=== PATIENT | male | born 1965 | race Caucasian/White ===

== ENCOUNTER 2016-10-06 11:42 | Inpatient (IN) | payer SELFPAY ==
[2016-10-06] MEDS ORDERED: Morphine 4 MG/ML VIAL IVP STA (12:04)
[2016-10-06] MEDS ORDERED: Sodium Chloride 0.9% 1,000 ML IV STA (12:05)
[2016-10-06] MEDS ORDERED: Morphine 4 MG/ML VIAL IVP ONE (12:15)
[2016-10-06 12:22] LABS: BASO % 0.5 % (0.0-2.0); EOS % 0.2 % (0.0-4.0); HEMOGLOBIN 11.7 g/dL (12.0-18.0); LYMPH # 1.2 K/uL (1.0-4.3); LYMPH % 17.5 % (20.0-40.0); MEAN CELL VOLUME 86.2 fl (80.0-94.0); MEAN CORPUSCULAR HEMOGLOBIN 28.4 pg (27.0-31.0); MEAN CORPUSCULAR HGB CONC 32.9 g/dL (33.0-37.0); MEAN PLATELET VOLUME 7.9 fl (7.2-11.7); MONO % 15.4 % (0.0-10.0); NEUT # 4.4 K/uL (1.8-7.0); NEUT % 66.4 % (50.0-75.0); NRBC % 1.1 % (0.0-0.0); RBC 4.14 Mil/uL (4.40-5.90); RED CELL DISTRIBUTION WIDTH 14.9 % (11.5-14.5); WHITE BLOOD COUNT 6.6 K/uL (4.8-10.8)
--- NOTE | 2016-10-06 12:39 | ED PDOC ---
HPI: Abdomen Time Seen by Provider: 10/06/16 11:47 Chief Complaint (Nursing): Abdominal Pain History Per: Patient (presents to the ER with complaints of acute onset of lower abdominal that started about 3 hours prior to arrival. He is s/p CABG at [facility] 2 weeks ago. He is a poor historian and is more limited because of the discomfort.) History/Exam Limitations: no limitations Onset/Duration Of Symptoms: Sudden Onset Severity: Severe Location Of Pain/Discomfort: LLQ Quality Of Discomfort: Sharp Associated Symptoms: Nausea, Vomiting, Loss Of Appetite, Constipation. denies: Fever, Chills Past Medical History Reviewed: Historical Data, Nursing Documentation, Vital Signs Vital Signs: Last Vital Signs Temp 97.6 F 10/06/16 11:44 Pulse 84 10/06/16 13:17 Resp 16 10/06/16 13:17 BP 173/83 H 10/06/16 13:17 Pulse Ox 99 10/06/16 13:17 - Medical History PMH: CAD - Surgical History Surgical History: CABG (about 2 weeks ago) - Family History Family History: States: No Known Family Hx - Living Arrangements Living Arrangements: With Family - Allergies Allergies/Adverse Reactions: Allergies Allergy/AdvReac Type Severity Reaction Status Date / Time No Known Allergies Allergy Verified 10/06/16 11:47 Review of Systems ROS Statement: Except As Marked, All Systems Reviewed And Found Negative Cardiovascular: Negative for: Chest Pain, Palpitations Gastrointestinal: Positive for: Nausea, Vomiting, Abdominal Pain Physical Exam - Reviewed Nursing Documentation Reviewed: Yes Vital Signs Reviewed: Yes - Physical Exam Appears: Positive for: Well, Non-toxic, Uncomfortable Head Exam: Positive for: ATRAUMATIC, NORMAL INSPECTION, NORMOCEPHALIC Skin: Positive for: Normal Color, Warm, DRY Eye Exam: Positive for: Normal appearance, PERRL ENT: Positive for: Normal ENT Inspection Neck: Positive for: Normal, Painless ROM Cardiovascular/Chest: Positive for: Regular Rate, Rhythm Respiratory: Positive for: CNT, Normal Breath Sounds Gastrointestinal/Abdominal: Positive for: Normal Exam, Soft, Tenderness (LLQ), Distended. Negative for: Bowel Sounds, Guarding Back: Positive for: Normal Inspection Rectal: Positive for: Normal Exam Extremity: Positive for: Normal ROM Neurologic/Psych: Positive for: Alert, Oriented - Laboratory Results Result Diagrams: 10/06/16 12:15 10/06/16 12:15 - ECG O2 Sat by Pulse Oximetry: 98 - Critical Care Total Time (In Min): 30 Comments: management of persistent pain and findings of small bowel obstruction Disposition - Clinical Impression Clinical Impression: SBO (small bowel obstruction) - Patient ED Disposition Is Patient to be Admitted: Yes Doctor Will See Patient In The: Hospital - Disposition Disposition: Transfer of Care Disposition Time: 14:00 Condition: GUARDED
[2016-10-06] MEDS ORDERED: Labetalol 5 mg/ml Inj 20ML IVP STA ×3 (12:44→15:23)
[2016-10-06 12:51] LABS: ALBUMIN 3.8 g/dL (3.5-5.0); CALCIUM 9.3 mg/dL (8.4-10.2)
[2016-10-06 13:02] LABS: TROPONIN I 0.044 ng/mL (0.00-0.120)
[2016-10-06] MEDS ORDERED: Morphine 4 MG/ML VIAL IV STA (13:55)
[2016-10-06] MEDS ORDERED: HYDROmorphone 0.5 mg/0.5 ml ISec IVP STA ×2 (15:23→15:47)
[2016-10-06] MEDS ORDERED: HYDROmorphone 0.5 mg/0.5 ml ISec IVP PRN (15:27)
--- NOTE | 2016-10-06 15:27 | CP.PCM.HP ---
History of Present Illness - History of Present Illness History of Present Illness: CC: pain in stomach HPI 51 M PMH CABG 2 weeks ago, back pain, HTN, presents with severe sharp abdominal pain associated with nausea and emesis for two days. Patient is accompanied by friend. In ER, pt found to have intractable abdominal pain, disproportionate to exam. CT showed evidence of mesenteric ischemia/infarction. Seen by surgery in ER, patient to go for emergent exploratory laparatomy with Dr. Sanchez. Pt also hypertensive, given labetalol 20 mg IVP x3, with moderate control. Pt has not taken any meds for 2 days bc of emesis. Elevated transaminases, GOPI. Pt to admit to ICU postoperatively. ROS: per HPI all other systems reviewd and neg by me PMSH: CABG 2 weeks ago, back pain, HTN FH: DENIES SH: dENIES TOBACCO ETOH IVDU MEDS: PENDING NKDA VITALS Reviewed GEN: pt in moderate distress, pale, diaphoretic HEENT: NCAT PERRL EOMI HEART: +RRR +S1S2, no MRG LUNG: CTAB no WRR ABD: soft generalized severe tenderness throughout. +rbound. +guarding. EXT: pale, strong pulses SKIN: warm, diaphoretic Psych: mod distress, normal affect 10/06/16 10/06/16 10/06/16 16:36 16:20 16:20 WBC RBC Hgb Hct MCV MCH MCHC RDW Plt Count MPV Neut % (Auto) Lymph % (Auto) [place] % (Auto) Eos % (Auto) Baso % (Auto) Neut # Lymph # [place] # Eos # Baso # PT 18.5 H INR 1.6 H APTT 33.3 Sodium Potassium Chloride Carbon Dioxide Anion Gap BUN Creatinine Est GFR ( Amer) Est GFR (Non-Af Amer) Random Glucose Calcium Magnesium Total Bilirubin AST ALT Alkaline Phosphatase Troponin I Total Protein Albumin Globulin Albumin/Globulin Ratio Lipase Urine Color Yellow Urine Clarity Slighty-cloudy Urine pH 5.0 Ur Specific [place] 1.026 Urine Protein 100 Urine Glucose (UA) 50 Urine Ketones Negative Urine Blood Moderate Urine Nitrate Negative Urine Bilirubin Negative Urine Urobilinogen 0.2-1.0 Ur Leukocyte Esterase Neg Urine RBC (Auto) 1 Urine Microscopic WBC 2 Ur Squamous Epith Cells < 1 Urine Bacteria Rare Blood Type Pending Antibody Screen Pending BBK History Checked No verified bt 10/06/16 10/06/16 12:15 12:15 WBC 6.6 RBC 4.14 L Hgb 11.7 L Hct 35.7 MCV 86.2 MCH 28.4 MCHC 32.9 L RDW 14.9 H Plt Count 353 MPV 7.9 Neut % (Auto) 66.4 Lymph % (Auto) 17.5 L [place] % (Auto) 15.4 H Eos % (Auto) 0.2 Baso % (Auto) 0.5 Neut # 4.4 Lymph # 1.2 [place] # 1.0 H Eos # 0.0 Baso # 0.0 PT INR APTT Sodium 141 Potassium 3.3 L Chloride 106 Carbon Dioxide 17 L Anion Gap 21 H BUN 27 H Creatinine 1.8 H Est GFR ( Amer) 49 Est GFR (Non-Af Amer) 40 Random Glucose 187 H Calcium 9.3 Magnesium 2.0 Total Bilirubin 1.4 H AST 974 H ALT 1413 H Alkaline Phosphatase 145 H Troponin I 0.0440 Total Protein 7.6 Albumin 3.8 Globulin 3.7 Albumin/Globulin Ratio 1.0 Lipase 46 Urine Color Urine Clarity Urine pH Ur Specific [place] Urine Protein Urine Glucose (UA) Urine Ketones Urine Blood Urine Nitrate Urine Bilirubin Urine Urobilinogen Ur Leukocyte Esterase Urine RBC (Auto) Urine Microscopic WBC Ur Squamous Epith Cells Urine Bacteria Blood Type Antibody Screen BBK History Checked 51 M PMH CABG 2 weeks ago, back pain, HTN, presents with severe sharp abdominal pain associated with nausea and emesis for two days. Patient is accompanied by friend. In ER, pt found to have intractable abdominal pain, disproportionate to exam. CT showed evidence of mesenteric ischemia/infarction. Seen by surgery in ER, patient to go for emergent exploratory laparatomy with Dr. Sanchez. Pt also hypertensive, given labetalol 20 mg IVP x3, with moderate control. Pt has not taken any meds for 2 days bc of emesis. Elevated transaminases, GOPI. Pt to admit to ICU postoperatively. Mesenteric Ischemia/Infarct Surgery Dr. Sanchez Emergent ExLap 10/06/16 Pain control monitor vitals in ICU Hypertension Secondary to mesenteric ischemia pt on metoprolol at home monitor Elevated transaminases likely secondary to mesenteric ischemia trend hepatic function monitor GOPI continue to hydrate patient monitor renal function CAD s/p CABG 2 weeks ago holding asa cont metoprolol monitor Present on Admission - Present on Admission Any Indicators Present on Admission: No Past Patient History - SURGICAL HISTORY Hx Coronary Artery Bypass Graft: Yes (about 2 weeks ago) Meds Allergies/Adverse Reactions: Allergies Allergy/AdvReac Type Severity Reaction Status Date / Time No Known Allergies Allergy Verified 10/06/16 11:47 Results - Vital Signs Recent Vital Signs: Last Vital Signs Temp 97.6 F 10/06/16 11:44 Pulse 83 10/06/16 14:47 Resp 16 10/06/16 14:47 BP 158/98 H 10/06/16 14:47 Pulse Ox 98 10/06/16 14:47 - Labs Result Diagrams: 10/06/16 12:15 10/06/16 12:15
[2016-10-06] MEDS ORDERED: HYDROmorphone 0.5 mg/0.5 ml ISec ONE (15:48)
[2016-10-06] MEDS ORDERED: Potassium CL 10mEq/100ml 100 ML IVPB SCH (16:00)
--- NOTE | 2016-10-06 16:01 | CT ---
PROCEDURE: CT abdomen pelvis dated 10/06/2016 HISTORY: SBO COMPARISON: Comparison made with plain film radiographs of the abdomen obtained earlier same day TECHNIQUE: Contiguous axial images of the abdomen and pelvis. Oral contrast was administered. No IV contrast given. Coronal and Sagittal reformats generated. Radiation dose: Total exam DLP = 1215.93 mGy-cm. This CT exam was performed using one or more of the following dose reduction techniques: Automated exposure control, adjustment of the mA and/or kV according to patient size, and/or use of iterative reconstruction technique. FINDINGS: LOWER THORAX: There are bilateral effusions and mild bibasilar atelectasis left greater than right. . There appears be a small pericardial effusion as well. In situ NGT, the tip of which is located in the stomach. LIVER: Diffuse portal venous air present. No obvious renal mass or collection GALLBLADDER AND BILE DUCTS: Gallbladder is physiologically distended. No evidence of intraluminal gallbladder calculi. PANCREAS: The pancreas slightly atrophic and fatty replaced. SPLEEN: Spleen exhibits normal size and attenuation pattern without mass collection or calcification. ADRENALS: No adrenal lesions. KIDNEYS AND URETERS: Kidneys exhibit relatively symmetric size. Small calcifications are present within both renal pelves. No evidence of hydronephrosis. There is a rounded approximately 13 mm exophytic masslike density arising from the posterior and medial aspect mid to lower pole of the right kidney with Hounsfield units in the mid 30s. Rule out hyperdense cyst versus solid mass. Followup study recommended to exclude malignant lesion. BLADDER: Urinary bladder is incompletely distended which may account for thick-walled appearance. Muscular hypertrophy may contribute. Rule out cystitis REPRODUCTIVE: Prostate gland measures approximately 3.3 cm. Prostatic calcifications are present. APPENDIX: Normal-appearing appendix of best seen on coronal image number [id number]. BOWEL: Evaluation of the bowel is limited due to the lack of oral contrast material. Multiple loops of small bowel exhibit mild dilatation and extensive pneumatosis intestinalis. Findings are of uncertain etiology however differential diagnosis would include bowel small-bowel obstruction,, bowel ischemia, infection/inflammatory bowel disease to name a few possibilities. . There are multiple colonic diverticula seen along sigmoid colon however no definitive radiographic evidence of acute diverticulitis. Few scattered colonic diverticula seen along the at descending colon. Mild diffuse submucosal fatty deposition of nonspecific. Rule out the sequela of chronic inflammation. PERITONEUM: Air is seen diffusely within the mesenteric venous system. . No definitive radiographic evidence of free fluid. LYMPH NODES: Unremarkable. No enlarged lymph nodes. VASCULATURE: No evidence of abdominal aortic aneurysm. BONES: Mild multilevel degenerative spondylosis of the lower thoracic and lumbar spine. OTHER FINDINGS: Bilateral fat containing inguinal hernias are present. IMPRESSION: The multiple dilated loops of small bowel which exhibit pneumatosis intestinalis and extensive portal venous air. Rule out bowel ischemia/ infarction, infection or inflammatory bowel disease. . . Emergent surgical consultation recommended Diverticulosis without definitive radiographic evidence of acute diverticulitis. Bilateral effusions and bibasilar atelectasis left larger than right. Small pericardial effusion. Cardiomegaly. Small exophytic hyperdense masslike lesion arising from the right kidney of; rule out hyperdense cyst versus a mass. Followup studies recommended to further characterize this lesion. Nonobstructing bilateral renal calculi. See above discussion for additional findings and details. These findings discussed with Dr. Hart and Dr. Crane 3:35 p.m. with written down and read back verification
--- NOTE | 2016-10-06 16:26 | RAD ---
PROCEDURE: Radiographs of the chest and abdomen (obstructive series) HISTORY: abdominal pain COMPARISON: This study was read in conjunction with subsequent CT scan abdomen pelvis TECHNIQUE: AP radiograph of the chest, with upright and supine radiographs of the abdomen. FINDINGS: CHEST: Sternotomy wires noted. Heart size appears borderline/mildly enlarged. Aorta is ectatic and uncoiled. Suspect mild bibasilar atelectasis left greater than right. Left-sided effusion is also felt to be present. ABDOMEN AND PELVIS: No free air seen under the diaphragmatic surfaces. . Multiple distended air-filled loops of small bowel predominately located in the left abdomen suggested. Pneumatosis intestinalis seen to better advantage on CT scan of the abdomen pelvis. Rule out bowel obstruction, ischemia, infection or inflammatory bowel disease. . These findings discussed with Dr. Hart and Dr. Crane 3:35 p.m. with written down and read back verification. Note that the portal venous air is not appreciated on this study. Please refer to CT scan abdomen pelvis Emergent surgical consultation recommended IMPRESSION: Suspect mild bibasilar atelectasis left greater than right. Left-sided effusion is also felt to be present Multiple distended air-filled loops of small bowel predominately located in the left abdomen suggested. Pneumatosis intestinalis seen to better advantage on CT scan of the abdomen pelvis. Rule out bowel obstruction, ischemia, infection or inflammatory bowel disease. . These findings discussed with Dr. Hart and Dr. Crane 3:35 p.m. with written down and read back verification. Note that the portal venous air is not appreciated on this study. Please refer to CT scan abdomen pelvis Emergent surgical consultation recommended
[2016-10-06 16:51] LABS: SQUAMOUS EPITHIAL < 1 /hpf (0-5); URINE BACTERIA RARE (<OCC); URINE BILIRUBIN NEGATIVE (NEGATIVE); URINE BLOOD MODERATE (NEGATIVE); URINE CLARITY SLIGHTY-CLOUDY (Clear); URINE COLOR YELLOW (YELLOW); URINE GLUCOSE (UA) 50 mg/dL (Normal); URINE LEUKOCYTE ESTERASE NEG Leu/uL (Negative); URINE NITRATE NEGATIVE (NEGATIVE); URINE PROTEIN 100 mg/dL (NEGATIVE); URINE UROBILINOGEN 0.2-1.0 mg/dL (0.2-1.0)
[2016-10-06 16:52] LABS: INR 1.6 (0.9-1.2); PARTIAL THROMBOPLASTIN TIME 33.3 Seconds (25.6-37.1); PROTHROMBIN TIME 18.5 Seconds (9.8-13.1)
[2016-10-06] MEDS ORDERED: Propofol 10 mg/ml Inj (20 ML) ONE (17:05)
[2016-10-06] MEDS ORDERED: Midazolam 2 MG/2 ML VIAL ONE (17:05)
[2016-10-06] MEDS ORDERED: Succinylcholine 200 mg/10 ml Inj IV ONE (17:05)
[2016-10-06] MEDS ORDERED: Lidocaine 4% (Laryng-O-Jet) Kit MM ONE (17:06)
[2016-10-06] MEDS ORDERED: Neostigmine Methylsulfate 2 MG/2 ML ML IV ONE (17:06)
[2016-10-06] MEDS ORDERED: Lidocaine Hydrochloride 5 ML INJ ONE (17:06)
[2016-10-06] MEDS ORDERED: Rocuronium 10 mg/ml (5 ml) ONE (17:08)
--- NOTE | 2016-10-06 17:27 | CP.PCM.CON ---
History of Present Illness - History of Present Illness History of Present Illness: 51 y.o. male comes to the hospital c/o severe diffuse abdominal pain for the duration of the last 2 days. Patient is in severe pain and not providing good history so most of the history is obtained from ER and medical staff. Patient reports nausea and vomiting, no fever or chills, states that never had such pain before. No urinary symptoms, no other complains at present time. Of note patient had CABG 2 weeks ago at another medical facility. Review of Systems - Constitutional Constitutional: As Per HPI - EENT Eyes: Other (unremarkable) Ears: Other (unremarkable) Nose/Mouth/Throat: Other (unremarkable) - Cardiovascular Cardiovascular: As Per HPI - Respiratory Respiratory: Other (unremarkable) - Gastrointestinal Gastrointestinal: As Per HPI - Genitourinary Genitourinary: As Per HPI - Reproductive: Male Reproductive:Male: Other (unremarkable) - Musculoskeletal Musculoskeletal: Other (unremarkable) - Integumentary Integumentary: Other (unremarkable) - Neurological Neurological: Other (unremarkable) - Psychiatric Psychiatric: Other (unremarkable) - Endocrine Endocrine: Other (unremarkable) - Hematologic/Lymphatic Hematologic: Other (unremarkable) Past Patient History - Past Medical History & Family History Past Medical History?: Yes - Past Social History Smoking Status: Former Smoker - CARDIAC Hx Cardiac Disorders: Yes - PULMONARY Hx Respiratory Disorders: No - NEUROLOGICAL Hx Neurological Disorder: No - HEENT Hx HEENT Problems: No - RENAL Hx Chronic Kidney Disease: No - ENDOCRINE/METABOLIC Hx Endocrine Disorders: No - HEMATOLOGICAL/ONCOLOGICAL Hx Blood Disorders: No - INTEGUMENTARY Hx Dermatological Problems: No - MUSCULOSKELETAL/RHEUMATOLOGICAL Hx Musculoskeletal Disorders: Yes - GASTROINTESTINAL Hx Gastrointestinal Disorders: No - GENITOURINARY/GYNECOLOGICAL Hx Genitourinary Disorders: No - PSYCHIATRIC Hx Psychophysiologic Disorder: No - SURGICAL HISTORY Hx Surgeries: Yes Hx Coronary Artery Bypass Graft: Yes (about 2 weeks ago) - ANESTHESIA Hx Anesthesia: Yes Hx Anesthesia Reactions: No Hx Malignant Hyperthermia: No Meds Allergies/Adverse Reactions: Allergies Allergy/AdvReac Type Severity Reaction Status Date / Time No Known Allergies Allergy Verified 10/06/16 11:47 - Medications Medications: Current Medications Acetaminophen (Tylenol 325mg Tab) 650 mg PO Q6 PRN PRN Reason: Fever >100.4 F Aspirin (Aspirin Chewable) 81 mg PO DAILY [facility] Enoxaparin Sodium (Lovenox) 40 mg SC DAILY [facility] PRN Reason: Protocol Hydromorphone HCl (Dilaudid) 0.5 mg IVP Q6 PRN PRN Reason: Pain, severe (8-10) Potassium Chloride (Potassium Chloride 10 Meq/100 Ml) 100 mls @ 100 mls/hr IVPB Q1 [facility] Stop: 10/06/16 19:59 Last Admin: 10/06/16 15:56 Dose: 100 mls/hr Metoprolol Tartrate (Lopressor) 25 mg PO Q12 [facility] Morphine Sulfate (Morphine) 2 mg IVP Q6 PRN PRN Reason: Pain, moderate (4-7) Ondansetron HCl (Zofran Inj) 4 mg IVP Q6 PRN PRN Reason: Nausea/Vomiting Physical Exam - Constitutional Appears: Toxic, Older Than Stated Age - Head Exam Head Exam: ATRAUMATIC, NORMAL INSPECTION, NORMOCEPHALIC - Eye Exam Eye Exam: EOMI, Normal appearance, PERRL Pupil Exam: NORMAL ACCOMODATION, PERRL - ENT Exam ENT Exam: Mucous Membranes Dry - Neck Exam Neck exam: Positive for: Normal Inspection - Respiratory Exam Respiratory Exam: Clear to Auscultation Bilateral, NORMAL BREATHING PATTERN - GI/Abdominal Exam GI & Abdominal Exam: Soft Additional comments: diffusely tender to palpation, very mildly distended, no rebound, guarding - Rectal Exam Rectal Exam: Deferred - Extremities Exam Extremities exam: Positive for: full ROM, normal inspection - Back Exam Back exam: NORMAL INSPECTION - Neurological Exam Neurological exam: Alert, Oriented x3 - Psychiatric Exam Psychiatric exam: Anxious - Skin Skin Exam: Dry, Intact, Normal Color, Warm Additional comments: median sternotomy scar from recent CABG Results - Vital Signs Recent Vital Signs: Last Vital Signs Temp 97.6 F 10/06/16 11:44 Pulse 81 10/06/16 16:15 Resp 14 10/06/16 16:15 BP 179/83 H 10/06/16 16:15 Pulse Ox 95 10/06/16 15:58 - Labs Result Diagrams: 10/06/16 12:15 10/06/16 12:15 Labs: Laboratory Results - last 24 hr 10/06/16 10/06/16 10/06/16 16:20 16:20 16:36 PT 18.5 H INR 1.6 H APTT 33.3 Urine Color Yellow Urine Clarity Slighty-cloudy Urine pH 5.0 Ur Specific [place] 1.026 Urine Protein 100 Urine Glucose (UA) 50 Urine Ketones Negative Urine Blood Moderate Urine Nitrate Negative Urine Bilirubin Negative Urine Urobilinogen 0.2-1.0 Ur Leukocyte Esterase Neg Urine RBC (Auto) 1 Urine Microscopic WBC 2 Ur Squamous Epith Cells < 1 Urine Bacteria Rare BBK History Checked No verified bt - Imaging and Cardiology CT scan - abdomen Status: Image reviewed by me, Report reviewed by me Assessment & Plan - Assessment and Plan (Free Text) Assessment: 51 y.o. male with abdominal pain and CT scan findings concerning for mesenteric ischemia Plan: - Keep NPO - Agressive IV fluid hydration - NG tube to wall suction - Pain control - Antibiotics - To OR for Exploratory Laparotomy, possible bowel resection
[2016-10-06] MEDS ORDERED: metroNIDAZOLE 500mg/100ml NS 0 ML IVPB ONE (17:54)
[2016-10-06] MEDS ORDERED: Gentamicin 80mg/50ml NS 0 MG/0 ML BAG IVPB ONE (17:54)
[2016-10-06] MEDS ORDERED: Lactated Ringer's 1,000 ML IV ONE ×2 (18:15→18:20)
[2016-10-06] MEDS ORDERED: ePHEDrine 50 mg/ml Inj ONE (18:49)
[2016-10-06] MEDS ORDERED: Phenylephrine 10 mg/ml Inj ONE (19:03)
--- NOTE | 2016-10-06 19:40 | PCM.SURG1 ---
Surgeon's Initial Post Op Note - Surgeon's Notes Surgeon: Dr. Sanchez Supervisor Kennel: Boy PGY1 Type of Anesthesia: General Endo Pre-Operative Diagnosis: Messenteric Ischemia Operative Findings: Ischemic entire small bowel and right colon Post-Operative Diagnosis: Messenteric ischemia Operation Performed: Exploratory laparotomy with examination of entire bowel Specimen/Specimens Removed: none Estimated Blood Loss: EBL {In ML}: 20 Blood Products Given: N/A Drains Used: No Drains Post-Op Condition: Poor Date of Surgery/Procedure: 10/06/16 Time of Surgery/Procedure: 19:43
[2016-10-06] MEDS ORDERED: Piperacillin/Tazobact 3.375 GM in Sodium Chloride 0.9% 100 ML IVPB SCH (19:45)
[2016-10-06] MEDS: Propofol 10 mg/ml Inj (100 ml) IV SCH ×2 (20:05→23:29)
[2016-10-07] MEDS ORDERED: Morphine 4 MG/ML VIAL IVP ONE (00:33)
[2016-10-07] MEDS: Propofol 10 mg/ml 1,000 MG/100 ML VIAL IV SCH ×3 (01:05→17:00)
[2016-10-07] MEDS: Lactated Ringer's 1,000 ML IV SCH ×3 (01:11→23:45)
[2016-10-07 01:22] VITALS: BMI 27.3
[2016-10-07] MEDS: Piperacillin/Tazobact 3.375 GM in Sodium Chloride 0.9% 100 ML IVPB SCH ×4 (03:38→22:20)
[2016-10-07 06:09] LABS: ABG ALLEN TEST YES; ARTERIAL BLOOD GAS HCO3 14.2 mmol/L (21-28); ARTERIAL BLOOD GAS HEMOGLOBIN 11.8 g/dL (11.7-17.4); ARTERIAL BLOOD GAS O2 CAPACITY 16.3 mL/dL (16-24); ARTERIAL BLOOD GAS O2 CONTENT 16.1 ML/dL (15-23); ARTERIAL BLOOD GAS O2 SAT 98.8 % (95-98); ARTERIAL BLOOD GAS PCO2 34 mm/Hg (35-45); ARTERIAL BLOOD GAS PO2 137 mm/Hg (80-100); ARTERIAL BLOOD GAS TCO2 14.3 mmol/L (22-28)
[2016-10-07 06:45] LABS: BASO % 0.3 % (0.0-2.0); EOS % 0.2 % (0.0-4.0); HEMOGLOBIN 11.1 g/dL (12.0-18.0); LYMPH # 0.7 K/uL (1.0-4.3); MEAN CORPUSCULAR HGB CONC 31.1 g/dL (33.0-37.0); MONO # 1.5 K/uL (0.0-0.8); NEUT # 6.9 K/uL (1.8-7.0); NEUT % 75.5 % (50.0-75.0); NRBC % 12.4 % (0.0-0.0); PLATELET COUNT 262 K/uL (130-400); RBC 3.98 Mil/uL (4.40-5.90); RED CELL DISTRIBUTION WIDTH 15.5 % (11.5-14.5); WHITE BLOOD COUNT 9.2 K/uL (4.8-10.8)
[2016-10-07 06:52] LABS: ALB/GLOB RATIO 0.9 (1.0-2.1); ALBUMIN 3.1 g/dL (3.5-5.0); CALCIUM 8.7 mg/dL (8.4-10.2)
--- NOTE | 2016-10-07 07:59 | CP.CCUPN ---
CCU Subjective - Physician Review Events Since Last Encounter (Free Text): 10/07/16 07:56 Patient on ventilator, on PRVC TV 550, RR 14, FIO2 100%, sedated on deprivan drip, no response to verbal stimuli, events reviewed CCU Objective - Vital Signs / Intake & Output Vital Signs (Last 4 hours): Vital Signs Temp Pulse Resp BP Pulse Ox 10/07/16 06:29 96 H 17 120/73 100 10/07/16 06:00 98.7 F 105 H 25 H 120/73 100 10/07/16 05:40 120 H 45 H 143/79 95 10/07/16 05:10 116 H 27 H 148/86 95 10/07/16 04:30 43 H 113/98 H 10/07/16 04:00 98.7 F 114 H 23 130/77 99 Intake and Output (Last 8hrs): Intake & Output 10/06/16 10/07/16 10/07/16 22:59 06:59 14:59 Intake Total 1200 1205 Output Total 110 350 Balance 1090 855 Weight 190 lb Intake: IV 1100 955 Intake, Piggyback 100 250 Oral 0 0 Output: Gastric Drainage 10 Gastric Amount 100 Stomach 100 Urine 100 250 Urethral (Taylor) 250 Other: # Bowel Movements 0 - Physical Exam Head: Positive for: Atraumatic, Normocephalic Conjunctiva: Positive for: Normal Ears: Positive for: Normal Mouth: Positive for: Moist Mucous Membranes Nose (External): Positive for: Atraumatic Nose (Internal): Positive for: Normal Inspection Neck: Positive for: Normal Range of Motion Respiratory/Chest: Positive for: Clear to Auscultation Cardiovascular: Positive for: Regular Rate and Rhythm Abdomen: Positive for: Other (dressing present) Upper Extremity: Positive for: Normal Inspection Lower Extremity: Positive for: Normal Inspection Neurological: Positive for: Other (on ventilator, sedated, no response to verbal stimuli) - Medications Active Medications: Active Medications Generic Name Dose Route Start Last Admin Trade Name Freq PRN Reason Stop Dose Admin Acetaminophen 650 mg 10/06/16 15:27 Tylenol 325mg Tab PO Q6 PRN Fever >100.4 F Aspirin 81 mg 10/07/16 09:00 Aspirin Chewable PO DAILY RUTHY Hydromorphone HCl 0.5 mg 10/06/16 15:27 Dilaudid IVP Q6 PRN Pain, severe (8-10) Lactated Ringer's 1,000 mls @ 100 mls/hr 10/06/16 19:45 10/07/16 01:11 Lactated Ringer's IV 100 mls/hr .Q10H R[facility]Y Administration Propofol 1,000 mg in 100 mls @ 2.449 mls/hr 10/06/16 23:45 10/07/16 06:42 Diprivan IV 10/07/16 23:40 25 mcg/kg/min .Q24H RUTHY 12.247 mls/hr Protocol Titration 5 MCG/KG/MIN Piperacillin Sod/Tazobactam 100 mls @ 100 mls/hr 10/07/16 04:00 10/07/16 03: 38 Sod 3.375 gm/ Sodium Chloride IVPB 100 mls/hr 0400,1000,1600,2200 R[facility]Y Administration Metoprolol Tartrate 25 mg 10/06/16 21:00 10/06/16 23:18 Lopressor PO Not Given Q12 R[facility]Y Morphine Sulfate 2 mg 10/06/16 15:27 Morphine IVP Q6 PRN Pain, moderate (4-7) Ondansetron HCl 4 mg 10/06/16 15:27 Zofran Inj IVP Q6 PRN Nausea/Vomiting Propofol 1,000 mg 10/06/16 20:00 10/06/16 23:29 Diprivan IV 1,000 mg .TITRATE RUTHY Administration - Patient Studies Lab Studies: Lab Studies 10/07/16 10/07/16 10/07/16 Range/Units 06:00 06:00 04:55 WBC 9.2 (4.8-10.8) K/uL RBC 3.98 L (4.40-5.90) Mil/uL Hgb 11.1 L (12.0-18.0) g/dL Hct 35.8 (35.0-51.0) % MCV 90.0 D (80.0-94.0) fl MCH 28.0 (27.0-31.0) pg MCHC 31.1 L (33.0-37.0) g/dL RDW 15.5 H (11.5-14.5) % Plt Count 262 (130-400) K/uL MPV 8.0 (7.2-11.7) fl Neut % (Auto) 75.5 H (50.0-75.0) % Lymph % (Auto) 8.0 L (20.0-40.0) % [place] % (Auto) 16.0 H (0.0-10.0) % Eos % (Auto) 0.2 (0.0-4.0) % Baso % (Auto) 0.3 (0.0-2.0) % Neut # 6.9 (1.8-7.0) K/uL Lymph # 0.7 L (1.0-4.3) K/uL [place] # 1.5 H (0.0-0.8) K/uL Eos # 0.0 (0.0-0.7) K/uL Baso # 0.0 (0.0-0.2) K/uL PT (9.8-13.1) Seconds INR (0.9-1.2) APTT (25.6-37.1) Seconds pCO2 34 L (35-45) mm/Hg pO2 137 H (80-100) mm/Hg HCO3 14.2 L (21-28) mmol/L ABG pH 7.20 L (7.35-7.45) ABG Total CO2 14.3 L (22-28) mmol/L ABG O2 Saturation 98.8 H (95-98) % ABG O2 Content 16.1 (15-23) ML/dL ABG Base Excess -13.7 L (-2.0-3.0) mmol/L ABG Hemoglobin 11.8 (11.7-17.4) g/dL ABG Carboxyhemoglobin 1.2 (0.5-1.5) % POC ABG HHb (Measured) 1.2 (0.0-5.0) % ABG Methemoglobin 1.7 (0.0-3.0) % ABG O2 Capacity 16.3 (16-24) mL/dL Quirino Test Yes A-a O2 Difference 534.0 mm/Hg Hgb O2 Saturation 95.8 (95.0-98.0) % Vent Mode Prvc/ac Mechanical Rate 14 FiO2 100.0 % Tidal Volume 550 Sodium 147 (132-148) mmol/l Potassium 3.9 (3.6-5.0) MMOL/L Chloride 112 H (98-107) mmol/L Carbon Dioxide 14 L (22-30) mmol/L Anion Gap 25 H (10-20) BUN 36 H (9-20) mg/dl Creatinine 3.0 H (0.8-1.5) mg/dL Est GFR ( Amer) 27 Est GFR (Non-Af Amer) 22 Random Glucose 91 (75-110) mg/dL Calcium 8.7 (8.4-10.2) mg/dL Total Bilirubin 1.7 H (0.2-1.3) mg/dl AST 628 H D (17-59) U/L ALT 871 H D (21-72) U/L Alkaline Phosphatase 109 (38-126) U/L Total Protein 6.7 (6.3-8.2) G/DL Albumin 3.1 L (3.5-5.0) g/dL Globulin 3.5 (2.2-3.9) gm/dL Albumin/Globulin Ratio 0.9 L (1.0-2.1) Urine Color (YELLOW) Urine Clarity (Clear) Urine pH (5.0-8.0) Ur Specific Post (1.003-1.030) Urine Protein (NEGATIVE) mg/dL Urine Glucose (UA) (Normal) mg/dL Urine Ketones (NEGATIVE) mg/dL Urine Blood (NEGATIVE) Urine Nitrate (NEGATIVE) Urine Bilirubin (NEGATIVE) Urine Urobilinogen (0.2-1.0) mg/dL Ur Leukocyte Esterase (Negative) Frantz/uL Urine RBC (Auto) (0-3) /hpf Urine Microscopic WBC (0-5) /hpf Ur Squamous Epith Cells (0-5) /hpf Urine Bacteria (<OCC) Stool Occult Blood (NEGATIVE) Blood Type Blood Type Confirm Antibody Screen BBK History Checked 10/06/16 10/06/16 10/06/16 Range/Units 16:59 16:36 16:20 WBC (4.8-10.8) K/uL RBC (4.40-5.90) Mil/uL Hgb (12.0-18.0) g/dL Hct (35.0-51.0) % MCV (80.0-94.0) fl MCH (27.0-31.0) pg MCHC (33.0-37.0) g/dL RDW (11.5-14.5) % Plt Count (130-400) K/uL MPV (7.2-11.7) fl Neut % (Auto) (50.0-75.0) % Lymph % (Auto) (20.0-40.0) % [place] % (Auto) (0.0-10.0) % Eos % (Auto) (0.0-4.0) % Baso % (Auto) (0.0-2.0) % Neut # (1.8-7.0) K/uL Lymph # (1.0-4.3) K/uL [place] # (0.0-0.8) K/uL Eos # (0.0-0.7) K/uL Baso # (0.0-0.2) K/uL PT 18.5 H (9.8-13.1) Seconds INR 1.6 H (0.9-1.2) APTT 33.3 (25.6-37.1) Seconds pCO2 (35-45) mm/Hg pO2 (80-100) mm/Hg HCO3 (21-28) mmol/L ABG pH (7.35-7.45) ABG Total CO2 (22-28) mmol/L ABG O2 Saturation (95-98) % ABG O2 Content (15-23) ML/dL ABG Base Excess (-2.0-3.0) mmol/L ABG Hemoglobin (11.7-17.4) g/dL ABG Carboxyhemoglobin (0.5-1.5) % POC ABG HHb (Measured) (0.0-5.0) % ABG Methemoglobin (0.0-3.0) % ABG O2 Capacity (16-24) mL/dL Quirino Test A-a O2 Difference mm/Hg Hgb O2 Saturation (95.0-98.0) % Vent Mode Mechanical Rate FiO2 % Tidal Volume Sodium (132-148) mmol/l Potassium (3.6-5.0) MMOL/L Chloride (98-107) mmol/L Carbon Dioxide (22-30) mmol/L Anion Gap (10-20) BUN (9-20) mg/dl Creatinine (0.8-1.5) mg/dL Est GFR ( Amer) Est GFR (Non-Af Amer) Random Glucose (75-110) mg/dL Calcium (8.4-10.2) mg/dL Total Bilirubin (0.2-1.3) mg/dl AST (17-59) U/L ALT (21-72) U/L Alkaline Phosphatase (38-126) U/L Total Protein (6.3-8.2) G/DL Albumin (3.5-5.0) g/dL Globulin (2.2-3.9) gm/dL Albumin/Globulin Ratio (1.0-2.1) Urine Color Yellow (YELLOW) Urine Clarity Slighty-cloudy (Clear) Urine pH 5.0 (5.0-8.0) Ur Specific Post 1.026 (1.003-1.030) Urine Protein 100 (NEGATIVE) mg/dL Urine Glucose (UA) 50 (Normal) mg/dL Urine Ketones Negative (NEGATIVE) mg/dL Urine Blood Moderate (NEGATIVE) Urine Nitrate Negative (NEGATIVE) Urine Bilirubin Negative (NEGATIVE) Urine Urobilinogen 0.2-1.0 (0.2-1.0) mg/dL Ur Leukocyte Esterase Neg (Negative) Frantz/uL Urine RBC (Auto) 1 (0-3) /hpf Urine Microscopic WBC 2 (0-5) /hpf Ur Squamous Epith Cells < 1 (0-5) /hpf Urine Bacteria Rare (<OCC) Stool Occult Blood (NEGATIVE) Blood Type Blood Type Confirm O POSITIVE Antibody Screen BBK History Checked 10/06/16 10/06/16 Range/Units 16:20 16:05 WBC (4.8-10.8) K/uL RBC (4.40-5.90) Mil/uL Hgb (12.0-18.0) g/dL Hct (35.0-51.0) % MCV (80.0-94.0) fl MCH (27.0-31.0) pg MCHC (33.0-37.0) g/dL RDW (11.5-14.5) % Plt Count (130-400) K/uL MPV (7.2-11.7) fl Neut % (Auto) (50.0-75.0) % Lymph % (Auto) (20.0-40.0) % [place] % (Auto) (0.0-10.0) % Eos % (Auto) (0.0-4.0) % Baso % (Auto) (0.0-2.0) % Neut # (1.8-7.0) K/uL Lymph # (1.0-4.3) K/uL [place] # (0.0-0.8) K/uL Eos # (0.0-0.7) K/uL Baso # (0.0-0.2) K/uL PT (9.8-13.1) Seconds INR (0.9-1.2) APTT (25.6-37.1) Seconds pCO2 (35-45) mm/Hg pO2 (80-100) mm/Hg HCO3 (21-28) mmol/L ABG pH (7.35-7.45) ABG Total CO2 (22-28) mmol/L ABG O2 Saturation (95-98) % ABG O2 Content (15-23) ML/dL ABG Base Excess (-2.0-3.0) mmol/L ABG Hemoglobin (11.7-17.4) g/dL ABG Carboxyhemoglobin (0.5-1.5) % POC ABG HHb (Measured) (0.0-5.0) % ABG Methemoglobin (0.0-3.0) % ABG O2 Capacity (16-24) mL/dL Quirino Test A-a O2 Difference mm/Hg Hgb O2 Saturation (95.0-98.0) % Vent Mode Mechanical Rate FiO2 % Tidal Volume Sodium (132-148) mmol/l Potassium (3.6-5.0) MMOL/L Chloride (98-107) mmol/L Carbon Dioxide (22-30) mmol/L Anion Gap (10-20) BUN (9-20) mg/dl Creatinine (0.8-1.5) mg/dL Est GFR ( Amer) Est GFR (Non-Af Amer) Random Glucose (75-110) mg/dL Calcium (8.4-10.2) mg/dL Total Bilirubin (0.2-1.3) mg/dl AST (17-59) U/L ALT (21-72) U/L Alkaline Phosphatase (38-126) U/L Total Protein (6.3-8.2) G/DL Albumin (3.5-5.0) g/dL Globulin (2.2-3.9) gm/dL Albumin/Globulin Ratio (1.0-2.1) Urine Color (YELLOW) Urine Clarity (Clear) Urine pH (5.0-8.0) Ur Specific Post (1.003-1.030) Urine Protein (NEGATIVE) mg/dL Urine Glucose (UA) (Normal) mg/dL Urine Ketones (NEGATIVE) mg/dL Urine Blood (NEGATIVE) Urine Nitrate (NEGATIVE) Urine Bilirubin (NEGATIVE) Urine Urobilinogen (0.2-1.0) mg/dL Ur Leukocyte Esterase (Negative) Frantz/uL Urine RBC (Auto) (0-3) /hpf Urine Microscopic WBC (0-5) /hpf Ur Squamous Epith Cells (0-5) /hpf Urine Bacteria (<OCC) Stool Occult Blood Positive H (NEGATIVE) Blood Type O POSITIVE Blood Type Confirm Antibody Screen Negative BBK History Checked No verified bt Laboratory Results - last 24 hr 10/06/16 10/06/16 10/06/16 16:05 16:20 16:20 WBC RBC Hgb Hct MCV MCH MCHC RDW Plt Count MPV Neut % (Auto) Lymph % (Auto) [place] % (Auto) Eos % (Auto) Baso % (Auto) Neut # Lymph # [place] # Eos # Baso # PT 18.5 H INR 1.6 H APTT 33.3 pCO2 pO2 HCO3 ABG pH ABG Total CO2 ABG O2 Saturation ABG O2 Content ABG Base Excess ABG Hemoglobin ABG Carboxyhemoglobin POC ABG HHb (Measured) ABG Methemoglobin ABG O2 Capacity Quirino Test A-a O2 Difference Hgb O2 Saturation Vent Mode Mechanical Rate FiO2 Tidal Volume Sodium Potassium Chloride Carbon Dioxide Anion Gap BUN Creatinine Est GFR ( Amer) Est GFR (Non-Af Amer) Random Glucose Calcium Total Bilirubin AST ALT Alkaline Phosphatase Total Protein Albumin Globulin Albumin/Globulin Ratio Urine Color Urine Clarity Urine pH Ur Specific Post Urine Protein Urine Glucose (UA) Urine Ketones Urine Blood Urine Nitrate Urine Bilirubin Urine Urobilinogen Ur Leukocyte Esterase Urine RBC (Auto) Urine Microscopic WBC Ur Squamous Epith Cells Urine Bacteria Stool Occult Blood Positive H Blood Type O POSITIVE Blood Type Confirm Antibody Screen Negative BBK History Checked No verified bt 10/06/16 10/06/16 10/07/16 16:36 16:59 04:55 WBC RBC Hgb Hct MCV MCH MCHC RDW Plt Count MPV Neut % (Auto) Lymph % (Auto) [place] % (Auto) Eos % (Auto) Baso % (Auto) Neut # Lymph # [place] # Eos # Baso # PT INR APTT pCO2 34 L pO2 137 H HCO3 14.2 L ABG pH 7.20 L ABG Total CO2 14.3 L ABG O2 Saturation 98.8 H ABG O2 Content 16.1 ABG Base Excess -13.7 L ABG Hemoglobin 11.8 ABG Carboxyhemoglobin 1.2 POC ABG HHb (Measured) 1.2 ABG Methemoglobin 1.7 ABG O2 Capacity 16.3 Quirino Test Yes A-a O2 Difference 534.0 Hgb O2 Saturation 95.8 Vent Mode Prvc/ac Mechanical Rate 14 FiO2 100.0 Tidal Volume 550 Sodium Potassium Chloride Carbon Dioxide Anion Gap BUN Creatinine Est GFR ( Amer) Est GFR (Non-Af Amer) Random Glucose Calcium Total Bilirubin AST ALT Alkaline Phosphatase Total Protein Albumin Globulin Albumin/Globulin Ratio Urine Color Yellow Urine Clarity Slighty-cloudy Urine pH 5.0 Ur Specific Post 1.026 Urine Protein 100 Urine Glucose (UA) 50 Urine Ketones Negative Urine Blood Moderate Urine Nitrate Negative Urine Bilirubin Negative Urine Urobilinogen 0.2-1.0 Ur Leukocyte Esterase Neg Urine RBC (Auto) 1 Urine Microscopic WBC 2 Ur Squamous Epith Cells < 1 Urine Bacteria Rare Stool Occult Blood Blood Type Blood Type Confirm O POSITIVE Antibody Screen BBK History Checked 10/07/16 10/07/16 06:00 06:00 WBC 9.2 RBC 3.98 L Hgb 11.1 L Hct 35.8 MCV 90.0 D MCH 28.0 MCHC 31.1 L RDW 15.5 H Plt Count 262 MPV 8.0 Neut % (Auto) 75.5 H Lymph % (Auto) 8.0 L [place] % (Auto) 16.0 H Eos % (Auto) 0.2 Baso % (Auto) 0.3 Neut # 6.9 Lymph # 0.7 L [place] # 1.5 H Eos # 0.0 Baso # 0.0 PT INR APTT pCO2 pO2 HCO3 ABG pH ABG Total CO2 ABG O2 Saturation ABG O2 Content ABG Base Excess ABG Hemoglobin ABG Carboxyhemoglobin POC ABG HHb (Measured) ABG Methemoglobin ABG O2 Capacity Quirino Test A-a O2 Difference Hgb O2 Saturation Vent Mode Mechanical Rate FiO2 Tidal Volume Sodium 147 Potassium 3.9 Chloride 112 H Carbon Dioxide 14 L Anion Gap 25 H BUN 36 H Creatinine 3.0 H Est GFR ( Amer) 27 Est GFR (Non-Af Amer) 22 Random Glucose 91 Calcium 8.7 Total Bilirubin 1.7 H AST 628 H D ALT 871 H D Alkaline Phosphatase 109 Total Protein 6.7 Albumin 3.1 L Globulin 3.5 Albumin/Globulin Ratio 0.9 L Urine Color Urine Clarity Urine pH Ur Specific Post Urine Protein Urine Glucose (UA) Urine Ketones Urine Blood Urine Nitrate Urine Bilirubin Urine Urobilinogen Ur Leukocyte Esterase Urine RBC (Auto) Urine Microscopic WBC Ur Squamous Epith Cells Urine Bacteria Stool Occult Blood Blood Type Blood Type Confirm Antibody Screen BBK History Checked Assessment/Plan - Assessment and Plan (Free Text) Assessment: A/P Respiratory failure, ischemic bowel s/p laprotomy (ischemic entire small bowel and Rt colon, no resection), CAD s/p CABGE, GOIP, elevated transaminases, sepsis , metabolic acidosis, multiorgan failure - Ventilatory support - IV fluid - Continue meds - surgery follow up - Pulmonary toilets - Extremely poor prognosis Critical care 40 min
[2016-10-07] MEDS ORDERED: Enoxaparin 40 mg Syringe SC SCH (09:00)
[2016-10-07] MEDS ORDERED: Sodium Bicarbonate 7.5% (0.9 MEQ/ML) 50ML INJ IV ONE (09:04)
[2016-10-07] MEDS ORDERED: Sodium Chloride 0.9% 1,000 ML IV SCH (09:15)
--- NOTE | 2016-10-07 09:46 | CP.PCM.PN ---
<Kyle Brunson - Last Filed: 10/07/16 09:44> Subjective - Date & Time of Evaluation Date of Evaluation: 10/07/16 Time of Evaluation: 09:44 - Subjective Subjective: Surgery progress note. Dr. Sanchez Pt seen and examined at bedside. Patient is unresponsive to verbal or tactile stimuli. Patient is on ventilator support. Not on any pressors at the moment. Taylor in place. NGT in place. Objective - Vital Signs/Intake and Output Vital Signs (last 24 hours): Temp Pulse Resp BP Pulse Ox 98.9 F 90 19 86/53 L 99 10/07/16 08:00 10/07/16 08:56 10/07/16 08:00 10/07/16 08:56 10/07/16 08:00 Intake and Output: 10/07/16 10/07/16 06:59 18:59 Intake Total 1805 45 Output Total 460 20 Balance 1345 25 - Medications Medications: Current Medications Acetaminophen (Tylenol 325mg Tab) 650 mg PO Q6 PRN PRN Reason: Fever >100.4 F Aspirin (Aspirin Chewable) 81 mg PO DAILY [facility] Last Admin: 10/07/16 08:54 Dose: Not Given Hydromorphone HCl (Dilaudid) 0.5 mg IVP Q6 PRN PRN Reason: Pain, severe (8-10) Lactated Ringer's (Lactated Ringer's) 1,000 mls @ 100 mls/hr IV .Q10H [facility] Last Admin: 10/07/16 01:11 Dose: 100 mls/hr Propofol (Diprivan) 1,000 mg in 100 mls @ 2.449 mls/hr IV .Q24H [facility]; 5 MCG/KG/ MIN PRN Reason: Protocol Stop: 10/07/16 23:40 Last Admin: 10/07/16 08:55 Dose: 25 mcg/kg/min, 12.247 mls/hr Piperacillin Sod/Tazobactam (Sod 3.375 gm/ Sodium Chloride) 100 mls @ 100 mls/ hr IVPB 0400,1000,1600,2200 [facility] Last Admin: 10/07/16 03:38 Dose: 100 mls/hr Sodium Chloride (Sodium Chloride 0.9%) 1,000 mls @ 999 mls/hr IV .Q1H1M [facility] Stop: 10/08/16 09:06 Metoprolol Tartrate (Lopressor) 25 mg PO Q12 [facility] Last Admin: 10/07/16 08:56 Dose: Not Given Morphine Sulfate (Morphine) 2 mg IVP Q6 PRN PRN Reason: Pain, moderate (4-7) Ondansetron HCl (Zofran Inj) 4 mg IVP Q6 PRN PRN Reason: Nausea/Vomiting Propofol (Diprivan) 1,000 mg IV .TITRATE [facility] Last Admin: 10/06/16 23:29 Dose: 1,000 mg - Labs Labs: 10/07/16 06:00 10/07/16 06:00 PT 18.5 Seconds (9.8-13.1) H 10/06/16 16:20 INR 1.6 (0.9-1.2) H 10/06/16 16:20 APTT 33.3 Seconds (25.6-37.1) 10/06/16 16:20 - Head Exam Head Exam: ATRAUMATIC, NORMAL INSPECTION, NORMOCEPHALIC - ENT Exam Additional comments: NGT in place, 100cc dark bloody output. On ventilator support: PRVC TV 550, RR 14, FIO2 100% - Respiratory Exam Additional comments: intubated and on ventilator - GI/Abdominal Exam Additional comments: midline incision intact. Dressing clean, dry and intact. - Extremities Exam Extremities Exam: Normal Inspection. absent: Pedal Edema - Neurological Exam Neurological Exam: absent: Alert, Awake Additional comments: unresponsive to verbal or tactile stimuli Assessment and Plan - Assessment and Plan (Free Text) Assessment: 51yo M with Mesenteric Ischemia. S/p Ex lap with examination of entire bowel / 8. POD 1 - Ischemic entire small bowel and right colon - poor prognosis - Continue to medically optimize - Strict I&Os - NGT to suction - Continue ABX further recs as per Dr. Daniel Brunson PGY1 <Calixto Sanchez - Last Filed: 10/07/16 15:54> Subjective - Date & Time of Evaluation Time of Evaluation: 15:25 - Subjective Subjective: Patient was seen and examined at the bedside. Agree with resident's note above Objective - Vital Signs/Intake and Output Vital Signs (last 24 hours): Temp Pulse Resp BP Pulse Ox 99 F 102 H 27 H 105/54 L 98 10/07/16 12:00 10/07/16 15:00 10/07/16 15:00 10/07/16 15:00 10/07/16 15:00 Intake and Output: 10/07/16 10/07/16 06:59 18:59 Intake Total 1805 1299 Output Total 460 45 Balance 1345 1254 - Medications Medications: Current Medications Acetaminophen (Tylenol 325mg Tab) 650 mg PO Q6 PRN PRN Reason: Fever >100.4 F Aspirin (Aspirin Chewable) 81 mg PO DAILY [facility] Last Admin: 10/07/16 08:54 Dose: Not Given Hydromorphone HCl (Dilaudid) 0.5 mg IVP Q6 PRN PRN Reason: Pain, severe (8-10) Lactated Ringer's (Lactated Ringer's) 1,000 mls @ 100 mls/hr IV .Q10H [facility] Last Admin: 10/07/16 01:11 Dose: 100 mls/hr Propofol (Diprivan) 1,000 mg in 100 mls @ 2.449 mls/hr IV .Q24H [facility]; 5 MCG/KG/ MIN PRN Reason: Protocol Stop: 10/07/16 23:40 Last Admin: 10/07/16 08:55 Dose: 25 mcg/kg/min, 12.247 mls/hr Piperacillin Sod/Tazobactam (Sod 3.375 gm/ Sodium Chloride) 100 mls @ 100 mls/ hr IVPB 0400,1000,1600,2200 [facility] Last Admin: 10/07/16 09:59 Dose: 100 mls/hr Sodium Chloride (Sodium Chloride 0.9%) 1,000 mls @ 999 mls/hr IV .Q1H1M [facility] Stop: 10/08/16 09:06 Last Admin: 10/07/16 09:58 Dose: 999 mls/hr Norepinephrine Bitartrate 4 mg (/ Dextrose) 254 mls @ 9.52 mls/hr IV .Q24H [facility] ; 2.5 MCG/MIN PRN Reason: Protocol Last Titration: 10/07/16 12:20 Dose: 10 mcg/min, 38.1 mls/hr Sodium Bicarbonate 100 meq/ (Dextrose) 1,100 mls @ 100 mls/hr IV .Q11H [facility] Stop: 10/08/16 10:20 Last Admin: 10/07/16 12:14 Dose: 100 mls/hr Metoprolol Tartrate (Lopressor) 25 mg PO Q12 [facility] Last Admin: 10/07/16 08:56 Dose: Not Given Morphine Sulfate (Morphine) 2 mg IVP Q6 PRN PRN Reason: Pain, moderate (4-7) Ondansetron HCl (Zofran Inj) 4 mg IVP Q6 PRN PRN Reason: Nausea/Vomiting Propofol (Diprivan) 1,000 mg IV .TITRATE [facility] Last Admin: 10/06/16 23:29 Dose: 1,000 mg - Labs Labs: 10/07/16 06:00 10/07/16 06:00 PT 18.5 Seconds (9.8-13.1) H 10/06/16 16:20 INR 1.6 (0.9-1.2) H 10/06/16 16:20 APTT 33.3 Seconds (25.6-37.1) 10/06/16 16:20 Assessment and Plan - Assessment and Plan (Free Text) Plan: - Continue supportive care as per medical and ICU team - No further surgical intervention - Patient is critically ill - Will follow
--- NOTE | 2016-10-07 10:28 | CP.CCUPN ---
CCU Subjective - Physician Review Events Since Last Encounter (Free Text): 10/07/16 10:25 Patient hypotensive requiring pressors with poor venous access, emergent Rt femoral central line placed under complete aseptic technique CCU Objective - Vital Signs / Intake & Output Vital Signs (Last 4 hours): Vital Signs Temp Pulse Resp BP Pulse Ox 10/07/16 09:00 90 19 84/47 L 98 10/07/16 08:56 90 86/53 L 10/07/16 08:00 98.9 F 92 H 19 86/53 L 99 10/07/16 06:29 96 H 17 120/73 100 Intake and Output (Last 8hrs): Intake & Output 10/06/16 10/07/16 10/07/16 22:59 06:59 14:59 Intake Total 1200 1205 1145 Output Total 110 350 25 Balance 5332 456 8281 Weight 190 lb Intake: IV 5412 091 3164 Intake, Piggyback 100 250 100 Oral 0 0 Output: Gastric Drainage 10 Gastric Amount 100 Stomach 100 Urine 100 250 25 Urethral (Taylor) 250 25 Other: # Bowel Movements 0 - Physical Exam Head: Positive for: Atraumatic, Normocephalic Conjunctiva: Positive for: Normal Ears: Positive for: Normal Mouth: Positive for: Moist Mucous Membranes Nose (External): Positive for: Atraumatic Nose (Internal): Positive for: Normal Inspection Neck: Positive for: Normal Range of Motion Respiratory/Chest: Positive for: Clear to Auscultation Cardiovascular: Positive for: Regular Rate and Rhythm Abdomen: Positive for: Other (dressing present) Upper Extremity: Positive for: Normal Inspection Lower Extremity: Positive for: Normal Inspection Neurological: Positive for: Other (on ventilator, sedated, no response to verbal stimuli) - Medications Active Medications: Active Medications Generic Name Dose Route Start Last Admin Trade Name Freq PRN Reason Stop Dose Admin Acetaminophen 650 mg 10/06/16 15:27 Tylenol 325mg Tab PO Q6 PRN Fever >100.4 F Aspirin 81 mg 10/07/16 09:00 10/07/16 08:54 Aspirin Chewable PO Not Given DAILY RUTHY Hydromorphone HCl 0.5 mg 10/06/16 15:27 Dilaudid IVP Q6 PRN Pain, severe (8-10) Lactated Ringer's 1,000 mls @ 100 mls/hr 10/06/16 19:45 10/07/16 01:11 Lactated Ringer's IV 100 mls/hr .Q10H RUTHY Administration Propofol 1,000 mg in 100 mls @ 2.449 mls/hr 10/06/16 23:45 10/07/16 08:55 Diprivan IV 10/07/16 23:40 25 mcg/kg/min .Q24H RUTHY 12.247 mls/hr Protocol Administration 5 MCG/KG/MIN Piperacillin Sod/Tazobactam 100 mls @ 100 mls/hr 10/07/16 04:00 10/07/16 09: 59 Sod 3.375 gm/ Sodium Chloride IVPB 100 mls/hr 0400,1000,1600,2200 RUTHY Administration Sodium Chloride 1,000 mls @ 999 mls/hr 10/07/16 09:15 10/07/16 09:58 Sodium Chloride 0.9% IV 10/08/16 09:06 999 mls/hr .Q1H1M RUTHY Administration Norepinephrine Bitartrate 4 mg 254 mls @ 9.52 mls/hr 10/07/16 10:30 / Dextrose IV .Q24H RUTHY Protocol 2.5 MCG/MIN Sodium Bicarbonate 100 meq/ 1,100 mls @ 100 mls/hr 10/07/16 10:19 Dextrose IV 10/08/16 10:20 .Q11H RUTHY Metoprolol Tartrate 25 mg 10/06/16 21:00 10/07/16 08:56 Lopressor PO Not Given Q12 RUTHY Morphine Sulfate 2 mg 10/06/16 15:27 Morphine IVP Q6 PRN Pain, moderate (4-7) Ondansetron HCl 4 mg 10/06/16 15:27 Zofran Inj IVP Q6 PRN Nausea/Vomiting Propofol 1,000 mg 10/06/16 20:00 10/06/16 23:29 Diprivan IV 1,000 mg .TITRATE RUTHY Administration - Patient Studies Lab Studies: Lab Studies 10/07/16 10/07/16 10/07/16 Range/Units 06:00 06:00 04:55 WBC 9.2 (4.8-10.8) K/uL RBC 3.98 L (4.40-5.90) Mil/uL Hgb 11.1 L (12.0-18.0) g/dL Hct 35.8 (35.0-51.0) % MCV 90.0 D (80.0-94.0) fl MCH 28.0 (27.0-31.0) pg MCHC 31.1 L (33.0-37.0) g/dL RDW 15.5 H (11.5-14.5) % Plt Count 262 (130-400) K/uL MPV 8.0 (7.2-11.7) fl Neut % (Auto) 75.5 H (50.0-75.0) % Lymph % (Auto) 8.0 L (20.0-40.0) % [place] % (Auto) 16.0 H (0.0-10.0) % Eos % (Auto) 0.2 (0.0-4.0) % Baso % (Auto) 0.3 (0.0-2.0) % Neut # 6.9 (1.8-7.0) K/uL Lymph # 0.7 L (1.0-4.3) K/uL [place] # 1.5 H (0.0-0.8) K/uL Eos # 0.0 (0.0-0.7) K/uL Baso # 0.0 (0.0-0.2) K/uL PT (9.8-13.1) Seconds INR (0.9-1.2) APTT (25.6-37.1) Seconds pCO2 34 L (35-45) mm/Hg pO2 137 H (80-100) mm/Hg HCO3 14.2 L (21-28) mmol/L ABG pH 7.20 L (7.35-7.45) ABG Total CO2 14.3 L (22-28) mmol/L ABG O2 Saturation 98.8 H (95-98) % ABG O2 Content 16.1 (15-23) ML/dL ABG Base Excess -13.7 L (-2.0-3.0) mmol/L ABG Hemoglobin 11.8 (11.7-17.4) g/dL ABG Carboxyhemoglobin 1.2 (0.5-1.5) % POC ABG HHb (Measured) 1.2 (0.0-5.0) % ABG Methemoglobin 1.7 (0.0-3.0) % ABG O2 Capacity 16.3 (16-24) mL/dL Quirino Test Yes A-a O2 Difference 534.0 mm/Hg Hgb O2 Saturation 95.8 (95.0-98.0) % Vent Mode Prvc/ac Mechanical Rate 14 FiO2 100.0 % Tidal Volume 550 Sodium 147 (132-148) mmol/l Potassium 3.9 (3.6-5.0) MMOL/L Chloride 112 H (98-107) mmol/L Carbon Dioxide 14 L (22-30) mmol/L Anion Gap 25 H (10-20) BUN 36 H (9-20) mg/dl Creatinine 3.0 H (0.8-1.5) mg/dL Est GFR ( Amer) 27 Est GFR (Non-Af Amer) 22 Random Glucose 91 (75-110) mg/dL Calcium 8.7 (8.4-10.2) mg/dL Total Bilirubin 1.7 H (0.2-1.3) mg/dl AST 628 H D (17-59) U/L ALT 871 H D (21-72) U/L Alkaline Phosphatase 109 (38-126) U/L Total Protein 6.7 (6.3-8.2) G/DL Albumin 3.1 L (3.5-5.0) g/dL Globulin 3.5 (2.2-3.9) gm/dL Albumin/Globulin Ratio 0.9 L (1.0-2.1) Urine Color (YELLOW) Urine Clarity (Clear) Urine pH (5.0-8.0) Ur Specific [place] (1.003-1.030) Urine Protein (NEGATIVE) mg/dL Urine Glucose (UA) (Normal) mg/dL Urine Ketones (NEGATIVE) mg/dL Urine Blood (NEGATIVE) Urine Nitrate (NEGATIVE) Urine Bilirubin (NEGATIVE) Urine Urobilinogen (0.2-1.0) mg/dL Ur Leukocyte Esterase (Negative) Frantz/uL Urine RBC (Auto) (0-3) /hpf Urine Microscopic WBC (0-5) /hpf Ur Squamous Epith Cells (0-5) /hpf Urine Bacteria (<OCC) Stool Occult Blood (NEGATIVE) Blood Type Blood Type Confirm Antibody Screen BBK History Checked 10/06/16 10/06/16 10/06/16 Range/Units 16:59 16:36 16:20 WBC (4.8-10.8) K/uL RBC (4.40-5.90) Mil/uL Hgb (12.0-18.0) g/dL Hct (35.0-51.0) % MCV (80.0-94.0) fl MCH (27.0-31.0) pg MCHC (33.0-37.0) g/dL RDW (11.5-14.5) % Plt Count (130-400) K/uL MPV (7.2-11.7) fl Neut % (Auto) (50.0-75.0) % Lymph % (Auto) (20.0-40.0) % [place] % (Auto) (0.0-10.0) % Eos % (Auto) (0.0-4.0) % Baso % (Auto) (0.0-2.0) % Neut # (1.8-7.0) K/uL Lymph # (1.0-4.3) K/uL [place] # (0.0-0.8) K/uL Eos # (0.0-0.7) K/uL Baso # (0.0-0.2) K/uL PT 18.5 H (9.8-13.1) Seconds INR 1.6 H (0.9-1.2) APTT 33.3 (25.6-37.1) Seconds pCO2 (35-45) mm/Hg pO2 (80-100) mm/Hg HCO3 (21-28) mmol/L ABG pH (7.35-7.45) ABG Total CO2 (22-28) mmol/L ABG O2 Saturation (95-98) % ABG O2 Content (15-23) ML/dL ABG Base Excess (-2.0-3.0) mmol/L ABG Hemoglobin (11.7-17.4) g/dL ABG Carboxyhemoglobin (0.5-1.5) % POC ABG HHb (Measured) (0.0-5.0) % ABG Methemoglobin (0.0-3.0) % ABG O2 Capacity (16-24) mL/dL Quirino Test A-a O2 Difference mm/Hg Hgb O2 Saturation (95.0-98.0) % Vent Mode Mechanical Rate FiO2 % Tidal Volume Sodium (132-148) mmol/l Potassium (3.6-5.0) MMOL/L Chloride (98-107) mmol/L Carbon Dioxide (22-30) mmol/L Anion Gap (10-20) BUN (9-20) mg/dl Creatinine (0.8-1.5) mg/dL Est GFR ( Amer) Est GFR (Non-Af Amer) Random Glucose (75-110) mg/dL Calcium (8.4-10.2) mg/dL Total Bilirubin (0.2-1.3) mg/dl AST (17-59) U/L ALT (21-72) U/L Alkaline Phosphatase (38-126) U/L Total Protein (6.3-8.2) G/DL Albumin (3.5-5.0) g/dL Globulin (2.2-3.9) gm/dL Albumin/Globulin Ratio (1.0-2.1) Urine Color Yellow (YELLOW) Urine Clarity Slighty-cloudy (Clear) Urine pH 5.0 (5.0-8.0) Ur Specific [place] 1.026 (1.003-1.030) Urine Protein 100 (NEGATIVE) mg/dL Urine Glucose (UA) 50 (Normal) mg/dL Urine Ketones Negative (NEGATIVE) mg/dL Urine Blood Moderate (NEGATIVE) Urine Nitrate Negative (NEGATIVE) Urine Bilirubin Negative (NEGATIVE) Urine Urobilinogen 0.2-1.0 (0.2-1.0) mg/dL Ur Leukocyte Esterase Neg (Negative) Frantz/uL Urine RBC (Auto) 1 (0-3) /hpf Urine Microscopic WBC 2 (0-5) /hpf Ur Squamous Epith Cells < 1 (0-5) /hpf Urine Bacteria Rare (<OCC) Stool Occult Blood (NEGATIVE) Blood Type Blood Type Confirm O POSITIVE Antibody Screen BBK History Checked 10/06/16 10/06/16 Range/Units 16:20 16:05 WBC (4.8-10.8) K/uL RBC (4.40-5.90) Mil/uL Hgb (12.0-18.0) g/dL Hct (35.0-51.0) % MCV (80.0-94.0) fl MCH (27.0-31.0) pg MCHC (33.0-37.0) g/dL RDW (11.5-14.5) % Plt Count (130-400) K/uL MPV (7.2-11.7) fl Neut % (Auto) (50.0-75.0) % Lymph % (Auto) (20.0-40.0) % [place] % (Auto) (0.0-10.0) % Eos % (Auto) (0.0-4.0) % Baso % (Auto) (0.0-2.0) % Neut # (1.8-7.0) K/uL Lymph # (1.0-4.3) K/uL [place] # (0.0-0.8) K/uL Eos # (0.0-0.7) K/uL Baso # (0.0-0.2) K/uL PT (9.8-13.1) Seconds INR (0.9-1.2) APTT (25.6-37.1) Seconds pCO2 (35-45) mm/Hg pO2 (80-100) mm/Hg HCO3 (21-28) mmol/L ABG pH (7.35-7.45) ABG Total CO2 (22-28) mmol/L ABG O2 Saturation (95-98) % ABG O2 Content (15-23) ML/dL ABG Base Excess (-2.0-3.0) mmol/L ABG Hemoglobin (11.7-17.4) g/dL ABG Carboxyhemoglobin (0.5-1.5) % POC ABG HHb (Measured) (0.0-5.0) % ABG Methemoglobin (0.0-3.0) % ABG O2 Capacity (16-24) mL/dL Quirino Test A-a O2 Difference mm/Hg Hgb O2 Saturation (95.0-98.0) % Vent Mode Mechanical Rate FiO2 % Tidal Volume Sodium (132-148) mmol/l Potassium (3.6-5.0) MMOL/L Chloride (98-107) mmol/L Carbon Dioxide (22-30) mmol/L Anion Gap (10-20) BUN (9-20) mg/dl Creatinine (0.8-1.5) mg/dL Est GFR ( Amer) Est GFR (Non-Af Amer) Random Glucose (75-110) mg/dL Calcium (8.4-10.2) mg/dL Total Bilirubin (0.2-1.3) mg/dl AST (17-59) U/L ALT (21-72) U/L Alkaline Phosphatase (38-126) U/L Total Protein (6.3-8.2) G/DL Albumin (3.5-5.0) g/dL Globulin (2.2-3.9) gm/dL Albumin/Globulin Ratio (1.0-2.1) Urine Color (YELLOW) Urine Clarity (Clear) Urine pH (5.0-8.0) Ur Specific [place] (1.003-1.030) Urine Protein (NEGATIVE) mg/dL Urine Glucose (UA) (Normal) mg/dL Urine Ketones (NEGATIVE) mg/dL Urine Blood (NEGATIVE) Urine Nitrate (NEGATIVE) Urine Bilirubin (NEGATIVE) Urine Urobilinogen (0.2-1.0) mg/dL Ur Leukocyte Esterase (Negative) Frantz/uL Urine RBC (Auto) (0-3) /hpf Urine Microscopic WBC (0-5) /hpf Ur Squamous Epith Cells (0-5) /hpf Urine Bacteria (<OCC) Stool Occult Blood Positive H (NEGATIVE) Blood Type O POSITIVE Blood Type Confirm Antibody Screen Negative BBK History Checked No verified bt Laboratory Results - last 24 hr 10/06/16 10/06/16 10/06/16 16:05 16:20 16:20 WBC RBC Hgb Hct MCV MCH MCHC RDW Plt Count MPV Neut % (Auto) Lymph % (Auto) [place] % (Auto) Eos % (Auto) Baso % (Auto) Neut # Lymph # [place] # Eos # Baso # PT 18.5 H INR 1.6 H APTT 33.3 pCO2 pO2 HCO3 ABG pH ABG Total CO2 ABG O2 Saturation ABG O2 Content ABG Base Excess ABG Hemoglobin ABG Carboxyhemoglobin POC ABG HHb (Measured) ABG Methemoglobin ABG O2 Capacity Quirino Test A-a O2 Difference Hgb O2 Saturation Vent Mode Mechanical Rate FiO2 Tidal Volume Sodium Potassium Chloride Carbon Dioxide Anion Gap BUN Creatinine Est GFR ( Amer) Est GFR (Non-Af Amer) Random Glucose Calcium Total Bilirubin AST ALT Alkaline Phosphatase Total Protein Albumin Globulin Albumin/Globulin Ratio Urine Color Urine Clarity Urine pH Ur Specific [place] Urine Protein Urine Glucose (UA) Urine Ketones Urine Blood Urine Nitrate Urine Bilirubin Urine Urobilinogen Ur Leukocyte Esterase Urine RBC (Auto) Urine Microscopic WBC Ur Squamous Epith Cells Urine Bacteria Stool Occult Blood Positive H Blood Type O POSITIVE Blood Type Confirm Antibody Screen Negative BBK History Checked No verified bt 10/06/16 10/06/16 10/07/16 16:36 16:59 04:55 WBC RBC Hgb Hct MCV MCH MCHC RDW Plt Count MPV Neut % (Auto) Lymph % (Auto) [place] % (Auto) Eos % (Auto) Baso % (Auto) Neut # Lymph # [place] # Eos # Baso # PT INR APTT pCO2 34 L pO2 137 H HCO3 14.2 L ABG pH 7.20 L ABG Total CO2 14.3 L ABG O2 Saturation 98.8 H ABG O2 Content 16.1 ABG Base Excess -13.7 L ABG Hemoglobin 11.8 ABG Carboxyhemoglobin 1.2 POC ABG HHb (Measured) 1.2 ABG Methemoglobin 1.7 ABG O2 Capacity 16.3 Quirino Test Yes A-a O2 Difference 534.0 Hgb O2 Saturation 95.8 Vent Mode Prvc/ac Mechanical Rate 14 FiO2 100.0 Tidal Volume 550 Sodium Potassium Chloride Carbon Dioxide Anion Gap BUN Creatinine Est GFR ( Amer) Est GFR (Non-Af Amer) Random Glucose Calcium Total Bilirubin AST ALT Alkaline Phosphatase Total Protein Albumin Globulin Albumin/Globulin Ratio Urine Color Yellow Urine Clarity Slighty-cloudy Urine pH 5.0 Ur Specific [place] 1.026 Urine Protein 100 Urine Glucose (UA) 50 Urine Ketones Negative Urine Blood Moderate Urine Nitrate Negative Urine Bilirubin Negative Urine Urobilinogen 0.2-1.0 Ur Leukocyte Esterase Neg Urine RBC (Auto) 1 Urine Microscopic WBC 2 Ur Squamous Epith Cells < 1 Urine Bacteria Rare Stool Occult Blood Blood Type Blood Type Confirm O POSITIVE Antibody Screen BBK History Checked 10/07/16 10/07/16 06:00 06:00 WBC 9.2 RBC 3.98 L Hgb 11.1 L Hct 35.8 MCV 90.0 D MCH 28.0 MCHC 31.1 L RDW 15.5 H Plt Count 262 MPV 8.0 Neut % (Auto) 75.5 H Lymph % (Auto) 8.0 L [place] % (Auto) 16.0 H Eos % (Auto) 0.2 Baso % (Auto) 0.3 Neut # 6.9 Lymph # 0.7 L [place] # 1.5 H Eos # 0.0 Baso # 0.0 PT INR APTT pCO2 pO2 HCO3 ABG pH ABG Total CO2 ABG O2 Saturation ABG O2 Content ABG Base Excess ABG Hemoglobin ABG Carboxyhemoglobin POC ABG HHb (Measured) ABG Methemoglobin ABG O2 Capacity Quirino Test A-a O2 Difference Hgb O2 Saturation Vent Mode Mechanical Rate FiO2 Tidal Volume Sodium 147 Potassium 3.9 Chloride 112 H Carbon Dioxide 14 L Anion Gap 25 H BUN 36 H Creatinine 3.0 H Est GFR ( Amer) 27 Est GFR (Non-Af Amer) 22 Random Glucose 91 Calcium 8.7 Total Bilirubin 1.7 H AST 628 H D ALT 871 H D Alkaline Phosphatase 109 Total Protein 6.7 Albumin 3.1 L Globulin 3.5 Albumin/Globulin Ratio 0.9 L Urine Color Urine Clarity Urine pH Ur Specific [place] Urine Protein Urine Glucose (UA) Urine Ketones Urine Blood Urine Nitrate Urine Bilirubin Urine Urobilinogen Ur Leukocyte Esterase Urine RBC (Auto) Urine Microscopic WBC Ur Squamous Epith Cells Urine Bacteria Stool Occult Blood Blood Type Blood Type Confirm Antibody Screen BBK History Checked
--- NOTE | 2016-10-07 10:45 | CARD ---
APPROVED REPORT EKG Measurement Heart [id number] <Conclusion> Sinus tachycardia Possible Left atrial enlargement Nonspecific ST and T wave abnormality Abnormal ECG
[2016-10-07] MEDS: Sodium Bicarbonate 8.4% 100 MEQ in Dextrose 5% In Water 1,000 ML IV SCH ×2 (12:14→23:14)
--- NOTE | 2016-10-07 13:41 | RAD ---
PROCEDURE: CHEST RADIOGRAPH, 1 VIEW HISTORY: post op COMPARISON: Comparison made with chest radiograph and CT scan abdomen pelvis obtained earlier same day. FINDINGS: LUNGS: In situ ETT, tip of which lies approximately 8.3 cm above daryl. In situ NGT, tip of which overlies left upper quadrant of the abdomen. Mild central pulmonary vascular congestion. Previously noted bilateral effusions and bibasilar atelectasis left larger than right poorly seen on this exam compared to high-resolution CT scan. PLEURA: No pneumothorax or pleural fluid seen. CARDIOVASCULAR: . Cardiomegaly. Sternotomy wires. OSSEOUS STRUCTURES: No significant abnormalities. VISUALIZED UPPER ABDOMEN: Normal. OTHER FINDINGS: None. IMPRESSION: ETT and NGT as above. Central pulmonary vascular congestion Mild central pulmonary vascular congestion. Previously noted bilateral effusions and bibasilar atelectasis left larger than right poorly seen on this exam compared to high-resolution CT scan.
--- NOTE | 2016-10-07 13:42 | RAD ---
HISTORY: intubated COMPARISON: No comparison made with chest radiograph 10/06/2016 at 2004 hours. Comparison also made with CT abdomen and pelvis 10/06/2016 at 1437 hours which image both lung bases. FINDINGS: LUNGS: In situ ETT, tip of which lies approximately 7.3 cm above daryl. NGT is present as well, the tip of which appears to lie left upper quadrant of the abdomen. . Bilateral effusions left slightly larger than right with bibasilar atelectasis. PLEURA: As above. No apparent pneumothorax CARDIOVASCULAR: Cardiomegaly. Sternotomy wires again noted OSSEOUS STRUCTURES: No significant abnormalities. VISUALIZED UPPER ABDOMEN: Normal. OTHER FINDINGS: None. IMPRESSION: Support lines and tubes as above. Bilateral effusions left larger than right with bibasilar atelectasis
[2016-10-07 15:43] LABS: BANDS 36 % (0-2); LYMPHOCYTE 11 % (20-50); METAMYELOCYTE 3 % (0-0); MONOCYTE 14 % (0-10); MYELOCYTE 3 % (0-0); NEUTROPHIL 32 % (42-75); NUCLEATED RED BLOOD CELL 11 % (0-0); REACTIVE LYMPHOCYTES 1 % (0-0); TOTAL CELLS COUNTED 100
[2016-10-07 15:44] LABS: PLATELET ESTIMATE NORMAL (NORMAL)
[2016-10-07 15:50] LABS: ANISOCYTOSIS SLIGHT; HYPOCHROMIC SLIGHT; LARGE PLATELETS PRESENT; POLYCHROMIC SLIGHT
--- NOTE | 2016-10-07 16:26 | CP.PCM.PN ---
Subjective - Date & Time of Evaluation Date of Evaluation: 10/07/16 Time of Evaluation: 07:30 - Subjective Subjective: Patient was seen and evaluated bedside. Critically ill ,intubated on MV 14/550/0 /100 % FIO2 , hypotensive , tachycardic , not febrile. On propol drip for sedation , not responding to verbal stimuli even when drip stopped. Started on Levophed drip for BP support and HCO3 drip Minimal urine output only 250 ml last 12 hours from Taylor catheter. NGT in place with 100 ml bloody output last 12 hours Dressing to abdomen clean and intact Objective - Vital Signs/Intake and Output Vital Signs (last 24 hours): Temp Pulse Resp BP Pulse Ox 99 F 102 H 27 H 105/54 L 98 10/07/16 12:00 10/07/16 15:00 10/07/16 15:00 10/07/16 15:00 10/07/16 15:00 Intake and Output: 10/07/16 10/07/16 06:59 18:59 Intake Total 1805 1299 Output Total 460 45 Balance 1345 1254 - Medications Medications: Current Medications Acetaminophen (Tylenol 325mg Tab) 650 mg PO Q6 PRN PRN Reason: Fever >100.4 F Aspirin (Aspirin Chewable) 81 mg PO DAILY [facility] Last Admin: 10/07/16 08:54 Dose: Not Given Hydromorphone HCl (Dilaudid) 0.5 mg IVP Q6 PRN PRN Reason: Pain, severe (8-10) Lactated Ringer's (Lactated Ringer's) 1,000 mls @ 100 mls/hr IV .Q10H RUTHY Last Admin: 10/07/16 01:11 Dose: 100 mls/hr Propofol (Diprivan) 1,000 mg in 100 mls @ 2.449 mls/hr IV .Q24H RUTHY; 5 MCG/KG/ MIN PRN Reason: Protocol Stop: 10/07/16 23:40 Last Admin: 10/07/16 08:55 Dose: 25 mcg/kg/min, 12.247 mls/hr Piperacillin Sod/Tazobactam (Sod 3.375 gm/ Sodium Chloride) 100 mls @ 100 mls/ hr IVPB 0400,1000,1600,2200 RUTHY Last Admin: 10/07/16 09:59 Dose: 100 mls/hr Sodium Chloride (Sodium Chloride 0.9%) 1,000 mls @ 999 mls/hr IV .Q1H1M RUTHY Stop: 10/08/16 09:06 Last Admin: 10/07/16 09:58 Dose: 999 mls/hr Norepinephrine Bitartrate 4 mg (/ Dextrose) 254 mls @ 9.52 mls/hr IV .Q24H RUTHY ; 2.5 MCG/MIN PRN Reason: Protocol Last Titration: 10/07/16 12:20 Dose: 10 mcg/min, 38.1 mls/hr Sodium Bicarbonate 100 meq/ (Dextrose) 1,100 mls @ 100 mls/hr IV .Q11H RUTHY Stop: 10/08/16 10:20 Last Admin: 10/07/16 12:14 Dose: 100 mls/hr Metoprolol Tartrate (Lopressor) 25 mg PO Q12 RUTHY Last Admin: 10/07/16 08:56 Dose: Not Given Morphine Sulfate (Morphine) 2 mg IVP Q6 PRN PRN Reason: Pain, moderate (4-7) Ondansetron HCl (Zofran Inj) 4 mg IVP Q6 PRN PRN Reason: Nausea/Vomiting Propofol (Diprivan) 1,000 mg IV .TITRATE RUTHY Last Admin: 10/06/16 23:29 Dose: 1,000 mg - Labs Labs: 10/07/16 06:00 10/07/16 06:00 PT 18.5 Seconds (9.8-13.1) H 10/06/16 16:20 INR 1.6 (0.9-1.2) H 10/06/16 16:20 APTT 33.3 Seconds (25.6-37.1) 10/06/16 16:20 - Constitutional Appears: Other (critically ill, intubated on MV , propofol drip) - Head Exam Head Exam: ATRAUMATIC, NORMOCEPHALIC - Eye Exam Eye Exam: PERRL - ENT Exam ENT Exam: Mucous Membranes Dry, Normal Exam - Neck Exam Neck Exam: Normal Inspection - Respiratory Exam Respiratory Exam: Clear to Ausculation Bilateral. absent: Rhonchi, Wheezes - Cardiovascular Exam Cardiovascular Exam: Tachycardia. absent: JVD - GI/Abdominal Exam GI & Abdominal Exam: Distended (mioldly distended ), Hypoactive Bowel Sounds Additional comments: midline surgical incision with dressing clean and intact - Rectal Exam Rectal Exam: Deferred - Extremities Exam Extremities Exam: Full ROM, Normal Capillary Refill, Normal Inspection. absent : Pedal Edema - Neurological Exam Additional comments: intubated , sedated - Skin Skin Exam: Dry, Warm Assessment and Plan - Assessment and Plan (Free Text) Assessment: 51 y/o male with PMH CABG 2 weeks ago, back pain, HTN, presented with severe sharp abdominal pain associated with nausea and emesis for two days. In ER, pt found to have intractable abdominal pain, disproportionate to exam. CT showed evidence of mesenteric ischemia/infarction. Seen by surgery in ER and taken to OR for emergent exploratory laparatomy with Dr. Sanchez that showed ischemic small bowel and right colon. No surgical intervention possible at this poit . Patient closed up and transferred to ICU for medical care. Currently intubated on MV , sedatexd on levophed dripo and bicarb drip No family members available. Patiebt is in critical condition. 1.Septic shock secondary to ischemic bowel Intuabted on MV , sedated on levophed drip, IVF, vent support and pain control Critically ill with poor prognosis 2. Ischemic bowel s/p exploratory laparatomy by general surgery showing ischemic small bowl and right colon No surgical intervention possible at this time Supportive care 3.Elevated transaminases likely secondary to mesenteric ischemia Continue to monitor NGT in place with bloody output 4.GOPI Due to sepsis continue to hydrate patient 5.CAD s/p CABG 2 weeks ago holding ASA due to GI bleed metopriolol on hold due to hypotension 6. DVT prophylaxis SCD
[2016-10-07] MEDS ORDERED: Norepinephrine 8 MG in Dextrose 5% In Water 500 ML IV ONE (17:16)
[2016-10-07] MEDS ORDERED: Propofol 10 mg/ml 1,000 MG/100 ML VIAL IV SCH (23:50)
[2016-10-08] MEDS: Lactated Ringer's 1,000 ML IV SCH (01:45)
[2016-10-08] MEDS: Piperacillin/Tazobact 3.375 GM in Sodium Chloride 0.9% 100 ML IVPB SCH ×2 (04:15→10:05)
[2016-10-08 05:11] LABS: ABG ALLEN TEST YES; ARTERIAL BLOOD GAS HEMOGLOBIN 10.6 g/dL (11.7-17.4); ARTERIAL BLOOD GAS O2 CAPACITY 14.5 mL/dL (16-24); ARTERIAL BLOOD GAS O2 CONTENT 13.9 ML/dL (15-23); ARTERIAL BLOOD GAS O2 SAT 95.8 % (95-98); ARTERIAL BLOOD GAS PCO2 28 mm/Hg (35-45); ARTERIAL BLOOD GAS PO2 76 mm/Hg (80-100); ARTERIAL BLOOD GAS TCO2 14.7 mmol/L (22-28)
[2016-10-08 05:19] LABS: HEMOGLOBIN 9.7 g/dL (12.0-18.0); MEAN CELL VOLUME 89.5 fl (80.0-94.0); MEAN CORPUSCULAR HEMOGLOBIN 27.8 pg (27.0-31.0); MEAN CORPUSCULAR HGB CONC 31.1 g/dL (33.0-37.0); RBC 3.5 Mil/uL (4.40-5.90); RED CELL DISTRIBUTION WIDTH 16.2 % (11.5-14.5); WHITE BLOOD COUNT 12.8 K/uL (4.8-10.8)
[2016-10-08 05:26] LABS: ALBUMIN 2.5 g/dL (3.5-5.0)
[2016-10-08 05:29] LABS: ALB/GLOB RATIO 0.8 (1.0-2.1); CALCIUM 7.4 mg/dL (8.4-10.2)
--- NOTE | 2016-10-08 08:20 | CP.PCM.PN ---
<Kyle Brunson - Last Filed: 10/08/16 08:17> Subjective - Date & Time of Evaluation Date of Evaluation: 10/08/16 Time of Evaluation: 08:17 - Subjective Subjective: Surgery Progress note. Dr. Sanchez Pt seen and examined at bedside. No response to verbal stimuli. On ventilator support. Pressor requirement NE @2.5mcg at the moment. Taylor and NGT in place. Objective - Vital Signs/Intake and Output Vital Signs (last 24 hours): Temp Pulse Resp BP Pulse Ox 98.1 F 96 H 24 113/69 100 10/08/16 08:00 10/08/16 08:00 10/08/16 08:00 10/08/16 08:00 10/08/16 08:00 Intake and Output: 10/08/16 10/08/16 06:59 18:59 Intake Total 3031 Output Total 245 Balance 2786 - Medications Medications: Current Medications Acetaminophen (Tylenol 325mg Tab) 650 mg PO Q6 PRN PRN Reason: Fever >100.4 F Hydromorphone HCl (Dilaudid) 0.5 mg IVP Q6 PRN PRN Reason: Pain, severe (8-10) Last Admin: 10/07/16 18:05 Dose: 0.5 mg Lactated Ringer's (Lactated Ringer's) 1,000 mls @ 100 mls/hr IV .Q10H RUTHY Last Admin: 10/08/16 01:45 Dose: 100 mls/hr Piperacillin Sod/Tazobactam (Sod 3.375 gm/ Sodium Chloride) 100 mls @ 100 mls/ hr IVPB 0400,1000,1600,2200 RUTHY Last Admin: 10/08/16 04:15 Dose: 100 mls/hr Sodium Chloride (Sodium Chloride 0.9%) 1,000 mls @ 999 mls/hr IV .Q1H1M RUTHY Stop: 10/08/16 09:06 Last Admin: 10/07/16 09:58 Dose: 999 mls/hr Norepinephrine Bitartrate 4 mg (/ Dextrose) 254 mls @ 9.52 mls/hr IV .Q24H RUTHY ; 2.5 MCG/MIN PRN Reason: Protocol Last Titration: 10/07/16 12:20 Dose: 10 mcg/min, 38.1 mls/hr Sodium Bicarbonate 100 meq/ (Dextrose) 1,100 mls @ 100 mls/hr IV .Q11H RUTHY Stop: 10/08/16 10:20 Last Admin: 10/07/16 23:14 Dose: 100 mls/hr Propofol (Diprivan) 1,000 mg in 100 mls @ 12.927 mls/hr IV .Q7H45M RUTHY; 25 MCG/ KG/MIN PRN Reason: Protocol Stop: 10/08/16 23:50 Last Titration: 10/08/16 06:40 Dose: 25 mcg/kg/min, 12.927 mls/hr Morphine Sulfate (Morphine) 2 mg IVP Q6 PRN PRN Reason: Pain, moderate (4-7) Ondansetron HCl (Zofran Inj) 4 mg IVP Q6 PRN PRN Reason: Nausea/Vomiting Propofol (Diprivan) 1,000 mg IV .TITRATE RUTHY Last Admin: 10/06/16 23:29 Dose: 1,000 mg - Labs Labs: 10/08/16 04:35 10/08/16 04:35 PT 18.5 Seconds (9.8-13.1) H 10/06/16 16:20 INR 1.6 (0.9-1.2) H 10/06/16 16:20 APTT 33.3 Seconds (25.6-37.1) 10/06/16 16:20 - Constitutional Appears: No Acute Distress - Head Exam Head Exam: ATRAUMATIC, NORMAL INSPECTION, NORMOCEPHALIC - Eye Exam Eye Exam: EOMI - ENT Exam Additional comments: NGT in place to suction. Dark red/black output 170cc/12 hrs. - Respiratory Exam Additional comments: Intubated and on vent. PRVC, FiO2 100%, Rate 14, TV 550 - GI/Abdominal Exam GI & Abdominal Exam: Distended Additional comments: Midline incision intact. Dressing is clean, dry and intact. - Extremities Exam Extremities Exam: Normal Inspection. absent: Pedal Edema - Neurological Exam Additional comments: No response to verbal stimuli Assessment and Plan - Assessment and Plan (Free Text) Assessment: 51yo M with Mesenteric Ischemia. S/p Ex lap with examination of entire bowel 7/ 8. POD 2 - Ischemic entire small bowel and right colon - Acute Kidney Injury. Creatinine increasing. UOP 75/12hrs - Hyperbilirubinemia noted - Leukocytosis - poor prognosis - Continue to medically optimize - Strict I&Os - NGT to suction - Continue ABX - No further surgical intervention further recs as per Dr. Daniel Brunson PGY1 <Calixto Sanchez - Last Filed: 10/08/16 11:43> Subjective - Subjective Subjective: Patient was seen and examined at the bedside. Agree with resident's note above Objective - Vital Signs/Intake and Output Vital Signs (last 24 hours): Temp Pulse Resp BP Pulse Ox 98.1 F 86 24 126/70 100 10/08/16 08:00 10/08/16 11:00 10/08/16 11:00 10/08/16 11:00 10/08/16 11:00 Intake and Output: 10/08/16 10/08/16 06:59 18:59 Intake Total 3031 0 Output Total 245 Balance 2786 0 - Medications Medications: Current Medications Acetaminophen (Tylenol 325mg Tab) 650 mg PO Q6 PRN PRN Reason: Fever >100.4 F Famotidine (Pepcid) 40 mg IVP DAILY [facility] Heparin Sodium (Porcine) (Heparin) 5,000 units SC Q8 RUTHY PRN Reason: Protocol Hydromorphone HCl (Dilaudid) 0.5 mg IVP Q6 PRN PRN Reason: Pain, severe (8-10) Last Admin: 10/07/16 18:05 Dose: 0.5 mg Sodium Bicarbonate 150 meq/ (Dextrose) 1,150 mls @ 200 mls/hr IV .Q5H45M [facility] Stop: 10/09/16 11:00 Fentanyl Citrate 2,500 mcg/ (Dextrose) 250 mls @ 0 mls/hr IV .Q0M RUTHY; Per Protocol PRN Reason: Protocol Metronidazole (Flagyl 500mg/100ml Ns) 100 mls @ 100 mls/hr IVPB Q8 [facility] Cefepime HCl 2 gm/ Sodium (Chloride) 100 mls @ 100 mls/hr IVPB DAILY [facility] Last Admin: 10/08/16 11:24 Dose: 100 mls/hr Morphine Sulfate (Morphine) 2 mg IVP Q6 PRN PRN Reason: Pain, moderate (4-7) Ondansetron HCl (Zofran Inj) 4 mg IVP Q6 PRN PRN Reason: Nausea/Vomiting - Labs Labs: 10/08/16 04:35 10/08/16 04:35 PT 18.5 Seconds (9.8-13.1) H 10/06/16 16:20 INR 1.6 (0.9-1.2) H 10/06/16 16:20 APTT 33.3 Seconds (25.6-37.1) 10/06/16 16:20
[2016-10-08] MEDS ORDERED: Pneumococcal 23-Valent Vaccine IM ONE (09:10)
[2016-10-08] MEDS ORDERED: Cefepime 2 GM in Sodium Chloride 0.9% 100 ML IVPB SCH (11:15)
--- NOTE | 2016-10-08 11:19 | CP.PCM.PN ---
Subjective - Date & Time of Evaluation Date of Evaluation: 10/08/16 Time of Evaluation: 11:00 - Subjective Subjective: Low grade fever Intubated on Mech vent some dark blood on NGT Oliguric On pressors Sedated Grimaces with painful stimuli Objective - Vital Signs/Intake and Output Vital Signs (last 24 hours): Temp Pulse Resp BP Pulse Ox 98.1 F 96 H 24 125/67 97 10/08/16 08:00 10/08/16 10:00 10/08/16 10:00 10/08/16 10:00 10/08/16 10:00 Intake and Output: 10/08/16 10/08/16 06:59 18:59 Intake Total 3031 0 Output Total 245 Balance 2786 0 - Medications Medications: Current Medications Acetaminophen (Tylenol 325mg Tab) 650 mg PO Q6 PRN PRN Reason: Fever >100.4 F Famotidine (Pepcid) 40 mg IVP DAILY [facility] Heparin Sodium (Porcine) (Heparin) 5,000 units SC Q8 RUTHY PRN Reason: Protocol Hydromorphone HCl (Dilaudid) 0.5 mg IVP Q6 PRN PRN Reason: Pain, severe (8-10) Last Admin: 10/07/16 18:05 Dose: 0.5 mg Sodium Bicarbonate 150 meq/ (Dextrose) 1,150 mls @ 200 mls/hr IV .Q5H45M [facility] Stop: 10/09/16 11:00 Fentanyl Citrate 2,500 mcg/ (Dextrose) 250 mls @ 0 mls/hr IV .Q0M RUTHY; Per Protocol PRN Reason: Protocol Metronidazole (Flagyl 500mg/100ml Ns) 100 mls @ 100 mls/hr IVPB Q8 [facility] Cefepime HCl 2 gm/ Sodium (Chloride) 100 mls @ 100 mls/hr IVPB DAILY [facility] Morphine Sulfate (Morphine) 2 mg IVP Q6 PRN PRN Reason: Pain, moderate (4-7) Ondansetron HCl (Zofran Inj) 4 mg IVP Q6 PRN PRN Reason: Nausea/Vomiting - Labs Labs: 10/08/16 04:35 10/08/16 04:35 PT 18.5 Seconds (9.8-13.1) H 10/06/16 16:20 INR 1.6 (0.9-1.2) H 10/06/16 16:20 APTT 33.3 Seconds (25.6-37.1) 10/06/16 16:20 - Constitutional Appears: Other (Intubated on Mech vent) - Head Exam Head Exam: NORMAL INSPECTION, NORMOCEPHALIC - Eye Exam Eye Exam: Normal appearance, PERRL - ENT Exam ENT Exam: Mucous Membranes Dry, Normal External Ear Exam - Respiratory Exam Respiratory Exam: Rales, Rhonchi Additional comments: Intubated on Vent - Cardiovascular Exam Cardiovascular Exam: REGULAR RHYTHM, +S1, +S2 - GI/Abdominal Exam GI & Abdominal Exam: Distended, Soft, Tenderness - Extremities Exam Extremities Exam: Pedal Edema - Neurological Exam Additional comments: Sedated, Intubated responds to painful stimuli - grimaces - Skin Skin Exam: Dry, Normal Color Assessment and Plan (1) Acute diffuse ischemia of intestine Status: Acute (2) Septic shock Status: Acute (3) Acute renal failure Status: Acute (4) Shock liver Status: Acute (5) CAD (coronary artery disease) Status: Acute - Assessment and Plan (Free Text) Assessment: 51 y/o male with PMH CABG 2 weeks ago, back pain, HTN, presented with severe sharp abdominal pain associated with nausea and emesis for two days. In ER, pt found to have intractable abdominal pain, disproportionate to exam. CT showed evidence of mesenteric ischemia/infarction. Seen by surgery in ER and taken to OR for emergent exploratory laparatomy by Dr. Sanchez that showed ischemic small bowel and right colon. No surgical intervention could be done, the patient wasaclosed up and transferred to ICU for medical care. Currently intubated on MV , sedatexd on levophed dripo and bicarb drip Poor Prognosis. All his family memebers are in [place] at present. 1.Septic shock secondary to ischemic bowel Intubated on MV , sedated on levophed drip, IVF, vent support and pain control Critically ill with very poor prognosis cont Cefepime and IV Flagyl 2. Ischemic bowel s/p exploratory laparatomy by general surgery showing ischemic small bowl and right colon No surgical intervention possible at this time Supportive care GI consult 3.Elevated transaminases likely Shock Liver/decrease perfusion likely secondary to mesenteric ischemia Continue to monitor NGT in place with bloody output 4. GOPI likely due to decrease perfusion continue to hydrate patient Nephrology consult - Dr Taylro- pt may likely need to be dialyzed 5. CAD s/p CABG 2 weeks ago Cardio consult : Dr Putnam 6. DVT prophylaxis SCD Heparin
--- NOTE | 2016-10-08 11:41 | CP.CCUPN ---
CCU Subjective - Physician Review Subjective (Free Text): Interim events reviewed: Sedated on Propofol drip, started for tachypnea and asynchrony on the Vent, remains on 100% fiO2 , breathing 26 on AC 14, minute vent= 15.2, SPO2 95%. T max 99.9F overnight. Off Levophed at 655AM. On LR at 100 ml/hr and alkalinized fluids at 100ml/hr. Urine output only 75ml last 12H. Abdomen appears distended and firm, no BMs yet. Was tachycardic overnight up to 140s in sinus, now HR down to 95/ min. 24H I/O is +5 L. ROS: unobtainable, sedated patient. PMSFH: all nursing and physician notes reviewed, no other pertinent history relevant to current problems. CCU Objective - Vital Signs / Intake & Output Vital Signs (Last 4 hours): Vital Signs Temp Pulse Resp BP Pulse Ox 10/08/16 11:00 86 24 126/70 100 10/08/16 10:00 96 H 24 125/67 97 10/08/16 09:00 95 H 24 121/65 98 10/08/16 08:00 98.1 F 96 H 24 113/69 100 Intake and Output (Last 8hrs): Intake & Output 10/07/16 10/08/16 10/08/16 22:59 06:59 14:59 Intake Total 2200 2031 0 Output Total 180 245 Balance 2020 1786 0 Intake: IV 2100 1831 0 Intake, Piggyback 100 200 Output: Gastric Amount 180 170 Stomach 180 170 Urine 0 75 Urethral (Taylor) 0 75 Other: # Bowel Movements 0 - Physical Exam Pupils: Positive for: PERRL Conjunctiva: Positive for: Normal. Negative for: Icteric Mouth: Positive for: Moist Mucous Membranes Neck: Positive for: Trachea Midline. Negative for: JVD Respiratory/Chest: Positive for: Decreased Breath Sounds, Rhonchi Cardiovascular: Positive for: Regular Rate and Rhythm, Tachycardic. Negative for: Murmurs, Rub Abdomen: Positive for: Distention, Other (Abd dressing intact and dry, no BS heard. ) Lower Extremity: Positive for: Edema, NORMAL PULSES, Cyanosis Neurological: Positive for: Other (on ventilator, sedated, no response to verbal stimuli) Skin: Positive for: Warm. Negative for: Rashes - Medications Active Medications: Active Medications Generic Name Dose Route Start Last Admin Trade Name Freq PRN Reason Stop Dose Admin Acetaminophen 650 mg 10/06/16 15:27 Tylenol 325mg Tab PO Q6 PRN Fever >100.4 F Famotidine 40 mg 10/08/16 11:00 Pepcid IVP DAILY [facility] Heparin Sodium (Porcine) 5,000 units 10/08/16 11:00 Heparin SC Q8 [facility] Protocol Hydromorphone HCl 0.5 mg 10/06/16 15:27 10/07/16 18:05 Dilaudid IVP 0.5 mg Q6 PRN Administration Pain, severe (8-10) Sodium Bicarbonate 150 meq/ 1,150 mls @ 200 mls/hr 10/08/16 11:00 Dextrose IV 10/09/16 11:00 .Q5H45M RUTHY Fentanyl Citrate 2,500 mcg/ 250 mls @ 0 mls/hr 10/08/16 11:15 Dextrose IV .Q0M [facility] Protocol Per Protocol Metronidazole 100 mls @ 100 mls/hr 10/08/16 11:15 Flagyl 500mg/100ml Ns IVPB Q8 RUTHY Cefepime HCl 2 gm/ Sodium 100 mls @ 100 mls/hr 10/08/16 11:15 10/08/16 11:24 Chloride IVPB 100 mls/hr DAILY [facility] Administration Morphine Sulfate 2 mg 10/08/16 09:00 Morphine IVP Q6 PRN Pain, moderate (4-7) Ondansetron HCl 4 mg 10/06/16 15:27 Zofran Inj IVP Q6 PRN Nausea/Vomiting - Patient Studies Lab Studies: Lab Studies 10/08/16 10/08/16 10/08/16 Range/Units 05:05 04:35 04:35 WBC 12.8 H (4.8-10.8) K/uL RBC 3.50 L (4.40-5.90) Mil/uL Hgb 9.7 L (12.0-18.0) g/dL Hct 31.4 L (35.0-51.0) % MCV 89.5 (80.0-94.0) fl MCH 27.8 (27.0-31.0) pg MCHC 31.1 L (33.0-37.0) g/dL RDW 16.2 H (11.5-14.5) % Plt Count 151 D (130-400) K/uL Neutrophils % (Manual) (42-75) % Band Neutrophils % (0-2) % Lymphocytes % (Manual) (20-50) % Reactive Lymphs % (0-0) % Monocytes % (Manual) (0-10) % Metamyelocytes % (0-0) % Myelocytes % (0-0) % Nucleated RBC % (0-0) % Platelet Estimate (NORMAL) Large Platelets Polychromasia Hypochromasia (manual) Anisocytosis (manual) pCO2 28 L (35-45) mm/Hg pO2 76 L (80-100) mm/Hg HCO3 16.0 L (21-28) mmol/L ABG pH 7.30 L (7.35-7.45) ABG Total CO2 14.7 L (22-28) mmol/L ABG O2 Saturation 95.8 (95-98) % ABG O2 Content 13.9 L (15-23) ML/dL ABG Base Excess -11.3 L (-2.0-3.0) mmol/L ABG Hemoglobin 10.6 L (11.7-17.4) g/dL ABG Carboxyhemoglobin 1.2 (0.5-1.5) % POC ABG HHb (Measured) 4.1 (0.0-5.0) % ABG Methemoglobin 1.9 (0.0-3.0) % ABG O2 Capacity 14.5 L (16-24) mL/dL Quirino Test Yes A-a O2 Difference 602.0 mm/Hg Hgb O2 Saturation 92.9 L (95.0-98.0) % Vent Mode A/c Mechanical Rate 14 FiO2 100.0 % Tidal Volume 550 Sodium 139 (132-148) mmol/l Potassium 4.7 (3.6-5.0) MMOL/L Chloride 103 (98-107) mmol/L Carbon Dioxide 17 L (22-30) mmol/L Anion Gap 24 H (10-20) BUN 55 H (9-20) mg/dl Creatinine 5.3 H (0.8-1.5) mg/dL Est GFR ( Amer) 14 Est GFR (Non-Af Amer) 12 Random Glucose 169 H (75-110) mg/dL Calcium 7.4 L (8.4-10.2) mg/dL Total Bilirubin 2.9 H (0.2-1.3) mg/dl AST 1061 H (17-59) U/L ALT 726 H (21-72) U/L Alkaline Phosphatase 94 (38-126) U/L Total Protein 5.7 L (6.3-8.2) G/DL Albumin 2.5 L (3.5-5.0) g/dL Globulin 3.2 (2.2-3.9) gm/dL Albumin/Globulin Ratio 0.8 L (1.0-2.1) /12/16 Range/Units 06:00 WBC (4.8-10.8) K/uL RBC (4.40-5.90) Mil/uL Hgb (12.0-18.0) g/dL Hct (35.0-51.0) % MCV (80.0-94.0) fl MCH (27.0-31.0) pg MCHC (33.0-37.0) g/dL RDW (11.5-14.5) % Plt Count (130-400) K/uL Neutrophils % (Manual) 32 L (42-75) % Band Neutrophils % 36 H* (0-2) % Lymphocytes % (Manual) 11 L (20-50) % Reactive Lymphs % 1 H (0-0) % Monocytes % (Manual) 14 H (0-10) % Metamyelocytes % 3 H (0-0) % Myelocytes % 3 H (0-0) % Nucleated RBC % 11 H (0-0) % Platelet Estimate Normal (NORMAL) Large Platelets Present Polychromasia Slight Hypochromasia (manual) Slight Anisocytosis (manual) Slight pCO2 (35-45) mm/Hg pO2 (80-100) mm/Hg HCO3 (21-28) mmol/L ABG pH (7.35-7.45) ABG Total CO2 (22-28) mmol/L ABG O2 Saturation (95-98) % ABG O2 Content (15-23) ML/dL ABG Base Excess (-2.0-3.0) mmol/L ABG Hemoglobin (11.7-17.4) g/dL ABG Carboxyhemoglobin (0.5-1.5) % POC ABG HHb (Measured) (0.0-5.0) % ABG Methemoglobin (0.0-3.0) % ABG O2 Capacity (16-24) mL/dL Quirino Test A-a O2 Difference mm/Hg Hgb O2 Saturation (95.0-98.0) % Vent Mode Mechanical Rate FiO2 % Tidal Volume Sodium (132-148) mmol/l Potassium (3.6-5.0) MMOL/L Chloride (98-107) mmol/L Carbon Dioxide (22-30) mmol/L Anion Gap (10-20) BUN (9-20) mg/dl Creatinine (0.8-1.5) mg/dL Est GFR ( Amer) Est GFR (Non-Af Amer) Random Glucose (75-110) mg/dL Calcium (8.4-10.2) mg/dL Total Bilirubin (0.2-1.3) mg/dl AST (17-59) U/L ALT (21-72) U/L Alkaline Phosphatase (38-126) U/L Total Protein (6.3-8.2) G/DL Albumin (3.5-5.0) g/dL Globulin (2.2-3.9) gm/dL Albumin/Globulin Ratio (1.0-2.1) Laboratory Results - last 24 hr 10/07/16 10/08/16 10/08/16 06:00 04:35 04:35 WBC 12.8 H RBC 3.50 L Hgb 9.7 L Hct 31.4 L MCV 89.5 MCH 27.8 MCHC 31.1 L RDW 16.2 H Plt Count 151 D Neutrophils % (Manual) 32 L Band Neutrophils % 36 H* Lymphocytes % (Manual) 11 L Reactive Lymphs % 1 H Monocytes % (Manual) 14 H Metamyelocytes % 3 H Myelocytes % 3 H Nucleated RBC % 11 H Platelet Estimate Normal Large Platelets Present Polychromasia Slight Hypochromasia (manual) Slight Anisocytosis (manual) Slight pCO2 pO2 HCO3 ABG pH ABG Total CO2 ABG O2 Saturation ABG O2 Content ABG Base Excess ABG Hemoglobin ABG Carboxyhemoglobin POC ABG HHb (Measured) ABG Methemoglobin ABG O2 Capacity Quirino Test A-a O2 Difference Hgb O2 Saturation Vent Mode Mechanical Rate FiO2 Tidal Volume Sodium 139 Potassium 4.7 Chloride 103 Carbon Dioxide 17 L Anion Gap 24 H BUN 55 H Creatinine 5.3 H Est GFR ( Amer) 14 Est GFR (Non-Af Amer) 12 Random Glucose 169 H Calcium 7.4 L Total Bilirubin 2.9 H AST 1061 H ALT 726 H Alkaline Phosphatase 94 Total Protein 5.7 L Albumin 2.5 L Globulin 3.2 Albumin/Globulin Ratio 0.8 L 10/08/16 05:05 WBC RBC Hgb Hct MCV MCH MCHC RDW Plt Count Neutrophils % (Manual) Band Neutrophils % Lymphocytes % (Manual) Reactive Lymphs % Monocytes % (Manual) Metamyelocytes % Myelocytes % Nucleated RBC % Platelet Estimate Large Platelets Polychromasia Hypochromasia (manual) Anisocytosis (manual) pCO2 28 L pO2 76 L HCO3 16.0 L ABG pH 7.30 L ABG Total CO2 14.7 L ABG O2 Saturation 95.8 ABG O2 Content 13.9 L ABG Base Excess -11.3 L ABG Hemoglobin 10.6 L ABG Carboxyhemoglobin 1.2 POC ABG HHb (Measured) 4.1 ABG Methemoglobin 1.9 ABG O2 Capacity 14.5 L Quirino Test Yes A-a O2 Difference 602.0 Hgb O2 Saturation 92.9 L Vent Mode A/c Mechanical Rate 14 FiO2 100.0 Tidal Volume 550 Sodium Potassium Chloride Carbon Dioxide Anion Gap BUN Creatinine Est GFR ( Amer) Est GFR (Non-Af Amer) Random Glucose Calcium Total Bilirubin AST ALT Alkaline Phosphatase Total Protein Albumin Globulin Albumin/Globulin Ratio Radiology Interpretations (Free Text): (my interp): CXR: ETT position OK above daryl, bibasilar interstitial changes. EKG/Cardiology Studies: Cardiology / EKG Studies 10/07/16 23:55 EKG [ELECTROCARDIOGRAM] Stat Comment: Mode Of Transportation: PORTABLE Reason For Exam: Heart rate 148 BPM PRE OP:: N Does Patient Have a Pacemaker?: No Review of Systems - Review of Systems Systems not reviewed;Unavailable: Other (sedated on Propofol.) Critical Care Progress Note - Ventilator Checklist Head of Bed 30 Degrees: Yes Daily Sedation Vacation: No (on 100% oxygen) Daily Assessment of Readiness to Wean: No (on 100% oxygen) Daily Spontaneous Breathing Trial: No (on 100% oxygen) PUD Prophalyxis: Yes DVT Prophylaxis: Yes Oral Care with Chlorhexidine Gluconate {CHG}: Yes - Extremities/Vascular Does the Patient have a Central Venous Catheter?: Yes Insertion Site: Femoral Vein (R femoral TLC) Does the Patient need a Central Venous Catheter?: Yes Does the Patient have a Taylor Catheter?: Yes Does the Patient need a Taylor Catheter?: Yes Catheter Insertion Criteria: Need for accurate measurement of output in critically ill patient - Prophylaxis GI Prophylaxis GI: Pepsid - Prophylaxis DVT Prophylaxis DVT: Heparin SQ - Nutrition Nutrition: NPO Assessment/Plan - Assessment and Plan (Free Text) Assessment: Major problems: 1. s/p POD 3 ExLap for diffuse Ischemic Bowel disease 2. Multi-Organ Failure Syndrome affecting Pulm, hepatic, Renal systems. 3. Acute hypoxemic Resp failure 2 bilat effusions 4. Acute Renal Failure 2 ATN 5. Ischemic / Shock Liver 6. s/p CABG2 weeks ago Plan: PLAN: 1. Unknown medical history if patient had AMI leading to need for CABG, and subsequent embolic /hypoperfusion leading to mesenteric ischemia. Would obtain Cardio, GI evals as well, and discuss with Surg team regarding consideration for systemic AC as only course of action left for now besides ongoing supportive interventions to slow further organ system failure. 2. Broaden empiric abx coverage with Cefepime and Flagyl. Significant bandemia noted. 3. Increase IVFs, and or fluid challenges for oliguria. 4. Add PEEP. Switch Propofol to Fentanyl drip for this post-op patient; if additional anxiolysis needed, will start Precedex. 5. Nephrology eval for need for any early [employer]. Watch K levels, on alkalinized fluids. 6. Overall prognosis appears poor, no apparent immediate family available. Time spent with this patient did not overlap with any other provider's medical or critical care time. Additionally the code selected for the services rendered in this note includes the time spent: talking to the patients family, associated physicians and reviewing hospital data/results not listed here which extended to a total of 55 minutes.
[2016-10-08 12:02] LABS: VENOUS BLOOD GAS BASE EXCESS -10.7 mmol/L (0.0-2.0); VENOUS BLOOD GAS PCO2 29 mmHg (40-60); VENOUS BLOOD GAS PO2 35 mm/Hg (30-55)
[2016-10-08] MEDS: Fentanyl Citrate 2,500 MCG in Dextrose 5% In Water 200 ML IV SCH (12:10)
[2016-10-08 12:12] LABS: ABG ALLEN TEST YES; ARTERIAL BLOOD GAS HCO3 19.3 mmol/L (21-28); ARTERIAL BLOOD GAS O2 SAT 98.6 % (95-98); ARTERIAL BLOOD GAS PCO2 30 mm/Hg (35-45); ARTERIAL BLOOD GAS PH 7.36 (7.35-7.45); ARTERIAL BLOOD GAS PO2 118 mm/Hg (80-100); ARTERIAL BLOOD GAS TCO2 17.8 mmol/L (22-28)
[2016-10-08] MEDS: metroNIDAZOLE 500mg/100ml NS 100 ML IVPB SCH ×2 (12:15→16:35)
[2016-10-08] MEDS: Sodium Bicarbonate 8.4% 150 MEQ in Dextrose 5% In Water 1,000 ML IV SCH ×2 (12:18→18:25)
--- NOTE | 2016-10-08 12:23 | CP.PCM.CON ---
History of Present Illness - History of Present Illness History of Present Illness: full consult to hua this patient who is 51 years of age I was called to see him because of abnormal kidney function was rising BUN/c Patient intubated and not responding at the present and the history was taken from the chart Patient was admitted with severe abdominal pain and require emergency surgery and the finding was mesenteric ischemia M and gangrene as noted on require to close abdomen because of the gangrene Patient apparently has CABG , recently social history and the rest of the medical historo as noted Review of Systems - Review of Systems Review of Systems: intubated - Constitutional Constitutional: As Per HPI - EENT Eyes: As Per HPI Nose/Mouth/Throat: As Per HPI - Cardiovascular Cardiovascular: absent: Chest Pain, Edema - Respiratory Respiratory: As Per HPI. absent: Cough - Gastrointestinal Gastrointestinal: Abdominal Pain - Genitourinary Genitourinary: As Per HPI Past Patient History - Past Medical History & Family History Past Medical History?: Yes - Past Social History Smoking Status: Current Some Days Smoker - CARDIAC Hx Cardiac Disorders: Yes Hx Hypertension: Yes Other/Comment: CABG 2 wks ago - PULMONARY Hx Respiratory Disorders: No Other/Comment: smoker - NEUROLOGICAL Hx Neurological Disorder: No Other/Comment: headaches - HEENT Hx HEENT Problems: No - RENAL Hx Chronic Kidney Disease: No - ENDOCRINE/METABOLIC Hx Endocrine Disorders: No - HEMATOLOGICAL/ONCOLOGICAL Hx Blood Disorders: No Hx AIDS: No Hx Human Immunodeficiency Virus (HIV): No - INTEGUMENTARY Hx Dermatological Problems: No - MUSCULOSKELETAL/RHEUMATOLOGICAL Hx Musculoskeletal Disorders: No Hx Falls: No - GASTROINTESTINAL Hx Gastrointestinal Disorders: No Other/Comment: kidney stones - GENITOURINARY/GYNECOLOGICAL Hx Genitourinary Disorders: No - PSYCHIATRIC Hx Psychophysiologic Disorder: No Hx Substance Use: No - SURGICAL HISTORY Hx Surgeries: Yes (cabg 2 wks ago) Hx Coronary Artery Bypass Graft: Yes (about 2 weeks ago) - ANESTHESIA Hx Anesthesia: Yes Hx Anesthesia Reactions: No Hx Malignant Hyperthermia: No Meds Allergies/Adverse Reactions: Allergies Allergy/AdvReac Type Severity Reaction Status Date / Time No Known Allergies Allergy Verified 10/06/16 11:47 - Medications Medications: Current Medications Acetaminophen (Tylenol 325mg Tab) 650 mg PO Q6 PRN PRN Reason: Fever >100.4 F Famotidine (Pepcid) 40 mg IVP DAILY [facility] Last Admin: 10/08/16 12:17 Dose: 40 mg Heparin Sodium (Porcine) (Heparin) 5,000 units SC Q8 [facility] PRN Reason: Protocol Last Admin: 10/08/16 12:16 Dose: 5,000 units Hydromorphone HCl (Dilaudid) 0.5 mg IVP Q6 PRN PRN Reason: Pain, severe (8-10) Last Admin: 10/07/16 18:05 Dose: 0.5 mg Sodium Bicarbonate 150 meq/ (Dextrose) 1,150 mls @ 200 mls/hr IV .Q5H45M [facility] Stop: 10/09/16 11:00 Last Admin: 10/08/16 12:18 Dose: 200 mls/hr Fentanyl Citrate 2,500 mcg/ (Dextrose) 250 mls @ 0 mls/hr IV .Q0M [facility]; Per Protocol PRN Reason: Protocol Last Admin: 10/08/16 12:10 Dose: 1 mcg/kg/hr, 8.61 mls/hr Metronidazole (Flagyl 500mg/100ml Ns) 100 mls @ 100 mls/hr IVPB Q8 [facility] Last Admin: 10/08/16 12:15 Dose: 100 mls/hr Cefepime HCl 2 gm/ Sodium (Chloride) 100 mls @ 100 mls/hr IVPB DAILY [facility] Last Admin: 10/08/16 11:24 Dose: 100 mls/hr Morphine Sulfate (Morphine) 2 mg IVP Q6 PRN PRN Reason: Pain, moderate (4-7) Ondansetron HCl (Zofran Inj) 4 mg IVP Q6 PRN PRN Reason: Nausea/Vomiting Physical Exam - ENT Exam ENT Exam: Mucous Membranes Moist - Respiratory Exam Respiratory Exam: absent: Chest Wall Tenderness - Cardiovascular Exam Cardiovascular Exam: absent: JVD, Rubs - GI/Abdominal Exam GI & Abdominal Exam: Distended - Back Exam Back exam: absent: CVA tenderness (L), CVA tenderness (R) - Neurological Exam Additional comments: not responsive Results - Vital Signs Recent Vital Signs: Last Vital Signs Temp 98.1 F 10/08/16 08:00 Pulse 86 10/08/16 11:00 Resp 24 10/08/16 11:00 BP 126/70 10/08/16 11:00 Pulse Ox 100 10/08/16 11:00 - Labs Result Diagrams: 10/08/16 04:35 10/08/16 04:35 Labs: Laboratory Results - last 24 hr 10/07/16 10/08/16 10/08/16 06:00 04:35 04:35 WBC 12.8 H RBC 3.50 L Hgb 9.7 L Hct 31.4 L MCV 89.5 MCH 27.8 MCHC 31.1 L RDW 16.2 H Plt Count 151 D Neutrophils % (Manual) 32 L Band Neutrophils % 36 H* Lymphocytes % (Manual) 11 L Reactive Lymphs % 1 H Monocytes % (Manual) 14 H Metamyelocytes % 3 H Myelocytes % 3 H Nucleated RBC % 11 H Platelet Estimate Normal Large Platelets Present Polychromasia Slight Hypochromasia (manual) Slight Anisocytosis (manual) Slight pCO2 pO2 HCO3 ABG pH ABG Total CO2 ABG O2 Saturation ABG O2 Content ABG Base Excess ABG Hemoglobin ABG Carboxyhemoglobin POC ABG HHb (Measured) ABG Methemoglobin ABG O2 Capacity Quirino Test ABG Potassium VBG pH VBG pCO2 VBG HCO3 VBG Total CO2 VBG O2 Sat (Calc) VBG Base Excess VBG Potassium A-a O2 Difference Hgb O2 Saturation Glucose Lactate Vent Mode Mechanical Rate FiO2 Tidal Volume PEEP Crit Value Called To Crit Value Called By Crit Value Read Back Blood Gas Notified Time Sodium 139 Potassium 4.7 Chloride 103 Carbon Dioxide 17 L Anion Gap 24 H BUN 55 H Creatinine 5.3 H Est GFR ( Amer) 14 Est GFR (Non-Af Amer) 12 Random Glucose 169 H Calcium 7.4 L Total Bilirubin 2.9 H AST 1061 H ALT 726 H Alkaline Phosphatase 94 Total Protein 5.7 L Albumin 2.5 L Globulin 3.2 Albumin/Globulin Ratio 0.8 L Arterial Blood Potassium Venous Blood Potassium 10/08/16 10/08/16 10/08/16 05:05 11:55 11:56 WBC RBC Hgb Hct MCV MCH MCHC RDW Plt Count Neutrophils % (Manual) Band Neutrophils % Lymphocytes % (Manual) Reactive Lymphs % Monocytes % (Manual) Metamyelocytes % Myelocytes % Nucleated RBC % Platelet Estimate Large Platelets Polychromasia Hypochromasia (manual) Anisocytosis (manual) pCO2 28 L 30 L pO2 76 L 118 H 35 HCO3 16.0 L 19.3 L ABG pH 7.30 L 7.36 ABG Total CO2 14.7 L 17.8 L ABG O2 Saturation 95.8 98.6 H ABG O2 Content 13.9 L ABG Base Excess -11.3 L -7.3 L ABG Hemoglobin 10.6 L ABG Carboxyhemoglobin 1.2 POC ABG HHb (Measured) 4.1 ABG Methemoglobin 1.9 ABG O2 Capacity 14.5 L Quirino Test Yes Yes ABG Potassium 4.5 VBG pH 7.30 L VBG pCO2 29 L VBG HCO3 15.6 VBG Total CO2 15.2 L VBG O2 Sat (Calc) 69.7 H VBG Base Excess -10.7 L VBG Potassium 3.4 L A-a O2 Difference 602.0 558.0 Hgb O2 Saturation 92.9 L Glucose 118 H 96 Lactate 6.9 H* 5.6 H* Vent Mode A/c A/c Mechanical Rate 14 14 FiO2 100.0 100.0 100.0 Tidal Volume 550 550 PEEP 5 5 Crit Value Called To Marzena newman Crit Value Called By Crit Value Read Back Y Y Blood Gas Notified Time 1212 1201 Sodium 136.0 140.0 Potassium Chloride 106.0 114.0 H Carbon Dioxide Anion Gap BUN Creatinine Est GFR ( Amer) Est GFR (Non-Af Amer) Random Glucose Calcium Total Bilirubin AST ALT Alkaline Phosphatase Total Protein Albumin Globulin Albumin/Globulin Ratio Arterial Blood Potassium 4.5 Venous Blood Potassium 3.4 L Assessment & Plan (1) Acute renal failure (ARF) Assessment and Plan: ARF/GOPI related to gangrenous bowel pt. 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
--- NOTE | 2016-10-08 12:51 | RAD ---
HISTORY: Intubated COMPARISON: 10/07/2016. FINDINGS: The endotracheal tube terminates 4.5 cm proximal to the daryl. LUNGS: There are persistent low lung volumes. PLEURA: Question of small pleural effusions. No pneumothorax. CARDIOVASCULAR: There is mild cardiomegaly. Status post CABG. OSSEOUS STRUCTURES: No significant abnormalities. VISUALIZED UPPER ABDOMEN: Normal. OTHER FINDINGS: None. IMPRESSION: Endotracheal tube in stable position. Persistent mild cardiomegaly and question of small pleural effusions.
--- NOTE | 2016-10-08 15:30 | PCM.PROC ---
Procedures Attestation:: I certify that I have explained the specified Operation(s) or Procedure(s), risks, benefits and reasonable alternatives to the Patient and/or other person responsible. The opportunity was given to ask questions and all questions answered - Central Line Placement Right Femoral Aseptic technique was employed throughout the procedure: Hand Hygiene done prior to procedure, Full sterile barriers (mask, hair cover, sterile gown, sterile gloves), Full body sterile drape, Chloraprep Antiseptic: 2 minute prep for Femoral CVP Time Out Performed: Yes Pt. 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 After standard Time-Out procedure / protocol, using sterile technique and full barrier precautions, an Arrow-Javier Large Bore 12F, 20 cm Triple Lumen Catheter inserted into Right Femoral Vein via guide wire exchange with existing TLC. Placement performed without any complications. All ports with good venous blood return and flushed with sterile saline. Patient tolerated the procedure well. Catheter sutured in place and sterile dressing placed.
[2016-10-08] MEDS ORDERED: Metoprolol 1 mg/ml Inj IVP ONE ×2 (16:22→16:59)
--- NOTE | 2016-10-08 16:43 | CP.PCM.CON ---
History of Present Illness - History of Present Illness History of Present Illness: 51 YR OLD MALE REFERRED FOR PULMONARY FOLLOW UP AND VENTILATOR CARE FOLLOWING ENDOTRACHEAL INTUBATION AFTER EMERGENCY LAPAROTOMY FOR ISCHEMIC BOWEL.THE PT IS UNRESPONSIVE AND PRESENTLY ON A VENTILATOR.HX OF RECENT CABG. CHART REVIEWED AND MEDICAL PROBLEMS NOTED Past Patient History - Past Medical History & Family History Past Medical History?: Yes - Past Social History Smoking Status: Current Some Days Smoker - CARDIAC Hx Cardiac Disorders: Yes Hx Hypertension: Yes Other/Comment: CABG 2 wks ago - PULMONARY Hx Respiratory Disorders: No Other/Comment: smoker - NEUROLOGICAL Hx Neurological Disorder: No Other/Comment: headaches - HEENT Hx HEENT Problems: No - RENAL Hx Chronic Kidney Disease: No - ENDOCRINE/METABOLIC Hx Endocrine Disorders: No - HEMATOLOGICAL/ONCOLOGICAL Hx Blood Disorders: No Hx AIDS: No Hx Human Immunodeficiency Virus (HIV): No - INTEGUMENTARY Hx Dermatological Problems: No - MUSCULOSKELETAL/RHEUMATOLOGICAL Hx Musculoskeletal Disorders: No Hx Falls: No - GASTROINTESTINAL Hx Gastrointestinal Disorders: No Other/Comment: kidney stones - GENITOURINARY/GYNECOLOGICAL Hx Genitourinary Disorders: No - PSYCHIATRIC Hx Psychophysiologic Disorder: No Hx Substance Use: No - SURGICAL HISTORY Hx Surgeries: Yes (cabg 2 wks ago) Hx Coronary Artery Bypass Graft: Yes (about 2 weeks ago) - ANESTHESIA Hx Anesthesia: Yes Hx Anesthesia Reactions: No Hx Malignant Hyperthermia: No Meds Allergies/Adverse Reactions: Allergies Allergy/AdvReac Type Severity Reaction Status Date / Time No Known Allergies Allergy Verified 10/06/16 11:47 - Medications Medications: Current Medications Acetaminophen (Tylenol 325mg Tab) 650 mg PO Q6 PRN PRN Reason: Fever >100.4 F Famotidine (Pepcid) 40 mg IVP DAILY [facility] Last Admin: 10/08/16 12:17 Dose: 40 mg Heparin Sodium (Porcine) (Heparin) 5,000 units SC Q8 [facility] PRN Reason: Protocol Last Admin: 10/08/16 16:35 Dose: 5,000 units Hydromorphone HCl (Dilaudid) 0.5 mg IVP Q6 PRN PRN Reason: Pain, severe (8-10) Last Admin: 10/07/16 18:05 Dose: 0.5 mg Sodium Bicarbonate 150 meq/ (Dextrose) 1,150 mls @ 200 mls/hr IV .Q5H45M [facility] Stop: 10/09/16 11:00 Last Admin: 10/08/16 12:18 Dose: 200 mls/hr Fentanyl Citrate 2,500 mcg/ (Dextrose) 250 mls @ 0 mls/hr IV .Q0M [facility]; Per Protocol PRN Reason: Protocol Last Titration: 10/08/16 13:34 Dose: 2.5 mcg/kg/hr, 21.54 mls/hr Metronidazole (Flagyl 500mg/100ml Ns) 100 mls @ 100 mls/hr IVPB Q8 [facility] Last Admin: 10/08/16 16:35 Dose: 100 mls/hr Cefepime HCl 2 gm/ Sodium (Chloride) 100 mls @ 100 mls/hr IVPB DAILY [facility] Last Admin: 10/08/16 11:24 Dose: 100 mls/hr Morphine Sulfate (Morphine) 2 mg IVP Q6 PRN PRN Reason: Pain, moderate (4-7) Ondansetron HCl (Zofran Inj) 4 mg IVP Q6 PRN PRN Reason: Nausea/Vomiting Physical Exam - Constitutional Appears: Toxic - Head Exam Head Exam: ATRAUMATIC, NORMAL INSPECTION, NORMOCEPHALIC - Eye Exam Eye Exam: EOMI, Normal appearance, PERRL Pupil Exam: NORMAL ACCOMODATION, PERRL - ENT Exam ENT Exam: Mucous Membranes Moist, Normal Exam Additional comments: ETT IN GOOD POSITION - Neck Exam Neck exam: Positive for: Normal Inspection - Respiratory Exam Respiratory Exam: Rales Additional comments: ON THE VENTILATOR - Cardiovascular Exam Cardiovascular Exam: Tachycardia Additional comments: SCAR OF CABG - GI/Abdominal Exam GI & Abdominal Exam: absent: Tenderness Additional comments: SURGICAL DRESSING IN PLACE OVER ABDOMEN - Rectal Exam Rectal Exam: NORMAL INSPECTION - Extremities Exam Extremities exam: Positive for: pedal edema - Back Exam Back exam: NORMAL INSPECTION - Skin Skin Exam: Dry, Intact, Normal Color, Warm Results - Vital Signs Recent Vital Signs: Last Vital Signs Temp 98.2 F 10/08/16 16:00 Pulse 171 H 10/08/16 16:32 Resp 20 10/08/16 16:00 BP 125/66 10/08/16 16:32 Pulse Ox 99 10/08/16 16:00 - Labs Result Diagrams: 10/08/16 04:35 10/08/16 04:35 Labs: Laboratory Results - last 24 hr 10/08/16 10/08/16 10/08/16 04:35 04:35 05:05 WBC 12.8 H RBC 3.50 L Hgb 9.7 L Hct 31.4 L MCV 89.5 MCH 27.8 MCHC 31.1 L RDW 16.2 H Plt Count 151 D pCO2 28 L pO2 76 L HCO3 16.0 L ABG pH 7.30 L ABG Total CO2 14.7 L ABG O2 Saturation 95.8 ABG O2 Content 13.9 L ABG Base Excess -11.3 L ABG Hemoglobin 10.6 L ABG Carboxyhemoglobin 1.2 POC ABG HHb (Measured) 4.1 ABG Methemoglobin 1.9 ABG O2 Capacity 14.5 L Quirino Test Yes ABG Potassium VBG pH VBG pCO2 VBG HCO3 VBG Total CO2 VBG O2 Sat (Calc) VBG Base Excess VBG Potassium A-a O2 Difference 602.0 Hgb O2 Saturation 92.9 L Glucose Lactate Vent Mode A/c Mechanical Rate 14 FiO2 100.0 Tidal Volume 550 PEEP Crit Value Called To Crit Value Called By Crit Value Read Back Blood Gas Notified Time Sodium 139 Potassium 4.7 Chloride 103 Carbon Dioxide 17 L Anion Gap 24 H BUN 55 H Creatinine 5.3 H Est GFR ( Amer) 14 Est GFR (Non-Af Amer) 12 Random Glucose 169 H Lactic Acid Calcium 7.4 L Total Bilirubin 2.9 H AST 1061 H ALT 726 H Alkaline Phosphatase 94 Total Protein 5.7 L Albumin 2.5 L Globulin 3.2 Albumin/Globulin Ratio 0.8 L Arterial Blood Potassium Venous Blood Potassium 10/08/16 10/08/16 10/08/16 11:55 11:56 12:45 WBC RBC Hgb Hct MCV MCH MCHC RDW Plt Count pCO2 30 L pO2 118 H 35 HCO3 19.3 L ABG pH 7.36 ABG Total CO2 17.8 L ABG O2 Saturation 98.6 H ABG O2 Content ABG Base Excess -7.3 L ABG Hemoglobin ABG Carboxyhemoglobin POC ABG HHb (Measured) ABG Methemoglobin ABG O2 Capacity Quirino Test Yes ABG Potassium 4.5 VBG pH 7.30 L VBG pCO2 29 L VBG HCO3 15.6 VBG Total CO2 15.2 L VBG O2 Sat (Calc) 69.7 H VBG Base Excess -10.7 L VBG Potassium 3.4 L A-a O2 Difference 558.0 Hgb O2 Saturation Glucose 118 H 96 Lactate 6.9 H* 5.6 H* Vent Mode A/c Mechanical Rate 14 FiO2 100.0 100.0 Tidal Volume 550 PEEP 5 5 Crit Value Called To Marzena newman Crit Value Called By Crit Value Read Back Y Y Blood Gas Notified Time 1212 1201 Sodium 136.0 140.0 Potassium Chloride 106.0 114.0 H Carbon Dioxide Anion Gap BUN Creatinine Est GFR ( Amer) Est GFR (Non-Af Amer) Random Glucose Lactic Acid 6.3 H* Calcium Total Bilirubin AST ALT Alkaline Phosphatase Total Protein Albumin Globulin Albumin/Globulin Ratio Arterial Blood Potassium 4.5 Venous Blood Potassium 3.4 L Assessment & Plan - Assessment and Plan (Free Text) Assessment: MULTIORGAN FAIOLURE ISCHEMIC BOWEL Plan: CONTINUE CURRENT RX PROGNOSIS IS POOR
[2016-10-09] MEDS: Sodium Bicarbonate 8.4% 150 MEQ in Dextrose 5% In Water 1,000 ML IV SCH ×4 (00:10→19:30)
[2016-10-09] MEDS: Fentanyl Citrate 2,500 MCG in Dextrose 5% In Water 200 ML IV SCH ×3 (00:15→22:00)
[2016-10-09] MEDS: metroNIDAZOLE 500mg/100ml NS 100 ML IVPB SCH ×3 (01:03→18:16)
[2016-10-09 04:48] LABS: ABG ALLEN TEST YES
[2016-10-09 05:23] LABS: ALB/GLOB RATIO 0.9 (1.0-2.1); ALBUMIN 2.5 g/dL (3.5-5.0); CALCIUM 6.9 mg/dL (8.4-10.2)
[2016-10-09 06:23] LABS: BASO # 0.1 K/uL (0.0-0.2); BASO % 0.3 % (0.0-2.0); EOS # 0.8 K/uL (0.0-0.7); EOS % 4.6 % (0.0-4.0); HEMOGLOBIN 9.2 g/dL (12.0-18.0); LYMPH # 1.6 K/uL (1.0-4.3); MEAN CELL VOLUME 87.3 fl (80.0-94.0); MEAN CORPUSCULAR HEMOGLOBIN 27.8 pg (27.0-31.0); MEAN CORPUSCULAR HGB CONC 31.9 g/dL (33.0-37.0); MEAN PLATELET VOLUME 8.8 fl (7.2-11.7); MONO # 0.6 K/uL (0.0-0.8); MONO % 3.4 % (0.0-10.0); NEUT % 82.7 % (50.0-75.0); NRBC % 12.4 % (0.0-0.0); PLATELET COUNT 87 K/uL (130-400); RBC 3.29 Mil/uL (4.40-5.90); RED CELL DISTRIBUTION WIDTH 15.9 % (11.5-14.5); WHITE BLOOD COUNT 18.1 K/uL (4.8-10.8)
[2016-10-09 07:42] LABS: ANISOCYTOSIS SLIGHT; BANDS 19 % (0-2); LYMPHOCYTE 14 % (20-50); MONOCYTE 9 % (0-10); MYELOCYTE 1 % (0-0); NEUTROPHIL 54 % (42-75); NUCLEATED RED BLOOD CELL 14 % (0-0); PLATELET ESTIMATE MARKEDLY DECREASED (NORMAL); REACTIVE LYMPHOCYTES 3 % (0-0); TOTAL CELLS COUNTED 100
[2016-10-09 07:43] LABS: HYPOCHROMIC SLIGHT
[2016-10-09 07:44] LABS: ACANTHOCYTES MODERATE; SMUDGE CELLS PRESENT
[2016-10-09 07:47] LABS: BURR CELLS SLIGHT
--- NOTE | 2016-10-09 08:28 | CARD ---
APPROVED REPORT EKG Measurement Heart [id number] <Conclusion> Normal sinus rhythm Possible Left atrial enlargement Nonspecific T wave abnormality Prolonged QT Abnormal ECG
--- NOTE | 2016-10-09 08:50 | CP.PCM.PN ---
<BoyKyle alvarez - Last Filed: 10/09/16 08:44> Subjective - Date & Time of Evaluation Date of Evaluation: 10/09/16 Time of Evaluation: 08:44 - Subjective Subjective: Surgery Progress note. Dr. Sacnhez Pt seen and examined at bedside. Grimaces to palpation of abdomen. Does not respond to verbal stimuli. Intubated and on vent. Taylor in place, UOP 25cc over past 12 hrs. Patient received dialysis last night with 1L removed. A.Fib last night and on Amiodarone drip currently. Sedated on fentanyl. Objective - Vital Signs/Intake and Output Vital Signs (last 24 hours): Temp Pulse Resp BP Pulse Ox 98.3 F 74 15 114/40 L 100 10/09/16 04:00 10/09/16 07:00 10/09/16 07:00 10/09/16 06:00 10/09/16 07:00 Intake and Output: 10/09/16 10/09/16 06:59 18:59 Intake Total 3334 Output Total 1325 Balance 2008 - Medications Medications: Current Medications Acetaminophen (Tylenol 325mg Tab) 650 mg PO Q6 PRN PRN Reason: Fever >100.4 F Famotidine (Pepcid) 40 mg IVP DAILY [facility] Last Admin: 10/08/16 12:17 Dose: 40 mg Heparin Sodium (Porcine) (Heparin) 5,000 units SC Q8 [facility] PRN Reason: Protocol Last Admin: 10/09/16 01:05 Dose: 5,000 units Hydromorphone HCl (Dilaudid) 0.5 mg IVP Q6 PRN PRN Reason: Pain, severe (8-10) Last Admin: 10/07/16 18:05 Dose: 0.5 mg Sodium Bicarbonate 150 meq/ (Dextrose) 1,150 mls @ 200 mls/hr IV .Q5H45M [facility] Stop: 10/09/16 11:00 Last Admin: 10/09/16 05:55 Dose: 200 mls/hr Fentanyl Citrate 2,500 mcg/ (Dextrose) 250 mls @ 0 mls/hr IV .Q0M [facility]; Per Protocol PRN Reason: Protocol Last Admin: 10/09/16 00:15 Dose: 2.5 mcg/kg/hr, 21.54 mls/hr Metronidazole (Flagyl 500mg/100ml Ns) 100 mls @ 100 mls/hr IVPB Q8 [facility] Last Admin: 10/09/16 01:03 Dose: 100 mls/hr Cefepime HCl 2 gm/ Sodium (Chloride) 100 mls @ 100 mls/hr IVPB DAILY [facility] Last Admin: 10/08/16 11:24 Dose: 100 mls/hr Amiodarone HCl 450 mg/ (Dextrose) 259 mls @ 34.53 mls/hr IVPB .Q7H31M [facility]; 1 MG /MIN PRN Reason: Protocol Last Admin: 10/09/16 00:57 Dose: 17.26 mls/hr Morphine Sulfate (Morphine) 2 mg IVP Q6 PRN PRN Reason: Pain, moderate (4-7) Ondansetron HCl (Zofran Inj) 4 mg IVP Q6 PRN PRN Reason: Nausea/Vomiting - Labs Labs: 10/09/16 04:20 10/09/16 04:20 PT 18.5 Seconds (9.8-13.1) H 10/06/16 16:20 INR 1.6 (0.9-1.2) H 10/06/16 16:20 APTT 33.3 Seconds (25.6-37.1) 10/06/16 16:20 - Head Exam Head Exam: ATRAUMATIC, NORMAL INSPECTION, NORMOCEPHALIC - Eye Exam Additional comments: pupils reactive. No purposeful eye movements. - ENT Exam Additional comments: NGT to suction. 300cc/12hrs bilious - Respiratory Exam Additional comments: Intubated and on vent. PRVC Rate 18, TV 550, FiO2 100% - Cardiovascular Exam Additional comments: currently Normal sinus rhythm at 60 on monitor. On Amiodarone drip. - GI/Abdominal Exam Additional comments: Distended. Grimaces upon palpation of abdomen diffusely. Midline surgical incision with bandage intact and few streaks noted. - Neurological Exam Additional comments: does not respond to verbal stimuli. Grimaces to abdominal palpation Assessment and Plan - Assessment and Plan (Free Text) Assessment: 51yo M with Mesenteric Ischemia. S/p Ex lap with examination of entire bowel 7/ 8. POD 3 - Ischemic entire small bowel and right colon - Acute Kidney Injury. Creatinine elevated. UOP 25/12hrs. HD last night with 1L removed - A.Fib last night. On Amiodarone drip, converted to NSR currently. - Hyperbilirubinemia worse - Leukocytosis worse - poor prognosis - Continue to medically optimize - Strict I&Os - NGT to suction - Continue ABX - No further surgical intervention further recs as per Dr. Daniel Brunson PGY1 <Claixto Sanchez - Last Filed: 10/09/16 11:03> Subjective - Date & Time of Evaluation Time of Evaluation: 10:30 - Subjective Subjective: Patient was seen and examined at the bedside. Agree with resident's note above. Objective - Vital Signs/Intake and Output Vital Signs (last 24 hours): Temp Pulse Resp BP Pulse Ox 98.6 F 63 18 128/45 L 100 10/09/16 08:00 10/09/16 09:00 10/09/16 09:00 10/09/16 09:00 10/09/16 09:00 Intake and Output: 10/09/16 10/09/16 06:59 18:59 Intake Total 3334 0 Output Total 1325 Balance 2008 0 - Medications Medications: Current Medications Acetaminophen (Tylenol 325mg Tab) 650 mg PO Q6 PRN PRN Reason: Fever >100.4 F Famotidine (Pepcid) 40 mg IVP DAILY [facility] Last Admin: 10/09/16 09:26 Dose: 40 mg Heparin Sodium (Porcine) (Heparin) 5,000 units SC Q8 [facility] PRN Reason: Protocol Last Admin: 10/09/16 10:12 Dose: 5,000 units Hydromorphone HCl (Dilaudid) 0.5 mg IVP Q6 PRN PRN Reason: Pain, severe (8-10) Last Admin: 10/07/16 18:05 Dose: 0.5 mg Fentanyl Citrate 2,500 mcg/ (Dextrose) 250 mls @ 0 mls/hr IV .Q0M [facility]; Per Protocol PRN Reason: Protocol Last Titration: 10/09/16 09:20 Dose: 3 mcg/kg/hr, 25.85 mls/hr Metronidazole (Flagyl 500mg/100ml Ns) 100 mls @ 100 mls/hr IVPB Q8 [facility] Last Admin: 10/09/16 09:23 Dose: 100 mls/hr Amiodarone HCl 450 mg/ (Dextrose) 259 mls @ 34.53 mls/hr IVPB .Q7H31M [facility]; 1 MG /MIN PRN Reason: Protocol Last Admin: 10/09/16 00:57 Dose: 17.26 mls/hr Cefoxitin Sodium 2 gm/ Sodium (Chloride) 100 mls @ 100 mls/hr IVPB DAILY [facility] Morphine Sulfate (Morphine) 2 mg IVP Q6 PRN PRN Reason: Pain, moderate (4-7) Ondansetron HCl (Zofran Inj) 4 mg IVP Q6 PRN PRN Reason: Nausea/Vomiting - Labs Labs: 10/09/16 04:20 10/09/16 04:20 PT 18.5 Seconds (9.8-13.1) H 10/06/16 16:20 INR 1.6 (0.9-1.2) H 10/06/16 16:20 APTT 33.3 Seconds (25.6-37.1) 10/06/16 16:20
--- NOTE | 2016-10-09 09:19 | CP.PCM.PN ---
Subjective - Date & Time of Evaluation Date of Evaluation: 10/09/16 Time of Evaluation: 08:30 - Subjective Subjective: Pt seen and examined Remains int[facility] Vent No fever Poor prognosis had episode of A fib yesterday , SR today Had Hemodialysis last night , Temp HD cath placed by Dr Robledo yesterday Off pressors off Amiodarone on fentanyl drip Objective - Vital Signs/Intake and Output Vital Signs (last 24 hours): Temp Pulse Resp BP Pulse Ox 98.6 F 63 18 113/41 L 100 10/09/16 08:00 10/09/16 08:00 10/09/16 08:00 10/09/16 08:00 10/09/16 08:00 Intake and Output: 10/09/16 10/09/16 06:59 18:59 Intake Total 3334 Output Total 1325 Balance 2008 - Medications Medications: Current Medications Acetaminophen (Tylenol 325mg Tab) 650 mg PO Q6 PRN PRN Reason: Fever >100.4 F Famotidine (Pepcid) 40 mg IVP DAILY [facility] Last Admin: 10/08/16 12:17 Dose: 40 mg Heparin Sodium (Porcine) (Heparin) 5,000 units SC Q8 [facility] PRN Reason: Protocol Last Admin: 10/09/16 01:05 Dose: 5,000 units Hydromorphone HCl (Dilaudid) 0.5 mg IVP Q6 PRN PRN Reason: Pain, severe (8-10) Last Admin: 10/07/16 18:05 Dose: 0.5 mg Sodium Bicarbonate 150 meq/ (Dextrose) 1,150 mls @ 200 mls/hr IV .Q5H45M [facility] Stop: 10/09/16 11:00 Last Admin: 10/09/16 05:55 Dose: 200 mls/hr Fentanyl Citrate 2,500 mcg/ (Dextrose) 250 mls @ 0 mls/hr IV .Q0M RUTHY; Per Protocol PRN Reason: Protocol Last Admin: 10/09/16 00:15 Dose: 2.5 mcg/kg/hr, 21.54 mls/hr Metronidazole (Flagyl 500mg/100ml Ns) 100 mls @ 100 mls/hr IVPB Q8 [facility] Last Admin: 10/09/16 01:03 Dose: 100 mls/hr Cefepime HCl 2 gm/ Sodium (Chloride) 100 mls @ 100 mls/hr IVPB DAILY [facility] Last Admin: 10/08/16 11:24 Dose: 100 mls/hr Amiodarone HCl 450 mg/ (Dextrose) 259 mls @ 34.53 mls/hr IVPB .Q7H31M [facility]; 1 MG /MIN PRN Reason: Protocol Last Admin: 10/09/16 00:57 Dose: 17.26 mls/hr Morphine Sulfate (Morphine) 2 mg IVP Q6 PRN PRN Reason: Pain, moderate (4-7) Ondansetron HCl (Zofran Inj) 4 mg IVP Q6 PRN PRN Reason: Nausea/Vomiting - Labs Labs: 10/09/16 04:20 10/09/16 04:20 PT 18.5 Seconds (9.8-13.1) H 10/06/16 16:20 INR 1.6 (0.9-1.2) H 10/06/16 16:20 APTT 33.3 Seconds (25.6-37.1) 10/06/16 16:20 - Constitutional Appears: Other (Intubated on Mech vent) - Head Exam Head Exam: NORMAL INSPECTION, NORMOCEPHALIC - Eye Exam Eye Exam: Normal appearance, PERRL - ENT Exam ENT Exam: Mucous Membranes Dry, Normal External Ear Exam - Respiratory Exam Respiratory Exam: Rales, Rhonchi Additional comments: Intubated on Vent - Cardiovascular Exam Cardiovascular Exam: REGULAR RHYTHM, +S1, +S2 - GI/Abdominal Exam GI & Abdominal Exam: Distended, Soft, Tenderness - Extremities Exam Extremities Exam: Pedal Edema - Neurological Exam Additional comments: Sedated, Intubated responds to painful stimuli - grimaces - Skin Skin Exam: Dry, Normal Color Assessment and Plan (1) Acute diffuse ischemia of intestine Status: Acute (2) Septic shock Status: Acute (3) Acute renal failure Status: Acute (4) Shock liver Status: Acute (5) CAD (coronary artery disease) Status: Acute (6) A-fib Status: Acute - Assessment and Plan (Free Text) Assessment: 51 y/o male with PMH CABG 2 weeks ago, back pain, HTN, presented with severe sharp abdominal pain associated with nausea and emesis for two days. In ER, pt found to have intractable abdominal pain, disproportionate to exam. CT showed evidence of mesenteric ischemia/infarction. Seen by surgery in ER and taken to OR for emergent exploratory laparatomy by Dr. Sanchez that showed ischemic small bowel and right colon. No surgical intervention could be done, the patient was closed up and transferred to ICU for medical care. Currently intubated on MV , sedated on Feentanyl, on Bicarb drip, off Levophed, off Amiodarone. Poor Prognosis. No family in the [place] ( pt is from [place]) 1.Septic shock secondary to ischemic bowel Intubated on MV , sedated off levophed drip, IVF cont Fentanyl drip Critically ill with very poor prognosis cont Cefepime and IV Flagyl 2. Ischemic/Necrotic bowel s/p exploratory laparatomy by general surgery showing necrotic small bowel and right colon No surgical intervention possible at this time Supportive care GI consulted 3.Elevated transaminases likely Shock Liver/decrease perfusion likely secondary to mesenteric ischemia Continue to monitor NGT in place with bloody output 4. GOPI likely due to decrease perfusion continue to hydrate patient Nephrology consult - Dr Claudia Law HD cath placed by Dr Robledo Hemodialysis started last night 5. CAD s/p CABG 2 weeks ago Cardio consult : Dr Putnam 6. A Fib with RVR episode resolved received Amiodarone, off drip Cardio consulted DVT prophylaxis SCD Heparin
--- NOTE | 2016-10-09 09:42 | CP.PCM.PN ---
Subjective - Date & Time of Evaluation Date of Evaluation: 10/09/16 Time of Evaluation: 09:42 - Subjective Subjective: STILL INTUBATED AND BEING VENTILATED RESPONDS TO PAINFUL STIMULI BY OPENING EYES NO NEW CLINICAL FINDINGS WILL CONTINUE VENT MONITORING PROGNOSIS IS POOR Objective - Vital Signs/Intake and Output Vital Signs (last 24 hours): Temp Pulse Resp BP Pulse Ox 98.6 F 63 18 128/45 L 100 10/09/16 08:00 10/09/16 09:00 10/09/16 09:00 10/09/16 09:00 10/09/16 09:00 Intake and Output: 10/09/16 10/09/16 06:59 18:59 Intake Total 3334 0 Output Total 1325 Balance 2008 0 - Medications Medications: Current Medications Acetaminophen (Tylenol 325mg Tab) 650 mg PO Q6 PRN PRN Reason: Fever >100.4 F Famotidine (Pepcid) 40 mg IVP DAILY [facility] Last Admin: 10/09/16 09:26 Dose: 40 mg Heparin Sodium (Porcine) (Heparin) 5,000 units SC Q8 [facility] PRN Reason: Protocol Last Admin: 10/09/16 01:05 Dose: 5,000 units Hydromorphone HCl (Dilaudid) 0.5 mg IVP Q6 PRN PRN Reason: Pain, severe (8-10) Last Admin: 10/07/16 18:05 Dose: 0.5 mg Sodium Bicarbonate 150 meq/ (Dextrose) 1,150 mls @ 200 mls/hr IV .Q5H45M [facility] Stop: 10/09/16 11:00 Last Admin: 10/09/16 05:55 Dose: 200 mls/hr Fentanyl Citrate 2,500 mcg/ (Dextrose) 250 mls @ 0 mls/hr IV .Q0M [facility]UTHY; Per Protocol PRN Reason: Protocol Last Titration: 10/09/16 09:20 Dose: 3 mcg/kg/hr, 25.85 mls/hr Metronidazole (Flagyl 500mg/100ml Ns) 100 mls @ 100 mls/hr IVPB Q8 [facility] Last Admin: 10/09/16 09:23 Dose: 100 mls/hr Cefepime HCl 2 gm/ Sodium (Chloride) 100 mls @ 100 mls/hr IVPB DAILY [facility] Last Admin: 10/08/16 11:24 Dose: 100 mls/hr Amiodarone HCl 450 mg/ (Dextrose) 259 mls @ 34.53 mls/hr IVPB .Q7H31M [facility]; 1 MG /MIN PRN Reason: Protocol Last Admin: 10/09/16 00:57 Dose: 17.26 mls/hr Morphine Sulfate (Morphine) 2 mg IVP Q6 PRN PRN Reason: Pain, moderate (4-7) Ondansetron HCl (Zofran Inj) 4 mg IVP Q6 PRN PRN Reason: Nausea/Vomiting - Labs Labs: 10/09/16 04:20 10/09/16 04:20 PT 18.5 Seconds (9.8-13.1) H 10/06/16 16:20 INR 1.6 (0.9-1.2) H 10/06/16 16:20 APTT 33.3 Seconds (25.6-37.1) 10/06/16 16:20
--- NOTE | 2016-10-09 10:30 | CP.PCM.PN ---
Subjective - Date & Time of Evaluation Date of Evaluation: 10/09/16 Time of Evaluation: 10:28 - Subjective Subjective: Patient remained intubated and unresponsive Vital sign is noted Patient had dialysis last night and tolerated is okay Urine output very poor Objective - Vital Signs/Intake and Output Vital Signs (last 24 hours): Temp Pulse Resp BP Pulse Ox 98.6 F 63 18 128/45 L 100 10/09/16 08:00 10/09/16 09:00 10/09/16 09:00 10/09/16 09:00 10/09/16 09:00 Intake and Output: 10/09/16 10/09/16 06:59 18:59 Intake Total 3334 0 Output Total 1325 Balance 2008 0 - Medications Medications: Current Medications Acetaminophen (Tylenol 325mg Tab) 650 mg PO Q6 PRN PRN Reason: Fever >100.4 F Famotidine (Pepcid) 40 mg IVP DAILY [facility] Last Admin: 10/09/16 09:26 Dose: 40 mg Heparin Sodium (Porcine) (Heparin) 5,000 units SC Q8 [facility] PRN Reason: Protocol Last Admin: 10/09/16 10:12 Dose: 5,000 units Hydromorphone HCl (Dilaudid) 0.5 mg IVP Q6 PRN PRN Reason: Pain, severe (8-10) Last Admin: 10/07/16 18:05 Dose: 0.5 mg Sodium Bicarbonate 150 meq/ (Dextrose) 1,150 mls @ 200 mls/hr IV .Q5H45M [facility] Stop: 10/09/16 11:00 Last Admin: 10/09/16 05:55 Dose: 200 mls/hr Fentanyl Citrate 2,500 mcg/ (Dextrose) 250 mls @ 0 mls/hr IV .Q0M [facility]; Per Protocol PRN Reason: Protocol Last Titration: 10/09/16 09:20 Dose: 3 mcg/kg/hr, 25.85 mls/hr Metronidazole (Flagyl 500mg/100ml Ns) 100 mls @ 100 mls/hr IVPB Q8 [facility] Last Admin: 10/09/16 09:23 Dose: 100 mls/hr Cefepime HCl 2 gm/ Sodium (Chloride) 100 mls @ 100 mls/hr IVPB DAILY [facility] Last Admin: 10/08/16 11:24 Dose: 100 mls/hr Amiodarone HCl 450 mg/ (Dextrose) 259 mls @ 34.53 mls/hr IVPB .Q7H31M [facility]; 1 MG /MIN PRN Reason: Protocol Last Admin: 10/09/16 00:57 Dose: 17.26 mls/hr Morphine Sulfate (Morphine) 2 mg IVP Q6 PRN PRN Reason: Pain, moderate (4-7) Ondansetron HCl (Zofran Inj) 4 mg IVP Q6 PRN PRN Reason: Nausea/Vomiting - Labs Labs: 10/09/16 04:20 10/09/16 04:20 PT 18.5 Seconds (9.8-13.1) H 10/06/16 16:20 INR 1.6 (0.9-1.2) H 10/06/16 16:20 APTT 33.3 Seconds (25.6-37.1) 10/06/16 16:20 - Constitutional Appears: In Acute Distress - ENT Exam ENT Exam: Mucous Membranes Moist - Respiratory Exam Respiratory Exam: absent: Chest Wall Tenderness - Cardiovascular Exam Cardiovascular Exam: REGULAR RHYTHM. absent: Rubs - GI/Abdominal Exam GI & Abdominal Exam: Tenderness Additional comments: status post abdominal surgery - Extremities Exam Extremities Exam: absent: Calf Tenderness - Back Exam Back Exam: absent: CVA tenderness (L), CVA tenderness (R) - Neurological Exam Neurological Exam: Altered Assessment and Plan (1) Acute renal failure (ARF) Assessment & Plan: Acute renal failure with respiratory failure Status post laparotomy with gangrene of the intestine as described by the surgery Patient has very poor urine output. Prognosis very poor Continue hemodialysis Status: Acute
--- NOTE | 2016-10-09 10:56 | CP.PCM.PN ---
Subjective - Date & Time of Evaluation Date of Evaluation: 10/09/16 Time of Evaluation: 11:00 - Subjective Subjective: still intubated, pump tender Objective - Vital Signs/Intake and Output Vital Signs (last 24 hours): Temp Pulse Resp BP Pulse Ox 98.6 F 63 18 128/45 L 100 10/09/16 08:00 10/09/16 09:00 10/09/16 09:00 10/09/16 09:00 10/09/16 09:00 Intake and Output: 10/09/16 10/09/16 06:59 18:59 Intake Total 3334 0 Output Total 1325 Balance 2008 0 - Medications Medications: Current Medications Acetaminophen (Tylenol 325mg Tab) 650 mg PO Q6 PRN PRN Reason: Fever >100.4 F Famotidine (Pepcid) 40 mg IVP DAILY [facility] Last Admin: 10/09/16 09:26 Dose: 40 mg Heparin Sodium (Porcine) (Heparin) 5,000 units SC Q8 [facility] PRN Reason: Protocol Last Admin: 10/09/16 10:12 Dose: 5,000 units Hydromorphone HCl (Dilaudid) 0.5 mg IVP Q6 PRN PRN Reason: Pain, severe (8-10) Last Admin: 10/07/16 18:05 Dose: 0.5 mg Sodium Bicarbonate 150 meq/ (Dextrose) 1,150 mls @ 200 mls/hr IV .Q5H45M [facility] Stop: 10/09/16 11:00 Last Admin: 10/09/16 05:55 Dose: 200 mls/hr Fentanyl Citrate 2,500 mcg/ (Dextrose) 250 mls @ 0 mls/hr IV .Q0M [facility]; Per Protocol PRN Reason: Protocol Last Titration: 10/09/16 09:20 Dose: 3 mcg/kg/hr, 25.85 mls/hr Metronidazole (Flagyl 500mg/100ml Ns) 100 mls @ 100 mls/hr IVPB Q8 [facility] Last Admin: 10/09/16 09:23 Dose: 100 mls/hr Cefepime HCl 2 gm/ Sodium (Chloride) 100 mls @ 100 mls/hr IVPB DAILY [facility] Last Admin: 10/08/16 11:24 Dose: 100 mls/hr Amiodarone HCl 450 mg/ (Dextrose) 259 mls @ 34.53 mls/hr IVPB .Q7H31M [facility]; 1 MG /MIN PRN Reason: Protocol Last Admin: 10/09/16 00:57 Dose: 17.26 mls/hr Morphine Sulfate (Morphine) 2 mg IVP Q6 PRN PRN Reason: Pain, moderate (4-7) Ondansetron HCl (Zofran Inj) 4 mg IVP Q6 PRN PRN Reason: Nausea/Vomiting - Labs Labs: 10/09/16 04:20 10/09/16 04:20 PT 18.5 Seconds (9.8-13.1) H 10/06/16 16:20 INR 1.6 (0.9-1.2) H 10/06/16 16:20 APTT 33.3 Seconds (25.6-37.1) 10/06/16 16:20 - GI/Abdominal Exam GI & Abdominal Exam: Tenderness, Diminished Bowel Sounds Assessment and Plan - Assessment and Plan (Free Text) Assessment: 51 yo male with necrotic bowel likely mesenteric ischemia abx consultants input appreciated poor prognosis clarify goals of care
--- NOTE | 2016-10-09 10:57 | CP.PCM.CON ---
History of Present Illness - History of Present Illness History of Present Illness: This is a 51-year-old male admitted on 10/06/2016 Left severe abdominal pain He was taken to emergency surgery for laparoscopy And found to have ischemic bowel His past medical history significant for 2 weeks ago had coronary artery bypass surgery [place] It is unknown myocardial follow-up the patient had Since surgery the patient has been on a ventilator intubated And is minimally responsive to pain He has required pressors for his blood pressure Estimated because he went into atrial fibrillation with a rapid ventricular response he was started on amiodarone She rapidly converted to sinus rhythm and is now in a normal sinus rhythm at 65 bpm Troponins are negative EKG shows a normal sinus rhythm Review of Systems - Review of Systems Systems not reviewed;Unavailable: Unstable Vital Signs Past Patient History - Past Medical History & Family History Past Medical History?: Yes - Past Social History Smoking Status: Current Some Days Smoker - CARDIAC Hx Cardiac Disorders: Yes Hx Hypertension: Yes Other/Comment: CABG 2 wks ago - PULMONARY Hx Respiratory Disorders: No Other/Comment: smoker - NEUROLOGICAL Hx Neurological Disorder: No Other/Comment: headaches - HEENT Hx HEENT Problems: No - RENAL Hx Chronic Kidney Disease: No - ENDOCRINE/METABOLIC Hx Endocrine Disorders: No - HEMATOLOGICAL/ONCOLOGICAL Hx Blood Disorders: No Hx AIDS: No Hx Human Immunodeficiency Virus (HIV): No - INTEGUMENTARY Hx Dermatological Problems: No - MUSCULOSKELETAL/RHEUMATOLOGICAL Hx Musculoskeletal Disorders: No Hx Falls: No - GASTROINTESTINAL Hx Gastrointestinal Disorders: No Other/Comment: kidney stones - GENITOURINARY/GYNECOLOGICAL Hx Genitourinary Disorders: No - PSYCHIATRIC Hx Psychophysiologic Disorder: No Hx Substance Use: No - SURGICAL HISTORY Hx Surgeries: Yes (cabg 2 wks ago) Hx Coronary Artery Bypass Graft: Yes (about 2 weeks ago) - ANESTHESIA Hx Anesthesia: Yes Hx Anesthesia Reactions: No Hx Malignant Hyperthermia: No Meds Allergies/Adverse Reactions: Allergies Allergy/AdvReac Type Severity Reaction Status Date / Time No Known Allergies Allergy Verified 10/06/16 11:47 - Medications Medications: Current Medications Acetaminophen (Tylenol 325mg Tab) 650 mg PO Q6 PRN PRN Reason: Fever >100.4 F Famotidine (Pepcid) 40 mg IVP DAILY [facility] Last Admin: 10/09/16 09:26 Dose: 40 mg Heparin Sodium (Porcine) (Heparin) 5,000 units SC Q8 [facility] PRN Reason: Protocol Last Admin: 10/09/16 10:12 Dose: 5,000 units Hydromorphone HCl (Dilaudid) 0.5 mg IVP Q6 PRN PRN Reason: Pain, severe (8-10) Last Admin: 10/07/16 18:05 Dose: 0.5 mg Sodium Bicarbonate 150 meq/ (Dextrose) 1,150 mls @ 200 mls/hr IV .Q5H45M [facility] Stop: 10/09/16 11:00 Last Admin: 10/09/16 05:55 Dose: 200 mls/hr Fentanyl Citrate 2,500 mcg/ (Dextrose) 250 mls @ 0 mls/hr IV .Q0M [facility]; Per Protocol PRN Reason: Protocol Last Titration: 10/09/16 09:20 Dose: 3 mcg/kg/hr, 25.85 mls/hr Metronidazole (Flagyl 500mg/100ml Ns) 100 mls @ 100 mls/hr IVPB Q8 [facility] Last Admin: 10/09/16 09:23 Dose: 100 mls/hr Cefepime HCl 2 gm/ Sodium (Chloride) 100 mls @ 100 mls/hr IVPB DAILY [facility] Last Admin: 10/08/16 11:24 Dose: 100 mls/hr Amiodarone HCl 450 mg/ (Dextrose) 259 mls @ 34.53 mls/hr IVPB .Q7H31M [facility]; 1 MG /MIN PRN Reason: Protocol Last Admin: 10/09/16 00:57 Dose: 17.26 mls/hr Morphine Sulfate (Morphine) 2 mg IVP Q6 PRN PRN Reason: Pain, moderate (4-7) Ondansetron HCl (Zofran Inj) 4 mg IVP Q6 PRN PRN Reason: Nausea/Vomiting Physical Exam - Constitutional Appears: Toxic - Head Exam Head Exam: NORMAL INSPECTION - ENT Exam ENT Exam: Normal Exam - Neck Exam Neck exam: Positive for: Normal Inspection - Respiratory Exam Respiratory Exam: Rales - Cardiovascular Exam Cardiovascular Exam: REGULAR RHYTHM - GI/Abdominal Exam GI & Abdominal Exam: Distended, Guarding, Tenderness Results - Vital Signs Recent Vital Signs: Last Vital Signs Temp 98.6 F 10/09/16 08:00 Pulse 63 10/09/16 09:00 Resp 18 10/09/16 09:00 BP 128/45 L 10/09/16 09:00 Pulse Ox 100 10/09/16 09:00 - Labs Result Diagrams: 10/09/16 04:20 10/09/16 04:20 Labs: Laboratory Results - last 24 hr 10/08/16 10/08/16 10/08/16 04:35 11:55 11:56 WBC RBC Hgb Hct MCV MCH MCHC RDW Plt Count MPV Neut % (Auto) Lymph % (Auto) [place] % (Auto) Eos % (Auto) Baso % (Auto) Neut # Lymph # [place] # Eos # Baso # Neutrophils % (Manual) Band Neutrophils % Lymphocytes % (Manual) Reactive Lymphs % Monocytes % (Manual) Myelocytes % Nucleated RBC % Smudge Cells Platelet Estimate Hypochromasia (manual) Anisocytosis (manual) Duc Cells Acanthocytes (Spur) pCO2 30 L pO2 118 H 35 HCO3 19.3 L ABG pH 7.36 ABG Total CO2 17.8 L ABG O2 Saturation 98.6 H ABG O2 Content ABG Base Excess -7.3 L ABG Hemoglobin ABG Carboxyhemoglobin POC ABG HHb (Measured) ABG Methemoglobin ABG O2 Capacity Quirino Test Yes ABG Potassium 4.5 VBG pH 7.30 L VBG pCO2 29 L VBG HCO3 15.6 VBG Total CO2 15.2 L VBG O2 Sat (Calc) 69.7 H VBG Base Excess -10.7 L VBG Potassium 3.4 L A-a O2 Difference 558.0 Hgb O2 Saturation Sodium 136.0 140.0 Chloride 106.0 114.0 H Glucose 118 H 96 Lactate 6.9 H* 5.6 H* Vent Mode A/c Mechanical Rate 14 FiO2 100.0 100.0 Tidal Volume 550 PEEP 5 5 Crit Value Called To Marzena newman Crit Value Called By Crit Value Read Back Y Y Blood Gas Notified Time 1212 1201 Potassium Carbon Dioxide Anion Gap BUN Creatinine Est GFR ( Amer) Est GFR (Non-Af Amer) Random Glucose Lactic Acid Calcium Total Bilirubin AST 1061 H ALT Alkaline Phosphatase Total Protein Albumin Globulin Albumin/Globulin Ratio Procalcitonin Arterial Blood Potassium 4.5 Venous Blood Potassium 3.4 L 10/08/16 10/08/16 10/09/16 12:45 12:45 04:20 WBC 18.1 H RBC 3.29 L Hgb 9.2 L Hct 28.8 L MCV 87.3 D MCH 27.8 MCHC 31.9 L RDW 15.9 H Plt Count 87 L D MPV 8.8 Neut % (Auto) 82.7 H Lymph % (Auto) 9.0 L [place] % (Auto) 3.4 Eos % (Auto) 4.6 H Baso % (Auto) 0.3 Neut # 15.0 H Lymph # 1.6 [place] # 0.6 Eos # 0.8 H Baso # 0.1 Neutrophils % (Manual) 54 Band Neutrophils % 19 H* Lymphocytes % (Manual) 14 L Reactive Lymphs % 3 H Monocytes % (Manual) 9 Myelocytes % 1 H Nucleated RBC % 14 H Smudge Cells Present Platelet Estimate Markedly decreased L Hypochromasia (manual) Slight Anisocytosis (manual) Slight Cactus Cells Slight Acanthocytes (Spur) Moderate pCO2 pO2 HCO3 ABG pH ABG Total CO2 ABG O2 Saturation ABG O2 Content ABG Base Excess ABG Hemoglobin ABG Carboxyhemoglobin POC ABG HHb (Measured) ABG Methemoglobin ABG O2 Capacity Quirino Test ABG Potassium VBG pH VBG pCO2 VBG HCO3 VBG Total CO2 VBG O2 Sat (Calc) VBG Base Excess VBG Potassium A-a O2 Difference Hgb O2 Saturation Sodium Chloride Glucose Lactate Vent Mode Mechanical Rate FiO2 Tidal Volume PEEP Crit Value Called To Crit Value Called By Crit Value Read Back Blood Gas Notified Time Potassium Carbon Dioxide Anion Gap BUN Creatinine Est GFR ( Amer) Est GFR (Non-Af Amer) Random Glucose Lactic Acid 6.3 H* Calcium Total Bilirubin AST ALT Alkaline Phosphatase Total Protein Albumin Globulin Albumin/Globulin Ratio Procalcitonin 102.51 H Arterial Blood Potassium Venous Blood Potassium 10/09/16 10/09/16 10/09/16 04:20 04:20 04:47 WBC RBC Hgb Hct MCV MCH MCHC RDW Plt Count MPV Neut % (Auto) Lymph % (Auto) [place] % (Auto) Eos % (Auto) Baso % (Auto) Neut # Lymph # [place] # Eos # Baso # Neutrophils % (Manual) Band Neutrophils % Lymphocytes % (Manual) Reactive Lymphs % Monocytes % (Manual) Myelocytes % Nucleated RBC % Smudge Cells Platelet Estimate Hypochromasia (manual) Anisocytosis (manual) Cactus Cells Acanthocytes (Spur) pCO2 61 H pO2 93 HCO3 26.4 ABG pH 7.29 L ABG Total CO2 31.2 H ABG O2 Saturation 98.5 H ABG O2 Content 13.0 L ABG Base Excess 1.9 ABG Hemoglobin 9.6 L ABG Carboxyhemoglobin 1.4 POC ABG HHb (Measured) 1.5 ABG Methemoglobin 1.7 ABG O2 Capacity 13.2 L Quirino Test Yes ABG Potassium VBG pH VBG pCO2 VBG HCO3 VBG Total CO2 VBG O2 Sat (Calc) VBG Base Excess VBG Potassium A-a O2 Difference 544.0 Hgb O2 Saturation 95.3 Sodium 139 Chloride 96 L Glucose Lactate Vent Mode A/c Mechanical Rate 14 FiO2 100.0 Tidal Volume 550 PEEP 5 Crit Value Called To Dr bebeto franklin Crit Value Called By Crit Value Read Back Y Blood Gas Notified Time 447 Potassium 4.0 Carbon Dioxide 28 Anion Gap 19 BUN 59 H Creatinine 5.1 H Est GFR ( Amer) 15 Est GFR (Non-Af Amer) 12 Random Glucose 128 H Lactic Acid 6.0 H* Calcium 6.9 L Total Bilirubin 4.5 H AST 950 H ALT 551 H D Alkaline Phosphatase 172 H D Total Protein 5.3 L Albumin 2.5 L Globulin 2.8 Albumin/Globulin Ratio 0.9 L Procalcitonin Arterial Blood Potassium Venous Blood Potassium Assessment & Plan (1) Hx of CABG Assessment and Plan: The patient had a bout of atrial fibrillation with rapid ventricular response yesterday which was treated with amiodarone This point I think we can DC the amiodarone and continue to watch the patient He can follow with you Status: Acute (2) Acute diffuse ischemia of intestine Status: Acute (3) Acute renal failure Status: Acute (4) Septic shock Status: Acute
[2016-10-09] MEDS: Cefepime 2 GM in Sodium Chloride 0.9% 100 ML IVPB SCH (11:06)
[2016-10-09 11:52] LABS: CREATININE, RANDOM URINE 126.6 mg/dL
[2016-10-09 12:10] LABS: URIC ACID 8.4 mg/Dl (3.5-8.5)
--- NOTE | 2016-10-09 12:22 | RAD ---
HISTORY: Intubated COMPARISON: 10/08/2016 FINDINGS: LUNGS: Opacity at right lung base may reflect subsegmental atelectasis. Followup to rule out new infiltrate. PLEURA: Questionable small left pleural effusion with blunting of costophrenic angle. No evidence of right pleural effusion. No pneumothorax. CARDIOVASCULAR: Sternotomy wires. Endotracheal tube unchanged. Normal heart size. Nasogastric tube noted though distal aspect not visualized. OSSEOUS STRUCTURES: No significant abnormalities. VISUALIZED UPPER ABDOMEN: Normal. OTHER FINDINGS: None. IMPRESSION: New opacity at right base may reflect subsegmental atelectasis. Followup advised. Possible small left pleural effusion. ET tube unchanged.
[2016-10-09 14:30] LABS: HEPATITIS B SURFACE AG NEGATIVE (NEGATIVE)
[2016-10-09 14:35] LABS: HEPATITIS B CORE AB NEGATIVE (NEGATIVE)
[2016-10-10] MEDS: metroNIDAZOLE 500mg/100ml NS 100 ML IVPB SCH ×3 (01:00→16:45)
[2016-10-10] MEDS: Sodium Bicarbonate 8.4% 150 MEQ in Dextrose 5% In Water 1,000 ML IV SCH ×2 (01:15→07:24)
[2016-10-10 05:27] LABS: ARTERIAL BLOOD GAS O2 SAT 98.8 % (95-98)
[2016-10-10 05:30] LABS: ALB/GLOB RATIO 0.8 (1.0-2.1); ALBUMIN 2.2 g/dL (3.5-5.0); HEMOGLOBIN 8.3 g/dL (12.0-18.0); MAGNESIUM 1.9 MG/DL (1.6-2.3); MEAN CELL VOLUME 86.7 fl (80.0-94.0); MEAN CORPUSCULAR HEMOGLOBIN 27.2 pg (27.0-31.0); MEAN CORPUSCULAR HGB CONC 31.4 g/dL (33.0-37.0); MEAN PLATELET VOLUME 8.1 fl (7.2-11.7); RBC 3.05 Mil/uL (4.40-5.90); RED CELL DISTRIBUTION WIDTH 16.2 % (11.5-14.5)
[2016-10-10 05:38] LABS: PLATELET COUNT 46 K/uL (130-400)
[2016-10-10 05:47] LABS: INR 1.7 (0.9-1.2); PARTIAL THROMBOPLASTIN TIME 44.2 Seconds (25.6-37.1); PROTHROMBIN TIME 19.7 Seconds (9.8-13.1)
[2016-10-10 06:10] LABS: ABG ALLEN TEST YES; ARTERIAL BLOOD GAS HCO3 34.5 mmol/L (21-28); ARTERIAL BLOOD GAS HEMOGLOBIN 8.6 g/dL (11.7-17.4); ARTERIAL BLOOD GAS PCO2 50 mm/Hg (35-45); ARTERIAL BLOOD GAS PH 7.48 (7.35-7.45); ARTERIAL BLOOD GAS PO2 85 mm/Hg (80-100)
[2016-10-10 06:11] LABS: ARTERIAL BLOOD GAS FIO2 100 %; ARTERIAL BLOOD GAS O2 CAPACITY 11.8 mL/dL (16-24); ARTERIAL BLOOD GAS O2 CONTENT 11.7 ML/dL (15-23); ARTERIAL BLOOD GAS O2 SAT 98.8 % (95-98); ARTERIAL BLOOD GAS TCO2 38.7 mmol/L (22-28)
[2016-10-10 06:49] LABS: MONO % 1.8 % (0.0-10.0)
[2016-10-10 06:51] LABS: BASO % 0.3 % (0.0-2.0); EOS % 3.9 % (0.0-4.0); LYMPH % 11.4 % (20.0-40.0); NEUT # 16.6 K/uL (1.8-7.0); NEUT % 82.6 % (50.0-75.0); NRBC % 2.9 % (0.0-0.0)
[2016-10-10 06:52] LABS: BASO # 0.1 K/uL (0.0-0.2); EOS # 0.8 K/uL (0.0-0.7); LYMPH # 2.3 K/uL (1.0-4.3); MONO # 0.4 K/uL (0.0-0.8)
[2016-10-10 06:54] LABS: BANDS 8 % (0-2); TOTAL CELLS COUNTED 100
[2016-10-10 06:55] LABS: EOSINOPHIL 3 % (0-7); LYMPHOCYTE 8 % (20-50); MONOCYTE 5 % (0-10)
[2016-10-10 06:56] LABS: NUCLEATED RED BLOOD CELL 6 % (0-0); PLATELET ESTIMATE DECREASED (NORMAL)
[2016-10-10 06:57] LABS: ANISOCYTOSIS SLIGHT; HYPOCHROMIC SLIGHT
[2016-10-10 06:59] LABS: NEUTROPHIL 76 % (42-75)
[2016-10-10] MEDS: Cefepime 2 GM in Sodium Chloride 0.9% 100 ML IVPB SCH (08:28)
[2016-10-10] MEDS: Fentanyl Citrate 2,500 MCG in Dextrose 5% In Water 200 ML IV SCH ×2 (08:28→18:26)
--- NOTE | 2016-10-10 08:31 | CP.PCM.PN ---
Subjective - Date & Time of Evaluation Date of Evaluation: 10/10/16 Time of Evaluation: 08:17 - Subjective Subjective: Surgery Progress note. Dr. Anderson Pt remains intubated and on vent: PRVC 18, TV 550, PEEP 5, FiO2 100%. NG tube in place to suction. Taylor in place. Pt does not respond to verbal commands. Grimaces upon abdominal palpation. Objective - Vital Signs/Intake and Output Vital Signs (last 24 hours): Temp Pulse Resp BP Pulse Ox 98.8 F 67 18 128/48 L 100 10/10/16 08:00 10/10/16 08:00 10/10/16 08:00 10/10/16 08:00 10/10/16 08:00 Intake and Output: 10/10/16 10/10/16 06:59 18:59 Intake Total 3056 400 Output Total 135 Balance 2921 400 - Medications Medications: Current Medications Acetaminophen (Tylenol 325mg Tab) 650 mg PO Q6 PRN PRN Reason: Fever >100.4 F Famotidine (Pepcid) 40 mg IVP DAILY [facility] Last Admin: 10/09/16 09:26 Dose: 40 mg Heparin Sodium (Porcine) (Heparin) 5,000 units SC Q8 [facility] PRN Reason: Protocol Last Admin: 10/10/16 01:00 Dose: 5,000 units Fentanyl Citrate 2,500 mcg/ (Dextrose) 250 mls @ 0 mls/hr IV .Q0M [facility]; Per Protocol PRN Reason: Protocol Last Admin: 10/09/16 22:00 Dose: 3 mcg/kg/hr, 25.85 mls/hr Metronidazole (Flagyl 500mg/100ml Ns) 100 mls @ 100 mls/hr IVPB Q8 [facility] Last Admin: 10/10/16 01:00 Dose: 100 mls/hr Cefepime HCl 2 gm/ Sodium (Chloride) 100 mls @ 100 mls/hr IVPB DAILY [facility] Last Admin: 10/09/16 11:06 Dose: 100 mls/hr Morphine Sulfate (Morphine) 2 mg IVP Q6 PRN PRN Reason: Pain, moderate (4-7) Ondansetron HCl (Zofran Inj) 4 mg IVP Q6 PRN PRN Reason: Nausea/Vomiting - Labs Labs: 10/10/16 04:20 07/12/17 04:20 PT 19.7 Seconds (9.8-13.1) H 10/10/16 04:20 INR 1.7 (0.9-1.2) H 10/10/16 04:20 APTT 44.2 Seconds (25.6-37.1) H 10/10/16 04:20 - Head Exam Head Exam: ATRAUMATIC, NORMAL INSPECTION, NORMOCEPHALIC - Eye Exam Additional comments: No purposeful eye movements - ENT Exam ENT Exam: Mucous Membranes Moist - Respiratory Exam Additional comments: Intubated and on vent: PRVC 18, TV 550, PEEP 5, FiO2 100% - GI/Abdominal Exam Additional comments: Distended, Grimaces on palpation. Midline incision intact with robby, skin edges well approximated. - Extremities Exam Extremities Exam: Normal Inspection. absent: Calf Tenderness - Neurological Exam Additional comments: Does not respond to verbal stimuli. Intubated and sedated Assessment and Plan - Assessment and Plan (Free Text) Assessment: 51yo M with Mesenteric Ischemia. S/p Ex lap with examination of entire bowel 10/06. POD 4 - Ischemic entire small bowel and right colon - Acute Kidney Injury. Creatinine elevated. UOP 10cc/12hrs. Repeat HD last night with 1L removed - Thrombocytopenia - Hyperbilirubinemia worse - Leukocytosis worse - poor prognosis - Continue to medically optimize - Strict I&Os - NGT to suction - Continue ABX - No further surgical intervention Further recs as per Dr. Justin Brunson PGY1
[2016-10-10 08:52] LABS: ARTERIAL BLOOD GAS PH 7.29 (7.35-7.45)
[2016-10-10 08:53] LABS: ARTERIAL BLOOD GAS HCO3 26.4 mmol/L (21-28); ARTERIAL BLOOD GAS PCO2 61 mm/Hg (35-45); ARTERIAL BLOOD GAS PO2 93 mm/Hg (80-100)
[2016-10-10 08:54] LABS: ARTERIAL BLOOD GAS HEMOGLOBIN 9.6 g/dL (11.7-17.4)
[2016-10-10 08:55] LABS: ARTERIAL BLOOD GAS O2 CAPACITY 13.2 mL/dL (16-24)
[2016-10-10 08:56] LABS: ARTERIAL BLOOD GAS TCO2 31.2 mmol/L (22-28)
--- NOTE | 2016-10-10 10:08 | CP.PCM.PN ---
Subjective - Date & Time of Evaluation Date of Evaluation: 10/10/16 Time of Evaluation: 10:11 - Subjective Subjective: STILL INTUBATED AND BEING VENTILATED RESPONDS TO PAINFUL STIMULI O2 SAT-100% ON 75% O2 Objective - Vital Signs/Intake and Output Vital Signs (last 24 hours): Temp Pulse Resp BP Pulse Ox 98.8 F 67 18 128/48 L 100 10/10/16 08:00 10/10/16 08:00 10/10/16 08:00 10/10/16 08:00 10/10/16 08:00 Intake and Output: 10/10/16 10/10/16 06:59 18:59 Intake Total 3056 650 Output Total 135 Balance 2921 650 - Medications Medications: Current Medications Acetaminophen (Tylenol 325mg Tab) 650 mg PO Q6 PRN PRN Reason: Fever >100.4 F Famotidine (Pepcid) 40 mg IVP DAILY [facility] OF [facility] Last Admin: 10/10/16 08:30 Dose: 40 mg Heparin Sodium (Porcine) (Heparin) 5,000 units SC Q8 [facility] OF [facility] PRN Reason: Protocol Last Admin: 10/10/16 01:00 Dose: 5,000 units Fentanyl Citrate 2,500 mcg/ (Dextrose) 250 mls @ 0 mls/hr IV .Q0M [facility]; Per Protocol PRN Reason: Protocol Last Admin: 10/10/16 08:28 Dose: 3 mcg/kg/hr, 25.85 mls/hr Metronidazole (Flagyl 500mg/100ml Ns) 100 mls @ 100 mls/hr IVPB Q8 [facility] OF [facility] Last Admin: 10/10/16 08:28 Dose: 100 mls/hr Cefepime HCl 2 gm/ Sodium (Chloride) 100 mls @ 100 mls/hr IVPB DAILY [facility] OF [facility] Last Admin: 10/10/16 08:28 Dose: 100 mls/hr Morphine Sulfate (Morphine) 2 mg IVP Q6 PRN PRN Reason: Pain, moderate (4-7) Ondansetron HCl (Zofran Inj) 4 mg IVP Q6 PRN PRN Reason: Nausea/Vomiting - Labs Labs: 10/10/16 04:20 10/10/16 04:20 PT 19.7 Seconds (9.8-13.1) H 10/10/16 04:20 INR 1.7 (0.9-1.2) H 10/10/16 04:20 APTT 44.2 Seconds (25.6-37.1) H 10/10/16 04:20 - Constitutional Appears: Toxic - Head Exam Head Exam: ATRAUMATIC, NORMAL INSPECTION, NORMOCEPHALIC - Eye Exam Eye Exam: EOMI, Normal appearance, PERRL Pupil Exam: NORMAL ACCOMODATION, PERRL - ENT Exam ENT Exam: Mucous Membranes Moist, Normal Exam - Neck Exam Neck Exam: Full ROM, Normal Inspection. absent: Lymphadenopathy - Respiratory Exam Respiratory Exam: Clear to Ausculation Bilateral, NORMAL BREATHING PATTERN - Cardiovascular Exam Cardiovascular Exam: REGULAR RHYTHM, +S1, +S2. absent: Murmur - GI/Abdominal Exam GI & Abdominal Exam: absent: Tenderness Additional comments: SURGICAL DRESSING IN PLACE - Rectal Exam Rectal Exam: NORMAL INSPECTION - Extremities Exam Extremities Exam: Full ROM, Normal Capillary Refill, Normal Inspection. absent : Joint Swelling, Pedal Edema - Back Exam Back Exam: NORMAL INSPECTION - Skin Skin Exam: Dry, Intact, Normal Color, Warm Assessment and Plan - Assessment and Plan (Free Text) Assessment: MULTIORGAN FAILURE Plan: CONTINUE ATTEMPTS TO WEAN OFF VENTILATOR PROGNOSIS IS POOR
--- NOTE | 2016-10-10 10:33 | CP.CCUPN ---
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 Pain is attempted to be controlled with Fentanyl, but patient is still in pain with palpation, but is otherwise sedated an not responding to commands. - Pt remains on vent: PRVC 18, TV 550, FIO2 75%. NG tube suction in place. - Dr. Anderson was seen on rounds. No surgical management is indicated, patients prognosis is poor. - Patient received HD yesterday. 10/10/16 11:13 Critical Care Time Spent (in minutes): 30 CCU Objective - Vital Signs / Intake & Output Vital Signs (Last 4 hours): Vital Signs Temp Pulse Resp BP Pulse Ox 10/10/16 08:00 98.8 F 67 18 128/48 L 100 10/10/16 07:00 68 18 128/48 L 100 Intake and Output (Last 8hrs): Intake & Output 10/09/16 10/10/16 10/10/16 22:59 06:59 14:59 Intake Total 2117 1904 650 Output Total 135 Balance 8 1769 650 Intake: IV 2017 1803 650 Intake, Piggyback 100 100 Output: Gastric Amount 125 Stomach 125 Urine 10 Urethral (Taylor) 10 - Physical Exam Head: Positive for: Atraumatic, Normocephalic Pupils: Positive for: PERRL Conjunctiva: Positive for: Normal. Negative for: Icteric Ears: Positive for: Normal Mouth: Positive for: Moist Mucous Membranes Nose (External): Positive for: Atraumatic Nose (Internal): Positive for: Normal Inspection Neck: Positive for: Trachea Midline. Negative for: JVD Respiratory/Chest: Positive for: Decreased Breath Sounds, Rhonchi Cardiovascular: Positive for: Regular Rate and Rhythm, Tachycardic. Negative for: Murmurs, Rub Abdomen: Positive for: Tenderness (Generalized tenderness to palpate. [place] seen intact on mid epigastrium, no pus or discharge noted), Distention, Guarding , Other (Abd dressing intact and dry, no BS heard. ) Genitourinary Male: Positive for: Testicle Swelling Upper Extremity: Positive for: Normal Inspection Lower Extremity: Positive for: Edema, Cyanosis, Other (Right dorsalis pedal pulse is absent on right foot. Cold compared to the left foot. Decreased capilary refill on right foot.) Neurological: Positive for: Other (on ventilator, sedated, no response to verbal stimuli) Skin: Positive for: Warm. Negative for: Rashes Psychiatric: Positive for: Other (sedated) - Medications Active Medications: Active Medications Generic Name Dose Route Start Last Admin Trade Name Freq PRN Reason Stop Dose Admin Acetaminophen 650 mg 10/06/16 15:27 Tylenol 325mg Tab PO Q6 PRN Fever >100.4 F Famotidine 40 mg 10/08/16 11:00 10/10/16 08:30 Pepcid IVP 40 mg DAILY [facility] Administration Heparin Sodium (Porcine) 5,000 units 10/08/16 11:00 10/10/16 01:00 Heparin SC 5,000 units Q8 [facility] Administration Protocol Fentanyl Citrate 2,500 mcg/ 250 mls @ 0 mls/hr 10/08/16 11:15 10/10/16 08:28 Dextrose IV 3 mcg/kg/hr .Q0M [facility] 25.85 mls/hr Protocol Administration Per Protocol Metronidazole 100 mls @ 100 mls/hr 10/08/16 11:15 10/10/16 08:28 Flagyl 500mg/100ml Ns IVPB 100 mls/hr Q8 [facility] Administration Cefepime HCl 2 gm/ Sodium 100 mls @ 100 mls/hr 10/09/16 11:15 10/10/16 08:28 Chloride IVPB 100 mls/hr DAILY [facility] Administration Morphine Sulfate 2 mg 10/08/16 09:00 Morphine IVP Q6 PRN Pain, moderate (4-7) Ondansetron HCl 4 mg 10/06/16 15:27 Zofran Inj IVP Q6 PRN Nausea/Vomiting - Patient Studies Lab Studies: Lab Studies 10/10/16 10/10/16 10/10/16 Range/Units 05:10 04:20 04:20 WBC (4.8-10.8) K/uL RBC (4.40-5.90) Mil/uL Hgb (12.0-18.0) g/dL Hct (35.0-51.0) % MCV (80.0-94.0) fl MCH (27.0-31.0) pg MCHC (33.0-37.0) g/dL RDW (11.5-14.5) % Plt Count (130-400) K/uL MPV (7.2-11.7) fl Neut % (Auto) (50.0-75.0) % Lymph % (Auto) (20.0-40.0) % Stewart % (Auto) (0.0-10.0) % Eos % (Auto) (0.0-4.0) % Baso % (Auto) (0.0-2.0) % Neut # (1.8-7.0) K/uL Lymph # (1.0-4.3) K/uL Stewart # (0.0-0.8) K/uL Eos # (0.0-0.7) K/uL Baso # (0.0-0.2) K/uL Neutrophils % (Manual) (42-75) % Band Neutrophils % (0-2) % Lymphocytes % (Manual) (20-50) % Monocytes % (Manual) (0-10) % Eosinophils % (Manual) (0-7) % Nucleated RBC % (0-0) % Platelet Estimate (NORMAL) Hypochromasia (manual) Anisocytosis (manual) PT 19.7 H (9.8-13.1) Seconds INR 1.7 H (0.9-1.2) APTT 44.2 H (25.6-37.1) Seconds Puncture Site right radial pCO2 50 H (35-45) mm/Hg pO2 85 (80-100) mm/Hg HCO3 34.5 H (21-28) mmol/L ABG pH 7.48 H (7.35-7.45) ABG Total CO2 38.7 H (22-28) mmol/L ABG O2 Saturation 98.8 H (95-98) % ABG O2 Content 11.7 L (15-23) ML/dL ABG Base Excess 12.3 H (-2.0-3.0) mmol/L ABG Hemoglobin 8.6 L (11.7-17.4) g/dL ABG Carboxyhemoglobin 1.4 (0.5-1.5) % POC ABG HHb (Measured) 1.2 (0.0-5.0) % ABG Methemoglobin 1.5 (0.0-3.0) % ABG O2 Capacity 11.8 L (16-24) mL/dL Quirino Test Yes A-a O2 Difference 566.0 mm/Hg Hgb O2 Saturation 95.9 (95.0-98.0) % Vent Mode Ac Mechanical Rate 18 FiO2 100 % Tidal Volume 550 PEEP 5 Blood Gas Notified Time 527 Sodium 136 (132-148) mmol/l Potassium 3.5 L (3.6-5.0) MMOL/L Chloride 90 L (98-107) mmol/L Carbon Dioxide 36 H (22-30) mmol/L Anion Gap 14 (10-20) BUN 47 H (9-20) mg/dl Creatinine 4.6 H (0.8-1.5) mg/dL Est GFR ( Amer) 16 Est GFR (Non-Af Amer) 14 Random Glucose 140 H (75-110) mg/dL Uric Acid (3.5-8.5) mg/Dl Calcium 7.0 L (8.4-10.2) mg/dL Phosphorus 4.5 (2.5-4.5) mg/dl Magnesium 1.9 (1.6-2.3) MG/DL Total Bilirubin 4.4 H (0.2-1.3) mg/dl AST 556 H D (17-59) U/L ALT 321 H D (21-72) U/L Alkaline Phosphatase 161 H (38-126) U/L Total Creatine Kinase (55-170) U/L Total Protein 5.0 L (6.3-8.2) G/DL Albumin 2.2 L (3.5-5.0) g/dL Globulin 2.8 (2.2-3.9) gm/dL Albumin/Globulin Ratio 0.8 L (1.0-2.1) Urine Osmolality (300-1000) mosm/kg Ur Random Creatinine mg/dL Ur Random Sodium mmol/L Hep Bs Antigen (NEGATIVE) Hep Bs Antibody (NEGATIVE) Hep B Core IgM Ab (NEGATIVE) 10/10/16 10/09/16 10/09/16 Range/Units 04:20 11:36 11:29 WBC 20.0 H (4.8-10.8) K/uL RBC 3.05 L (4.40-5.90) Mil/uL Hgb 8.3 L (12.0-18.0) g/dL Hct 26.4 L (35.0-51.0) % MCV 86.7 (80.0-94.0) fl MCH 27.2 (27.0-31.0) pg MCHC 31.4 L (33.0-37.0) g/dL RDW 16.2 H (11.5-14.5) % Plt Count 46 L D (130-400) K/uL MPV 8.1 (7.2-11.7) fl Neut % (Auto) 82.6 H (50.0-75.0) % Lymph % (Auto) 11.4 L (20.0-40.0) % Stewart % (Auto) 1.8 (0.0-10.0) % Eos % (Auto) 3.9 (0.0-4.0) % Baso % (Auto) 0.3 (0.0-2.0) % Neut # 16.6 H (1.8-7.0) K/uL Lymph # 2.3 (1.0-4.3) K/uL Stewart # 0.4 (0.0-0.8) K/uL Eos # 0.8 H (0.0-0.7) K/uL Baso # 0.1 (0.0-0.2) K/uL Neutrophils % (Manual) 76 H (42-75) % Band Neutrophils % 8 H (0-2) % Lymphocytes % (Manual) 8 L (20-50) % Monocytes % (Manual) 5 (0-10) % Eosinophils % (Manual) 3 (0-7) % Nucleated RBC % 6 H (0-0) % Platelet Estimate Decreased L (NORMAL) Hypochromasia (manual) Slight Anisocytosis (manual) Slight PT (9.8-13.1) Seconds INR (0.9-1.2) APTT (25.6-37.1) Seconds Puncture Site pCO2 (35-45) mm/Hg pO2 (80-100) mm/Hg HCO3 (21-28) mmol/L ABG pH (7.35-7.45) ABG Total CO2 (22-28) mmol/L ABG O2 Saturation (95-98) % ABG O2 Content (15-23) ML/dL ABG Base Excess (-2.0-3.0) mmol/L ABG Hemoglobin (11.7-17.4) g/dL ABG Carboxyhemoglobin (0.5-1.5) % POC ABG HHb (Measured) (0.0-5.0) % ABG Methemoglobin (0.0-3.0) % ABG O2 Capacity (16-24) mL/dL Quirino Test A-a O2 Difference mm/Hg Hgb O2 Saturation (95.0-98.0) % Vent Mode Mechanical Rate FiO2 % Tidal Volume PEEP Blood Gas Notified Time Sodium (132-148) mmol/l Potassium (3.6-5.0) MMOL/L Chloride (98-107) mmol/L Carbon Dioxide (22-30) mmol/L Anion Gap (10-20) BUN (9-20) mg/dl Creatinine (0.8-1.5) mg/dL Est GFR ( Amer) Est GFR (Non-Af Amer) Random Glucose (75-110) mg/dL Uric Acid 8.4 (3.5-8.5) mg/Dl Calcium (8.4-10.2) mg/dL Phosphorus (2.5-4.5) mg/dl Magnesium (1.6-2.3) MG/DL Total Bilirubin (0.2-1.3) mg/dl AST (17-59) U/L ALT (21-72) U/L Alkaline Phosphatase (38-126) U/L Total Creatine Kinase 3949 H (55-170) U/L Total Protein (6.3-8.2) G/DL Albumin (3.5-5.0) g/dL Globulin (2.2-3.9) gm/dL Albumin/Globulin Ratio (1.0-2.1) Urine Osmolality 341 (300-1000) mosm/kg Ur Random Creatinine 126.6 mg/dL Ur Random Sodium 23 mmol/L Hep Bs Antigen (NEGATIVE) Hep Bs Antibody (NEGATIVE) Hep B Core IgM Ab (NEGATIVE) 10/09/16 10/08/16 10/08/16 Range/Units 04:47 21:44 21:44 WBC (4.8-10.8) K/uL RBC (4.40-5.90) Mil/uL Hgb (12.0-18.0) g/dL Hct (35.0-51.0) % MCV (80.0-94.0) fl MCH (27.0-31.0) pg MCHC (33.0-37.0) g/dL RDW (11.5-14.5) % Plt Count (130-400) K/uL MPV (7.2-11.7) fl Neut % (Auto) (50.0-75.0) % Lymph % (Auto) (20.0-40.0) % Stewart % (Auto) (0.0-10.0) % Eos % (Auto) (0.0-4.0) % Baso % (Auto) (0.0-2.0) % Neut # (1.8-7.0) K/uL Lymph # (1.0-4.3) K/uL Stewart # (0.0-0.8) K/uL Eos # (0.0-0.7) K/uL Baso # (0.0-0.2) K/uL Neutrophils % (Manual) (42-75) % Band Neutrophils % (0-2) % Lymphocytes % (Manual) (20-50) % Monocytes % (Manual) (0-10) % Eosinophils % (Manual) (0-7) % Nucleated RBC % (0-0) % Platelet Estimate (NORMAL) Hypochromasia (manual) Anisocytosis (manual) PT (9.8-13.1) Seconds INR (0.9-1.2) APTT (25.6-37.1) Seconds Puncture Site Rr pCO2 61 H (35-45) mm/Hg pO2 93 (80-100) mm/Hg HCO3 26.4 (21-28) mmol/L ABG pH 7.29 L (7.35-7.45) ABG Total CO2 31.2 H (22-28) mmol/L ABG O2 Saturation 98.8 H (95-98) % ABG O2 Content 13.0 L (15-23) ML/dL ABG Base Excess 1.9 (-2.0-3.0) mmol/L ABG Hemoglobin 9.6 L (11.7-17.4) g/dL ABG Carboxyhemoglobin (0.5-1.5) % POC ABG HHb (Measured) 1.2 (0.0-5.0) % ABG Methemoglobin 1.7 (0.0-3.0) % ABG O2 Capacity 13.2 L (16-24) mL/dL Quirino Test A-a O2 Difference 544.0 mm/Hg Hgb O2 Saturation 95.3 (95.0-98.0) % Vent Mode Mechanical Rate 14 FiO2 % Tidal Volume PEEP Blood Gas Notified Time Sodium (132-148) mmol/l Potassium (3.6-5.0) MMOL/L Chloride (98-107) mmol/L Carbon Dioxide (22-30) mmol/L Anion Gap (10-20) BUN (9-20) mg/dl Creatinine (0.8-1.5) mg/dL Est GFR ( Amer) Est GFR (Non-Af Amer) Random Glucose (75-110) mg/dL Uric Acid (3.5-8.5) mg/Dl Calcium (8.4-10.2) mg/dL Phosphorus (2.5-4.5) mg/dl Magnesium (1.6-2.3) MG/DL Total Bilirubin (0.2-1.3) mg/dl AST (17-59) U/L ALT (21-72) U/L Alkaline Phosphatase (38-126) U/L Total Creatine Kinase (55-170) U/L Total Protein (6.3-8.2) G/DL Albumin (3.5-5.0) g/dL Globulin (2.2-3.9) gm/dL Albumin/Globulin Ratio (1.0-2.1) Urine Osmolality (300-1000) mosm/kg Ur Random Creatinine mg/dL Ur Random Sodium mmol/L Hep Bs Antigen Negative (NEGATIVE) Hep Bs Antibody Negative (NEGATIVE) Hep B Core IgM Ab Negative (NEGATIVE) Laboratory Results - last 24 hr 10/08/16 10/08/16 10/09/16 21:44 21:44 04:47 WBC RBC Hgb Hct MCV MCH MCHC RDW Plt Count MPV Neut % (Auto) Lymph % (Auto) Stewart % (Auto) Eos % (Auto) Baso % (Auto) Neut # Lymph # Stewart # Eos # Baso # Neutrophils % (Manual) Band Neutrophils % Lymphocytes % (Manual) Monocytes % (Manual) Eosinophils % (Manual) Nucleated RBC % Platelet Estimate Hypochromasia (manual) Anisocytosis (manual) PT INR APTT Puncture Site Rr pCO2 61 H pO2 93 HCO3 26.4 ABG pH 7.29 L ABG Total CO2 31.2 H ABG O2 Saturation 98.8 H ABG O2 Content 13.0 L ABG Base Excess 1.9 ABG Hemoglobin 9.6 L ABG Carboxyhemoglobin POC ABG HHb (Measured) 1.2 ABG Methemoglobin 1.7 ABG O2 Capacity 13.2 L Quirino Test A-a O2 Difference 544.0 Hgb O2 Saturation 95.3 Vent Mode Mechanical Rate 14 FiO2 Tidal Volume PEEP Blood Gas Notified Time Sodium Potassium Chloride Carbon Dioxide Anion Gap BUN Creatinine Est GFR ( Amer) Est GFR (Non-Af Amer) Random Glucose Uric Acid Calcium Phosphorus Magnesium Total Bilirubin AST ALT Alkaline Phosphatase Total Creatine Kinase Total Protein Albumin Globulin Albumin/Globulin Ratio Urine Osmolality Ur Random Creatinine Ur Random Sodium Hep Bs Antigen Negative Hep Bs Antibody Negative Hep B Core IgM Ab Negative 10/09/16 10/09/16 10/10/16 11:29 11:36 04:20 WBC 20.0 H RBC 3.05 L Hgb 8.3 L Hct 26.4 L MCV 86.7 MCH 27.2 MCHC 31.4 L RDW 16.2 H Plt Count 46 L D MPV 8.1 Neut % (Auto) 82.6 H Lymph % (Auto) 11.4 L Stewart % (Auto) 1.8 Eos % (Auto) 3.9 Baso % (Auto) 0.3 Neut # 16.6 H Lymph # 2.3 Stewart # 0.4 Eos # 0.8 H Baso # 0.1 Neutrophils % (Manual) 76 H Band Neutrophils % 8 H Lymphocytes % (Manual) 8 L Monocytes % (Manual) 5 Eosinophils % (Manual) 3 Nucleated RBC % 6 H Platelet Estimate Decreased L Hypochromasia (manual) Slight Anisocytosis (manual) Slight PT INR APTT Puncture Site pCO2 pO2 HCO3 ABG pH ABG Total CO2 ABG O2 Saturation ABG O2 Content ABG Base Excess ABG Hemoglobin ABG Carboxyhemoglobin POC ABG HHb (Measured) ABG Methemoglobin ABG O2 Capacity Quirino Test A-a O2 Difference Hgb O2 Saturation Vent Mode Mechanical Rate FiO2 Tidal Volume PEEP Blood Gas Notified Time Sodium Potassium Chloride Carbon Dioxide Anion Gap BUN Creatinine Est GFR ( Amer) Est GFR (Non-Af Amer) Random Glucose Uric Acid 8.4 Calcium Phosphorus Magnesium Total Bilirubin AST ALT Alkaline Phosphatase Total Creatine Kinase 3949 H Total Protein Albumin Globulin Albumin/Globulin Ratio Urine Osmolality 341 Ur Random Creatinine 126.6 Ur Random Sodium 23 Hep Bs Antigen Hep Bs Antibody Hep B Core IgM Ab 10/10/16 10/10/16 10/10/16 04:20 04:20 05:10 WBC RBC Hgb Hct MCV MCH MCHC RDW Plt Count MPV Neut % (Auto) Lymph % (Auto) Stewart % (Auto) Eos % (Auto) Baso % (Auto) Neut # Lymph # Stewart # Eos # Baso # Neutrophils % (Manual) Band Neutrophils % Lymphocytes % (Manual) Monocytes % (Manual) Eosinophils % (Manual) Nucleated RBC % Platelet Estimate Hypochromasia (manual) Anisocytosis (manual) PT 19.7 H INR 1.7 H APTT 44.2 H Puncture Site right radial pCO2 50 H pO2 85 HCO3 34.5 H ABG pH 7.48 H ABG Total CO2 38.7 H ABG O2 Saturation 98.8 H ABG O2 Content 11.7 L ABG Base Excess 12.3 H ABG Hemoglobin 8.6 L ABG Carboxyhemoglobin 1.4 POC ABG HHb (Measured) 1.2 ABG Methemoglobin 1.5 ABG O2 Capacity 11.8 L Quirino Test Yes A-a O2 Difference 566.0 Hgb O2 Saturation 95.9 Vent Mode Ac Mechanical Rate 18 FiO2 100 Tidal Volume 550 PEEP 5 Blood Gas Notified Time 527 Sodium 136 Potassium 3.5 L Chloride 90 L Carbon Dioxide 36 H Anion Gap 14 BUN 47 H Creatinine 4.6 H Est GFR ( Amer) 16 Est GFR (Non-Af Amer) 14 Random Glucose 140 H Uric Acid Calcium 7.0 L Phosphorus 4.5 Magnesium 1.9 Total Bilirubin 4.4 H AST 556 H D ALT 321 H D Alkaline Phosphatase 161 H Total Creatine Kinase Total Protein 5.0 L Albumin 2.2 L Globulin 2.8 Albumin/Globulin Ratio 0.8 L Urine Osmolality Ur Random Creatinine Ur Random Sodium Hep Bs Antigen Hep Bs Antibody Hep B Core IgM Ab Critical Care Progress Note - Ventilator Checklist PUD Prophalyxis: Yes DVT Prophylaxis: Yes Oral Care with Chlorhexidine Gluconate {CHG}: Yes - Vent Settings MODE:: PRVC TIDAL VOLUME:: 550 RESP RATE:: 18 FIO2:: 75 PEEP:: 5 Assessment/Plan - Assessment and Plan (Free Text) Assessment: 1) Septic Shock, secondary to ischemic bowl - Continues to be intubated - Pain controlled with continuous fentanyl drip - Pt is not a candidate for surgery, as per Dr. Anderson seen at bedside. Continue with supportive care - Cont w/ Cefapime and IV Flagyl significant bandemia was noted - Lactic acid :6.0, Procalcitonin : 102.51 - Poor prognosis 2.) Elevated liver enzymes most likely secondary to mesenteric ischemia - AST:556, ALT:321 - GI consult appreciated - Continue to monitor 3. Renal failure secondary to decrease perfusion - BUN:47, Creatinine:4.6 - Received HD yesterday, scheduled for next one tommorw - Dr. Zavaleta on consult 4) Resp failure secondary to bilateral effusion - Currently intubated - FI02 has been decreased to 75% and patient is continuing to saturate 100%. 4) Metabolic Alkalosis w/ Respiratory acidosis PH: 7.48, PCO2: 50, Bicarb:34.5 - bicarb supplement has been d/c 5) A Fib ( Resolved) - Resolved after receiving amiodarone. - Cardio consult appreciated 6) DVT prophylaxis - Heparin <Corey Robledo - Last Filed: 10/10/16 18:55> Assessment/Plan - Assessment and Plan (Free Text) Plan: Attestation: Patient seen and examined at the bedside with Resident Dr. Ros Carbone; and I agree with his outline of plans and management as documented and discussed on AM rounds reflecting my review of all applicable clinical data, and participation in the care of the patient throughout the day in ICU; today, October 10, 2016. Discussed with friends of patient who have been in community healthta with relatives in [place]. They understand the poor prognostic nature of his disease, and have inquired as to possible withdrawal of life support. Will titrate Fenatnyl so that patient can be conscious and allow him to interact with family via cellphone regarding further interventions and support.
--- NOTE | 2016-10-10 11:11 | CP.PCM.PN ---
Subjective - Date & Time of Evaluation Date of Evaluation: 10/10/16 Time of Evaluation: 11:08 - Subjective Subjective: Patient remained on ventilator Reported that he is responding to deep pain stimuli Urine output remained poor Physical exam Chest no significant rales Abdomen tender and status post surgery Extremity trace edema Impression and plan Lab reviewed improving somewhat liver function test Leukocytosis Multiorgan failure the lung and the kidney and the liver and possible sepsis All related to gangrene of the intestine Continue hemodialysis for tomorrow Prognosis overall poor Objective - Vital Signs/Intake and Output Vital Signs (last 24 hours): Temp Pulse Resp BP Pulse Ox 98.8 F 67 18 128/48 L 100 10/10/16 08:00 10/10/16 08:00 10/10/16 08:00 10/10/16 08:00 10/10/16 08:00 Intake and Output: 10/10/16 10/10/16 06:59 18:59 Intake Total 3056 650 Output Total 135 Balance 2921 650 - Medications Medications: Current Medications Acetaminophen (Tylenol 325mg Tab) 650 mg PO Q6 PRN PRN Reason: Fever >100.4 F Famotidine (Pepcid) 40 mg IVP DAILY [facility] Last Admin: 10/10/16 08:30 Dose: 40 mg Heparin Sodium (Porcine) (Heparin) 5,000 units SC Q8 [facility] PRN Reason: Protocol Last Admin: 10/10/16 01:00 Dose: 5,000 units Fentanyl Citrate 2,500 mcg/ (Dextrose) 250 mls @ 0 mls/hr IV .Q0M [facility]; Per Protocol PRN Reason: Protocol Last Admin: 10/10/16 08:28 Dose: 3 mcg/kg/hr, 25.85 mls/hr Metronidazole (Flagyl 500mg/100ml Ns) 100 mls @ 100 mls/hr IVPB Q8 [facility] Last Admin: 10/10/16 08:28 Dose: 100 mls/hr Cefepime HCl 2 gm/ Sodium (Chloride) 100 mls @ 100 mls/hr IVPB DAILY [facility] Last Admin: 10/10/16 08:28 Dose: 100 mls/hr Morphine Sulfate (Morphine) 2 mg IVP Q6 PRN PRN Reason: Pain, moderate (4-7) Ondansetron HCl (Zofran Inj) 4 mg IVP Q6 PRN PRN Reason: Nausea/Vomiting - Labs Labs: 10/10/16 04:20 10/10/16 04:20 PT 19.7 Seconds (9.8-13.1) H 10/10/16 04:20 INR 1.7 (0.9-1.2) H 10/10/16 04:20 APTT 44.2 Seconds (25.6-37.1) H 10/10/16 04:20 Assessment and Plan (1) Acute renal failure (ARF) Status: Acute
--- NOTE | 2016-10-10 11:19 | CP.PCM.PN ---
Subjective - Date & Time of Evaluation Date of Evaluation: 10/10/16 Time of Evaluation: 11:00 - Subjective Subjective: Pt remains intubated on Mech Vent responds to pain- grimaces Sedated- on Fentanyl drip Poor prognosis A friend had notified pt's family in [place] regarding pt's condition Objective - Vital Signs/Intake and Output Vital Signs (last 24 hours): Temp Pulse Resp BP Pulse Ox 98.8 F 67 18 128/48 L 100 10/10/16 08:00 10/10/16 08:00 10/10/16 08:00 10/10/16 08:00 10/10/16 08:00 Intake and Output: 10/10/16 10/10/16 06:59 18:59 Intake Total 3056 650 Output Total 135 Balance 2921 650 - Medications Medications: Current Medications Acetaminophen (Tylenol 325mg Tab) 650 mg PO Q6 PRN PRN Reason: Fever >100.4 F Famotidine (Pepcid) 40 mg IVP DAILY [facility] Last Admin: 10/10/16 08:30 Dose: 40 mg Heparin Sodium (Porcine) (Heparin) 5,000 units SC Q8 [facility] PRN Reason: Protocol Last Admin: 10/10/16 01:00 Dose: 5,000 units Fentanyl Citrate 2,500 mcg/ (Dextrose) 250 mls @ 0 mls/hr IV .Q0M [facility]; Per Protocol PRN Reason: Protocol Last Admin: 10/10/16 08:28 Dose: 3 mcg/kg/hr, 25.85 mls/hr Metronidazole (Flagyl 500mg/100ml Ns) 100 mls @ 100 mls/hr IVPB Q8 [facility] Last Admin: 10/10/16 08:28 Dose: 100 mls/hr Cefepime HCl 2 gm/ Sodium (Chloride) 100 mls @ 100 mls/hr IVPB DAILY [facility] Last Admin: 10/10/16 08:28 Dose: 100 mls/hr Morphine Sulfate (Morphine) 2 mg IVP Q6 PRN PRN Reason: Pain, moderate (4-7) Ondansetron HCl (Zofran Inj) 4 mg IVP Q6 PRN PRN Reason: Nausea/Vomiting - Labs Labs: 10/10/16 04:20 10/10/16 04:20 PT 19.7 Seconds (9.8-13.1) H 10/10/16 04:20 INR 1.7 (0.9-1.2) H 10/10/16 04:20 APTT 44.2 Seconds (25.6-37.1) H 10/10/16 04:20 - Constitutional Appears: Other (Intubated on Mech vent) - Head Exam Head Exam: NORMAL INSPECTION, NORMOCEPHALIC - Eye Exam Eye Exam: Normal appearance, PERRL - ENT Exam ENT Exam: Mucous Membranes Dry, Normal External Ear Exam - Respiratory Exam Respiratory Exam: Rales, Rhonchi Additional comments: Intubated on Vent - Cardiovascular Exam Cardiovascular Exam: REGULAR RHYTHM, +S1, +S2 - GI/Abdominal Exam GI & Abdominal Exam: Distended, Soft, Tenderness - Extremities Exam Extremities Exam: Pedal Edema - Neurological Exam Additional comments: Sedated, Intubated responds to painful stimuli - grimaces - Skin Skin Exam: Dry, Normal Color Assessment and Plan (1) Acute diffuse ischemia of intestine Status: Acute (2) Septic shock Status: Acute (3) Acute renal failure Status: Acute (4) Shock liver Status: Acute (5) CAD (coronary artery disease) Status: Acute (6) A-fib Status: Acute - Assessment and Plan (Free Text) Assessment: 51 y/o male with PMH CABG 2 weeks ago, back pain, HTN, presented with severe sharp abdominal pain associated with nausea and emesis for two days. In ER, pt found to have intractable abdominal pain, disproportionate to exam. CT showed evidence of mesenteric ischemia/infarction. Seen by surgery in ER and taken to OR for emergent exploratory laparatomy by Dr. Sanchez that showed ischemic small bowel and right colon. No surgical intervention could be done, the patient was closed up and transferred to ICU for medical care. Currently intubated on MV , sedated on Feentanyl, on Bicarb drip, off Levophed, off Amiodarone. Poor Prognosis. No family in the [place] ( pt is from [place]) 1.Septic shock secondary to ischemic bowel, now with Multi-organ Failure Intubated on MV , sedated off levophed drip, IVF cont Fentanyl drip Critically ill with very poor prognosis cont Cefepime and IV Flagyl pulm: Dr Mcconnell consulted 2. Ischemic/Necrotic bowel s/p exploratory laparatomy by general surgery showing necrotic small bowel and right colon No surgical intervention possible at this time Supportive care GI consulted 3.Elevated transaminases likely Shock Liver/decrease perfusion likely secondary to mesenteric ischemia Continue to monitor NGT in place with bloody output 4. GOPI likely due to decrease perfusion Pt started on Hemodialysis on 10/08 Nephrology consult - Dr Claudia Law HD cath placed by Dr Robledo 5. CAD s/p CABG 2 weeks ago Cardio consult : Dr Putnam 6. A Fib with RVR episode resolved received Amiodarone, off drip Cardio consulted DVT prophylaxis SCD Heparin
--- NOTE | 2016-10-10 11:21 | RAD ---
HISTORY: Intubated COMPARISON: 10/09/2016 FINDINGS: LUNGS: Opacity at right base unchanged. Possible very small bilateral pleural effusion. No pneumothorax. PLEURA: As above CARDIOVASCULAR: Normal heart size. Sternotomy wires. ET tube and NG tube unchanged. OSSEOUS STRUCTURES: No significant abnormalities. VISUALIZED UPPER ABDOMEN: Normal. OTHER FINDINGS: None. IMPRESSION: Persistent opacity at right base common nonspecific. Possible very small bilateral pleural effusion. Lines and tubes unchanged.
[2016-10-10] MEDS: Morphine 4 MG/ML VIAL IVP PRN (12:36)
--- NOTE | 2016-10-10 13:20 | CP.PCM.PN ---
Subjective - Date & Time of Evaluation Date of Evaluation: 10/11/16 Time of Evaluation: 13:20 - Subjective Subjective: no overnight events Objective - Vital Signs/Intake and Output Vital Signs (last 24 hours): Temp Pulse Resp BP Pulse Ox 98.8 F 69 18 120/48 L 100 10/10/16 12:00 10/10/16 12:00 10/10/16 12:00 10/10/16 12:00 10/10/16 12:00 Intake and Output: 10/10/16 10/10/16 06:59 18:59 Intake Total 3056 954 Output Total 135 Balance 2921 954 - Medications Medications: Current Medications Acetaminophen (Tylenol 325mg Tab) 650 mg PO Q6 PRN PRN Reason: Fever >100.4 F Famotidine (Pepcid) 40 mg IVP DAILY [facility] Last Admin: 10/10/16 08:30 Dose: 40 mg Heparin Sodium (Porcine) (Heparin) 5,000 units SC Q8 [facility] PRN Reason: Protocol Last Admin: 10/10/16 08:00 Dose: 5,000 units Fentanyl Citrate 2,500 mcg/ (Dextrose) 250 mls @ 0 mls/hr IV .Q0M [facility]; Per Protocol PRN Reason: Protocol Last Admin: 10/10/16 08:28 Dose: 3 mcg/kg/hr, 25.85 mls/hr Metronidazole (Flagyl 500mg/100ml Ns) 100 mls @ 100 mls/hr IVPB Q8 [facility] Last Admin: 10/10/16 08:28 Dose: 100 mls/hr Cefepime HCl 2 gm/ Sodium (Chloride) 100 mls @ 100 mls/hr IVPB DAILY [facility] Last Admin: 10/10/16 08:28 Dose: 100 mls/hr Morphine Sulfate (Morphine) 2 mg IVP Q6 PRN PRN Reason: Pain, moderate (4-7) Last Admin: 10/10/16 12:36 Dose: 2 mg Ondansetron HCl (Zofran Inj) 4 mg IVP Q6 PRN PRN Reason: Nausea/Vomiting - Labs Labs: 10/10/16 04:20 10/10/16 04:20 PT 19.7 Seconds (9.8-13.1) H 10/10/16 04:20 INR 1.7 (0.9-1.2) H 10/10/16 04:20 APTT 44.2 Seconds (25.6-37.1) H 10/10/16 04:20 - GI/Abdominal Exam GI & Abdominal Exam: Guarding, Tenderness, Diminished Bowel Sounds Assessment and Plan - Assessment and Plan (Free Text) Assessment: 6o yo male with necrotic bowel poor prognosis goals of care
--- NOTE | 2016-10-10 21:54 | CP.PCM.PCO ---
Physician Communication Note - Physician Communication Note Physician Communication Note: NO MORE DIALYSIS
[2016-10-11] MEDS: metroNIDAZOLE 500mg/100ml NS 100 ML IVPB SCH ×3 (01:37→16:40)
[2016-10-11 04:51] LABS: BASO # 0.1 K/uL (0.0-0.2); BASO % 0.4 % (0.0-2.0); EOS # 0.3 K/uL (0.0-0.7); EOS % 1.5 % (0.0-4.0); HEMOGLOBIN 9.2 g/dL (12.0-18.0); LYMPH # 1.5 K/uL (1.0-4.3); MEAN CELL VOLUME 85.9 fl (80.0-94.0); MEAN CORPUSCULAR HEMOGLOBIN 27.5 pg (27.0-31.0); MEAN PLATELET VOLUME 9.2 fl (7.2-11.7); MONO # 0.7 K/uL (0.0-0.8); MONO % 3.7 % (0.0-10.0); NEUT # 15.8 K/uL (1.8-7.0); NEUT % 86.4 % (50.0-75.0); NRBC % 0.6 % (0.0-0.0); RBC 3.35 Mil/uL (4.40-5.90); RED CELL DISTRIBUTION WIDTH 16.1 % (11.5-14.5); WHITE BLOOD COUNT 18.3 K/uL (4.8-10.8)
[2016-10-11 05:00] LABS: ABG ALLEN TEST YES; ARTERIAL BLOOD GAS HCO3 31.8 mmol/L (21-28); ARTERIAL BLOOD GAS HEMOGLOBIN 9.5 g/dL (11.7-17.4); ARTERIAL BLOOD GAS O2 CAPACITY 13.4 mL/dL (16-24); ARTERIAL BLOOD GAS O2 CONTENT 13.4 ML/dL (15-23); ARTERIAL BLOOD GAS O2 SAT 99.7 % (95-98); ARTERIAL BLOOD GAS PCO2 42 mm/Hg (35-45); ARTERIAL BLOOD GAS PO2 194 mm/Hg (80-100); ARTERIAL BLOOD GAS TCO2 34.1 mmol/L (22-28)
[2016-10-11] MEDS: Fentanyl Citrate 2,500 MCG in Dextrose 5% In Water 200 ML IV SCH ×2 (05:01→14:05)
[2016-10-11 05:19] LABS: ALB/GLOB RATIO 0.8 (1.0-2.1); ALBUMIN 2.4 g/dL (3.5-5.0); CALCIUM 7.4 mg/dL (8.4-10.2)
[2016-10-11 05:31] LABS: INR 1.6 (0.9-1.2); PARTIAL THROMBOPLASTIN TIME 43.2 Seconds (25.6-37.1); PROTHROMBIN TIME 17.7 Seconds (9.8-13.1)
[2016-10-11] MEDS: Cefepime 2 GM in Sodium Chloride 0.9% 100 ML IVPB SCH (08:42)
--- NOTE | 2016-10-11 08:55 | CP.PCM.PN ---
Subjective - Date & Time of Evaluation Date of Evaluation: 10/11/16 Time of Evaluation: 09:00 - Subjective Subjective: Patient was seen and evaluated bedside. Intubated on MV PRV Ac mode 18/550/5/ FIo2 75% , sedated on Fentanyl drip. Responsive to name calling and grimaces to pain Receiving HD at present BP stable 139/53 , afebrile , sinus rhythm on monitor HR 74 ABG 42/194/31/7/4 WBC 18 K Hgb 9.2 Plt 37 K INR 1.6 BUN/Cr 70/6.1 AST/ ALT 379/[address] to slow intermittent suction with 300 ml gastric output last [address] with 55 ml output last 12 hours Very poor prognosis Objective - Vital Signs/Intake and Output Vital Signs (last 24 hours): Temp Pulse Resp BP Pulse Ox 99.4 F 74 20 139/53 L 99 10/11/16 08:00 10/11/16 08:00 10/11/16 08:00 10/11/16 08:00 10/11/16 08:00 Intake and Output: 10/11/16 10/11/16 06:59 18:59 Intake Total 562 200 Output Total 355 Balance 207 200 - Medications Medications: Current Medications Acetaminophen (Tylenol 325mg Tab) 650 mg PO Q6 PRN PRN Reason: Fever >100.4 F Famotidine (Pepcid) 40 mg IVP DAILY [facility] Last Admin: 10/11/16 08:44 Dose: 40 mg Fentanyl Citrate 2,500 mcg/ (Dextrose) 250 mls @ 0 mls/hr IV .Q0M [facility]; Per Protocol PRN Reason: Protocol Last Admin: 10/11/16 05:01 Dose: 3 mcg/kg/hr, 25.85 mls/hr Metronidazole (Flagyl 500mg/100ml Ns) 100 mls @ 100 mls/hr IVPB Q8 [facility] Last Admin: 10/11/16 08:41 Dose: 100 mls/hr Cefepime HCl 2 gm/ Sodium (Chloride) 100 mls @ 100 mls/hr IVPB DAILY [facility] Last Admin: 10/11/16 08:42 Dose: 100 mls/hr Morphine Sulfate (Morphine) 2 mg IVP Q6 PRN PRN Reason: Pain, moderate (4-7) Last Admin: 10/10/16 12:36 Dose: 2 mg Ondansetron HCl (Zofran Inj) 4 mg IVP Q6 PRN PRN Reason: Nausea/Vomiting - Labs Labs: 10/11/16 04:46 10/11/16 04:46 PT 17.7 Seconds (9.8-13.1) H 10/11/16 04:46 INR 1.6 (0.9-1.2) H 10/11/16 04:46 APTT 43.2 Seconds (25.6-37.1) H 10/11/16 04:46 - Constitutional Appears: Other (intubated on MV, sedated on fentanyl drip) - Head Exam Head Exam: ATRAUMATIC, NORMOCEPHALIC - Eye Exam Eye Exam: PERRL - ENT Exam ENT Exam: Mucous Membranes Dry - Neck Exam Neck Exam: Normal Inspection - Respiratory Exam Respiratory Exam: Clear to Ausculation Bilateral, NORMAL BREATHING PATTERN. absent: Rhonchi, Wheezes - Cardiovascular Exam Cardiovascular Exam: REGULAR RHYTHM, +S1, +S2. absent: JVD - GI/Abdominal Exam GI & Abdominal Exam: Distended, Hypoactive Bowel Sounds Additional comments: midline surgical incision with robby in place , healing well - Exam Exam: Scrotal Swelling - Extremities Exam Extremities Exam: Pedal Edema (3 + pedal edema) - Neurological Exam Additional comments: sedated , responsive to name calling , trying to open his eyes , grimaces to pain - Skin Skin Exam: Pallor, Warm Additional comments: anasarca Assessment and Plan - Assessment and Plan (Free Text) Assessment: 51 y/o male with PMH CABG 2 weeks ago, back pain, HTN, presented with severe sharp abdominal pain associated with nausea and emesis for two days. In ER, pt found to have intractable abdominal pain, disproportionate to exam. CT showed evidence of mesenteric ischemia/infarction. Seen by surgery in ER and taken to OR for emergent exploratory laparatomy by Dr. Sanchez that showed ischemic small bowel and right colon. No surgical intervention could be done, the patient was closed up and transferred to ICU for medical care. Currently intubated on MV , sedated on Fentanyl drip for psedation and pain control ,off pressors Poor Prognosis.Family is in [place] and they want everything to be done 1.Septic shock secondary to ischemic bowel, now with Multi-organ Failure Intubated on MV , sedated off levophed drip cont Fentanyl drip Critically ill with very poor prognosis cont Cefepime and IV Flagyl Family requesting everything to be done Full code 2. Ischemic/Necrotic bowel s/p exploratory laparatomy by general surgery showing necrotic small bowel and right colon No surgical intervention possible at this time Supportive care GI and surgery following 3.Elevated transaminases likely Shock Liver/decrease perfusion LFT-s trending up likely secondary to mesenteric ischemia Continue to monitor NGT in place 4. GOPI likely due to decrease perfusion Pt started on Hemodialysis on 10/08 Nephrology consult - Dr Claudia Law HD cath placed to right groin 5. CAD s/p CABG 2 weeks ago Cardio consult : Dr Putnam 6.Paroxysmal A Fib with RVR episode resolved, now back in [place] received Amiodarone, off drip Cardio consulted 7. Thrombocytopenia d/c Heparin Follow up HIT antibody 8. Acute blood loss anemia Hgb 9.2 9. Coagulopathy INR 1.6 supportive care 10.DVT prophylaxis SCD Heparin
--- NOTE | 2016-10-11 09:43 | CP.PCM.PN ---
Subjective - Date & Time of Evaluation Date of Evaluation: 10/11/16 Time of Evaluation: 09:43 - Subjective Subjective: clinically unchanged still on the ventilator dialysis in progress prognosis is poor will continue attempts to extubate Objective - Vital Signs/Intake and Output Vital Signs (last 24 hours): Temp Pulse Resp BP Pulse Ox 99.4 F 77 18 142/58 L 99 10/11/16 08:00 10/11/16 09:00 10/11/16 09:00 10/11/16 09:00 10/11/16 09:00 Intake and Output: 10/11/16 10/11/16 06:59 18:59 Intake Total 562 200 Output Total 355 Balance 207 200 - Medications Medications: Current Medications Acetaminophen (Tylenol 325mg Tab) 650 mg PO Q6 PRN PRN Reason: Fever >100.4 F Famotidine (Pepcid) 40 mg IVP DAILY [facility] Last Admin: 10/11/16 08:44 Dose: 40 mg Fentanyl Citrate 2,500 mcg/ (Dextrose) 250 mls @ 0 mls/hr IV .Q0M [facility]; Per Protocol PRN Reason: Protocol Last Admin: 10/11/16 05:01 Dose: 3 mcg/kg/hr, 25.85 mls/hr Metronidazole (Flagyl 500mg/100ml Ns) 100 mls @ 100 mls/hr IVPB Q8 [facility] Last Admin: 10/11/16 08:41 Dose: 100 mls/hr Cefepime HCl 2 gm/ Sodium (Chloride) 100 mls @ 100 mls/hr IVPB DAILY [facility] Last Admin: 10/11/16 08:42 Dose: 100 mls/hr Morphine Sulfate (Morphine) 2 mg IVP Q6 PRN PRN Reason: Pain, moderate (4-7) Last Admin: 10/10/16 12:36 Dose: 2 mg Ondansetron HCl (Zofran Inj) 4 mg IVP Q6 PRN PRN Reason: Nausea/Vomiting - Labs Labs: 10/11/16 04:46 10/11/16 04:46 PT 17.7 Seconds (9.8-13.1) H 10/11/16 04:46 INR 1.6 (0.9-1.2) H 10/11/16 04:46 APTT 43.2 Seconds (25.6-37.1) H 10/11/16 04:46
--- NOTE | 2016-10-11 10:11 | CP.PCM.PN ---
<Kyle Brunson - Last Filed: 10/11/16 10:59> Subjective - Date & Time of Evaluation Date of Evaluation: 10/11/16 Time of Evaluation: 10:04 - Subjective Subjective: Surgery Progress note. Dr. Sanchez Pt seen and examined at bedside. Patient currently having dialysis. Does not respond to verbal stimuli. Grimaces upon palpation of abdomen. NG in place - 300cc output. UOP - 55cc. Intubated on vent, PRVC, 550 TV, PEEP 5, FiO2 65%. Sedated on fentanyl. No pressor requirements Objective - Vital Signs/Intake and Output Vital Signs (last 24 hours): Temp Pulse Resp BP Pulse Ox 99.4 F 77 18 142/58 L 99 10/11/16 08:00 10/11/16 09:00 10/11/16 09:00 10/11/16 09:00 10/11/16 09:00 Intake and Output: 10/11/16 10/11/16 06:59 18:59 Intake Total 562 200 Output Total 355 Balance 207 200 - Medications Medications: Current Medications Acetaminophen (Tylenol 325mg Tab) 650 mg PO Q6 PRN PRN Reason: Fever >100.4 F Famotidine (Pepcid) 40 mg IVP DAILY [facility] Last Admin: 10/11/16 08:44 Dose: 40 mg Fentanyl Citrate 2,500 mcg/ (Dextrose) 250 mls @ 0 mls/hr IV .Q0M [facility]; Per Protocol PRN Reason: Protocol Last Admin: 10/11/16 05:01 Dose: 3 mcg/kg/hr, 25.85 mls/hr Metronidazole (Flagyl 500mg/100ml Ns) 100 mls @ 100 mls/hr IVPB Q8 [facility] Last Admin: 10/11/16 08:41 Dose: 100 mls/hr Cefepime HCl 2 gm/ Sodium (Chloride) 100 mls @ 100 mls/hr IVPB DAILY [facility] Last Admin: 10/11/16 08:42 Dose: 100 mls/hr Morphine Sulfate (Morphine) 2 mg IVP Q6 PRN PRN Reason: Pain, moderate (4-7) Last Admin: 10/10/16 12:36 Dose: 2 mg Ondansetron HCl (Zofran Inj) 4 mg IVP Q6 PRN PRN Reason: Nausea/Vomiting - Labs Labs: 10/11/16 04:46 10/11/16 04:46 PT 17.7 Seconds (9.8-13.1) H 10/11/16 04:46 INR 1.6 (0.9-1.2) H 10/11/16 04:46 APTT 43.2 Seconds (25.6-37.1) H 10/11/16 04:46 - Head Exam Head Exam: ATRAUMATIC, NORMAL INSPECTION, NORMOCEPHALIC - Eye Exam Additional comments: No purposeful eye movements - ENT Exam ENT Exam: Mucous Membranes Moist Additional comments: NG tube in place. To suction. 300cc output overnight - Respiratory Exam Additional comments: Intubated on vent. PRVC, 550 TV, PEEP 5, FiO2 65% - GI/Abdominal Exam Additional comments: Midline incision intact with robby. Clean and intact with skin margins well approximated. Difusely distended abdomen. Patient grimaces in pain upon palpation of abdomen. - Neurological Exam Additional comments: Intubated and sedated - Psychiatric Exam Psychiatric exam: Normal Affect, Normal Mood Assessment and Plan - Assessment and Plan (Free Text) Assessment: 51yo M with Mesenteric Ischemia. S/p Ex lap with examination of entire bowel 7/ 8. POD 5 - Ischemic entire small bowel and right colon - Acute Kidney Injury. Creatinine elevated. UOP 55cc/12hrs. Now on HD schedule 3x/week. - Thrombocytopenia worse - Hyperbilirubinemia worse - Leukocytosis - poor prognosis - Continue to medically optimize - Strict I&Os - NGT to suction - Continue ABX - No further surgical intervention Further recs as per Dr. Daniel Brunson PGY1 surgery pager: [phone] <Calixto Sanchez - Last Filed: 10/12/16 10:31> Subjective - Subjective Subjective: Patient was seen and examined at the bedside. Agree with resident's note above. Objective - Vital Signs/Intake and Output Vital Signs (last 24 hours): Temp Pulse Resp BP Pulse Ox 98.6 F 77 18 124/47 L 100 10/12/16 08:00 10/12/16 08:00 10/12/16 08:00 10/12/16 08:00 10/12/16 08:00 Intake and Output: 10/12/16 10/12/16 06:59 18:59 Intake Total 638 250 Output Total 160 Balance 478 250 - Medications Medications: Current Medications Acetaminophen (Tylenol 325mg Tab) 650 mg PO Q6 PRN PRN Reason: Fever >100.4 F Fentanyl Citrate 2,500 mcg/ (Dextrose) 250 mls @ 0 mls/hr IV .Q0M [facility]; Per Protocol PRN Reason: Protocol Last Admin: 10/12/16 10:11 Dose: 3 mcg/kg/hr, 25.85 mls/hr Metronidazole (Flagyl 500mg/100ml Ns) 100 mls @ 100 mls/hr IVPB Q8 [facility] Last Admin: 10/12/16 08:42 Dose: 100 mls/hr Cefepime HCl 2 gm/ Sodium (Chloride) 100 mls @ 100 mls/hr IVPB DAILY [facility] Last Admin: 10/12/16 10:10 Dose: 100 mls/hr Argatroban 250 mg/ Sodium (Chloride) 250 mls @ 3.04 mls/hr IV .Q24H [facility]; 0.5 MCG/KG/MIN PRN Reason: Protocol Last Admin: 10/12/16 05:50 Dose: 0.6 mls/hr Pantoprazole Sodium 40 mg/ (Sodium Chloride) 100 mls @ 20 mls/hr IVPB Q5H [facility] PRN Reason: 8 MG/HR Morphine Sulfate (Morphine) 2 mg IVP Q6 PRN PRN Reason: Pain, moderate (4-7) Last Admin: 10/10/16 12:36 Dose: 2 mg Ondansetron HCl (Zofran Inj) 4 mg IVP Q6 PRN PRN Reason: Nausea/Vomiting Pantoprazole Sodium (Protonix Inj) 80 mg IVP ONCE ONE Stop: 10/12/16 10:31 - Labs Labs: 10/12/16 07:00 10/12/16 07:00 PT 17.7 Seconds (9.8-13.1) H 10/11/16 04:46 INR 1.6 (0.9-1.2) H 10/11/16 04:46 APTT 94.1 Seconds (25.6-37.1) H 10/12/16 07:00
--- NOTE | 2016-10-11 10:15 | CP.PCM.PN ---
Subjective - Date & Time of Evaluation Date of Evaluation: 10/11/16 Time of Evaluation: 10:13 - Subjective Subjective: No new events reported patient remained on respirator Patient receiving dialysis now with ultrafiltration about 3000 mL if tolerated Blood pressure appeared to be stable Urine output remained poor Electrolyte noted BUN and creatinine and the rest of the chemistry noted including liver enzyme which has been elevated Impression and plan Multiorgan failure including respiratory failure renal failure intestinal gangrene and abnormal liver function. Continue hemodialysis as scheduled Objective - Vital Signs/Intake and Output Vital Signs (last 24 hours): Temp Pulse Resp BP Pulse Ox 99.4 F 77 18 142/58 L 99 10/11/16 08:00 10/11/16 09:00 10/11/16 09:00 10/11/16 09:00 10/11/16 09:00 Intake and Output: 10/11/16 10/11/16 06:59 18:59 Intake Total 562 200 Output Total 355 Balance 207 200 - Medications Medications: Current Medications Acetaminophen (Tylenol 325mg Tab) 650 mg PO Q6 PRN PRN Reason: Fever >100.4 F Famotidine (Pepcid) 40 mg IVP DAILY [facility] Last Admin: 10/11/16 08:44 Dose: 40 mg Fentanyl Citrate 2,500 mcg/ (Dextrose) 250 mls @ 0 mls/hr IV .Q0M [facility]; Per Protocol PRN Reason: Protocol Last Admin: 10/11/16 05:01 Dose: 3 mcg/kg/hr, 25.85 mls/hr Metronidazole (Flagyl 500mg/100ml Ns) 100 mls @ 100 mls/hr IVPB Q8 [facility] Last Admin: 10/11/16 08:41 Dose: 100 mls/hr Cefepime HCl 2 gm/ Sodium (Chloride) 100 mls @ 100 mls/hr IVPB DAILY [facility] Last Admin: 10/11/16 08:42 Dose: 100 mls/hr Morphine Sulfate (Morphine) 2 mg IVP Q6 PRN PRN Reason: Pain, moderate (4-7) Last Admin: 10/10/16 12:36 Dose: 2 mg Ondansetron HCl (Zofran Inj) 4 mg IVP Q6 PRN PRN Reason: Nausea/Vomiting - Labs Labs: 10/11/16 04:46 10/11/16 04:46 PT 17.7 Seconds (9.8-13.1) H 10/11/16 04:46 INR 1.6 (0.9-1.2) H 10/11/16 04:46 APTT 43.2 Seconds (25.6-37.1) H 10/11/16 04:46 Assessment and Plan (1) Acute renal failure (ARF) Status: Acute
--- NOTE | 2016-10-11 10:37 | CP.CCUPN ---
<Kenan Carbone - Last Filed: 10/11/16 15:28> CCU Subjective - Physician Review Events Since Last Encounter (Free Text): 10/11/16 10:40 Patient is seen at bedside and remains on the ventilator. He is not responsive to verbal stimuli but is responsive to painful stimulous and grimaces. - Medical team spoke to patients friend at bedside yesterday who has been in contact with the patients family in [place]. They initally wanted DNR for the patient and to continue with comfort measures. She then came back latter throughout the night and stated the family would like to make the patient a full code and hope for a "miracle". Will decrease the fentynl today, to decrease the sedation, so patient can be explained his diagnosis and poor prognosis and be a able to make his own decision of CODE status. 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 Heparin induced platelet antibodies have been ordered. - BP is stable at 139/53, afebrile - NG tube in place w/ 300mg gastric output in the last 12 hours - Urine output: 55 ml in past 12 hours - Weaning patient off vent. Setting are being changed to PRVC RR:18, TV: 550, PEEP:5, FIO2: 60 10/11/16 11:09 10/11/16 11:39 Critical Care Time Spent (in minutes): 30 CCU Objective - Vital Signs / Intake & Output Vital Signs (Last 4 hours): Vital Signs Temp Pulse Resp BP Pulse Ox 10/11/16 09:00 77 18 142/58 L 99 10/11/16 08:00 99.4 F 74 20 139/53 L 99 10/11/16 07:00 73 18 137/99 H 100 Intake and Output (Last 8hrs): Intake & Output 10/10/16 10/11/16 10/11/16 22:59 06:59 14:59 Intake Total 406 458 200 Output Total 1250 240 Balance -844 218 200 Weight 224 lb Intake: IV 406 406 Intake, Piggyback 200 Oral 0 52 Output: Gastric Amount 225 200 Stomach 225 200 Urine 25 40 Urethral (Taylor) 25 40 Other 1000 Other: # Bowel Movements 0 - Physical Exam Head: Positive for: Atraumatic, Normocephalic Pupils: Positive for: PERRL Conjunctiva: Positive for: Normal. Negative for: Icteric Ears: Positive for: Normal Mouth: Positive for: Moist Mucous Membranes Nose (External): Positive for: Atraumatic Nose (Internal): Positive for: Normal Inspection Neck: Positive for: Trachea Midline. Negative for: JVD Respiratory/Chest: Positive for: Decreased Breath Sounds, Rhonchi Cardiovascular: Positive for: Regular Rate and Rhythm, Tachycardic. Negative for: Murmurs, Rub Abdomen: Positive for: Tenderness (Generalized tenderness to palpate. Jumana seen intact on mid epigastrium, no pus or discharge noted), Distention, Guarding , Other (Abd dressing intact and dry, no BS heard. ) Genitourinary Male: Positive for: Testicle Swelling Upper Extremity: Positive for: Normal Inspection Lower Extremity: Positive for: Cyanosis, Other (B/l lower extremites are warm) Neurological: Positive for: Other (on ventilator, sedated, no response to verbal stimuli. Pt is responsive to painful stimuli) Skin: Positive for: Warm. Negative for: Rashes Psychiatric: Positive for: Other (sedated) - Medications Active Medications: Active Medications Generic Name Dose Route Start Last Admin Trade Name Freq PRN Reason Stop Dose Admin Acetaminophen 650 mg 10/06/16 15:27 Tylenol 325mg Tab PO Q6 PRN Fever >100.4 F Famotidine 40 mg 10/08/16 11:00 10/11/16 08:44 Pepcid IVP 40 mg DAILY RUTHY Administration Fentanyl Citrate 2,500 mcg/ 250 mls @ 0 mls/hr 10/08/16 11:15 10/11/16 05:01 Dextrose IV 3 mcg/kg/hr .Q0M RUTHY 25.85 mls/hr Protocol Administration Per Protocol Metronidazole 100 mls @ 100 mls/hr 10/08/16 11:15 10/11/16 08:41 Flagyl 500mg/100ml Ns IVPB 100 mls/hr Q8 RUTHY Administration Cefepime HCl 2 gm/ Sodium 100 mls @ 100 mls/hr 10/09/16 11:15 10/11/16 08:42 Chloride IVPB 100 mls/hr DAILY RUTHY Administration Morphine Sulfate 2 mg 10/08/16 09:00 10/10/16 12:36 Morphine IVP 2 mg Q6 PRN Administration Pain, moderate (4-7) Ondansetron HCl 4 mg 10/06/16 15:27 Zofran Inj IVP Q6 PRN Nausea/Vomiting - Patient Studies Lab Studies: Lab Studies 10/11/16 10/11/16 10/11/16 Range/Units 06:13 04:55 04:46 WBC (4.8-10.8) K/uL RBC (4.40-5.90) Mil/uL Hgb (12.0-18.0) g/dL Hct (35.0-51.0) % MCV (80.0-94.0) fl MCH (27.0-31.0) pg MCHC (33.0-37.0) g/dL RDW (11.5-14.5) % Plt Count (130-400) K/uL MPV (7.2-11.7) fl Neut % (Auto) (50.0-75.0) % Lymph % (Auto) (20.0-40.0) % [place] % (Auto) (0.0-10.0) % Eos % (Auto) (0.0-4.0) % Baso % (Auto) (0.0-2.0) % Neut # (1.8-7.0) K/uL Lymph # (1.0-4.3) K/uL [place] # (0.0-0.8) K/uL Eos # (0.0-0.7) K/uL Baso # (0.0-0.2) K/uL PT (9.8-13.1) Seconds INR (0.9-1.2) APTT (25.6-37.1) Seconds Fibrinogen (200-400) mg/dl pCO2 42 (35-45) mm/Hg pO2 194 H (80-100) mm/Hg HCO3 31.8 H (21-28) mmol/L ABG pH 7.50 H (7.35-7.45) ABG Total CO2 34.1 H (22-28) mmol/L ABG O2 Saturation 99.7 H (95-98) % ABG O2 Content 13.4 L (15-23) ML/dL ABG Base Excess 8.8 H (-2.0-3.0) mmol/L ABG Hemoglobin 9.5 L (11.7-17.4) g/dL ABG Carboxyhemoglobin 1.2 (0.5-1.5) % POC ABG HHb (Measured) 0.3 (0.0-5.0) % ABG Methemoglobin 1.5 (0.0-3.0) % ABG O2 Capacity 13.4 L (16-24) mL/dL Quirino Test Yes A-a O2 Difference 288.0 mm/Hg Hgb O2 Saturation 97.1 (95.0-98.0) % Vent Mode A/c Mechanical Rate 18 FiO2 75.0 % Tidal Volume 550 PEEP 5 Sodium 135 (132-148) mmol/l Potassium 3.8 (3.6-5.0) MMOL/L Chloride 90 L (98-107) mmol/L Carbon Dioxide 31 H (22-30) mmol/L Anion Gap 18 (10-20) BUN 70 H (9-20) mg/dl Creatinine 6.1 H (0.8-1.5) mg/dL Est GFR ( Amer) 12 Est GFR (Non-Af Amer) 10 Random Glucose 89 (75-110) mg/dL Calcium 7.4 L (8.4-10.2) mg/dL Total Bilirubin 5.2 H (0.2-1.3) mg/dl AST 379 H D (17-59) U/L ALT 212 H D (21-72) U/L Alkaline Phosphatase 158 H (38-126) U/L Total Protein 5.6 L (6.3-8.2) G/DL Albumin 2.4 L (3.5-5.0) g/dL Globulin 3.2 (2.2-3.9) gm/dL Albumin/Globulin Ratio 0.8 L (1.0-2.1) Blood Type O POSITIVE Antibody Screen Negative BBK History Checked Patient has bt 10/11/16 10/11/16 Range/Units 04:46 04:46 WBC 18.3 H (4.8-10.8) K/uL RBC 3.35 L (4.40-5.90) Mil/uL Hgb 9.2 L (12.0-18.0) g/dL Hct 28.8 L (35.0-51.0) % MCV 85.9 (80.0-94.0) fl MCH 27.5 (27.0-31.0) pg MCHC 32.0 L (33.0-37.0) g/dL RDW 16.1 H (11.5-14.5) % Plt Count 37 L (130-400) K/uL MPV 9.2 (7.2-11.7) fl Neut % (Auto) 86.4 H (50.0-75.0) % Lymph % (Auto) 8.0 L (20.0-40.0) % [place] % (Auto) 3.7 (0.0-10.0) % Eos % (Auto) 1.5 (0.0-4.0) % Baso % (Auto) 0.4 (0.0-2.0) % Neut # 15.8 H (1.8-7.0) K/uL Lymph # 1.5 (1.0-4.3) K/uL [place] # 0.7 (0.0-0.8) K/uL Eos # 0.3 (0.0-0.7) K/uL Baso # 0.1 (0.0-0.2) K/uL PT 17.7 H (9.8-13.1) Seconds INR 1.6 H (0.9-1.2) APTT 43.2 H (25.6-37.1) Seconds Fibrinogen 601 H* (200-400) mg/dl pCO2 (35-45) mm/Hg pO2 (80-100) mm/Hg HCO3 (21-28) mmol/L ABG pH (7.35-7.45) ABG Total CO2 (22-28) mmol/L ABG O2 Saturation (95-98) % ABG O2 Content (15-23) ML/dL ABG Base Excess (-2.0-3.0) mmol/L ABG Hemoglobin (11.7-17.4) g/dL ABG Carboxyhemoglobin (0.5-1.5) % POC ABG HHb (Measured) (0.0-5.0) % ABG Methemoglobin (0.0-3.0) % ABG O2 Capacity (16-24) mL/dL Quirino Test A-a O2 Difference mm/Hg Hgb O2 Saturation (95.0-98.0) % Vent Mode Mechanical Rate FiO2 % Tidal Volume PEEP Sodium (132-148) mmol/l Potassium (3.6-5.0) MMOL/L Chloride (98-107) mmol/L Carbon Dioxide (22-30) mmol/L Anion Gap (10-20) BUN (9-20) mg/dl Creatinine (0.8-1.5) mg/dL Est GFR ( Amer) Est GFR (Non-Af Amer) Random Glucose (75-110) mg/dL Calcium (8.4-10.2) mg/dL Total Bilirubin (0.2-1.3) mg/dl AST (17-59) U/L ALT (21-72) U/L Alkaline Phosphatase (38-126) U/L Total Protein (6.3-8.2) G/DL Albumin (3.5-5.0) g/dL Globulin (2.2-3.9) gm/dL Albumin/Globulin Ratio (1.0-2.1) Blood Type Antibody Screen BBK History Checked Laboratory Results - last 24 hr 10/11/16 10/11/16 10/11/16 04:46 04:46 04:46 WBC 18.3 H RBC 3.35 L Hgb 9.2 L Hct 28.8 L MCV 85.9 MCH 27.5 MCHC 32.0 L RDW 16.1 H Plt Count 37 L MPV 9.2 Neut % (Auto) 86.4 H Lymph % (Auto) 8.0 L [place] % (Auto) 3.7 Eos % (Auto) 1.5 Baso % (Auto) 0.4 Neut # 15.8 H Lymph # 1.5 [place] # 0.7 Eos # 0.3 Baso # 0.1 PT 17.7 H INR 1.6 H APTT 43.2 H Fibrinogen 601 H* pCO2 pO2 HCO3 ABG pH ABG Total CO2 ABG O2 Saturation ABG O2 Content ABG Base Excess ABG Hemoglobin ABG Carboxyhemoglobin POC ABG HHb (Measured) ABG Methemoglobin ABG O2 Capacity Quirino Test A-a O2 Difference Hgb O2 Saturation Vent Mode Mechanical Rate FiO2 Tidal Volume PEEP Sodium 135 Potassium 3.8 Chloride 90 L Carbon Dioxide 31 H Anion Gap 18 BUN 70 H Creatinine 6.1 H Est GFR ( Amer) 12 Est GFR (Non-Af Amer) 10 Random Glucose 89 Calcium 7.4 L Total Bilirubin 5.2 H AST 379 H D ALT 212 H D Alkaline Phosphatase 158 H Total Protein 5.6 L Albumin 2.4 L Globulin 3.2 Albumin/Globulin Ratio 0.8 L Blood Type Antibody Screen BBK History Checked 10/11/16 10/11/16 04:55 06:13 WBC RBC Hgb Hct MCV MCH MCHC RDW Plt Count MPV Neut % (Auto) Lymph % (Auto) [place] % (Auto) Eos % (Auto) Baso % (Auto) Neut # Lymph # [place] # Eos # Baso # PT INR APTT Fibrinogen pCO2 42 pO2 194 H HCO3 31.8 H ABG pH 7.50 H ABG Total CO2 34.1 H ABG O2 Saturation 99.7 H ABG O2 Content 13.4 L ABG Base Excess 8.8 H ABG Hemoglobin 9.5 L ABG Carboxyhemoglobin 1.2 POC ABG HHb (Measured) 0.3 ABG Methemoglobin 1.5 ABG O2 Capacity 13.4 L Quirino Test Yes A-a O2 Difference 288.0 Hgb O2 Saturation 97.1 Vent Mode A/c Mechanical Rate 18 FiO2 75.0 Tidal Volume 550 PEEP 5 Sodium Potassium Chloride Carbon Dioxide Anion Gap BUN Creatinine Est GFR ( Amer) Est GFR (Non-Af Amer) Random Glucose Calcium Total Bilirubin AST ALT Alkaline Phosphatase Total Protein Albumin Globulin Albumin/Globulin Ratio Blood Type O POSITIVE Antibody Screen Negative BBK History Checked Patient has bt Review of Systems - Review of Systems All systems: reviewed and no additional remarkable complaints except Critical Care Progress Note - Ventilator Checklist Head of Bed 30 Degrees: Yes Daily Assessment of Readiness to Wean: Yes Oral Care with Chlorhexidine Gluconate {CHG}: Yes - Vent Settings MODE:: PCV TIDAL VOLUME:: 550 RESP RATE:: 18 FIO2:: 60 PEEP:: 5 - Extremities/Vascular Does the Patient have a Central Venous Catheter?: Yes Does the Patient need a Central Venous Catheter?: Yes Does the Patient have a Taylor Catheter?: Yes Does the Patient need a Taylor Catheter?: Yes Assessment/Plan - Assessment and Plan (Free Text) Assessment: 1) Septic Shock, secondary to ischemic bowl - Continues to be intubated: Wean patient off today, FIO2 decreased to 60% and patient continues to oxygenate at 100%. - Will Start patient on Argatorban, have discussed with surgery. - Pain controlled with fentanyl drip, will be decreased to have the patient be less sedated so he can make informed consent on is code status. - Pt is not a candidate for surgery, case has been discussed with Dr. Gallo and Dr. Anderson on rounds - Cont w/ Cefapime and IV Flagyl significant bandemia was noted - Lactic acid :6.0, Procalcitonin : 102.51 - Poor prognosis - F/U w/ am procalcitonin, and ABG - Currently full code, will decrease patient and have him make an informed decision 2.) Elevated liver enzymes most likely secondary to mesenteric ischemia - AST:379, ALT:212:-> trending down - Total bilirubin: 5.2, Seems to be trending up - GI consult appreciated - Continue to monitor 3. Renal failure secondary to decrease perfusion - Recieving HD today - BUN:70, Creatinine:6.1 - Dr. Zavaleta on consult 4) Resp failure secondary to bilateral effusion - Currently intubated - FI02 has been decreased to 60% and patient is continuing to saturate 100%. - Will try to exudate today - F/U w/ am procalcitonin, and ABG 4) Metabolic Alkalosis PH: 7.5, PCO2: 42, Bicarb:31.8 5) A Fib ( Resolved) - Resolved after receiving amiodarone. 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 Argatroban will be started today, after discussion w/ Surgery. Surgery states they have no contraindication with starting the patient with Argatroban. Patients prognosis is poor. - SCD <Corey Robledo - Last Filed: 10/11/16 16:28> Assessment/Plan - Assessment and Plan (Free Text) Plan: Attestation: Patient seen and examined at the bedside with Resident Dr. Ros Carbone; and I agree with his outline of plans and management as documented and discussed on AM rounds reflecting my review of all applicable clinical data, and participation in the care of the patient throughout the day in ICU; today, October 11, 2016.
--- NOTE | 2016-10-11 13:02 | RAD ---
HISTORY: re evaluate COMPARISON: 10/10/2016. FINDINGS: The endotracheal tube terminates 5.1 cm proximal to the daryl. LUNGS: There is mild pulmonary venous congestion. There are low lung volumes. PLEURA: There are small pleural effusions. No pneumothorax apparent. CARDIOVASCULAR: The heart is enlarged. Status post CABG. OSSEOUS STRUCTURES: No significant abnormalities. VISUALIZED UPPER ABDOMEN: Normal. OTHER FINDINGS: None. IMPRESSION: Mild pulmonary venous congestion and small pleural effusions. Low lung volumes could be related to poor inspiratory effort.
--- NOTE | 2016-10-11 17:40 | CP.PCM.PN ---
Subjective - Date & Time of Evaluation Date of Evaluation: 10/11/16 Time of Evaluation: 17:40 - Subjective Subjective: no clinical change Objective - Vital Signs/Intake and Output Vital Signs (last 24 hours): Temp Pulse Resp BP Pulse Ox 99.1 F 75 18 140/50 L 96 10/11/16 16:00 10/11/16 17:00 10/11/16 17:00 10/11/16 17:00 10/11/16 17:00 Intake and Output: 10/11/16 10/11/16 06:59 18:59 Intake Total 562 900 Output Total 355 2080 Balance 207 -1180 - Medications Medications: Current Medications Acetaminophen (Tylenol 325mg Tab) 650 mg PO Q6 PRN PRN Reason: Fever >100.4 F Famotidine (Pepcid) 40 mg IVP DAILY RUTHY Last Admin: 10/11/16 08:44 Dose: 40 mg Fentanyl Citrate 2,500 mcg/ (Dextrose) 250 mls @ 0 mls/hr IV .Q0M RUTHY; Per Protocol PRN Reason: Protocol Last Admin: 10/11/16 14:05 Dose: 3 mcg/kg/hr, 25.85 mls/hr Metronidazole (Flagyl 500mg/100ml Ns) 100 mls @ 100 mls/hr IVPB Q8 RUTHY Last Admin: 10/11/16 16:40 Dose: 100 mls/hr Cefepime HCl 2 gm/ Sodium (Chloride) 100 mls @ 100 mls/hr IVPB DAILY RUTHY Last Admin: 10/11/16 08:42 Dose: 100 mls/hr Argatroban 250 mg/ Sodium (Chloride) 250 mls @ 3.04 mls/hr IV .Q24H RUTHY; 0.5 MCG/KG/MIN PRN Reason: Protocol Last Admin: 10/11/16 13:48 Dose: 3.04 mls/hr Morphine Sulfate (Morphine) 2 mg IVP Q6 PRN PRN Reason: Pain, moderate (4-7) Last Admin: 10/10/16 12:36 Dose: 2 mg Ondansetron HCl (Zofran Inj) 4 mg IVP Q6 PRN PRN Reason: Nausea/Vomiting - Labs Labs: 10/11/16 04:46 10/11/16 04:46 PT 17.7 Seconds (9.8-13.1) H 10/11/16 04:46 INR 1.6 (0.9-1.2) H 10/11/16 04:46 APTT 66.8 Seconds (25.6-37.1) H D 10/11/16 16:07 - GI/Abdominal Exam GI & Abdominal Exam: Soft, Tenderness, Diminished Bowel Sounds Assessment and Plan - Assessment and Plan (Free Text) Assessment: 51 yo male with necrotic bowel abx goals of care
[2016-10-12] MEDS: metroNIDAZOLE 500mg/100ml NS 100 ML IVPB SCH ×3 (01:10→16:08)
[2016-10-12] MEDS: Fentanyl Citrate 2,500 MCG in Dextrose 5% In Water 200 ML IV SCH ×2 (01:22→10:11)
[2016-10-12 05:03] LABS: ABG ALLEN TEST YES; ARTERIAL BLOOD GAS HCO3 28.6 mmol/L (21-28); ARTERIAL BLOOD GAS HEMOGLOBIN 9.6 g/dL (11.7-17.4); ARTERIAL BLOOD GAS O2 CAPACITY 13.3 mL/dL (16-24); ARTERIAL BLOOD GAS O2 CONTENT 13.2 ML/dL (15-23); ARTERIAL BLOOD GAS O2 SAT 99.4 % (95-98); ARTERIAL BLOOD GAS PCO2 42 mm/Hg (35-45); ARTERIAL BLOOD GAS PH 7.45 (7.35-7.45); ARTERIAL BLOOD GAS PO2 113 mm/Hg (80-100); ARTERIAL BLOOD GAS TCO2 30.5 mmol/L (22-28)
[2016-10-12 07:35] LABS: HEMOGLOBIN 9.2 g/dL (12.0-18.0); MEAN CELL VOLUME 85.2 fl (80.0-94.0); MEAN CORPUSCULAR HEMOGLOBIN 27.6 pg (27.0-31.0); MEAN CORPUSCULAR HGB CONC 32.4 g/dL (33.0-37.0); RBC 3.32 Mil/uL (4.40-5.90); RED CELL DISTRIBUTION WIDTH 16.2 % (11.5-14.5); WHITE BLOOD COUNT 17.1 K/uL (4.8-10.8)
[2016-10-12 07:45] LABS: CALCIUM 7.8 mg/dL (8.4-10.2)
--- NOTE | 2016-10-12 08:28 | CP.PCM.PN ---
<King Oropeza - Last Filed: 10/12/16 08:29> Subjective - Date & Time of Evaluation Date of Evaluation: 10/12/16 Time of Evaluation: 08:22 - Subjective Subjective: Surgery: Dr. Sanchez Pt seen and examined. Remains intubated. NGT in place, output appears more bloody. Argatroban drip started. Objective - Vital Signs/Intake and Output Vital Signs (last 24 hours): Temp Pulse Resp BP Pulse Ox 99.6 F 77 18 124/50 L 100 10/12/16 04:00 10/12/16 07:00 10/12/16 07:00 10/12/16 07:00 10/12/16 07:00 Intake and Output: 10/12/16 10/12/16 06:59 18:59 Intake Total 638 Output Total 160 Balance 478 - Medications Medications: Current Medications Acetaminophen (Tylenol 325mg Tab) 650 mg PO Q6 PRN PRN Reason: Fever >100.4 F Famotidine (Pepcid) 40 mg IVP DAILY [facility] Last Admin: 10/11/16 08:44 Dose: 40 mg Fentanyl Citrate 2,500 mcg/ (Dextrose) 250 mls @ 0 mls/hr IV .Q0M RUTHY; Per Protocol PRN Reason: Protocol Last Admin: 10/12/16 01:22 Dose: 3 mcg/kg/hr, 25.85 mls/hr Metronidazole (Flagyl 500mg/100ml Ns) 100 mls @ 100 mls/hr IVPB Q8 RUTHY Last Admin: 10/12/16 01:10 Dose: 100 mls/hr Cefepime HCl 2 gm/ Sodium (Chloride) 100 mls @ 100 mls/hr IVPB DAILY RUTHY Last Admin: 10/11/16 08:42 Dose: 100 mls/hr Argatroban 250 mg/ Sodium (Chloride) 250 mls @ 3.04 mls/hr IV .Q24H RUTHY; 0.5 MCG/KG/MIN PRN Reason: Protocol Last Admin: 10/12/16 05:50 Dose: 0.6 mls/hr Morphine Sulfate (Morphine) 2 mg IVP Q6 PRN PRN Reason: Pain, moderate (4-7) Last Admin: 10/10/16 12:36 Dose: 2 mg Ondansetron HCl (Zofran Inj) 4 mg IVP Q6 PRN PRN Reason: Nausea/Vomiting - Labs Labs: 10/12/16 07:00 10/12/16 07:00 PT 17.7 Seconds (9.8-13.1) H 10/11/16 04:46 INR 1.6 (0.9-1.2) H 10/11/16 04:46 APTT 94.1 Seconds (25.6-37.1) H 10/12/16 07:00 - Constitutional Appears: Toxic, Chronically Ill - Head Exam Head Exam: ATRAUMATIC, NORMOCEPHALIC - Eye Exam Eye Exam: Scleral icterus - Respiratory Exam Additional comments: intubated - GI/Abdominal Exam GI & Abdominal Exam: Distended, Firm, Tenderness, Rebound. absent: Rigid - Extremities Exam Extremities Exam: Pedal Edema - Neurological Exam Neurological Exam: absent: Alert, Awake, Oriented x3 Assessment and Plan - Assessment and Plan (Free Text) Assessment: 51yo M with Mesenteric Ischemia. S/p Ex lap with examination of entire bowel 7/ 8. POD#6 -no further surgical intervention -recommend palliative care -prognosis poor -will continue to follow -will d/w attending Sandip PGY3 <Calixto Sanchez - Last Filed: 10/12/16 10:39> Subjective - Date & Time of Evaluation Time of Evaluation: 10:00 - Subjective Subjective: Patient was seen and examined at the bedside. Agree with resident's note above. Objective - Vital Signs/Intake and Output Vital Signs (last 24 hours): Temp Pulse Resp BP Pulse Ox 98.6 F 77 18 124/47 L 100 10/12/16 08:00 10/12/16 08:00 10/12/16 08:00 10/12/16 08:00 10/12/16 08:00 Intake and Output: 10/12/16 10/12/16 06:59 18:59 Intake Total 638 250 Output Total 160 Balance 478 250 - Medications Medications: Current Medications Acetaminophen (Tylenol 325mg Tab) 650 mg PO Q6 PRN PRN Reason: Fever >100.4 F Fentanyl Citrate 2,500 mcg/ (Dextrose) 250 mls @ 0 mls/hr IV .Q0M RUTHY; Per Protocol PRN Reason: Protocol Last Admin: 10/12/16 10:11 Dose: 3 mcg/kg/hr, 25.85 mls/hr Metronidazole (Flagyl 500mg/100ml Ns) 100 mls @ 100 mls/hr IVPB Q8 RUTHY Last Admin: 10/12/16 08:42 Dose: 100 mls/hr Cefepime HCl 2 gm/ Sodium (Chloride) 100 mls @ 100 mls/hr IVPB DAILY RUTHY Last Admin: 10/12/16 10:10 Dose: 100 mls/hr Argatroban 250 mg/ Sodium (Chloride) 250 mls @ 3.04 mls/hr IV .Q24H RUTHY; 0.5 MCG/KG/MIN PRN Reason: Protocol Last Admin: 10/12/16 05:50 Dose: 0.6 mls/hr Pantoprazole Sodium 40 mg/ (Sodium Chloride) 100 mls @ 20 mls/hr IVPB Q5H RUTHY PRN Reason: 8 MG/HR Morphine Sulfate (Morphine) 2 mg IVP Q6 PRN PRN Reason: Pain, moderate (4-7) Last Admin: 10/10/16 12:36 Dose: 2 mg Ondansetron HCl (Zofran Inj) 4 mg IVP Q6 PRN PRN Reason: Nausea/Vomiting - Labs Labs: 10/12/16 07:00 10/12/16 07:00 PT 17.7 Seconds (9.8-13.1) H 10/11/16 04:46 INR 1.6 (0.9-1.2) H 10/11/16 04:46 APTT 94.1 Seconds (25.6-37.1) H 10/12/16 07:00
--- NOTE | 2016-10-12 08:51 | CP.PCM.PN ---
Subjective - Date & Time of Evaluation Date of Evaluation: 10/12/16 Time of Evaluation: 08:30 - Subjective Subjective: Patient was seen and evaluated bedside. Intubated on MV PRV Ac mode 18/550/5/ FIo2 55% , sedated on Fentanyl drip. Responsive to name calling and grimaces to pain NGT in place with more bloody output. ETT and oral cavity with thicjk bloody secretions BP stable 124/47 , afebrile , sinus rhythm on monitor HR 77 ABG 42/113/28/7.4 WBC 17 K Hgb 9.2 Plt 36 K APTT 94 BUN/Cr 71/6.6 With anasarca Taylor in place with 40 ml output last 12 hours Very poor prognosis Objective - Vital Signs/Intake and Output Vital Signs (last 24 hours): Temp Pulse Resp BP Pulse Ox 98.6 F 77 18 124/47 L 100 10/12/16 08:00 10/12/16 08:00 10/12/16 08:00 10/12/16 08:00 10/12/16 08:00 Intake and Output: 10/12/16 10/12/16 06:59 18:59 Intake Total 638 Output Total 160 Balance 478 - Medications Medications: Current Medications Acetaminophen (Tylenol 325mg Tab) 650 mg PO Q6 PRN PRN Reason: Fever >100.4 F Famotidine (Pepcid) 40 mg IVP DAILY [facility] Last Admin: 10/12/16 08:44 Dose: 40 mg Fentanyl Citrate 2,500 mcg/ (Dextrose) 250 mls @ 0 mls/hr IV .Q0M RUTHY; Per Protocol PRN Reason: Protocol Last Admin: 10/12/16 01:22 Dose: 3 mcg/kg/hr, 25.85 mls/hr Metronidazole (Flagyl 500mg/100ml Ns) 100 mls @ 100 mls/hr IVPB Q8 RUTHY Last Admin: 10/12/16 08:42 Dose: 100 mls/hr Cefepime HCl 2 gm/ Sodium (Chloride) 100 mls @ 100 mls/hr IVPB DAILY RUTHY Last Admin: 10/11/16 08:42 Dose: 100 mls/hr Argatroban 250 mg/ Sodium (Chloride) 250 mls @ 3.04 mls/hr IV .Q24H RUTHY; 0.5 MCG/KG/MIN PRN Reason: Protocol Last Admin: 10/12/16 05:50 Dose: 0.6 mls/hr Morphine Sulfate (Morphine) 2 mg IVP Q6 PRN PRN Reason: Pain, moderate (4-7) Last Admin: 10/10/16 12:36 Dose: 2 mg Ondansetron HCl (Zofran Inj) 4 mg IVP Q6 PRN PRN Reason: Nausea/Vomiting - Labs Labs: 10/12/16 07:00 10/12/16 07:00 PT 17.7 Seconds (9.8-13.1) H 10/11/16 04:46 INR 1.6 (0.9-1.2) H 10/11/16 04:46 APTT 94.1 Seconds (25.6-37.1) H 10/12/16 07:00 - Constitutional Appears: Toxic, Other (intubated on MV , on fentanyl drip, grimaces to tactile stimuli and name calling ) - Head Exam Head Exam: NORMOCEPHALIC - Eye Exam Eye Exam: PERRL - ENT Exam ENT Exam: Mucous Membranes Dry (with thick bloody secretions to ral cavity ) - Neck Exam Neck Exam: Normal Inspection - Respiratory Exam Respiratory Exam: Clear to Ausculation Bilateral. absent: Rales, Rhonchi, Wheezes - Cardiovascular Exam Cardiovascular Exam: REGULAR RHYTHM, RRR, +S1, +S2. absent: JVD - GI/Abdominal Exam GI & Abdominal Exam: Distended, Hypoactive Bowel Sounds Additional comments: midline surgical incision with robby in place, healing well, clean and intact lower portion of incision minimal serous drainage - Rectal Exam Rectal Exam: Deferred - Extremities Exam Extremities Exam: Pedal Edema (3 +) Additional comments: anasarca , Both upper and LE edema - Neurological Exam Additional comments: sedated on Fentanyl drip, grimaces to name calling trying to open eyes and tactile stimuli - Skin Skin Exam: Pallor, Warm Assessment and Plan - Assessment and Plan (Free Text) Assessment: 51 y/o male with PMH CABG 2 weeks ago, back pain, HTN, presented with severe sharp abdominal pain associated with nausea and emesis for two days. In ER, pt found to have intractable abdominal pain, disproportionate to exam. CT showed evidence of mesenteric ischemia/infarction. Seen by surgery in ER and taken to OR for emergent exploratory laparatomy by Dr. Sanchez that showed ischemic small bowel and right colon. No surgical intervention could be done, the patient was closed up and transferred to ICU for medical care. Currently intubated on MV , sedated on Fentanyl drip for sedation and pain control ,off pressors Poor Prognosis.Family is in [place] and they want everything to be done 1.Septic shock secondary to ischemic bowel, now with Multi-organ Failure Intubated on MV 18/550/5/55% FIO2 , sedated with fentanyl drip off levophed drip cont Fentanyl drip Critically ill with very poor prognosis cont Cefepime and IV Flagyl Family requesting everything to be done Full code 2. Ischemic/Necrotic bowel s/p exploratory laparatomy by general surgery showing necrotic small bowel and right colon No surgical intervention possible at this time Supportive care Heparin was stopped due to thrombocytopenia and posibility of HIT. Argatroban hepatically dosed started yesterday . APTT 94 this Am and bloody secretions noted from NGT andETT . Will hold Argatroban GI and surgery following 3.Elevated transaminases likely Shock Liver/decrease perfusion LFT-s trending down last 2 days likely secondary to mesenteric ischemia Continue to monitor NGT in place with bloody secretions 4. GOPI likely due to decrease perfusion Pt started on Hemodialysis on 10/08 Nephrology consult - Dr Claudia Law HD cath placed to right groin Had HD yesterday 5. CAD s/p CABG 2 weeks ago Cardio consult : Dr Putnam 6.Paroxysmal A Fib with RVR episode resolved, now back in SR received Amiodarone, off drip Cardio consulted 7. Thrombocytopenia d/c Heparin Follow up HIT antibody Plt 36 K Bloody secretions noted from NGT and ETT. Hold Argatroban 8. Acute blood loss anemia Hgb 9.2 9. Coagulopathy INR 1.6 supportive care 10.DVT prophylaxis SCD
[2016-10-12] MEDS: Cefepime 2 GM in Sodium Chloride 0.9% 100 ML IVPB SCH (10:10)
--- NOTE | 2016-10-12 10:55 | RAD ---
HISTORY: intubated COMPARISON: 10/11/2016 FINDINGS: The endotracheal tube terminates 5.5 cm proximal to the daryl. The nasogastric tube terminates in the stomach. LUNGS: Again seen are small layering pleural effusions and mild pulmonary venous congestion. There is subsegmental atelectasis in the right mid lung. PLEURA: No pneumothorax apparent. CARDIOVASCULAR: Stable in appearance. Status post CABG. OSSEOUS STRUCTURES: No significant abnormalities. VISUALIZED UPPER ABDOMEN: Normal. OTHER FINDINGS: None. IMPRESSION: No significant interval change in bilateral pleural effusions and pulmonary venous congestion.
[2016-10-12] MEDS: Pantoprazole 40 MG in Sodium Chloride 0.9% 100 ML IVPB SCH ×3 (11:09→21:06)
--- NOTE | 2016-10-12 11:38 | CP.PCM.PN ---
Subjective - Date & Time of Evaluation Date of Evaluation: 10/12/16 Time of Evaluation: 11:30 - Subjective Subjective: no overnight events Objective - Vital Signs/Intake and Output Vital Signs (last 24 hours): Temp Pulse Resp BP Pulse Ox 98.6 F 77 18 124/47 L 100 10/12/16 08:00 10/12/16 08:00 10/12/16 08:00 10/12/16 08:00 10/12/16 08:00 Intake and Output: 10/12/16 10/12/16 06:59 18:59 Intake Total 638 250 Output Total 160 Balance 478 250 - Medications Medications: Current Medications Acetaminophen (Tylenol 325mg Tab) 650 mg PO Q6 PRN PRN Reason: Fever >100.4 F Fentanyl Citrate 2,500 mcg/ (Dextrose) 250 mls @ 0 mls/hr IV .Q0M RUTHY; Per Protocol PRN Reason: Protocol Last Admin: 10/12/16 10:11 Dose: 3 mcg/kg/hr, 25.85 mls/hr Metronidazole (Flagyl 500mg/100ml Ns) 100 mls @ 100 mls/hr IVPB Q8 RUTHY Last Admin: 10/12/16 08:42 Dose: 100 mls/hr Cefepime HCl 2 gm/ Sodium (Chloride) 100 mls @ 100 mls/hr IVPB DAILY [facility] Last Admin: 10/12/16 10:10 Dose: 100 mls/hr Pantoprazole Sodium 40 mg/ (Sodium Chloride) 100 mls @ 20 mls/hr IVPB Q5H RUTHY PRN Reason: 8 MG/HR Last Admin: 10/12/16 11:09 Dose: 20 mls/hr Morphine Sulfate (Morphine) 2 mg IVP Q6 PRN PRN Reason: Pain, moderate (4-7) Last Admin: 10/10/16 12:36 Dose: 2 mg Ondansetron HCl (Zofran Inj) 4 mg IVP Q6 PRN PRN Reason: Nausea/Vomiting - Labs Labs: 10/12/16 07:00 10/12/16 07:00 PT 17.7 Seconds (9.8-13.1) H 10/11/16 04:46 INR 1.6 (0.9-1.2) H 10/11/16 04:46 APTT 99.5 Seconds (25.6-37.1) H* 10/12/16 10:30 - GI/Abdominal Exam GI & Abdominal Exam: Soft, Tenderness, Diminished Bowel Sounds Assessment and Plan - Assessment and Plan (Free Text) Assessment: 51 yo male with necrotic bowel will discuss with ICU, medicine, surgery plan of care supportive care for now
--- NOTE | 2016-10-12 12:19 | CP.PCM.PN ---
Subjective - Date & Time of Evaluation Date of Evaluation: 10/12/16 Time of Evaluation: 12:19 - Subjective Subjective: STILL INTUBATED AND BEING VENTILATED ATTEMPTS TO EXTUBATE IN PROGRESS NO NEW CLINICAL FINDINGS WILL CONTINUE PRESENT RX PROGNOSIS IS POOR Objective - Vital Signs/Intake and Output Vital Signs (last 24 hours): Temp Pulse Resp BP Pulse Ox 98.6 F 77 18 124/47 L 100 10/12/16 08:00 10/12/16 08:00 10/12/16 08:00 10/12/16 08:00 10/12/16 08:00 Intake and Output: 10/12/16 10/12/16 06:59 18:59 Intake Total 638 250 Output Total 160 Balance 478 250 - Medications Medications: Current Medications Acetaminophen (Tylenol 325mg Tab) 650 mg PO Q6 PRN PRN Reason: Fever >100.4 F Fentanyl Citrate 2,500 mcg/ (Dextrose) 250 mls @ 0 mls/hr IV .Q0M RUTHY; Per Protocol PRN Reason: Protocol Last Titration: 10/12/16 12:00 Dose: 2 mcg/kg/hr, 17.23 mls/hr Metronidazole (Flagyl 500mg/100ml Ns) 100 mls @ 100 mls/hr IVPB Q8 RUTHY Last Admin: 10/12/16 08:42 Dose: 100 mls/hr Cefepime HCl 2 gm/ Sodium (Chloride) 100 mls @ 100 mls/hr IVPB DAILY [facility] Last Admin: 10/12/16 10:10 Dose: 100 mls/hr Pantoprazole Sodium 40 mg/ (Sodium Chloride) 100 mls @ 20 mls/hr IVPB Q5H RUTHY PRN Reason: 8 MG/HR Last Admin: 10/12/16 11:09 Dose: 20 mls/hr Morphine Sulfate (Morphine) 2 mg IVP Q6 PRN PRN Reason: Pain, moderate (4-7) Last Admin: 10/10/16 12:36 Dose: 2 mg Ondansetron HCl (Zofran Inj) 4 mg IVP Q6 PRN PRN Reason: Nausea/Vomiting - Labs Labs: 10/12/16 07:00 10/12/16 07:00 PT 17.7 Seconds (9.8-13.1) H 10/11/16 04:46 INR 1.6 (0.9-1.2) H 10/11/16 04:46 APTT 99.5 Seconds (25.6-37.1) H* 10/12/16 10:30
--- NOTE | 2016-10-12 12:25 | CP.CCUPN ---
<Kenan Carbone - Last Filed: 10/12/16 14:54> CCU Subjective - Physician Review Events Since Last Encounter (Free Text): 10/12/16 13:22 Pt was seen and evaluated at bedside. He remains on the vent. Bloody suction is noted via NG tube. CPAP +8/+5/45%. He is responsive to calling his name and is responsive to pain. - Patient's partner and friends were seen at bedside, and were requesting the patient be transfered to a hospital in [place]. The family states that there are people in [place] that would financially support his care. Family was explained that there is a very extensive process to have this done and if they could make the arrangements. AB/113/28/7.4 Taylor output w/ 40 ml 10/12/16 14:49 CCU Objective - Vital Signs / Intake & Output Intake and Output (Last 8hrs): Intake & Output 10/11/16 10/12/16 10/12/16 22:59 06:59 14:59 Intake Total 587 501 250 Output Total 2130 110 Balance -1543 391 250 Intake: IV 462 501 250 Intake, Piggyback 100 Free Water Flush 25 Output: Gastric Amount 100 100 Stomach 100 100 Urine 30 10 Urethral (Taylor) 30 10 Ultrafiltrate 2000 - Physical Exam Head: Positive for: Atraumatic, Normocephalic Pupils: Positive for: PERRL Conjunctiva: Positive for: Normal. Negative for: Icteric Ears: Positive for: Normal Mouth: Positive for: Moist Mucous Membranes, Other (Dry Blood noticed in oral region. Blood noted via NG tube suction) Nose (External): Positive for: Atraumatic Nose (Internal): Positive for: Normal Inspection Neck: Positive for: Trachea Midline. Negative for: JVD Respiratory/Chest: Positive for: Decreased Breath Sounds, Rhonchi Cardiovascular: Positive for: Regular Rate and Rhythm, Tachycardic. Negative for: Murmurs, Rub Abdomen: Positive for: Tenderness (Generalized tenderness to palpate. Jumana seen intact on mid epigastrium, no pus or discharge noted), Distention, Guarding , Other (Abd dressing intact and dry, no BS heard. ) Genitourinary Male: Positive for: Testicle Swelling Upper Extremity: Positive for: Normal Inspection Lower Extremity: Positive for: Cyanosis, Other (B/l lower extremites are warm) Neurological: Positive for: Other (on ventilator, sedated, no response to verbal stimuli. Pt is responsive to painful stimuli) Skin: Positive for: Warm. Negative for: Rashes Psychiatric: Positive for: Other (sedated) - Medications Active Medications: Active Medications Generic Name Dose Route Start Last Admin Trade Name Freq PRN Reason Stop Dose Admin Acetaminophen 650 mg 10/06/16 15:27 Tylenol 325mg Tab PO Q6 PRN Fever >100.4 F Fentanyl Citrate 2,500 mcg/ 250 mls @ 0 mls/hr 10/08/16 11:15 10/12/16 12:00 Dextrose IV 2 mcg/kg/hr .Q0M RUTHY 17.23 mls/hr Protocol Titration Per Protocol Metronidazole 100 mls @ 100 mls/hr 10/08/16 11:15 10/12/16 08:42 Flagyl 500mg/100ml Ns IVPB 100 mls/hr Q8 RUTHY Administration Cefepime HCl 2 gm/ Sodium 100 mls @ 100 mls/hr 10/09/16 11:15 10/12/16 10:10 Chloride IVPB 100 mls/hr DAILY RUTHY Administration Pantoprazole Sodium 40 mg/ 100 mls @ 20 mls/hr 10/12/16 10:15 10/12/16 11:09 Sodium Chloride IVPB 20 mls/hr Q5H RUTHY Administration 8 MG/HR Morphine Sulfate 2 mg 10/08/16 09:00 10/10/16 12:36 Morphine IVP 2 mg Q6 PRN Administration Pain, moderate (4-7) Ondansetron HCl 4 mg 10/06/16 15:27 Zofran Inj IVP Q6 PRN Nausea/Vomiting - Patient Studies Lab Studies: Lab Studies 10/12/16 10/12/16 10/12/16 Range/Units 10:30 10:30 07:00 WBC (4.8-10.8) K/uL RBC (4.40-5.90) Mil/uL Hgb (12.0-18.0) g/dL Hct (35.0-51.0) % MCV (80.0-94.0) fl MCH (27.0-31.0) pg MCHC (33.0-37.0) g/dL RDW (11.5-14.5) % Plt Count (130-400) K/uL APTT 99.5 H* 94.1 H (25.6-37.1) Seconds pCO2 (35-45) mm/Hg pO2 (80-100) mm/Hg HCO3 (21-28) mmol/L ABG pH (7.35-7.45) ABG Total CO2 (22-28) mmol/L ABG O2 Saturation (95-98) % ABG O2 Content (15-23) ML/dL ABG Base Excess (-2.0-3.0) mmol/L ABG Hemoglobin (11.7-17.4) g/dL ABG Carboxyhemoglobin (0.5-1.5) % POC ABG HHb (Measured) (0.0-5.0) % ABG Methemoglobin (0.0-3.0) % ABG O2 Capacity (16-24) mL/dL Quirino Test A-a O2 Difference mm/Hg Hgb O2 Saturation (95.0-98.0) % Vent Mode Mechanical Rate FiO2 % Tidal Volume PEEP Sodium (132-148) mmol/l Potassium (3.6-5.0) MMOL/L Chloride (98-107) mmol/L Carbon Dioxide (22-30) mmol/L Anion Gap (10-20) BUN (9-20) mg/dl Creatinine (0.8-1.5) mg/dL Est GFR ( Amer) Est GFR (Non-Af Amer) Random Glucose (75-110) mg/dL Lactic Acid 2.8 H (0.7-2.1) MMOL/L Calcium (8.4-10.2) mg/dL 10/12/16 10/12/16 10/12/16 Range/Units 07:00 07:00 04:58 WBC 17.1 H (4.8-10.8) K/uL RBC 3.32 L (4.40-5.90) Mil/uL Hgb 9.2 L (12.0-18.0) g/dL Hct 28.3 L (35.0-51.0) % MCV 85.2 (80.0-94.0) fl MCH 27.6 (27.0-31.0) pg MCHC 32.4 L (33.0-37.0) g/dL RDW 16.2 H (11.5-14.5) % Plt Count 36 L (130-400) K/uL APTT (25.6-37.1) Seconds pCO2 42 (35-45) mm/Hg pO2 113 H (80-100) mm/Hg HCO3 28.6 H (21-28) mmol/L ABG pH 7.45 (7.35-7.45) ABG Total CO2 30.5 H (22-28) mmol/L ABG O2 Saturation 99.4 H (95-98) % ABG O2 Content 13.2 L (15-23) ML/dL ABG Base Excess 4.7 H (-2.0-3.0) mmol/L ABG Hemoglobin 9.6 L (11.7-17.4) g/dL ABG Carboxyhemoglobin 1.4 (0.5-1.5) % POC ABG HHb (Measured) 0.6 (0.0-5.0) % ABG Methemoglobin 1.4 (0.0-3.0) % ABG O2 Capacity 13.3 L (16-24) mL/dL Quirino Test Yes A-a O2 Difference 227.0 mm/Hg Hgb O2 Saturation 96.5 (95.0-98.0) % Vent Mode A/c Mechanical Rate 18 FiO2 55.0 % Tidal Volume 550 PEEP 5 Sodium 136 (132-148) mmol/l Potassium 4.1 (3.6-5.0) MMOL/L Chloride 95 L (98-107) mmol/L Carbon Dioxide 27 (22-30) mmol/L Anion Gap 18 (10-20) BUN 71 H (9-20) mg/dl Creatinine 6.6 H (0.8-1.5) mg/dL Est GFR ( Amer) 11 Est GFR (Non-Af Amer) 9 Random Glucose 108 (75-110) mg/dL Lactic Acid (0.7-2.1) MMOL/L Calcium 7.8 L (8.4-10.2) mg/dL 10/12/16 10/12/16 10/11/16 Range/Units 03:41 00:30 22:15 WBC (4.8-10.8) K/uL RBC (4.40-5.90) Mil/uL Hgb (12.0-18.0) g/dL Hct (35.0-51.0) % MCV (80.0-94.0) fl MCH (27.0-31.0) pg MCHC (33.0-37.0) g/dL RDW (11.5-14.5) % Plt Count (130-400) K/uL APTT 96.1 H D 85.4 H 82.8 H (25.6-37.1) Seconds pCO2 (35-45) mm/Hg pO2 (80-100) mm/Hg HCO3 (21-28) mmol/L ABG pH (7.35-7.45) ABG Total CO2 (22-28) mmol/L ABG O2 Saturation (95-98) % ABG O2 Content (15-23) ML/dL ABG Base Excess (-2.0-3.0) mmol/L ABG Hemoglobin (11.7-17.4) g/dL ABG Carboxyhemoglobin (0.5-1.5) % POC ABG HHb (Measured) (0.0-5.0) % ABG Methemoglobin (0.0-3.0) % ABG O2 Capacity (16-24) mL/dL Quirino Test A-a O2 Difference mm/Hg Hgb O2 Saturation (95.0-98.0) % Vent Mode Mechanical Rate FiO2 % Tidal Volume PEEP Sodium (132-148) mmol/l Potassium (3.6-5.0) MMOL/L Chloride (98-107) mmol/L Carbon Dioxide (22-30) mmol/L Anion Gap (10-20) BUN (9-20) mg/dl Creatinine (0.8-1.5) mg/dL Est GFR ( Amer) Est GFR (Non-Af Amer) Random Glucose (75-110) mg/dL Lactic Acid (0.7-2.1) MMOL/L Calcium (8.4-10.2) mg/dL 10/11/16 10/11/16 Range/Units 18:20 16:07 WBC (4.8-10.8) K/uL RBC (4.40-5.90) Mil/uL Hgb (12.0-18.0) g/dL Hct (35.0-51.0) % MCV (80.0-94.0) fl MCH (27.0-31.0) pg MCHC (33.0-37.0) g/dL RDW (11.5-14.5) % Plt Count (130-400) K/uL APTT 85.9 H D 66.8 H D (25.6-37.1) Seconds pCO2 (35-45) mm/Hg pO2 (80-100) mm/Hg HCO3 (21-28) mmol/L ABG pH (7.35-7.45) ABG Total CO2 (22-28) mmol/L ABG O2 Saturation (95-98) % ABG O2 Content (15-23) ML/dL ABG Base Excess (-2.0-3.0) mmol/L ABG Hemoglobin (11.7-17.4) g/dL ABG Carboxyhemoglobin (0.5-1.5) % POC ABG HHb (Measured) (0.0-5.0) % ABG Methemoglobin (0.0-3.0) % ABG O2 Capacity (16-24) mL/dL Quirino Test A-a O2 Difference mm/Hg Hgb O2 Saturation (95.0-98.0) % Vent Mode Mechanical Rate FiO2 % Tidal Volume PEEP Sodium (132-148) mmol/l Potassium (3.6-5.0) MMOL/L Chloride (98-107) mmol/L Carbon Dioxide (22-30) mmol/L Anion Gap (10-20) BUN (9-20) mg/dl Creatinine (0.8-1.5) mg/dL Est GFR ( Amer) Est GFR (Non-Af Amer) Random Glucose (75-110) mg/dL Lactic Acid (0.7-2.1) MMOL/L Calcium (8.4-10.2) mg/dL Laboratory Results - last 24 hr 10/11/16 10/11/16 10/11/16 16:07 18:20 22:15 WBC RBC Hgb Hct MCV MCH MCHC RDW Plt Count APTT 66.8 H D 85.9 H D 82.8 H pCO2 pO2 HCO3 ABG pH ABG Total CO2 ABG O2 Saturation ABG O2 Content ABG Base Excess ABG Hemoglobin ABG Carboxyhemoglobin POC ABG HHb (Measured) ABG Methemoglobin ABG O2 Capacity Quirino Test A-a O2 Difference Hgb O2 Saturation Vent Mode Mechanical Rate FiO2 Tidal Volume PEEP Sodium Potassium Chloride Carbon Dioxide Anion Gap BUN Creatinine Est GFR ( Amer) Est GFR (Non-Af Amer) Random Glucose Lactic Acid Calcium 10/12/16 10/12/16 10/12/16 00:30 03:41 04:58 WBC RBC Hgb Hct MCV MCH MCHC RDW Plt Count APTT 85.4 H 96.1 H D pCO2 42 pO2 113 H HCO3 28.6 H ABG pH 7.45 ABG Total CO2 30.5 H ABG O2 Saturation 99.4 H ABG O2 Content 13.2 L ABG Base Excess 4.7 H ABG Hemoglobin 9.6 L ABG Carboxyhemoglobin 1.4 POC ABG HHb (Measured) 0.6 ABG Methemoglobin 1.4 ABG O2 Capacity 13.3 L Quirino Test Yes A-a O2 Difference 227.0 Hgb O2 Saturation 96.5 Vent Mode A/c Mechanical Rate 18 FiO2 55.0 Tidal Volume 550 PEEP 5 Sodium Potassium Chloride Carbon Dioxide Anion Gap BUN Creatinine Est GFR ( Amer) Est GFR (Non-Af Amer) Random Glucose Lactic Acid Calcium 10/12/16 10/12/16 10/12/16 07:00 07:00 07:00 WBC 17.1 H RBC 3.32 L Hgb 9.2 L Hct 28.3 L MCV 85.2 MCH 27.6 MCHC 32.4 L RDW 16.2 H Plt Count 36 L APTT 94.1 H pCO2 pO2 HCO3 ABG pH ABG Total CO2 ABG O2 Saturation ABG O2 Content ABG Base Excess ABG Hemoglobin ABG Carboxyhemoglobin POC ABG HHb (Measured) ABG Methemoglobin ABG O2 Capacity Quirino Test A-a O2 Difference Hgb O2 Saturation Vent Mode Mechanical Rate FiO2 Tidal Volume PEEP Sodium 136 Potassium 4.1 Chloride 95 L Carbon Dioxide 27 Anion Gap 18 BUN 71 H Creatinine 6.6 H Est GFR ( Amer) 11 Est GFR (Non-Af Amer) 9 Random Glucose 108 Lactic Acid Calcium 7.8 L 10/12/16 10/12/16 10:30 10:30 WBC RBC Hgb Hct MCV MCH MCHC RDW Plt Count APTT 99.5 H* pCO2 pO2 HCO3 ABG pH ABG Total CO2 ABG O2 Saturation ABG O2 Content ABG Base Excess ABG Hemoglobin ABG Carboxyhemoglobin POC ABG HHb (Measured) ABG Methemoglobin ABG O2 Capacity Quirino Test A-a O2 Difference Hgb O2 Saturation Vent Mode Mechanical Rate FiO2 Tidal Volume PEEP Sodium Potassium Chloride Carbon Dioxide Anion Gap BUN Creatinine Est GFR ( Amer) Est GFR (Non-Af Amer) Random Glucose Lactic Acid 2.8 H Calcium Assessment/Plan - Assessment and Plan (Free Text) Assessment: 1) Septic Shock, secondary to ischemic bowl - Lactic acid has trended down to 2.8 - Continues to be intubated: Wean patient off today, Patient has been transitioned to CPAP today - Argatroban was held due to GI bleed noticed via NG tube. Today PTT is 99.5. Continue serial PTT, and will reasess when to restart the argatroban. - Pain controlled with fentanyl drip, will be decreased to have the patient be less sedated so he can make informed consent on is code status. - Pt is not a candidate for surgery, case has been discussed with Dr. Gallo and Dr. Anderson on rounds - Cont w/ Cefapime and IV Flagyl significant bandemia was noted - Poor prognosis - F/U w/ am procalcitonin, and ABG - Currently full code, will decrease patient and have him make an informed decision - Patients partner will try talk to family to make arrangements to transport patient back to [place], if possible. ( theoretical) 2.) Elevated liver enzymes most likely secondary to mesenteric ischemia - AST:379, ALT:212:-> trending down - Total bilirubin: 5.2, Seems to be trending up - GI consult appreciated - Continue to monitor 3. Renal failure secondary to decrease perfusion - Recieving HD yesterday, next session is tomorrow - BUN:71, Creatinine:6.6 - Dr. Zavaleta on consult 4) Resp failure secondary to bilateral effusion - Currently still intubated - Pt has been transitioned to CPAP. PSV:8, PEEP:5, Flow:1, FIO2:45% - Will try to exubate today if patient is able to tolerate it - F/U w/ am procalcitonin, and ABG 4) Metabolic Alkalosis ( Resolved) PH: 7.45, PCO2: 42, Bicarb:28.6 5) A Fib ( Resolved) - Resolved after receiving amiodarone. - Cardio consult appreciated 6) Upper GI Bleed - PTT today was 99.5 - Blood noted via NG suction - Hold Argatroban. - Continue serial PTT - reassess tomorrow 6) DVT prophylaxis - Heparin D/C b/c of possible HIT, fibrinogen was increased. - Hold argatriban b/c of GI bleed. - SCD <Corey Robledo - Last Filed: 10/12/16 16:36> Assessment/Plan - Assessment and Plan (Free Text) Plan: Attestation: Patient seen and examined at the bedside with Resident Dr. Ros Carbone; and I agree with his outline of plans and management as documented and discussed on AM rounds reflecting my review of all applicable clinical data, and participation in the care of the patient throughout the day in ICU; today, October 12, 2016.
[2016-10-12 17:32] LABS: BASO # 0.1 K/uL (0.0-0.2); BASO % 0.8 % (0.0-2.0); EOS # 0.2 K/uL (0.0-0.7); LYMPH # 1.7 K/uL (1.0-4.3); LYMPH % 9.4 % (20.0-40.0); MEAN CELL VOLUME 85.8 fl (80.0-94.0); MEAN CORPUSCULAR HEMOGLOBIN 27.4 pg (27.0-31.0); MEAN CORPUSCULAR HGB CONC 31.9 g/dL (33.0-37.0); MEAN PLATELET VOLUME 10.3 fl (7.2-11.7); MONO # 0.6 K/uL (0.0-0.8); MONO % 3.6 % (0.0-10.0); NEUT # 14.9 K/uL (1.8-7.0); NEUT % 85.2 % (50.0-75.0); NRBC % 2.6 % (0.0-0.0); RBC 3.3 Mil/uL (4.40-5.90); RED CELL DISTRIBUTION WIDTH 16.2 % (11.5-14.5); WHITE BLOOD COUNT 17.5 K/uL (4.8-10.8)
--- NOTE | 2016-10-12 20:12 | CP.PCM.PN ---
Subjective - Date & Time of Evaluation Date of Evaluation: 10/12/16 Time of Evaluation: 09:00 - Subjective Subjective: no changes intubated poor urine output lab reviewed multisystem failure ARF HD TTS as per ICU team RX Objective - Vital Signs/Intake and Output Vital Signs (last 24 hours): Temp Pulse Resp BP Pulse Ox 99.2 F 79 18 129/66 97 10/12/16 16:00 10/12/16 18:00 10/12/16 18:00 10/12/16 18:00 10/12/16 18:00 Intake and Output: 10/12/16 10/13/16 18:59 06:59 Intake Total 550 Balance 550 - Medications Medications: Current Medications Acetaminophen (Tylenol 325mg Tab) 650 mg PO Q6 PRN PRN Reason: Fever >100.4 F Fentanyl Citrate 2,500 mcg/ (Dextrose) 250 mls @ 0 mls/hr IV .Q0M RUTHY; Per Protocol PRN Reason: Protocol Last Titration: 10/12/16 18:45 Dose: 1.5 mcg/kg/hr, 12.92 mls/hr Metronidazole (Flagyl 500mg/100ml Ns) 100 mls @ 100 mls/hr IVPB Q8 RUTHY Last Admin: 10/12/16 16:08 Dose: 100 mls/hr Cefepime HCl 2 gm/ Sodium (Chloride) 100 mls @ 100 mls/hr IVPB DAILY RUTHY Last Admin: 10/12/16 10:10 Dose: 100 mls/hr Pantoprazole Sodium 40 mg/ (Sodium Chloride) 100 mls @ 20 mls/hr IVPB Q5H RUTHY PRN Reason: 8 MG/HR Last Admin: 10/12/16 16:06 Dose: 20 mls/hr Morphine Sulfate (Morphine) 2 mg IVP Q6 PRN PRN Reason: Pain, moderate (4-7) Last Admin: 10/10/16 12:36 Dose: 2 mg Ondansetron HCl (Zofran Inj) 4 mg IVP Q6 PRN PRN Reason: Nausea/Vomiting - Labs Labs: 10/12/16 17:28 10/12/16 07:00 PT 17.7 Seconds (9.8-13.1) H 10/11/16 04:46 INR 1.6 (0.9-1.2) H 10/11/16 04:46 APTT 99.5 Seconds (25.6-37.1) H* 10/12/16 10:30 Assessment and Plan (1) Acute renal failure (ARF) Status: Acute
[2016-10-13] MEDS: metroNIDAZOLE 500mg/100ml NS 100 ML IVPB SCH ×3 (01:02→16:17)
[2016-10-13] MEDS: Fentanyl Citrate 2,500 MCG in Dextrose 5% In Water 200 ML IV SCH ×2 (02:59→12:59)
[2016-10-13] MEDS: Pantoprazole 40 MG in Sodium Chloride 0.9% 100 ML IVPB SCH ×4 (02:59→19:40)
[2016-10-13 05:19] LABS: ABG ALLEN TEST YES; ARTERIAL BLOOD GAS HCO3 27.2 mmol/L (21-28); ARTERIAL BLOOD GAS HEMOGLOBIN 9.2 g/dL (11.7-17.4); ARTERIAL BLOOD GAS O2 CAPACITY 12.8 mL/dL (16-24); ARTERIAL BLOOD GAS O2 CONTENT 12.8 ML/dL (15-23); ARTERIAL BLOOD GAS O2 SAT 99.8 % (95-98); ARTERIAL BLOOD GAS PCO2 39 mm/Hg (35-45); ARTERIAL BLOOD GAS PH 7.45 (7.35-7.45); ARTERIAL BLOOD GAS PO2 123 mm/Hg (80-100); ARTERIAL BLOOD GAS TCO2 28.3 mmol/L (22-28)
[2016-10-13 07:18] LABS: HEMOGLOBIN 8.7 g/dL (12.0-18.0); MEAN CELL VOLUME 86.9 fl (80.0-94.0); MEAN CORPUSCULAR HEMOGLOBIN 27.1 pg (27.0-31.0); MEAN CORPUSCULAR HGB CONC 31.2 g/dL (33.0-37.0); RBC 3.2 Mil/uL (4.40-5.90); RED CELL DISTRIBUTION WIDTH 16.5 % (11.5-14.5); WHITE BLOOD COUNT 17.2 K/uL (4.8-10.8)
[2016-10-13 07:24] LABS: CALCIUM 7.7 mg/dL (8.4-10.2)
--- NOTE | 2016-10-13 07:30 | CP.PCM.PN ---
Subjective - Date & Time of Evaluation Date of Evaluation: 10/13/16 Time of Evaluation: 06:20 - Subjective Subjective: General surgery progress note for Dr. Michele Bryant, PGY-1 Pt S & E at bedside. VANE. Continues to be intubated- PRVC RR 18, PEEP 5, TV 550, 45% FiO2, not sedated, on Fentanyl drip, NGT in place w/200cc dark brown output, on Agatroban drip. Pt unable to move extremities, able to blink eyes in response to questions. Objective - Vital Signs/Intake and Output Vital Signs (last 24 hours): Temp Pulse Resp BP Pulse Ox 99.1 F 79 18 153/72 H 99 10/13/16 04:00 10/13/16 07:00 10/13/16 07:00 10/13/16 07:00 10/13/16 07:00 Intake and Output: 10/13/16 10/13/16 06:59 18:59 Intake Total 825 Output Total 180 Balance 645 - Medications Medications: Current Medications Acetaminophen (Tylenol 325mg Tab) 650 mg PO Q6 PRN PRN Reason: Fever >100.4 F Fentanyl Citrate 2,500 mcg/ (Dextrose) 250 mls @ 0 mls/hr IV .Q0M RUTHY; Per Protocol PRN Reason: Protocol Last Admin: 10/13/16 02:59 Dose: 2.5 mcg/kg/hr, 21.54 mls/hr Metronidazole (Flagyl 500mg/100ml Ns) 100 mls @ 100 mls/hr IVPB Q8 RUTHY Last Admin: 10/13/16 01:02 Dose: 100 mls/hr Cefepime HCl 2 gm/ Sodium (Chloride) 100 mls @ 100 mls/hr IVPB DAILY RUTHY Last Admin: 10/12/16 10:10 Dose: 100 mls/hr Pantoprazole Sodium 40 mg/ (Sodium Chloride) 100 mls @ 20 mls/hr IVPB Q5H RUTHY PRN Reason: 8 MG/HR Last Admin: 10/13/16 02:59 Dose: 20 mls/hr Morphine Sulfate (Morphine) 2 mg IVP Q6 PRN PRN Reason: Pain, moderate (4-7) Last Admin: 10/10/16 12:36 Dose: 2 mg Ondansetron HCl (Zofran Inj) 4 mg IVP Q6 PRN PRN Reason: Nausea/Vomiting - Labs Labs: 10/12/16 17:28 10/12/16 07:00 PT 17.7 Seconds (9.8-13.1) H 10/11/16 04:46 INR 1.6 (0.9-1.2) H 10/11/16 04:46 APTT 99.5 Seconds (25.6-37.1) H* 10/12/16 10:30 - Constitutional Appears: Toxic, No Acute Distress - Head Exam Head Exam: ATRAUMATIC, NORMAL INSPECTION, NORMOCEPHALIC - Eye Exam Eye Exam: EOMI - ENT Exam Additional comments: ET tube in place - Respiratory Exam Respiratory Exam: NORMAL BREATHING PATTERN. absent: Respiratory Distress - Cardiovascular Exam Cardiovascular Exam: REGULAR RHYTHM - GI/Abdominal Exam GI & Abdominal Exam: Distended, Firm, Tenderness, Hypoactive Bowel Sounds. absent: Guarding, Rigid Additional comments: Ex-lap incision without erythema or scant serous drainage on towel covering surgical site. - Extremities Exam Extremities Exam: Pedal Edema Additional comments: Right femoral PICC line in place - Neurological Exam Neurological Exam: Alert, Awake. absent: CN II-XII Intact Additional comments: able to blink answers to questions, unable to move extremities to simple commands - Psychiatric Exam Additional comments: intubated, not sedated, non verbal - Skin Skin Exam: Dry Additional comments: [email or web address] Assessment and Plan - Assessment and Plan (Free Text) Assessment: 51M w/Mesenteric Ischemia. S/p Ex lap with examination of entire bowel 7/8. POD# 7 Plan: No further surgical intervention at this time Pallative care consult Poor prognosis Will follow Further recs as per attending Will CHAU attending Annette, PGY-1
[2016-10-13 08:21] LABS: INR 3.6 (0.9-1.2); PARTIAL THROMBOPLASTIN TIME 89.2 Seconds (25.6-37.1); PROTHROMBIN TIME 42.2 Seconds (9.8-13.1)
[2016-10-13] MEDS: Cefepime 2 GM in Sodium Chloride 0.9% 100 ML IVPB SCH (08:59)
--- NOTE | 2016-10-13 10:08 | CP.PCM.PN ---
Subjective - Date & Time of Evaluation Date of Evaluation: 10/13/16 Time of Evaluation: 10:07 - Subjective Subjective: UNABLE TO TOLERATE WEANING ATTEMPTS STILL ON THE RESPIRATOR--ON 45% O2 NO CHANGE IN CLINICAL CONDITION GI BLEED NOTED WILL CONTINUE VENTILATOR CARE PROGNOSIS IS POOR Objective - Vital Signs/Intake and Output Vital Signs (last 24 hours): Temp Pulse Resp BP Pulse Ox 98.3 F 78 18 142/70 97 10/13/16 08:00 10/13/16 09:00 10/13/16 09:00 10/13/16 09:00 10/13/16 09:00 Intake and Output: 10/13/16 10/13/16 06:59 18:59 Intake Total 825 220 Output Total 180 Balance 645 220 - Medications Medications: Current Medications Acetaminophen (Tylenol 325mg Tab) 650 mg PO Q6 PRN PRN Reason: Fever >100.4 F Fentanyl Citrate 2,500 mcg/ (Dextrose) 250 mls @ 0 mls/hr IV .Q0M RUTHY; Per Protocol PRN Reason: Protocol Last Admin: 10/13/16 02:59 Dose: 2.5 mcg/kg/hr, 21.54 mls/hr Metronidazole (Flagyl 500mg/100ml Ns) 100 mls @ 100 mls/hr IVPB Q8 RUTHY Last Admin: 10/13/16 08:59 Dose: 100 mls/hr Cefepime HCl 2 gm/ Sodium (Chloride) 100 mls @ 100 mls/hr IVPB DAILY [facility] Last Admin: 10/13/16 08:59 Dose: 100 mls/hr Pantoprazole Sodium 40 mg/ (Sodium Chloride) 100 mls @ 20 mls/hr IVPB Q5H RUTHY PRN Reason: 8 MG/HR Last Admin: 10/13/16 09:00 Dose: 20 mls/hr Morphine Sulfate (Morphine) 2 mg IVP Q6 PRN PRN Reason: Pain, moderate (4-7) Last Admin: 10/10/16 12:36 Dose: 2 mg Ondansetron HCl (Zofran Inj) 4 mg IVP Q6 PRN PRN Reason: Nausea/Vomiting - Labs Labs: 10/13/16 05:30 10/13/16 05:30 PT 42.2 Seconds (9.8-13.1) H* D 10/13/16 05:30 INR 3.6 (0.9-1.2) H D 10/13/16 05:30 APTT 89.2 Seconds (25.6-37.1) H D 10/13/16 05:30
--- NOTE | 2016-10-13 10:18 | CP.PCM.PN ---
Subjective - Date & Time of Evaluation Date of Evaluation: 10/13/16 Time of Evaluation: 09:30 - Subjective Subjective: Pt remains intubated on Mech Vent, did not tolerate CPAP mode , back on PVR/AC mode responds to pain- grimaces Sedated- on Fentanyl drip Off pressors Off Agatroban NGT Poor prognosis Objective - Vital Signs/Intake and Output Vital Signs (last 24 hours): Temp Pulse Resp BP Pulse Ox 98.3 F 78 18 142/70 97 10/13/16 08:00 10/13/16 09:00 10/13/16 09:00 10/13/16 09:00 10/13/16 09:00 Intake and Output: 10/13/16 10/13/16 06:59 18:59 Intake Total 825 220 Output Total 180 Balance 645 220 - Medications Medications: Current Medications Acetaminophen (Tylenol 325mg Tab) 650 mg PO Q6 PRN PRN Reason: Fever >100.4 F Fentanyl Citrate 2,500 mcg/ (Dextrose) 250 mls @ 0 mls/hr IV .Q0M RUTHY; Per Protocol PRN Reason: Protocol Last Admin: 10/13/16 02:59 Dose: 2.5 mcg/kg/hr, 21.54 mls/hr Metronidazole (Flagyl 500mg/100ml Ns) 100 mls @ 100 mls/hr IVPB Q8 RUTHY Last Admin: 10/13/16 08:59 Dose: 100 mls/hr Cefepime HCl 2 gm/ Sodium (Chloride) 100 mls @ 100 mls/hr IVPB DAILY [facility] Last Admin: 10/13/16 08:59 Dose: 100 mls/hr Pantoprazole Sodium 40 mg/ (Sodium Chloride) 100 mls @ 20 mls/hr IVPB Q5H RUTHY PRN Reason: 8 MG/HR Last Admin: 10/13/16 09:00 Dose: 20 mls/hr Morphine Sulfate (Morphine) 2 mg IVP Q6 PRN PRN Reason: Pain, moderate (4-7) Last Admin: 10/10/16 12:36 Dose: 2 mg Ondansetron HCl (Zofran Inj) 4 mg IVP Q6 PRN PRN Reason: Nausea/Vomiting - Labs Labs: 10/13/16 05:30 10/13/16 05:30 PT 42.2 Seconds (9.8-13.1) H* D 10/13/16 05:30 INR 3.6 (0.9-1.2) H D 10/13/16 05:30 APTT 89.2 Seconds (25.6-37.1) H D 10/13/16 05:30 - Constitutional Appears: Other (Intubated on Mech vent) - Head Exam Head Exam: NORMAL INSPECTION, NORMOCEPHALIC - Eye Exam Eye Exam: Normal appearance, PERRL - ENT Exam ENT Exam: Mucous Membranes Dry, Normal External Ear Exam NGT - Respiratory Exam Respiratory Exam: Rales, Rhonchi Additional comments: Intubated on Vent - Cardiovascular Exam Cardiovascular Exam: REGULAR RHYTHM, +S1, +S2 - GI/Abdominal Exam GI & Abdominal Exam: Distended, Soft, Tenderness - Extremities Exam Extremities Exam: Pedal Edema - Neurological Exam Additional comments: Sedated, Intubated responds to painful stimuli - grimaces - Skin Skin Exam: Dry, Normal Color Assessment and Plan (1) Acute diffuse ischemia of intestine Status: Acute (2) Septic shock Status: Acute (3) Acute renal failure Status: Acute (4) Shock liver Status: Acute (5) CAD (coronary artery disease) Status: Acute (6) A-fib Status: Acute (7) Thrombocytopenia Status: Acute - Assessment and Plan (Free Text) Assessment: 51 y/o male with PMH CABG 2 weeks ago, back pain, HTN, presented with severe sharp abdominal pain associated with nausea and emesis for two days. In ER, pt found to have intractable abdominal pain, disproportionate to exam. CT showed evidence of mesenteric ischemia/infarction. Seen by surgery in ER and taken to OR for emergent exploratory laparatomy by Dr. Sanchez that showed ischemic small bowel and right colon. No surgical intervention could be done, the patient was closed up and transferred to ICU for medical care. Currently intubated on MV , sedated on Fentanyl drip for sedation and pain control ,off pressors Poor Prognosis. Family in [place] notified of pt's condition 1.Septic shock secondary to ischemic bowel, now with Multi-organ Failure Intubated on MV , sedated with fentanyl drip off levophed drip cont Fentanyl drip Critically ill with very poor prognosis cont Cefepime and IV Flagyl ID consult 2. Ischemic/Necrotic bowel s/p exploratory laparatomy by general surgery showing necrotic small bowel and right colon No surgical intervention possible at this time Supportive care Heparin was stopped due to thrombocytopenia and posibility of HIT. Argatroban hepatically dosed started . Bloody secretions noted from NGT and ETT - Argatroban held GI and surgery following 3.Elevated transaminases likely Shock Liver/decrease perfusion LFT-s trending down last 2 days likely secondary to mesenteric ischemia Continue to monitor NGT in place with bloody secretions 4. GOPI likely due to decrease perfusion Pt started on Hemodialysis on 10/08 Nephrology consult - Dr Taylor Temp HD cath placed to right groin cont HD 5. CAD s/p CABG 2 weeks ago Cardio consult : Dr Putnam 6.Paroxysmal A Fib with RVR episode resolved, now back in SR received Amiodarone, off drip Cardio consulted 7. Thrombocytopenia d/c Heparin Follow up HIT antibody Bloody secretions noted from NGT and ETT. Hold Argatroban 8. Acute blood loss anemia Hgb 8.7 9. Coagulopathy INR 1.6 supportive care 10.DVT prophylaxis SCD
--- NOTE | 2016-10-13 10:42 | RAD ---
HISTORY: intubated/ ETT placement/ re-evaluate COMPARISON: Chest x-ray performed 10/12/16 TECHNIQUE: Chest, one view. FINDINGS: Examination limited by habitus, patient obliquity, and hypoinflation. Multiple external wires and leads obscure evaluation of the underlying parenchyma. Endotracheal tube terminates approximately 6.6 cm above the daryl. Nasogastric tube extends expected location of the stomach. Nasogastric tube extends expected location of the stomach. LUNGS: Small bilateral pleural effusions. Pulmonary venous congestion. Discoid atelectasis, right midlung zone. No definite pneumothorax. Please note that chest x-ray has limited sensitivity for the detection of pulmonary masses. CARDIOVASCULAR: Median sternotomy wires. Cardiomegaly. Ectatic aorta. OSSEOUS STRUCTURES: Degenerative changes. VISUALIZED UPPER ABDOMEN: Unremarkable. OTHER FINDINGS: None. IMPRESSION: Limited study. Endotracheal tube terminates approximately 6.6 cm above the daryl. Nasogastric tube extends expected location of the stomach. Nasogastric tube extends expected location of the stomach. Small bilateral pleural effusions. Pulmonary venous congestion. Discoid atelectasis, right midlung zone. Cardiomegaly. Ectatic aorta. Atherosclerotic calcifications. Median sternotomy wires.
--- NOTE | 2016-10-13 13:41 | CP.PCM.CON ---
History of Present Illness - History of Present Illness History of Present Illness: Infectious Disease Consultation Note- asked to see this patient today at the request of for sepsis and leukocytosis. HPI- History obtained from medical chart and nurse and hospitalist as pt. is intubated and sedated. Patient is a 51 year old male from [place] with pmh OF HTN, and CABG done 2 weeks ago in [facility] who was admitted on with severe abdominal pain and nausea and vomiting and had abd CT which revealed mesenteric ischemia and pt. was taken emergently to [facility] ex [facility] and was found to have ischemic small bowel and right colon and no surgical intervention could be done and pt. was transferred to ICU and has remained on the vent and fentanyl since then and also has developed Acute renal insufficiency and is on HD now through right femoral HD access and i'm asked today to evaluate with antibiotic management since pt. continues to have leukocytosis despite being on antibiotics. pt. is currently sedated and intubated in ICU. does open his eyes when his name is called . all med records from here, imaging and blood work reviewed. Review of Systems - Review of Systems Review of Systems: ROS- unable to obtain as pt. is sedated but does open his eyes in pain when abdomen region is touched. Past Patient History - Past Medical History & Family History Past Medical History?: Yes - Past Social History Smoking Status: Current Some Days Smoker - CARDIAC Hx Cardiac Disorders: Yes Hx Hypertension: Yes Other/Comment: CABG 2 wks ago - PULMONARY Hx Respiratory Disorders: No Other/Comment: smoker - NEUROLOGICAL Hx Neurological Disorder: No Other/Comment: headaches - HEENT Hx HEENT Problems: No - RENAL Hx Chronic Kidney Disease: No - ENDOCRINE/METABOLIC Hx Endocrine Disorders: No - HEMATOLOGICAL/ONCOLOGICAL Hx Blood Disorders: No - INTEGUMENTARY Hx Dermatological Problems: No - MUSCULOSKELETAL/RHEUMATOLOGICAL Hx Musculoskeletal Disorders: No Hx Falls: No - GASTROINTESTINAL Hx Gastrointestinal Disorders: No Other/Comment: kidney stones - GENITOURINARY/GYNECOLOGICAL Hx Genitourinary Disorders: No - PSYCHIATRIC Hx Psychophysiologic Disorder: No Hx Substance Use: No - SURGICAL HISTORY Hx Surgeries: Yes (cabg 2 wks ago) Hx Coronary Artery Bypass Graft: Yes (about 2 weeks ago) - ANESTHESIA Hx Anesthesia: Yes Hx Anesthesia Reactions: No Hx Malignant Hyperthermia: No Meds Allergies/Adverse Reactions: Allergies Allergy/AdvReac Type Severity Reaction Status Date / Time heparin Allergy HIT- Verified 10/11/16 20:26 Bleeding - Medications Medications: Current Medications Acetaminophen (Tylenol 325mg Tab) 650 mg PO Q6 PRN PRN Reason: Fever >100.4 F Fentanyl Citrate 2,500 mcg/ (Dextrose) 250 mls @ 0 mls/hr IV .Q0M RUTHY; Per Protocol PRN Reason: Protocol Last Admin: 10/13/16 12:59 Dose: 2.5 mcg/kg/hr, 21.54 mls/hr Metronidazole (Flagyl 500mg/100ml Ns) 100 mls @ 100 mls/hr IVPB Q8 RUTHY Last Admin: 10/13/16 08:59 Dose: 100 mls/hr Cefepime HCl 2 gm/ Sodium (Chloride) 100 mls @ 100 mls/hr IVPB DAILY [facility] Last Admin: 10/13/16 08:59 Dose: 100 mls/hr Pantoprazole Sodium 40 mg/ (Sodium Chloride) 100 mls @ 20 mls/hr IVPB Q5H RUTHY PRN Reason: 8 MG/HR Last Admin: 10/13/16 09:00 Dose: 20 mls/hr Morphine Sulfate (Morphine) 2 mg IVP Q6 PRN PRN Reason: Pain, moderate (4-7) Last Admin: 10/10/16 12:36 Dose: 2 mg Ondansetron HCl (Zofran Inj) 4 mg IVP Q6 PRN PRN Reason: Nausea/Vomiting Physical Exam - Constitutional Additional comments: acutely ill on the vent , sedated NGT - Head Exam Head Exam: ATRAUMATIC - ENT Exam Additional comments: ET tube in place, NGT in place draining sanguinous fluid - Respiratory Exam Additional comments: on the vent decreased breath sounds bibasilar - Cardiovascular Exam Cardiovascular Exam: RRR, +S1, +S2 Additional comments: CABG site clean/dry /intact no erythema - GI/Abdominal Exam GI & Abdominal Exam: Distended Additional comments: hard to touch, + tendenress, minimal bowel sounds - Extremities Exam Extremities exam: Positive for: normal inspection - Neurological Exam Additional comments: sedated but does open his eyes when his name is called Results - Vital Signs Recent Vital Signs: Last Vital Signs Temp 98.8 F 10/13/16 12:00 Pulse 80 10/13/16 12:00 Resp 18 10/13/16 12:00 BP 149/73 10/13/16 12:00 Pulse Ox 97 10/13/16 12:00 - Labs Result Diagrams: 10/13/16 05:30 10/13/16 05:30 Labs: Laboratory Results - last 24 hr 10/12/16 10/12/16 10/13/16 07:00 17:28 05:11 WBC 17.5 H RBC 3.30 L Hgb 9.0 L Hct 28.3 L MCV 85.8 MCH 27.4 MCHC 31.9 L RDW 16.2 H Plt Count 42 L MPV 10.3 Neut % (Auto) 85.2 H Lymph % (Auto) 9.4 L [place] % (Auto) 3.6 Eos % (Auto) 1.0 Baso % (Auto) 0.8 Neut # 14.9 H Lymph # 1.7 [place] # 0.6 Eos # 0.2 Baso # 0.1 PT INR APTT pCO2 39 pO2 123 H HCO3 27.2 ABG pH 7.45 ABG Total CO2 28.3 H ABG O2 Saturation 99.8 H ABG O2 Content 12.8 L ABG Base Excess 2.9 ABG Hemoglobin 9.2 L ABG Carboxyhemoglobin 1.6 H POC ABG HHb (Measured) 0.2 ABG Methemoglobin 1.6 ABG O2 Capacity 12.8 L Quirino Test Yes A-a O2 Difference 149.0 Hgb O2 Saturation 96.7 Vent Mode Prvc/ac Mechanical Rate 18 FiO2 45.0 Tidal Volume 550 PEEP 5 Sodium Potassium Chloride Carbon Dioxide Anion Gap BUN Creatinine Est GFR ( Amer) Est GFR (Non-Af Amer) Random Glucose Calcium Procalcitonin 66.39 H 10/13/16 10/13/16 10/13/16 05:30 05:30 05:30 WBC 17.2 H RBC 3.20 L Hgb 8.7 L Hct 27.8 L MCV 86.9 MCH 27.1 MCHC 31.2 L RDW 16.5 H Plt Count 45 L MPV Neut % (Auto) Lymph % (Auto) [place] % (Auto) Eos % (Auto) Baso % (Auto) Neut # Lymph # [place] # Eos # Baso # PT 42.2 H* D INR 3.6 H D APTT 89.2 H D pCO2 pO2 HCO3 ABG pH ABG Total CO2 ABG O2 Saturation ABG O2 Content ABG Base Excess ABG Hemoglobin ABG Carboxyhemoglobin POC ABG HHb (Measured) ABG Methemoglobin ABG O2 Capacity Quirino Test A-a O2 Difference Hgb O2 Saturation Vent Mode Mechanical Rate FiO2 Tidal Volume PEEP Sodium 137 Potassium 4.4 Chloride 96 L Carbon Dioxide 24 Anion Gap 21 H BUN 101 H* D Creatinine 7.6 H* Est GFR ( Amer) 9 Est GFR (Non-Af Amer) 8 Random Glucose 117 H Calcium 7.7 L Procalcitonin Laboratory Results - last 72 hr 10/11/16 10/11/16 10/11/16 04:46 04:46 04:46 WBC 18.3 H RBC 3.35 L Hgb 9.2 L Hct 28.8 L MCV 85.9 MCH 27.5 MCHC 32.0 L RDW 16.1 H Plt Count 37 L MPV 9.2 Neut % (Auto) 86.4 H Lymph % (Auto) 8.0 L [place] % (Auto) 3.7 Eos % (Auto) 1.5 Baso % (Auto) 0.4 Neut # 15.8 H Lymph # 1.5 [place] # 0.7 Eos # 0.3 Baso # 0.1 PT 17.7 H INR 1.6 H APTT 43.2 H Fibrinogen 601 H* pCO2 pO2 HCO3 ABG pH ABG Total CO2 ABG O2 Saturation ABG O2 Content ABG Base Excess ABG Hemoglobin ABG Carboxyhemoglobin POC ABG HHb (Measured) ABG Methemoglobin ABG O2 Capacity Quirino Test A-a O2 Difference Hgb O2 Saturation Vent Mode Mechanical Rate FiO2 Tidal Volume PEEP Sodium 135 Potassium 3.8 Chloride 90 L Carbon Dioxide 31 H Anion Gap 18 BUN 70 H Creatinine 6.1 H Est GFR ( Amer) 12 Est GFR (Non-Af Amer) 10 Random Glucose 89 Lactic Acid Calcium 7.4 L Total Bilirubin 5.2 H AST 379 H D ALT 212 H D Alkaline Phosphatase 158 H Total Protein 5.6 L Albumin 2.4 L Globulin 3.2 Albumin/Globulin Ratio 0.8 L Procalcitonin Blood Type Antibody Screen BBK History Checked 10/11/16 10/11/16 10/11/16 04:55 06:13 16:07 WBC RBC Hgb Hct MCV MCH MCHC RDW Plt Count MPV Neut % (Auto) Lymph % (Auto) [place] % (Auto) Eos % (Auto) Baso % (Auto) Neut # Lymph # [place] # Eos # Baso # PT INR APTT 66.8 H D Fibrinogen pCO2 42 pO2 194 H HCO3 31.8 H ABG pH 7.50 H ABG Total CO2 34.1 H ABG O2 Saturation 99.7 H ABG O2 Content 13.4 L ABG Base Excess 8.8 H ABG Hemoglobin 9.5 L ABG Carboxyhemoglobin 1.2 POC ABG HHb (Measured) 0.3 ABG Methemoglobin 1.5 ABG O2 Capacity 13.4 L Quirino Test Yes A-a O2 Difference 288.0 Hgb O2 Saturation 97.1 Vent Mode A/c Mechanical Rate 18 FiO2 75.0 Tidal Volume 550 PEEP 5 Sodium Potassium Chloride Carbon Dioxide Anion Gap BUN Creatinine Est GFR ( Amer) Est GFR (Non-Af Amer) Random Glucose Lactic Acid Calcium Total Bilirubin AST ALT Alkaline Phosphatase Total Protein Albumin Globulin Albumin/Globulin Ratio Procalcitonin Blood Type O POSITIVE Antibody Screen Negative BBK History Checked Patient has bt 10/11/16 10/11/16 10/12/16 18:20 22:15 00:30 WBC RBC Hgb Hct MCV MCH MCHC RDW Plt Count MPV Neut % (Auto) Lymph % (Auto) [place] % (Auto) Eos % (Auto) Baso % (Auto) Neut # Lymph # [place] # Eos # Baso # PT INR APTT 85.9 H D 82.8 H 85.4 H Fibrinogen pCO2 pO2 HCO3 ABG pH ABG Total CO2 ABG O2 Saturation ABG O2 Content ABG Base Excess ABG Hemoglobin ABG Carboxyhemoglobin POC ABG HHb (Measured) ABG Methemoglobin ABG O2 Capacity Quirino Test A-a O2 Difference Hgb O2 Saturation Vent Mode Mechanical Rate FiO2 Tidal Volume PEEP Sodium Potassium Chloride Carbon Dioxide Anion Gap BUN Creatinine Est GFR ( Amer) Est GFR (Non-Af Amer) Random Glucose Lactic Acid Calcium Total Bilirubin AST ALT Alkaline Phosphatase Total Protein Albumin Globulin Albumin/Globulin Ratio Procalcitonin Blood Type Antibody Screen BBK History Checked 10/12/16 10/12/16 10/12/16 03:41 04:58 07:00 WBC RBC Hgb Hct MCV MCH MCHC RDW Plt Count MPV Neut % (Auto) Lymph % (Auto) [place] % (Auto) Eos % (Auto) Baso % (Auto) Neut # Lymph # [place] # Eos # Baso # PT INR APTT 96.1 H D Fibrinogen pCO2 42 pO2 113 H HCO3 28.6 H ABG pH 7.45 ABG Total CO2 30.5 H ABG O2 Saturation 99.4 H ABG O2 Content 13.2 L ABG Base Excess 4.7 H ABG Hemoglobin 9.6 L ABG Carboxyhemoglobin 1.4 POC ABG HHb (Measured) 0.6 ABG Methemoglobin 1.4 ABG O2 Capacity 13.3 L Quirnio Test Yes A-a O2 Difference 227.0 Hgb O2 Saturation 96.5 Vent Mode A/c Mechanical Rate 18 FiO2 55.0 Tidal Volume 550 PEEP 5 Sodium Potassium Chloride Carbon Dioxide Anion Gap BUN Creatinine Est GFR ( Amer) Est GFR (Non-Af Amer) Random Glucose Lactic Acid Calcium Total Bilirubin AST ALT Alkaline Phosphatase Total Protein Albumin Globulin Albumin/Globulin Ratio Procalcitonin 66.39 H Blood Type Antibody Screen BBK History Checked 10/12/16 10/12/16 10/12/16 07:00 07:00 07:00 WBC 17.1 H RBC 3.32 L Hgb 9.2 L Hct 28.3 L MCV 85.2 MCH 27.6 MCHC 32.4 L RDW 16.2 H Plt Count 36 L MPV Neut % (Auto) Lymph % (Auto) [place] % (Auto) Eos % (Auto) Baso % (Auto) Neut # Lymph # [place] # Eos # Baso # PT INR APTT 94.1 H Fibrinogen pCO2 pO2 HCO3 ABG pH ABG Total CO2 ABG O2 Saturation ABG O2 Content ABG Base Excess ABG Hemoglobin ABG Carboxyhemoglobin POC ABG HHb (Measured) ABG Methemoglobin ABG O2 Capacity Quirino Test A-a O2 Difference Hgb O2 Saturation Vent Mode Mechanical Rate FiO2 Tidal Volume PEEP Sodium 136 Potassium 4.1 Chloride 95 L Carbon Dioxide 27 Anion Gap 18 BUN 71 H Creatinine 6.6 H Est GFR ( Amer) 11 Est GFR (Non-Af Amer) 9 Random Glucose 108 Lactic Acid Calcium 7.8 L Total Bilirubin AST ALT Alkaline Phosphatase Total Protein Albumin Globulin Albumin/Globulin Ratio Procalcitonin Blood Type Antibody Screen BBK History Checked 10/12/16 10/12/16 10/12/16 10:30 10:30 17:28 WBC 17.5 H RBC 3.30 L Hgb 9.0 L Hct 28.3 L MCV 85.8 MCH 27.4 MCHC 31.9 L RDW 16.2 H Plt Count 42 L MPV 10.3 Neut % (Auto) 85.2 H Lymph % (Auto) 9.4 L [place] % (Auto) 3.6 Eos % (Auto) 1.0 Baso % (Auto) 0.8 Neut # 14.9 H Lymph # 1.7 [place] # 0.6 Eos # 0.2 Baso # 0.1 PT INR APTT 99.5 H* Fibrinogen pCO2 pO2 HCO3 ABG pH ABG Total CO2 ABG O2 Saturation ABG O2 Content ABG Base Excess ABG Hemoglobin ABG Carboxyhemoglobin POC ABG HHb (Measured) ABG Methemoglobin ABG O2 Capacity Quirino Test A-a O2 Difference Hgb O2 Saturation Vent Mode Mechanical Rate FiO2 Tidal Volume PEEP Sodium Potassium Chloride Carbon Dioxide Anion Gap BUN Creatinine Est GFR ( Amer) Est GFR (Non-Af Amer) Random Glucose Lactic Acid 2.8 H Calcium Total Bilirubin AST ALT Alkaline Phosphatase Total Protein Albumin Globulin Albumin/Globulin Ratio Procalcitonin Blood Type Antibody Screen BBK History Checked 10/13/16 10/13/16 10/13/16 05:11 05:30 05:30 WBC 17.2 H RBC 3.20 L Hgb 8.7 L Hct 27.8 L MCV 86.9 MCH 27.1 MCHC 31.2 L RDW 16.5 H Plt Count 45 L MPV Neut % (Auto) Lymph % (Auto) [place] % (Auto) Eos % (Auto) Baso % (Auto) Neut # Lymph # [place] # Eos # Baso # PT 42.2 H* D INR 3.6 H D APTT 89.2 H D Fibrinogen pCO2 39 pO2 123 H HCO3 27.2 ABG pH 7.45 ABG Total CO2 28.3 H ABG O2 Saturation 99.8 H ABG O2 Content 12.8 L ABG Base Excess 2.9 ABG Hemoglobin 9.2 L ABG Carboxyhemoglobin 1.6 H POC ABG HHb (Measured) 0.2 ABG Methemoglobin 1.6 ABG O2 Capacity 12.8 L Quirino Test Yes A-a O2 Difference 149.0 Hgb O2 Saturation 96.7 Vent Mode Prvc/ac Mechanical Rate 18 FiO2 45.0 Tidal Volume 550 PEEP 5 Sodium Potassium Chloride Carbon Dioxide Anion Gap BUN Creatinine Est GFR ( Amer) Est GFR (Non-Af Amer) Random Glucose Lactic Acid Calcium Total Bilirubin AST ALT Alkaline Phosphatase Total Protein Albumin Globulin Albumin/Globulin Ratio Procalcitonin Blood Type Antibody Screen BBK History Checked 10/13/16 05:30 WBC RBC Hgb Hct MCV MCH MCHC RDW Plt Count MPV Neut % (Auto) Lymph % (Auto) [place] % (Auto) Eos % (Auto) Baso % (Auto) Neut # Lymph # [place] # Eos # Baso # PT INR APTT Fibrinogen pCO2 pO2 HCO3 ABG pH ABG Total CO2 ABG O2 Saturation ABG O2 Content ABG Base Excess ABG Hemoglobin ABG Carboxyhemoglobin POC ABG HHb (Measured) ABG Methemoglobin ABG O2 Capacity Quirino Test A-a O2 Difference Hgb O2 Saturation Vent Mode Mechanical Rate FiO2 Tidal Volume PEEP Sodium 137 Potassium 4.4 Chloride 96 L Carbon Dioxide 24 Anion Gap 21 H BUN 101 H* D Creatinine 7.6 H* Est GFR ( Amer) 9 Est GFR (Non-Af Amer) 8 Random Glucose 117 H Lactic Acid Calcium 7.7 L Total Bilirubin AST ALT Alkaline Phosphatase Total Protein Albumin Globulin Albumin/Globulin Ratio Procalcitonin Blood Type Antibody Screen BBK History Checked Microbiology 10/06/16 11:10 Nose MRSA Culture (Admit) - Final MRSA NOT DETECTED Accession No. : [id number] Patient Name / ID : CORTNEY MONTILLA / [id number] Exam Date : 10/13/2016 07:29:01 ( Approved ) Study Comment : Sex / Age : M / 51Y Creator : Melissa Lorenzo MD Dictator : Melissa Lorenzo MD Business Continuity Strategy Director : Information Technology Professor : Melissa Lorenzo MD Approver2 : Report Date : 10/13/2016 10:37:15 My Comment : HISTORY: intubated/ ETT placement/ re-evaluate COMPARISON: Chest x-ray performed 10/12/16 TECHNIQUE: Chest, one view. FINDINGS: Examination limited by habitus, patient obliquity, and hypoinflation. Multiple external wires and leads obscure evaluation of the underlying parenchyma. Endotracheal tube terminates approximately 6.6 cm above the daryl. Nasogastric tube extends expected location of the stomach. Nasogastric tube extends expected location of the stomach. LUNGS: Small bilateral pleural effusions. Pulmonary venous congestion. Discoid atelectasis, right midlung zone. No definite pneumothorax. Please note that chest x-ray has limited sensitivity for the detection of pulmonary masses. CARDIOVASCULAR: Median sternotomy wires. Cardiomegaly. Ectatic aorta. OSSEOUS STRUCTURES: Degenerative changes. VISUALIZED UPPER ABDOMEN: Unremarkable. OTHER FINDINGS: None. IMPRESSION: Limited study. Endotracheal tube terminates approximately 6.6 cm above the daryl. Nasogastric tube extends expected location of the stomach. Nasogastric tube extends expected location of the stomach. Small bilateral pleural effusions. Pulmonary venous congestion. Discoid atelectasis, right midlung zone. Cardiomegaly. Ectatic aorta. Atherosclerotic calcifications. Median sternotomy wires. Accession No. : [id number] Patient Name / ID : CORTNEY MONTILLA / [id number] Exam Date : 10/06/2016 14:32:57 ( Approved ) Study Comment : Sex / Age : M / 51Y Creator : Del Boswell MD Dictator : Del Boswell MD Business Continuity Strategy Director : Information Technology Professor : Del Boswell MD Approver2 : Report Date : 10/06/2016 15:59:35 My Comment : PROCEDURE: CT abdomen pelvis dated 10/06/2016 HISTORY: SBO COMPARISON: Comparison made with plain film radiographs of the abdomen obtained earlier same day TECHNIQUE: Contiguous axial images of the abdomen and pelvis. Oral contrast was administered. No IV contrast given. Coronal and Sagittal reformats generated. Radiation dose: Total exam DLP = 1215.93 mGy-cm. This CT exam was performed using one or more of the following dose reduction techniques: Automated exposure control, adjustment of the mA and/or kV according to patient size, and/or use of iterative reconstruction technique. FINDINGS: LOWER THORAX: There are bilateral effusions and mild bibasilar atelectasis left greater than right. . There appears be a small pericardial effusion as well. In situ NGT, the tip of which is located in the stomach. LIVER: Diffuse portal venous air present. No obvious renal mass or collection GALLBLADDER AND BILE DUCTS: Gallbladder is physiologically distended. No evidence of intraluminal gallbladder calculi. PANCREAS: The pancreas slightly atrophic and fatty replaced. SPLEEN: Spleen exhibits normal size and attenuation pattern without mass collection or calcification. ADRENALS: No adrenal lesions. KIDNEYS AND URETERS: Kidneys exhibit relatively symmetric size. Small calcifications are present within both renal pelves. No evidence of hydronephrosis. There is a rounded approximately 13 mm exophytic masslike density arising from the posterior and medial aspect mid to lower pole of the right kidney with Hounsfield units in the mid 30s. Rule out hyperdense cyst versus solid mass. Followup study recommended to exclude malignant lesion. BLADDER: Urinary bladder is incompletely distended which may account for thick-walled appearance. Muscular hypertrophy may contribute. Rule out cystitis REPRODUCTIVE: Prostate gland measures approximately 3.3 cm. Prostatic calcifications are present. APPENDIX: Normal-appearing appendix of best seen on coronal image number [id number]. BOWEL: Evaluation of the bowel is limited due to the lack of oral contrast material. Multiple loops of small bowel exhibit mild dilatation and extensive pneumatosis intestinalis. Findings are of uncertain etiology however differential diagnosis would include bowel small-bowel obstruction,, bowel ischemia, infection/inflammatory bowel disease to name a few possibilities. . There are multiple colonic diverticula seen along sigmoid colon however no definitive radiographic evidence of acute diverticulitis. Few scattered colonic diverticula seen along the at descending colon. Mild diffuse submucosal fatty deposition of nonspecific. Rule out the sequela of chronic inflammation. PERITONEUM: Air is seen diffusely within the mesenteric venous system. . No definitive radiographic evidence of free fluid. LYMPH NODES: Unremarkable. No enlarged lymph nodes. VASCULATURE: No evidence of abdominal aortic aneurysm. BONES: Mild multilevel degenerative spondylosis of the lower thoracic and lumbar spine. OTHER FINDINGS: Bilateral fat containing inguinal hernias are present. IMPRESSION: The multiple dilated loops of small bowel which exhibit pneumatosis intestinalis and extensive portal venous air. Rule out bowel ischemia/ infarction, infection or inflammatory bowel disease. . . Emergent surgical consultation recommended Diverticulosis without definitive radiographic evidence of acute diverticulitis. Bilateral effusions and bibasilar atelectasis left larger than right. Small pericardial effusion. Cardiomegaly. Small exophytic hyperdense masslike lesion arising from the right kidney of; rule out hyperdense cyst versus a mass. Followup studies recommended to further characterize this lesion. Nonobstructing bilateral renal calculi. See above discussion for additional findings and details. These findings discussed with Dr. Hart and Dr. Crane 3:35 p.m. with written down and read back verification Assessment & Plan (1) Acute diffuse ischemia of intestine Status: Acute (2) Acute renal failure Status: Acute (3) Hx of CABG Status: Acute (4) CAD (coronary artery disease) Status: Acute (5) Shock liver Status: Acute (6) Severe sepsis Status: Acute - Assessment and Plan (Free Text) Assessment: A/P- 51 year old male with HTN s/p CABG 2 weeks ago was admitted on 10/06/2016 with abd pain found to have mesenteric ischemia, non operable and has remianed on the vent since post ex lap in ICU and has developed ARF on emergent HD , sepsis , shock liver, respiratory dailure and septic. the etiology of the sepiss and leukocytosis multifactorial with mesenteric ischemia and respiratory failure. Etiology of the mesenteric ischemis unclear possible thrombus since had recent CABG vs underperfusion of the gut post CABG . patietn in mutiorgan failure secondary to hypoperfusion. ARF shock liver resp failure afebrile but continues to have elevated leukocytosis. no blood or urine cx on the system. 1.mesenteric ischemia 2. ARF on HD 3.shock liver 4.sepsis 5.respiratory failure 6. CAD s/p CABG 7. leukocytosis plan- check blood cx stat. check urine cx and UA. check sputum cx from the ET tube. place on broad spectrum antibiotics. advise to d/c cefepime. Plca on meropenem ( renal dose). start Iv vancomycin renal dose. All above d/w Hospitalist . Patient condition guarded. Thank you for allowing me to take part in the care of this patient. ICU time 70 minutes.
--- NOTE | 2016-10-13 15:24 | CP.PCM.PN ---
Subjective - Date & Time of Evaluation Date of Evaluation: 10/13/16 Time of Evaluation: 15:24 - Subjective Subjective: renal progress note seen on dialysis Objective - Vital Signs/Intake and Output Vital Signs (last 24 hours): Temp Pulse Resp BP Pulse Ox 98.8 F 79 18 145/69 95 10/13/16 12:00 10/13/16 14:00 10/13/16 14:00 10/13/16 14:00 10/13/16 14:00 Intake and Output: 10/13/16 10/13/16 06:59 18:59 Intake Total 825 790 Output Total 180 130 Balance 645 660 - Medications Medications: Current Medications Acetaminophen (Tylenol 325mg Tab) 650 mg PO Q6 PRN PRN Reason: Fever >100.4 F Fentanyl Citrate 2,500 mcg/ (Dextrose) 250 mls @ 0 mls/hr IV .Q0M RUTHY; Per Protocol PRN Reason: Protocol Last Admin: 10/13/16 12:59 Dose: 2.5 mcg/kg/hr, 21.54 mls/hr Metronidazole (Flagyl 500mg/100ml Ns) 100 mls @ 100 mls/hr IVPB Q8 RUTHY Last Admin: 10/13/16 08:59 Dose: 100 mls/hr Pantoprazole Sodium 40 mg/ (Sodium Chloride) 100 mls @ 20 mls/hr IVPB Q5H RUTHY PRN Reason: 8 MG/HR Last Admin: 10/13/16 14:24 Dose: 20 mls/hr Meropenem 500 mg/ Sodium (Chloride) 100 mls @ 100 mls/hr IVPB Q12 RUTHY Vancomycin HCl 750 mg/ Sodium (Chloride) 250 mls @ 166.667 mls/hr [facility] Morphine Sulfate (Morphine) 2 mg IVP Q6 PRN PRN Reason: Pain, moderate (4-7) Last Admin: 10/10/16 12:36 Dose: 2 mg Ondansetron HCl (Zofran Inj) 4 mg IVP Q6 PRN PRN Reason: Nausea/Vomiting - Labs Labs: 10/13/16 05:30 10/13/16 05:30 PT 42.2 Seconds (9.8-13.1) H* D 10/13/16 05:30 INR 3.6 (0.9-1.2) H D 10/13/16 05:30 APTT 89.2 Seconds (25.6-37.1) H D 10/13/16 05:30 - Constitutional Appears: Non-toxic, Other (intubated, seen and examined on dialysis ) Assessment and Plan - Assessment and Plan (Free Text) Plan: [id number] resp failure/HTN/intestinal gangrene seen on hd today, UF as tolerated lytes reviewed anemia: transfuse prn per ICU team bp: continue current meds abx per icu team
[2016-10-13 15:51] LABS: SQUAMOUS EPITHIAL < 1 /hpf (0-5); URINE BACTERIA RARE (<OCC); URINE BILIRUBIN NEGATIVE (NEGATIVE); URINE BLOOD LARGE (NEGATIVE); URINE CLARITY CLOUDY (Clear); URINE COLOR AMBER (YELLOW); URINE GLUCOSE (UA) NEG (Normal); URINE LEUKOCYTE ESTERASE TRACE Leu/uL (Negative); URINE NITRATE NEGATIVE (NEGATIVE); URINE PROTEIN 100 mg/dL (NEGATIVE); URINE UROBILINOGEN 0.2-1.0 mg/dL (0.2-1.0)
[2016-10-13] MEDS: Meropenem 500 MG in Sodium Chloride 0.9% 100 ML IVPB SCH (21:38)
[2016-10-14] MEDS: Pantoprazole 40 MG in Sodium Chloride 0.9% 100 ML IVPB SCH ×4 (00:50→22:45)
[2016-10-14] MEDS: metroNIDAZOLE 500mg/100ml NS 100 ML IVPB SCH ×3 (00:52→16:00)
[2016-10-14 05:27] LABS: ABG ALLEN TEST YES; ARTERIAL BLOOD GAS HCO3 27.3 mmol/L (21-28); ARTERIAL BLOOD GAS HEMOGLOBIN 7.1 g/dL (11.7-17.4); ARTERIAL BLOOD GAS O2 CONTENT 9.9 ML/dL (15-23); ARTERIAL BLOOD GAS O2 SAT 99.1 % (95-98); ARTERIAL BLOOD GAS PCO2 44 mm/Hg (35-45); ARTERIAL BLOOD GAS PH 7.41 (7.35-7.45); ARTERIAL BLOOD GAS PO2 118 mm/Hg (80-100); ARTERIAL BLOOD GAS TCO2 29.3 mmol/L (22-28)
--- NOTE | 2016-10-14 07:33 | CP.PCM.PN ---
Subjective - Date & Time of Evaluation Date of Evaluation: 10/14/16 Time of Evaluation: 07:30 - Subjective Subjective: Patient seen and examined bedside. Critically ill, intubated on MV PRVC AC mode 18/550/5/45 % FIO2 with ABG 44/118/27/7.4. unable to tolerate CPAp yesterday On fentanyl but awake alert , following simple commands , denies any pain No acute issues overnight Taylor in place with 40 ml output last 24 hours Had HD yesterday with 2000 ml fluid removal. With anasarca Right groin HD cathete in place NGT in plac with bloody output 150 ml last 12 hours BP elevated 181/95 tachycardic HR 101 Tmax 99.8 WBC 17 K Hgb 8.7 plt 47 K BUN/Cr 101/7.6 ( from yesterday ) Objective - Vital Signs/Intake and Output Vital Signs (last 24 hours): Temp Pulse Resp BP Pulse Ox 99.8 F H 101 H 18 181/95 H 98 10/14/16 06:00 10/14/16 06:00 10/14/16 06:00 10/14/16 06:00 10/14/16 05:00 Intake and Output: 10/14/16 10/14/16 06:59 18:59 Intake Total 740 Output Total 10 Balance 730 - Medications Medications: Current Medications Acetaminophen (Tylenol 325mg Tab) 650 mg PO Q6 PRN PRN Reason: Fever >100.4 F Fentanyl Citrate 2,500 mcg/ (Dextrose) 250 mls @ 0 mls/hr IV .Q0M RUTHY; Per Protocol PRN Reason: Protocol Last Admin: 10/13/16 12:59 Dose: 2.5 mcg/kg/hr, 21.54 mls/hr Metronidazole (Flagyl 500mg/100ml Ns) 100 mls @ 100 mls/hr IVPB Q8 RUTHY Last Admin: 10/14/16 00:52 Dose: 100 mls/hr Pantoprazole Sodium 40 mg/ (Sodium Chloride) 100 mls @ 20 mls/hr IVPB Q5H RUTHY PRN Reason: 8 MG/HR Last Admin: 10/14/16 00:50 Dose: 20 mls/hr Meropenem 500 mg/ Sodium (Chloride) 100 mls @ 100 mls/hr IVPB Q12 RUTHY Last Admin: 10/13/16 21:38 Dose: 100 mls/hr Vancomycin HCl 750 mg/ Sodium (Chloride) 250 mls @ 166.667 mls/hr IVPB QOTHERDAY RUTHY Morphine Sulfate (Morphine) 2 mg IVP Q6 PRN PRN Reason: Pain, moderate (4-7) Last Admin: 10/10/16 12:36 Dose: 2 mg Ondansetron HCl (Zofran Inj) 4 mg IVP Q6 PRN PRN Reason: Nausea/Vomiting - Labs Labs: 10/13/16 05:30 10/13/16 05:30 PT 42.2 Seconds (9.8-13.1) H* D 10/13/16 05:30 INR 3.6 (0.9-1.2) H D 10/13/16 05:30 APTT 89.2 Seconds (25.6-37.1) H D 10/13/16 05:30 - Constitutional Appears: Toxic, Other (on MV , awake and alert ) - Head Exam Head Exam: NORMOCEPHALIC - Eye Exam Eye Exam: EOMI, PERRL Pupil Exam: NORMAL ACCOMODATION - ENT Exam ENT Exam: Mucous Membranes Dry - Neck Exam Neck Exam: Normal Inspection - Respiratory Exam Respiratory Exam: Decreased Breath Sounds (bibasilar ), Rales, Rhonchi. absent : Wheezes - Cardiovascular Exam Cardiovascular Exam: Tachycardia, REGULAR RHYTHM. absent: JVD - GI/Abdominal Exam GI & Abdominal Exam: Distended, Hypoactive Bowel Sounds. absent: Guarding, Tenderness Additional comments: midline surgical incision with robby in place , clean and intact - Rectal Exam Rectal Exam: Deferred - Extremities Exam Extremities Exam: Pedal Edema (2+) Additional comments: anasarca , LUE with weeping blisters above antecubital area - Neurological Exam Neurological Exam: Alert, Awake Additional comments: following simple commands - Psychiatric Exam Psychiatric exam: Flat Affect - Skin Skin Exam: Pallor, Warm Assessment and Plan - Assessment and Plan (Free Text) Assessment: 51 y/o male with PMH CABG 2 weeks ago, back pain, HTN, presented with severe sharp abdominal pain associated with nausea and emesis for two days. In ER, pt found to have intractable abdominal pain, disproportionate to exam. CT showed evidence of mesenteric ischemia/infarction. Seen by surgery in ER and taken to OR for emergent exploratory laparatomy by Dr. Sanchez that showed ischemic small bowel and right colon. No surgical intervention could be done, the patient was closed up and transferred to ICU for medical care. Currently intubated on MV , on Fentanyl drip for sedation and pain control ,off pressors. More wake today , following simple commands. Failed weaning protocol yesterday Poor Prognosis. Family in [place] notified of pt's condition 1.Septic shock secondary to ischemic bowel, now with Multi-organ Failure Intubated on MV , sedated with fentanyl drip off levophed drip cont Fentanyl drip Critically ill with very poor prognosis ID consulted Changed antibiotics to meropenem and Vancomycin Continue Flagyl 2. Ischemic/Necrotic bowel s/p exploratory laparatomy by general surgery showing necrotic small bowel and right colon No surgical intervention possible at this time Supportive care Heparin was stopped due to thrombocytopenia and possibility of HIT. 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 CAD s/p CABG 2 weeks ago Cardio consult : Dr Putnam 6.Paroxysmal A Fib with RVR episode resolved, now back in SR received Amiodarone, off drip Cardio consulted 7. Thrombocytopenia d/c Heparin Follow up HIT antibody Bloody secretions noted from NGT and ETT. Held Argatroban 8. Acute blood loss anemia/ GI bleed With 150 ml bloody output from NGT last 12 hours Hgb 8.7 on protonix drip monitor for now 9. Coagulopathy INR 3.6 supportive care 10. Hypertension will start labetalol via NGT 11.DVT prophylaxis SCD
[2016-10-14 08:21] LABS: BASO # 0.1 K/uL (0.0-0.2); BASO % 0.5 % (0.0-2.0); EOS # 0.3 K/uL (0.0-0.7); EOS % 1.2 % (0.0-4.0); HEMOGLOBIN 9.5 g/dL (12.0-18.0); LYMPH # 2.5 K/uL (1.0-4.3); LYMPH % 11.4 % (20.0-40.0); MEAN CELL VOLUME 86.5 fl (80.0-94.0); MEAN CORPUSCULAR HEMOGLOBIN 27.2 pg (27.0-31.0); MEAN CORPUSCULAR HGB CONC 31.4 g/dL (33.0-37.0); MEAN PLATELET VOLUME 11.4 fl (7.2-11.7); MONO # 1.4 K/uL (0.0-0.8); MONO % 6.3 % (0.0-10.0); NEUT # 17.6 K/uL (1.8-7.0); NEUT % 80.6 % (50.0-75.0); NRBC % 4.3 % (0.0-0.0); RBC 3.51 Mil/uL (4.40-5.90); RED CELL DISTRIBUTION WIDTH 16.7 % (11.5-14.5); WHITE BLOOD COUNT 21.8 K/uL (4.8-10.8)
--- NOTE | 2016-10-14 08:36 | CP.CCUPN ---
CCU Subjective - Physician Review Events Since Last Encounter (Free Text): Day#9 on MV support since ExLAp, he is awake and following simple commands, no new discomfort noted beyond severe abdominal pain, on Fenatnyl drip, he remains on Protonix drip, He did tolerate over 2 hours on low level CPAP PS mode 2 days ago. 24H I/O is +1. 5 L. Had HD 2 L/ removed yesterday. ROS: as above, otherwise unobtainable and unable to complete review of 10+ systems due to sedation. PMSFH: all nursing and physician notes reviewed, no other pertinent history relevant to current problems. CXR: Pending for today. 10/13 film and results reviewed. Major problems: 1. POD#9 ExLap for diffuse Ischemic Bowel disease 2. Multi-Organ Failure Syndrome affecting Pulm, Hepatic, Renal systems. 3. Acute hypoxemic Resp failure 2 bilat effusions 4. Acute Renal Failure 2 ATN 5. Ischemic / Shock Liver 6. s/p CABG - 2 weeks [employer]: 1. 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 Unclear if current ischemic bowel event 2 to recent CABG and / or cocaine effect on atherosclerotic cardiovascular disease from tobacco use. 2. Accelerated HTN, will start Labelatol. 3. No nutritional support since operative intervention, discuss with Surg team , regarding other possible nutritional support venues. 4. He remains auto-anticoagulated after initial anticoagulation from Argatroban. Hgb levels have been acceptable, has not required any PRBCs to date , but may need blood today if HGB level of 7.1 as noted on ABG is confirmed via CBC. 5. If status continue to improve, will progress MV weans as tolerated towards Extubation. 6. Continue empiric abx coverage, PCT levels noted to have declined. 7. Discussed present status and events on 10/12 via [employer], with patients eldest sister in [place], who is now aware and understands his prognosis. No Advance Directives decisions made by her, but deferred to patient (as he progresses towards possible extubation) to make further decisions on care and aggressiveness of any further interventions. CCU Objective - Vital Signs / Intake & Output Vital Signs (Last 4 hours): Vital Signs Temp Pulse Resp BP Pulse Ox 10/14/16 08:00 99.5 F 85 18 159/77 H 100 10/14/16 07:00 105 H 18 202/107 H 98 10/14/16 06:00 99.8 F H 101 H 18 181/95 H 10/14/16 05:00 94 H 20 175/82 H 98 Intake and Output (Last 8hrs): Intake & Output 10/13/16 10/14/16 10/14/16 22:59 06:59 14:59 Intake Total 460 460 20 Output Total 10 5 Balance 460 450 15 Intake: IV 260 360 20 Intake, Piggyback 200 100 Output: Urine 10 5 Urethral (Taylor) 10 5 - Physical Exam Head: Positive for: Atraumatic, Normocephalic Pupils: Positive for: PERRL Conjunctiva: Positive for: Normal. Negative for: Icteric Ears: Positive for: Normal Mouth: Positive for: Moist Mucous Membranes, Other (Dry Blood noticed in oral region. Blood noted via NG tube suction) Nose (External): Positive for: Atraumatic Nose (Internal): Positive for: Normal Inspection Neck: Positive for: Trachea Midline. Negative for: JVD Respiratory/Chest: Positive for: Decreased Breath Sounds, Rhonchi Cardiovascular: Positive for: Regular Rate and Rhythm, Tachycardic. Negative for: Murmurs, Rub Abdomen: Positive for: Tenderness (Generalized tenderness to palpate. Jumana seen intact on mid epigastrium, no pus or discharge noted), Distention, Guarding , Other (Abd dressing intact and dry, no BS heard. ) Genitourinary Male: Positive for: Testicle Swelling Upper Extremity: Positive for: Normal Inspection Lower Extremity: Positive for: Cyanosis, Other (B/l lower extremites are warm) Neurological: Positive for: Other (on ventilator, sedated, no response to verbal stimuli. Pt is responsive to painful stimuli) Skin: Positive for: Warm, Other (+ anasarca). Negative for: Rashes Psychiatric: Positive for: Alert, Other (sedated) - Medications Active Medications: Active Medications Generic Name Dose Route Start Last Admin Trade Name Freq PRN Reason Stop Dose Admin Acetaminophen 650 mg 10/06/16 15:27 Tylenol 325mg Tab PO Q6 PRN Fever >100.4 F Fentanyl Citrate 2,500 mcg/ 250 mls @ 0 mls/hr 10/08/16 11:15 10/13/16 12:59 Dextrose IV 2.5 mcg/kg/hr .Q0M RUTHY 21.54 mls/hr Protocol Administration Per Protocol Metronidazole 100 mls @ 100 mls/hr 10/08/16 11:15 10/14/16 00:52 Flagyl 500mg/100ml Ns IVPB 100 mls/hr Q8 RUTYH Administration Pantoprazole Sodium 40 mg/ 100 mls @ 20 mls/hr 10/12/16 10:15 10/14/16 00:50 Sodium Chloride IVPB 20 mls/hr Q5H RUTHY Administration 8 MG/HR Meropenem 500 mg/ Sodium 100 mls @ 100 mls/hr 10/13/16 21:00 10/13/16 21:38 Chloride IVPB 100 mls/hr Q12 RUTHY Administration Vancomycin HCl 750 mg/ Sodium 250 mls @ 166.667 mls/hr 10/15/16 09:00 Chloride IVPB QOTHERDAY RUTHY Labetalol HCl 100 mg 10/14/16 09:00 Trandate PO BID RUTHY Morphine Sulfate 2 mg 10/08/16 09:00 10/10/16 12:36 Morphine IVP 2 mg Q6 PRN Administration Pain, moderate (4-7) Ondansetron HCl 4 mg 10/06/16 15:27 Zofran Inj IVP Q6 PRN Nausea/Vomiting - Patient Studies Lab Studies: Lab Studies 10/14/16 10/13/16 Range/Units 05:17 15:35 pCO2 44 (35-45) mm/Hg pO2 118 H (80-100) mm/Hg HCO3 27.3 (21-28) mmol/L ABG pH 7.41 (7.35-7.45) ABG Total CO2 29.3 H (22-28) mmol/L ABG O2 Saturation 99.1 H (95-98) % ABG O2 Content 9.9 L (15-23) ML/dL ABG Base Excess 3.0 (-2.0-3.0) mmol/L ABG Hemoglobin 7.1 L (11.7-17.4) g/dL ABG Carboxyhemoglobin 0.9 (0.5-1.5) % POC ABG HHb (Measured) 0.9 (0.0-5.0) % ABG Methemoglobin 2.0 (0.0-3.0) % ABG O2 Capacity 10.0 L (16-24) mL/dL Quirino Test Yes A-a O2 Difference 112.0 mm/Hg Hgb O2 Saturation 96.2 (95.0-98.0) % Vent Mode A/c Mechanical Rate 18 FiO2 40.0 % Tidal Volume 550 PEEP 5 Urine Color Jennifer (YELLOW) Urine Clarity Cloudy (Clear) Urine pH 5.0 (5.0-8.0) Ur Specific [place] 1.020 (1.003-1.030) Urine Protein 100 (NEGATIVE) mg/dL Urine Glucose (UA) Neg (Normal) mg/dL Urine Ketones Trace (NEGATIVE) mg/dL Urine Blood Large (NEGATIVE) Urine Nitrate Negative (NEGATIVE) Urine Bilirubin Negative (NEGATIVE) Urine Urobilinogen 0.2-1.0 (0.2-1.0) mg/dL Ur Leukocyte Esterase Trace (Negative) Frantz/uL Urine RBC (Auto) 57 H (0-3) /hpf Urine Microscopic WBC 16 H (0-5) /hpf Ur Squamous Epith Cells < 1 (0-5) /hpf Urine Bacteria Rare (<OCC) Urine Yeast (Budding) Mod H (NEGATIVE) /hpf Laboratory Results - last 24 hr 10/13/16 10/14/16 15:35 05:17 pCO2 44 pO2 118 H HCO3 27.3 ABG pH 7.41 ABG Total CO2 29.3 H ABG O2 Saturation 99.1 H ABG O2 Content 9.9 L ABG Base Excess 3.0 ABG Hemoglobin 7.1 L ABG Carboxyhemoglobin 0.9 POC ABG HHb (Measured) 0.9 ABG Methemoglobin 2.0 ABG O2 Capacity 10.0 L Quirino Test Yes A-a O2 Difference 112.0 Hgb O2 Saturation 96.2 Vent Mode A/c Mechanical Rate 18 FiO2 40.0 Tidal Volume 550 PEEP 5 Urine Color Jennifer Urine Clarity Cloudy Urine pH 5.0 Ur Specific [place] 1.020 Urine Protein 100 Urine Glucose (UA) Neg Urine Ketones Trace Urine Blood Large Urine Nitrate Negative Urine Bilirubin Negative Urine Urobilinogen 0.2-1.0 Ur Leukocyte Esterase Trace Urine RBC (Auto) 57 H Urine Microscopic WBC 16 H Ur Squamous Epith Cells < 1 Urine Bacteria Rare Urine Yeast (Budding) Mod H Review of Systems - Review of Systems Review of Systems: As Above comment. Critical Care Progress Note - Ventilator Checklist Head of Bed 30 Degrees: Yes Daily Sedation Vacation: Yes Daily Assessment of Readiness to Wean: Yes Daily Spontaneous Breathing Trial: Yes PUD Prophalyxis: Yes DVT Prophylaxis: Yes Oral Care with Chlorhexidine Gluconate {CHG}: Yes - Vent Settings MODE:: ASSIST CONTROL TIDAL VOLUME:: 550 RESP RATE:: 18 FIO2:: 45 PEEP:: 5 - Extremities/Vascular Does the Patient have a Central Venous Catheter?: Yes Insertion Site: Femoral Vein Does the Patient need a Central Venous Catheter?: Yes Does the Patient have a Taylor Catheter?: Yes Does the Patient need a Taylor Catheter?: Yes Catheter Insertion Criteria: Need for accurate measurement of output in critically ill patient - Restraints Justification for Restraints: High risk for self extubation - Prophylaxis GI Prophylaxis GI: PPI - Prophylaxis DVT Prophylaxis DVT: Not Indicated (auto-anticoagulated)
[2016-10-14 08:45] LABS: ALB/GLOB RATIO 0.7 (1.0-2.1); ALBUMIN 2.8 g/dL (3.5-5.0); CALCIUM 8.4 mg/dL (8.4-10.2)
[2016-10-14] MEDS: Meropenem 500 MG in Sodium Chloride 0.9% 100 ML IVPB SCH ×2 (08:53→21:32)
[2016-10-14] MEDS: Labetalol 5 mg/ml Inj 20ML IVP PRN ×3 (09:14→23:35)
[2016-10-14] MEDS ORDERED: EnalaprilAT 1.25 mg/ml Inj IV SCH (10:00)
--- NOTE | 2016-10-14 10:48 | CP.PCM.PN ---
Subjective - Date & Time of Evaluation Date of Evaluation: 10/14/16 Time of Evaluation: 10:47 - Subjective Subjective: ON CPAP TODAY NO NEW CLINICAL FINDINS 02 SAT ADEQUATE WILL CONTINUE ATTEMPTS TO EXTUBATE Objective - Vital Signs/Intake and Output Vital Signs (last 24 hours): Temp Pulse Resp BP Pulse Ox 99.5 F 74 12 141/72 100 10/14/16 08:00 10/14/16 10:00 10/14/16 10:00 10/14/16 10:00 10/14/16 10:00 Intake and Output: 10/14/16 10/14/16 06:59 18:59 Intake Total 740 260 Output Total 10 5 Balance 730 255 - Medications Medications: Current Medications Acetaminophen (Tylenol 325mg Tab) 650 mg PO Q6 PRN PRN Reason: Fever >100.4 F Fentanyl Citrate 2,500 mcg/ (Dextrose) 250 mls @ 0 mls/hr IV .Q0M RUTHY; Per Protocol PRN Reason: Protocol Last Titration: 10/14/16 10:18 Dose: 0 mcg/kg/hr, 0 mls/hr Metronidazole (Flagyl 500mg/100ml Ns) 100 mls @ 100 mls/hr IVPB Q8 RUTHY Last Admin: 10/14/16 08:52 Dose: 100 mls/hr Pantoprazole Sodium 40 mg/ (Sodium Chloride) 100 mls @ 20 mls/hr IVPB Q5H RUTHY PRN Reason: 8 MG/HR Last Admin: 10/14/16 00:50 Dose: 20 mls/hr Meropenem 500 mg/ Sodium (Chloride) 100 mls @ 100 mls/hr IVPB Q12 RUTHY Last Admin: 10/14/16 08:53 Dose: 100 mls/hr Vancomycin HCl 750 mg/ Sodium (Chloride) 250 mls @ 166.667 mls/hr IVPB QOTHERDAY [facility] Labetalol HCl (Trandate) 100 mg PO BID [facility] Last Admin: 10/14/16 09:05 Dose: Not Given Labetalol HCl (Trandate) 20 mg IVP Q4 PRN PRN Reason: Systolic Blood Pressure Last Admin: 10/14/16 09:14 Dose: 20 mg Morphine Sulfate (Morphine) 2 mg IVP Q6 PRN PRN Reason: Pain, moderate (4-7) Last Admin: 10/10/16 12:36 Dose: 2 mg Ondansetron HCl (Zofran Inj) 4 mg IVP Q6 PRN PRN Reason: Nausea/Vomiting - Labs Labs: 10/14/16 05:30 10/14/16 05:30 PT 42.2 Seconds (9.8-13.1) H* D 10/13/16 05:30 INR 3.6 (0.9-1.2) H D 10/13/16 05:30 APTT 89.2 Seconds (25.6-37.1) H D 10/13/16 05:30
[2016-10-14 11:01] LABS: ABG ALLEN TEST YES; ARTERIAL BLOOD GAS HCO3 24.6 mmol/L (21-28); ARTERIAL BLOOD GAS HEMOGLOBIN 9.9 g/dL (11.7-17.4); ARTERIAL BLOOD GAS O2 CAPACITY 13.9 mL/dL (16-24); ARTERIAL BLOOD GAS O2 CONTENT 13.9 ML/dL (15-23); ARTERIAL BLOOD GAS PCO2 46 mm/Hg (35-45); ARTERIAL BLOOD GAS PH 7.35 (7.35-7.45); ARTERIAL BLOOD GAS PO2 160 mm/Hg (80-100); ARTERIAL BLOOD GAS TCO2 26.8 mmol/L (22-28)
--- NOTE | 2016-10-14 11:25 | CP.PCM.PN ---
Subjective - Date & Time of Evaluation Date of Evaluation: 10/14/16 Time of Evaluation: 11:23 - Subjective Subjective: Surgery: Dr. Anderson Pt seen and examined. No acute events overnight. Pt remains on vent. Objective - Vital Signs/Intake and Output Vital Signs (last 24 hours): Temp Pulse Resp BP Pulse Ox 99.5 F 74 12 141/72 100 10/14/16 08:00 10/14/16 10:00 10/14/16 10:00 10/14/16 10:00 10/14/16 10:00 Intake and Output: 10/14/16 10/14/16 06:59 18:59 Intake Total 740 260 Output Total 10 5 Balance 730 255 - Medications Medications: Current Medications Acetaminophen (Tylenol 325mg Tab) 650 mg PO Q6 PRN PRN Reason: Fever >100.4 F Fentanyl Citrate 2,500 mcg/ (Dextrose) 250 mls @ 0 mls/hr IV .Q0M RUTHY; Per Protocol PRN Reason: Protocol Last Titration: 10/14/16 10:18 Dose: 0 mcg/kg/hr, 0 mls/hr Metronidazole (Flagyl 500mg/100ml Ns) 100 mls @ 100 mls/hr IVPB Q8 RUTHY Last Admin: 10/14/16 08:52 Dose: 100 mls/hr Pantoprazole Sodium 40 mg/ (Sodium Chloride) 100 mls @ 20 mls/hr IVPB Q5H RUTHY PRN Reason: 8 MG/HR Last Admin: 10/14/16 00:50 Dose: 20 mls/hr Meropenem 500 mg/ Sodium (Chloride) 100 mls @ 100 mls/hr IVPB Q12 RUTHY Last Admin: 10/14/16 08:53 Dose: 100 mls/hr Vancomycin HCl 750 mg/ Sodium (Chloride) 250 mls @ 166.667 mls/hr IVPB QOTHERDAY [facility] Labetalol HCl (Trandate) 100 mg PO BID RUTHY Last Admin: 10/14/16 09:05 Dose: Not Given Labetalol HCl (Trandate) 20 mg IVP Q4 PRN PRN Reason: Systolic Blood Pressure Last Admin: 10/14/16 09:14 Dose: 20 mg Morphine Sulfate (Morphine) 2 mg IVP Q6 PRN PRN Reason: Pain, moderate (4-7) Last Admin: 10/10/16 12:36 Dose: 2 mg Ondansetron HCl (Zofran Inj) 4 mg IVP Q6 PRN PRN Reason: Nausea/Vomiting - Labs Labs: 10/14/16 05:30 10/14/16 05:30 PT 42.2 Seconds (9.8-13.1) H* D 10/13/16 05:30 INR 3.6 (0.9-1.2) H D 10/13/16 05:30 APTT 89.2 Seconds (25.6-37.1) H D 10/13/16 05:30 - Constitutional Appears: Toxic, Chronically Ill - Head Exam Head Exam: ATRAUMATIC, NORMOCEPHALIC - Eye Exam Eye Exam: EOMI - Respiratory Exam Additional comments: intubated on vent - GI/Abdominal Exam GI & Abdominal Exam: Distended, Firm, Tenderness. absent: Guarding, Rigid, Rebound Additional comments: incisions C/D/I - Extremities Exam Extremities Exam: Pedal Edema. absent: Calf Tenderness - Neurological Exam Neurological Exam: Alert, Awake, Oriented x3 Assessment and Plan - Assessment and Plan (Free Text) Assessment: 51M w/Mesenteric Ischemia. S/p Ex lap with examination of entire bowel 7/8. POD# 8 -No further surgical intervention at this time -Recommend pallative care -Poor prognosis -Will follow -d/w attending Sandip PGY3
--- NOTE | 2016-10-14 12:05 | RAD ---
HISTORY: Intubated COMPARISON: Chest x-ray performed 10/13/16 TECHNIQUE: Chest, one view. FINDINGS: Endotracheal tube. Nasogastric tube. Multiple external wires and leads obscure evaluation of the underlying parenchyma. LUNGS: Mild pulmonary venous congestion. Tiny probable right pleural effusion. No definite pneumothorax. Please note that chest x-ray has limited sensitivity for the detection of pulmonary masses. CARDIOVASCULAR: Median sternotomy wires. Mild cardiomegaly. OSSEOUS STRUCTURES: No acute osseous abnormality is detected. VISUALIZED UPPER ABDOMEN: Unremarkable. OTHER FINDINGS: None. IMPRESSION: Mild pulmonary venous congestion. Tiny probable right pleural effusion. Mild cardiomegaly. Endotracheal tube. Nasogastric tube.
--- NOTE | 2016-10-14 13:42 | CP.PCM.PN ---
Subjective - Date & Time of Evaluation Date of Evaluation: 10/14/16 Time of Evaluation: 11:00 - Subjective Subjective: EXTUBATION NOTE Objective - Vital Signs/Intake and Output Vital Signs (last 24 hours): Temp Pulse Resp BP Pulse Ox 99.1 F 90 18 185/106 H 98 10/14/16 12:00 10/14/16 13:01 10/14/16 12:00 10/14/16 13:01 10/14/16 12:00 Intake and Output: 10/14/16 10/14/16 06:59 18:59 Intake Total 740 300 Output Total 10 5 Balance 730 295 - Medications Medications: Current Medications Acetaminophen (Tylenol 325mg Tab) 650 mg PO Q6 PRN PRN Reason: Fever >100.4 F Fentanyl Citrate 2,500 mcg/ (Dextrose) 250 mls @ 0 mls/hr IV .Q0M RUTHY; Per Protocol PRN Reason: Protocol Last Titration: 10/14/16 10:18 Dose: 0 mcg/kg/hr, 0 mls/hr Metronidazole (Flagyl 500mg/100ml Ns) 100 mls @ 100 mls/hr IVPB Q8 RUTHY Last Admin: 10/14/16 08:52 Dose: 100 mls/hr Pantoprazole Sodium 40 mg/ (Sodium Chloride) 100 mls @ 20 mls/hr IVPB Q5H RUTHY PRN Reason: 8 MG/HR Last Admin: 10/14/16 12:06 Dose: 20 mls/hr Meropenem 500 mg/ Sodium (Chloride) 100 mls @ 100 mls/hr IVPB Q12 RUTHY Last Admin: 10/14/16 08:53 Dose: 100 mls/hr Vancomycin HCl 750 mg/ Sodium (Chloride) 250 mls @ 166.667 mls/hr IVPB QOTHERDAY [facility] Labetalol HCl (Trandate) 100 mg PO BID [facility] Last Admin: 10/14/16 09:05 Dose: Not Given Labetalol HCl (Trandate) 20 mg IVP Q4 PRN PRN Reason: Systolic Blood Pressure Last Admin: 10/14/16 13:01 Dose: 20 mg Morphine Sulfate (Morphine) 2 mg IVP Q6 PRN PRN Reason: Pain, moderate (4-7) Last Admin: 10/10/16 12:36 Dose: 2 mg Ondansetron HCl (Zofran Inj) 4 mg IVP Q6 PRN PRN Reason: Nausea/Vomiting - Labs Labs: 10/14/16 05:30 10/14/16 05:30 PT 42.2 Seconds (9.8-13.1) H* D 10/13/16 05:30 INR 3.6 (0.9-1.2) H D 10/13/16 05:30 APTT 89.2 Seconds (25.6-37.1) H D 10/13/16 05:30 Procedures Attestation:: I certify that I have explained the specified Operation(s) or Procedure(s), risks, benefits and reasonable alternatives to the Patient and/or other person responsible. The opportunity was given to ask questions and all questions answered - Extubation Clinical Parameters: Hemodynamically Stable, Intact Cough/Gag Reflex, Spontaneous Respirations, Acceptable Vent Settings (FIO2<50%, PEEP<8, PaO2>75, pH>7.25) Weaning Criteria Met: Yes General Weaning Approaches: Pressure Support Ventilation (PSV) Weaning Patient Condition: Patient has been successfully extubated and assessed Oxygen Therapy: O2 via Venti Mask (50% oxygen) Patient Tolerated Procedure: Well
[2016-10-14] MEDS: Morphine 4 MG/ML VIAL IVP PRN ×3 (15:55→21:53)
[2016-10-15] MEDS: metroNIDAZOLE 500mg/100ml NS 100 ML IVPB SCH ×3 (01:25→17:02)
[2016-10-15] MEDS: Pantoprazole 40 MG in Sodium Chloride 0.9% 100 ML IVPB SCH ×3 (03:45→15:56)
[2016-10-15 05:28] LABS: BASO # 0.1 K/uL (0.0-0.2); BASO % 0.2 % (0.0-2.0); EOS # 0.1 K/uL (0.0-0.7); EOS % 0.3 % (0.0-4.0); HEMOGLOBIN 9.2 g/dL (12.0-18.0); LYMPH # 2.6 K/uL (1.0-4.3); LYMPH % 12.1 % (20.0-40.0); MEAN CELL VOLUME 87.8 fl (80.0-94.0); MEAN CORPUSCULAR HGB CONC 31.9 g/dL (33.0-37.0); MEAN PLATELET VOLUME 11.5 fl (7.2-11.7); MONO # 1.3 K/uL (0.0-0.8); NEUT # 17.6 K/uL (1.8-7.0); NEUT % 81.4 % (50.0-75.0); RBC 3.3 Mil/uL (4.40-5.90); RED CELL DISTRIBUTION WIDTH 16.8 % (11.5-14.5)
[2016-10-15 05:46] LABS: NRBC % 4.3 % (0.0-0.0); WHITE BLOOD COUNT 21.7 K/uL (4.8-10.8)
[2016-10-15 05:47] LABS: ALBUMIN 2.8 g/dL (3.5-5.0)
[2016-10-15 05:55] LABS: ABG ALLEN TEST YES; ARTERIAL BLOOD GAS HEMOGLOBIN 9.6 g/dL (11.7-17.4); ARTERIAL BLOOD GAS O2 CAPACITY 13.2 mL/dL (16-24); ARTERIAL BLOOD GAS O2 CONTENT 13.1 ML/dL (15-23); ARTERIAL BLOOD GAS O2 SAT 99.3 % (95-98); ARTERIAL BLOOD GAS PCO2 39 mm/Hg (35-45); ARTERIAL BLOOD GAS PH 7.39 (7.35-7.45); ARTERIAL BLOOD GAS PO2 96 mm/Hg (80-100); ARTERIAL BLOOD GAS TCO2 24.8 mmol/L (22-28)
[2016-10-15 06:06] LABS: INR 3.2 (0.9-1.2)
[2016-10-15 06:07] LABS: PROTHROMBIN TIME 37.2 Seconds (9.8-13.1)
[2016-10-15 06:20] LABS: ALB/GLOB RATIO 0.7 (1.0-2.1)
[2016-10-15] MEDS: Labetalol 5 mg/ml Inj 20ML IVP PRN ×2 (06:55→17:31)
--- NOTE | 2016-10-15 07:52 | CP.PCM.PN ---
Subjective - Date & Time of Evaluation Date of Evaluation: 10/15/16 Time of Evaluation: 07:30 - Subjective Subjective: Patient seen and examined bedside.s/p extubation yesterday. On Venti mask saturating 98 %, critically ill, drowsy, responding to verbal commands and following simple orders . Moaning all the time . BP elevated 174/88 HR 88 Saturating 98 %, afebrile WBC 21 k hgb 9.2 Plt 130 INR 3.2 lactic acid 2.6 BUN/ Cr 100/7.9 AST/ALT 128/92 With bloody output from NGT 400 ml last [address] with 170 ml output HD catheter rto right groin CTA abdomen : 1. Apparent resolution of pneumatosis intestinalis, central mesenteric venous gas,superior mesenteric venous gas, as well as portal venous gas. Small and large bowel are limited evaluation due to lack of oral contrast administration this patient. Enteric colitis is not completely excluded. Pancolitis is a possibility as discussed above. No free intrarenal gas. Limited abdominal and pelvic ascites. 2. Nodular changes related to the right kidney are stable and remain potentially suspicious for solid nodule. 3. 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 At and below the level of the celiac artery origin, artifacts obscure evaluation of the abdominal aorta. Consider follow-up chest and abdomen CT with oral and intravenous contrast for greater characterization. Objective - Vital Signs/Intake and Output Vital Signs (last 24 hours): Temp Pulse Resp BP Pulse Ox 99.0 F 88 22 174/88 H 97 10/15/16 04:00 10/15/16 06:55 10/15/16 06:00 10/15/16 06:55 10/15/16 06:00 Intake and Output: 10/15/16 10/15/16 06:59 18:59 Intake Total 440 Output Total 250 Balance 190 - Medications Medications: Current Medications Acetaminophen (Tylenol 325mg Tab) 650 mg PO Q6 PRN PRN Reason: Fever >100.4 F Metronidazole (Flagyl 500mg/100ml Ns) 100 mls @ 100 mls/hr IVPB Q8 [facility] Last Admin: 10/15/16 01:25 Dose: 100 mls/hr Pantoprazole Sodium 40 mg/ (Sodium Chloride) 100 mls @ 20 mls/hr IVPB Q5H [facility] PRN Reason: 8 MG/HR Last Admin: 10/15/16 03:45 Dose: 20 mls/hr Meropenem 500 mg/ Sodium (Chloride) 100 mls @ 100 mls/hr IVPB Q12 [facility] Last Admin: 10/14/16 21:32 Dose: 100 mls/hr Vancomycin HCl 750 mg/ Sodium (Chloride) 250 mls @ 166.667 mls/hr IVPB QOTHERDAY [facility] Labetalol HCl (Trandate) 100 mg PO BID [facility] Last Admin: 10/14/16 16:00 Dose: Not Given Labetalol HCl (Trandate) 20 mg IVP Q4 PRN PRN Reason: Systolic Blood Pressure Last Admin: 10/15/16 06:55 Dose: 20 mg Morphine Sulfate (Morphine) 4 mg IVP Q4 PRN PRN Reason: Pain, severe (8-10) Last Admin: 10/14/16 21:53 Dose: 4 mg Ondansetron HCl (Zofran Inj) 4 mg IVP Q6 PRN PRN Reason: Nausea/Vomiting - Labs Labs: 10/15/16 04:35 10/15/16 04:20 PT 37.2 Seconds (9.8-13.1) H D 10/15/16 04:20 INR 3.2 (0.9-1.2) H 10/15/16 04:20 APTT 72.0 Seconds (25.6-37.1) H D 10/15/16 04:20 - Constitutional Appears: Toxic, In Acute Distress (moaning ), Chronically Ill, Other ( responding to name calling , follows simple commands) - Head Exam Head Exam: ATRAUMATIC - Eye Exam Eye Exam: PERRL - ENT Exam ENT Exam: Mucous Membranes Dry Additional comments: NGT in place with bloody output - Neck Exam Neck Exam: Normal Inspection - Respiratory Exam Respiratory Exam: Decreased Breath Sounds (bibasilar ). absent: Rhonchi, Wheezes - Cardiovascular Exam Cardiovascular Exam: REGULAR RHYTHM, +S1, +S2. absent: JVD - GI/Abdominal Exam GI & Abdominal Exam: Distended, Tenderness, Hypoactive Bowel Sounds. absent: Guarding, Rigid - Rectal Exam Rectal Exam: Deferred - Exam Exam: Scrotal Swelling - Extremities Exam Extremities Exam: Normal Capillary Refill, Pedal Edema (1 +) Additional comments: upper extremity edema with LUE weeping lesions - Neurological Exam Additional comments: lethargic, moaning responds to name calling , follows simple commands - Skin Skin Exam: Pallor, Warm Assessment and Plan - Assessment and Plan (Free Text) Assessment: 51 y/o male with PMH Type A aortic aneurysm repair [address] [facility] by Dr. Wheat , back pain, HTN,cocaine abuse history ( as per friends) presented with severe sharp abdominal pain associated with nausea and emesis for two days. In ER, pt found to have intractable abdominal pain, disproportionate to exam. CT showed evidence of mesenteric ischemia/infarction. Seen by surgery in ER and taken to OR for emergent exploratory laparatomy by Dr. Sanchez that showed ischemic small bowel and right colon. No surgical intervention could be done, the patient was closed up and transferred to ICU for medical care. He was intubated for airway support was placed on on Fentanyl drip for sedation and pain control . He was weaned off and extubated yesterday and at present on Venturi mask saturating afebrile, drowsy , off Fentanyl drip , moaning ,following simple commands. Denies pain when asked . CTA abdomen today showed ; 1. Apparent resolution of pneumatosis intestinalis, central mesenteric venous gas,superior mesenteric venous gas, as well as portal venous gas. Small and large bowel are limited evaluation due to lack of oral contrast administration this patient. Enteric colitis is not completely excluded. Pancolitis is a possibility as discussed above. No free intrarenal gas. Limited abdominal and pelvic ascites. 2. Nodular changes related to the right kidney are stable and remain potentially suspicious for solid nodule. 3. 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 At and below the level of the celiac artery origin, artifacts obscure evaluation of the abdominal aorta. Consider follow-up chest and abdomen CT with oral and intravenous contrast for greater characterization. General surgery informed and vascular surgery consulted Poor Prognosis. Family in [place] notified of pt's condition 1.Septic shock secondary to ischemic bowel, now with Multi-organ Failure extubated on Venti mask saturating 98% , afebrile off Fentanyl drip. on MorphinE IV for pain control off levophed drip and with stable BP Critically ill with very poor prognosis Geeral surgery, GI, pulmonary, ID on consult Continue Micafungin Flagyl and Vancomycin after HD . D/c meropenem 2. Recent Type A aortic aneurysm repair at [facility] CTA abd and pelvis showed Thoracoabdominal aortic dissection involving distal thoracic segment and proximal aortic segment. [facility] surggen cinformed vascular surgery consulted Will do CTA chest stat 3. Ischemic/Necrotic bowel Most likely secondary to hypoperfusion due to aortic dissection s/p exploratory laparatomy by general surgery showing necrotic small bowel and right colon No surgical intervention possible at this time Supportive care CTA abd and pelvis today read as pancolitis. Will order Ct abdomen and pelvis with Po contrast Surgery informed and following Heparin was stopped due to thrombocytopenia and possibility of HIT. Argatroban hepatically dosed was started and stopped due to bleeding from NGT and ETT Poor prognosis Will place PICC line and start TPN feeding. Discussed with IR Dr. Deal. Due to coagulopathy patient is high risk for PICC line placement . Will follow up in AM 4.Elevated transaminases likely Shock Liver likely secondary to mesenteric ischemia improving NGT in place with bloody secretions 5. GOPI likely due to decrease perfusion Pt started on Hemodialysis on 10/08 Nephrology consult - Dr Claudia Law HD cath placed to right groin Will hemodyalise today after contrast given 6. CAD s/p CABG 2 weeks ago-- clarified with surgeon patient did not have CABG Cardio consult : Dr Putnam Echo showed normal EF 7.Paroxysmal A Fib with RVR episode resolved, now back in SR received Amiodarone, off drip Cardio consulted 8. Thrombocytopenia-- improving Heparin discontinued Follow up HIT antibody Bloody secretions noted from NGT and ETT. Held Argatroban 9. Acute blood loss anemia/ UGI bleed With bloody output from NGTs Hgb 8.7 on protonix drip monitor for now 10. Coagulopathy INR 3.2 supportive care 11. Hypertension started labetalol IV 11.DVT prophylaxis SCD
--- NOTE | 2016-10-15 08:05 | CP.PCM.PN ---
<Kyle Brunson - Last Filed: 10/15/16 08:00> Subjective - Date & Time of Evaluation Date of Evaluation: 10/15/16 Time of Evaluation: 08:00 - Subjective Subjective: Surgery Progress note. Dr. Sanchez Pt seen and examined at bedside. Friend is at bedside. Moans and groans to verbal and tactile stimuli. NG tube to suction 300cc of dark output. Taylor in place. Objective - Vital Signs/Intake and Output Vital Signs (last 24 hours): Temp Pulse Resp BP Pulse Ox 99.0 F 88 22 174/88 H 97 10/15/16 04:00 10/15/16 06:55 10/15/16 06:00 10/15/16 06:55 10/15/16 06:00 Intake and Output: 10/15/16 10/15/16 06:59 18:59 Intake Total 440 Output Total 250 Balance 190 - Medications Medications: Current Medications Acetaminophen (Tylenol 325mg Tab) 650 mg PO Q6 PRN PRN Reason: Fever >100.4 F Metronidazole (Flagyl 500mg/100ml Ns) 100 mls @ 100 mls/hr IVPB Q8 [facility] Last Admin: 10/15/16 01:25 Dose: 100 mls/hr Pantoprazole Sodium 40 mg/ (Sodium Chloride) 100 mls @ 20 mls/hr IVPB Q5H [facility] PRN Reason: 8 MG/HR Last Admin: 10/15/16 03:45 Dose: 20 mls/hr Meropenem 500 mg/ Sodium (Chloride) 100 mls @ 100 mls/hr IVPB Q12 [facility] Last Admin: 10/14/16 21:32 Dose: 100 mls/hr Vancomycin HCl 750 mg/ Sodium (Chloride) 250 mls @ 166.667 mls/hr IVPB QOTHERDAY [facility] Labetalol HCl (Trandate) 100 mg PO BID [facility] Last Admin: 10/14/16 16:00 Dose: Not Given Labetalol HCl (Trandate) 20 mg IVP Q4 PRN PRN Reason: Systolic Blood Pressure Last Admin: 10/15/16 06:55 Dose: 20 mg Morphine Sulfate (Morphine) 4 mg IVP Q4 PRN PRN Reason: Pain, severe (8-10) Last Admin: 10/14/16 21:53 Dose: 4 mg Ondansetron HCl (Zofran Inj) 4 mg IVP Q6 PRN PRN Reason: Nausea/Vomiting - Labs Labs: 10/15/16 04:35 10/15/16 04:20 PT 37.2 Seconds (9.8-13.1) H D 10/15/16 04:20 INR 3.2 (0.9-1.2) H 10/15/16 04:20 APTT 72.0 Seconds (25.6-37.1) H D 10/15/16 04:20 - Head Exam Head Exam: ATRAUMATIC, NORMAL INSPECTION, NORMOCEPHALIC - ENT Exam ENT Exam: Mucous Membranes Moist Additional comments: NG tube to suction. 300cc dark output - Respiratory Exam Additional comments: venti mask - GI/Abdominal Exam Additional comments: Dressing clean, dry and intact. Patient groans to palpation of abdomen. Midline incision intact with robby, skin margins well approximated. Moderately distended. - Extremities Exam Extremities Exam: Pedal Edema Assessment and Plan - Assessment and Plan (Free Text) Assessment: 51M w/Mesenteric Ischemia. S/p Ex lap with examination of entire bowel 7/8. POD9 -No further surgical intervention at this time -Recommend pallative care -Poor prognosis -Will follow Further recs as per Dr. Daniel Brunson PGY1 surgery pager: [phone] <Calixto Sanchez - Last Filed: 10/15/16 15:58> Subjective - Date & Time of Evaluation Time of Evaluation: 15:40 - Subjective Subjective: Patient was seen and examined at the bedside. Agree with resident's note above. Objective - Vital Signs/Intake and Output Vital Signs (last 24 hours): Temp Pulse Resp BP Pulse Ox 97.6 F 81 30 H 165/75 H 98 10/15/16 12:00 10/15/16 12:00 10/15/16 12:00 10/15/16 12:00 10/15/16 12:00 Intake and Output: 10/15/16 10/15/16 06:59 18:59 Intake Total 440 190 Output Total 250 100 Balance 190 90 - Medications Medications: Current Medications Acetaminophen (Tylenol 325mg Tab) 650 mg PO Q6 PRN PRN Reason: Fever >100.4 F Metronidazole (Flagyl 500mg/100ml Ns) 100 mls @ 100 mls/hr IVPB Q8 [facility] Last Admin: 10/15/16 09:26 Dose: 100 mls/hr Pantoprazole Sodium 40 mg/ (Sodium Chloride) 100 mls @ 20 mls/hr IVPB Q5H [facility] PRN Reason: 8 MG/HR Last Admin: 10/15/16 15:56 Dose: 20 mls/hr Meropenem 500 mg/ Sodium (Chloride) 100 mls @ 100 mls/hr IVPB Q12 [facility] Last Admin: 10/15/16 09:30 Dose: 100 mls/hr Vancomycin HCl 750 mg/ Sodium (Chloride) 250 mls @ 166.667 mls/hr IVPB QOTHERDAY [facility] Micafungin Sodium 100 mg/ (Sodium Chloride) 100 mls @ 100 mls/hr IVPB DAILY [facility] Last Admin: 10/15/16 15:54 Dose: 100 mls/hr Labetalol HCl (Trandate) 100 mg PO BID [facility] Last Admin: 10/15/16 09:41 Dose: Not Given Labetalol HCl (Trandate) 20 mg IVP Q4 PRN PRN Reason: Systolic Blood Pressure Last Admin: 10/15/16 06:55 Dose: 20 mg Morphine Sulfate (Morphine) 4 mg IVP Q4 PRN PRN Reason: Pain, severe (8-10) Last Admin: 10/15/16 09:37 Dose: 4 mg Ondansetron HCl (Zofran Inj) 4 mg IVP Q6 PRN PRN Reason: Nausea/Vomiting - Labs Labs: 10/15/16 04:35 10/15/16 04:20 PT 37.2 Seconds (9.8-13.1) H D 10/15/16 04:20 INR 3.2 (0.9-1.2) H 10/15/16 04:20 APTT 72.0 Seconds (25.6-37.1) H D 10/15/16 04:20 Assessment and Plan - Assessment and Plan (Free Text) Plan: - CT angio today - Will follow
--- NOTE | 2016-10-15 08:25 | CP.CCUPN ---
CCU Subjective - Physician Review Events Since Last Encounter (Free Text): 10/15/16 14:22 The patient was Seen and examined by me at the bedside during ICU round, Medical records reviewed and Management issues were discussed and formulated with the house staff. Patient was successfully extubated Good saturation on Venturi mask Comfortable, No sign of respiratory distress. Patient awake, does not follows basic commands Family working on finding acceptance physician in a transplant center. NGT to suction Scheduled for CT angiogram today NPO Will place PICC line today and start parentral nutrition CCU Objective - Vital Signs / Intake & Output Vital Signs (Last 4 hours): Vital Signs Temp Pulse Resp BP Pulse Ox 10/15/16 08:00 99.3 F 72 23 157/73 H 99 10/15/16 06:55 88 174/88 H 10/15/16 06:00 83 22 177/84 H 97 Intake and Output (Last 8hrs): Intake & Output 10/14/16 10/15/16 10/15/16 22:59 06:59 14:59 Intake Total 260 260 Output Total 305 250 Balance -45 10 Intake: IV 160 160 Intake, Piggyback 100 100 Output: Gastric Amount 300 100 Stomach 300 100 Urine 5 150 Urethral (Taylor) 5 150 - Physical Exam Physical Exam Limitations: Positive for: Altered Mental Status, Clinical Condition Head: Positive for: Atraumatic, Normocephalic Pupils: Positive for: PERRL Conjunctiva: Positive for: Normal. Negative for: Icteric Ears: Positive for: Normal Mouth: Positive for: Moist Mucous Membranes, Other (Dry Blood noticed in oral region. Blood noted via NG tube suction) Nose (External): Positive for: Atraumatic Nose (Internal): Positive for: Normal Inspection Neck: Positive for: Trachea Midline. Negative for: JVD Respiratory/Chest: Positive for: Decreased Breath Sounds, Rhonchi Cardiovascular: Positive for: Regular Rate and Rhythm, Tachycardic. Negative for: Murmurs, Rub Abdomen: Positive for: Tenderness (Generalized tenderness to palpate. Biddle seen intact on mid epigastrium, no pus or discharge noted), Distention, Guarding , Other (Abd dressing intact and dry, no BS heard. ) Genitourinary Male: Positive for: Testicle Swelling Upper Extremity: Positive for: Normal Inspection, Edema Lower Extremity: Positive for: Cyanosis, Swelling, Other (B/l lower extremites are warm). Negative for: CALF TENDERNESS Neurological: Positive for: Other (on ventilator, sedated, no response to verbal stimuli. Pt is responsive to painful stimuli) Skin: Positive for: Warm, Other (+ anasarca). Negative for: Rashes Psychiatric: Positive for: Alert, Other (sedated). Negative for: Oriented x 3 - Medications Active Medications: Active Medications Generic Name Dose Route Start Last Admin Trade Name Freq PRN Reason Stop Dose Admin Acetaminophen 650 mg 10/06/16 15:27 Tylenol 325mg Tab PO Q6 PRN Fever >100.4 F Metronidazole 100 mls @ 100 mls/hr 10/08/16 11:15 10/15/16 01:25 Flagyl 500mg/100ml Ns IVPB 100 mls/hr Q8 RUTHY Administration Pantoprazole Sodium 40 mg/ 100 mls @ 20 mls/hr 10/12/16 10:15 10/15/16 03:45 Sodium Chloride IVPB 20 mls/hr Q5H RUTHY Administration 8 MG/HR Meropenem 500 mg/ Sodium 100 mls @ 100 mls/hr 10/13/16 21:00 10/14/16 21:32 Chloride IVPB 100 mls/hr Q12 RUTHY Administration Vancomycin HCl 750 mg/ Sodium 250 mls @ 166.667 mls/hr 10/15/16 09:00 Chloride IVPB QOTHERDAY RUTHY Labetalol HCl 100 mg 10/14/16 09:00 10/14/16 16:00 Trandate PO Not Given BID RUTHY Labetalol HCl 20 mg 10/14/16 08:38 10/15/16 06:55 Trandate IVP 20 mg Q4 PRN Administration Systolic Blood Pressure Morphine Sulfate 4 mg 10/14/16 16:50 10/14/16 21:53 Morphine IVP 4 mg Q4 PRN Administration Pain, severe (8-10) Ondansetron HCl 4 mg 10/06/16 15:27 Zofran Inj IVP Q6 PRN Nausea/Vomiting - Patient Studies Lab Studies: Microbiology Studies 10/13/16 14:10 Blood Culture - Preliminary Blood-Venous NO GROWTH AFTER 24 HOURS 10/13/16 14:10 Blood Culture - Preliminary Blood-Venous NO GROWTH AFTER 24 HOURS 10/13/16 15:35 Gram Stain - Final Trachasp Sputum Culture - Preliminary No growth. 10/13/16 15:35 Urine Culture - Preliminary Urine,Taylor No growth. Lab Studies 10/15/16 10/15/16 10/15/16 Range/Units 05:50 04:35 04:20 WBC 21.7 H (4.8-10.8) K/uL RBC 3.30 L (4.40-5.90) Mil/uL Hgb 9.2 L (12.0-18.0) g/dL Hct 29.0 L (35.0-51.0) % MCV 87.8 (80.0-94.0) fl MCH 28.0 (27.0-31.0) pg MCHC 31.9 L (33.0-37.0) g/dL RDW 16.8 H (11.5-14.5) % Plt Count 130 (130-400) K/uL MPV 11.5 (7.2-11.7) fl Neut % (Auto) 81.4 H (50.0-75.0) % Lymph % (Auto) 12.1 L (20.0-40.0) % Norman % (Auto) 6.0 (0.0-10.0) % Eos % (Auto) 0.3 (0.0-4.0) % Baso % (Auto) 0.2 (0.0-2.0) % Neut # 17.6 H (1.8-7.0) K/uL Lymph # 2.6 (1.0-4.3) K/uL Norman # 1.3 H (0.0-0.8) K/uL Eos # 0.1 (0.0-0.7) K/uL Baso # 0.1 (0.0-0.2) K/uL PT (9.8-13.1) Seconds INR (0.9-1.2) APTT (25.6-37.1) Seconds pCO2 39 (35-45) mm/Hg pO2 96 (80-100) mm/Hg HCO3 24.0 (21-28) mmol/L ABG pH 7.39 (7.35-7.45) ABG Total CO2 24.8 (22-28) mmol/L ABG O2 Saturation 99.3 H (95-98) % ABG O2 Content 13.1 L (15-23) ML/dL ABG Base Excess -1.2 (-2.0-3.0) mmol/L ABG Hemoglobin 9.6 L (11.7-17.4) g/dL ABG Carboxyhemoglobin 1.7 H (0.5-1.5) % POC ABG HHb (Measured) 0.7 (0.0-5.0) % ABG Methemoglobin 1.9 (0.0-3.0) % ABG O2 Capacity 13.2 L (16-24) mL/dL Quirino Test Yes A-a O2 Difference 212.0 mm/Hg Hgb O2 Saturation 95.7 (95.0-98.0) % Vent Mode 50% vm FiO2 50.0 % PEEP Pressure Support Sodium (132-148) mmol/l Potassium (3.6-5.0) MMOL/L Chloride (98-107) mmol/L Carbon Dioxide (22-30) mmol/L Anion Gap (10-20) BUN (9-20) mg/dl Creatinine (0.8-1.5) mg/dL Est GFR ( Amer) Est GFR (Non-Af Amer) Random Glucose (75-110) mg/dL Lactic Acid 2.6 H (0.7-2.1) MMOL/L Calcium (8.4-10.2) mg/dL Total Bilirubin (0.2-1.3) mg/dl AST (17-59) U/L ALT (21-72) U/L Alkaline Phosphatase (38-126) U/L Total Protein (6.3-8.2) G/DL Albumin (3.5-5.0) g/dL Globulin (2.2-3.9) gm/dL Albumin/Globulin Ratio (1.0-2.1) Heparin-induced Plt Ab (Negative) Blood Type Antibody Screen BBK History Checked 10/15/16 10/15/16 10/14/16 Range/Units 04:20 04:20 11:01 WBC (4.8-10.8) K/uL RBC (4.40-5.90) Mil/uL Hgb (12.0-18.0) g/dL Hct (35.0-51.0) % MCV (80.0-94.0) fl MCH (27.0-31.0) pg MCHC (33.0-37.0) g/dL RDW (11.5-14.5) % Plt Count (130-400) K/uL MPV (7.2-11.7) fl Neut % (Auto) (50.0-75.0) % Lymph % (Auto) (20.0-40.0) % Norman % (Auto) (0.0-10.0) % Eos % (Auto) (0.0-4.0) % Baso % (Auto) (0.0-2.0) % Neut # (1.8-7.0) K/uL Lymph # (1.0-4.3) K/uL Norman # (0.0-0.8) K/uL Eos # (0.0-0.7) K/uL Baso # (0.0-0.2) K/uL PT 37.2 H D (9.8-13.1) Seconds INR 3.2 H (0.9-1.2) APTT 72.0 H D (25.6-37.1) Seconds pCO2 46 H (35-45) mm/Hg pO2 160 H (80-100) mm/Hg HCO3 24.6 (21-28) mmol/L ABG pH 7.35 (7.35-7.45) ABG Total CO2 26.8 (22-28) mmol/L ABG O2 Saturation 100.0 H (95-98) % ABG O2 Content 13.9 L (15-23) ML/dL ABG Base Excess -0.4 (-2.0-3.0) mmol/L ABG Hemoglobin 9.9 L (11.7-17.4) g/dL ABG Carboxyhemoglobin 1.6 H (0.5-1.5) % POC ABG HHb (Measured) 0.0 (0.0-5.0) % ABG Methemoglobin 1.4 (0.0-3.0) % ABG O2 Capacity 13.9 L (16-24) mL/dL Quirino Test Yes A-a O2 Difference 103.0 mm/Hg Hgb O2 Saturation 97.0 (95.0-98.0) % Vent Mode Cpap FiO2 45.0 % PEEP 5 Pressure Support 10 Sodium 141 (132-148) mmol/l Potassium 5.6 H (3.6-5.0) MMOL/L Chloride 102 (98-107) mmol/L Carbon Dioxide 21 L (22-30) mmol/L Anion Gap 24 H (10-20) BUN 100 H* D (9-20) mg/dl Creatinine 7.9 H* D (0.8-1.5) mg/dL Est GFR ( Amer) 9 Est GFR (Non-Af Amer) 7 Random Glucose 125 H (75-110) mg/dL Lactic Acid (0.7-2.1) MMOL/L Calcium 8.0 L (8.4-10.2) mg/dL Total Bilirubin 6.9 H (0.2-1.3) mg/dl AST 128 H D (17-59) U/L ALT 92 H (21-72) U/L Alkaline Phosphatase 127 H (38-126) U/L Total Protein 6.7 (6.3-8.2) G/DL Albumin 2.8 L (3.5-5.0) g/dL Globulin 4.0 H (2.2-3.9) gm/dL Albumin/Globulin Ratio 0.7 L (1.0-2.1) Heparin-induced Plt Ab (Negative) Blood Type Antibody Screen BBK History Checked 10/14/16 10/14/16 10/14/16 Range/Units 10:45 05:30 05:30 WBC 21.8 H (4.8-10.8) K/uL RBC 3.51 L (4.40-5.90) Mil/uL Hgb 9.5 L (12.0-18.0) g/dL Hct 30.3 L (35.0-51.0) % MCV 86.5 (80.0-94.0) fl MCH 27.2 (27.0-31.0) pg MCHC 31.4 L (33.0-37.0) g/dL RDW 16.7 H (11.5-14.5) % Plt Count 82 L D (130-400) K/uL MPV 11.4 (7.2-11.7) fl Neut % (Auto) 80.6 H (50.0-75.0) % Lymph % (Auto) 11.4 L (20.0-40.0) % Norman % (Auto) 6.3 (0.0-10.0) % Eos % (Auto) 1.2 (0.0-4.0) % Baso % (Auto) 0.5 (0.0-2.0) % Neut # 17.6 H (1.8-7.0) K/uL Lymph # 2.5 (1.0-4.3) K/uL Norman # 1.4 H (0.0-0.8) K/uL Eos # 0.3 (0.0-0.7) K/uL Baso # 0.1 (0.0-0.2) K/uL PT (9.8-13.1) Seconds INR (0.9-1.2) APTT (25.6-37.1) Seconds pCO2 (35-45) mm/Hg pO2 (80-100) mm/Hg HCO3 (21-28) mmol/L ABG pH (7.35-7.45) ABG Total CO2 (22-28) mmol/L ABG O2 Saturation (95-98) % ABG O2 Content (15-23) ML/dL ABG Base Excess (-2.0-3.0) mmol/L ABG Hemoglobin (11.7-17.4) g/dL ABG Carboxyhemoglobin (0.5-1.5) % POC ABG HHb (Measured) (0.0-5.0) % ABG Methemoglobin (0.0-3.0) % ABG O2 Capacity (16-24) mL/dL Quirino Test A-a O2 Difference mm/Hg Hgb O2 Saturation (95.0-98.0) % Vent Mode FiO2 % PEEP Pressure Support Sodium 139 (132-148) mmol/l Potassium 4.6 (3.6-5.0) MMOL/L Chloride 99 (98-107) mmol/L Carbon Dioxide 26 (22-30) mmol/L Anion Gap 19 (10-20) BUN 68 H (9-20) mg/dl Creatinine 6.5 H (0.8-1.5) mg/dL Est GFR ( Amer) 11 Est GFR (Non-Af Amer) 9 Random Glucose 123 H (75-110) mg/dL Lactic Acid (0.7-2.1) MMOL/L Calcium 8.4 (8.4-10.2) mg/dL Total Bilirubin 5.7 H (0.2-1.3) mg/dl AST 181 H D (17-59) U/L ALT 109 H D (21-72) U/L Alkaline Phosphatase 148 H (38-126) U/L Total Protein 6.8 (6.3-8.2) G/DL Albumin 2.8 L (3.5-5.0) g/dL Globulin 4.0 H (2.2-3.9) gm/dL Albumin/Globulin Ratio 0.7 L (1.0-2.1) Heparin-induced Plt Ab (Negative) Blood Type O POSITIVE Antibody Screen Negative BBK History Checked Patient has bt 10/11/16 Range/Units 07:01 WBC (4.8-10.8) K/uL RBC (4.40-5.90) Mil/uL Hgb (12.0-18.0) g/dL Hct (35.0-51.0) % MCV (80.0-94.0) fl MCH (27.0-31.0) pg MCHC (33.0-37.0) g/dL RDW (11.5-14.5) % Plt Count (130-400) K/uL MPV (7.2-11.7) fl Neut % (Auto) (50.0-75.0) % Lymph % (Auto) (20.0-40.0) % Norman % (Auto) (0.0-10.0) % Eos % (Auto) (0.0-4.0) % Baso % (Auto) (0.0-2.0) % Neut # (1.8-7.0) K/uL Lymph # (1.0-4.3) K/uL Norman # (0.0-0.8) K/uL Eos # (0.0-0.7) K/uL Baso # (0.0-0.2) K/uL PT (9.8-13.1) Seconds INR (0.9-1.2) APTT (25.6-37.1) Seconds pCO2 (35-45) mm/Hg pO2 (80-100) mm/Hg HCO3 (21-28) mmol/L ABG pH (7.35-7.45) ABG Total CO2 (22-28) mmol/L ABG O2 Saturation (95-98) % ABG O2 Content (15-23) ML/dL ABG Base Excess (-2.0-3.0) mmol/L ABG Hemoglobin (11.7-17.4) g/dL ABG Carboxyhemoglobin (0.5-1.5) % POC ABG HHb (Measured) (0.0-5.0) % ABG Methemoglobin (0.0-3.0) % ABG O2 Capacity (16-24) mL/dL Quirino Test A-a O2 Difference mm/Hg Hgb O2 Saturation (95.0-98.0) % Vent Mode FiO2 % PEEP Pressure Support Sodium (132-148) mmol/l Potassium (3.6-5.0) MMOL/L Chloride (98-107) mmol/L Carbon Dioxide (22-30) mmol/L Anion Gap (10-20) BUN (9-20) mg/dl Creatinine (0.8-1.5) mg/dL Est GFR ( Amer) Est GFR (Non-Af Amer) Random Glucose (75-110) mg/dL Lactic Acid (0.7-2.1) MMOL/L Calcium (8.4-10.2) mg/dL Total Bilirubin (0.2-1.3) mg/dl AST (17-59) U/L ALT (21-72) U/L Alkaline Phosphatase (38-126) U/L Total Protein (6.3-8.2) G/DL Albumin (3.5-5.0) g/dL Globulin (2.2-3.9) gm/dL Albumin/Globulin Ratio (1.0-2.1) Heparin-induced Plt Ab Weak positive H (Negative) Blood Type Antibody Screen BBK History Checked Laboratory Results - last 24 hr 10/11/16 10/14/16 10/14/16 07:01 05:30 05:30 WBC 21.8 H RBC 3.51 L Hgb 9.5 L Hct 30.3 L MCV 86.5 MCH 27.2 MCHC 31.4 L RDW 16.7 H Plt Count 82 L D MPV 11.4 Neut % (Auto) 80.6 H Lymph % (Auto) 11.4 L Norman % (Auto) 6.3 Eos % (Auto) 1.2 Baso % (Auto) 0.5 Neut # 17.6 H Lymph # 2.5 Norman # 1.4 H Eos # 0.3 Baso # 0.1 PT INR APTT pCO2 pO2 HCO3 ABG pH ABG Total CO2 ABG O2 Saturation ABG O2 Content ABG Base Excess ABG Hemoglobin ABG Carboxyhemoglobin POC ABG HHb (Measured) ABG Methemoglobin ABG O2 Capacity Quirino Test A-a O2 Difference Hgb O2 Saturation Vent Mode FiO2 PEEP Pressure Support Sodium 139 Potassium 4.6 Chloride 99 Carbon Dioxide 26 Anion Gap 19 BUN 68 H Creatinine 6.5 H Est GFR ( Amer) 11 Est GFR (Non-Af Amer) 9 Random Glucose 123 H Lactic Acid Calcium 8.4 Total Bilirubin 5.7 H AST 181 H D ALT 109 H D Alkaline Phosphatase 148 H Total Protein 6.8 Albumin 2.8 L Globulin 4.0 H Albumin/Globulin Ratio 0.7 L Heparin-induced Plt Ab Weak positive H Blood Type Antibody Screen BBK History Checked 10/14/16 10/14/16 10/15/16 10:45 11:01 04:20 WBC RBC Hgb Hct MCV MCH MCHC RDW Plt Count MPV Neut % (Auto) Lymph % (Auto) Norman % (Auto) Eos % (Auto) Baso % (Auto) Neut # Lymph # Norman # Eos # Baso # PT 37.2 H D INR 3.2 H APTT 72.0 H D pCO2 46 H pO2 160 H HCO3 24.6 ABG pH 7.35 ABG Total CO2 26.8 ABG O2 Saturation 100.0 H ABG O2 Content 13.9 L ABG Base Excess -0.4 ABG Hemoglobin 9.9 L ABG Carboxyhemoglobin 1.6 H POC ABG HHb (Measured) 0.0 ABG Methemoglobin 1.4 ABG O2 Capacity 13.9 L Quirino Test Yes A-a O2 Difference 103.0 Hgb O2 Saturation 97.0 Vent Mode Cpap FiO2 45.0 PEEP 5 Pressure Support 10 Sodium Potassium Chloride Carbon Dioxide Anion Gap BUN Creatinine Est GFR ( Amer) Est GFR (Non-Af Amer) Random Glucose Lactic Acid Calcium Total Bilirubin AST ALT Alkaline Phosphatase Total Protein Albumin Globulin Albumin/Globulin Ratio Heparin-induced Plt Ab Blood Type O POSITIVE Antibody Screen Negative BBK History Checked Patient has bt 10/15/16 10/15/16 10/15/16 04:20 04:20 04:35 WBC 21.7 H RBC 3.30 L Hgb 9.2 L Hct 29.0 L MCV 87.8 MCH 28.0 MCHC 31.9 L RDW 16.8 H Plt Count 130 MPV 11.5 Neut % (Auto) 81.4 H Lymph % (Auto) 12.1 L Norman % (Auto) 6.0 Eos % (Auto) 0.3 Baso % (Auto) 0.2 Neut # 17.6 H Lymph # 2.6 Norman # 1.3 H Eos # 0.1 Baso # 0.1 PT INR APTT pCO2 pO2 HCO3 ABG pH ABG Total CO2 ABG O2 Saturation ABG O2 Content ABG Base Excess ABG Hemoglobin ABG Carboxyhemoglobin POC ABG HHb (Measured) ABG Methemoglobin ABG O2 Capacity Quirino Test A-a O2 Difference Hgb O2 Saturation Vent Mode FiO2 PEEP Pressure Support Sodium 141 Potassium 5.6 H Chloride 102 Carbon Dioxide 21 L Anion Gap 24 H BUN 100 H* D Creatinine 7.9 H* D Est GFR ( Amer) 9 Est GFR (Non-Af Amer) 7 Random Glucose 125 H Lactic Acid 2.6 H Calcium 8.0 L Total Bilirubin 6.9 H AST 128 H D ALT 92 H Alkaline Phosphatase 127 H Total Protein 6.7 Albumin 2.8 L Globulin 4.0 H Albumin/Globulin Ratio 0.7 L Heparin-induced Plt Ab Blood Type Antibody Screen BBK History Checked 10/15/16 05:50 WBC RBC Hgb Hct MCV MCH MCHC RDW Plt Count MPV Neut % (Auto) Lymph % (Auto) Norman % (Auto) Eos % (Auto) Baso % (Auto) Neut # Lymph # Norman # Eos # Baso # PT INR APTT pCO2 39 pO2 96 HCO3 24.0 ABG pH 7.39 ABG Total CO2 24.8 ABG O2 Saturation 99.3 H ABG O2 Content 13.1 L ABG Base Excess -1.2 ABG Hemoglobin 9.6 L ABG Carboxyhemoglobin 1.7 H POC ABG HHb (Measured) 0.7 ABG Methemoglobin 1.9 ABG O2 Capacity 13.2 L Quirino Test Yes A-a O2 Difference 212.0 Hgb O2 Saturation 95.7 Vent Mode 50% vm FiO2 50.0 PEEP Pressure Support Sodium Potassium Chloride Carbon Dioxide Anion Gap BUN Creatinine Est GFR ( Amer) Est GFR (Non-Af Amer) Random Glucose Lactic Acid Calcium Total Bilirubin AST ALT Alkaline Phosphatase Total Protein Albumin Globulin Albumin/Globulin Ratio Heparin-induced Plt Ab Blood Type Antibody Screen BBK History Checked Review of Systems - Review of Systems Systems not reviewed;Unavailable: Acuity of Condition Critical Care Progress Note - Extremities/Vascular Does the Patient have a Central Venous Catheter?: Yes Does the Patient need a Central Venous Catheter?: Yes Does the Patient have a Taylor Catheter?: Yes Does the Patient need a Taylor Catheter?: Yes Assessment/Plan (1) Severe sepsis Current Visit: Yes Status: Acute Comment: Off levophed drip Continue empiric abx coverage (2) Ischemic necrosis of small bowel Current Visit: Yes Status: Acute Comment: Ischemic entire small bowel and right colon S/p Exploratory laparotomy with examination of entire bowel 10/06 No further surgical intervention Continue empiric abx coverage IV vancomycin, IV flagyl, IV meropenem and IV micafungin. (3) Paroxysmal atrial fibrillation Current Visit: Yes Status: Acute Comment: HR controlled, Back in NSR Auto anticoagulated Off Amiodarone drip (4) Ischemic necrosis of large intestine Current Visit: Yes Status: Acute (5) Acute diffuse ischemia of intestine Current Visit: Yes Status: Acute (6) Acute renal failure (ARF) Current Visit: Yes Status: Acute Comment: HD access placed, right groin Continue HD as per renal (7) CAD (coronary artery disease) Current Visit: Yes Status: Acute (8) Hx of CABG Current Visit: Yes Status: Acute (9) Shock liver Current Visit: Yes Status: Acute (10) Thrombocytopenia Current Visit: Yes Status: Acute
--- NOTE | 2016-10-15 09:20 | CP.PCM.PN ---
Subjective - Date & Time of Evaluation Date of Evaluation: 10/15/16 Time of Evaluation: 09:20 - Subjective Subjective: EXTUBATED RESPONDS TO VERBAL COMMANDS Objective - Vital Signs/Intake and Output Vital Signs (last 24 hours): Temp Pulse Resp BP Pulse Ox 99.3 F 72 23 157/73 H 99 10/15/16 08:00 10/15/16 08:00 10/15/16 08:00 10/15/16 08:00 10/15/16 08:00 Intake and Output: 10/15/16 10/15/16 06:59 18:59 Intake Total 440 40 Output Total 250 50 Balance 190 -10 - Medications Medications: Current Medications Acetaminophen (Tylenol 325mg Tab) 650 mg PO Q6 PRN PRN Reason: Fever >100.4 F Metronidazole (Flagyl 500mg/100ml Ns) 100 mls @ 100 mls/hr IVPB Q8 [facility] Last Admin: 10/15/16 01:25 Dose: 100 mls/hr Pantoprazole Sodium 40 mg/ (Sodium Chloride) 100 mls @ 20 mls/hr IVPB Q5H [facility]UTHY PRN Reason: 8 MG/HR Last Admin: 10/15/16 03:45 Dose: 20 mls/hr Meropenem 500 mg/ Sodium (Chloride) 100 mls @ 100 mls/hr IVPB Q12 [facility] Last Admin: 10/14/16 21:32 Dose: 100 mls/hr Vancomycin HCl 750 mg/ Sodium (Chloride) 250 mls @ 166.667 mls/hr IVPB QOTHERDAY [facility] Labetalol HCl (Trandate) 100 mg PO BID [facility] Last Admin: 10/14/16 16:00 Dose: Not Given Labetalol HCl (Trandate) 20 mg IVP Q4 PRN PRN Reason: Systolic Blood Pressure Last Admin: 10/15/16 06:55 Dose: 20 mg Morphine Sulfate (Morphine) 4 mg IVP Q4 PRN PRN Reason: Pain, severe (8-10) Last Admin: 10/14/16 21:53 Dose: 4 mg Ondansetron HCl (Zofran Inj) 4 mg IVP Q6 PRN PRN Reason: Nausea/Vomiting - Labs Labs: 10/15/16 04:35 10/15/16 04:20 PT 37.2 Seconds (9.8-13.1) H D 10/15/16 04:20 INR 3.2 (0.9-1.2) H 10/15/16 04:20 APTT 72.0 Seconds (25.6-37.1) H D 10/15/16 04:20 - Constitutional Appears: Chronically Ill - Head Exam Head Exam: ATRAUMATIC, NORMAL INSPECTION, NORMOCEPHALIC - Eye Exam Eye Exam: EOMI, Normal appearance, PERRL Pupil Exam: NORMAL ACCOMODATION, PERRL - ENT Exam ENT Exam: Mucous Membranes Moist, Normal Exam - Neck Exam Neck Exam: Full ROM, Normal Inspection. absent: Lymphadenopathy - Respiratory Exam Respiratory Exam: NORMAL BREATHING PATTERN - Cardiovascular Exam Cardiovascular Exam: REGULAR RHYTHM, +S1, +S2. absent: Murmur - GI/Abdominal Exam GI & Abdominal Exam: Soft, Normal Bowel Sounds. absent: Tenderness - Rectal Exam Rectal Exam: NORMAL INSPECTION - Extremities Exam Extremities Exam: Full ROM, Normal Capillary Refill, Normal Inspection. absent : Joint Swelling, Pedal Edema - Back Exam Back Exam: NORMAL INSPECTION - Psychiatric Exam Psychiatric exam: Normal Affect, Normal Mood - Skin Skin Exam: Dry, Intact, Normal Color, Warm Assessment and Plan - Assessment and Plan (Free Text) Assessment: ISCHEMIC BOWEL RESPIRATORY FAILURE-RESOLVED Plan: EXTUBATED WILL CONTINUE TO FOLLOW WITH YOU
[2016-10-15] MEDS: Meropenem 500 MG in Sodium Chloride 0.9% 100 ML IVPB SCH ×2 (09:30→20:59)
--- NOTE | 2016-10-15 09:33 | CP.PCM.PN ---
Subjective - Date & Time of Evaluation Date of Evaluation: 10/15/16 Time of Evaluation: 09:31 - Subjective Subjective: Patient appears to be responding somewhat Patient extubated Patient is going for CT scan with IV contrast therefore we will do dialysis today post contrast CAT scan And meantime patient has potassium 5.6 please give Kayexalate stat . The impression and plan As noted above to give dialysis today instead of tomorrow Overall condition some improvement because of patient extubated and responding somewhat and continue hemodialysis Objective - Vital Signs/Intake and Output Vital Signs (last 24 hours): Temp Pulse Resp BP Pulse Ox 99.3 F 72 23 157/73 H 99 10/15/16 08:00 10/15/16 08:00 10/15/16 08:00 10/15/16 08:00 10/15/16 08:00 Intake and Output: 10/15/16 10/15/16 06:59 18:59 Intake Total 440 40 Output Total 250 50 Balance 190 -10 - Medications Medications: Current Medications Acetaminophen (Tylenol 325mg Tab) 650 mg PO Q6 PRN PRN Reason: Fever >100.4 F Metronidazole (Flagyl 500mg/100ml Ns) 100 mls @ 100 mls/hr IVPB Q8 [facility] Last Admin: 10/15/16 09:26 Dose: 100 mls/hr Pantoprazole Sodium 40 mg/ (Sodium Chloride) 100 mls @ 20 mls/hr IVPB Q5H [facility] PRN Reason: 8 MG/HR Last Admin: 10/15/16 09:27 Dose: 20 mls/hr Meropenem 500 mg/ Sodium (Chloride) 100 mls @ 100 mls/hr IVPB Q12 RUTHY Last Admin: 10/14/16 21:32 Dose: 100 mls/hr Vancomycin HCl 750 mg/ Sodium (Chloride) 250 mls @ 166.667 mls/hr IVPB QOTHERDAY [facility] Labetalol HCl (Trandate) 100 mg PO BID [facility] Last Admin: 10/14/16 16:00 Dose: Not Given Labetalol HCl (Trandate) 20 mg IVP Q4 PRN PRN Reason: Systolic Blood Pressure Last Admin: 10/15/16 06:55 Dose: 20 mg Morphine Sulfate (Morphine) 4 mg IVP Q4 PRN PRN Reason: Pain, severe (8-10) Last Admin: 10/14/16 21:53 Dose: 4 mg Ondansetron HCl (Zofran Inj) 4 mg IVP Q6 PRN PRN Reason: Nausea/Vomiting - Labs Labs: 10/15/16 04:35 10/15/16 04:20 PT 37.2 Seconds (9.8-13.1) H D 10/15/16 04:20 INR 3.2 (0.9-1.2) H 10/15/16 04:20 APTT 72.0 Seconds (25.6-37.1) H D 10/15/16 04:20 Assessment and Plan (1) Acute renal failure (ARF) Status: Acute
[2016-10-15] MEDS: Morphine 4 MG/ML VIAL IVP PRN ×2 (09:37→17:00)
--- NOTE | 2016-10-15 10:44 | RAD ---
HISTORY: f/u Effusions, Atelectasis COMPARISON: 10/14/2016 FINDINGS: LUNGS: No pulmonary infiltrate. Linear opacity transversely, right suprahilar. Scar versus atelectasis. PLEURA: No significant pleural effusion identified, no pneumothorax apparent. CARDIOVASCULAR: Mild pulmonary vascular congestive change. Sternotomy wires. Endotracheal tube and nasogastric tube grossly unchanged. OSSEOUS STRUCTURES: No significant abnormalities. VISUALIZED UPPER ABDOMEN: Normal. OTHER FINDINGS: None. IMPRESSION: No acute infiltrate. Stable linear opacity mid right lung. ET tube and NG tube unchanged. Mild congestive change.
--- NOTE | 2016-10-15 11:08 | CP.PCM.PN ---
Subjective - Date & Time of Evaluation Date of Evaluation: 10/15/16 Time of Evaluation: 11:08 - Subjective Subjective: ID Note- Pt. seen and examined in ICU today. S/P extubation . Pt. moans and groans to verbal and tactile stimuli. no new events as per nurse. Objective - Vital Signs/Intake and Output Vital Signs (last 24 hours): Temp Pulse Resp BP Pulse Ox 99.3 F 81 12 148/85 97 10/15/16 08:00 10/15/16 10:00 10/15/16 10:00 10/15/16 10:00 10/15/16 10:00 Intake and Output: 10/15/16 10/15/16 06:59 18:59 Intake Total 440 190 Output Total 250 100 Balance 190 90 - Medications Medications: Current Medications Acetaminophen (Tylenol 325mg Tab) 650 mg PO Q6 PRN PRN Reason: Fever >100.4 F Metronidazole (Flagyl 500mg/100ml Ns) 100 mls @ 100 mls/hr IVPB Q8 [facility] Last Admin: 10/15/16 09:26 Dose: 100 mls/hr Pantoprazole Sodium 40 mg/ (Sodium Chloride) 100 mls @ 20 mls/hr IVPB Q5H [facility] PRN Reason: 8 MG/HR Last Admin: 10/15/16 09:27 Dose: 20 mls/hr Meropenem 500 mg/ Sodium (Chloride) 100 mls @ 100 mls/hr IVPB Q12 [facility] Last Admin: 10/15/16 09:30 Dose: 100 mls/hr Vancomycin HCl 750 mg/ Sodium (Chloride) 250 mls @ 166.667 mls/hr IVPB QOTHERDAY [facility] Labetalol HCl (Trandate) 100 mg PO BID [facility] Last Admin: 10/15/16 09:41 Dose: Not Given Labetalol HCl (Trandate) 20 mg IVP Q4 PRN PRN Reason: Systolic Blood Pressure Last Admin: 10/15/16 06:55 Dose: 20 mg Morphine Sulfate (Morphine) 4 mg IVP Q4 PRN PRN Reason: Pain, severe (8-10) Last Admin: 10/15/16 09:37 Dose: 4 mg Ondansetron HCl (Zofran Inj) 4 mg IVP Q6 PRN PRN Reason: Nausea/Vomiting - Labs Labs: - Constitutional Appears: Toxic - Head Exam Head Exam: ATRAUMATIC - ENT Exam Additional comments: NGT- dark output - Respiratory Exam Additional comments: decreased breath sounds at bases no wheezing - Cardiovascular Exam Cardiovascular Exam: RRR, +S1, +S2 - GI/Abdominal Exam Additional comments: slightly less distended , hypoactivve BS midabdominal surgical site clean/ no discharge, no erythema tenderness to palp - Extremities Exam Extremities Exam: Normal Inspection - Neurological Exam Additional comments: awakens when name is called and moans - Additional Findings Additional findings: Laboratory Results - last 72 hr 10/11/16 10/12/16 10/12/16 07:01 07:00 17:28 WBC 17.5 H RBC 3.30 L Hgb 9.0 L Hct 28.3 L MCV 85.8 MCH 27.4 MCHC 31.9 L RDW 16.2 H Plt Count 42 L MPV 10.3 Neut % (Auto) 85.2 H Lymph % (Auto) 9.4 L [place] % (Auto) 3.6 Eos % (Auto) 1.0 Baso % (Auto) 0.8 Neut # 14.9 H Lymph # 1.7 [place] # 0.6 Eos # 0.2 Baso # 0.1 PT INR APTT pCO2 pO2 HCO3 ABG pH ABG Total CO2 ABG O2 Saturation ABG O2 Content ABG Base Excess ABG Hemoglobin ABG Carboxyhemoglobin POC ABG HHb (Measured) ABG Methemoglobin ABG O2 Capacity Quirino Test A-a O2 Difference Hgb O2 Saturation Vent Mode Mechanical Rate FiO2 Tidal Volume PEEP Pressure Support Sodium Potassium Chloride Carbon Dioxide Anion Gap BUN Creatinine Est GFR ( Amer) Est GFR (Non-Af Amer) Random Glucose Lactic Acid Calcium Total Bilirubin AST ALT Alkaline Phosphatase Total Protein Albumin Globulin Albumin/Globulin Ratio Procalcitonin 66.39 H Urine Color Urine Clarity Urine pH Ur Specific [place] Urine Protein Urine Glucose (UA) Urine Ketones Urine Blood Urine Nitrate Urine Bilirubin Urine Urobilinogen Ur Leukocyte Esterase Urine RBC (Auto) Urine Microscopic WBC Ur Squamous Epith Cells Urine Bacteria Urine Yeast (Budding) Heparin-induced Plt Ab Weak positive H Blood Type Antibody Screen BBK History Checked 10/13/16 10/13/16 10/13/16 05:11 05:30 05:30 WBC 17.2 H RBC 3.20 L Hgb 8.7 L Hct 27.8 L MCV 86.9 MCH 27.1 MCHC 31.2 L RDW 16.5 H Plt Count 45 L MPV Neut % (Auto) Lymph % (Auto) [place] % (Auto) Eos % (Auto) Baso % (Auto) Neut # Lymph # [place] # Eos # Baso # PT 42.2 H* D INR 3.6 H D APTT 89.2 H D pCO2 39 pO2 123 H HCO3 27.2 ABG pH 7.45 ABG Total CO2 28.3 H ABG O2 Saturation 99.8 H ABG O2 Content 12.8 L ABG Base Excess 2.9 ABG Hemoglobin 9.2 L ABG Carboxyhemoglobin 1.6 H POC ABG HHb (Measured) 0.2 ABG Methemoglobin 1.6 ABG O2 Capacity 12.8 L Quirino Test Yes A-a O2 Difference 149.0 Hgb O2 Saturation 96.7 Vent Mode Prvc/ac Mechanical Rate 18 FiO2 45.0 Tidal Volume 550 PEEP 5 Pressure Support Sodium Potassium Chloride Carbon Dioxide Anion Gap BUN Creatinine Est GFR ( Amer) Est GFR (Non-Af Amer) Random Glucose Lactic Acid Calcium Total Bilirubin AST ALT Alkaline Phosphatase Total Protein Albumin Globulin Albumin/Globulin Ratio Procalcitonin Urine Color Urine Clarity Urine pH Ur Specific [place] Urine Protein Urine Glucose (UA) Urine Ketones Urine Blood Urine Nitrate Urine Bilirubin Urine Urobilinogen Ur Leukocyte Esterase Urine RBC (Auto) Urine Microscopic WBC Ur Squamous Epith Cells Urine Bacteria Urine Yeast (Budding) Heparin-induced Plt Ab Blood Type Antibody Screen BBK History Checked 10/13/16 10/13/16 10/14/16 05:30 15:35 05:17 WBC RBC Hgb Hct MCV MCH MCHC RDW Plt Count MPV Neut % (Auto) Lymph % (Auto) [place] % (Auto) Eos % (Auto) Baso % (Auto) Neut # Lymph # [place] # Eos # Baso # PT INR APTT pCO2 44 pO2 118 H HCO3 27.3 ABG pH 7.41 ABG Total CO2 29.3 H ABG O2 Saturation 99.1 H ABG O2 Content 9.9 L ABG Base Excess 3.0 ABG Hemoglobin 7.1 L ABG Carboxyhemoglobin 0.9 POC ABG HHb (Measured) 0.9 ABG Methemoglobin 2.0 ABG O2 Capacity 10.0 L Quirino Test Yes A-a O2 Difference 112.0 Hgb O2 Saturation 96.2 Vent Mode A/c Mechanical Rate 18 FiO2 40.0 Tidal Volume 550 PEEP 5 Pressure Support Sodium 137 Potassium 4.4 Chloride 96 L Carbon Dioxide 24 Anion Gap 21 H BUN 101 H* D Creatinine 7.6 H* Est GFR ( Amer) 9 Est GFR (Non-Af Amer) 8 Random Glucose 117 H Lactic Acid Calcium 7.7 L Total Bilirubin AST ALT Alkaline Phosphatase Total Protein Albumin Globulin Albumin/Globulin Ratio Procalcitonin Urine Color Jennifer Urine Clarity Cloudy Urine pH 5.0 Ur Specific [place] 1.020 Urine Protein 100 Urine Glucose (UA) Neg Urine Ketones Trace Urine Blood Large Urine Nitrate Negative Urine Bilirubin Negative Urine Urobilinogen 0.2-1.0 Ur Leukocyte Esterase Trace Urine RBC (Auto) 57 H Urine Microscopic WBC 16 H Ur Squamous Epith Cells < 1 Urine Bacteria Rare Urine Yeast (Budding) Mod H Heparin-induced Plt Ab Blood Type Antibody Screen BBK History Checked 10/14/16 10/14/16 10/14/16 05:30 05:30 10:45 WBC 21.8 H RBC 3.51 L Hgb 9.5 L Hct 30.3 L MCV 86.5 MCH 27.2 MCHC 31.4 L RDW 16.7 H Plt Count 82 L D MPV 11.4 Neut % (Auto) 80.6 H Lymph % (Auto) 11.4 L [place] % (Auto) 6.3 Eos % (Auto) 1.2 Baso % (Auto) 0.5 Neut # 17.6 H Lymph # 2.5 [place] # 1.4 H Eos # 0.3 Baso # 0.1 PT INR APTT pCO2 pO2 HCO3 ABG pH ABG Total CO2 ABG O2 Saturation ABG O2 Content ABG Base Excess ABG Hemoglobin ABG Carboxyhemoglobin POC ABG HHb (Measured) ABG Methemoglobin ABG O2 Capacity Quirino Test A-a O2 Difference Hgb O2 Saturation Vent Mode Mechanical Rate FiO2 Tidal Volume PEEP Pressure Support Sodium 139 Potassium 4.6 Chloride 99 Carbon Dioxide 26 Anion Gap 19 BUN 68 H Creatinine 6.5 H Est GFR ( Amer) 11 Est GFR (Non-Af Amer) 9 Random Glucose 123 H Lactic Acid Calcium 8.4 Total Bilirubin 5.7 H AST 181 H D ALT 109 H D Alkaline Phosphatase 148 H Total Protein 6.8 Albumin 2.8 L Globulin 4.0 H Albumin/Globulin Ratio 0.7 L Procalcitonin Urine Color Urine Clarity Urine pH Ur Specific [place] Urine Protein Urine Glucose (UA) Urine Ketones Urine Blood Urine Nitrate Urine Bilirubin Urine Urobilinogen Ur Leukocyte Esterase Urine RBC (Auto) Urine Microscopic WBC Ur Squamous Epith Cells Urine Bacteria Urine Yeast (Budding) Heparin-induced Plt Ab Blood Type O POSITIVE Antibody Screen Negative BBK History Checked Patient has bt 10/14/16 10/15/16 10/15/16 11:01 04:20 04:20 WBC RBC Hgb Hct MCV MCH MCHC RDW Plt Count MPV Neut % (Auto) Lymph % (Auto) [place] % (Auto) Eos % (Auto) Baso % (Auto) Neut # Lymph # [place] # Eos # Baso # PT 37.2 H D INR 3.2 H APTT 72.0 H D pCO2 46 H pO2 160 H HCO3 24.6 ABG pH 7.35 ABG Total CO2 26.8 ABG O2 Saturation 100.0 H ABG O2 Content 13.9 L ABG Base Excess -0.4 ABG Hemoglobin 9.9 L ABG Carboxyhemoglobin 1.6 H POC ABG HHb (Measured) 0.0 ABG Methemoglobin 1.4 ABG O2 Capacity 13.9 L Quirino Test Yes A-a O2 Difference 103.0 Hgb O2 Saturation 97.0 Vent Mode Cpap Mechanical Rate FiO2 45.0 Tidal Volume PEEP 5 Pressure Support 10 Sodium 141 Potassium 5.6 H Chloride 102 Carbon Dioxide 21 L Anion Gap 24 H BUN 100 H* D Creatinine 7.9 H* D Est GFR ( Amer) 9 Est GFR (Non-Af Amer) 7 Random Glucose 125 H Lactic Acid Calcium 8.0 L Total Bilirubin 6.9 H AST 128 H D ALT 92 H Alkaline Phosphatase 127 H Total Protein 6.7 Albumin 2.8 L Globulin 4.0 H Albumin/Globulin Ratio 0.7 L Procalcitonin Urine Color Urine Clarity Urine pH Ur Specific [place] Urine Protein Urine Glucose (UA) Urine Ketones Urine Blood Urine Nitrate Urine Bilirubin Urine Urobilinogen Ur Leukocyte Esterase Urine RBC (Auto) Urine Microscopic WBC Ur Squamous Epith Cells Urine Bacteria Urine Yeast (Budding) Heparin-induced Plt Ab Blood Type Antibody Screen BBK History Checked 10/15/16 10/15/16 10/15/16 04:20 04:35 05:50 WBC 21.7 H RBC 3.30 L Hgb 9.2 L Hct 29.0 L MCV 87.8 MCH 28.0 MCHC 31.9 L RDW 16.8 H Plt Count 130 MPV 11.5 Neut % (Auto) 81.4 H Lymph % (Auto) 12.1 L [place] % (Auto) 6.0 Eos % (Auto) 0.3 Baso % (Auto) 0.2 Neut # 17.6 H Lymph # 2.6 [place] # 1.3 H Eos # 0.1 Baso # 0.1 PT INR APTT pCO2 39 pO2 96 HCO3 24.0 ABG pH 7.39 ABG Total CO2 24.8 ABG O2 Saturation 99.3 H ABG O2 Content 13.1 L ABG Base Excess -1.2 ABG Hemoglobin 9.6 L ABG Carboxyhemoglobin 1.7 H POC ABG HHb (Measured) 0.7 ABG Methemoglobin 1.9 ABG O2 Capacity 13.2 L Quirino Test Yes A-a O2 Difference 212.0 Hgb O2 Saturation 95.7 Vent Mode 50% vm Mechanical Rate FiO2 50.0 Tidal Volume PEEP Pressure Support Sodium Potassium Chloride Carbon Dioxide Anion Gap BUN Creatinine Est GFR ( Amer) Est GFR (Non-Af Amer) Random Glucose Lactic Acid 2.6 H Calcium Total Bilirubin AST ALT Alkaline Phosphatase Total Protein Albumin Globulin Albumin/Globulin Ratio Procalcitonin Urine Color Urine Clarity Urine pH Ur Specific [place] Urine Protein Urine Glucose (UA) Urine Ketones Urine Blood Urine Nitrate Urine Bilirubin Urine Urobilinogen Ur Leukocyte Esterase Urine RBC (Auto) Urine Microscopic WBC Ur Squamous Epith Cells Urine Bacteria Urine Yeast (Budding) Heparin-induced Plt Ab Blood Type Antibody Screen BBK History Checked Microbiology 10/13/16 15:35 Urine,Taylor Urine Culture - Final No Growth (<1,000 CFU/ML) 10/13/16 15:35 Trachasp Gram Stain - Final 10/13/16 15:35 Trachasp Sputum Culture - Final Yeast Species 10/13/16 14:10 Blood-Venous Blood Culture - Preliminary NO GROWTH AFTER 24 HOURS 10/13/16 14:10 Blood-Venous Blood Culture - Preliminary NO GROWTH AFTER 24 HOURS 10/06/16 11:10 Nose MRSA Culture (Admit) - Final MRSA NOT DETECTED Accession No. : [id number] Patient Name / ID : CORTNEY MONTILLA / [id number] Exam Date : 10/15/2016 04:18:28 ( Approved ) Study Comment : Sex / Age : M / 51Y Creator : Theo Piña MD Dictator : Theo Piña MD Trench Digger : Auditor Tax : Theo Piña MD Approver2 : Report Date : 10/15/2016 10:38:41 My Comment : HISTORY: f/u Effusions, Atelectasis COMPARISON: 10/14/2016 FINDINGS: LUNGS: No pulmonary infiltrate. Linear opacity transversely, right suprahilar. Scar versus atelectasis. PLEURA: No significant pleural effusion identified, no pneumothorax apparent. CARDIOVASCULAR: Mild pulmonary vascular congestive change. Sternotomy wires. Endotracheal tube and nasogastric tube grossly unchanged. OSSEOUS STRUCTURES: No significant abnormalities. VISUALIZED UPPER ABDOMEN: Normal. OTHER FINDINGS: None. IMPRESSION: No acute infiltrate. Stable linear opacity mid right lung. ET tube and NG tube unchanged. Mild congestive change. Assessment and Plan (1) Acute diffuse ischemia of intestine Status: Acute (2) Acute renal failure Status: Acute (3) Hx of CABG Status: Acute (4) CAD (coronary artery disease) Status: Acute (5) Shock liver Status: Acute (6) Severe sepsis Status: Acute - Assessment and Plan (Free Text) Assessment: A/P- 51 year old male with HTN s/p CABG 2 weeks ago was admitted on 10/06/2016 with abd pain found to have mesenteric ischemia, non operable and has remianed on the vent since post ex lap in ICU and has developed ARF on emergent HD , sepsis , shock liver, respiratory dailure and septic. s/p extubation afebrile however leukcoytosis continues to rise despite being on broad spectrum antibiotics most likley secondary to necrotic bowel. blood cx- neg x 2 urine cx- neg trach asp cx- yeast species 1.mesenteric ischemia 2. ARF on HD 3.shock liver 4.sepsis 5.respiratory failure 6. CAD s/p CABG 7. leukocytosis plan- advise to continue with IV meropenem day #3. advise to continue with HD dose IV vancomycin as well. continue with IV flagyl as well. advise to also add IV micafungin. Prognosis poor. ICU time 45 minutes.
--- NOTE | 2016-10-15 14:01 | CP.PCM.PN ---
Subjective - Date & Time of Evaluation Date of Evaluation: 10/14/16 Time of Evaluation: 15:00 - Subjective Subjective: no overnight events Objective - Vital Signs/Intake and Output Vital Signs (last 24 hours): Temp Pulse Resp BP Pulse Ox 97.6 F 81 30 H 165/75 H 98 10/15/16 12:00 10/15/16 12:00 10/15/16 12:00 10/15/16 12:00 10/15/16 12:00 Intake and Output: 10/15/16 10/15/16 06:59 18:59 Intake Total 440 190 Output Total 250 100 Balance 190 90 - Medications Medications: Current Medications Acetaminophen (Tylenol 325mg Tab) 650 mg PO Q6 PRN PRN Reason: Fever >100.4 F Metronidazole (Flagyl 500mg/100ml Ns) 100 mls @ 100 mls/hr IVPB Q8 [facility] Last Admin: 10/15/16 09:26 Dose: 100 mls/hr Pantoprazole Sodium 40 mg/ (Sodium Chloride) 100 mls @ 20 mls/hr IVPB Q5H [facility] PRN Reason: 8 MG/HR Last Admin: 10/15/16 09:27 Dose: 20 mls/hr Meropenem 500 mg/ Sodium (Chloride) 100 mls @ 100 mls/hr IVPB Q12 [facility] Last Admin: 10/15/16 09:30 Dose: 100 mls/hr Vancomycin HCl 750 mg/ Sodium (Chloride) 250 mls @ 166.667 mls/hr IVPB QOTHERDAY [facility] Micafungin Sodium 100 mg/ (Sodium Chloride) 100 mls @ 100 mls/hr IVPB DAILY [facility] Labetalol HCl (Trandate) 100 mg PO BID [facility] Last Admin: 10/15/16 09:41 Dose: Not Given Labetalol HCl (Trandate) 20 mg IVP Q4 PRN PRN Reason: Systolic Blood Pressure Last Admin: 10/15/16 06:55 Dose: 20 mg Morphine Sulfate (Morphine) 4 mg IVP Q4 PRN PRN Reason: Pain, severe (8-10) Last Admin: 10/15/16 09:37 Dose: 4 mg Ondansetron HCl (Zofran Inj) 4 mg IVP Q6 PRN PRN Reason: Nausea/Vomiting - Labs Labs: 10/15/16 04:35 10/15/16 04:20 PT 37.2 Seconds (9.8-13.1) H D 10/15/16 04:20 INR 3.2 (0.9-1.2) H 10/15/16 04:20 APTT 72.0 Seconds (25.6-37.1) H D 10/15/16 04:20 - GI/Abdominal Exam GI & Abdominal Exam: Tenderness, Normal Bowel Sounds Assessment and Plan - Assessment and Plan (Free Text) Assessment: 51 yo male with mesenteric ischemia clinically improving possible transfer for tranplant
--- NOTE | 2016-10-15 14:02 | CP.PCM.PN ---
Subjective - Date & Time of Evaluation Date of Evaluation: 10/15/16 Time of Evaluation: 12:00 - Subjective Subjective: more alert Objective - Vital Signs/Intake and Output Vital Signs (last 24 hours): Temp Pulse Resp BP Pulse Ox 97.6 F 81 30 H 165/75 H 98 10/15/16 12:00 10/15/16 12:00 10/15/16 12:00 10/15/16 12:00 10/15/16 12:00 Intake and Output: 10/15/16 10/15/16 06:59 18:59 Intake Total 440 190 Output Total 250 100 Balance 190 90 - Medications Medications: Current Medications Acetaminophen (Tylenol 325mg Tab) 650 mg PO Q6 PRN PRN Reason: Fever >100.4 F Metronidazole (Flagyl 500mg/100ml Ns) 100 mls @ 100 mls/hr IVPB Q8 [facility] Last Admin: 10/15/16 09:26 Dose: 100 mls/hr Pantoprazole Sodium 40 mg/ (Sodium Chloride) 100 mls @ 20 mls/hr IVPB Q5H [facility] PRN Reason: 8 MG/HR Last Admin: 10/15/16 09:27 Dose: 20 mls/hr Meropenem 500 mg/ Sodium (Chloride) 100 mls @ 100 mls/hr IVPB Q12 [facility] Last Admin: 10/15/16 09:30 Dose: 100 mls/hr Vancomycin HCl 750 mg/ Sodium (Chloride) 250 mls @ 166.667 mls/hr IVPB QOTHERDAY [facility] Micafungin Sodium 100 mg/ (Sodium Chloride) 100 mls @ 100 mls/hr IVPB DAILY [facility] Labetalol HCl (Trandate) 100 mg PO BID [facility] Last Admin: 10/15/16 09:41 Dose: Not Given Labetalol HCl (Trandate) 20 mg IVP Q4 PRN PRN Reason: Systolic Blood Pressure Last Admin: 10/15/16 06:55 Dose: 20 mg Morphine Sulfate (Morphine) 4 mg IVP Q4 PRN PRN Reason: Pain, severe (8-10) Last Admin: 10/15/16 09:37 Dose: 4 mg Ondansetron HCl (Zofran Inj) 4 mg IVP Q6 PRN PRN Reason: Nausea/Vomiting - Labs Labs: 10/15/16 04:35 10/15/16 04:20 PT 37.2 Seconds (9.8-13.1) H D 10/15/16 04:20 INR 3.2 (0.9-1.2) H 10/15/16 04:20 APTT 72.0 Seconds (25.6-37.1) H D 10/15/16 04:20 - GI/Abdominal Exam GI & Abdominal Exam: Soft, Tenderness, Normal Bowel Sounds Assessment and Plan - Assessment and Plan (Free Text) Assessment: 51 yo male with mesenteric ischemia possible transfer CTA when able
[2016-10-15] MEDS ORDERED: Sodium Chloride 0.9% 50 ML IV ONE ×2 (14:51→22:16)
[2016-10-15] MEDS ORDERED: Iodixanol 320 MG/ML 100 ML BOTTLE IV ONE ×2 (14:51→22:16)
[2016-10-15] MEDS: Micafungin 100 MG in Sodium Chloride 0.9% 100 ML IVPB SCH (15:54)
--- NOTE | 2016-10-15 17:20 | CT ---
PROCEDURE: CT Angiography Abdomen, Pelvis and Lower Extremity with Contrast HISTORY: ischemic bowel COMPARISON: None. TECHNIQUE: Technique: CT angiography of the abdomen, pelvis and bilateral lower extremities performed in the arterial phase of enhancement. Coronal and sagittal reformats, and well as rotating MIP images of the vessels generated at the workstation. Intravenous contrast dose: Visipaque 320 -99 cc Radiation dose: Total exam DLP = 3231 mGy-cm. This CT exam was performed using one or more of the following dose reduction techniques: Automated exposure control, adjustment of the mA and/or kV according to patient size, and/or use of iterative reconstruction technique. FINDINGS: CT ANGIOGRAPHY: ABDOMINAL AORTA:: Marked artifact from the patient's arms (which he is unable to position) generates artifact obscuring the majority abdominal aorta. However, there is a thoracic aortic dissection identified at the inferior thoracic aorta as imaged, extending into the upper abdominal aorta at least. Is not clearly identified at the level of the celiac artery or below however. Consider follow-up repeat CT of the chest and abdomen with IV contrast for better characterization of the abdominal aorta and complete comparison characterization of the thoracic aorta. No aneurysmal dilatation identified. MAJOR AORTIC BRANCHES: Celiac [place]: Unremarkable. Superior mesenteric artery: Unremarkable. Inferior mesenteric artery: Unremarkable. Renal arteries: Left renal artery appears patent the right renal artery appears small but is poorly characterized in may be duplicated. PELVIC ARTERIES: Right Common Iliac: Unremarkable. Right External Iliac: Unremarkable. Right Internal Iliac: Unremarkable. Left Common Iliac: Unremarkable. Left External Iliac: Unremarkable. Left Internal Iliac: Unremarkable. RIGHT LOWER EXTREMITY ARTERIES: Right Common Femoral: Unremarkable. Right Superficial Femoral: Not included in this examination. Right Profunda Femoris: Not included in this examination.. Right Popliteal:Not included in this examination.. Right Anterior Tibial: Not included in this examination.. Right Tibioperoneal Trunk: Not included in this examination.. Right Posterior Tibial: Not included in this examination.. Right Peroneal: Not included in this examination.. Right dorsalis pedis : Not included in this examination.. LEFT LOWER EXTREMITY ARTERIES: Left Common Femoral: Unremarkable. Left Superficial Femoral: Not included in this examination.. Left Profunda Femoris: Not included in this examination.. Left Popliteal: Not included in this examination.. Left Anterior Tibial: Not included in this examination.. Left Tibioperoneal Trunk: Not included in this examination.. Left Posterior Tibial: Not included in this examination.. Left Peronea: Not included in this examination.. Left Dorsalis pedis: Not included in this examination.. NON-ANGIOGRAPHIC ASPECT OF THE EXAM: LOWER THORAX: A nasogastric tube is been identified placed terminating in the stomach. Cardiomegaly is noted with mild bilateral pleural effusions increased in the right and slightly decreased in the left adrenal. No definite pericardial effusion. Sternotomy wires identified. LIVER: Unremarkable. No gross lesion or ductal dilatation. GALLBLADDER AND BILE DUCTS: The gallbladder is distended and sludge is not excluded in the lumen. The wall is not well evaluated but does not appear grossly thickened. . PANCREAS: Unremarkable. No gross lesion or ductal dilatation. SPLEEN: Unremarkable. ADRENALS: Unremarkable. No mass. KIDNEYS AND URETERS: Small nodular focus unchanged of the mid to lower pole right kidney posteriorly grossly artifact and in this exam. MRI may be useful for greater characterization. . No hydronephrosis. STOMACH AND BOWEL: The cystostomy status post exploratory laparotomy with skin robby in the anterior abdominal wall. There is no oral contrast administered to this patient which limits interpretation however the prior pneumatosis intestinalis pattern which included not only all of the small bowel but also venous drainage in the central mesentery, is not identified currently. Portal venous gas is also not identified in the liver this time or the superior mesenteric vein. Thickening of collapsed large bowel segments is not excluded throughout the colon. APPENDIX: Normal appendix. PERITONEUM: There is no free intrarenal gas or prominent ascites. Limiting hazy density seen in the inferior bowel mesenteric and trace fluid is seen in the mid to lower abdomen more so than upper abdomen. . LYMPH NODES: Unremarkable. No enlarged lymph nodes. BLADDER: The urinary bladder is now catheterized with a Taylor catheter and otherwise unremarkable. . REPRODUCTIVE: Unremarkable. BONES: No acute fracture. OTHER FINDINGS: Anasarca pattern is suggested. Interval right common femoral central venous catheters been deployed whose tip is likely in the in the right common iliac vein but is obscured by contrast material. IMPRESSION: 1. Apparent resolution of pneumatosis intestinalis, central mesenteric venous gas,superior mesenteric venous gas, as well as portal venous gas. Small and large bowel are limited evaluation due to lack of oral contrast administration this patient. Enteric colitis is not completely excluded. Pancolitis is a possibility as discussed above. No free intrarenal gas. Limited abdominal and pelvic ascites. 2. Nodular changes related to the right kidney are stable and remain potentially suspicious for solid nodule. 3. 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 At and below the level of the celiac artery origin, artifacts obscure evaluation of the abdominal aorta. Consider follow-up chest and abdomen CT with oral and intravenous contrast for greater characterization. 4. Additional lesser findings as discussed above. Findings were discussed with Dr. Mao 10/15/2016, 1630 hours.
[2016-10-15] MEDS ORDERED: Iohexol 240 (50 ml) PO ONE (17:28)
--- NOTE | 2016-10-15 19:14 | CARD ---
APPROVED REPORT EXAM: Two-dimensional and M-mode echocardiogram with Doppler and color Doppler. Other Information Quality : GoodRhythm : NSR INDICATION LV Function:SystolicDiastolic Surgery/Intervention CABG: Date: 08/2016 2D DIMENSIONS IVSd1.41 (0.7-1.1cm)LVDd4.97 (3.9-5.9cm) LVOT Diameter2.40 (1.8-2.4cm)PWd1.08 (0.7-1.1cm) IVSs1.44 (0.8-1.2cm)LVDs3.91 (2.5-4.0cm) FS (%) 21.3 %PWs1.37 (0.8-1.2cm) LVEF (%)50.0 (>50%) M-Mode DIMENSIONS Left Atrium (MM)5.03 (2.5-4.0cm)IVSd1.18 (0.7-1.1cm) Aortic Root3.29 (2.2-3.7cm)LVDd5.32 (4.0-5.6cm) Aortic Cusp Exc.2.26 (1.5-2.0cm)PWd1.06 (0.7-1.1cm) IVSs1.44 cmFS (%) 27 % LVDs3.88 (2.0-3.8cm)PWs1.44 cm Mitral Valve MV E Pyhjnban26.7cm/sMV DECEL [id number] A Houfvnud09.9cm/s MV [id number]/A ratio1.6MVA (PHT)4.11cm2 TDI E/Lateral E'0.0E/Medial E'0.0 Pulmonary Valve PV Peak Itywsbkc296.2cm/s Tricuspid Valve TR Peak [id number]/sRAP [id number] Peak Gr.33mmHg [id number] LEFT VENTRICLE The left ventricle is normal size. There is mild to moderate concentric left ventricular hypertrophy. Left ventricle ejection fraction is borderline. Septal and Apical hypokinesis The left ventricular diastolic function is normal. RIGHT VENTRICLE The right ventricle is normal size. There is normal right ventricular wall thickness. Systolic function is mildly reduced. ATRIA The left atrium is moderately dilated. The right atrium is mildly dilated. AORTIC VALVE The aortic valve is not well visualized. No aortic regurgitation is present. There is no aortic valvular stenosis. MITRAL VALVE The mitral valve is moderately thickened. There is no mitral valve stenosis. Mitral regurgitation is moderate. TRICUSPID VALVE The tricuspid valve is normal in structure There is mild tricuspid regurgitation. There is mild pulmonary hypertension. PULMONIC VALVE The pulmonary valve is normal in structure and function. There is no pulmonic valvular regurgitation. GREAT VESSELS The aortic root is normal in size. The IVC was not visualized. PERICARDIAL EFFUSION The pericardium appears normal. <Conclusion> The left ventricle is normal size. There is mild to moderate concentric left ventricular hypertrophy. Left ventricle ejection fraction is borderline. Septal and Apical hypokinesis Mitral regurgitation is moderate. There is mild tricuspid regurgitation. There is mild pulmonary hypertension.
--- NOTE | 2016-10-15 23:03 | CP.PCM.CON ---
History of Present Illness - History of Present Illness History of Present Illness: Patient is a 51 year-old male with history of heavy tobacco smoking and hypertension whose presentation goes one month back. On September 17, 2016 he was admitted to [facility] with severe chest pain and underwent emergent open heart surgery for, allegedly, aortic dissection involving the arch. As per patient's partner, coronary bypass was also done. Per report, patient had uncomplicated hospital course and was discharged home in 6-7 days on September 23. On October 09 patient was admitted to [facility] with severe abdominal pain and acute abdomen. He underwent exploratory laparotomy and was found to have diffusely ischemic bowel. Patient remained in the ICU since after laparotomy in critical condition. He developed sepsis which with ensuing multiple organ failure, coagulopathy, initiation of dialysis. Earlier today patient underwent CT angiogram of the chest, abdomen and pelvis. While somewhat limited, the study showed thoracic aortic dissection extending to the abdominal aorta. It appears that ascending aorta might also be involved. As per radiologist report, celiac, SMA, left renal and iliac arteries appear to be patent. Aorta is not aneurysmal. Review of Systems - Review of Systems Systems not reviewed;Unavailable: Altered Mental Status (Review of systems is impossible to obtain due to patient's altered mental status) Past Patient History - Past Medical History & Family History Past Medical History?: Yes - Past Social History Smoking Status: Heavy Smoker > 10 Cigarettes Daily (Patient is a heavy smoker per his partner's report) Drugs: Cannabis, Cocaine (Patient's partner reports that patient is NOT a habitual cocaine user) - CARDIAC Hx Cardiac Disorders: Yes Hx Hypertension: Yes Other/Comment: CABG 2 wks ago - PULMONARY Hx Respiratory Disorders: No Other/Comment: smoker - NEUROLOGICAL Hx Neurological Disorder: No Other/Comment: headaches - HEENT Hx HEENT Problems: No - RENAL Hx Chronic Kidney Disease: No - ENDOCRINE/METABOLIC Hx Endocrine Disorders: No - HEMATOLOGICAL/ONCOLOGICAL Hx Blood Disorders: No - INTEGUMENTARY Hx Dermatological Problems: No - MUSCULOSKELETAL/RHEUMATOLOGICAL Hx Musculoskeletal Disorders: No Hx Falls: No - GASTROINTESTINAL Hx Gastrointestinal Disorders: No Other/Comment: kidney stones - GENITOURINARY/GYNECOLOGICAL Hx Genitourinary Disorders: No - PSYCHIATRIC Hx Psychophysiologic Disorder: No Hx Substance Use: No - SURGICAL HISTORY Hx Surgeries: Yes (cabg 2 wks ago) Hx Coronary Artery Bypass Graft: Yes (about 2 weeks ago) - ANESTHESIA Hx Anesthesia: Yes Hx Anesthesia Reactions: No Hx Malignant Hyperthermia: No Meds Allergies/Adverse Reactions: Allergies Allergy/AdvReac Type Severity Reaction Status Date / Time heparin Allergy HIT- Verified 10/11/16 20:26 Bleeding - Medications Medications: Current Medications Acetaminophen (Tylenol 325mg Tab) 650 mg PO Q6 PRN PRN Reason: Fever >100.4 F Metronidazole (Flagyl 500mg/100ml Ns) 100 mls @ 100 mls/hr IVPB Q8 [facility] Last Admin: 10/15/16 17:02 Dose: 100 mls/hr Pantoprazole Sodium 40 mg/ (Sodium Chloride) 100 mls @ 20 mls/hr IVPB Q5H RUTHY PRN Reason: 8 MG/HR Last Admin: 10/15/16 15:56 Dose: 20 mls/hr Meropenem 500 mg/ Sodium (Chloride) 100 mls @ 100 mls/hr IVPB Q12 [facility] Last Admin: 10/15/16 20:59 Dose: 100 mls/hr Vancomycin HCl 750 mg/ Sodium (Chloride) 250 mls @ 166.667 mls/hr IVPB QOTHERDAY [facility] Micafungin Sodium 100 mg/ (Sodium Chloride) 100 mls @ 100 mls/hr IVPB DAILY [facility] Last Admin: 10/15/16 15:54 Dose: 100 mls/hr Labetalol HCl (Trandate) 20 mg IVP Q4 PRN PRN Reason: Systolic Blood Pressure Last Admin: 10/15/16 17:31 Dose: 20 mg Morphine Sulfate (Morphine) 4 mg IVP Q4 PRN PRN Reason: Pain, severe (8-10) Last Admin: 10/15/16 17:00 Dose: 4 mg Ondansetron HCl (Zofran Inj) 4 mg IVP Q6 PRN PRN Reason: Nausea/Vomiting Physical Exam - Constitutional Appears: Toxic, Chronically Ill - Head Exam Head Exam: ATRAUMATIC - Eye Exam Eye Exam: Scleral icterus Pupil Exam: PERRL - ENT Exam ENT Exam: Mucous Membranes Moist - Neck Exam Neck exam: Positive for: Normal Inspection - Respiratory Exam Respiratory Exam: Decreased Breath Sounds. absent: Accessory Muscle Use, Respiratory Distress - Cardiovascular Exam Cardiovascular Exam: REGULAR RHYTHM, RRR. absent: Tachycardia, JVD - GI/Abdominal Exam GI & Abdominal Exam: Distended, Hypoactive Bowel Sounds, Soft. absent: Rigid - Exam Exam: Scrotal Swelling - Extremities Exam Extremities exam: Positive for: normal inspection (both feet are warm with no clinical signs of significant ischemia) - Neurological Exam Neurological exam: Altered - Skin Skin Exam: Warm Results - Vital Signs Recent Vital Signs: Last Vital Signs Temp 99.9 F H 10/15/16 20:00 Pulse 75 10/15/16 20:00 Resp 38 H 10/15/16 20:00 BP 143/67 10/15/16 20:00 Pulse Ox 97 10/15/16 20:00 - Labs Result Diagrams: 10/15/16 04:35 10/15/16 04:20 Labs: Laboratory Results - last 24 hr 10/15/16 10/15/16 10/15/16 04:20 04:20 04:20 WBC RBC Hgb Hct MCV MCH MCHC RDW Plt Count MPV Neut % (Auto) Lymph % (Auto) [place] % (Auto) Eos % (Auto) Baso % (Auto) Neut # Lymph # [place] # Eos # Baso # PT 37.2 H D INR 3.2 H APTT 72.0 H D pCO2 pO2 HCO3 ABG pH ABG Total CO2 ABG O2 Saturation ABG O2 Content ABG Base Excess ABG Hemoglobin ABG Carboxyhemoglobin POC ABG HHb (Measured) ABG Methemoglobin ABG O2 Capacity Uqirino Test A-a O2 Difference Hgb O2 Saturation Vent Mode FiO2 Sodium 141 Potassium 5.6 H Chloride 102 Carbon Dioxide 21 L Anion Gap 24 H BUN 100 H* D Creatinine 7.9 H* D Est GFR ( Amer) 9 Est GFR (Non-Af Amer) 7 Random Glucose 125 H Lactic Acid Calcium 8.0 L Total Bilirubin 6.9 H AST 128 H D ALT 92 H Alkaline Phosphatase 127 H Total Protein 6.7 Albumin 2.8 L Globulin 4.0 H Albumin/Globulin Ratio 0.7 L Procalcitonin 43.44 H HIV 1&2 Antibody Screen 10/15/16 10/15/16 10/15/16 04:20 04:35 05:50 WBC 21.7 H RBC 3.30 L Hgb 9.2 L Hct 29.0 L MCV 87.8 MCH 28.0 MCHC 31.9 L RDW 16.8 H Plt Count 130 MPV 11.5 Neut % (Auto) 81.4 H Lymph % (Auto) 12.1 L [place] % (Auto) 6.0 Eos % (Auto) 0.3 Baso % (Auto) 0.2 Neut # 17.6 H Lymph # 2.6 [place] # 1.3 H Eos # 0.1 Baso # 0.1 PT INR APTT pCO2 39 pO2 96 HCO3 24.0 ABG pH 7.39 ABG Total CO2 24.8 ABG O2 Saturation 99.3 H ABG O2 Content 13.1 L ABG Base Excess -1.2 ABG Hemoglobin 9.6 L ABG Carboxyhemoglobin 1.7 H POC ABG HHb (Measured) 0.7 ABG Methemoglobin 1.9 ABG O2 Capacity 13.2 L Quirino Test Yes A-a O2 Difference 212.0 Hgb O2 Saturation 95.7 Vent Mode 50% vm FiO2 50.0 Sodium Potassium Chloride Carbon Dioxide Anion Gap BUN Creatinine Est GFR ( Amer) Est GFR (Non-Af Amer) Random Glucose Lactic Acid 2.6 H Calcium Total Bilirubin AST ALT Alkaline Phosphatase Total Protein Albumin Globulin Albumin/Globulin Ratio Procalcitonin HIV 1&2 Antibody Screen 10/15/16 14:31 WBC RBC Hgb Hct MCV MCH MCHC RDW Plt Count MPV Neut % (Auto) Lymph % (Auto) [place] % (Auto) Eos % (Auto) Baso % (Auto) Neut # Lymph # [place] # Eos # Baso # PT INR APTT pCO2 pO2 HCO3 ABG pH ABG Total CO2 ABG O2 Saturation ABG O2 Content ABG Base Excess ABG Hemoglobin ABG Carboxyhemoglobin POC ABG HHb (Measured) ABG Methemoglobin ABG O2 Capacity Quirino Test A-a O2 Difference Hgb O2 Saturation Vent Mode FiO2 Sodium Potassium Chloride Carbon Dioxide Anion Gap BUN Creatinine Est GFR ( Amer) Est GFR (Non-Af Amer) Random Glucose Lactic Acid Calcium Total Bilirubin AST ALT Alkaline Phosphatase Total Protein Albumin Globulin Albumin/Globulin Ratio Procalcitonin HIV 1&2 Antibody Screen Negative Assessment & Plan - Assessment and Plan (Free Text) Assessment: Patient admitted with acute abdomen and extensive bowel ischemia. He has remained critically ill in the ICU with clinical picture consistent with abdominal sepsis that has led to multiple organ failure. Patient was found to have thoraco-abdominal aortic dissection. Apparently, patient was recently treated for aortic arch dissection and quite possibly suffered an extension of his dissection distally especially given the fact that he was severely hypertensive at the time with SBP over 200 mmHg. At present patient remains critically ill and there is no role for emergent vascular intervention tonight. Continue supportive treatment. Determine overall plan and direction of care. Consider transfer to a higher level of care institution and involvement CT surgeon. Will re-examine patient tomorrow.
--- NOTE | 2016-10-15 23:16 | CT ---
EXAM: CT Abdomen and Pelvis Without Intravenous Contrast CLINICAL HISTORY: 51 years old, male; Signs and symptoms; Other: R/O ischemic bowel; Prior surgery; Surgery date: 3-7 days post-operative; Additional info: R/O ischemic bowel. Sent CT abd/pel from earlier today , with report TECHNIQUE: Axial computed tomography images of the abdomen and pelvis without intravenous contrast. This CT exam was performed using one or more of the following dose reduction techniques: automated exposure control, adjustment of the mA and/or kV according to patient size, and/or use of iterative reconstruction technique. Coronal and sagittal reformatted images were created and reviewed. COMPARISON: CT - ANGIO ABDOMEN PELVIS W/CONT 10/15/2016 2:52:43 PM FINDINGS: Lower thorax: There are small to moderate bilateral pleural effusions with some associated atelectasis in the visualized lower lung zones. Additional airspace opacity in the lingula and both lower lobes may represent atelectasis or infiltrate. The heart as visualized appears moderately enlarged. Small pericardial effusion measuring 8 mm on series 3, image 8. There is an esophagogastric tube which terminates at the mid stomach. There is some oral contrast within the esophagus suggesting reflux or vomiting. ABDOMEN: Liver: There are no focal liver lesions present. Gallbladder and bile ducts: The gallbladder is normal. No calcified stones. No ductal dilation. Pancreas: The pancreas is normal. No ductal dilation. Spleen: The spleen is normal. Adrenals: The adrenal glands are normal. Kidneys and ureters: Kidneys are unremarkable aside from a small 1.4 CM isodense lesion at the right midpole. This is incompletely characterized. There is no evidence of hydronephrosis. Stomach and bowel: There is diffuse fatty infiltration involving the wall of the colon. This is nonspecific but can be seen in long-standing inflammatory bowel disease. Please correlate clinically. There are diffusely fluid-filled small bowel loops, some of which appear mildly distended. This could represent ileus or perhaps early or partial mild small bowel obstruction. Evaluation for bowel ischemia is rather limited without IV contrast. The stomach is normal. Appendix: No findings to suggest acute appendicitis. PELVIS: Bladder: Bladder is decompressed around a Taylor catheter. No stones. Reproductive: Unremarkable as visualized. ABDOMEN and PELVIS: Intraperitoneal space: There is no free intraperitoneal air. No significant fluid collection. Bones/joints: There are sternal wires consistent with previous sternotomy incision. There are mild degenerative changes present. No acute fracture. No dislocation. Soft tissues: There is a small amount of fluid in both paracolic gutters, abnormal although nonspecific. There is diffuse anasarca. There are bilateral fat-containing inguinal hernias. Surgical skin stables are noted running craniocaudally in the anterior abdomen midline both above and below the umbilicus. Vasculature: There is a right common femoral line which terminates in the right external iliac vein. The aorta is normal. No abdominal aortic aneurysm. Lymph nodes: There is no evidence of lymphadenopathy. IMPRESSION: 1. There are small to moderate bilateral pleural effusions with some associated atelectasis in the visualized lower lung zones. 2. Additional airspace opacity in the lingula and both lower lobes may represent atelectasis or infiltrate. 3. The heart as visualized appears moderately enlarged. 4. Small pericardial effusion measuring 8 mm on series 3, image 8. 5. Kidneys are unremarkable aside from a small 1.4 CM isodense lesion at the right midpole. This is incompletely characterized. 6. There is diffuse fatty infiltration involving the wall of the colon. This is nonspecific but can be seen in long-standing inflammatory bowel disease. Please correlate clinically. 7. There are diffusely fluid-filled small bowel loops, some of which appear mildly distended. This could represent ileus or perhaps early or partial mild small bowel obstruction. Evaluation for bowel ischemia is rather limited without IV contrast. 8. There is a small amount of fluid in both paracolic gutters, abnormal although nonspecific. There is diffuse anasarca.
--- NOTE | 2016-10-15 23:44 | CT ---
EXAM: CT Angiography Chest With Intravenous Contrast CT Angiography Abdomen and Pelvis With Intravenous Contrast CLINICAL HISTORY: 51 years old, male; Signs and symptoms; Other: R/O disection; Other: Pain; Prior surgery; Surgery date: <1 month; Surgery type: Cabg from august 2016. Lap on 10-06-2016; Additional info: R/O dissection TECHNIQUE: Axial computed tomographic angiography images of the chest, abdomen and pelvis with intravenous contrast using CT angiography protocol. This CT exam was performed using one or more of the following dose reduction techniques: automated exposure control, adjustment of the mA and/or kV according to patient size, and/or use of iterative reconstruction technique. MIP reconstructed images were created and reviewed. Coronal and sagittal reformatted images were created and reviewed. CONTRAST: 90 mL of VISIPAQUE 320 administered intravenously. COMPARISON: No relevant prior studies available. FINDINGS: VASCULATURE: Aorta: There is a type A aortic dissection which appears to arise approximately at the level of the right brachiocephalic artery takeoff. This extends into the right brachiocephalic artery and questionably into the base of the left subclavian artery. Additionally, dissection extends into the descending thoracic aorta as well as the upper abdominal aorta. This appears to resolve approximately at the level of the celiac trunk. Pulmonary arteries: Unremarkable as visualized. No pulmonary embolism is identified. Great vessels of aortic arch: The brachiocephalic artery, right subclavian artery, right common carotid artery, left common carotid artery, left subclavian artery, celiac trunk, superior mesenteric artery, inferior mesenteric artery appear adequately perfused. There is a concern for possible thrombus within the right common iliac artery and extending into the right external iliac artery. This appears resolved by the level of the common femoral artery. Celiac trunk and mesenteric arteries: See above. Renal arteries: No acute findings. No occlusion or significant stenosis. Iliac arteries: See above. Inferior vena cava: There is reflux of contrast into the IVC and hepatic vein suggesting a degree of right heart failure. CHEST: Lungs: There are multifocal patchy opacities throughout both lungs with a mid upper lung zone predominance. These do demonstrate air bronchograms are most compatible to multifocal pneumonia. Small bilateral pleural effusions with associated bibasilar compressive atelectasis. Pleural space: See above. Heart: Small pericardial effusion measuring 11 mm on series 5, image 128. The heart is moderately enlarged. Thyroid: Thyroid is normal in size and position. The ABDOMEN: Liver: There are no focal liver lesions present. Gallbladder and bile ducts: The gallbladder is normal. No calcified stones. No ductal dilation. Pancreas: The pancreas is normal. No ductal dilation. Spleen: The spleen is normal. Adrenals: The adrenal glands are normal. Kidneys and ureters: Kidneys are unremarkable aside from an isodense lesion at the right midpole measuring 1.4 CM. This is incompletely characterized however is concerning for possible solid lesion. If indicated followup can be obtained. There is no evidence of hydronephrosis. Stomach and bowel: Diffusely fluid-filled small bowel loops without definite obstruction. Previously seen bowel pneumatosis is no longer identified. There is diffuse fatty infiltration involving the wall of the colon. This is nonspecific but can be seen in long-standing inflammatory bowel disease. The stomach is normal. Appendix: No findings to suggest acute appendicitis. PELVIS: Bladder: Bladder is decompressed around a Taylor catheter. Reproductive: The prostate gland and seminal vesicles are normal. CHEST, ABDOMEN and PELVIS: Intraperitoneal space: There appears to have been prior repair at the level of the aortic root. There is mild ascites in both paracolic gutters. There is diffuse anasarca. Bones/joints: There are sternal wires consistent with previous sternotomy incision. There are mild degenerative changes present. No acute fracture. No dislocation. Soft tissues: There are bilateral fat-containing inguinal hernias. Lymph nodes: There is no axillary adenopathy. No mediastinal or hilar adenopathy. There is no evidence of lymphadenopathy. Tubes, lines and devices: An esophagogastric tube is present and terminates in the mid stomach. IMPRESSION: 1. There is a type A aortic dissection which appears to arise approximately at the level of the right brachiocephalic artery takeoff. This extends into the right brachiocephalic artery and questionably into the base of the left subclavian artery. Additionally, dissection extends into the descending thoracic aorta as well as the upper abdominal aorta. This appears to resolve approximately at the level of the celiac trunk. Major thoracic and abdominal aortic branches appear adequately perfused. 2. There is a concern for possible thrombus within the right common iliac artery and extending into the right external iliac artery. This appears resolved by the level of the common femoral artery. 3. There appears to have been prior repair at the level of the aortic root. 4. Small pericardial effusion measuring 11 mm on series 5, image 128. 5. There are multifocal patchy opacities throughout both lungs with a mid upper lung zone predominance. These do demonstrate air bronchograms are most compatible to multifocal pneumonia. 6. Small bilateral pleural effusions with associated bibasilar compressive atelectasis. 7. There is reflux of contrast into the IVC and hepatic vein suggesting a degree of right heart failure. 8. Kidneys are unremarkable aside from an isodense lesion at the right midpole measuring 1.4 CM. This is incompletely characterized however is concerning for possible solid lesion. If indicated followup can be obtained. 9. There is mild ascites in both paracolic gutters. There is diffuse anasarca. 10. Diffusely fluid-filled small bowel loops without definite obstruction. Previously seen bowel pneumatosis is no longer identified. 11. There is diffuse fatty infiltration involving the wall of the colon. This is nonspecific but can be seen in long-standing inflammatory bowel disease. 12. Additional incidental and/or chronic findings as described.
[2016-10-16] MEDS: metroNIDAZOLE 500mg/100ml NS 100 ML IVPB SCH ×3 (01:00→17:13)
[2016-10-16 05:17] LABS: BASO # 0.1 K/uL (0.0-0.2); BASO % 0.3 % (0.0-2.0); EOS % 0.1 % (0.0-4.0); LYMPH # 2.1 K/uL (1.0-4.3); LYMPH % 6.3 % (20.0-40.0); MEAN CELL VOLUME 88.9 fl (80.0-94.0); MEAN CORPUSCULAR HEMOGLOBIN 27.4 pg (27.0-31.0); MEAN CORPUSCULAR HGB CONC 30.8 g/dL (33.0-37.0); MEAN PLATELET VOLUME 10.9 fl (7.2-11.7); MONO % 6.3 % (0.0-10.0); NEUT # 28.2 K/uL (1.8-7.0); NRBC % 5.8 % (0.0-0.0); PLATELET COUNT 194 K/uL (130-400); RBC 3.66 Mil/uL (4.40-5.90); RED CELL DISTRIBUTION WIDTH 17.1 % (11.5-14.5); WHITE BLOOD COUNT 32.4 K/uL (4.8-10.8)
[2016-10-16 05:29] LABS: CALCIUM 8.5 mg/dL (8.4-10.2)
[2016-10-16 05:43] LABS: INR 3.1 (0.9-1.2); PARTIAL THROMBOPLASTIN TIME 57.6 Seconds (25.6-37.1)
[2016-10-16] MEDS ORDERED: Albuterol-Ipratrop 3 mg / 0.5 (3 ml) UD INH STA (05:44)
[2016-10-16] MEDS ORDERED: Albuterol-Ipratrop 3 mg / 0.5 (3 ml) UD INH PRN (05:44)
[2016-10-16] MEDS: Labetalol 5 mg/ml Inj 20ML IVP PRN (06:08)
--- NOTE | 2016-10-16 07:33 | CP.PCM.PN ---
<Kyle Brunson - Last Filed: 10/16/16 07:31> Subjective - Date & Time of Evaluation Date of Evaluation: 10/16/16 Time of Evaluation: 07:31 - Subjective Subjective: General Surgery Progress note. Dr. Sanchez Pt seen and examined at bedside. No acute events overnight. Patient opens his eyes to command. No acute distress. NG tube to suction. Taylor in place. Objective - Vital Signs/Intake and Output Vital Signs (last 24 hours): Temp Pulse Resp BP Pulse Ox 98.8 F 102 H 33 H 164/87 H 97 10/16/16 04:00 10/16/16 06:08 10/16/16 04:00 10/16/16 06:08 10/16/16 04:00 Intake and Output: 10/16/16 10/16/16 06:59 18:59 Intake Total 530 Output Total 2300 Balance -1770 - Medications Medications: Current Medications Acetaminophen (Tylenol 325mg Tab) 650 mg PO Q6 PRN PRN Reason: Fever >100.4 F Albuterol/Ipratropium (Duoneb 3 Mg/0.5 Mg (3 Ml) Ud) 3 ml INH RQ6 PRN PRN Reason: Shortness of Breath Metronidazole (Flagyl 500mg/100ml Ns) 100 mls @ 100 mls/hr IVPB Q8 [facility] Last Admin: 10/16/16 01:00 Dose: Not Given Pantoprazole Sodium 40 mg/ (Sodium Chloride) 100 mls @ 20 mls/hr IVPB Q5H [facility] PRN Reason: 8 MG/HR Last Admin: 10/15/16 15:56 Dose: 20 mls/hr Meropenem 500 mg/ Sodium (Chloride) 100 mls @ 100 mls/hr IVPB Q12 [facility] Last Admin: 10/15/16 20:59 Dose: 100 mls/hr Vancomycin HCl 750 mg/ Sodium (Chloride) 250 mls @ 166.667 mls/hr IVPB QOTHERDAY [facility] Micafungin Sodium 100 mg/ (Sodium Chloride) 100 mls @ 100 mls/hr IVPB DAILY [facility] Last Admin: 10/15/16 15:54 Dose: 100 mls/hr Labetalol HCl (Trandate) 20 mg IVP Q4 PRN PRN Reason: Systolic Blood Pressure Last Admin: 10/16/16 06:08 Dose: 20 mg Morphine Sulfate (Morphine) 4 mg IVP Q4 PRN PRN Reason: Pain, severe (8-10) Last Admin: 10/15/16 17:00 Dose: 4 mg Ondansetron HCl (Zofran Inj) 4 mg IVP Q6 PRN PRN Reason: Nausea/Vomiting - Labs Labs: 10/16/16 04:20 10/16/16 04:20 PT 36.0 Seconds (9.8-13.1) H 10/16/16 04:20 INR 3.1 (0.9-1.2) H 10/16/16 04:20 APTT 57.6 Seconds (25.6-37.1) H D 10/16/16 04:20 - Constitutional Appears: No Acute Distress - Head Exam Head Exam: ATRAUMATIC, NORMAL INSPECTION, NORMOCEPHALIC - Eye Exam Eye Exam: EOMI, PERRL - ENT Exam ENT Exam: Mucous Membranes Moist Additional comments: NG tube in place. 600cc/12hrs of dark red/brown output - Respiratory Exam Additional comments: Tachypnic - GI/Abdominal Exam GI & Abdominal Exam: Distended, Soft. absent: Rigid, Tenderness, Rebound Additional comments: Tender to palpation. Midline incision intact with robby. Skin edges well approximated. - Exam Additional comments: Taylor in place, 150cc/12hrs. - Extremities Exam Extremities Exam: Pedal Edema. absent: Calf Tenderness - Neurological Exam Neurological Exam: Awake Assessment and Plan - Assessment and Plan (Free Text) Assessment: 51M w/Mesenteric Ischemia. S/p Ex lap with examination of entire bowel 7/8. POD10 - CTA with thoracic dissection -No further general surgical intervention at this time -Poor prognosis -Will follow Further recs as per Dr. Daniel Brunson PGY1 surgery pager: [phone] <Calixto Sanchez - Last Filed: 10/16/16 16:13> Subjective - Date & Time of Evaluation Time of Evaluation: 15:00 - Subjective Subjective: Patient was seen and examined at the bedside. Agree with resident's note above. Objective - Vital Signs/Intake and Output Vital Signs (last 24 hours): Temp Pulse Resp BP Pulse Ox 98.6 F 79 24 158/73 H 98 10/16/16 11:25 10/16/16 15:24 10/16/16 15:24 10/16/16 15:24 10/16/16 15:24 Intake and Output: 10/16/16 10/16/16 06:59 18:59 Intake Total 820 180 Output Total 3050 Balance -2230 180 - Medications Medications: Current Medications Acetaminophen (Tylenol 325mg Tab) 650 mg PO Q6 PRN PRN Reason: Fever >100.4 F Albuterol/Ipratropium (Duoneb 3 Mg/0.5 Mg (3 Ml) Ud) 3 ml INH RQ6 PRN PRN Reason: Shortness of Breath Metronidazole (Flagyl 500mg/100ml Ns) 100 mls @ 100 mls/hr IVPB Q8 [facility] Last Admin: 10/16/16 08:44 Dose: 100 mls/hr Pantoprazole Sodium 40 mg/ (Sodium Chloride) 100 mls @ 20 mls/hr IVPB Q5H [facility] PRN Reason: 8 MG/HR Last Admin: 10/16/16 08:45 Dose: 20 mls/hr Meropenem 500 mg/ Sodium (Chloride) 100 mls @ 100 mls/hr IVPB Q12 [facility] Last Admin: 10/16/16 08:44 Dose: 100 mls/hr Vancomycin HCl 750 mg/ Sodium (Chloride) 250 mls @ 166.667 mls/hr IVPB QOTHERDAY [facility] Last Admin: 10/16/16 04:00 Dose: 166.667 mls/hr Micafungin Sodium 100 mg/ (Sodium Chloride) 100 mls @ 100 mls/hr IVPB DAILY [facility] Last Admin: 10/15/16 15:54 Dose: 100 mls/hr Multivitamins/Vitamin C 10 ml/Chromium/Copper/Manganese/Zinc 3 ml/ Amino Acids/ Electrolytes/Dextrose 1,013 mls @ 50 mls/hr IV .[id number] ONE Stop: 10/17/16 11:15 Labetalol HCl (Trandate) 10 mg IVP Q4 [facility] Last Admin: 10/16/16 13:48 Dose: 10 mg Morphine Sulfate (Morphine) 4 mg IVP Q4 PRN PRN Reason: Pain, severe (8-10) Last Admin: 10/15/16 17:00 Dose: 4 mg Ondansetron HCl (Zofran Inj) 4 mg IVP Q6 PRN PRN Reason: Nausea/Vomiting - Labs Labs: 10/16/16 04:20 10/16/16 04:20 PT 36.0 Seconds (9.8-13.1) H 10/16/16 04:20 INR 3.1 (0.9-1.2) H 10/16/16 04:20 APTT 57.6 Seconds (25.6-37.1) H D 10/16/16 04:20 Assessment and Plan - Assessment and Plan (Free Text) Plan: Vascular surgery input appreciated
--- NOTE | 2016-10-16 07:45 | CP.PCM.PN ---
<Kyle Brunson - Last Filed: 10/16/16 07:43> Subjective - Date & Time of Evaluation Date of Evaluation: 10/16/16 Time of Evaluation: 07:43 - Subjective Subjective: Vascular Surgery Progress note. Dr. Armendariz Pt seen and examined at bedside. No acute events overnight. Pt opens eyes to verbal commands. No acute distress. Friend at bedside. NG tube in place. Taylor in place Objective - Vital Signs/Intake and Output Vital Signs (last 24 hours): Temp Pulse Resp BP Pulse Ox 98.8 F 67 31 H 121/58 L 98 10/16/16 04:00 10/16/16 07:00 10/16/16 07:00 10/16/16 07:00 10/16/16 07:00 Intake and Output: 10/16/16 10/16/16 06:59 18:59 Intake Total 820 Output Total 3050 Balance -2230 - Medications Medications: Current Medications Acetaminophen (Tylenol 325mg Tab) 650 mg PO Q6 PRN PRN Reason: Fever >100.4 F Albuterol/Ipratropium (Duoneb 3 Mg/0.5 Mg (3 Ml) Ud) 3 ml INH RQ6 PRN PRN Reason: Shortness of Breath Metronidazole (Flagyl 500mg/100ml Ns) 100 mls @ 100 mls/hr IVPB Q8 [facility] Last Admin: 10/16/16 01:00 Dose: Not Given Pantoprazole Sodium 40 mg/ (Sodium Chloride) 100 mls @ 20 mls/hr IVPB Q5H [facility] PRN Reason: 8 MG/HR Last Admin: 10/15/16 15:56 Dose: 20 mls/hr Meropenem 500 mg/ Sodium (Chloride) 100 mls @ 100 mls/hr IVPB Q12 [facility] Last Admin: 10/15/16 20:59 Dose: 100 mls/hr Vancomycin HCl 750 mg/ Sodium (Chloride) 250 mls @ 166.667 mls/hr IVPB QOTHERDAY [facility] Last Admin: 10/16/16 04:00 Dose: 166.667 mls/hr Micafungin Sodium 100 mg/ (Sodium Chloride) 100 mls @ 100 mls/hr IVPB DAILY [facility] Last Admin: 10/15/16 15:54 Dose: 100 mls/hr Labetalol HCl (Trandate) 20 mg IVP Q4 PRN PRN Reason: Systolic Blood Pressure Last Admin: 10/16/16 06:08 Dose: 20 mg Morphine Sulfate (Morphine) 4 mg IVP Q4 PRN PRN Reason: Pain, severe (8-10) Last Admin: 10/15/16 17:00 Dose: 4 mg Ondansetron HCl (Zofran Inj) 4 mg IVP Q6 PRN PRN Reason: Nausea/Vomiting - Labs Labs: 10/16/16 04:20 10/16/16 04:20 PT 36.0 Seconds (9.8-13.1) H 10/16/16 04:20 INR 3.1 (0.9-1.2) H 10/16/16 04:20 APTT 57.6 Seconds (25.6-37.1) H D 10/16/16 04:20 - Head Exam Head Exam: ATRAUMATIC, NORMAL INSPECTION, NORMOCEPHALIC - Eye Exam Eye Exam: EOMI, PERRL - ENT Exam Additional comments: NG tube in place with 600cc/12hrs of dark red/brown fluid - Respiratory Exam Additional comments: Tachypnic - GI/Abdominal Exam GI & Abdominal Exam: Distended, Tenderness. absent: Firm, Rigid Additional comments: Moderate distention. Midline incision dressing clean, dry and intact. - Extremities Exam Extremities Exam: Pedal Edema - Neurological Exam Neurological Exam: Awake Assessment and Plan - Assessment and Plan (Free Text) Assessment: 51yo M with extensive bowel ischemia, found to have thoraco-abdominal aortic dissection. - Continue supportive treatment - No plans for any acute vascular surgery intervention at this time - Consider transfer to higher level of care w/CT surgeon involvement - Poor prognosis Further recs as per Dr. Marcello Brunson PGY1 surgery pager: [phone] <Lobo Armendariz - Last Filed: 10/16/16 14:25> Objective - Vital Signs/Intake and Output Vital Signs (last 24 hours): Temp Pulse Resp BP Pulse Ox 98.6 F 78 29 H 158/68 H 99 10/16/16 11:25 10/16/16 11:25 10/16/16 11:25 10/16/16 11:25 10/16/16 11:25 Intake and Output: 10/16/16 10/16/16 06:59 18:59 Intake Total 820 180 Output Total 3050 Balance -2230 180 - Medications Medications: Current Medications Acetaminophen (Tylenol 325mg Tab) 650 mg PO Q6 PRN PRN Reason: Fever >100.4 F Albuterol/Ipratropium (Duoneb 3 Mg/0.5 Mg (3 Ml) Ud) 3 ml INH RQ6 PRN PRN Reason: Shortness of Breath Metronidazole (Flagyl 500mg/100ml Ns) 100 mls @ 100 mls/hr IVPB Q8 [facility] Last Admin: 10/16/16 08:44 Dose: 100 mls/hr Pantoprazole Sodium 40 mg/ (Sodium Chloride) 100 mls @ 20 mls/hr IVPB Q5H [facility] PRN Reason: 8 MG/HR Last Admin: 10/16/16 08:45 Dose: 20 mls/hr Meropenem 500 mg/ Sodium (Chloride) 100 mls @ 100 mls/hr IVPB Q12 [facility] Last Admin: 10/16/16 08:44 Dose: 100 mls/hr Vancomycin HCl 750 mg/ Sodium (Chloride) 250 mls @ 166.667 mls/hr IVPB QOTHERDAY [facility] Last Admin: 10/16/16 04:00 Dose: 166.667 mls/hr Micafungin Sodium 100 mg/ (Sodium Chloride) 100 mls @ 100 mls/hr IVPB DAILY [facility] Last Admin: 10/15/16 15:54 Dose: 100 mls/hr Labetalol HCl (Trandate) 10 mg IVP Q4 [facility] Morphine Sulfate (Morphine) 4 mg IVP Q4 PRN PRN Reason: Pain, severe (8-10) Last Admin: 10/15/16 17:00 Dose: 4 mg Ondansetron HCl (Zofran Inj) 4 mg IVP Q6 PRN PRN Reason: Nausea/Vomiting - Labs Labs: 10/16/16 04:20 10/16/16 04:20 PT 36.0 Seconds (9.8-13.1) H 10/16/16 04:20 INR 3.1 (0.9-1.2) H 10/16/16 04:20 APTT 57.6 Seconds (25.6-37.1) H D 10/16/16 04:20 Assessment and Plan - Assessment and Plan (Free Text) Plan: Patient seen and examined last night - re-examined earlier this afternoon. Patient remains critically ill in grave condition. While he remained hemodynamically stable overnight, he still appears septic with multiple organ failure. WBC is coming up and patient is profoundly coagulopathic with question of heparin induced thrombocytopenia which is being investigated. On physical exam abdomen is diffusely tender and distended along with vomiting and bloody NG output. Both lower extremities show no signs of acute limb threatening ischemia with both feet being warm, not mottled with preserved motor function and sensation. There is left femoral pulse while no right femoral pulse can be appreciated. Right foot has clearly audible PT Doppler signal and much weaker DP signal. On CT angiogram right common iliac artery is occluded with reconstitution of the right common femoral artery. This finding might represent chronic event rather than being related to aortic dissection given the fact that patient has been, by report, 3 pack a day smoker for years and there is no obvious dissection to the level of aortic bifurcation. Right lower extremity has not looked acutely severely ischemic to me last night or today and can be observed for now while Type A aortic dissection and bowel ischemia/necrosis situation is being dealt with. Consider transferring patient to [facility] where patient's original Type A dissection repair was done and where he can hopefully benefit from tertiary medical center level of care.
[2016-10-16 07:51] LABS: BANDS 3 % (0-2); LYMPHOCYTE 7 % (20-50); MONOCYTE 6 % (0-10); NEUTROPHIL 84 % (42-75); NUCLEATED RED BLOOD CELL 13 % (0-0); TOTAL CELLS COUNTED 100
[2016-10-16 08:00] LABS: PLATELET ESTIMATE NORMAL (NORMAL)
[2016-10-16 08:01] LABS: POLYCHROMIC SLIGHT
[2016-10-16 08:09] LABS: ANISOCYTOSIS SLIGHT
[2016-10-16] MEDS: Meropenem 500 MG in Sodium Chloride 0.9% 100 ML IVPB SCH ×2 (08:44→21:09)
[2016-10-16] MEDS: Pantoprazole 40 MG in Sodium Chloride 0.9% 100 ML IVPB SCH ×3 (08:45→21:08)
--- NOTE | 2016-10-16 09:11 | CP.PCM.PN ---
Subjective - Date & Time of Evaluation Date of Evaluation: 10/16/16 Time of Evaluation: 09:11 - Subjective Subjective: NO SOB COMFORTABLE ON VMASK O2 SAT ADEQUATE NO SOB NO PULMONARY INTERVENTION FOR NOW WILL CONTINUE TO FOLLOW WITH YOU Objective - Vital Signs/Intake and Output Vital Signs (last 24 hours): Temp Pulse Resp BP Pulse Ox 99 F 69 29 H 116/53 L 97 10/16/16 08:00 10/16/16 08:00 10/16/16 08:00 10/16/16 08:00 10/16/16 08:00 Intake and Output: 10/16/16 10/16/16 06:59 18:59 Intake Total 820 40 Output Total 3050 Balance -2230 40 - Medications Medications: Current Medications Acetaminophen (Tylenol 325mg Tab) 650 mg PO Q6 PRN PRN Reason: Fever >100.4 F Albuterol/Ipratropium (Duoneb 3 Mg/0.5 Mg (3 Ml) Ud) 3 ml INH RQ6 PRN PRN Reason: Shortness of Breath Metronidazole (Flagyl 500mg/100ml Ns) 100 mls @ 100 mls/hr IVPB Q8 [facility] Last Admin: 10/16/16 08:44 Dose: 100 mls/hr Pantoprazole Sodium 40 mg/ (Sodium Chloride) 100 mls @ 20 mls/hr IVPB Q5H [facility] PRN Reason: 8 MG/HR Last Admin: 10/16/16 08:45 Dose: 20 mls/hr Meropenem 500 mg/ Sodium (Chloride) 100 mls @ 100 mls/hr IVPB Q12 [facility] Last Admin: 10/16/16 08:44 Dose: 100 mls/hr Vancomycin HCl 750 mg/ Sodium (Chloride) 250 mls @ 166.667 mls/hr IVPB QOTHERDAY [facility] Last Admin: 10/16/16 04:00 Dose: 166.667 mls/hr Micafungin Sodium 100 mg/ (Sodium Chloride) 100 mls @ 100 mls/hr IVPB DAILY [facility] Last Admin: 10/15/16 15:54 Dose: 100 mls/hr Labetalol HCl (Trandate) 20 mg IVP Q4 PRN PRN Reason: Systolic Blood Pressure Last Admin: 10/16/16 06:08 Dose: 20 mg Morphine Sulfate (Morphine) 4 mg IVP Q4 PRN PRN Reason: Pain, severe (8-10) Last Admin: 10/15/16 17:00 Dose: 4 mg Ondansetron HCl (Zofran Inj) 4 mg IVP Q6 PRN PRN Reason: Nausea/Vomiting - Labs Labs: 10/16/16 04:20 10/16/16 04:20 PT 36.0 Seconds (9.8-13.1) H 10/16/16 04:20 INR 3.1 (0.9-1.2) H 10/16/16 04:20 APTT 57.6 Seconds (25.6-37.1) H D 10/16/16 04:20
--- NOTE | 2016-10-16 09:15 | CP.PCM.PN ---
Subjective - Date & Time of Evaluation Date of Evaluation: 10/16/16 Time of Evaluation: 09:00 - Subjective Subjective: No fever Does not answer verbally to questions however nods to say yes follows simple commands on Venti mask and saturating well some blood in NGT tube moves extremities Objective - Vital Signs/Intake and Output Vital Signs (last 24 hours): Temp Pulse Resp BP Pulse Ox 99 F 69 29 H 116/53 L 97 10/16/16 08:00 10/16/16 08:00 10/16/16 08:00 10/16/16 08:00 10/16/16 08:00 Intake and Output: 10/16/16 10/16/16 06:59 18:59 Intake Total 820 40 Output Total 3050 Balance -2230 40 - Medications Medications: Current Medications Acetaminophen (Tylenol 325mg Tab) 650 mg PO Q6 PRN PRN Reason: Fever >100.4 F Albuterol/Ipratropium (Duoneb 3 Mg/0.5 Mg (3 Ml) Ud) 3 ml INH RQ6 PRN PRN Reason: Shortness of Breath Metronidazole (Flagyl 500mg/100ml Ns) 100 mls @ 100 mls/hr IVPB Q8 [facility] Last Admin: 10/16/16 08:44 Dose: 100 mls/hr Pantoprazole Sodium 40 mg/ (Sodium Chloride) 100 mls @ 20 mls/hr IVPB Q5H [facility] PRN Reason: 8 MG/HR Last Admin: 10/16/16 08:45 Dose: 20 mls/hr Meropenem 500 mg/ Sodium (Chloride) 100 mls @ 100 mls/hr IVPB Q12 [facility] Last Admin: 10/16/16 08:44 Dose: 100 mls/hr Vancomycin HCl 750 mg/ Sodium (Chloride) 250 mls @ 166.667 mls/hr IVPB QOTHERDAY [facility] Last Admin: 10/16/16 04:00 Dose: 166.667 mls/hr Micafungin Sodium 100 mg/ (Sodium Chloride) 100 mls @ 100 mls/hr IVPB DAILY [facility] Last Admin: 10/15/16 15:54 Dose: 100 mls/hr Labetalol HCl (Trandate) 20 mg IVP Q4 PRN PRN Reason: Systolic Blood Pressure Last Admin: 10/16/16 06:08 Dose: 20 mg Morphine Sulfate (Morphine) 4 mg IVP Q4 PRN PRN Reason: Pain, severe (8-10) Last Admin: 10/15/16 17:00 Dose: 4 mg Ondansetron HCl (Zofran Inj) 4 mg IVP Q6 PRN PRN Reason: Nausea/Vomiting - Labs Labs: 10/16/16 04:20 10/16/16 04:20 PT 36.0 Seconds (9.8-13.1) H 10/16/16 04:20 INR 3.1 (0.9-1.2) H 10/16/16 04:20 APTT 57.6 Seconds (25.6-37.1) H D 10/16/16 04:20 - Constitutional Appears: Chronically Ill - Head Exam Head Exam: NORMAL INSPECTION, NORMOCEPHALIC - Eye Exam Eye Exam: EOMI, Normal appearance Pupil Exam: NORMAL ACCOMODATION - ENT Exam ENT Exam: Mucous Membranes Dry, Normal External Ear Exam - Neck Exam Neck Exam: Full ROM. absent: Meningismus - Respiratory Exam Respiratory Exam: Rales, Rhonchi Additional comments: On Venti Mask - Cardiovascular Exam Cardiovascular Exam: REGULAR RHYTHM, +S1, +S2 - GI/Abdominal Exam GI & Abdominal Exam: Distended, Tenderness - Extremities Exam Additional comments: moves all extremities - Neurological Exam Neurological Exam: Awake Additional comments: lethargic follows simple commands no verbal output but seem to ub=nderstand simple questions - Psychiatric Exam Psychiatric exam: Flat Affect - Skin Skin Exam: Dry, Pallor Assessment and Plan (1) Acute diffuse ischemia of intestine Status: Acute (2) Septic shock Status: Acute (3) Acute renal failure Status: Acute (4) Shock liver Status: Acute (5) CAD (coronary artery disease) Status: Acute (6) A-fib Status: Acute (7) Thrombocytopenia Status: Acute - Assessment and Plan (Free Text) Assessment: 51 y/o male with PMH Type A aortic aneurysm repair [address] [facility] by Dr. Wheat , back pain, HTN,cocaine abuse history ( as per friends) presented with severe sharp abdominal pain associated with nausea and emesis for two days. In ER, pt found to have intractable abdominal pain, disproportionate to exam. CT showed evidence of mesenteric ischemia/infarction. Seen by surgery in ER and taken to OR for emergent exploratory laparatomy by Dr. Sanchez that showed ischemic small bowel and right colon. No surgical intervention could be done, the patient was closed up and transferred to ICU for medical care. He was intubated for airway support was placed on on Fentanyl drip for sedation and pain control . He was weaned off and extubated and at present on Venturi mask afebrile, drowsy , off Fentanyl drip , moaning ,following simple commands. CTA abdomen showed ; 1. Apparent resolution of pneumatosis intestinalis, central mesenteric venous gas,superior mesenteric venous gas, as well as portal venous gas. Small and large bowel are limited evaluation due to lack of oral contrast administration this patient. Enteric colitis is not completely excluded. Pancolitis is a possibility as discussed above. No free intrarenal gas. Limited abdominal and pelvic ascites. 2. Nodular changes related to the right kidney are stable and remain potentially suspicious for solid nodule. 3. 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 At and below the level of the celiac artery origin, artifacts obscure evaluation of the abdominal aorta. Consider follow-up chest and abdomen CT with oral and intravenous contrast for greater characterization. Poor Prognosis. Family in [place] notified of pt's condition 1.Septic shock secondary to ischemic bowel, with Multi-organ Failure extubated on Venti mask saturating 98% , afebrile off Fentanyl drip. on Morphine IV for pain control off levophed drip and with stable BP Critically ill with very poor prognosis General surgery, Vascular Sx, GI, pulmonary, ID on consult Continue Micafungin , Flagyl and Vancomycin after HD . Off meropenem 2. Recent Type A aortic aneurysm repair at [facility] CTA abd and pelvis showed Thoracoabdominal aortic dissection involving distal thoracic segment and proximal aortic segment. [facility] surgeon informed vascular surgery consulted- discussed case with Dr Armendariz- rec to transfer pt back to [facility] for higher level of care. I contacted Dr Wheat -( he was doing surgery) - I spoke with his assistant vice president and left message of need for transfer CTA of Chest 1. There is a type A aortic dissection which appears to arise approximately at the level of the right brachiocephalic artery takeoff. This extends into the right brachiocephalic artery and questionably into the base of the left subclavian artery. Additionally, dissection extends into the descending thoracic aorta as well as the upper abdominal aorta. This appears to resolve approximately at the level of the celiac trunk. Major thoracic and abdominal aortic branches appear adequately perfused. 2. There is a concern for possible thrombus within the right common iliac artery and extending into the right external iliac artery. This appears resolved by the level of the common femoral artery. 3. There appears to have been prior repair at the level of the aortic root. 4. Small pericardial effusion measuring 11 mm on series 5, image 128. 5. There are multifocal patchy opacities throughout both lungs with a mid upper lung zone predominance. These do demonstrate air bronchograms are most compatible to multifocal pneumonia. 6. Small bilateral pleural effusions with associated bibasilar compressive atelectasis. 7. There is reflux of contrast into the IVC and hepatic vein suggesting a degree of right heart failure. 8. Kidneys are unremarkable aside from an isodense lesion at the right midpole measuring 1.4 CM. This is incompletely characterized however is concerning for possible solid lesion. If indicated followup can be obtained. 9. There is mild ascites in both paracolic gutters. There is diffuse anasarca. 10. Diffusely fluid-filled small bowel loops without definite obstruction. Previously seen bowel pneumatosis is no longer identified. 11. There is diffuse fatty infiltration involving the wall of the colon. This is nonspecific but can be seen in long-standing inflammatory bowel disease. 3. Ischemic/Necrotic bowel Most likely secondary to hypoperfusion due to aortic dissection s/p exploratory laparatomy by general surgery showing necrotic small bowel and right colon No surgical intervention possible at this time Supportive care CTA abd and pelvis read as pancolitis. Surgery informed and following Heparin was stopped due to thrombocytopenia and possibility of HIT. Argatroban hepatically dosed was started and stopped due to bleeding from NGT and ETT Poor prognosis Will place PICC line and start TPN feeding. Due to coagulopathy patient is high risk for PICC line placement 4.Elevated transaminases likely Shock Liver improving NGT in place with bloody secretions 5. GOPI likely due to decrease perfusion Pt started on Hemodialysis on 10/08 Nephrology consult - Dr Claudia Law HD cath placed to right groin cont HD 6. CAD s/p CABG 2 weeks ago-- clarified with surgeon patient did not have CABG Cardio consult : Dr Putnam Echo showed normal EF 7.Paroxysmal A Fib with RVR episode resolved, now back in SR received Amiodarone, off drip Cardio consulted 8. Thrombocytopenia-- improving Heparin discontinued HIT antibody:weakly + Bloody secretions noted from NGT and ETT. Held Argatroban 9. Acute blood loss anemia/ UGI bleed With bloody output from NGTs on protonix drip monitor for now GI on consult 10. Coagulopathy monitor 11. Hypertension started labetalol IV 11.DVT prophylaxis SCD
--- NOTE | 2016-10-16 09:36 | CP.PCM.PN ---
Objective - Vital Signs/Intake and Output Vital Signs (last 24 hours): Temp Pulse Resp BP Pulse Ox 99 F 69 29 H 116/53 L 97 10/16/16 08:00 10/16/16 08:00 10/16/16 08:00 10/16/16 08:00 10/16/16 08:00 Intake and Output: 10/16/16 10/16/16 06:59 18:59 Intake Total 820 40 Output Total 3050 Balance -2230 40 - Medications Medications: Current Medications Acetaminophen (Tylenol 325mg Tab) 650 mg PO Q6 PRN PRN Reason: Fever >100.4 F Albuterol/Ipratropium (Duoneb 3 Mg/0.5 Mg (3 Ml) Ud) 3 ml INH RQ6 PRN PRN Reason: Shortness of Breath Metronidazole (Flagyl 500mg/100ml Ns) 100 mls @ 100 mls/hr IVPB Q8 [facility] Last Admin: 10/16/16 08:44 Dose: 100 mls/hr Pantoprazole Sodium 40 mg/ (Sodium Chloride) 100 mls @ 20 mls/hr IVPB Q5H RUTHY PRN Reason: 8 MG/HR Last Admin: 10/16/16 08:45 Dose: 20 mls/hr Meropenem 500 mg/ Sodium (Chloride) 100 mls @ 100 mls/hr IVPB Q12 [facility] Last Admin: 10/16/16 08:44 Dose: 100 mls/hr Vancomycin HCl 750 mg/ Sodium (Chloride) 250 mls @ 166.667 mls/hr IVPB QOTHERDAY [facility] Last Admin: 10/16/16 04:00 Dose: 166.667 mls/hr Micafungin Sodium 100 mg/ (Sodium Chloride) 100 mls @ 100 mls/hr IVPB DAILY [facility] Last Admin: 10/15/16 15:54 Dose: 100 mls/hr Labetalol HCl (Trandate) 20 mg IVP Q4 PRN PRN Reason: Systolic Blood Pressure Last Admin: 10/16/16 06:08 Dose: 20 mg Morphine Sulfate (Morphine) 4 mg IVP Q4 PRN PRN Reason: Pain, severe (8-10) Last Admin: 10/15/16 17:00 Dose: 4 mg Ondansetron HCl (Zofran Inj) 4 mg IVP Q6 PRN PRN Reason: Nausea/Vomiting - Labs Labs: 10/16/16 04:20 10/16/16 04:20 PT 36.0 Seconds (9.8-13.1) H 10/16/16 04:20 INR 3.1 (0.9-1.2) H 10/16/16 04:20 APTT 57.6 Seconds (25.6-37.1) H D 10/16/16 04:20 Assessment and Plan - Assessment and Plan (Free Text) Assessment: Assessment: 51 YO M w/ PMH Type A aortic aneursym repair 2 weeks ago at [facility] by Dr. Wheat, cocaine abuse had presented to the ER for abdominal pain w/ nausea and emesis. Pt was found to have evidence of mesenteric ischemia/ infarction on CT and a emergent exploratory laprotamy was done and they were unable to resect the bowl because it extended from ligament of teres to the transverse colon. 1) Septic Shock, secondary to ischemic bowl - Spoke with Dr. Noguera at the [facility]. They are willing to accept the patient of the patient for bowl resection and possible intestinal transplant, if the patient is safe for transfer. Will speak to [facility] regarding his thoracoabdominal aortic dissection, to see if he is a candidate for repair. 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 - WBC has recently been trending up to 32.4. Patient has remained afebrile. - Lactic acid has trended down to 2.6. Procalcitonin has trended down to 43 - Patient has been extubated and is currently on a venti mask saturating at 98%. - Patient is off of pressers and blood pressure remains stable - Argatroban was held due to GI bleed noticed via NG tube. Today PTT is 36. Continue serial PTT - Pain controlled with Morphine PRN. - Cont w/ Cefapime, Microfungin, Flagyl, and Vancomycin 2)Recent aortic aneurysm rupture repair - Will be sending imaging of the patient to [facility] today for Dr. Wheat to assess further intervention. - Most recent CT showed thracoabdominal aortic dissection. - Hemodynamically stable 3) Mesentric ischemia - Most likely secondary to thracoabdominal aortic dissection. - PICC line will be placed today after the 2 units of Fresh frozen plasma - Patient will be placed on TPN 3) Hypertension -Labetolol 10 mg Q4. - Monitor BP 4.) Elevated liver enzymes most likely secondary to mesenteric ischemia - AST:181, ALT:109:-> trending down - Total bilirubin: 6.9, Seems to be trending up - GI consult appreciated - Continue to monitor 5. Renal failure secondary to decrease perfusion - Receiving HD yesterday, next session is tomorrow - BUN:58, Creatinine:5.3 - Dr. Zavaleta on consult 6) A Fib ( Resolved) - Resolved after receiving amiodarone. - Cardio consult appreciated 7) Upper GI Bleed - PTT today was 36 - Blood noted via NG suction - Continue IV protonix - Hold Argatroban. - Continue serial PTT 8) Heparin Induced thrombocytopenia - Avoid all heparin products - Heparin induced platelet antibody is weakly positive - Seratonin Rel assay ordered - Platelet today 194 - Argatorban was given 9) DVT prophylaxis - Avoid heparin b/c of DIC - Hold argatriban b/c of GI bleed. Monitor PTT - SCD
--- NOTE | 2016-10-16 10:24 | OP ---
Surgeons: Dr. Calixto Sanchez Date of Procedure: 10/06/16 Preoperative Diagnosis: Mesenteric ischemia Postoperative Diagnosis: Ischemic entire small bowel and right colon Procedure name and detailed description: exploratory laparotomy, examination of the entire bowel and colon [employer] Laboratory Scientist: Kyle Brunson DO Anesthesia: General endotracheal intubation Estimated blood loss: 5ml Intraoperative findings: ischemic entire small bowel from the ligament of Triet' s and the right colon Specimen: none Brief history: Mr. Fofana is a 51 year old gentleman who presented to the hospital complaining of severe abdominal pain for the duration of the last few days. Of note: pt had aortic arch repair for dissection done approximately 2 weeks ago at [facility] in [facility]. Pt was found to have pneumatosis intestinalis as well as portal venous air and mesenteric venous air on a CT. All the risks and benefits of the procedure were explain to the pt, the pt understood, informed consent was obtained, and pt was was taken to the operating room for above stated procedure. Procedure: Pt was brought into the operating room and placed supine on the operating table. Bilateral flowtron boots were applied to pt's lower extremities. After successful induction anesthesia and successful endotracheal intubation by the anesthesia team, pt abdomen was shaved and prepped with chloroprep and draped in the standard surgical fashion. Prior to the beginning of the procedure, pt received prophylactic antibiotic, and a timeout was called in the room and everyone in the room was in agreement. Using a 10 blade scalpel knife, an approximately 20 cm incision was made in a midline extending 5cm above the umbilicus, going around the umbilicus on the right side and extending another approximate 15 cm below the umbilicus in a longitudinal fashion, dissection was carried down with electrical cautery until fascial layer was was visualized. 2 Aleta clamps were placed on both ends of the fascia, and the entire length of the fascia was opened. At that point in time, a peritoneal layer was encountered and clamped with 2 Aleta clamps. At that point in time, pt 's abdominal cavity was entered. We immediately visualized some ascites and a foul smell. Once the entire length of the incision was opened, I examined the small bowel that appeared to be severely ischemic. I ran the entire small bowel all the way from the ligament of Triet's to the cecum and the ileocecal valve, and I also examined the right colon. Everything appeared to be severely ischemic. At that point in time, I tried to warm up the bowel with hot lap pads and warm saline. However, after 5-10 minutes of warming, the bowel did not appear to pink up at all, so the decision was made to abort the procedure. The small bowel was reduced back into the abdominal cavity, two Daniel clamps were placed on both sides of the fascia, and the fascia was closed with 2 #1 loop PDS : 1 from above, 1 from below, and tied in the middle. Once this was accomplished , skin was closed with robby. Pt was transferred to the stretcher and taken to the recovery room in critical condition. At the end of the procedure, all instruments, clamps, needles, and sponges were correct Dr. Calixto JAFFE
--- NOTE | 2016-10-16 12:06 | CP.PCM.PN ---
Subjective - Date & Time of Evaluation Date of Evaluation: 10/16/16 Time of Evaluation: 12:05 - Subjective Subjective: ID Note- Pt. sen and examined today in ICU. on venti mask. does not answer my questions but awakens and opens his eyes when i call his name. new information as per ICU team pt. had disected abd aortic aneurysm repair 2 weeks ago at [facility] and ap[facility]rently the [facility] might take pt. as a transfer for resection of the necrotic bowels and possibly intestinal transplant. Objective - Vital Signs/Intake and Output Vital Signs (last 24 hours): Temp Pulse Resp BP Pulse Ox 98.6 F 78 29 H 158/68 H 99 10/16/16 11:25 10/16/16 11:25 10/16/16 11:25 10/16/16 11:25 10/16/16 11:25 Intake and Output: 10/16/16 10/16/16 06:59 18:59 Intake Total 820 180 Output Total 3050 Balance -2230 180 - Medications Medications: Current Medications Acetaminophen (Tylenol 325mg Tab) 650 mg PO Q6 PRN PRN Reason: Fever >100.4 F Albuterol/Ipratropium (Duoneb 3 Mg/0.5 Mg (3 Ml) Ud) 3 ml INH RQ6 PRN PRN Reason: Shortness of Breath Metronidazole (Flagyl 500mg/100ml Ns) 100 mls @ 100 mls/hr IVPB Q8 [facility] Last Admin: 10/16/16 08:44 Dose: 100 mls/hr Pantoprazole Sodium 40 mg/ (Sodium Chloride) 100 mls @ 20 mls/hr IVPB Q5H [facility] PRN Reason: 8 MG/HR Last Admin: 10/16/16 08:45 Dose: 20 mls/hr Meropenem 500 mg/ Sodium (Chloride) 100 mls @ 100 mls/hr IVPB Q12 [facility] Last Admin: 10/16/16 08:44 Dose: 100 mls/hr Vancomycin HCl 750 mg/ Sodium (Chloride) 250 mls @ 166.667 mls/hr IVPB QOTHERDAY [facility] Last Admin: 10/16/16 04:00 Dose: 166.667 mls/hr Micafungin Sodium 100 mg/ (Sodium Chloride) 100 mls @ 100 mls/hr IVPB DAILY [facility] Last Admin: 10/15/16 15:54 Dose: 100 mls/hr Labetalol HCl (Trandate) 10 mg IVP Q4 [facility] Morphine Sulfate (Morphine) 4 mg IVP Q4 PRN PRN Reason: Pain, severe (8-10) Last Admin: 10/15/16 17:00 Dose: 4 mg Ondansetron HCl (Zofran Inj) 4 mg IVP Q6 PRN PRN Reason: Nausea/Vomiting - Labs Labs: - Additional Findings Additional findings: - Constitutional Appears: Toxic - Head Exam Head Exam: ATRAUMATIC - ENT Exam Additional comments: NGT- dark output - Respiratory Exam Additional comments: decreased breath sounds at bases no wheezing - Cardiovascular Exam Cardiovascular Exam: RRR, +S1, +S2 - GI/Abdominal Exam Additional comments: slightly less distended , hypoactivve BS midabdominal surgical site clean/ no discharge, no erythema tenderness to palp - Extremities Exam Extremities Exam: 2+ pitting edema b/l LE and upper ext - Neurological Exam Additional comments: awakens when name is called and moans Laboratory Results - last 72 hr 10/11/16 10/14/16 10/14/16 07:01 05:17 05:30 WBC 21.8 H RBC 3.51 L Hgb 9.5 L Hct 30.3 L MCV 86.5 MCH 27.2 MCHC 31.4 L RDW 16.7 H Plt Count 82 L D MPV 11.4 Neut % (Auto) 80.6 H Lymph % (Auto) 11.4 L [place] % (Auto) 6.3 Eos % (Auto) 1.2 Baso % (Auto) 0.5 Neut # 17.6 H Lymph # 2.5 [place] # 1.4 H Eos # 0.3 Baso # 0.1 Neutrophils % (Manual) Band Neutrophils % Lymphocytes % (Manual) Monocytes % (Manual) Nucleated RBC % Platelet Estimate Polychromasia Anisocytosis (manual) PT INR APTT pCO2 44 pO2 118 H HCO3 27.3 ABG pH 7.41 ABG Total CO2 29.3 H ABG O2 Saturation 99.1 H ABG O2 Content 9.9 L ABG Base Excess 3.0 ABG Hemoglobin 7.1 L ABG Carboxyhemoglobin 0.9 POC ABG HHb (Measured) 0.9 ABG Methemoglobin 2.0 ABG O2 Capacity 10.0 L Quirino Test Yes A-a O2 Difference 112.0 Hgb O2 Saturation 96.2 Vent Mode A/c Mechanical Rate 18 FiO2 40.0 Tidal Volume 550 PEEP 5 Pressure Support Sodium Potassium Chloride Carbon Dioxide Anion Gap BUN Creatinine Est GFR ( Amer) Est GFR (Non-Af Amer) Random Glucose Lactic Acid Calcium Total Bilirubin AST ALT Alkaline Phosphatase Total Protein Albumin Globulin Albumin/Globulin Ratio Procalcitonin Heparin-induced Plt Ab Weak positive H HIV 1&2 Antibody Screen Blood Type Antibody Screen BBK History Checked 10/14/16 10/14/16 10/14/16 05:30 10:45 11:01 WBC RBC Hgb Hct MCV MCH MCHC RDW Plt Count MPV Neut % (Auto) Lymph % (Auto) [place] % (Auto) Eos % (Auto) Baso % (Auto) Neut # Lymph # [place] # Eos # Baso # Neutrophils % (Manual) Band Neutrophils % Lymphocytes % (Manual) Monocytes % (Manual) Nucleated RBC % Platelet Estimate Polychromasia Anisocytosis (manual) PT INR APTT pCO2 46 H pO2 160 H HCO3 24.6 ABG pH 7.35 ABG Total CO2 26.8 ABG O2 Saturation 100.0 H ABG O2 Content 13.9 L ABG Base Excess -0.4 ABG Hemoglobin 9.9 L ABG Carboxyhemoglobin 1.6 H POC ABG HHb (Measured) 0.0 ABG Methemoglobin 1.4 ABG O2 Capacity 13.9 L Quirino Test Yes A-a O2 Difference 103.0 Hgb O2 Saturation 97.0 Vent Mode Cpap Mechanical Rate FiO2 45.0 Tidal Volume PEEP 5 Pressure Support 10 Sodium 139 Potassium 4.6 Chloride 99 Carbon Dioxide 26 Anion Gap 19 BUN 68 H Creatinine 6.5 H Est GFR ( Amer) 11 Est GFR (Non-Af Amer) 9 Random Glucose 123 H Lactic Acid Calcium 8.4 Total Bilirubin 5.7 H AST 181 H D ALT 109 H D Alkaline Phosphatase 148 H Total Protein 6.8 Albumin 2.8 L Globulin 4.0 H Albumin/Globulin Ratio 0.7 L Procalcitonin Heparin-induced Plt Ab HIV 1&2 Antibody Screen Blood Type O POSITIVE Antibody Screen Negative BBK History Checked Patient has bt 10/15/16 10/15/16 10/15/16 04:20 04:20 04:20 WBC RBC Hgb Hct MCV MCH MCHC RDW Plt Count MPV Neut % (Auto) Lymph % (Auto) [place] % (Auto) Eos % (Auto) Baso % (Auto) Neut # Lymph # [place] # Eos # Baso # Neutrophils % (Manual) Band Neutrophils % Lymphocytes % (Manual) Monocytes % (Manual) Nucleated RBC % Platelet Estimate Polychromasia Anisocytosis (manual) PT 37.2 H D INR 3.2 H APTT 72.0 H D pCO2 pO2 HCO3 ABG pH ABG Total CO2 ABG O2 Saturation ABG O2 Content ABG Base Excess ABG Hemoglobin ABG Carboxyhemoglobin POC ABG HHb (Measured) ABG Methemoglobin ABG O2 Capacity Quirino Test A-a O2 Difference Hgb O2 Saturation Vent Mode Mechanical Rate FiO2 Tidal Volume PEEP Pressure Support Sodium 141 Potassium 5.6 H Chloride 102 Carbon Dioxide 21 L Anion Gap 24 H BUN 100 H* D Creatinine 7.9 H* D Est GFR ( Amer) 9 Est GFR (Non-Af Amer) 7 Random Glucose 125 H Lactic Acid Calcium 8.0 L Total Bilirubin 6.9 H AST 128 H D ALT 92 H Alkaline Phosphatase 127 H Total Protein 6.7 Albumin 2.8 L Globulin 4.0 H Albumin/Globulin Ratio 0.7 L Procalcitonin 43.44 H Heparin-induced Plt Ab HIV 1&2 Antibody Screen Blood Type Antibody Screen BBK History Checked 10/15/16 10/15/16 10/15/16 04:20 04:35 05:50 WBC 21.7 H RBC 3.30 L Hgb 9.2 L Hct 29.0 L MCV 87.8 MCH 28.0 MCHC 31.9 L RDW 16.8 H Plt Count 130 MPV 11.5 Neut % (Auto) 81.4 H Lymph % (Auto) 12.1 L [place] % (Auto) 6.0 Eos % (Auto) 0.3 Baso % (Auto) 0.2 Neut # 17.6 H Lymph # 2.6 [place] # 1.3 H Eos # 0.1 Baso # 0.1 Neutrophils % (Manual) Band Neutrophils % Lymphocytes % (Manual) Monocytes % (Manual) Nucleated RBC % Platelet Estimate Polychromasia Anisocytosis (manual) PT INR APTT pCO2 39 pO2 96 HCO3 24.0 ABG pH 7.39 ABG Total CO2 24.8 ABG O2 Saturation 99.3 H ABG O2 Content 13.1 L ABG Base Excess -1.2 ABG Hemoglobin 9.6 L ABG Carboxyhemoglobin 1.7 H POC ABG HHb (Measured) 0.7 ABG Methemoglobin 1.9 ABG O2 Capacity 13.2 L Quirino Test Yes A-a O2 Difference 212.0 Hgb O2 Saturation 95.7 Vent Mode 50% vm Mechanical Rate FiO2 50.0 Tidal Volume PEEP Pressure Support Sodium Potassium Chloride Carbon Dioxide Anion Gap BUN Creatinine Est GFR ( Amer) Est GFR (Non-Af Amer) Random Glucose Lactic Acid 2.6 H Calcium Total Bilirubin AST ALT Alkaline Phosphatase Total Protein Albumin Globulin Albumin/Globulin Ratio Procalcitonin Heparin-induced Plt Ab HIV 1&2 Antibody Screen Blood Type Antibody Screen BBK History Checked 10/15/16 10/16/16 10/16/16 14:31 04:20 04:20 WBC 32.4 H RBC 3.66 L Hgb 10.0 L Hct 32.6 L MCV 88.9 MCH 27.4 MCHC 30.8 L RDW 17.1 H Plt Count 194 MPV 10.9 Neut % (Auto) 87.0 H Lymph % (Auto) 6.3 L [place] % (Auto) 6.3 Eos % (Auto) 0.1 Baso % (Auto) 0.3 Neut # 28.2 H Lymph # 2.1 [place] # 2.0 H Eos # 0.0 Baso # 0.1 Neutrophils % (Manual) 84 H Band Neutrophils % 3 H Lymphocytes % (Manual) 7 L Monocytes % (Manual) 6 Nucleated RBC % 13 H Platelet Estimate Normal Polychromasia Slight Anisocytosis (manual) Slight PT 36.0 H INR 3.1 H APTT 57.6 H D pCO2 pO2 HCO3 ABG pH ABG Total CO2 ABG O2 Saturation ABG O2 Content ABG Base Excess ABG Hemoglobin ABG Carboxyhemoglobin POC ABG HHb (Measured) ABG Methemoglobin ABG O2 Capacity Quirino Test A-a O2 Difference Hgb O2 Saturation Vent Mode Mechanical Rate FiO2 Tidal Volume PEEP Pressure Support Sodium Potassium Chloride Carbon Dioxide Anion Gap BUN Creatinine Est GFR ( Amer) Est GFR (Non-Af Amer) Random Glucose Lactic Acid Calcium Total Bilirubin AST ALT Alkaline Phosphatase Total Protein Albumin Globulin Albumin/Globulin Ratio Procalcitonin Heparin-induced Plt Ab HIV 1&2 Antibody Screen Negative Blood Type Antibody Screen BBK History Checked 10/16/16 04:20 WBC RBC Hgb Hct MCV MCH MCHC RDW Plt Count MPV Neut % (Auto) Lymph % (Auto) [place] % (Auto) Eos % (Auto) Baso % (Auto) Neut # Lymph # [place] # Eos # Baso # Neutrophils % (Manual) Band Neutrophils % Lymphocytes % (Manual) Monocytes % (Manual) Nucleated RBC % Platelet Estimate Polychromasia Anisocytosis (manual) PT INR APTT pCO2 pO2 HCO3 ABG pH ABG Total CO2 ABG O2 Saturation ABG O2 Content ABG Base Excess ABG Hemoglobin ABG Carboxyhemoglobin POC ABG HHb (Measured) ABG Methemoglobin ABG O2 Capacity Quirino Test A-a O2 Difference Hgb O2 Saturation Vent Mode Mechanical Rate FiO2 Tidal Volume PEEP Pressure Support Sodium 140 Potassium 5.0 Chloride 99 Carbon Dioxide 19 L Anion Gap 27 H BUN 58 H Creatinine 5.3 H Est GFR ( Amer) 14 Est GFR (Non-Af Amer) 12 Random Glucose 80 Lactic Acid Calcium 8.5 Total Bilirubin AST ALT Alkaline Phosphatase Total Protein Albumin Globulin Albumin/Globulin Ratio Procalcitonin Heparin-induced Plt Ab HIV 1&2 Antibody Screen Blood Type Antibody Screen BBK History Checked Microbiology 10/13/16 14:10 Blood-Venous Blood Culture - Preliminary NO GROWTH AFTER 3 DAYS 10/13/16 14:10 Blood-Venous Blood Culture - Preliminary NO GROWTH AFTER 3 DAYS 10/13/16 15:35 Urine,Taylor Urine Culture - Final No Growth (<1,000 CFU/ML) 10/13/16 15:35 Trachasp Gram Stain - Final 10/13/16 15:35 Trachasp Sputum Culture - Final Yeast Species 10/06/16 11:10 Nose MRSA Culture (Admit) - Final MRSA NOT DETECTED Study Comment : Sex / Age : M / 51Y Creator : COREY FARAH Dictator : Eyeglass Maker : Event Executive : COREY FARAH Approver2 : Report Date : 10/15/2016 23:16:00 My Comment : [facility] Division of Radiology [address] [facility] [id number] Tel. no. Patient Name: ELADIA BARR Pt. Address: [address] [place] [address] Rec #: [id number] [place] [address]: Mayco HUYNH,Raven Pt CELL Order Location: .ICU/ CCU : 1965 Male Age: 51 Order #: [id number] Reason for exam: r/o ischemic bowel CT Scan ABD PELVIS PO CONTRAST ONLY Exam Date: 10/15/16 This imaging exam was performed at [facility] EXAM: CT Abdomen and Pelvis Without Intravenous Contrast CLINICAL HISTORY: 51 years old, male; Signs and symptoms; Other: R/O ischemic bowel; Prior surgery; Surgery date: 3-7 days post-operative; Additional info: R/O ischemic bowel. Sent CT abd/pel from earlier today , with report TECHNIQUE: Axial computed tomography images of the abdomen and pelvis without intravenous contrast. This CT exam was performed using one or more of the following dose reduction techniques: automated exposure control, adjustment of the mA and/or kV according to patient size, and/or use of iterative reconstruction technique. Coronal and sagittal reformatted images were created and reviewed. COMPARISON: CT - ANGIO ABDOMEN PELVIS W/CONT 10/15/2016 2:52:43 PM FINDINGS: Lower thorax: There are small to moderate bilateral pleural effusions with some associated atelectasis in the visualized lower lung zones. Additional airspace opacity in the lingula and both lower lobes may represent atelectasis or infiltrate. The heart as visualized appears moderately enlarged. Small pericardial effusion measuring 8 mm on series 3, image 8. There is an esophagogastric tube which terminates at the mid stomach. There is some oral contrast within the esophagus suggesting reflux or vomiting. ABDOMEN: Liver: There are no focal liver lesions present. Gallbladder and bile ducts: The gallbladder is normal. No calcified stones. No ductal dilation. Pancreas: The pancreas is normal. No ductal dilation. Spleen: The spleen is normal. Adrenals: The adrenal glands are normal. Kidneys and ureters: Kidneys are unremarkable aside from a small 1.4 CM isodense lesion at the right midpole. This is incompletely characterized. There is no evidence of hydronephrosis. Stomach and bowel: There is diffuse fatty infiltration involving the wall of the colon. This is nonspecific but can be seen in long-standing inflammatory bowel disease. Please correlate clinically. There are diffusely fluid-filled small bowel loops, some of which appear mildly distended. This could represent ileus or perhaps early or partial mild small bowel obstruction. Evaluation for bowel ischemia is rather limited without IV contrast. The stomach is normal. Appendix: No findings to suggest acute appendicitis. PELVIS: Bladder: Bladder is decompressed around a Taylor catheter. No stones. Reproductive: Unremarkable as visualized. ABDOMEN and PELVIS: Intraperitoneal space: There is no free intraperitoneal air. No significant fluid collection. Bones/joints: There are sternal wires consistent with previous sternotomy incision. There are mild degenerative changes present. No acute fracture. No dislocation. Soft tissues: There is a small amount of fluid in both paracolic gutters, abnormal although nonspecific. There is diffuse anasarca. There are bilateral fat-containing inguinal hernias. Surgical skin stables are noted running craniocaudally in the anterior abdomen midline both above and below the umbilicus. Vasculature: There is a right common femoral line which terminates in the right external iliac vein. The aorta is normal. No abdominal aortic aneurysm. Lymph nodes: There is no evidence of lymphadenopathy. IMPRESSION: 1. There are small to moderate bilateral pleural effusions with some associated atelectasis in the visualized lower lung zones. 2. Additional airspace opacity in the lingula and both lower lobes may represent atelectasis or infiltrate. 3. The heart as visualized appears moderately enlarged. 4. Small pericardial effusion measuring 8 mm on series 3, image 8. 5. Kidneys are unremarkable aside from a small 1.4 CM isodense lesion at the right midpole. This is incompletely characterized. 6. There is diffuse fatty infiltration involving the wall of the colon. This is nonspecific but can be seen in long-standing inflammatory bowel disease. Please correlate clinically. 7. There are diffusely fluid-filled small bowel loops, some of which appear mildly distended. This could represent ileus or perhaps early or partial mild small bowel obstruction. Evaluation for bowel ischemia is rather limited without IV contrast. 8. There is a small amount of fluid in both paracolic gutters, abnormal although nonspecific. There is diffuse anasarca. Dictated By: Corey Farah MD, MD Dictated Date/Time: 10/15/162315 Signed By: Corey Farah MD Date Signed: [id number] Transcribed By: MEENAKSHI Transcribe Date/Time : 10/15/162315 AFTAB/JOAQUIM Assessment and Plan (1) Acute diffuse ischemia of intestine Status: Acute (2) Acute renal failure Status: Acute (3) Hx of CABG Status: Acute (4) CAD (coronary artery disease) Status: Acute (5) Shock liver Status: Acute (6) Severe sepsis Status: Acute - Assessment and Plan (Free Text) Assessment: A/P- 51 year old male with HTN s/p disected aortic aneurysm repair 2 weeks ago at [facility] ( correction to previous notes not CABG as more info was provided today by ICU team) was admitted on 10/06/2016 with abd pain found to have mesenteric ischemia, non operable and has remianed on the vent since post ex lap in ICU and has developed ARF on emergent HD , sepsis, shock liver, respiratory failure and septic. s/p extubation 2 days ago afebrile however leukcoytosis continues to rise despite being on broad spectrum antibiotics most likley secondary to necrotic bowel. blood cx- neg x 2 urine cx- neg trach asp cx- yeast species 1.mesenteric ischemia 2. ARF on HD 3.shock liver 4.sepsis 5.respiratory failure 6. s/p thoracoabdominal aortic aneurysm disection repai 2 weeks ago at [facility] 7. leukocytosis plan- advise to continue with IV meropenem day #4. advise to continue with HD dose IV vancomycin as well. continue with IV flagyl as well. advise to continue with antifungal as well, day #2. Prognosis poor. ICU time 45 minutes.
--- NOTE | 2016-10-16 12:39 | CP.CCUPN ---
<Kenan Carbone - Last Filed: 10/16/16 15:41> CCU Subjective - Physician Review Events Since Last Encounter (Free Text): 10/16/16 10:00 Day#11 since Ex lap - 51 YO M seen resting in bed on a ventemask saturating at 99%. He is awake and able to follow commands. His pain is controlled with morphine PRN, he is hemodynamically stable. Today he is having a Pick line placed for TPN. Spoke with Dr. Noguera which is the surgical director at the [place] [facility]. He is willing to accept the patient for resection of the bowl and possible transplantation if patient fits the Criteria, this is only if he is stable from a cardiac standpoint (thoracoabdominal aortic disection. Will speak to Dr. Wheat at [facility], after he reviews the imaging studies. 10/16/16 15:09 Critical Care Time Spent (in minutes): 30 CCU Objective - Vital Signs / Intake & Output Vital Signs (Last 4 hours): Vital Signs Temp Pulse Resp BP Pulse Ox 10/16/16 11:25 98.6 F 78 29 H 158/68 H 99 10/16/16 11:00 98.6 F 71 30 H 151/70 H 99 10/16/16 10:00 68 30 H 156/66 H 98 Intake and Output (Last 8hrs): Intake & Output 10/15/16 10/16/16 10/16/16 22:59 06:59 14:59 Intake Total 1260 640 180 Output Total 0 3050 Balance 1260 -2410 180 Intake: IV 360 140 Intake, Piggyback 100 500 180 Oral 800 Output: Gastric Amount 600 Stomach 600 Urine 0 150 Urethral (Taylor) 0 150 Other 2300 - Physical Exam Head: Positive for: Atraumatic, Normocephalic Pupils: Positive for: PERRL Conjunctiva: Positive for: Normal. Negative for: Icteric Ears: Positive for: Normal Mouth: Positive for: Moist Mucous Membranes, Other (Dry Blood noticed in oral region. Blood noted via NG tube suction) Nose (External): Positive for: Atraumatic Nose (Internal): Positive for: Normal Inspection Neck: Positive for: Trachea Midline. Negative for: JVD Respiratory/Chest: Positive for: Decreased Breath Sounds, Rhonchi Cardiovascular: Positive for: Regular Rate and Rhythm, Tachycardic. Negative for: Murmurs, Rub Abdomen: Positive for: Tenderness (Generalized tenderness to palpate. [place] seen intact on mid epigastrium, no pus or discharge noted), Distention, Guarding Genitourinary Male: Positive for: Testicle Swelling Upper Extremity: Positive for: Normal Inspection, Edema Lower Extremity: Positive for: Cyanosis, Swelling, Other (Absent dorsal pedal pulse on right foot. ). Negative for: CALF TENDERNESS Neurological: Positive for: Other (Patient is able to follow comand and move all extremities.) Skin: Positive for: Warm, Other (+ anasarca). Negative for: Rashes Psychiatric: Positive for: Alert, Other (sedated). Negative for: Oriented x 3 - Medications Active Medications: Active Medications Generic Name Dose Route Start Last Admin Trade Name Freq PRN Reason Stop Dose Admin Acetaminophen 650 mg 10/06/16 15:27 Tylenol 325mg Tab PO Q6 PRN Fever >100.4 F Albuterol/Ipratropium 3 ml 10/16/16 05:44 Duoneb 3 Mg/0.5 Mg (3 Ml) Ud INH RQ6 PRN Shortness of Breath Metronidazole 100 mls @ 100 mls/hr 10/08/16 11:15 10/16/16 08:44 Flagyl 500mg/100ml Ns IVPB 100 mls/hr Q8 RUTHY Administration Pantoprazole Sodium 40 mg/ 100 mls @ 20 mls/hr 10/12/16 10:15 10/16/16 08:45 Sodium Chloride IVPB 20 mls/hr Q5H RUTHY Administration 8 MG/HR Meropenem 500 mg/ Sodium 100 mls @ 100 mls/hr 10/13/16 21:00 10/16/16 08:44 Chloride IVPB 100 mls/hr Q12 RUTHY Administration Vancomycin HCl 750 mg/ Sodium 250 mls @ 166.667 mls/hr 10/15/16 09:00 04:00 Chloride IVPB 166.667 mls/hr QOTHERDAY RUTHY Administration Micafungin Sodium 100 mg/ 100 mls @ 100 mls/hr 10/15/16 14:00 10/15/16 15:54 Sodium Chloride IVPB 100 mls/hr DAILY RUTHY Administration Labetalol HCl 10 mg 10/16/16 13:00 Trandate IVP Q4 RUTHY Morphine Sulfate 4 mg 10/14/16 16:50 10/15/16 17:00 Morphine IVP 4 mg Q4 PRN Administration Pain, severe (8-10) Ondansetron HCl 4 mg 10/06/16 15:27 Zofran Inj IVP Q6 PRN Nausea/Vomiting - Patient Studies Lab Studies: Microbiology Studies 10/13/16 14:10 Blood Culture - Preliminary Blood-Venous NO GROWTH AFTER 48 HOURS 10/13/16 14:10 Blood Culture - Preliminary Blood-Venous NO GROWTH AFTER 48 HOURS 10/13/16 15:35 Urine Culture - Final Urine,Taylor No Growth (<1,000 CFU/ML) 10/13/16 15:35 Gram Stain - Final Trachasp Sputum Culture - Final Yeast Species Lab Studies 10/16/16 10/16/16 10/16/16 Range/Units 04:20 04:20 04:20 WBC 32.4 H (4.8-10.8) K/uL RBC 3.66 L (4.40-5.90) Mil/uL Hgb 10.0 L (12.0-18.0) g/dL Hct 32.6 L (35.0-51.0) % MCV 88.9 (80.0-94.0) fl MCH 27.4 (27.0-31.0) pg MCHC 30.8 L (33.0-37.0) g/dL RDW 17.1 H (11.5-14.5) % Plt Count 194 (130-400) K/uL MPV 10.9 (7.2-11.7) fl Neut % (Auto) 87.0 H (50.0-75.0) % Lymph % (Auto) 6.3 L (20.0-40.0) % [place] % (Auto) 6.3 (0.0-10.0) % Eos % (Auto) 0.1 (0.0-4.0) % Baso % (Auto) 0.3 (0.0-2.0) % Neut # 28.2 H (1.8-7.0) K/uL Lymph # 2.1 (1.0-4.3) K/uL [place] # 2.0 H (0.0-0.8) K/uL Eos # 0.0 (0.0-0.7) K/uL Baso # 0.1 (0.0-0.2) K/uL Neutrophils % (Manual) 84 H (42-75) % Band Neutrophils % 3 H (0-2) % Lymphocytes % (Manual) 7 L (20-50) % Monocytes % (Manual) 6 (0-10) % Nucleated RBC % 13 H (0-0) % Platelet Estimate Normal (NORMAL) Polychromasia Slight Anisocytosis (manual) Slight PT 36.0 H (9.8-13.1) Seconds INR 3.1 H (0.9-1.2) APTT 57.6 H D (25.6-37.1) Seconds Sodium 140 (132-148) mmol/l Potassium 5.0 (3.6-5.0) MMOL/L Chloride 99 (98-107) mmol/L Carbon Dioxide 19 L (22-30) mmol/L Anion Gap 27 H (10-20) BUN 58 H (9-20) mg/dl Creatinine 5.3 H (0.8-1.5) mg/dL Est GFR ( Amer) 14 Est GFR (Non-Af Amer) 12 Random Glucose 80 (75-110) mg/dL Calcium 8.5 (8.4-10.2) mg/dL Procalcitonin (0.19-0.49) NG/ML HIV 1&2 Antibody Screen (NEGATIVE) 10/15/16 10/15/16 Range/Units 14:31 04:20 WBC (4.8-10.8) K/uL RBC (4.40-5.90) Mil/uL Hgb (12.0-18.0) g/dL Hct (35.0-51.0) % MCV (80.0-94.0) fl MCH (27.0-31.0) pg MCHC (33.0-37.0) g/dL RDW (11.5-14.5) % Plt Count (130-400) K/uL MPV (7.2-11.7) fl Neut % (Auto) (50.0-75.0) % Lymph % (Auto) (20.0-40.0) % [place] % (Auto) (0.0-10.0) % Eos % (Auto) (0.0-4.0) % Baso % (Auto) (0.0-2.0) % Neut # (1.8-7.0) K/uL Lymph # (1.0-4.3) K/uL [place] # (0.0-0.8) K/uL Eos # (0.0-0.7) K/uL Baso # (0.0-0.2) K/uL Neutrophils % (Manual) (42-75) % Band Neutrophils % (0-2) % Lymphocytes % (Manual) (20-50) % Monocytes % (Manual) (0-10) % Nucleated RBC % (0-0) % Platelet Estimate (NORMAL) Polychromasia Anisocytosis (manual) PT (9.8-13.1) Seconds INR (0.9-1.2) APTT (25.6-37.1) Seconds Sodium (132-148) mmol/l Potassium (3.6-5.0) MMOL/L Chloride (98-107) mmol/L Carbon Dioxide (22-30) mmol/L Anion Gap (10-20) BUN (9-20) mg/dl Creatinine (0.8-1.5) mg/dL Est GFR ( Amer) Est GFR (Non-Af Amer) Random Glucose (75-110) mg/dL Calcium (8.4-10.2) mg/dL Procalcitonin 43.44 H (0.19-0.49) NG/ML HIV 1&2 Antibody Screen Negative (NEGATIVE) Laboratory Results - last 24 hr 10/15/16 10/15/16 10/16/16 04:20 14:31 04:20 WBC 32.4 H RBC 3.66 L Hgb 10.0 L Hct 32.6 L MCV 88.9 MCH 27.4 MCHC 30.8 L RDW 17.1 H Plt Count 194 MPV 10.9 Neut % (Auto) 87.0 H Lymph % (Auto) 6.3 L [place] % (Auto) 6.3 Eos % (Auto) 0.1 Baso % (Auto) 0.3 Neut # 28.2 H Lymph # 2.1 [place] # 2.0 H Eos # 0.0 Baso # 0.1 Neutrophils % (Manual) 84 H Band Neutrophils % 3 H Lymphocytes % (Manual) 7 L Monocytes % (Manual) 6 Nucleated RBC % 13 H Platelet Estimate Normal Polychromasia Slight Anisocytosis (manual) Slight PT INR APTT Sodium Potassium Chloride Carbon Dioxide Anion Gap BUN Creatinine Est GFR ( Amer) Est GFR (Non-Af Amer) Random Glucose Calcium Procalcitonin 43.44 H HIV 1&2 Antibody Screen Negative 10/16/16 10/16/16 04:20 04:20 WBC RBC Hgb Hct MCV MCH MCHC RDW Plt Count MPV Neut % (Auto) Lymph % (Auto) [place] % (Auto) Eos % (Auto) Baso % (Auto) Neut # Lymph # [place] # Eos # Baso # Neutrophils % (Manual) Band Neutrophils % Lymphocytes % (Manual) Monocytes % (Manual) Nucleated RBC % Platelet Estimate Polychromasia Anisocytosis (manual) PT 36.0 H INR 3.1 H APTT 57.6 H D Sodium 140 Potassium 5.0 Chloride 99 Carbon Dioxide 19 L Anion Gap 27 H BUN 58 H Creatinine 5.3 H Est GFR ( Amer) 14 Est GFR (Non-Af Amer) 12 Random Glucose 80 Calcium 8.5 Procalcitonin HIV 1&2 Antibody Screen Assessment/Plan - Assessment and Plan (Free Text) Assessment: Assessment: 51 YO M w/ PMH Type A aortic aneursym repair 2 weeks ago at [facility] by Dr. Wheat, cocaine abuse had presented to the ER for abdominal pain w/ nausea and emesis. Pt was found to have evidence of mesenteric ischemia/ infarction on CT and a emergent exploratory laprotamy was done and they were unable to resect the bowl because it extended from ligament of teres to the transverse colon. 1) Septic Shock, secondary to ischemic bowl - Spoke with Dr. Noguera at the [place] [facility]. They are willing to accept the patient of the patient for bowl resection and possible intestinal transplant, if the patient is safe for transfer. Will speak to [facility] regarding his thoracoabdominal aortic dissection, to see if he is a candidate for repair. 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 - WBC has recently been trending up to 32.4. Patient has remained afebrile. - Lactic acid has trended down to 2.6. Procalcitonin has trended down to 43 - Patient has been extubated and is currently on a venti mask saturating at 98%. - Patient is off of pressers and blood pressure remains stable - Argatroban was held due to GI bleed noticed via NG tube. Today PTT is 36. Continue serial PTT - Pain controlled with Morphine PRN. - Cont w/ Cefapime, Microfungin, Flagyl, and Vancomycin 2)Recent aortic aneurysm rupture repair - Will be sending imaging of the patient to [facility] today for Dr. Wheat to assess further intervention. - Most recent CT showed thracoabdominal aortic dissection. - Hemodynamically stable 3) Mesentric ischemia - Most likely secondary to thracoabdominal aortic dissection. - PICC line will be placed today after the 2 units of Fresh frozen plasma - Patient will be placed on TPN 3) Hypertension -Labetolol 10 mg Q4. - Monitor BP 4.) Elevated liver enzymes most likely secondary to mesenteric ischemia - AST:181, ALT:109:-> trending down - Total bilirubin: 6.9, Seems to be trending up - GI consult appreciated - Continue to monitor 5. Renal failure secondary to decrease perfusion - Receiving HD yesterday, next session is tomorrow - BUN:58, Creatinine:5.3 - Dr. Zavaleta on consult 6) A Fib ( Resolved) - Resolved after receiving amiodarone. - Cardio consult appreciated 7) Upper GI Bleed - PTT today was 36 - Blood noted via NG suction - Continue IV protonix - Hold Argatroban. - Continue serial PTT 8) Heparin Induced thrombocytopenia - Avoid all heparin products - Heparin induced platelet antibody is weakly positive - Seratonin Rel assay ordered - Platelet today 194 - Argatorban was given 9) DVT prophylaxis - Avoid heparin b/c of DIC - Hold argatriban b/c of GI bleed. Monitor PTT - SCD <Jonathan Avelar M - Last Filed: 10/16/16 16:12> CCU Objective - Vital Signs / Intake & Output Vital Signs (Last 4 hours): Vital Signs Pulse Resp BP Pulse Ox 10/16/16 15:24 79 24 158/73 H 98 Intake and Output (Last 8hrs): Intake & Output 10/16/16 10/16/16 10/16/16 06:59 14:59 22:59 Intake Total 640 180 Output Total 3050 Balance -2410 180 Intake: IV 140 Intake, Piggyback 500 180 Output: Gastric Amount 600 Stomach 600 Urine 150 Urethral (Taylor) 150 Other 2300 - Medications Active Medications: Active Medications Generic Name Dose Route Start Last Admin Trade Name Freq PRN Reason Stop Dose Admin Acetaminophen 650 mg 10/06/16 15:27 Tylenol 325mg Tab PO Q6 PRN Fever >100.4 F Albuterol/Ipratropium 3 ml 10/16/16 05:44 Duoneb 3 Mg/0.5 Mg (3 Ml) Ud INH RQ6 PRN Shortness of Breath Metronidazole 100 mls @ 100 mls/hr 10/08/16 11:15 10/16/16 08:44 Flagyl 500mg/100ml Ns IVPB 100 mls/hr Q8 RUTHY Administration Pantoprazole Sodium 40 mg/ 100 mls @ 20 mls/hr 10/12/16 10:15 10/16/16 08:45 Sodium Chloride IVPB 20 mls/hr Q5H RUTHY Administration 8 MG/HR Meropenem 500 mg/ Sodium 100 mls @ 100 mls/hr 10/13/16 21:00 10/16/16 08:44 Chloride IVPB 100 mls/hr Q12 RUTHY Administration Vancomycin HCl 750 mg/ Sodium 250 mls @ 166.667 mls/hr 10/15/16 09:00 04:00 Chloride IVPB 166.667 mls/hr QOTHERDAY RUTHY Administration Micafungin Sodium 100 mg/ 100 mls @ 100 mls/hr 10/15/16 14:00 10/15/16 15:54 Sodium Chloride IVPB 100 mls/hr DAILY RUTHY Administration Multivitamins/Vitamin C 10 ml/ 1,013 mls @ 50 mls/hr 10/16/16 15:00 Chromium/Copper/Manganese/ IV 10/17/16 11:15 Zinc 3 ml/ Amino Acids/ .[id number] ONE Electrolytes/Dextrose Labetalol HCl 10 mg 10/16/16 14:00 10/16/16 13:48 Trandate IVP 10 mg Q4 RUTHY Administration Morphine Sulfate 4 mg 10/14/16 16:50 10/15/16 17:00 Morphine IVP 4 mg Q4 PRN Administration Pain, severe (8-10) Ondansetron HCl 4 mg 10/06/16 15:27 Zofran Inj IVP Q6 PRN Nausea/Vomiting - Patient Studies Lab Studies: Microbiology Studies 10/13/16 14:10 Blood Culture - Preliminary Blood-Venous NO GROWTH AFTER 3 DAYS 10/13/16 14:10 Blood Culture - Preliminary Blood-Venous NO GROWTH AFTER 3 DAYS 10/13/16 15:35 Urine Culture - Final Urine,Taylor No Growth (<1,000 CFU/ML) 10/13/16 15:35 Gram Stain - Final Trachasp Sputum Culture - Final Yeast Species Lab Studies 10/16/16 10/16/16 10/16/16 Range/Units 04:20 04:20 04:20 WBC 32.4 H (4.8-10.8) K/uL RBC 3.66 L (4.40-5.90) Mil/uL Hgb 10.0 L (12.0-18.0) g/dL Hct 32.6 L (35.0-51.0) % MCV 88.9 (80.0-94.0) fl MCH 27.4 (27.0-31.0) pg MCHC 30.8 L (33.0-37.0) g/dL RDW 17.1 H (11.5-14.5) % Plt Count 194 (130-400) K/uL MPV 10.9 (7.2-11.7) fl Neut % (Auto) 87.0 H (50.0-75.0) % Lymph % (Auto) 6.3 L (20.0-40.0) % [place] % (Auto) 6.3 (0.0-10.0) % Eos % (Auto) 0.1 (0.0-4.0) % Baso % (Auto) 0.3 (0.0-2.0) % Neut # 28.2 H (1.8-7.0) K/uL Lymph # 2.1 (1.0-4.3) K/uL [place] # 2.0 H (0.0-0.8) K/uL Eos # 0.0 (0.0-0.7) K/uL Baso # 0.1 (0.0-0.2) K/uL Neutrophils % (Manual) 84 H (42-75) % Band Neutrophils % 3 H (0-2) % Lymphocytes % (Manual) 7 L (20-50) % Monocytes % (Manual) 6 (0-10) % Nucleated RBC % 13 H (0-0) % Platelet Estimate Normal (NORMAL) Polychromasia Slight Anisocytosis (manual) Slight PT 36.0 H (9.8-13.1) Seconds INR 3.1 H (0.9-1.2) APTT 57.6 H D (25.6-37.1) Seconds Sodium 140 (132-148) mmol/l Potassium 5.0 (3.6-5.0) MMOL/L Chloride 99 (98-107) mmol/L Carbon Dioxide 19 L (22-30) mmol/L Anion Gap 27 H (10-20) BUN 58 H (9-20) mg/dl Creatinine 5.3 H (0.8-1.5) mg/dL Est GFR ( Amer) 14 Est GFR (Non-Af Amer) 12 Random Glucose 80 (75-110) mg/dL Calcium 8.5 (8.4-10.2) mg/dL Procalcitonin (0.19-0.49) NG/ML HIV 1&2 Antibody Screen (NEGATIVE) 10/15/16 10/15/16 Range/Units 14:31 04:20 WBC (4.8-10.8) K/uL RBC (4.40-5.90) Mil/uL Hgb (12.0-18.0) g/dL Hct (35.0-51.0) % MCV (80.0-94.0) fl MCH (27.0-31.0) pg MCHC (33.0-37.0) g/dL RDW (11.5-14.5) % Plt Count (130-400) K/uL MPV (7.2-11.7) fl Neut % (Auto) (50.0-75.0) % Lymph % (Auto) (20.0-40.0) % [place] % (Auto) (0.0-10.0) % Eos % (Auto) (0.0-4.0) % Baso % (Auto) (0.0-2.0) % Neut # (1.8-7.0) K/uL Lymph # (1.0-4.3) K/uL [place] # (0.0-0.8) K/uL Eos # (0.0-0.7) K/uL Baso # (0.0-0.2) K/uL Neutrophils % (Manual) (42-75) % Band Neutrophils % (0-2) % Lymphocytes % (Manual) (20-50) % Monocytes % (Manual) (0-10) % Nucleated RBC % (0-0) % Platelet Estimate (NORMAL) Polychromasia Anisocytosis (manual) PT (9.8-13.1) Seconds INR (0.9-1.2) APTT (25.6-37.1) Seconds Sodium (132-148) mmol/l Potassium (3.6-5.0) MMOL/L Chloride (98-107) mmol/L Carbon Dioxide (22-30) mmol/L Anion Gap (10-20) BUN (9-20) mg/dl Creatinine (0.8-1.5) mg/dL Est GFR ( Amer) Est GFR (Non-Af Amer) Random Glucose (75-110) mg/dL Calcium (8.4-10.2) mg/dL Procalcitonin 43.44 H (0.19-0.49) NG/ML HIV 1&2 Antibody Screen Negative (NEGATIVE) Laboratory Results - last 24 hr 10/15/16 10/15/16 10/16/16 04:20 14:31 04:20 WBC 32.4 H RBC 3.66 L Hgb 10.0 L Hct 32.6 L MCV 88.9 MCH 27.4 MCHC 30.8 L RDW 17.1 H Plt Count 194 MPV 10.9 Neut % (Auto) 87.0 H Lymph % (Auto) 6.3 L [place] % (Auto) 6.3 Eos % (Auto) 0.1 Baso % (Auto) 0.3 Neut # 28.2 H Lymph # 2.1 [place] # 2.0 H Eos # 0.0 Baso # 0.1 Neutrophils % (Manual) 84 H Band Neutrophils % 3 H Lymphocytes % (Manual) 7 L Monocytes % (Manual) 6 Nucleated RBC % 13 H Platelet Estimate Normal Polychromasia Slight Anisocytosis (manual) Slight PT INR APTT Sodium Potassium Chloride Carbon Dioxide Anion Gap BUN Creatinine Est GFR ( Amer) Est GFR (Non-Af Amer) Random Glucose Calcium Procalcitonin 43.44 H HIV 1&2 Antibody Screen Negative 10/16/16 10/16/16 04:20 04:20 WBC RBC Hgb Hct MCV MCH MCHC RDW Plt Count MPV Neut % (Auto) Lymph % (Auto) [place] % (Auto) Eos % (Auto) Baso % (Auto) Neut # Lymph # [place] # Eos # Baso # Neutrophils % (Manual) Band Neutrophils % Lymphocytes % (Manual) Monocytes % (Manual) Nucleated RBC % Platelet Estimate Polychromasia Anisocytosis (manual) PT 36.0 H INR 3.1 H APTT 57.6 H D Sodium 140 Potassium 5.0 Chloride 99 Carbon Dioxide 19 L Anion Gap 27 H BUN 58 H Creatinine 5.3 H Est GFR ( Amer) 14 Est GFR (Non-Af Amer) 12 Random Glucose 80 Calcium 8.5 Procalcitonin HIV 1&2 Antibody Screen Assessment/Plan (1) Severe sepsis Current Visit: Yes Status: Acute Comment: Off levophed drip Continue empiric abx coverage (2) Ischemic necrosis of small bowel Current Visit: Yes Status: Acute Comment: Ischemic entire small bowel and right colon S/p Exploratory laparotomy with examination of entire bowel 10/06 No further surgical intervention Continue empiric abx coverage IV vancomycin, IV flagyl, IV meropenem and IV micafungin. (3) Paroxysmal atrial fibrillation Current Visit: Yes Status: Acute Comment: HR controlled, Back in NSR Auto anticoagulated Off Amiodarone drip (4) Ischemic necrosis of large intestine Current Visit: Yes Status: Acute (5) Acute diffuse ischemia of intestine Current Visit: Yes Status: Acute (6) Acute renal failure (ARF) Current Visit: Yes Status: Acute Comment: HD access placed, right groin Continue HD as per renal (7) CAD (coronary artery disease) Current Visit: Yes Status: Acute (8) Hx of CABG Current Visit: Yes Status: Acute (9) Shock liver Current Visit: Yes Status: Acute (10) Thrombocytopenia Current Visit: Yes Status: Acute Attending/Attestation - Attestation I have personally seen and examined this patient.: Yes I have fully participated in the care of the patient.: Yes I have reviewed all pertinent clinical information: Yes Notes (Text): 10/16/16 15:47 The patient was Seen/interviewed and examined by me at the bedside during ICU round, Medical records reviewed and Management issues were discussed and formulated with the house staff. I have reviewed all the relevant clinical, laboratory, hemodynamic, radiographic data and medications I concur with resident's assessment and plan of care, as outlined in Dr Carbone note CT scan of Chest, and ABD/Pelvis with PO /IV contrast reviewed. Vascular and general surgery appreciated Patient has a recent Repair of type A thoracic aortic aneurysm at [facility], I called and discussed the CT findings with the thoracic surgery, he requested to see the actual CT scan films, which was copied and placed on CDs awaiting chicken picker to be shipped to [facility], after he review the films, we will discuss the possibility of transfer to [facility]. We discussed with the Dr. Noguera at the [place] [facility], he will be willing to take the patient once he is stable for transplant for bowl resection , PICC line placement, parenteral nutrition and possible intestinal transplant Code status: Full Total Critical Care Time spent 56 minutes The documented time is cumulative and includes review of all the relevant clinical, laboratory, hemodynamic, radiographic data and medications
[2016-10-16] MEDS ORDERED: Labetalol 5mg/ml (4ml) IVP SCH (13:00)
--- NOTE | 2016-10-16 13:14 | CP.PCM.PN ---
Subjective - Date & Time of Evaluation Date of Evaluation: 10/16/16 Time of Evaluation: 13:10 - Subjective Subjective: no overnight events Objective - Vital Signs/Intake and Output Vital Signs (last 24 hours): Temp Pulse Resp BP Pulse Ox 98.6 F 78 29 H 158/68 H 99 10/16/16 11:25 10/16/16 11:25 10/16/16 11:25 10/16/16 11:25 10/16/16 11:25 Intake and Output: 10/16/16 10/16/16 06:59 18:59 Intake Total 820 180 Output Total 3050 Balance -2230 180 - Medications Medications: Current Medications Acetaminophen (Tylenol 325mg Tab) 650 mg PO Q6 PRN PRN Reason: Fever >100.4 F Albuterol/Ipratropium (Duoneb 3 Mg/0.5 Mg (3 Ml) Ud) 3 ml INH RQ6 PRN PRN Reason: Shortness of Breath Metronidazole (Flagyl 500mg/100ml Ns) 100 mls @ 100 mls/hr IVPB Q8 [facility] Last Admin: 10/16/16 08:44 Dose: 100 mls/hr Pantoprazole Sodium 40 mg/ (Sodium Chloride) 100 mls @ 20 mls/hr IVPB Q5H RUTHY PRN Reason: 8 MG/HR Last Admin: 10/16/16 08:45 Dose: 20 mls/hr Meropenem 500 mg/ Sodium (Chloride) 100 mls @ 100 mls/hr IVPB Q12 [facility] Last Admin: 10/16/16 08:44 Dose: 100 mls/hr Vancomycin HCl 750 mg/ Sodium (Chloride) 250 mls @ 166.667 mls/hr IVPB QOTHERDAY [facility] Last Admin: 10/16/16 04:00 Dose: 166.667 mls/hr Micafungin Sodium 100 mg/ (Sodium Chloride) 100 mls @ 100 mls/hr IVPB DAILY [facility] Last Admin: 10/15/16 15:54 Dose: 100 mls/hr Labetalol HCl (Trandate) 10 mg IVP Q4 RUTHY Morphine Sulfate (Morphine) 4 mg IVP Q4 PRN PRN Reason: Pain, severe (8-10) Last Admin: 10/15/16 17:00 Dose: 4 mg Ondansetron HCl (Zofran Inj) 4 mg IVP Q6 PRN PRN Reason: Nausea/Vomiting - Labs Labs: 10/16/16 04:20 10/16/16 04:20 PT 36.0 Seconds (9.8-13.1) H 10/16/16 04:20 INR 3.1 (0.9-1.2) H 10/16/16 04:20 APTT 57.6 Seconds (25.6-37.1) H D 10/16/16 04:20 - GI/Abdominal Exam GI & Abdominal Exam: Soft, Tenderness, Normal Bowel Sounds Assessment and Plan - Assessment and Plan (Free Text) Assessment: 51 yo male with mesenteric ischemia CTA noted vascular input appreciated for possible transfer
[2016-10-16] MEDS: Labetalol 5 mg/ml Inj 20ML IVP SCH ×3 (13:48→23:05)
[2016-10-16] MEDS ORDERED: Multivitamin (MVI) 10 ML, Chromium/Copper/Manganese/Zinc 3 ML in Amino/Dex E 4.25/10 10... IV ONE (15:00)
[2016-10-16] MEDS ORDERED: Lidocaine 1% Inj (20ml) ONE (15:08)
--- NOTE | 2016-10-16 15:35 | PCM.SURG1 ---
Surgeon's Initial Post Op Note - Surgeon's Notes Surgeon: Andrea Deal MD Maternal Child Nurse: None Type of Anesthesia: Local Pre-Operative Diagnosis: Poor venous access Operative Findings: Patent right brachial vein. Post-Operative Diagnosis: Poor venous access Operation Performed: Single lumen picc placement right brachial vein. 37 cm. Tip in SVC. Specimen/Specimens Removed: None Estimated Blood Loss: EBL {In ML}: 3 Blood Products Given: N/A Drains Used: No Drains Post-Op Condition: Poor Date of Surgery/Procedure: 10/16/16 Time of Surgery/Procedure: 15:30
--- NOTE | 2016-10-16 16:06 | CP.PCM.CON ---
History of Present Illness - History of Present Illness History of Present Illness: 51 year old male with a history of tobacco abuse, HTN, recent aortic dissection s/p repair at [facility], admitted with abdominal pain, found to have mesenteric ischemia s/p exploratory laparotomy, GOPI on dialysis, found to have a positive heparin antibody s/p argatroban, complicated by GI bleeding, off anticoagulation. I have been asked to evaluate the patient and anticoagulation need given the positive heparin Ab. The patient is unable to give me much history and the above is from discussion with the ICU team and medical records. Past medical, surgical, family, social history cannot be obtained from the patient. Allergies: per documentation heparin (presumed due to heparin Ab positivity). Review of systems cannot be obtained from the patient. Past Patient History - Past Medical History & Family History Past Medical History?: Yes - Past Social History Smoking Status: Heavy Smoker > 10 Cigarettes Daily (Patient is a heavy smoker per his partner's report) Drugs: Cannabis, Cocaine (Patient's partner reports that patient is NOT a habitual cocaine user) - CARDIAC Hx Cardiac Disorders: Yes Hx Hypertension: Yes Other/Comment: CABG 2 wks ago - PULMONARY Hx Respiratory Disorders: No Other/Comment: smoker - NEUROLOGICAL Hx Neurological Disorder: No Other/Comment: headaches - HEENT Hx HEENT Problems: No - RENAL Hx Chronic Kidney Disease: No - ENDOCRINE/METABOLIC Hx Endocrine Disorders: No - HEMATOLOGICAL/ONCOLOGICAL Hx Blood Disorders: No - INTEGUMENTARY Hx Dermatological Problems: No - MUSCULOSKELETAL/RHEUMATOLOGICAL Hx Musculoskeletal Disorders: No Hx Falls: No - GASTROINTESTINAL Hx Gastrointestinal Disorders: No Other/Comment: kidney stones - GENITOURINARY/GYNECOLOGICAL Hx Genitourinary Disorders: No - PSYCHIATRIC Hx Psychophysiologic Disorder: No Hx Substance Use: No - SURGICAL HISTORY Hx Surgeries: Yes (cabg 2 wks ago) Hx Coronary Artery Bypass Graft: Yes (about 2 weeks ago) - ANESTHESIA Hx Anesthesia: Yes Hx Anesthesia Reactions: No Hx Malignant Hyperthermia: No Meds Allergies/Adverse Reactions: Allergies Allergy/AdvReac Type Severity Reaction Status Date / Time heparin Allergy HIT- Verified 10/11/16 20:26 Bleeding - Medications Medications: Current Medications Acetaminophen (Tylenol 325mg Tab) 650 mg PO Q6 PRN PRN Reason: Fever >100.4 F Albuterol/Ipratropium (Duoneb 3 Mg/0.5 Mg (3 Ml) Ud) 3 ml INH RQ6 PRN PRN Reason: Shortness of Breath Metronidazole (Flagyl 500mg/100ml Ns) 100 mls @ 100 mls/hr IVPB Q8 [facility] Last Admin: 10/16/16 08:44 Dose: 100 mls/hr Pantoprazole Sodium 40 mg/ (Sodium Chloride) 100 mls @ 20 mls/hr IVPB Q5H [facility] PRN Reason: 8 MG/HR Last Admin: 10/16/16 08:45 Dose: 20 mls/hr Meropenem 500 mg/ Sodium (Chloride) 100 mls @ 100 mls/hr IVPB Q12 [facility] Last Admin: 10/16/16 08:44 Dose: 100 mls/hr Vancomycin HCl 750 mg/ Sodium (Chloride) 250 mls @ 166.667 mls/hr IVPB QOTHERDAY [facility] Last Admin: 10/16/16 04:00 Dose: 166.667 mls/hr Micafungin Sodium 100 mg/ (Sodium Chloride) 100 mls @ 100 mls/hr IVPB DAILY [facility] Last Admin: 10/15/16 15:54 Dose: 100 mls/hr Multivitamins/Vitamin C 10 ml/Chromium/Copper/Manganese/Zinc 3 ml/ Amino Acids/ Electrolytes/Dextrose 1,013 mls @ 50 mls/hr IV .[id number] ONE Stop: 10/17/16 11:15 Labetalol HCl (Trandate) 10 mg IVP Q4 [facility] Last Admin: 10/16/16 13:48 Dose: 10 mg Morphine Sulfate (Morphine) 4 mg IVP Q4 PRN PRN Reason: Pain, severe (8-10) Last Admin: 10/15/16 17:00 Dose: 4 mg Ondansetron HCl (Zofran Inj) 4 mg IVP Q6 PRN PRN Reason: Nausea/Vomiting Physical Exam - Head Exam Head Exam: ATRAUMATIC - Eye Exam Eye Exam: Normal appearance - ENT Exam ENT Exam: Mucous Membranes Dry - Respiratory Exam Respiratory Exam: NORMAL BREATHING PATTERN - Cardiovascular Exam Cardiovascular Exam: +S1, +S2 - GI/Abdominal Exam GI & Abdominal Exam: Hypoactive Bowel Sounds - Extremities Exam Extremities exam: Positive for: normal inspection - Neurological Exam Neurological exam: Altered - Skin Skin Exam: Warm Results - Vital Signs Recent Vital Signs: Last Vital Signs Temp 98.6 F 10/16/16 11:25 Pulse 79 07/18/17 15:24 Resp 24 10/16/16 15:24 BP 158/73 H 10/16/16 15:24 Pulse Ox 98 10/16/16 15:24 - Labs Result Diagrams: 10/16/16 04:20 10/16/16 04:20 Labs: Laboratory Results - last 24 hr 10/15/16 10/15/16 10/16/16 04:20 14:31 04:20 WBC 32.4 H RBC 3.66 L Hgb 10.0 L Hct 32.6 L MCV 88.9 MCH 27.4 MCHC 30.8 L RDW 17.1 H Plt Count 194 MPV 10.9 Neut % (Auto) 87.0 H Lymph % (Auto) 6.3 L Hunt % (Auto) 6.3 Eos % (Auto) 0.1 Baso % (Auto) 0.3 Neut # 28.2 H Lymph # 2.1 Hunt # 2.0 H Eos # 0.0 Baso # 0.1 Neutrophils % (Manual) 84 H Band Neutrophils % 3 H Lymphocytes % (Manual) 7 L Monocytes % (Manual) 6 Nucleated RBC % 13 H Platelet Estimate Normal Polychromasia Slight Anisocytosis (manual) Slight PT INR APTT Sodium Potassium Chloride Carbon Dioxide Anion Gap BUN Creatinine Est GFR ( Amer) Est GFR (Non-Af Amer) Random Glucose Calcium Procalcitonin 43.44 H HIV 1&2 Antibody Screen Negative 10/16/16 10/16/16 04:20 04:20 WBC RBC Hgb Hct MCV MCH MCHC RDW Plt Count MPV Neut % (Auto) Lymph % (Auto) Hunt % (Auto) Eos % (Auto) Baso % (Auto) Neut # Lymph # Hunt # Eos # Baso # Neutrophils % (Manual) Band Neutrophils % Lymphocytes % (Manual) Monocytes % (Manual) Nucleated RBC % Platelet Estimate Polychromasia Anisocytosis (manual) PT 36.0 H INR 3.1 H APTT 57.6 H D Sodium 140 Potassium 5.0 Chloride 99 Carbon Dioxide 19 L Anion Gap 27 H BUN 58 H Creatinine 5.3 H Est GFR ( Amer) 14 Est GFR (Non-Af Amer) 12 Random Glucose 80 Calcium 8.5 Procalcitonin HIV 1&2 Antibody Screen Assessment & Plan (1) Heparin allergy Assessment and Plan: Heparin antibody weakly positive serotonin release assay sent to confirm heparin induced thrombocytopenia agree with holding heparin/lovenox products argatroban attempted but due to GI bleeding, unable to continue. Status: Acute (2) Leukocytosis Assessment and Plan: on antibiotics Status: Acute (3) Anemia Assessment and Plan: will send ferritin, retic count, b12, folate NG tube has blood noted; GI bleeding transfusion support PRN Status: Acute (4) Coagulopathy Assessment and Plan: prior anticoagulation nutritional component vit k and FFP PRN Thank you for this interesting consult. Status: Acute
[2016-10-16] MEDS: Micafungin 100 MG in Sodium Chloride 0.9% 100 ML IVPB SCH (17:13)
[2016-10-16] MEDS: Morphine 4 MG/ML VIAL IVP PRN (18:54)
[2016-10-17] MEDS: metroNIDAZOLE 500mg/100ml NS 100 ML IVPB SCH ×3 (00:48→17:05)
[2016-10-17] MEDS: Labetalol 5 mg/ml Inj 20ML IVP SCH ×5 (00:54→22:21)
[2016-10-17] MEDS: Pantoprazole 40 MG in Sodium Chloride 0.9% 100 ML IVPB SCH ×4 (04:58→22:34)
[2016-10-17 05:36] LABS: BASO # 0.1 K/uL (0.0-0.2); BASO % 0.7 % (0.0-2.0); EOS # 0.1 K/uL (0.0-0.7); EOS % 0.6 % (0.0-4.0); HEMOGLOBIN 8.1 g/dL (12.0-18.0); LYMPH # 1.8 K/uL (1.0-4.3); LYMPH % 12.2 % (20.0-40.0); MEAN CELL VOLUME 88.5 fl (80.0-94.0); MEAN CORPUSCULAR HEMOGLOBIN 28.4 pg (27.0-31.0); MONO # 1.4 K/uL (0.0-0.8); MONO % 9.3 % (0.0-10.0); NEUT # 11.5 K/uL (1.8-7.0); NEUT % 77.2 % (50.0-75.0); NRBC % 6.9 % (0.0-0.0); RBC 2.87 Mil/uL (4.40-5.90); RED CELL DISTRIBUTION WIDTH 17.1 % (11.5-14.5); WHITE BLOOD COUNT 14.9 K/uL (4.8-10.8)
[2016-10-17 05:42] LABS: ALB/GLOB RATIO 0.7 (1.0-2.1); ALBUMIN 2.9 g/dL (3.5-5.0); CALCIUM 7.8 mg/dL (8.4-10.2)
[2016-10-17 05:46] LABS: INR 2.9 (0.9-1.2); PARTIAL THROMBOPLASTIN TIME 60.3 Seconds (25.6-37.1)
--- NOTE | 2016-10-17 07:55 | CP.PCM.PN ---
<Selena Hammond - Last Filed: 10/17/16 07:53> Subjective - Date & Time of Evaluation Date of Evaluation: 10/17/16 Time of Evaluation: 06:45 - Subjective Subjective: GENERAL SURGERY PROGRESS NOTE FOR DR. WATSON Patient seen and examined at bedside in the ICU. He said he did not have any pain. And answered basic questions but did not follow commands. NG tube in place. He got a PICC yesterday and was started on TPN. Objective - Vital Signs/Intake and Output Vital Signs (last 24 hours): Temp Pulse Resp BP Pulse Ox 99.1 F 81 33 H 160/75 H 92 L 10/17/16 04:00 10/17/16 06:00 10/17/16 06:00 10/17/16 06:00 10/17/16 06:00 - Medications Medications: Current Medications Acetaminophen (Tylenol 325mg Tab) 650 mg PO Q6 PRN PRN Reason: Fever >100.4 F Albuterol/Ipratropium (Duoneb 3 Mg/0.5 Mg (3 Ml) Ud) 3 ml INH RQ6 PRN PRN Reason: Shortness of Breath Metronidazole (Flagyl 500mg/100ml Ns) 100 mls @ 100 mls/hr IVPB Q8 [facility] Last Admin: 10/17/16 00:48 Dose: 100 mls/hr Pantoprazole Sodium 40 mg/ (Sodium Chloride) 100 mls @ 20 mls/hr IVPB Q5H [facility] PRN Reason: 8 MG/HR Last Admin: 10/17/16 04:58 Dose: 20 mls/hr Meropenem 500 mg/ Sodium (Chloride) 100 mls @ 100 mls/hr IVPB Q12 [facility] Last Admin: 10/16/16 21:09 Dose: 100 mls/hr Vancomycin HCl 750 mg/ Sodium (Chloride) 250 mls @ 166.667 mls/hr IVPB QOTHERDAY [facility] Last Admin: 10/16/16 04:00 Dose: 166.667 mls/hr Micafungin Sodium 100 mg/ (Sodium Chloride) 100 mls @ 100 mls/hr IVPB DAILY [facility] Last Admin: 10/16/16 17:13 Dose: 100 mls/hr Multivitamins/Vitamin C 10 ml/Chromium/Copper/Manganese/Zinc 3 ml/ Amino Acids/ Electrolytes/Dextrose 1,013 mls @ 50 mls/hr IV .[id number] ONE Stop: 10/17/16 11:15 Last Admin: 10/16/16 17:48 Dose: 50 mls/hr Labetalol HCl (Trandate) 10 mg IVP Q4 [facility] Last Admin: 10/17/16 04:57 Dose: 10 mg Morphine Sulfate (Morphine) 4 mg IVP Q4 PRN PRN Reason: Pain, severe (8-10) Last Admin: 10/16/16 18:54 Dose: 4 mg Ondansetron HCl (Zofran Inj) 4 mg IVP Q6 PRN PRN Reason: Nausea/Vomiting - Labs Labs: 10/17/16 04:35 10/17/16 04:35 PT 33.0 Seconds (9.8-13.1) H 10/17/16 04:35 INR 2.9 (0.9-1.2) H 10/17/16 04:35 APTT 60.3 Seconds (25.6-37.1) H 10/17/16 04:35 - Constitutional Appears: Toxic, No Acute Distress - Respiratory Exam Additional comments: tachypnic - Cardiovascular Exam Cardiovascular Exam: +S1, +S2. absent: Tachycardia - GI/Abdominal Exam GI & Abdominal Exam: Distended, Soft, Tenderness. absent: Firm, Guarding, Rigid , Rebound Additional comments: Midline incision with robby with scant drainage Dressing changed NG tube in place with 250cc output over past 24 hours - Neurological Exam Neurological Exam: Alert, Awake Assessment and Plan - Assessment and Plan (Free Text) Assessment: 51yo M with aortic dissection and mesenteric ischemia s/p Ex Lap with examination of entire bowel POD#11 - PICC yesterday, started on TPN - ICU team discussed with Dr. Noguera at [facility] and they are willing to take the patient once he is stable for bowel resection and possible intestinal transplant - No further general surgical intervention at this time - Will discuss plan with Dr. Daniel Hammond PGY-3 <Calixto Watson - Last Filed: 10/17/16 13:51> Subjective - Date & Time of Evaluation Time of Evaluation: 11:00 - Subjective Subjective: Patient was seen and examined at the bedside. Agree with resident's note above. Objective - Vital Signs/Intake and Output Vital Signs (last 24 hours): Temp Pulse Resp BP Pulse Ox 99.1 F 93 H 30 H 164/84 H 98 10/17/16 12:00 10/17/16 12:00 10/17/16 12:00 10/17/16 12:00 10/17/16 12:00 Intake and Output: 10/17/16 10/17/16 06:59 18:59 Intake Total 300 Output Total 5 Balance 295 - Medications Medications: Current Medications Acetaminophen (Tylenol 325mg Tab) 650 mg PO Q6 PRN PRN Reason: Fever >100.4 F Albuterol/Ipratropium (Duoneb 3 Mg/0.5 Mg (3 Ml) Ud) 3 ml INH RQ6 PRN PRN Reason: Shortness of Breath Metronidazole (Flagyl 500mg/100ml Ns) 100 mls @ 100 mls/hr IVPB Q8 [facility] Last Admin: 10/17/16 12:49 Dose: 100 mls/hr Pantoprazole Sodium 40 mg/ (Sodium Chloride) 100 mls @ 20 mls/hr IVPB Q5H [facility] PRN Reason: 8 MG/HR Last Admin: 10/17/16 12:50 Dose: 20 mls/hr Meropenem 500 mg/ Sodium (Chloride) 100 mls @ 100 mls/hr IVPB Q12 [facility] Last Admin: 10/17/16 12:49 Dose: 100 mls/hr Vancomycin HCl 750 mg/ Sodium (Chloride) 250 mls @ 166.667 mls/hr IVPB QOTHERDAY [facility] Last Admin: 10/16/16 04:00 Dose: 166.667 mls/hr Micafungin Sodium 100 mg/ (Sodium Chloride) 100 mls @ 100 mls/hr IVPB DAILY [facility] Last Admin: 10/17/16 13:38 Dose: 100 mls/hr Labetalol HCl (Trandate) 40 mg IVP Q4 [facility] Labetalol HCl (Trandate) 20 mg IVP Q2 PRN PRN Reason: high blood pressure Morphine Sulfate (Morphine) 4 mg IVP Q4 PRN PRN Reason: Pain, severe (8-10) Last Admin: 10/17/16 11:52 Dose: 4 mg Ondansetron HCl (Zofran Inj) 4 mg IVP Q6 PRN PRN Reason: Nausea/Vomiting - Labs Labs: 10/17/16 04:35 10/17/16 04:35 PT 33.0 Seconds (9.8-13.1) H 10/17/16 04:35 INR 2.9 (0.9-1.2) H 10/17/16 04:35 APTT 60.3 Seconds (25.6-37.1) H 10/17/16 04:35
[2016-10-17] MEDS ORDERED: Phytonadione 10 mg/ml Inj (Adult) IV ONE (09:56)
--- NOTE | 2016-10-17 10:21 | CP.PCM.PN ---
Subjective - Date & Time of Evaluation Date of Evaluation: 10/17/16 Time of Evaluation: 10:17 - Subjective Subjective: Patient is more awake he was seen on hemodialysis Blood pressure noted to be slightly elevated Ultrafiltration 3500 mL Potassium bath 2 milliequivalents Bicarbonate bath 34 Sodium bath 138 Chest few rhonchi Heart no rubs Abdomen diffuse tenderness Extremities trace to 1+ edema Impression and plan Acute renal failure patient appears to be improving going to hold except the renal failure is more awake however serum bilirubin continued to rise CT scan noted Questionable mass in the kidney has to be addressed when his condition is improving Objective - Vital Signs/Intake and Output Vital Signs (last 24 hours): Temp Pulse Resp BP Pulse Ox 97.4 F L 82 20 168/73 H 99 10/17/16 08:00 10/17/16 08:00 10/17/16 08:00 10/17/16 08:00 10/17/16 08:00 - Medications Medications: Current Medications Acetaminophen (Tylenol 325mg Tab) 650 mg PO Q6 PRN PRN Reason: Fever >100.4 F Albuterol/Ipratropium (Duoneb 3 Mg/0.5 Mg (3 Ml) Ud) 3 ml INH RQ6 PRN PRN Reason: Shortness of Breath Metronidazole (Flagyl 500mg/100ml Ns) 100 mls @ 100 mls/hr IVPB Q8 [facility] Last Admin: 10/17/16 00:48 Dose: 100 mls/hr Pantoprazole Sodium 40 mg/ (Sodium Chloride) 100 mls @ 20 mls/hr IVPB Q5H [facility] PRN Reason: 8 MG/HR Last Admin: 10/17/16 04:58 Dose: 20 mls/hr Meropenem 500 mg/ Sodium (Chloride) 100 mls @ 100 mls/hr IVPB Q12 [facility] Last Admin: 10/16/16 21:09 Dose: 100 mls/hr Vancomycin HCl 750 mg/ Sodium (Chloride) 250 mls @ 166.667 mls/hr IVPB QOTHERDAY [facility] Last Admin: 10/16/16 04:00 Dose: 166.667 mls/hr Micafungin Sodium 100 mg/ (Sodium Chloride) 100 mls @ 100 mls/hr IVPB DAILY [facility] Last Admin: 10/16/16 17:13 Dose: 100 mls/hr Multivitamins/Vitamin C 10 ml/Chromium/Copper/Manganese/Zinc 3 ml/ Amino Acids/ Electrolytes/Dextrose 1,013 mls @ 50 mls/hr IV .[id number] ONE Stop: 10/17/16 11:15 Last Admin: 10/16/16 17:48 Dose: 50 mls/hr Labetalol HCl (Trandate) 10 mg IVP Q4 [facility] Last Admin: 10/17/16 04:57 Dose: 10 mg Morphine Sulfate (Morphine) 4 mg IVP Q4 PRN PRN Reason: Pain, severe (8-10) Last Admin: 10/16/16 18:54 Dose: 4 mg Ondansetron HCl (Zofran Inj) 4 mg IVP Q6 PRN PRN Reason: Nausea/Vomiting Phytonadione (Vitamin K Inj) 20 mg IV ONCE ONE Stop: 10/17/16 09:57 - Labs Labs: 10/17/16 04:35 10/17/16 04:35 PT 33.0 Seconds (9.8-13.1) H 10/17/16 04:35 INR 2.9 (0.9-1.2) H 10/17/16 04:35 APTT 60.3 Seconds (25.6-37.1) H 10/17/16 04:35 Assessment and Plan (1) Acute renal failure (ARF) Status: Acute
[2016-10-17] MEDS ORDERED: Labetalol 5 mg/ml Inj 20ML IVP PRN (10:22)
--- NOTE | 2016-10-17 10:30 | CP.CCUPN ---
<Kenan Carbone - Last Filed: 10/17/16 14:02> CCU Subjective - Physician Review Events Since Last Encounter (Free Text): 10/17/16 11:37 Patient seen at bedside this morning receiving his dialysis. He is awake, responds to his name. Follows commands. His blood pressure has been running high in the 160-170's/75-90's. - No significant overnight events. - [facility] has been couriered a CD with the imaging of the patient. Awaiting feedback from Dr. Wheat to see if the patient will be accepted for transfer. Consent for transfer has been obtained from the patients sister. 10/17/16 11:55 10/17/16 12:01 Critical Care Time Spent (in minutes): 30 CCU Objective - Vital Signs / Intake & Output Vital Signs (Last 4 hours): Vital Signs Temp Pulse Resp BP Pulse Ox 10/17/16 08:00 97.4 F L 82 20 168/73 H 99 Intake and Output (Last 8hrs): Intake & Output 10/16/16 10/17/16 10/17/16 22:59 06:59 14:59 Intake Total 330 Output Total 250 Balance 80 Intake: IV 40 Intake, Piggyback 240 TPN/PPN 50 Output: Gastric Amount 250 Stomach 250 - Physical Exam Head: Positive for: Atraumatic, Normocephalic Pupils: Positive for: PERRL Conjunctiva: Positive for: Normal. Negative for: Icteric Ears: Positive for: Normal Mouth: Positive for: Moist Mucous Membranes, Other (Dry Blood noticed in oral region. Blood noted via NG tube suction) Nose (External): Positive for: Atraumatic Nose (Internal): Positive for: Normal Inspection Neck: Positive for: Trachea Midline. Negative for: JVD Respiratory/Chest: Positive for: Decreased Breath Sounds, Rhonchi Cardiovascular: Positive for: Regular Rate and Rhythm, Tachycardic. Negative for: Murmurs, Rub Abdomen: Positive for: Tenderness (Generalized tenderness to palpate. Jumana seen intact on mid epigastrium, no pus or discharge noted), Distention, Guarding Genitourinary Male: Positive for: Testicle Swelling Upper Extremity: Positive for: Normal Inspection, Edema Lower Extremity: Positive for: Cyanosis, Swelling, Other (Warm lower extremity b /l). Negative for: CALF TENDERNESS Neurological: Positive for: Other (Patient is able to follow comand and move all extremities.) Skin: Positive for: Warm, Other (+ anasarca). Negative for: Rashes Psychiatric: Positive for: Alert, Other (sedated). Negative for: Oriented x 3 - Medications Active Medications: Active Medications Generic Name Dose Route Start Last Admin Trade Name Freq PRN Reason Stop Dose Admin Acetaminophen 650 mg 10/06/16 15:27 Tylenol 325mg Tab PO Q6 PRN Fever >100.4 F Albuterol/Ipratropium 3 ml 10/16/16 05:44 Duoneb 3 Mg/0.5 Mg (3 Ml) Ud INH RQ6 PRN Shortness of Breath Metronidazole 100 mls @ 100 mls/hr 10/08/16 11:15 10/17/16 00:48 Flagyl 500mg/100ml Ns IVPB 100 mls/hr Q8 RUTHY Administration Pantoprazole Sodium 40 mg/ 100 mls @ 20 mls/hr 10/12/16 10:15 10/17/16 04:58 Sodium Chloride IVPB 20 mls/hr Q5H RUTHY Administration 8 MG/HR Meropenem 500 mg/ Sodium 100 mls @ 100 mls/hr 10/13/16 21:00 10/16/16 21:09 Chloride IVPB 100 mls/hr Q12 RUTHY Administration Vancomycin HCl 750 mg/ Sodium 250 mls @ 166.667 mls/hr 10/15/16 09:00 04:00 Chloride IVPB 166.667 mls/hr QOTHERDAY RUTHY Administration Micafungin Sodium 100 mg/ 100 mls @ 100 mls/hr 10/15/16 14:00 10/16/16 17:13 Sodium Chloride IVPB 100 mls/hr DAILY RUTHY Administration Multivitamins/Vitamin C 10 ml/ 1,013 mls @ 50 mls/hr 10/16/16 15:00 10/16/16 17:48 Chromium/Copper/Manganese/ IV 10/17/16 11:15 50 mls/hr Zinc 3 ml/ Amino Acids/ .[id number] ONE Administration Electrolytes/Dextrose Phytonadione 20 mg/ Dextrose 52 mls @ 104 mls/hr 10/17/16 11:00 IV 10/17/16 11:29 ONCE ONE Labetalol HCl 40 mg 10/17/16 10:21 Trandate IVP Q4 RUTHY Labetalol HCl 20 mg 10/17/16 10:22 Trandate IVP Q2 PRN high blood pressure Morphine Sulfate 4 mg 10/14/16 16:50 10/16/16 18:54 Morphine IVP 4 mg Q4 PRN Administration Pain, severe (8-10) Ondansetron HCl 4 mg 10/06/16 15:27 Zofran Inj IVP Q6 PRN Nausea/Vomiting - Patient Studies Lab Studies: Microbiology Studies 10/13/16 14:10 Blood Culture - Preliminary Blood-Venous NO GROWTH AFTER 3 DAYS 10/13/16 14:10 Blood Culture - Preliminary Blood-Venous NO GROWTH AFTER 3 DAYS Lab Studies 10/17/16 10/17/16 10/17/16 Range/Units 04:35 04:35 04:35 WBC 14.9 H D (4.8-10.8) K/uL RBC 2.87 L (4.40-5.90) Mil/uL Hgb 8.1 L (12.0-18.0) g/dL Hct 25.4 L (35.0-51.0) % MCV 88.5 (80.0-94.0) fl MCH 28.4 (27.0-31.0) pg MCHC 32.0 L (33.0-37.0) g/dL RDW 17.1 H (11.5-14.5) % Plt Count 196 (130-400) K/uL MPV 11.0 (7.2-11.7) fl Neut % (Auto) 77.2 H (50.0-75.0) % Lymph % (Auto) 12.2 L (20.0-40.0) % [place] % (Auto) 9.3 (0.0-10.0) % Eos % (Auto) 0.6 (0.0-4.0) % Baso % (Auto) 0.7 (0.0-2.0) % Neut # 11.5 H (1.8-7.0) K/uL Lymph # 1.8 (1.0-4.3) K/uL [place] # 1.4 H (0.0-0.8) K/uL Eos # 0.1 (0.0-0.7) K/uL Baso # 0.1 (0.0-0.2) K/uL PT 33.0 H (9.8-13.1) Seconds INR 2.9 H (0.9-1.2) APTT 60.3 H (25.6-37.1) Seconds Sodium 141 (132-148) mmol/l Potassium 5.0 (3.6-5.0) MMOL/L Chloride 101 (98-107) mmol/L Carbon Dioxide 23 (22-30) mmol/L Anion Gap 23 H (10-20) BUN 107 H* D (9-20) mg/dl Creatinine 7.3 H (0.8-1.5) mg/dL Est GFR ( Amer) 10 Est GFR (Non-Af Amer) 8 Random Glucose 157 H (75-110) mg/dL Calcium 7.8 L (8.4-10.2) mg/dL Total Bilirubin 9.7 H (0.2-1.3) mg/dl AST 114 H (17-59) U/L ALT 79 H (21-72) U/L Alkaline Phosphatase 111 (38-126) U/L Total Protein 6.8 (6.3-8.2) G/DL Albumin 2.9 L (3.5-5.0) g/dL Globulin 3.9 (2.2-3.9) gm/dL Albumin/Globulin Ratio 0.7 L (1.0-2.1) Laboratory Results - last 24 hr 10/17/16 10/17/16 10/17/16 04:35 04:35 04:35 WBC 14.9 H D RBC 2.87 L Hgb 8.1 L Hct 25.4 L MCV 88.5 MCH 28.4 MCHC 32.0 L RDW 17.1 H Plt Count 196 MPV 11.0 Neut % (Auto) 77.2 H Lymph % (Auto) 12.2 L [place] % (Auto) 9.3 Eos % (Auto) 0.6 Baso % (Auto) 0.7 Neut # 11.5 H Lymph # 1.8 [place] # 1.4 H Eos # 0.1 Baso # 0.1 PT 33.0 H INR 2.9 H APTT 60.3 H Sodium 141 Potassium 5.0 Chloride 101 Carbon Dioxide 23 Anion Gap 23 H BUN 107 H* D Creatinine 7.3 H Est GFR ( Amer) 10 Est GFR (Non-Af Amer) 8 Random Glucose 157 H Calcium 7.8 L Total Bilirubin 9.7 H AST 114 H ALT 79 H Alkaline Phosphatase 111 Total Protein 6.8 Albumin 2.9 L Globulin 3.9 Albumin/Globulin Ratio 0.7 L Assessment/Plan - Assessment and Plan (Free Text) Assessment: 51 YO M w/ PMH Type A aortic aneursym repair 2 weeks ago at [facility] by Dr. Wheat, cocaine abuse had presented to the ER for abdominal pain w/ nausea and emesis. Pt was found to have evidence of mesenteric ischemia/ infarction on CT and a emergent exploratory laprotamy was done and they were unable to resect the bowl because it extended from ligament of teres to the transverse colon. Have spoke to [facility] they, they will review the imaging that was sent to them, and possibly accept the patient for transfer. 1) Septic Shock, secondary to ischemic bowl - Spoke with Dr. Noguera at the [facility]. They are willing to accept the patient of the patient for bowl resection and possible intestinal transplant, if the patient is safe for transfer. Will speak to [facility] regarding his thoracoabdominal aortic dissection, to see if he is a candidate for repair. 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 - Have spoke to [facility], the imaging studies have been couriered today, Dr. Wheat will review the imaging studies, and let us know today if patient is accepted for transfer for possible aortic dissection repair. - WBC has trended down to 14.9 - Lactic acid has trended down to 2.6. Procalcitonin has trended down to 43 - Patient has been extubated and is currently on a venti mask saturating at 98%. - Patient is off of pressers and blood pressure remains stable - Argatroban was held due to GI bleed noticed via NG tube. Today PTT is 36. Continue serial PTT. Today 2 more units of FFP have been ordered and 20 of Vit K has been ordered. - Pain controlled with Morphine PRN. - Cont w/ Cefapime, Microfungin, Flagyl, and Vancomycin 2)Recent aortic aneurysm rupture repair - Have spoke to [facility], the imaging studies have been couriered today, Dr. Wheat will review the imaging studies, and let us know today if patient is accepted for transfer for possible aortic dissection repair. - Most recent CT showed thracoabdominal aortic dissection. - Hemodynamically stable 3) Mesentric ischemia - Most likely secondary to thracoabdominal aortic dissection. - PICC line has been placed; TPN will be started today 3) Hypertension - Blood pressure this morning 168/73, - Medication dosage has been increased to Labetolol 40 mg Q4. Labetolol 20mg Q2 PRN - Monitor BP 4.) Elevated liver enzymes most likely secondary to mesenteric ischemia - AST:114, ALT:79:-> trending down - Total bilirubin: 9.7, Is trending up - GI consult appreciated - Continue to monitor 5. Renal failure secondary to decrease perfusion - Receiving HD this morning - BUN:107, Creatinine:7.3 - F/U w/ CMP, Mg+, Phos - Dr. Zavaleta on consult 6) A Fib ( Resolved) - Resolved after receiving amiodarone. - Cardio consult appreciated 7) Upper GI Bleed - APTT today was 60.3. PT:33. INR: 2.9 - Blood noted via NG suction - Continue IV protonix - Hold Argatroban. - Continue serial PTT - Give 2 more units of FFP and 20 of Vit K. 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 Monitor PTT - SCD <Corey Robledo - Last Filed: 10/17/16 17:25> Assessment/Plan - Assessment and Plan (Free Text) Plan: Attestation: Patient seen and examined at the bedside with Resident Dr. Ros Carbone; and I agree with his outline of plans and management as documented and discussed on AM rounds reflecting my review of all applicable clinical data, and participation in the care of the patient throughout the day in ICU; today, October 17, 2016.
[2016-10-17] MEDS ORDERED: Phytonadione 20 MG in Dextrose 5% In Water 50 ML IV ONE (11:00)
[2016-10-17] MEDS: Morphine 4 MG/ML VIAL IVP PRN (11:52)
--- NOTE | 2016-10-17 11:54 | CP.PCM.PN ---
<Deni Wright - Last Filed: 10/17/16 14:46> Subjective - Date & Time of Evaluation Date of Evaluation: 10/17/16 Time of Evaluation: 11:00 Objective - Vital Signs/Intake and Output Vital Signs (last 24 hours): Temp Pulse Resp BP Pulse Ox 99.1 F 92 H 30 H 200/112 H 98 10/17/16 12:00 10/17/16 14:06 10/17/16 14:00 10/17/16 14:06 10/17/16 14:00 Intake and Output: 10/17/16 10/17/16 06:59 18:59 Intake Total 440 Output Total 10 Balance 430 - Medications Medications: Current Medications Acetaminophen (Tylenol 325mg Tab) 650 mg PO Q6 PRN PRN Reason: Fever >100.4 F Albuterol/Ipratropium (Duoneb 3 Mg/0.5 Mg (3 Ml) Ud) 3 ml INH RQ6 PRN PRN Reason: Shortness of Breath Metronidazole (Flagyl 500mg/100ml Ns) 100 mls @ 100 mls/hr IVPB Q8 [facility] Last Admin: 10/17/16 12:49 Dose: 100 mls/hr Pantoprazole Sodium 40 mg/ (Sodium Chloride) 100 mls @ 20 mls/hr IVPB Q5H RUTHY PRN Reason: 8 MG/HR Last Admin: 10/17/16 12:50 Dose: 20 mls/hr Meropenem 500 mg/ Sodium (Chloride) 100 mls @ 100 mls/hr IVPB Q12 RUTHY Last Admin: 10/17/16 12:49 Dose: 100 mls/hr Vancomycin HCl 750 mg/ Sodium (Chloride) 250 mls @ 166.667 mls/hr IVPB QOTHERDAY [facility] Last Admin: 10/17/16 13:45 Dose: 166.667 mls/hr Micafungin Sodium 100 mg/ (Sodium Chloride) 100 mls @ 100 mls/hr IVPB DAILY [facility] Last Admin: 10/17/16 13:38 Dose: 100 mls/hr Labetalol HCl (Trandate) 40 mg IVP Q4 [facility] Last Admin: 10/17/16 14:06 Dose: 40 mg Labetalol HCl (Trandate) 20 mg IVP Q2 PRN PRN Reason: high blood pressure Morphine Sulfate (Morphine) 4 mg IVP Q4 PRN PRN Reason: Pain, severe (8-10) Last Admin: 10/17/16 11:52 Dose: 4 mg Ondansetron HCl (Zofran Inj) 4 mg IVP Q6 PRN PRN Reason: Nausea/Vomiting - Labs Labs: 10/17/16 04:35 10/17/16 04:35 PT 33.0 Seconds (9.8-13.1) H 10/17/16 04:35 INR 2.9 (0.9-1.2) H 10/17/16 04:35 APTT 60.3 Seconds (25.6-37.1) H 10/17/16 04:35 Assessment and Plan (1) Acute diffuse ischemia of intestine Status: Acute (2) Acute renal failure Status: Acute (3) Hx of CABG Status: Acute (4) CAD (coronary artery disease) Status: Acute (5) Shock liver Status: Acute (6) Severe sepsis Status: Acute <Jasmyne Castro - Last Filed: 10/17/16 16:52> Subjective - Date & Time of Evaluation Date of Evaluation: 10/17/16 Time of Evaluation: 11:00 - Subjective Subjective: No fever remains on Venti mask and tolerating this lethargic, no verbal output , opens eyes to verbal stimu;li moved extremities when asked Noted blood in NGT Objective - Vital Signs/Intake and Output Vital Signs (last 24 hours): Temp Pulse Resp BP Pulse Ox 97.4 F L 80 29 H 173/76 H 96 10/17/16 08:00 10/17/16 10:00 10/17/16 10:00 10/17/16 10:00 10/17/16 10:00 Intake and Output: 10/17/16 10/17/16 06:59 18:59 Intake Total 210 Output Total 5 Balance 205 - Medications Medications: Current Medications Acetaminophen (Tylenol 325mg Tab) 650 mg PO Q6 PRN PRN Reason: Fever >100.4 F Albuterol/Ipratropium (Duoneb 3 Mg/0.5 Mg (3 Ml) Ud) 3 ml INH RQ6 PRN PRN Reason: Shortness of Breath Metronidazole (Flagyl 500mg/100ml Ns) 100 mls @ 100 mls/hr IVPB Q8 [facility] Last Admin: 10/17/16 00:48 Dose: 100 mls/hr Pantoprazole Sodium 40 mg/ (Sodium Chloride) 100 mls @ 20 mls/hr IVPB Q5H [facility]UTHY PRN Reason: 8 MG/HR Last Admin: 10/17/16 04:58 Dose: 20 mls/hr Meropenem 500 mg/ Sodium (Chloride) 100 mls @ 100 mls/hr IVPB Q12 [facility] Last Admin: 10/16/16 21:09 Dose: 100 mls/hr Vancomycin HCl 750 mg/ Sodium (Chloride) 250 mls @ 166.667 mls/hr IVPB QOTHERDAY [facility] Last Admin: 10/16/16 04:00 Dose: 166.667 mls/hr Micafungin Sodium 100 mg/ (Sodium Chloride) 100 mls @ 100 mls/hr IVPB DAILY [facility] Last Admin: 10/16/16 17:13 Dose: 100 mls/hr Labetalol HCl (Trandate) 40 mg IVP Q4 [facility] Labetalol HCl (Trandate) 20 mg IVP Q2 PRN PRN Reason: high blood pressure Morphine Sulfate (Morphine) 4 mg IVP Q4 PRN PRN Reason: Pain, severe (8-10) Last Admin: 10/17/16 11:52 Dose: 4 mg Ondansetron HCl (Zofran Inj) 4 mg IVP Q6 PRN PRN Reason: Nausea/Vomiting - Labs Labs: - Constitutional Appears: Chronically Ill On Venti mask - Head Exam Head Exam: NORMAL INSPECTION, NORMOCEPHALIC - Eye Exam Eye Exam: EOMI, Normal appearance Pupil Exam: NORMAL ACCOMODATION - ENT Exam ENT Exam: Mucous Membranes Dry, Normal External Ear Exam - Neck Exam Neck Exam: Full ROM. absent: Meningismus - Respiratory Exam Respiratory Exam: Rales, Rhonchi Additional comments: On Venti Mask - Cardiovascular Exam Cardiovascular Exam: REGULAR RHYTHM, +S1, +S2 - GI/Abdominal Exam GI & Abdominal Exam: Distended, Tenderness - Extremities Exam Additional comments: moves all extremities decrease periph pulses DP - Neurological Exam Neurological Exam: Awake Additional comments: lethargic follows simple commands no verbal output but seem to understand simple questions - Psychiatric Exam Psychiatric exam: Flat Affect - Skin Skin Exam: Dry, Pallor Assessment and Plan (1) Acute diffuse ischemia of intestine Status: Acute (2) Septic shock Status: Acute (3) Acute renal failure Status: Acute (4) Shock liver Status: Acute (5) A-fib Status: Acute (6) Thrombocytopenia Status: Acute (7) Aortic dissection, thoracoabdominal Status: Acute - Assessment and Plan (Free Text) Assessment: 51 y/o male with PMH Type A aortic aneurysm repair 2 weeks ago at [facility] by Dr. Wheat , back pain, HTN,cocaine abuse history ( as per friends) presented with severe sharp abdominal pain associated with nausea and emesis for two days. In ER, pt found to have intractable abdominal pain, disproportionate to exam. CT showed evidence of mesenteric ischemia/infarction. Seen by surgery in ER and taken to OR for emergent exploratory laparatomy by Dr. Sanchez that showed ischemic small bowel and right colon. No surgical intervention could be done, the patient was closed up and transferred to ICU for medical care. He was intubated for airway support was placed on on Fentanyl drip for sedation and pain control . He was weaned off and extubated and at present on Venturi mask afebrile, drowsy , off Fentanyl drip , moaning ,following simple commands. CTA abdomen showed ; 1. Apparent resolution of pneumatosis intestinalis, central mesenteric venous gas,superior mesenteric venous gas, as well as portal venous gas. Small and large bowel are limited evaluation due to lack of oral contrast administration this patient. Enteric colitis is not completely excluded. Pancolitis is a possibility as discussed above. No free intrarenal gas. Limited abdominal and pelvic ascites. 2. Nodular changes related to the right kidney are stable and remain potentially suspicious for solid nodule. 3. 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 At and below the level of the celiac artery origin, artifacts obscure evaluation of the abdominal aorta. Consider follow-up chest and abdomen CT with oral and intravenous contrast for greater characterization. Poor Prognosis. Family in [place] notified of pt's condition 1.Septic shock secondary to ischemic bowel, with Multi-organ Failure extubated on Venti mask saturating 98% , afebrile off Fentanyl drip. on Morphine IV for pain control off levophed drip and with stable BP Critically ill with very poor prognosis General surgery, Vascular Sx, GI, pulmonary, ID on consult Continue Meropenem, Micafungin , Flagyl and Vancomycin 2. Thoracoabdominal Aortic Dissection, Recent Type A aortic aneurysm repair at [facility] CTA abd and pelvis showed Thoracoabdominal aortic dissection involving distal thoracic segment and proximal aortic segment. [facility] surgeon informed Vascular surgery consulted- discussed case with Dr Armendariz- rec to transfer pt back to [facility] for higher level of care. Contacted Dr Wheat from [facility]- he will review imaging and will get back to us re: transfer CTA of Chest 1. There is a type A aortic dissection which appears to arise approximately at the level of the right brachiocephalic artery takeoff. This extends into the right brachiocephalic artery and questionably into the base of the left subclavian artery. Additionally, dissection extends into the descending thoracic aorta as well as the upper abdominal aorta. This appears to resolve approximately at the level of the celiac trunk. Major thoracic and abdominal aortic branches appear adequately perfused. 2. There is a concern for possible thrombus within the right common iliac artery and extending into the right external iliac artery. This appears resolved by the level of the common femoral artery. 3. There appears to have been prior repair at the level of the aortic root. 4. Small pericardial effusion measuring 11 mm on series 5, image 128. 5. There are multifocal patchy opacities throughout both lungs with a mid upper lung zone predominance. These do demonstrate air bronchograms are most compatible to multifocal pneumonia. 6. Small bilateral pleural effusions with associated bibasilar compressive atelectasis. 7. There is reflux of contrast into the IVC and hepatic vein suggesting a degree of right heart failure. 8. Kidneys are unremarkable aside from an isodense lesion at the right midpole measuring 1.4 CM. This is incompletely characterized however is concerning for possible solid lesion. If indicated followup can be obtained. 9. There is mild ascites in both paracolic gutters. There is diffuse anasarca. 10. Diffusely fluid-filled small bowel loops without definite obstruction. Previously seen bowel pneumatosis is no longer identified. 11. There is diffuse fatty infiltration involving the wall of the colon. This is nonspecific but can be seen in long-standing inflammatory bowel disease. 3. Ischemic/Necrotic bowel Most likely secondary to hypoperfusion due to aortic dissection s/p exploratory laparatomy by general surgery showing necrotic small bowel and right colon No surgical intervention possible at this time Supportive care CTA abd and pelvis read as pancolitis. Surgery informed and following Heparin was stopped due to thrombocytopenia and possibility of HIT. Argatroban hepatically dosed was started and stopped due to bleeding from NGT and ETT Poor prognosis PICC line placed for TPN- will start today 4.Elevated transaminases likely Shock Liver improving NGT in place with bloody secretions 5. GOPI likely due to decrease perfusion Pt started on Hemodialysis on 10/08 Nephrology consult - Dr Claudia Law HD cath placed to right groin cont HD 6. Pt did not have CABG-- clarified with surgeon Cardio consult : Dr Putnam Echo showed normal EF 7.Paroxysmal A Fib with RVR episode resolved, now back in SR received Amiodarone, off drip Cardio consulted 8. Thrombocytopenia-- improving Heparin discontinued HIT antibody:weakly + Bloody secretions noted from NGT and ETT. Held Argatroban 9. Acute blood loss anemia/ UGI bleed With bloody output from NGTs on protonix drip monitor for now GI on consult 10. Coagulopathy monitor VIT K FFP transfusion 11. Hypertension started labetalol IV 11.DVT prophylaxis SCD
[2016-10-17] MEDS: Meropenem 500 MG in Sodium Chloride 0.9% 100 ML IVPB SCH ×2 (12:49→22:45)
--- NOTE | 2016-10-17 12:54 | CP.PCM.PN ---
Subjective - Date & Time of Evaluation Date of Evaluation: 10/17/16 Time of Evaluation: 12:52 - Subjective Subjective: D Note- Pt. seen and examined today in ICU undergoing his HD at bedside. remains lethargic. Opens his eyes when his name is called but does not answer my questions. as per ICU team pt. to be t[place]fere[place] to [place] to the vascular surgeon that performed his aortic aneurysm surgery 2 weeks ago . no new events overnight as per nurse and ICU team. Objective - Vital Signs/Intake and Output Vital Signs (last 24 hours): Temp Pulse Resp BP Pulse Ox 99.1 F 93 H 30 H 164/84 H 98 10/17/16 12:00 10/17/16 12:00 10/17/16 12:00 10/17/16 12:00 10/17/16 12:00 Intake and Output: 10/17/16 10/17/16 06:59 18:59 Intake Total 300 Output Total 5 Balance 295 - Medications Medications: Current Medications Acetaminophen (Tylenol 325mg Tab) 650 mg PO Q6 PRN PRN Reason: Fever >100.4 F Albuterol/Ipratropium (Duoneb 3 Mg/0.5 Mg (3 Ml) Ud) 3 ml INH RQ6 PRN PRN Reason: Shortness of Breath Metronidazole (Flagyl 500mg/100ml Ns) 100 mls @ 100 mls/hr IVPB Q8 [facility] Last Admin: 10/17/16 00:48 Dose: 100 mls/hr Pantoprazole Sodium 40 mg/ (Sodium Chloride) 100 mls @ 20 mls/hr IVPB Q5H RUTHY PRN Reason: 8 MG/HR Last Admin: 10/17/16 04:58 Dose: 20 mls/hr Meropenem 500 mg/ Sodium (Chloride) 100 mls @ 100 mls/hr IVPB Q12 RUTH[facility] Last Admin: 10/16/16 21:09 Dose: 100 mls/hr Vancomycin HCl 750 mg/ Sodium (Chloride) 250 mls @ 166.667 mls/hr IVPB QOTHERDAY [facility] Last Admin: 10/16/16 04:00 Dose: 166.667 mls/hr Micafungin Sodium 100 mg/ (Sodium Chloride) 100 mls @ 100 mls/hr IVPB DAILY [facility] Last Admin: 10/16/16 17:13 Dose: 100 mls/hr Labetalol HCl (Trandate) 40 mg IVP Q4 [facility] Labetalol HCl (Trandate) 20 mg IVP Q2 PRN PRN Reason: high blood pressure Morphine Sulfate (Morphine) 4 mg IVP Q4 PRN PRN Reason: Pain, severe (8-10) Last Admin: 10/17/16 11:52 Dose: 4 mg Ondansetron HCl (Zofran Inj) 4 mg IVP Q6 PRN PRN Reason: Nausea/Vomiting - Labs Labs: 10/17/16 04:35 10/17/16 04:35 PT 33.0 Seconds (9.8-13.1) H 10/17/16 04:35 INR 2.9 (0.9-1.2) H 10/17/16 04:35 APTT 60.3 Seconds (25.6-37.1) H 10/17/16 04:35 - Additional Findings Additional findings: - Constitutional Appears: Toxic - Head Exam Head Exam: ATRAUMATIC - ENT Exam Additional comments: NGT- dark output - Respiratory Exam Additional comments: decreased breath sounds at bases no wheezing - Cardiovascular Exam Cardiovascular Exam: RRR, +S1, +S2 - GI/Abdominal Exam Additional comments: slightly less distended , hypoactivve BS midabdominal surgical site clean/ no discharge, no erythema tenderness to palp - Extremities Exam Extremities Exam: 2+ pitting edema b/l LE and upper ext - Neurological Exam Additional comments: awakens when name is called and moans Laboratory Results - last 72 hr 10/15/16 10/15/16 10/15/16 04:20 04:20 04:20 WBC RBC Hgb Hct MCV MCH MCHC RDW Plt Count MPV Neut % (Auto) Lymph % (Auto) [place] % (Auto) Eos % (Auto) Baso % (Auto) Neut # Lymph # [place] # Eos # Baso # Neutrophils % (Manual) Band Neutrophils % Lymphocytes % (Manual) Monocytes % (Manual) Nucleated RBC % Platelet Estimate Polychromasia Anisocytosis (manual) PT 37.2 H D INR 3.2 H APTT 72.0 H D pCO2 pO2 HCO3 ABG pH ABG Total CO2 ABG O2 Saturation ABG O2 Content ABG Base Excess ABG Hemoglobin ABG Carboxyhemoglobin POC ABG HHb (Measured) ABG Methemoglobin ABG O2 Capacity Quirino Test A-a O2 Difference Hgb O2 Saturation Vent Mode FiO2 Sodium 141 Potassium 5.6 H Chloride 102 Carbon Dioxide 21 L Anion Gap 24 H BUN 100 H* D Creatinine 7.9 H* D Est GFR ( Amer) 9 Est GFR (Non-Af Amer) 7 Random Glucose 125 H Lactic Acid Calcium 8.0 L Total Bilirubin 6.9 H AST 128 H D ALT 92 H Alkaline Phosphatase 127 H Total Protein 6.7 Albumin 2.8 L Globulin 4.0 H Albumin/Globulin Ratio 0.7 L Procalcitonin 43.44 H HIV 1&2 Antibody Screen 10/15/16 10/15/16 10/15/16 04:20 04:35 05:50 WBC 21.7 H RBC 3.30 L Hgb 9.2 L Hct 29.0 L MCV 87.8 MCH 28.0 MCHC 31.9 L RDW 16.8 H Plt Count 130 MPV 11.5 Neut % (Auto) 81.4 H Lymph % (Auto) 12.1 L [place] % (Auto) 6.0 Eos % (Auto) 0.3 Baso % (Auto) 0.2 Neut # 17.6 H Lymph # 2.6 [place] # 1.3 H Eos # 0.1 Baso # 0.1 Neutrophils % (Manual) Band Neutrophils % Lymphocytes % (Manual) Monocytes % (Manual) Nucleated RBC % Platelet Estimate Polychromasia Anisocytosis (manual) PT INR APTT pCO2 39 pO2 96 HCO3 24.0 ABG pH 7.39 ABG Total CO2 24.8 ABG O2 Saturation 99.3 H ABG O2 Content 13.1 L ABG Base Excess -1.2 ABG Hemoglobin 9.6 L ABG Carboxyhemoglobin 1.7 H POC ABG HHb (Measured) 0.7 ABG Methemoglobin 1.9 ABG O2 Capacity 13.2 L Quirino Test Yes A-a O2 Difference 212.0 Hgb O2 Saturation 95.7 Vent Mode 50% vm FiO2 50.0 Sodium Potassium Chloride Carbon Dioxide Anion Gap BUN Creatinine Est GFR ( Amer) Est GFR (Non-Af Amer) Random Glucose Lactic Acid 2.6 H Calcium Total Bilirubin AST ALT Alkaline Phosphatase Total Protein Albumin Globulin Albumin/Globulin Ratio Procalcitonin HIV 1&2 Antibody Screen 10/15/16 10/16/16 10/16/16 14:31 04:20 04:20 WBC 32.4 H RBC 3.66 L Hgb 10.0 L Hct 32.6 L MCV 88.9 MCH 27.4 MCHC 30.8 L RDW 17.1 H Plt Count 194 MPV 10.9 Neut % (Auto) 87.0 H Lymph % (Auto) 6.3 L [place] % (Auto) 6.3 Eos % (Auto) 0.1 Baso % (Auto) 0.3 Neut # 28.2 H Lymph # 2.1 [place] # 2.0 H Eos # 0.0 Baso # 0.1 Neutrophils % (Manual) 84 H Band Neutrophils % 3 H Lymphocytes % (Manual) 7 L Monocytes % (Manual) 6 Nucleated RBC % 13 H Platelet Estimate Normal Polychromasia Slight Anisocytosis (manual) Slight PT 36.0 H INR 3.1 H APTT 57.6 H D pCO2 pO2 HCO3 ABG pH ABG Total CO2 ABG O2 Saturation ABG O2 Content ABG Base Excess ABG Hemoglobin ABG Carboxyhemoglobin POC ABG HHb (Measured) ABG Methemoglobin ABG O2 Capacity Quirino Test A-a O2 Difference Hgb O2 Saturation Vent Mode FiO2 Sodium Potassium Chloride Carbon Dioxide Anion Gap BUN Creatinine Est GFR ( Amer) Est GFR (Non-Af Amer) Random Glucose Lactic Acid Calcium Total Bilirubin AST ALT Alkaline Phosphatase Total Protein Albumin Globulin Albumin/Globulin Ratio Procalcitonin HIV 1&2 Antibody Screen Negative 10/16/16 10/17/16 10/17/16 04:20 04:35 04:35 WBC 14.9 H D RBC 2.87 L Hgb 8.1 L Hct 25.4 L MCV 88.5 MCH 28.4 MCHC 32.0 L RDW 17.1 H Plt Count 196 MPV 11.0 Neut % (Auto) 77.2 H Lymph % (Auto) 12.2 L [place] % (Auto) 9.3 Eos % (Auto) 0.6 Baso % (Auto) 0.7 Neut # 11.5 H Lymph # 1.8 [place] # 1.4 H Eos # 0.1 Baso # 0.1 Neutrophils % (Manual) Band Neutrophils % Lymphocytes % (Manual) Monocytes % (Manual) Nucleated RBC % Platelet Estimate Polychromasia Anisocytosis (manual) PT 33.0 H INR 2.9 H APTT 60.3 H pCO2 pO2 HCO3 ABG pH ABG Total CO2 ABG O2 Saturation ABG O2 Content ABG Base Excess ABG Hemoglobin ABG Carboxyhemoglobin POC ABG HHb (Measured) ABG Methemoglobin ABG O2 Capacity Quirino Test A-a O2 Difference Hgb O2 Saturation Vent Mode FiO2 Sodium 140 Potassium 5.0 Chloride 99 Carbon Dioxide 19 L Anion Gap 27 H BUN 58 H Creatinine 5.3 H Est GFR ( Amer) 14 Est GFR (Non-Af Amer) 12 Random Glucose 80 Lactic Acid Calcium 8.5 Total Bilirubin AST ALT Alkaline Phosphatase Total Protein Albumin Globulin Albumin/Globulin Ratio Procalcitonin HIV 1&2 Antibody Screen 10/17/16 04:35 WBC RBC Hgb Hct MCV MCH MCHC RDW Plt Count MPV Neut % (Auto) Lymph % (Auto) [place] % (Auto) Eos % (Auto) Baso % (Auto) Neut # Lymph # [place] # Eos # Baso # Neutrophils % (Manual) Band Neutrophils % Lymphocytes % (Manual) Monocytes % (Manual) Nucleated RBC % Platelet Estimate Polychromasia Anisocytosis (manual) PT INR APTT pCO2 pO2 HCO3 ABG pH ABG Total CO2 ABG O2 Saturation ABG O2 Content ABG Base Excess ABG Hemoglobin ABG Carboxyhemoglobin POC ABG HHb (Measured) ABG Methemoglobin ABG O2 Capacity Quirino Test A-a O2 Difference Hgb O2 Saturation Vent Mode FiO2 Sodium 141 Potassium 5.0 Chloride 101 Carbon Dioxide 23 Anion Gap 23 H BUN 107 H* D Creatinine 7.3 H Est GFR ( Amer) 10 Est GFR (Non-Af Amer) 8 Random Glucose 157 H Lactic Acid Calcium 7.8 L Total Bilirubin 9.7 H AST 114 H ALT 79 H Alkaline Phosphatase 111 Total Protein 6.8 Albumin 2.9 L Globulin 3.9 Albumin/Globulin Ratio 0.7 L Procalcitonin HIV 1&2 Antibody Screen Microbiology 10/13/16 14:10 Blood-Venous Blood Culture - Preliminary NO GROWTH AFTER 3 DAYS 10/13/16 14:10 Blood-Venous Blood Culture - Preliminary NO GROWTH AFTER 3 DAYS 10/13/16 15:35 Urine,Taylor Urine Culture - Final No Growth (<1,000 CFU/ML) 10/13/16 15:35 Trachasp Gram Stain - Final 10/13/16 15:35 Trachasp Sputum Culture - Final Yeast Species 10/06/16 11:10 Nose MRSA Culture (Admit) - Final MRSA NOT DETECTED Assessment and Plan (1) Acute diffuse ischemia of intestine Status: Acute (2) Acute renal failure Status: Acute (3) Hx of CABG Status: Acute (4) CAD (coronary artery disease) Status: Acute (5) Shock liver Status: Acute (6) Severe sepsis Status: Acute - Assessment and Plan (Free Text) Assessment: A/P- 51 year old male with HTN s/p disected aortic aneurysm repair 2 weeks ago at [facility] was admitted on 10/06/2016 with abd pain found to have mesenteric ischemia, non operable and had remained on the vent since post ex lap in ICU and has developed ARF on emergent HD , sepsis, shock liver, respiratory failure and septic. s/p extubation 3 days ago afebrile leukocytosis trending down today. blood cx- neg x 2 urine cx- neg trach asp cx- yeast species 1.mesenteric ischemia 2. ARF on HD 3.shock liver 4.sepsis 5.respiratory failure 6. s/p thoracoabdominal aortic aneurysm disection repair 2 weeks ago at [facility] 7. leukocytosis plan- advise to continue with IV meropenem day #5. advise to continue with HD dose IV vancomycin as well. continue with IV flagyl as well. advise to continue with antifungal as well, day #3. Prognosis poor. ICU time 45 minutes.
[2016-10-17] MEDS: Micafungin 100 MG in Sodium Chloride 0.9% 100 ML IVPB SCH (13:38)
--- NOTE | 2016-10-17 14:51 | CP.PCM.PN ---
Subjective - Date & Time of Evaluation Date of Evaluation: 10/17/16 Time of Evaluation: 14:44 - Subjective Subjective: patient with altered mental status, moaning incomprehensibly Objective - Vital Signs/Intake and Output Vital Signs (last 24 hours): Temp Pulse Resp BP Pulse Ox 99.1 F 92 H 30 H 200/112 H 98 10/17/16 12:00 10/17/16 14:06 10/17/16 14:00 10/17/16 14:06 10/17/16 14:00 Intake and Output: 10/17/16 10/17/16 06:59 18:59 Intake Total 440 Output Total 10 Balance 430 - Medications Medications: Current Medications Acetaminophen (Tylenol 325mg Tab) 650 mg PO Q6 PRN PRN Reason: Fever >100.4 F Albuterol/Ipratropium (Duoneb 3 Mg/0.5 Mg (3 Ml) Ud) 3 ml INH RQ6 PRN PRN Reason: Shortness of Breath Metronidazole (Flagyl 500mg/100ml Ns) 100 mls @ 100 mls/hr IVPB Q8 [facility] Last Admin: 10/17/16 12:49 Dose: 100 mls/hr Pantoprazole Sodium 40 mg/ (Sodium Chloride) 100 mls @ 20 mls/hr IVPB Q5H [facility]UTHY PRN Reason: 8 MG/HR Last Admin: 10/17/16 12:50 Dose: 20 mls/hr Meropenem 500 mg/ Sodium (Chloride) 100 mls @ 100 mls/hr IVPB Q12 [facility] Last Admin: 10/17/16 12:49 Dose: 100 mls/hr Vancomycin HCl 750 mg/ Sodium (Chloride) 250 mls @ 166.667 mls/hr IVPB QOTHERDAY [facility] Last Admin: 10/17/16 13:45 Dose: 166.667 mls/hr Micafungin Sodium 100 mg/ (Sodium Chloride) 100 mls @ 100 mls/hr IVPB DAILY [facility] Last Admin: 10/17/16 13:38 Dose: 100 mls/hr Labetalol HCl (Trandate) 40 mg IVP Q4 [facility] Last Admin: 10/17/16 14:06 Dose: 40 mg Labetalol HCl (Trandate) 20 mg IVP Q2 PRN PRN Reason: high blood pressure Morphine Sulfate (Morphine) 4 mg IVP Q4 PRN PRN Reason: Pain, severe (8-10) Last Admin: 10/17/16 11:52 Dose: 4 mg Ondansetron HCl (Zofran Inj) 4 mg IVP Q6 PRN PRN Reason: Nausea/Vomiting - Labs Labs: 10/17/16 04:35 10/17/16 04:35 PT 33.0 Seconds (9.8-13.1) H 10/17/16 04:35 INR 2.9 (0.9-1.2) H 10/17/16 04:35 APTT 60.3 Seconds (25.6-37.1) H 10/17/16 04:35 - Head Exam Head Exam: ATRAUMATIC - Eye Exam Eye Exam: Scleral icterus - ENT Exam ENT Exam: Mucous Membranes Moist - Neck Exam Neck Exam: Full ROM - Respiratory Exam Respiratory Exam: Decreased Breath Sounds. absent: Accessory Muscle Use - Cardiovascular Exam Cardiovascular Exam: REGULAR RHYTHM, RRR - GI/Abdominal Exam GI & Abdominal Exam: Distended, Firm, Hypoactive Bowel Sounds - Extremities Exam Extremities Exam: Pedal Edema - Neurological Exam Neurological Exam: Altered - Skin Skin Exam: Warm Assessment and Plan - Assessment and Plan (Free Text) Plan: Patient remained essentially status quo. He remains critically ill. Hypertension is noted. Abdomen is distended and somewhat firm. Lower extremities are warm with no signs of acute limb threatening ischemia clinically. Continue current care. No immediate vascular surgery issues. Pending transfer to [facility].
--- NOTE | 2016-10-17 15:08 | VASCULAR ---
PROCEDURE: Date of procedure: 10/16/2016 Procedure: 1. Placement of a right arm PICC with ultrasound and fluoroscopic guidance, CPT 12975 2. PICC tip confirmation with spot radiograph and is in the superior vena cava Medications: 1 percent lidocaine Total Fluoro time: 8 seconds Radiation: 0.99 MGy EBL: 2 cc HISTORY: Poor venous access, bowel ischemia. TECHNIQUE: Following informed consent and procedure time-out, the patient was placed supine on the interventional table and the right arm prepped and draped in the usual sterile fashion. Ultrasound showed a patent and compressible right brachial vein. The basilic vein was small. After the skin was anesthetized with lidocaine, the brachial vein was accessed with micro micropuncture technique using ultrasound guidance. A guidewire was then advanced under fluoroscopic guidance into the superior vena cava. An image documenting ultrasound guidance for vascular access was permanently saved. The length of the single-lumen 4 [place]ic PICC was trimmed to 37 centimeters and advanced through a peel-away sheath. The PICC was position with tip of PICC confirm a spot radiograph the superior vena cava. The PICC was secured to the patient's skin. The PICC was flushed. A biopatch and sterile dressing was applied. IMPRESSION: Placement of a single-lumen 4 Icelandic PICC trimmed to 37 centimeters via right brachial vein. The tip of the PICC is confirmed with spot radiograph and is in the superior vena cava.
[2016-10-17] MEDS ORDERED: MAGNESIUM SULFATE IV ONE ×2 (15:15→15:30)
[2016-10-17] MEDS ORDERED: CALCIUM GLUCONATE IV ONE ×2 (15:15→15:30)
[2016-10-17] MEDS ORDERED: SODIUM ACETATE IV ONE ×2 (15:15→15:30)
[2016-10-17] MEDS ORDERED: [UNRECOGNIZED DRUG - OTHER] IV ONE (15:15)
[2016-10-17] MEDS ORDERED: [UNRECOGNIZED DRUG - OTHER] IV ONE (15:30)
[2016-10-17] MEDS: Labetalol 5 mg/ml Inj 20ML IVP PRN (15:35)
--- NOTE | 2016-10-17 16:08 | CP.PCM.PCO ---
<Kenan Carbone - Last Filed: 10/17/16 15:55> Progress Note - Review of Symptoms Events since last encounter: Patient will be dialysed tomorrow. Patient will be receiving a total of 2 units every 6 hours of FFP, with a total of 6 units. Repeat Pt/INR, PTT. Will be ordered for tomorrow morning. <VenkatCorey Sydnee - Last Filed: 10/17/16 17:59> Physician Communication Note - Physician Communication Note Physician Communication Note: Attestation: Attending/Attestation - Attestation I have personally seen and examined this patient.: Yes I have fully participated in the care of the patient.: Yes I have reviewed all pertinent clinical information: Yes Notes (Text): Attestation: Patient seen and examined at the bedside with Resident Dr. Ros Carbone; and I agree with his outline of plans and management as documented and discussed on AM rounds reflecting my review of all applicable clinical data, and participation in the care of the patient throughout the day in ICU; today, October 17, 2016.
--- NOTE | 2016-10-17 16:40 | PN ---
Critical care progress/ HPI: Pt is in the icu, bed 423 and time spent with pt was 50 minutes. Pt has been seen and evaluated at their bedside since admittance and the clinical note has been reviewed. Currently the pt remains intubated on mechanical ventilation on ac/prvc. The pt's rr is 18, fi02 is 45%, [obserta rate is 18], expiratory volume is 530, medical ventilation is 9.4 L saturating at 97, [pkra pressure is 29], mean arterial pressure is 12, and the total co2 is 47. The pt was given fentanyl to reduce the pain and to facilitate the mechanical ventilation. MED: TYLENOL[ 6 PQ, 6 PRN] CEFEPIME 2 GRAM IV DAILY FLAGYL 400 MG Q 8 HOURS PROTONIX 40 MG AT 8 MG PER HOUR MORPHINE 2 ML IV Q 6 PRN FOR MOD RAPP [SOPHERINE 4 ML IV Q 6 PRN] PE: The patient is alert and responsive to pain. Yesterday, in an attempt to wean the pt off of the fentanyl, it became evident that it would not be possible due to the noted restlessness and distress that the pt was in. The vital signs this morning were, tmax: 99.2 ,Hr:76, bp:134/57, rr: 18, mean arterial pressure: 82, saturation is 97% on fio2: 45%, intake:1375, output:180, [oxidity balance: 1195] s/p hemodialysis with ultra filtrate [17730 lbs]. HEENT: Pupils 2-3 mm, and reactive, conjunctiva is pink, sclera white Neck: Supple, and an endotracheal tube is in place. There are no secretions noted. Ng is in place, there are noted bloody secretions. Chest: Bilateral breath sounds are diminished in intensity, as well as scattered rhonchi. Heart: RRR, s1s2 rapid, audible no numur Abd: Distended, tympanic, tenderness, as well as rebound tenderness and paucity. Gential: swollen Upper Extremity: Dependent edema Lower Extremity: Dependent edema, dorsalis pedis [295.6-295.8] Neuro: On ventilation, sedated, no response to stimuli, but there is a response to pain. Skin: warm, no rash LABS: WBC: 17 HEMOGLOBIN:8.7 HEMATOCRIT:27.8 PLATELET:45 PT:42.2 INR:3.6 PTT:89.2 ABC PHS: 7.45 PCS:39 PO:123 ON AC/PRVC:18, 550, 45% [ ]7731 K:4.4 Chloride:96 CO2:24 BLOOD IN URINE:101 CREATININE:7.6 CALCIUM: 7.7 AST:379 ALT:212 ALKALINE PHOSPHATASE: 18 [415.3-415.9] ALBUMIN:2.4 URINE: UCAST TRACE NEGATIVE, [426.6-435.8] MICROBIOLOGY: [437.8-439.6] NEG CXR: Endotracheal tube 6.6 Cm above daryl, nasogastric tubes in expected location in the stomach, small bilateral pleural effusion Pulmonary congestion, [discolor atelectasis] Impression: Neuro: Septic metabolic encephalopathy Resp: Acute respiratory failure on mechanical vent, weaning attempts unsuccessful secondary to distress, noted. Inability to protect airway, reduced lung volume secondary to abdominal distention. Cardiac: NSR, tensive, infectious disease, sepsis secondary to ischemic bowel on both spectrums. Antibiotic, will increase to optimize antibiotics regimen. Gi: Ischemic bowel suspected, superior mesenteric artery, thrombosis /occlusion , ischemic hepatitis Renal: Acute renal failure, secondary to acute tubular narcos on hemodialysis renal Endocrine: Maintain bs below 180 mg Hematology: Glucose cytosis, secondary to sepsis/necrotic bowel, thrombocytopenia secondary to sepsis noted bowel gi grading. [646.6-646.8] Discontinued due to high risk of grading. Nutrition: Oral feeding cannot be settled due to necrotic bowel, consider [691.6 -691.9] Will discuss with general surgery & renal nephrology as well as consult GI. The best practice is to keep the head up 30 degree, GI prophylaxis and anticoagulation are on hold secondary to GI blading Prognosis remains guarded We were offered by family previously to transfer to [place]. The family is aware of the difficult situation, and transport [place] will be initiated by the family and to have an accepting doctor at the hospital there. Jerel Hong MD
--- NOTE | 2016-10-17 17:06 | CP.PCM.PN ---
Subjective - Date & Time of Evaluation Date of Evaluation: 10/17/16 Time of Evaluation: 17:00 - Subjective Subjective: no overnight events Objective - Vital Signs/Intake and Output Vital Signs (last 24 hours): Temp Pulse Resp BP Pulse Ox 98.1 F 69 34 H 136/46 L 96 10/17/16 16:00 10/17/16 16:00 10/17/16 16:00 10/17/16 16:29 10/17/16 16:00 Intake and Output: 10/17/16 10/17/16 06:59 18:59 Intake Total 1190 Output Total 10 Balance 1180 - Medications Medications: Current Medications Acetaminophen (Tylenol 325mg Tab) 650 mg PO Q6 PRN PRN Reason: Fever >100.4 F Albuterol/Ipratropium (Duoneb 3 Mg/0.5 Mg (3 Ml) Ud) 3 ml INH RQ6 PRN PRN Reason: Shortness of Breath Fat Emulsion Intravenous (Intralipid 20%) 250 ml IV DAILY [facility] Metronidazole (Flagyl 500mg/100ml Ns) 100 mls @ 100 mls/hr IVPB Q8 [facility] Last Admin: 10/17/16 12:49 Dose: 100 mls/hr Pantoprazole Sodium 40 mg/ (Sodium Chloride) 100 mls @ 20 mls/hr IVPB Q5H [facility]UTH[facility] PRN Reason: 8 MG/HR Last Admin: 10/17/16 12:50 Dose: 20 mls/hr Meropenem 500 mg/ Sodium (Chloride) 100 mls @ 100 mls/hr IVPB Q12 [facility] Last Admin: 10/17/16 12:49 Dose: 100 mls/hr Vancomycin HCl 750 mg/ Sodium (Chloride) 250 mls @ 166.667 mls/hr IVPB QOTHERDAY [facility] Last Admin: 10/17/16 13:45 Dose: 166.667 mls/hr Micafungin Sodium 100 mg/ (Sodium Chloride) 100 mls @ 100 mls/hr IVPB DAILY [facility] Last Admin: 10/17/16 13:38 Dose: 100 mls/hr Sodium Acetate 100 meq/Magnesium Sulfate 5 meq/Calcium Gluconate 4.5 meq/ Multivitamins/Vitamin C 10 ml/Chromium/Copper/Manganese/Zinc 3 ml/ Amino Acids 1,073.9089 mls @ 60 mls/hr IV .[id number] ONE Stop: 10/18/16 09:08 Sodium Acetate 100 meq/Magnesium Sulfate 5 meq/Calcium Gluconate 4.5 meq/ Chromium/Copper/Manganese/Zinc 3 ml/ Amino Acids 1,063.9089 mls @ 60 mls/hr IV .[id number] ONE Stop: 10/18/16 09:13 Last Admin: 10/17/16 15:51 Dose: 60 mls/hr Labetalol HCl (Trandate) 40 mg IVP Q4 [facility] Last Admin: 10/17/16 14:06 Dose: 40 mg Labetalol HCl (Trandate) 20 mg IVP Q2 PRN PRN Reason: high blood pressure Last Admin: 10/17/16 15:35 Dose: 20 mg Morphine Sulfate (Morphine) 4 mg IVP Q4 PRN PRN Reason: Pain, severe (8-10) Last Admin: 10/17/16 11:52 Dose: 4 mg Ondansetron HCl (Zofran Inj) 4 mg IVP Q6 PRN PRN Reason: Nausea/Vomiting - Labs Labs: 10/17/16 04:35 10/17/16 04:35 PT 33.0 Seconds (9.8-13.1) H 10/17/16 04:35 INR 2.9 (0.9-1.2) H 10/17/16 04:35 APTT 60.3 Seconds (25.6-37.1) H 10/17/16 04:35 - GI/Abdominal Exam GI & Abdominal Exam: Guarding, Tenderness, Diminished Bowel Sounds Assessment and Plan - Assessment and Plan (Free Text) Assessment: 51 yo male with ischemic bowel abx per ID vasc input appreciated pending transfer
[2016-10-18] MEDS: metroNIDAZOLE 500mg/100ml NS 100 ML IVPB SCH ×3 (01:10→16:40)
[2016-10-18] MEDS: Labetalol 5 mg/ml Inj 20ML IVP SCH ×6 (02:11→20:24)
[2016-10-18] MEDS: Pantoprazole 40 MG in Sodium Chloride 0.9% 100 ML IVPB SCH ×4 (04:33→21:45)
[2016-10-18] MEDS: Acetaminophen 650mg/20.3ml solution UD PO PRN ×3 (04:35→20:40)
[2016-10-18] MEDS: Labetalol 5 mg/ml Inj 20ML IVP PRN ×3 (04:40→22:58)
[2016-10-18 05:39] LABS: BASO % 0.6 % (0.0-2.0); EOS # 0.1 K/uL (0.0-0.7); EOS % 1.4 % (0.0-4.0); HEMOGLOBIN 6.8 g/dL (12.0-18.0); LYMPH # 1.3 K/uL (1.0-4.3); LYMPH % 15.6 % (20.0-40.0); MEAN CELL VOLUME 90.6 fl (80.0-94.0); MEAN CORPUSCULAR HEMOGLOBIN 28.7 pg (27.0-31.0); MEAN CORPUSCULAR HGB CONC 31.6 g/dL (33.0-37.0); MEAN PLATELET VOLUME 10.7 fl (7.2-11.7); MONO % 11.9 % (0.0-10.0); NEUT % 70.5 % (50.0-75.0); NRBC % 17.3 % (0.0-0.0); RBC 2.38 Mil/uL (4.40-5.90); RED CELL DISTRIBUTION WIDTH 17.5 % (11.5-14.5); WHITE BLOOD COUNT 8.5 K/uL (4.8-10.8)
[2016-10-18 05:50] LABS: ALB/GLOB RATIO 0.8 (1.0-2.1); CALCIUM 7.8 mg/dL (8.4-10.2); MAGNESIUM 2.6 MG/DL (1.6-2.3)
--- NOTE | 2016-10-18 07:12 | CP.CCUPN ---
Addendum entered and electronically signed by Kenan Carbone MD 10/18/16 15:20 : * Patients sister was called today (Christian Byrd) in [place] via [employer] diplomatic interpreter/translator network. The sister has designated the patients boyfriend Isaiah Valerio, the primary decision maker for any medical decisions that need to be made. Penemarie K Murphy diplomatic interpreter/translator # [id number]. Have given the sister a fax number, for her to send a letter to designate Isaiah as the primary decision maker. Witness by: Dr. Robledo, Kitty Francois Caller: Kenan Carbone Original Note: <Kenan Carbone - Last Filed: 10/18/16 12:51> CCU Subjective - Physician Review Subjective (Free Text): 10/18/16 12:23 Patient is seen at bedside. He appears more agitated then normal in the last two days. Patient tore out the side portion of hemodialysis catheter last night , and had bleeding which soaked the sheets last night as per the overnight nurse. Otherwise patient opens his eyes and follows verbal commands. - Patient recieving dialysis today. And will receiveing 2 units of PRBC. * Awaiting callback fron [facility], to see if he is accepted for transfer to there institution. 10/18/16 12:33 Critical Care Time Spent (in minutes): 30 CCU Objective - Vital Signs / Intake & Output Vital Signs (Last 4 hours): Vital Signs Temp Pulse Resp BP Pulse Ox 10/18/16 06:00 99.8 F H 72 30 H 140/52 L 96 10/18/16 05:43 77 147/54 L 10/18/16 05:35 99.8 F H 10/18/16 04:40 80 142/68 10/18/16 04:35 100.2 F H 10/18/16 04:00 1002.2 F H 81 27 H 131/65 96 Intake and Output (Last 8hrs): Intake & Output 10/17/16 10/18/16 10/18/16 22:59 06:59 14:59 Intake Total 910 2245 Output Total 150 320 Balance 760 1925 Intake: IV 190 Intake, Piggyback 600 420 TPN/PPN 120 660 Blood Product 1165 Output: Gastric Amount 150 270 Stomach 150 270 Urine 50 Urethral (Taylor) 50 - Physical Exam Head: Positive for: Atraumatic, Normocephalic Pupils: Positive for: PERRL Conjunctiva: Positive for: Normal. Negative for: Icteric Ears: Positive for: Normal Mouth: Positive for: Moist Mucous Membranes, Other (Dry Blood noticed in oral region. Blood noted via NG tube suction) Nose (External): Positive for: Atraumatic Nose (Internal): Positive for: Normal Inspection Neck: Positive for: Trachea Midline. Negative for: JVD Respiratory/Chest: Positive for: Decreased Breath Sounds, Rhonchi Cardiovascular: Positive for: Regular Rate and Rhythm, Tachycardic. Negative for: Murmurs, Rub Abdomen: Positive for: Tenderness (Generalized tenderness to palpate. Dressing clean dry and intact), Distention, Guarding Genitourinary Male: Positive for: Testicle Swelling Upper Extremity: Positive for: Normal Inspection, Edema Lower Extremity: Positive for: Cyanosis, Swelling, Other (Warm lower extremity b /l). Negative for: CALF TENDERNESS Neurological: Positive for: Other (Patient is able to follow comand and move all extremities.) Skin: Positive for: Warm, Other (+ anasarca). Negative for: Rashes Psychiatric: Positive for: Alert, Other (sedated). Negative for: Oriented x 3 - Medications Active Medications: Active Medications Generic Name Dose Route Start Last Admin Trade Name Freq PRN Reason Stop Dose Admin Acetaminophen 650 mg 10/06/16 15:27 Tylenol 325mg Tab PO Q6 PRN Fever >100.4 F Acetaminophen 650 mg 10/18/16 04:24 10/18/16 04:35 Tylenol 650mg/20.3ml Solution Ud PO 650 mg Q6 PRN Administration fever Albuterol/Ipratropium 3 ml 10/16/16 05:44 Duoneb 3 Mg/0.5 Mg (3 Ml) Ud INH RQ6 PRN Shortness of Breath Fat Emulsion Intravenous 250 ml 10/18/16 09:00 Intralipid 20% IV DAILY [facility] Metronidazole 100 mls @ 100 mls/hr 10/08/16 11:15 10/18/16 01:10 Flagyl 500mg/100ml Ns IVPB 100 mls/hr Q8 [facility] Administration Pantoprazole Sodium 40 mg/ 100 mls @ 20 mls/hr 10/12/16 10:15 10/18/16 04:33 Sodium Chloride IVPB 20 mls/hr Q5H [facility] Administration 8 MG/HR Meropenem 500 mg/ Sodium 100 mls @ 100 mls/hr 10/13/16 21:00 10/17/16 22:45 Chloride IVPB 100 mls/hr Q12 [facility] Administration Vancomycin HCl 750 mg/ Sodium 250 mls @ 166.667 mls/hr 10/15/16 09:00 13:45 Chloride IVPB 166.667 mls/hr QOTHERDAY [facility] Administration Micafungin Sodium 100 mg/ 100 mls @ 100 mls/hr 10/15/16 14:00 10/17/16 13:38 Sodium Chloride IVPB 100 mls/hr DAILY [facility] Administration Sodium Acetate 100 meq/ 1,073.9089 mls @ 60 mls/hr 10/17/16 15:15 Magnesium Sulfate 5 meq/ IV 10/18/16 09:08 Calcium Gluconate 4.5 meq/ .[id number] ONE Multivitamins/Vitamin C 10 ml/ Chromium/Copper/Manganese/ Zinc 3 ml/ Amino Acids Sodium Acetate 100 meq/ 1,063.9089 mls @ 60 mls/hr 10/17/16 15:30 10/17/16 15 :51 Magnesium Sulfate 5 meq/ IV 10/18/16 09:13 60 mls/hr Calcium Gluconate 4.5 meq/ .[id number] ONE Administration Chromium/Copper/Manganese/Zinc 3 ml/ Amino Acids Labetalol HCl 40 mg 10/17/16 10:21 10/18/16 05:43 Trandate IVP 40 mg Q4 [facility] Administration Labetalol HCl 20 mg 10/17/16 10:45 10/18/16 04:40 Trandate IVP 20 mg Q2 PRN Administration high blood pressure Morphine Sulfate 4 mg 10/14/16 16:50 10/17/16 11:52 Morphine IVP 4 mg Q4 PRN Administration Pain, severe (8-10) Ondansetron HCl 4 mg 10/06/16 15:27 Zofran Inj IVP Q6 PRN Nausea/Vomiting - Patient Studies Lab Studies: Microbiology Studies 10/13/16 14:10 Blood Culture - Preliminary Blood-Venous NO GROWTH AFTER 4 DAYS 10/13/16 14:10 Blood Culture - Preliminary Blood-Venous NO GROWTH AFTER 4 DAYS Lab Studies 10/18/16 10/18/16 10/18/16 Range/Units 04:20 04:20 04:20 WBC 8.5 (4.8-10.8) K/uL RBC 2.38 L (4.40-5.90) Mil/uL Hgb 6.8 L (12.0-18.0) g/dL Hct 21.6 L (35.0-51.0) % MCV 90.6 D (80.0-94.0) fl MCH 28.7 (27.0-31.0) pg MCHC 31.6 L (33.0-37.0) g/dL RDW 17.5 H (11.5-14.5) % Plt Count 159 (130-400) K/uL MPV 10.7 (7.2-11.7) fl Neut % (Auto) 70.5 (50.0-75.0) % Lymph % (Auto) 15.6 L (20.0-40.0) % Webster % (Auto) 11.9 H (0.0-10.0) % Eos % (Auto) 1.4 (0.0-4.0) % Baso % (Auto) 0.6 (0.0-2.0) % Neut # 6.0 (1.8-7.0) K/uL Lymph # 1.3 (1.0-4.3) K/uL Webster # 1.0 H (0.0-0.8) K/uL Eos # 0.1 (0.0-0.7) K/uL Baso # 0.0 (0.0-0.2) K/uL APTT 41.7 H D (25.6-37.1) Seconds Sodium 140 (132-148) mmol/l Potassium 4.0 (3.6-5.0) MMOL/L Chloride 99 (98-107) mmol/L Carbon Dioxide 26 (22-30) mmol/L Anion Gap 19 (10-20) BUN 64 H (9-20) mg/dl Creatinine 5.2 H (0.8-1.5) mg/dL Est GFR ( Amer) 14 Est GFR (Non-Af Amer) 12 Random Glucose 196 H (75-110) mg/dL Calcium 7.8 L (8.4-10.2) mg/dL Phosphorus 7.3 H (2.5-4.5) mg/dl Magnesium 2.6 H (1.6-2.3) MG/DL Total Bilirubin 9.7 H (0.2-1.3) mg/dl AST 111 H (17-59) U/L ALT 65 (21-72) U/L Alkaline Phosphatase 95 (38-126) U/L Total Protein 6.7 (6.3-8.2) G/DL Albumin 3.0 L (3.5-5.0) g/dL Globulin 3.7 (2.2-3.9) gm/dL Albumin/Globulin Ratio 0.8 L (1.0-2.1) Laboratory Results - last 24 hr 10/18/16 10/18/16 10/18/16 04:20 04:20 04:20 WBC 8.5 RBC 2.38 L Hgb 6.8 L Hct 21.6 L MCV 90.6 D MCH 28.7 MCHC 31.6 L RDW 17.5 H Plt Count 159 MPV 10.7 Neut % (Auto) 70.5 Lymph % (Auto) 15.6 L Webster % (Auto) 11.9 H Eos % (Auto) 1.4 Baso % (Auto) 0.6 Neut # 6.0 Lymph # 1.3 Webster # 1.0 H Eos # 0.1 Baso # 0.0 APTT 41.7 H D Sodium 140 Potassium 4.0 Chloride 99 Carbon Dioxide 26 Anion Gap 19 BUN 64 H Creatinine 5.2 H Est GFR ( Amer) 14 Est GFR (Non-Af Amer) 12 Random Glucose 196 H Calcium 7.8 L Phosphorus 7.3 H Magnesium 2.6 H Total Bilirubin 9.7 H AST 111 H ALT 65 Alkaline Phosphatase 95 Total Protein 6.7 Albumin 3.0 L Globulin 3.7 Albumin/Globulin Ratio 0.8 L Assessment/Plan - Assessment and Plan (Free Text) Assessment: 51 YO M w/ PMH Type A aortic aneursym repair 2 weeks ago at [facility] by Dr. Wheat, cocaine abuse had presented to the ER for abdominal pain w/ nausea and emesis. Pt was found to have evidence of mesenteric ischemia/ infarction on CT and a emergent exploratory laprotamy was done and they were unable to resect the bowl because it extended from ligament of teres to the transverse colon. Have spoke to NHU they, they will review the imaging that was sent to them, and possibly accept the patient for transfer. 1) Septic Shock, secondary to ischemic bowl - Spoke with Dr. Noguera at the [place] [facility]. They are willing to accept the patient of the patient for bowl resection and possible intestinal transplant, if the patient is safe for transfer. Will speak to NHU regarding his thoracoabdominal aortic dissection, to see if he is a candidate for repair. 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 - Have spoke to [facility], the imaging studies couriered , awaiting Dr. Wheat to review the imaging and accept the patient for transfer. - WBC has trended down to 14.9 - Lactic acid has trended down to 2.6. Procalcitonin has trended down to 43 - Patient has been extubated and is currently on a venti mask saturating at 98%. - Patient is off of pressers and blood pressure remains stable - Argatroban was held due to GI bleed noticed via NG tube. Today INR: 1.7 . Continue serial PT/INR. Pt received 6 units of Fresh frozen plasma yesterday - Pain controlled with Morphine PRN. - Pt had 270 ml of blood via NG tube as per overnight nurse. - Cont w/ Cefapime, Microfungin, Flagyl, and Vancomycin 2)Recent aortic aneurysm rupture repair - Have spoke to [facility], the imaging studies couriered , awaiting Dr. Wheat to review the imaging and accept the patient for transfer. - Most recent CT showed thracoabdominal aortic dissection. - Hb has been dropping, morning HB is 6.8/21.6. - Have ordered 2 units of blood - Strict control of BP 3) Mesentric ischemia - Most likely secondary to thracoabdominal aortic dissection. - PICC line has been placed; recieving TPN - Have ordered 3) Hypertension - Blood pressure this morning 148/62 - Labetolol 40 mg Q4. Labetolol 20mg Q2 PRN - Strict BP controll 4.) Elevated liver enzymes most likely secondary to mesenteric ischemia - AST:111, ALT:65:-> trending down - Total bilirubin: 9.7 stable w/ yesterday's lab - GI consult appreciated - Continue to monitor - F/U with direct and indirect bili 5. Renal failure secondary to decrease perfusion - Receiving HD this morning, because of the increase volume the patient has recieved since yesterday. - BUN:64 Creatinine:5.2 - F/U w/ CMP, Mg+, Phos - Dr. Zavaleta on consult 6) A Fib ( Resolved) - Resolved after receiving amiodarone. - Cardio consult appreciated 7) Upper GI Bleed - INR today us 1.7 - Blood noted via NG suction - Continue IV protonix - Hold Argatroban. - Continue serial PTT - Recieved 6 units of FFP yesterday. 8) Heparin Induced thrombocytopenia - Avoid all heparin products - Heparin induced platelet antibody is weakly positive - Seratonin Rel assay ordered - Platelet today 196 - Argatorban was given and stopped after GI bleed. 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 Monitor PTT - SCD <Corey Robleod - Last Filed: 10/18/16 17:38> Assessment/Plan - Assessment and Plan (Free Text) Plan: Attestation: Patient seen and examined at the bedside with Resident Dr. Ros Carbone; and I agree with his outline of plans and management as documented and discussed on AM rounds reflecting my review of all applicable clinical data, and participation in the care of the patient throughout the day in ICU; today, October 18, 2016.
[2016-10-18] MEDS: Meropenem 500 MG in Sodium Chloride 0.9% 100 ML IVPB SCH ×2 (08:06→20:25)
[2016-10-18] MEDS: Micafungin 100 MG in Sodium Chloride 0.9% 100 ML IVPB SCH (08:08)
--- NOTE | 2016-10-18 09:15 | CP.PCM.PN ---
Subjective - Date & Time of Evaluation Date of Evaluation: 10/18/16 Time of Evaluation: 09:15 - Subjective Subjective: RESPONDS TO TOUCH AND VERBAL COMMANDS BUT STILL DROWSY ON VMASK O2 WITH SAT>95% LUNGS-FAIR AERATION NO NEW PULMONARY INTERVENTION FOR NOW WILL CONTINUE TO FOLLOW WITH YOU Objective - Vital Signs/Intake and Output Vital Signs (last 24 hours): Temp Pulse Resp BP Pulse Ox 98.4 F 80 30 H 135/60 98 10/18/16 08:00 10/18/16 08:46 10/18/16 08:00 10/18/16 08:46 10/18/16 08:00 Intake and Output: 10/18/16 10/18/16 06:59 18:59 Intake Total 2245 80 Output Total 320 Balance 1925 80 - Medications Medications: Current Medications Acetaminophen (Tylenol 325mg Tab) 650 mg PO Q6 PRN PRN Reason: Fever >100.4 F Acetaminophen (Tylenol 650mg/20.3ml Solution Ud) 650 mg PO Q6 PRN PRN Reason: fever Last Admin: 10/18/16 04:35 Dose: 650 mg Albuterol/Ipratropium (Duoneb 3 Mg/0.5 Mg (3 Ml) Ud) 3 ml INH RQ6 PRN PRN Reason: Shortness of Breath Fat Emulsion Intravenous (Intralipid 20%) 250 ml IV DAILY [facility] Last Admin: 10/18/16 08:11 Dose: 250 ml Metronidazole (Flagyl 500mg/100ml Ns) 100 mls @ 100 mls/hr IVPB Q8 [facility] Last Admin: 10/18/16 08:04 Dose: 100 mls/hr Pantoprazole Sodium 40 mg/ (Sodium Chloride) 100 mls @ 20 mls/hr IVPB Q5H [facility] PRN Reason: 8 MG/HR Last Admin: 10/18/16 08:49 Dose: 20 mls/hr Meropenem 500 mg/ Sodium (Chloride) 100 mls @ 100 mls/hr IVPB Q12 [facility] Last Admin: 10/18/16 08:06 Dose: 100 mls/hr Vancomycin HCl 750 mg/ Sodium (Chloride) 250 mls @ 166.667 mls/hr IVPB QOTHERDAY [facility] Last Admin: 10/17/16 13:45 Dose: 166.667 mls/hr Micafungin Sodium 100 mg/ (Sodium Chloride) 100 mls @ 100 mls/hr IVPB DAILY [facility] Last Admin: 10/18/16 08:08 Dose: 100 mls/hr Labetalol HCl (Trandate) 40 mg IVP Q4 [facility] Last Admin: 10/18/16 08:46 Dose: 40 mg Labetalol HCl (Trandate) 20 mg IVP Q2 PRN PRN Reason: high blood pressure Last Admin: 10/18/16 04:40 Dose: 20 mg Morphine Sulfate (Morphine) 4 mg IVP Q4 PRN PRN Reason: Pain, severe (8-10) Last Admin: 10/17/16 11:52 Dose: 4 mg Ondansetron HCl (Zofran Inj) 4 mg IVP Q6 PRN PRN Reason: Nausea/Vomiting - Labs Labs: 10/18/16 04:20 10/18/16 04:20 PT 33.0 Seconds (9.8-13.1) H 10/17/16 04:35 INR 2.9 (0.9-1.2) H 10/17/16 04:35 APTT 41.7 Seconds (25.6-37.1) H D 10/18/16 04:20
[2016-10-18 09:37] LABS: INR 1.7 (0.9-1.2); PROTHROMBIN TIME 19.8 Seconds (9.8-13.1)
--- NOTE | 2016-10-18 10:16 | CP.PCM.PN ---
Subjective - Date & Time of Evaluation Date of Evaluation: 10/18/16 Time of Evaluation: 10:13 - Subjective Subjective: Patient receiving multiple units of fresh frozen plasma and blood transfusion also scheduled to receive more blood transfusion today Therefore we will give extra hemodialysis now because of all the fluid that he has been given Physical exam Chest no significant rales Heart no rubs Abdomen diffuse tenderness Extremity trace edema Impression and plan Acute renal failure, respiratory failure, with abnormal liver function test with high bilirubin and severe anemia requiring blood transfusion and coagulopathy requiring fresh frozen plasma Continue as primary team and ICU with extra hemodialysis today. Objective - Vital Signs/Intake and Output Vital Signs (last 24 hours): Temp Pulse Resp BP Pulse Ox 98.4 F 75 29 H 148/62 98 10/18/16 08:00 10/18/16 10:00 10/18/16 10:00 10/18/16 10:00 10/18/16 10:00 Intake and Output: 10/18/16 10/18/16 06:59 18:59 Intake Total 2245 790 Output Total 320 Balance 1925 790 - Medications Medications: Current Medications Acetaminophen (Tylenol 325mg Tab) 650 mg PO Q6 PRN PRN Reason: Fever >100.4 F Acetaminophen (Tylenol 650mg/20.3ml Solution Ud) 650 mg PO Q6 PRN PRN Reason: fever Last Admin: 10/18/16 04:35 Dose: 650 mg Albuterol/Ipratropium (Duoneb 3 Mg/0.5 Mg (3 Ml) Ud) 3 ml INH RQ6 PRN PRN Reason: Shortness of Breath Fat Emulsion Intravenous (Intralipid 20%) 250 ml IV DAILY [facility] Last Admin: 10/18/16 08:11 Dose: 250 ml Metronidazole (Flagyl 500mg/100ml Ns) 100 mls @ 100 mls/hr IVPB Q8 [facility] Last Admin: 10/18/16 08:04 Dose: 100 mls/hr Pantoprazole Sodium 40 mg/ (Sodium Chloride) 100 mls @ 20 mls/hr IVPB Q5H [facility]Y PRN Reason: 8 MG/HR Last Admin: 10/18/16 08:49 Dose: 20 mls/hr Meropenem 500 mg/ Sodium (Chloride) 100 mls @ 100 mls/hr IVPB Q12 [facility] Last Admin: 10/18/16 08:06 Dose: 100 mls/hr Vancomycin HCl 750 mg/ Sodium (Chloride) 250 mls @ 166.667 mls/hr IVPB QOTHERDAY [facility] Last Admin: 10/17/16 13:45 Dose: 166.667 mls/hr Micafungin Sodium 100 mg/ (Sodium Chloride) 100 mls @ 100 mls/hr IVPB DAILY [facility] Last Admin: 10/18/16 08:08 Dose: 100 mls/hr Labetalol HCl (Trandate) 40 mg IVP Q4 [facility] Last Admin: 10/18/16 08:46 Dose: 40 mg Labetalol HCl (Trandate) 20 mg IVP Q2 PRN PRN Reason: high blood pressure Last Admin: 10/18/16 04:40 Dose: 20 mg Morphine Sulfate (Morphine) 4 mg IVP Q4 PRN PRN Reason: Pain, severe (8-10) Last Admin: 10/17/16 11:52 Dose: 4 mg Ondansetron HCl (Zofran Inj) 4 mg IVP Q6 PRN PRN Reason: Nausea/Vomiting - Labs Labs: 10/18/16 04:20 10/18/16 04:20 PT 19.8 Seconds (9.8-13.1) H D 10/18/16 08:35 INR 1.7 (0.9-1.2) H D 10/18/16 08:35 APTT 41.7 Seconds (25.6-37.1) H D 10/18/16 04:20 Assessment and Plan (1) Acute renal failure (ARF) Status: Acute
--- NOTE | 2016-10-18 10:24 | CP.PCM.PN ---
Subjective - Date & Time of Evaluation Date of Evaluation: 10/18/16 Time of Evaluation: 09:35 - Subjective Subjective: Patient was seen and examined at the bedside. Objective - Vital Signs/Intake and Output Vital Signs (last 24 hours): Temp Pulse Resp BP Pulse Ox 98.4 F 75 29 H 148/62 98 10/18/16 08:00 10/18/16 10:00 10/18/16 10:00 10/18/16 10:00 10/18/16 10:00 Intake and Output: 10/18/16 10/18/16 06:59 18:59 Intake Total 2245 790 Output Total 320 Balance 1925 790 - Medications Medications: Current Medications Acetaminophen (Tylenol 325mg Tab) 650 mg PO Q6 PRN PRN Reason: Fever >100.4 F Acetaminophen (Tylenol 650mg/20.3ml Solution Ud) 650 mg PO Q6 PRN PRN Reason: fever Last Admin: 10/18/16 04:35 Dose: 650 mg Albuterol/Ipratropium (Duoneb 3 Mg/0.5 Mg (3 Ml) Ud) 3 ml INH RQ6 PRN PRN Reason: Shortness of Breath Fat Emulsion Intravenous (Intralipid 20%) 250 ml IV DAILY [facility] Last Admin: 10/18/16 08:11 Dose: 250 ml Metronidazole (Flagyl 500mg/100ml Ns) 100 mls @ 100 mls/hr IVPB Q8 [facility] Last Admin: 10/18/16 08:04 Dose: 100 mls/hr Pantoprazole Sodium 40 mg/ (Sodium Chloride) 100 mls @ 20 mls/hr IVPB Q5H [facility] PRN Reason: 8 MG/HR Last Admin: 10/18/16 08:49 Dose: 20 mls/hr Meropenem 500 mg/ Sodium (Chloride) 100 mls @ 100 mls/hr IVPB Q12 [facility] Last Admin: 10/18/16 08:06 Dose: 100 mls/hr Vancomycin HCl 750 mg/ Sodium (Chloride) 250 mls @ 166.667 mls/hr IVPB QOTHERDAY [facility] Last Admin: 10/17/16 13:45 Dose: 166.667 mls/hr Micafungin Sodium 100 mg/ (Sodium Chloride) 100 mls @ 100 mls/hr IVPB DAILY [facility] Last Admin: 10/18/16 08:08 Dose: 100 mls/hr Labetalol HCl (Trandate) 40 mg IVP Q4 [facility] Last Admin: 10/18/16 08:46 Dose: 40 mg Labetalol HCl (Trandate) 20 mg IVP Q2 PRN PRN Reason: high blood pressure Last Admin: 10/18/16 04:40 Dose: 20 mg Morphine Sulfate (Morphine) 4 mg IVP Q4 PRN PRN Reason: Pain, severe (8-10) Last Admin: 10/17/16 11:52 Dose: 4 mg Ondansetron HCl (Zofran Inj) 4 mg IVP Q6 PRN PRN Reason: Nausea/Vomiting - Labs Labs: 10/18/16 04:20 10/18/16 04:20 PT 19.8 Seconds (9.8-13.1) H D 10/18/16 08:35 INR 1.7 (0.9-1.2) H D 10/18/16 08:35 APTT 41.7 Seconds (25.6-37.1) H D 10/18/16 04:20 - Constitutional Appears: No Acute Distress - Head Exam Head Exam: ATRAUMATIC, NORMAL INSPECTION, NORMOCEPHALIC - ENT Exam ENT Exam: Mucous Membranes Dry - Neck Exam Neck Exam: Normal Inspection - Respiratory Exam Respiratory Exam: Rhonchi - Cardiovascular Exam Cardiovascular Exam: REGULAR RHYTHM, +S1, +S2 - GI/Abdominal Exam GI & Abdominal Exam: Soft, Hypoactive Bowel Sounds Additional comments: Tender to palpation, mildly distended, incision clean, no erythema, no drainage , robby in place - Rectal Exam Rectal Exam: Deferred - Neurological Exam Neurological Exam: Awake - Skin Skin Exam: Dry, Intact, Normal Color, Warm Assessment and Plan - Assessment and Plan (Free Text) Assessment: 51 y.o. male with aortic dissection, mesenteric ischemia Plan: - Keep NPO - IV fluids - Pain control - Transfuse 2 units of PRBCs - Antibiotics as per ID - No further general surgery intervention at present time - Continue care as per ICU and medical teams - Awaiting transfer to [facility]U - Will follow
--- NOTE | 2016-10-18 11:37 | CP.PCM.PN ---
<Evelin Crane - Last Filed: 10/18/16 11:34> Subjective - Date & Time of Evaluation Date of Evaluation: 10/18/16 Time of Evaluation: 11:35 - Subjective Subjective: Vascular surgery for Dr. Armendariz Pt s&e. Pt is less agitated today. Response to pain stimuli. Doesn't follow verbal command. Getting FFP and PRBC. Objective - Vital Signs/Intake and Output Vital Signs (last 24 hours): Temp Pulse Resp BP Pulse Ox 98.4 F 78 29 H 157/64 H 98 10/18/16 08:00 10/18/16 10:34 10/18/16 10:00 10/18/16 10:34 10/18/16 10:00 Intake and Output: 10/18/16 10/18/16 06:59 18:59 Intake Total 2245 790 Output Total 320 Balance 1925 790 - Medications Medications: Current Medications Acetaminophen (Tylenol 325mg Tab) 650 mg PO Q6 PRN PRN Reason: Fever >100.4 F Acetaminophen (Tylenol 650mg/20.3ml Solution Ud) 650 mg PO Q6 PRN PRN Reason: fever Last Admin: 10/18/16 04:35 Dose: 650 mg Albuterol/Ipratropium (Duoneb 3 Mg/0.5 Mg (3 Ml) Ud) 3 ml INH RQ6 PRN PRN Reason: Shortness of Breath Fat Emulsion Intravenous (Intralipid 20%) 250 ml IV DAILY [facility] Last Admin: 10/18/16 08:11 Dose: 250 ml Metronidazole (Flagyl 500mg/100ml Ns) 100 mls @ 100 mls/hr IVPB Q8 [facility] Last Admin: 10/18/16 08:04 Dose: 100 mls/hr Pantoprazole Sodium 40 mg/ (Sodium Chloride) 100 mls @ 20 mls/hr IVPB Q5H [facility] PRN Reason: 8 MG/HR Last Admin: 10/18/16 08:49 Dose: 20 mls/hr Meropenem 500 mg/ Sodium (Chloride) 100 mls @ 100 mls/hr IVPB Q12 [facility] Last Admin: 10/18/16 08:06 Dose: 100 mls/hr Vancomycin HCl 750 mg/ Sodium (Chloride) 250 mls @ 166.667 mls/hr IVPB QOTHERDAY [facility] Last Admin: 10/17/16 13:45 Dose: 166.667 mls/hr Micafungin Sodium 100 mg/ (Sodium Chloride) 100 mls @ 100 mls/hr IVPB DAILY [facility] Last Admin: 10/18/16 08:08 Dose: 100 mls/hr Labetalol HCl (Trandate) 40 mg IVP Q4 [facility] Last Admin: 10/18/16 08:46 Dose: 40 mg Labetalol HCl (Trandate) 20 mg IVP Q2 PRN PRN Reason: high blood pressure Last Admin: 10/18/16 10:34 Dose: 20 mg Morphine Sulfate (Morphine) 4 mg IVP Q4 PRN PRN Reason: Pain, severe (8-10) Last Admin: 10/17/16 11:52 Dose: 4 mg Ondansetron HCl (Zofran Inj) 4 mg IVP Q6 PRN PRN Reason: Nausea/Vomiting - Labs Labs: 10/18/16 04:20 10/18/16 04:20 PT 19.8 Seconds (9.8-13.1) H D 10/18/16 08:35 INR 1.7 (0.9-1.2) H D 10/18/16 08:35 APTT 41.7 Seconds (25.6-37.1) H D 10/18/16 04:20 <Lobo Armendariz - Last Filed: 10/18/16 17:32> Objective - Vital Signs/Intake and Output Vital Signs (last 24 hours): Temp Pulse Resp BP Pulse Ox 98.9 F 73 26 H 165/72 H 98 10/18/16 16:00 10/18/16 16:39 10/18/16 16:00 10/18/16 16:39 10/18/16 16:00 Intake and Output: 10/18/16 10/18/16 06:59 18:59 Intake Total 2245 1420 Output Total 320 Balance 1925 1420 - Medications Medications: Current Medications Acetaminophen (Tylenol 325mg Tab) 650 mg PO Q6 PRN PRN Reason: Fever >100.4 F Acetaminophen (Tylenol 650mg/20.3ml Solution Ud) 650 mg PO Q6 PRN PRN Reason: fever Last Admin: 10/18/16 13:11 Dose: 650 mg Albuterol/Ipratropium (Duoneb 3 Mg/0.5 Mg (3 Ml) Ud) 3 ml INH RQ6 PRN PRN Reason: Shortness of Breath Metronidazole (Flagyl 500mg/100ml Ns) 100 mls @ 100 mls/hr IVPB Q8 [facility] Last Admin: 10/18/16 16:40 Dose: 100 mls/hr Pantoprazole Sodium 40 mg/ (Sodium Chloride) 100 mls @ 20 mls/hr IVPB Q5H [facility] PRN Reason: 8 MG/HR Last Admin: 10/18/16 16:40 Dose: 20 mls/hr Meropenem 500 mg/ Sodium (Chloride) 100 mls @ 100 mls/hr IVPB Q12 [facility] Last Admin: 10/18/16 08:06 Dose: 100 mls/hr Vancomycin HCl 750 mg/ Sodium (Chloride) 250 mls @ 166.667 mls/hr IVPB QOTHERDAY [facility] Last Admin: 10/17/16 13:45 Dose: 166.667 mls/hr Micafungin Sodium 100 mg/ (Sodium Chloride) 100 mls @ 100 mls/hr IVPB DAILY [facility] Last Admin: 10/18/16 08:08 Dose: 100 mls/hr Sodium Acetate 100 meq/Calcium Gluconate 4.5 meq/Multivitamins/Vitamin C 10 ml/ Chromium/Copper/Manganese/Zinc 3 ml/ Amino Acids 1,072.6774 mls @ 60 mls/hr IV .[id number] ONE Stop: 10/19/16 09:22 Sodium Acetate 100 meq/Calcium Gluconate 4.5 meq/Amino Acids 1,059.6774 mls @ 60 mls/hr IV .[id number] ONE Stop: 10/19/16 09:09 Labetalol HCl (Trandate) 40 mg IVP Q4 [facility] Last Admin: 10/18/16 16:39 Dose: 40 mg Labetalol HCl (Trandate) 20 mg IVP Q2 PRN PRN Reason: high blood pressure Last Admin: 10/18/16 10:34 Dose: 20 mg Morphine Sulfate (Morphine) 4 mg IVP Q4 PRN PRN Reason: Pain, severe (8-10) Last Admin: 10/18/16 16:39 Dose: 4 mg Ondansetron HCl (Zofran Inj) 4 mg IVP Q6 PRN PRN Reason: Nausea/Vomiting - Labs Labs: 10/18/16 04:20 10/18/16 04:20 PT 19.8 Seconds (9.8-13.1) H D 10/18/16 08:35 INR 1.7 (0.9-1.2) H D 10/18/16 08:35 APTT 41.7 Seconds (25.6-37.1) H D 10/18/16 04:20 Assessment and Plan - Assessment and Plan (Free Text) Plan: Patient remains critically ill although hemodynamically stable. Abdomen is distended, diffusely tender but does not appear acute. Right lower extremity is unchanged with no signs of acute limb threatening ischemia. Patient is awaiting transfer to [facility] for further care.
--- NOTE | 2016-10-18 12:09 | CP.PCM.PN ---
Subjective - Date & Time of Evaluation Date of Evaluation: 10/18/16 Time of Evaluation: 11:30 - Subjective Subjective: Low grade fever however leukocytosis resolved Remains on ventimask Lethargic nonverbal however nodded when i asked him if he understands what Im saying follows simple command but not consistent blood drainage from NGT Plan for dialyis today Objective - Vital Signs/Intake and Output Vital Signs (last 24 hours): Temp Pulse Resp BP Pulse Ox 98.4 F 78 29 H 157/64 H 98 10/18/16 08:00 10/18/16 10:34 10/18/16 10:00 10/18/16 10:34 10/18/16 10:00 Intake and Output: 10/18/16 10/18/16 06:59 18:59 Intake Total 2245 790 Output Total 320 Balance 1925 790 - Medications Medications: Current Medications Acetaminophen (Tylenol 325mg Tab) 650 mg PO Q6 PRN PRN Reason: Fever >100.4 F Acetaminophen (Tylenol 650mg/20.3ml Solution Ud) 650 mg PO Q6 PRN PRN Reason: fever Last Admin: 10/18/16 04:35 Dose: 650 mg Albuterol/Ipratropium (Duoneb 3 Mg/0.5 Mg (3 Ml) Ud) 3 ml INH RQ6 PRN PRN Reason: Shortness of Breath Fat Emulsion Intravenous (Intralipid 20%) 250 ml IV DAILY [facility] Last Admin: 10/18/16 08:11 Dose: 250 ml Metronidazole (Flagyl 500mg/100ml Ns) 100 mls @ 100 mls/hr IVPB Q8 [facility] Last Admin: 10/18/16 08:04 Dose: 100 mls/hr Pantoprazole Sodium 40 mg/ (Sodium Chloride) 100 mls @ 20 mls/hr IVPB Q5H [facility] PRN Reason: 8 MG/HR Last Admin: 10/18/16 08:49 Dose: 20 mls/hr Meropenem 500 mg/ Sodium (Chloride) 100 mls @ 100 mls/hr IVPB Q12 [facility] Last Admin: 10/18/16 08:06 Dose: 100 mls/hr Vancomycin HCl 750 mg/ Sodium (Chloride) 250 mls @ 166.667 mls/hr IVPB QOTHERDAY [facility] Last Admin: 10/17/16 13:45 Dose: 166.667 mls/hr Micafungin Sodium 100 mg/ (Sodium Chloride) 100 mls @ 100 mls/hr IVPB DAILY [facility] Last Admin: 10/18/16 08:08 Dose: 100 mls/hr Labetalol HCl (Trandate) 40 mg IVP Q4 [facility] Last Admin: 10/18/16 08:46 Dose: 40 mg Labetalol HCl (Trandate) 20 mg IVP Q2 PRN PRN Reason: high blood pressure Last Admin: 10/18/16 10:34 Dose: 20 mg Morphine Sulfate (Morphine) 4 mg IVP Q4 PRN PRN Reason: Pain, severe (8-10) Last Admin: 10/17/16 11:52 Dose: 4 mg Ondansetron HCl (Zofran Inj) 4 mg IVP Q6 PRN PRN Reason: Nausea/Vomiting - Labs Labs: 10/18/16 04:20 10/18/16 04:20 PT 19.8 Seconds (9.8-13.1) H D 10/18/16 08:35 INR 1.7 (0.9-1.2) H D 10/18/16 08:35 APTT 41.7 Seconds (25.6-37.1) H D 10/18/16 04:20 - Constitutional Appears: Chronically Ill On Venti mask - Head Exam Head Exam: NORMAL INSPECTION, NORMOCEPHALIC - Eye Exam Eye Exam: EOMI, Normal appearance Pupil Exam: NORMAL ACCOMODATION - ENT Exam ENT Exam: Mucous Membranes Dry, Normal External Ear Exam - Neck Exam Neck Exam: Full ROM. absent: Meningismus - Respiratory Exam Respiratory Exam: Rales, Rhonchi Additional comments: On Venti Mask - Cardiovascular Exam Cardiovascular Exam: REGULAR RHYTHM, +S1, +S2 - GI/Abdominal Exam GI & Abdominal Exam: Distended, Tenderness - Extremities Exam Additional comments: moves all extremities decrease periph pulses DP - Neurological Exam Neurological Exam: Awake Additional comments: lethargic follows simple commands no verbal output but seem to understand simple questions - Psychiatric Exam Psychiatric exam: Flat Affect - Skin Skin Exam: Dry, Pallor Assessment and Plan (1) Acute diffuse ischemia of intestine Status: Acute (2) Septic shock Status: Acute (3) Acute renal failure Status: Acute (4) Shock liver Status: Acute (5) A-fib Status: Acute (6) Thrombocytopenia Status: Acute (7) Aortic dissection, thoracoabdominal Status: Acute - Assessment and Plan (Free Text) Assessment: 51 y/o male with PMH Type A aortic aneurysm repair 2 weeks ago at [facility] by Dr. Wheat , back pain, HTN,cocaine abuse history ( as per friends) presented with severe sharp abdominal pain associated with nausea and emesis for two days. In ER, pt found to have intractable abdominal pain, disproportionate to exam. CT showed evidence of mesenteric ischemia/infarction. Seen by surgery in ER and taken to OR for emergent exploratory laparatomy by Dr. Sanchez that showed ischemic small bowel and right colon. No surgical intervention could be done, the patient was closed up and transferred to ICU for medical care. He was intubated for airway support was placed on on Fentanyl drip for sedation and pain control . He was weaned off and extubated and at present on Venturi mask afebrile, drowsy , off Fentanyl drip , moaning ,following simple commands. CTA abdomen showed ; 1. Apparent resolution of pneumatosis intestinalis, central mesenteric venous gas,superior mesenteric venous gas, as well as portal venous gas. Small and large bowel are limited evaluation due to lack of oral contrast administration this patient. Enteric colitis is not completely excluded. Pancolitis is a possibility as discussed above. No free intrarenal gas. Limited abdominal and pelvic ascites. 2. Nodular changes related to the right kidney are stable and remain potentially suspicious for solid nodule. 3. 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 At and below the level of the celiac artery origin, artifacts obscure evaluation of the abdominal aorta. Consider follow-up chest and abdomen CT with oral and intravenous contrast for greater characterization. Family in [place] notified of pt's condition 1.Septic shock secondary to ischemic bowel, with Multi-organ Failure extubated on Venti mask saturating 98% , afebrile off Fentanyl drip. on Morphine IV for pain control off levophed drip and with stable BP Critically ill with very poor prognosis General surgery, Vascular Sx, GI, pulmonary, ID on consult Continue Meropenem, Micafungin , Flagyl and Vancomycin 2. Thoracoabdominal Aortic Dissection, Recent Type A aortic aneurysm repair at [facility] CTA abd and pelvis showed Thoracoabdominal aortic dissection involving distal thoracic segment and proximal aortic segment. [facility] surgeon informed Vascular surgery consulted- discussed case with Dr Armendariz- rec to transfer pt back to [facility] for higher level of care. Contacted Dr Wheat from [facility]- he will review imaging and will get back to us re: transfer CTA of Chest 1. There is a type A aortic dissection which appears to arise approximately at the level of the right brachiocephalic artery takeoff. This extends into the right brachiocephalic artery and questionably into the base of the left subclavian artery. Additionally, dissection extends into the descending thoracic aorta as well as the upper abdominal aorta. This appears to resolve approximately at the level of the celiac trunk. Major thoracic and abdominal aortic branches appear adequately perfused. 2. There is a concern for possible thrombus within the right common iliac artery and extending into the right external iliac artery. This appears resolved by the level of the common femoral artery. 3. There appears to have been prior repair at the level of the aortic root. 4. Small pericardial effusion measuring 11 mm on series 5, image 128. 5. There are multifocal patchy opacities throughout both lungs with a mid upper lung zone predominance. These do demonstrate air bronchograms are most compatible to multifocal pneumonia. 6. Small bilateral pleural effusions with associated bibasilar compressive atelectasis. 7. There is reflux of contrast into the IVC and hepatic vein suggesting a degree of right heart failure. 8. Kidneys are unremarkable aside from an isodense lesion at the right midpole measuring 1.4 CM. This is incompletely characterized however is concerning for possible solid lesion. If indicated followup can be obtained. 9. There is mild ascites in both paracolic gutters. There is diffuse anasarca. 10. Diffusely fluid-filled small bowel loops without definite obstruction. Previously seen bowel pneumatosis is no longer identified. 11. There is diffuse fatty infiltration involving the wall of the colon. This is nonspecific but can be seen in long-standing inflammatory bowel disease. 3. Ischemic/Necrotic bowel Most likely secondary to hypoperfusion due to aortic dissection s/p exploratory laparatomy by general surgery showing necrotic small bowel and right colon No surgical intervention possible at this time Supportive care CTA abd and pelvis read as pancolitis. Surgery informed and following Heparin was stopped due to thrombocytopenia and possibility of HIT. Argatroban hepatically dosed was started and stopped due to bleeding from NGT and ETT Poor prognosis PICC line placed for TPN 4.Elevated transaminases likely Shock Liver improving NGT in place with bloody secretions 5. GOPI likely due to decrease perfusion Pt started on Hemodialysis on 10/08 Nephrology consult - Dr Claudia Law HD cath placed to right groin cont HD 6. Pt did not have CABG-- clarified with surgeon Cardio consult : Dr Putnam Echo showed normal EF 7.Paroxysmal A Fib with RVR episode resolved, now back in SR received Amiodarone, off drip Cardio consulted 8. Thrombocytopenia-- improving Heparin discontinued HIT antibody:weakly + Bloody secretions noted from NGT and ETT. Held Argatroban 9. Acute blood loss anemia/ UGI bleed With bloody output from NGTs on protonix drip monitor for now GI on consult Transfuse 2 units PRBC today Hgb 6.8 10. Coagulopathy monitor VIT K FFP transfusion given yesterday 6 units 11. Hypertension started labetalol IV 11.DVT prophylaxis SCD
--- NOTE | 2016-10-18 12:10 | RAD ---
HISTORY: possible bowl obstuction COMPARISON: No prior. FINDINGS: BOWEL: Nasogastric tube is in satisfactory position. There is a right femoral catheter. The abdomen is relatively gasless. No evidence of obstruction BONES: Normal. OTHER FINDINGS: None. IMPRESSION: No evidence of obstruction
--- NOTE | 2016-10-18 14:17 | CP.PCM.PN ---
Subjective - Date & Time of Evaluation Date of Evaluation: 10/18/16 Time of Evaluation: 14:17 - Subjective Subjective: ID note- Pt. seen and examined today in ICU. slightly more awake today. opens his eyes when his name is called. does not answer questions but does moan from time to time. NGt with continues dark blood drainage getting HD at bedside now Objective - Vital Signs/Intake and Output Vital Signs (last 24 hours): Temp Pulse Resp BP Pulse Ox 99.6 F 70 26 H 165/64 H 99 10/18/16 14:00 10/18/16 14:00 10/18/16 14:00 10/18/16 14:00 10/18/16 14:00 Intake and Output: 10/18/16 10/18/16 06:59 18:59 Intake Total 2245 1260 Output Total 320 Balance 1925 1260 - Medications Medications: Current Medications Acetaminophen (Tylenol 325mg Tab) 650 mg PO Q6 PRN PRN Reason: Fever >100.4 F Acetaminophen (Tylenol 650mg/20.3ml Solution Ud) 650 mg PO Q6 PRN PRN Reason: fever Last Admin: 10/18/16 13:11 Dose: 650 mg Albuterol/Ipratropium (Duoneb 3 Mg/0.5 Mg (3 Ml) Ud) 3 ml INH RQ6 PRN PRN Reason: Shortness of Breath Fat Emulsion Intravenous (Intralipid 20%) 250 ml IV DAILY [facility] Last Admin: 10/18/16 08:11 Dose: 250 ml Metronidazole (Flagyl 500mg/100ml Ns) 100 mls @ 100 mls/hr IVPB Q8 [facility] Last Admin: 10/18/16 08:04 Dose: 100 mls/hr Pantoprazole Sodium 40 mg/ (Sodium Chloride) 100 mls @ 20 mls/hr IVPB Q5H [facility] PRN Reason: 8 MG/HR Last Admin: 10/18/16 08:49 Dose: 20 mls/hr Meropenem 500 mg/ Sodium (Chloride) 100 mls @ 100 mls/hr IVPB Q12 [facility] Last Admin: 10/18/16 08:06 Dose: 100 mls/hr Vancomycin HCl 750 mg/ Sodium (Chloride) 250 mls @ 166.667 mls/hr IVPB QOTHERDAY [facility] Last Admin: 10/17/16 13:45 Dose: 166.667 mls/hr Micafungin Sodium 100 mg/ (Sodium Chloride) 100 mls @ 100 mls/hr IVPB DAILY [facility] Last Admin: 10/18/16 08:08 Dose: 100 mls/hr Labetalol HCl (Trandate) 40 mg IVP Q4 [facility] Last Admin: 10/18/16 12:18 Dose: 40 mg Labetalol HCl (Trandate) 20 mg IVP Q2 PRN PRN Reason: high blood pressure Last Admin: 10/18/16 10:34 Dose: 20 mg Morphine Sulfate (Morphine) 4 mg IVP Q4 PRN PRN Reason: Pain, severe (8-10) Last Admin: 10/17/16 11:52 Dose: 4 mg Ondansetron HCl (Zofran Inj) 4 mg IVP Q6 PRN PRN Reason: Nausea/Vomiting - Labs Labs: - Additional Findings Additional findings: Constitutional Appears: Toxic - Head Exam Head Exam: ATRAUMATIC - ENT Exam Additional comments: NGT- dark output - Respiratory Exam Additional comments: decreased breath sounds at bases no wheezing - Cardiovascular Exam Cardiovascular Exam: RRR, +S1, +S2 - GI/Abdominal Exam Additional comments: slightly less distended , hypoactivve BS midabdominal surgical site clean/ no discharge, no erythema tenderness to palp - Extremities Exam Extremities Exam: 2+ pitting edema b/l LE and upper ext - Neurological Exam Additional comments: awakens when name is called and moans Laboratory Results - last 72 hr 10/15/16 10/16/16 10/16/16 14:31 04:20 04:20 WBC 32.4 H RBC 3.66 L Hgb 10.0 L Hct 32.6 L MCV 88.9 MCH 27.4 MCHC 30.8 L RDW 17.1 H Plt Count 194 MPV 10.9 Neut % (Auto) 87.0 H Lymph % (Auto) 6.3 L [place] % (Auto) 6.3 Eos % (Auto) 0.1 Baso % (Auto) 0.3 Neut # 28.2 H Lymph # 2.1 [place] # 2.0 H Eos # 0.0 Baso # 0.1 Neutrophils % (Manual) 84 H Band Neutrophils % 3 H Lymphocytes % (Manual) 7 L Monocytes % (Manual) 6 Nucleated RBC % 13 H Platelet Estimate Normal Polychromasia Slight Anisocytosis (manual) Slight PT 36.0 H INR 3.1 H APTT 57.6 H D Sodium Potassium Chloride Carbon Dioxide Anion Gap BUN Creatinine Est GFR ( Amer) Est GFR (Non-Af Amer) Random Glucose Calcium Phosphorus Magnesium Total Bilirubin AST ALT Alkaline Phosphatase Total Protein Albumin Globulin Albumin/Globulin Ratio UF Heparin Interp Heparin-induced Plt Ab VALERY UFH Low Dose 0.1 VALERY UFH Low Dose 0.5 VALERY UFH High Dose 100 HIV 1&2 Antibody Screen Negative Blood Type Antibody Screen Crossmatch BBK History Checked 10/16/16 10/16/16 10/16/16 04:20 08:55 12:02 WBC RBC Hgb Hct MCV MCH MCHC RDW Plt Count MPV Neut % (Auto) Lymph % (Auto) [place] % (Auto) Eos % (Auto) Baso % (Auto) Neut # Lymph # [place] # Eos # Baso # Neutrophils % (Manual) Band Neutrophils % Lymphocytes % (Manual) Monocytes % (Manual) Nucleated RBC % Platelet Estimate Polychromasia Anisocytosis (manual) PT INR APTT Sodium 140 Potassium 5.0 Chloride 99 Carbon Dioxide 19 L Anion Gap 27 H BUN 58 H Creatinine 5.3 H Est GFR ( Amer) 14 Est GFR (Non-Af Amer) 12 Random Glucose 80 Calcium 8.5 Phosphorus Magnesium Total Bilirubin AST ALT Alkaline Phosphatase Total Protein Albumin Globulin Albumin/Globulin Ratio UF Heparin Interp Negative Heparin-induced Plt Ab Weak positive H VALERY UFH Low Dose 0.1 0 VALERY UFH Low Dose 0.5 0 VALERY UFH High Dose 100 0 HIV 1&2 Antibody Screen Blood Type Antibody Screen Crossmatch BBK History Checked 10/17/16 10/17/16 10/17/16 04:35 04:35 04:35 WBC 14.9 H D RBC 2.87 L Hgb 8.1 L Hct 25.4 L MCV 88.5 MCH 28.4 MCHC 32.0 L RDW 17.1 H Plt Count 196 MPV 11.0 Neut % (Auto) 77.2 H Lymph % (Auto) 12.2 L [place] % (Auto) 9.3 Eos % (Auto) 0.6 Baso % (Auto) 0.7 Neut # 11.5 H Lymph # 1.8 [place] # 1.4 H Eos # 0.1 Baso # 0.1 Neutrophils % (Manual) Band Neutrophils % Lymphocytes % (Manual) Monocytes % (Manual) Nucleated RBC % Platelet Estimate Polychromasia Anisocytosis (manual) PT 33.0 H INR 2.9 H APTT 60.3 H Sodium 141 Potassium 5.0 Chloride 101 Carbon Dioxide 23 Anion Gap 23 H BUN 107 H* D Creatinine 7.3 H Est GFR ( Amer) 10 Est GFR (Non-Af Amer) 8 Random Glucose 157 H Calcium 7.8 L Phosphorus Magnesium Total Bilirubin 9.7 H AST 114 H ALT 79 H Alkaline Phosphatase 111 Total Protein 6.8 Albumin 2.9 L Globulin 3.9 Albumin/Globulin Ratio 0.7 L UF Heparin Interp Heparin-induced Plt Ab VALERY UFH Low Dose 0.1 VALERY UFH Low Dose 0.5 VALERY UFH High Dose 100 HIV 1&2 Antibody Screen Blood Type Antibody Screen Crossmatch BBK History Checked 10/18/16 10/18/16 10/18/16 04:20 04:20 04:20 WBC 8.5 RBC 2.38 L Hgb 6.8 L Hct 21.6 L MCV 90.6 D MCH 28.7 MCHC 31.6 L RDW 17.5 H Plt Count 159 MPV 10.7 Neut % (Auto) 70.5 Lymph % (Auto) 15.6 L [place] % (Auto) 11.9 H Eos % (Auto) 1.4 Baso % (Auto) 0.6 Neut # 6.0 Lymph # 1.3 [place] # 1.0 H Eos # 0.1 Baso # 0.0 Neutrophils % (Manual) Band Neutrophils % Lymphocytes % (Manual) Monocytes % (Manual) Nucleated RBC % Platelet Estimate Polychromasia Anisocytosis (manual) PT INR APTT 41.7 H D Sodium 140 Potassium 4.0 Chloride 99 Carbon Dioxide 26 Anion Gap 19 BUN 64 H Creatinine 5.2 H Est GFR ( Amer) 14 Est GFR (Non-Af Amer) 12 Random Glucose 196 H Calcium 7.8 L Phosphorus 7.3 H Magnesium 2.6 H Total Bilirubin 9.7 H AST 111 H ALT 65 Alkaline Phosphatase 95 Total Protein 6.7 Albumin 3.0 L Globulin 3.7 Albumin/Globulin Ratio 0.8 L UF Heparin Interp Heparin-induced Plt Ab VALERY UFH Low Dose 0.1 VALERY UFH Low Dose 0.5 VALERY UFH High Dose 100 HIV 1&2 Antibody Screen Blood Type Antibody Screen Crossmatch BBK History Checked 10/18/16 10/18/16 10/18/16 08:35 08:35 18:41 WBC 8.8 RBC 3.22 L Hgb 9.3 L D Hct 29.2 L MCV 90.8 MCH 29.0 MCHC 32.0 L RDW 18.2 H Plt Count 163 MPV 10.6 Neut % (Auto) 74.7 Lymph % (Auto) 11.9 L [place] % (Auto) 10.3 H Eos % (Auto) 2.4 Baso % (Auto) 0.7 Neut # 6.6 Lymph # 1.0 [place] # 0.9 H Eos # 0.2 Baso # 0.1 Neutrophils % (Manual) Band Neutrophils % Lymphocytes % (Manual) Monocytes % (Manual) Nucleated RBC % Platelet Estimate Polychromasia Anisocytosis (manual) PT 19.8 H D INR 1.7 H D APTT Sodium Potassium Chloride Carbon Dioxide Anion Gap BUN Creatinine Est GFR ( Amer) Est GFR (Non-Af Amer) Random Glucose Calcium Phosphorus Magnesium Total Bilirubin AST ALT Alkaline Phosphatase Total Protein Albumin Globulin Albumin/Globulin Ratio UF Heparin Interp Heparin-induced Plt Ab VALERY UFH Low Dose 0.1 VALERY UFH Low Dose 0.5 VALERY UFH High Dose 100 HIV 1&2 Antibody Screen Blood Type O POSITIVE Antibody Screen Negative Crossmatch See Detail BBK History Checked Patient has bt Microbiology 10/13/16 14:10 Blood-Venous Blood Culture - Final NO GROWTH AFTER 5 DAYS 10/13/16 14:10 Blood-Venous Gram Stain - Final TEST NOT PERFORMED 10/13/16 14:10 Blood-Venous Blood Culture - Final NO GROWTH AFTER 5 DAYS 10/13/16 14:10 Blood-Venous Gram Stain - Final TEST NOT PERFORMED 10/13/16 15:35 Urine,Taylor Urine Culture - Final No Growth (<1,000 CFU/ML) 10/13/16 15:35 Trachasp Gram Stain - Final 10/13/16 15:35 Trachasp Sputum Culture - Final Yeast Species 10/06/16 11:10 Nose MRSA Culture (Admit) - Final MRSA NOT DETECTED Assessment and Plan (1) Acute diffuse ischemia of intestine Status: Acute (2) Acute renal failure Status: Acute (3) Hx of CABG Status: Acute (4) CAD (coronary artery disease) Status: Deleted (5) Shock liver Status: Acute (6) Severe sepsis Status: Acute - Assessment and Plan (Free Text) Assessment: A/P- 51 year old male with HTN s/p disected aortic aneurysm repair 2 weeks ago at [facility] was admitted on 10/06/2016 with abd pain found to have mesenteric ischemia, non operable and had remained on the vent since post ex lap in ICU and has developed ARF on emergent HD , sepsis, shock liver, respiratory failure and septic. s/p extubation 4 days ago fever 100.2 today -first time since this admission leukocytosis has resolved today. blood cx- neg x 2 urine cx- neg trach asp cx- yeast species 1.mesenteric ischemia 2. ARF on HD 3.shock liver 4.sepsis 5. s/p thoracoabdominal aortic aneurysm disection repair 2 weeks ago at [facility] plan- advise to continue with IV meropenem day #6. advise to continue with HD dose IV vancomycin as well. keep trough <15. continue with IV flagyl as well. advise to continue with antifungal as well, day #4. check blood cx x 2 in light of new low grade fever. Prognosis poor. ICU time 45 minutes.
[2016-10-18] MEDS ORDERED: AMINO ACIDS IV ONE (15:30)
[2016-10-18] MEDS ORDERED: MULTIVITAMIN IV ONE (15:30)
[2016-10-18] MEDS ORDERED: CALCIUM GLUCONATE IV ONE ×2 (15:30)
[2016-10-18] MEDS ORDERED: SODIUM ACETATE IV ONE ×2 (15:30)
[2016-10-18] MEDS ORDERED: DEXTROSE IV ONE (15:30)
[2016-10-18] MEDS ORDERED: [UNRECOGNIZED DRUG - OTHER] IV ONE (15:30)
[2016-10-18] MEDS: Morphine 4 MG/ML VIAL IVP PRN (16:39)
--- NOTE | 2016-10-18 18:41 | CP.PCM.PN ---
Subjective - Date & Time of Evaluation Date of Evaluation: 10/18/16 Time of Evaluation: 13:00 - Subjective Subjective: More verbal, no complaints Seen on HD Objective - Vital Signs/Intake and Output Vital Signs (last 24 hours): Temp Pulse Resp BP Pulse Ox 98.9 F 71 26 H 137/64 97 10/18/16 16:00 10/18/16 18:00 10/18/16 18:00 10/18/16 18:00 10/18/16 18:00 Intake and Output: 10/18/16 10/18/16 06:59 18:59 Intake Total 2245 1680 Output Total 320 250 Balance 1925 1430 - Medications Medications: Current Medications Acetaminophen (Tylenol 325mg Tab) 650 mg PO Q6 PRN PRN Reason: Fever >100.4 F Acetaminophen (Tylenol 650mg/20.3ml Solution Ud) 650 mg PO Q6 PRN PRN Reason: fever Last Admin: 10/18/16 13:11 Dose: 650 mg Albuterol/Ipratropium (Duoneb 3 Mg/0.5 Mg (3 Ml) Ud) 3 ml INH RQ6 PRN PRN Reason: Shortness of Breath Metronidazole (Flagyl 500mg/100ml Ns) 100 mls @ 100 mls/hr IVPB Q8 [facility] Last Admin: 10/18/16 16:40 Dose: 100 mls/hr Pantoprazole Sodium 40 mg/ (Sodium Chloride) 100 mls @ 20 mls/hr IVPB Q5H [facility] PRN Reason: 8 MG/HR Last Admin: 10/18/16 16:40 Dose: 20 mls/hr Meropenem 500 mg/ Sodium (Chloride) 100 mls @ 100 mls/hr IVPB Q12 [facility] Last Admin: 10/18/16 08:06 Dose: 100 mls/hr Vancomycin HCl 750 mg/ Sodium (Chloride) 250 mls @ 166.667 mls/hr IVPB QOTHERDAY [facility] Last Admin: 10/17/16 13:45 Dose: 166.667 mls/hr Micafungin Sodium 100 mg/ (Sodium Chloride) 100 mls @ 100 mls/hr IVPB DAILY [facility] Last Admin: 10/18/16 08:08 Dose: 100 mls/hr Sodium Acetate 100 meq/Calcium Gluconate 4.5 meq/Multivitamins/Vitamin C 10 ml/ Chromium/Copper/Manganese/Zinc 3 ml/ Amino Acids 1,072.6774 mls @ 60 mls/hr IV .[id number] ONE Stop: 10/19/16 09:22 Sodium Acetate 100 meq/Calcium Gluconate 4.5 meq/Amino Acids 1,059.6774 mls @ 60 mls/hr IV .[id number] ONE Stop: 10/19/16 09:09 Labetalol HCl (Trandate) 40 mg IVP Q4 [facility] Last Admin: 10/18/16 16:39 Dose: 40 mg Labetalol HCl (Trandate) 20 mg IVP Q2 PRN PRN Reason: high blood pressure Last Admin: 10/18/16 10:34 Dose: 20 mg Morphine Sulfate (Morphine) 4 mg IVP Q4 PRN PRN Reason: Pain, severe (8-10) Last Admin: 10/18/16 16:39 Dose: 4 mg Ondansetron HCl (Zofran Inj) 4 mg IVP Q6 PRN PRN Reason: Nausea/Vomiting - Labs Labs: 10/18/16 04:20 10/18/16 04:20 PT 19.8 Seconds (9.8-13.1) H D 10/18/16 08:35 INR 1.7 (0.9-1.2) H D 10/18/16 08:35 APTT 41.7 Seconds (25.6-37.1) H D 10/18/16 04:20 - Head Exam Head Exam: ATRAUMATIC - Eye Exam Eye Exam: Normal appearance - ENT Exam ENT Exam: Mucous Membranes Dry - Respiratory Exam Respiratory Exam: NORMAL BREATHING PATTERN - Cardiovascular Exam Cardiovascular Exam: +S1, +S2 - GI/Abdominal Exam GI & Abdominal Exam: Normal Bowel Sounds - Extremities Exam Extremities Exam: Pedal Edema Assessment and Plan (1) Heparin allergy Assessment & Plan: serotonin release assay is negative; the patient does not have heparin induced thrombocytopenia Status: Acute (2) Leukocytosis Assessment & Plan: on antibiotics Status: Acute (3) Anemia Assessment & Plan: GI bleeding normal iron, b12/folate stores transfusion support PRN Status: Acute (4) Coagulopathy Assessment & Plan: s/p anticoagulation s/p FFP and vit k Status: Acute
[2016-10-18 18:45] LABS: BASO # 0.1 K/uL (0.0-0.2); BASO % 0.7 % (0.0-2.0); EOS # 0.2 K/uL (0.0-0.7); EOS % 2.4 % (0.0-4.0); HEMOGLOBIN 9.3 g/dL (12.0-18.0); LYMPH % 11.9 % (20.0-40.0); MEAN CELL VOLUME 90.8 fl (80.0-94.0); MEAN PLATELET VOLUME 10.6 fl (7.2-11.7); MONO # 0.9 K/uL (0.0-0.8); MONO % 10.3 % (0.0-10.0); NEUT # 6.6 K/uL (1.8-7.0); NEUT % 74.7 % (50.0-75.0); NRBC % 11.4 % (0.0-0.0); RBC 3.22 Mil/uL (4.40-5.90); RED CELL DISTRIBUTION WIDTH 18.2 % (11.5-14.5); WHITE BLOOD COUNT 8.8 K/uL (4.8-10.8)
[2016-10-19] MEDS: metroNIDAZOLE 500mg/100ml NS 100 ML IVPB SCH ×3 (00:10→16:01)
[2016-10-19] MEDS: Morphine 4 MG/ML VIAL IVP PRN ×2 (00:11→15:58)
[2016-10-19] MEDS: Labetalol 5 mg/ml Inj 20ML IVP SCH ×6 (01:15→20:29)
[2016-10-19] MEDS: Pantoprazole 40 MG in Sodium Chloride 0.9% 100 ML IVPB SCH ×6 (02:48→18:37)
[2016-10-19 05:40] LABS: BASO % 0.5 % (0.0-2.0); EOS # 0.2 K/uL (0.0-0.7); EOS % 2.9 % (0.0-4.0); HEMOGLOBIN 9.6 g/dL (12.0-18.0); LYMPH % 12.5 % (20.0-40.0); MEAN CELL VOLUME 92.5 fl (80.0-94.0); MEAN CORPUSCULAR HEMOGLOBIN 29.8 pg (27.0-31.0); MEAN CORPUSCULAR HGB CONC 32.2 g/dL (33.0-37.0); MONO # 1.3 K/uL (0.0-0.8); MONO % 15.1 % (0.0-10.0); NEUT # 5.8 K/uL (1.8-7.0); NRBC % 11.9 % (0.0-0.0); RBC 3.21 Mil/uL (4.40-5.90); RED CELL DISTRIBUTION WIDTH 18.5 % (11.5-14.5); WHITE BLOOD COUNT 8.3 K/uL (4.8-10.8)
[2016-10-19 05:54] LABS: INR 1.7 (0.9-1.2); PROTHROMBIN TIME 19.2 Seconds (9.8-13.1)
--- NOTE | 2016-10-19 07:28 | CP.CCUPN ---
<Kenan Carbone - Last Filed: 10/19/16 15:23> CCU Subjective - Physician Review Subjective (Free Text): Patient is seen at bedside. He is making moaning noises, but when asks if he is in pain, patient shakes his head no. He is not following commands. * [facility] called yesterday, stating they don't think he is a candidate for surgery and they don't think there is anything they can do for him. * [facility] intestinal rehab and transplant center: Dr. Noguera was contacted today, he does not believe surgical intervential for the bowl is needed. 10/19/16 08:39 10/19/16 10:03 10/19/16 13:18 CCU Objective - Vital Signs / Intake & Output Vital Signs (Last 4 hours): Vital Signs Temp Pulse Resp BP Pulse Ox 10/19/16 06:00 73 36 H 150/59 L 96 10/19/16 05:05 79 154/71 H 10/19/16 04:00 99.5 F 79 31 H 154/65 H 98 Intake and Output (Last 8hrs): Intake & Output 10/18/16 10/19/16 10/19/16 22:59 06:59 14:59 Intake Total 780 740 Output Total 250 525 Balance 530 215 Intake: IV 80 Intake, Piggyback 260 260 Oral 20 TPN/PPN 420 480 Output: Gastric Amount 250 500 Stomach 250 500 Urine 25 Urethral (Taylor) 25 - Physical Exam Head: Positive for: Atraumatic, Normocephalic Pupils: Positive for: PERRL Conjunctiva: Positive for: Normal. Negative for: Icteric Ears: Positive for: Normal Mouth: Positive for: Moist Mucous Membranes, Other (Dry Blood noticed in oral region. Blood noted via NG tube suction) Nose (External): Positive for: Atraumatic Nose (Internal): Positive for: Normal Inspection Neck: Positive for: Trachea Midline. Negative for: JVD Respiratory/Chest: Positive for: Decreased Breath Sounds, Rhonchi Cardiovascular: Positive for: Regular Rate and Rhythm, Tachycardic. Negative for: Murmurs, Rub Abdomen: Positive for: Tenderness (Generalized tenderness to palpate. Dressing clean dry and intact), Distention, Guarding Genitourinary Male: Positive for: Testicle Swelling Upper Extremity: Positive for: Normal Inspection, Edema Lower Extremity: Positive for: Cyanosis, Swelling, Other (Warm lower extremity b /l). Negative for: CALF TENDERNESS Neurological: Positive for: Other (Patient is able to follow comand and move all extremities.) Skin: Positive for: Warm, Other (+ anasarca). Negative for: Rashes Psychiatric: Positive for: Alert, Other (sedated). Negative for: Oriented x 3 - Medications Active Medications: Active Medications Generic Name Dose Route Start Last Admin Trade Name Freq PRN Reason Stop Dose Admin Acetaminophen 650 mg 10/06/16 15:27 Tylenol 325mg Tab PO Q6 PRN Fever >100.4 F Acetaminophen 650 mg 10/18/16 04:24 10/18/16 20:40 Tylenol 650mg/20.3ml Solution Ud PO 650 mg Q6 PRN Administration fever Albuterol/Ipratropium 3 ml 10/16/16 05:44 Duoneb 3 Mg/0.5 Mg (3 Ml) Ud INH RQ6 PRN Shortness of Breath Metronidazole 100 mls @ 100 mls/hr 10/08/16 11:15 10/19/16 00:10 Flagyl 500mg/100ml Ns IVPB 100 mls/hr Q8 RUTHY Administration Pantoprazole Sodium 40 mg/ 100 mls @ 20 mls/hr 10/12/16 10:15 10/19/16 02:48 Sodium Chloride IVPB 20 mls/hr Q5H RUTHY Administration 8 MG/HR Meropenem 500 mg/ Sodium 100 mls @ 100 mls/hr 10/13/16 21:00 10/18/16 20:25 Chloride IVPB 100 mls/hr Q12 RUTHY Administration Vancomycin HCl 750 mg/ Sodium 250 mls @ 166.667 mls/hr 10/15/16 09:00 13:45 Chloride IVPB 166.667 mls/hr QOTHERDAY RUTHY Administration Micafungin Sodium 100 mg/ 100 mls @ 100 mls/hr 10/15/16 14:00 10/18/16 08:08 Sodium Chloride IVPB 100 mls/hr DAILY RUTHY Administration Sodium Acetate 100 meq/ 1,072.6774 mls @ 60 mls/hr 10/18/16 15:30 Calcium Gluconate 4.5 meq/ IV 10/19/16 09:22 Multivitamins/Vitamin C 10 ml/ .[id number] ONE Chromium/Copper/Manganese/ Zinc 3 ml/ Amino Acids Sodium Acetate 100 meq/ 1,059.6774 mls @ 60 mls/hr 10/18/16 15:30 Calcium Gluconate 4.5 meq/ IV 10/19/16 09:09 Amino Acids .[id number] Labetalol HCl 40 mg 10/17/16 10:21 10/19/16 05:05 Trandate IVP 40 mg Q4 RUTHY Administration Labetalol HCl 20 mg 10/17/16 10:45 10/18/16 22:58 Trandate IVP 20 mg Q2 PRN Administration high blood pressure Morphine Sulfate 4 mg 10/14/16 16:50 10/19/16 00:11 Morphine IVP 4 mg Q4 PRN Administration Pain, severe (8-10) Ondansetron HCl 4 mg 10/06/16 15:27 Zofran Inj IVP Q6 PRN Nausea/Vomiting - Patient Studies Lab Studies: Microbiology Studies 10/13/16 14:10 Blood Culture - Final Blood-Venous NO GROWTH AFTER 5 DAYS Gram Stain - Final TEST NOT PERFORMED 10/13/16 14:10 Blood Culture - Final Blood-Venous NO GROWTH AFTER 5 DAYS Gram Stain - Final TEST NOT PERFORMED Lab Studies 10/19/16 10/19/16 10/19/16 Range/Units 04:20 04:20 04:20 WBC 8.3 (4.8-10.8) K/uL RBC 3.21 L (4.40-5.90) Mil/uL Hgb 9.6 L (12.0-18.0) g/dL Hct 29.7 L (35.0-51.0) % MCV 92.5 (80.0-94.0) fl MCH 29.8 (27.0-31.0) pg MCHC 32.2 L (33.0-37.0) g/dL RDW 18.5 H (11.5-14.5) % Plt Count 169 (130-400) K/uL MPV 11.0 (7.2-11.7) fl Neut % (Auto) 69.0 (50.0-75.0) % Lymph % (Auto) 12.5 L (20.0-40.0) % [place] % (Auto) 15.1 H (0.0-10.0) % Eos % (Auto) 2.9 (0.0-4.0) % Baso % (Auto) 0.5 (0.0-2.0) % Neut # 5.8 (1.8-7.0) K/uL Lymph # 1.0 (1.0-4.3) K/uL [place] # 1.3 H (0.0-0.8) K/uL Eos # 0.2 (0.0-0.7) K/uL Baso # 0.0 (0.0-0.2) K/uL PT 19.2 H (9.8-13.1) Seconds INR 1.7 H (0.9-1.2) Ferritin 207.0 ng/mL UF Heparin Interp (Negative) Vitamin B12 892 (239-931) pg/mL Heparin-induced Plt Ab (Negative) VALERY UFH Low Dose 0.1 % Release VALERY UFH Low Dose 0.5 % Release VALERY UFH High Dose 100 % Release Blood Type Antibody Screen Crossmatch BBK History Checked 10/18/16 10/18/16 10/18/16 Range/Units 18:41 08:35 08:35 WBC 8.8 (4.8-10.8) K/uL RBC 3.22 L (4.40-5.90) Mil/uL Hgb 9.3 L D (12.0-18.0) g/dL Hct 29.2 L (35.0-51.0) % MCV 90.8 (80.0-94.0) fl MCH 29.0 (27.0-31.0) pg MCHC 32.0 L (33.0-37.0) g/dL RDW 18.2 H (11.5-14.5) % Plt Count 163 (130-400) K/uL MPV 10.6 (7.2-11.7) fl Neut % (Auto) 74.7 (50.0-75.0) % Lymph % (Auto) 11.9 L (20.0-40.0) % [place] % (Auto) 10.3 H (0.0-10.0) % Eos % (Auto) 2.4 (0.0-4.0) % Baso % (Auto) 0.7 (0.0-2.0) % Neut # 6.6 (1.8-7.0) K/uL Lymph # 1.0 (1.0-4.3) K/uL Searcy # 0.9 H (0.0-0.8) K/uL Eos # 0.2 (0.0-0.7) K/uL Baso # 0.1 (0.0-0.2) K/uL PT 19.8 H D (9.8-13.1) Seconds INR 1.7 H D (0.9-1.2) Ferritin ng/mL UF Heparin Interp (Negative) Vitamin B12 (239-931) pg/mL Heparin-induced Plt Ab (Negative) VALERY UFH Low Dose 0.1 % Release VALERY UFH Low Dose 0.5 % Release VALERY UFH High Dose 100 % Release Blood Type O POSITIVE Antibody Screen Negative Crossmatch See Detail BBK History Checked Patient has bt 10/16/16 10/16/16 Range/Units 12:02 08:55 WBC (4.8-10.8) K/uL RBC (4.40-5.90) Mil/uL Hgb (12.0-18.0) g/dL Hct (35.0-51.0) % MCV (80.0-94.0) fl MCH (27.0-31.0) pg MCHC (33.0-37.0) g/dL RDW (11.5-14.5) % Plt Count (130-400) K/uL MPV (7.2-11.7) fl Neut % (Auto) (50.0-75.0) % Lymph % (Auto) (20.0-40.0) % Searcy % (Auto) (0.0-10.0) % Eos % (Auto) (0.0-4.0) % Baso % (Auto) (0.0-2.0) % Neut # (1.8-7.0) K/uL Lymph # (1.0-4.3) K/uL Searcy # (0.0-0.8) K/uL Eos # (0.0-0.7) K/uL Baso # (0.0-0.2) K/uL PT (9.8-13.1) Seconds INR (0.9-1.2) Ferritin ng/mL UF Heparin Interp Negative (Negative) Vitamin B12 (239-931) pg/mL Heparin-induced Plt Ab Weak positive H (Negative) VALERY UFH Low Dose 0.1 0 % Release VALERY UFH Low Dose 0.5 0 % Release VALERY UFH High Dose 100 0 % Release Blood Type Antibody Screen Crossmatch BBK History Checked Laboratory Results - last 24 hr 10/16/16 10/16/16 10/18/16 08:55 12:02 08:35 WBC RBC Hgb Hct MCV MCH MCHC RDW Plt Count MPV Neut % (Auto) Lymph % (Auto) Searcy % (Auto) Eos % (Auto) Baso % (Auto) Neut # Lymph # [place] # Eos # Baso # PT 19.8 H D INR 1.7 H D Ferritin UF Heparin Interp Negative Vitamin B12 Heparin-induced Plt Ab Weak positive H VALERY UFH Low Dose 0.1 0 VALERY UFH Low Dose 0.5 0 VALERY UFH High Dose 100 0 Blood Type Antibody Screen Crossmatch BBK History Checked 10/18/16 10/18/16 10/19/16 08:35 18:41 04:20 WBC 8.8 8.3 RBC 3.22 L 3.21 L Hgb 9.3 L D 9.6 L Hct 29.2 L 29.7 L MCV 90.8 92.5 MCH 29.0 29.8 MCHC 32.0 L 32.2 L RDW 18.2 H 18.5 H Plt Count 163 169 MPV 10.6 11.0 Neut % (Auto) 74.7 69.0 Lymph % (Auto) 11.9 L 12.5 L Sear[place] % (Auto) 10.3 H 15.1 H Eos % (Auto) 2.4 2.9 Baso % (Auto) 0.7 0.5 Neut # 6.6 5.8 Lymph # 1.0 1.0 Searcy # 0.9 H 1.3 H Eos # 0.2 0.2 Baso # 0.1 0.0 PT INR Ferritin UF Heparin Interp Vitamin B12 Heparin-induced Plt Ab VALERY UFH Low Dose 0.1 VALERY UFH Low Dose 0.5 VALERY UFH High Dose 100 Blood Type O POSITIVE Antibody Screen Negative Crossmatch See Detail BBK History Checked Patient has bt 10/19/16 10/19/16 04:20 04:20 WBC RBC Hgb Hct MCV MCH MCHC RDW Plt Count MPV Neut % (Auto) Lymph % (Auto) [place] % (Auto) Eos % (Auto) Baso % (Auto) Neut # Lymph # Searcy # Eos # Baso # PT 19.2 H INR 1.7 H Ferritin 207.0 UF Heparin Interp Vitamin B12 892 Heparin-induced Plt Ab VALERY UFH Low Dose 0.1 VALERY UFH Low Dose 0.5 VALERY UFH High Dose 100 Blood Type Antibody Screen Crossmatch BBK History Checked Review of Systems - Review of Systems All systems: reviewed and no additional remarkable complaints except Assessment/Plan - Assessment and Plan (Free Text) Assessment: 51 YO M w/ PMH Type A aortic aneursym repair 2 weeks ago at [facility] by Dr. Wheat, cocaine abuse had presented to the ER for abdominal pain w/ nausea and emesis. Pt was found to have evidence of mesenteric ischemia/ infarction on CT and a emergent exploratory laprotamy was done and they were unable to resect the bowl because it extended from ligament of teres to the transverse colon. [facility] called about the 1) Septic Shock, secondary to ischemic bowl - Pt has been spiking low grade fevers w/ a TMAX of 100.2. Blood cultures have been ordered - Spoke with Dr. Noguera at [facility]. Dr. Noguera does not think any surgical intervention is needed for patients bowl, he does not think it is necrotic. 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 - WBC has trended down to 8.3 - Lactic acid has trended down to 2.6. Procalcitonin has trended down to 43 - Patient has been extubated and is currently on a venti mask saturating at 98%. - Patient is off of pressers and blood pressure remains stable - Argatroban was held due to GI bleed noticed via NG tube. INR: 1.7 s/p 6 units of FFP - Pain controlled with Morphine PRN. He has not been requesting any pain medications - Cont w/ Cefapime, Microfungin, Flagyl, and Vancomycin - Vanco trough 7.3. Continue vancomycin T, TH, Sat post dialysis - F/ U Blood culture 2)Recent aortic aneurysm rupture repair - Spoke to [facility] regarding the aortic dissection, they don't believe he is a candidate for surgery, they believe it needs to be medically managed. - Most recent CT showed thracoabdominal aortic dissection. - S/P 2 units hb is stable at 9.6 - Strict control of BP 3) Mesentric ischemia? - Most likely secondary to thracoabdominal aortic dissection. - PICC line has been placed; receiving TPN - Will start nutrition via NG tube today starting at 10, see how patient tolerates it 3) Hypertension - Blood pressure this morning 148/62 - Labetolol 40 mg Q4. Labetolol 20mg Q2 PRN - Nitogylcerin started - Strict BP controll 4.) Elevated liver enzymes most likely secondary to mesenteric ischemia - AST:166, ALT:58 - Total bilirubin: 9.9 - GI consult appreciated - Continue to monitor - F/U with direct and indirect bilim, LDH, CMP 5. Renal failure secondary to decrease perfusion - Receiving HD yesterday. - BUN:50 Creatinine:4.7 - F/U w/ CMP, Mg+, Phos - Dr. Zavaleta on consult 6) A Fib ( Resolved) - Resolved after receiving amiodarone. - Cardio consult appreciated 7) Upper GI Bleed - INR 1.7 - Decreasd blood noted via NG tube - Continue IV protonix - Hold Argatroban. - Continue serial PTT - Recieved 6 units of FFP yesterday. 8) thrombocytopenia ( Resolved) - Heparin induced platelet antibody weakly positive. VALERY was negative - HIT has been rulled out - Platelet today 169 9) Anemia - S/P 2 units PRBC is stable at 9.6 - Heme onc consult appreciated - NG tube shows blood - F/U w/ ferritin, retic count, b12, folate WNL - Most likely secondary to blood loss 10) DVT prophylaxis - Hold argatriban b/c of GI bleed. Monitor PTT - SCD <Corey Robledo - Last Filed: 10/19/16 17:15> Assessment/Plan - Assessment and Plan (Free Text) Plan: Attestation: Patient seen and examined at the bedside with Resident Dr. Ros Carbone; and I agree with his outline of plans and management as documented and discussed on AM rounds reflecting my review of all applicable clinical data, and participation in the care of the patient throughout the day in ICU; today, October 19, 2016.
--- NOTE | 2016-10-19 07:37 | CP.PCM.PN ---
Subjective - Date & Time of Evaluation Date of Evaluation: 10/19/16 Time of Evaluation: 07:36 - Subjective Subjective: General Surgery Progress note. Dr. Weiss Pt seen and examined at bedside. No acute events overnight. Patient moans and groans. Does not follow commands. NG tube in place. Taylor in place. Objective - Vital Signs/Intake and Output Vital Signs (last 24 hours): Temp Pulse Resp BP Pulse Ox 99.5 F 73 36 H 150/59 L 96 10/19/16 04:00 10/19/16 06:00 10/19/16 06:00 10/19/16 06:00 10/19/16 06:00 Intake and Output: 10/19/16 10/19/16 06:59 18:59 Intake Total 1100 Output Total 525 Balance 575 - Medications Medications: Current Medications Acetaminophen (Tylenol 325mg Tab) 650 mg PO Q6 PRN PRN Reason: Fever >100.4 F Acetaminophen (Tylenol 650mg/20.3ml Solution Ud) 650 mg PO Q6 PRN PRN Reason: fever Last Admin: 10/18/16 20:40 Dose: 650 mg Albuterol/Ipratropium (Duoneb 3 Mg/0.5 Mg (3 Ml) Ud) 3 ml INH RQ6 PRN PRN Reason: Shortness of Breath Metronidazole (Flagyl 500mg/100ml Ns) 100 mls @ 100 mls/hr IVPB Q8 [facility] Last Admin: 10/19/16 00:10 Dose: 100 mls/hr Pantoprazole Sodium 40 mg/ (Sodium Chloride) 100 mls @ 20 mls/hr IVPB Q5H RUTHY PRN Reason: 8 MG/HR Last Admin: 10/19/16 02:48 Dose: 20 mls/hr Meropenem 500 mg/ Sodium (Chloride) 100 mls @ 100 mls/hr IVPB Q12 [facility] Last Admin: 10/18/16 20:25 Dose: 100 mls/hr Vancomycin HCl 750 mg/ Sodium (Chloride) 250 mls @ 166.667 mls/hr IVPB QOTHERDAY [facility] Last Admin: 10/17/16 13:45 Dose: 166.667 mls/hr Micafungin Sodium 100 mg/ (Sodium Chloride) 100 mls @ 100 mls/hr IVPB DAILY [facility] Last Admin: 10/18/16 08:08 Dose: 100 mls/hr Sodium Acetate 100 meq/Calcium Gluconate 4.5 meq/Multivitamins/Vitamin C 10 ml/ Chromium/Copper/Manganese/Zinc 3 ml/ Amino Acids 1,072.6774 mls @ 60 mls/hr IV .[id number] ONE Stop: 10/19/16 09:22 Sodium Acetate 100 meq/Calcium Gluconate 4.5 meq/Amino Acids 1,059.6774 mls @ 60 mls/hr IV .[id number] ONE Stop: 10/19/16 09:09 Labetalol HCl (Trandate) 40 mg IVP Q4 RUTHY Last Admin: 10/19/16 05:05 Dose: 40 mg Labetalol HCl (Trandate) 20 mg IVP Q2 PRN PRN Reason: high blood pressure Last Admin: 10/18/16 22:58 Dose: 20 mg Morphine Sulfate (Morphine) 4 mg IVP Q4 PRN PRN Reason: Pain, severe (8-10) Last Admin: 10/19/16 00:11 Dose: 4 mg Ondansetron HCl (Zofran Inj) 4 mg IVP Q6 PRN PRN Reason: Nausea/Vomiting - Labs Labs: 10/19/16 04:20 10/18/16 04:20 PT 19.2 Seconds (9.8-13.1) H 10/19/16 04:20 INR 1.7 (0.9-1.2) H 10/19/16 04:20 APTT 41.7 Seconds (25.6-37.1) H D 10/18/16 04:20 - Head Exam Head Exam: ATRAUMATIC, NORMAL INSPECTION, NORMOCEPHALIC - Eye Exam Eye Exam: EOMI - ENT Exam ENT Exam: Mucous Membranes Moist Additional comments: NG tube in place to suction. 250cc/12hour dark red/brown output - Respiratory Exam Respiratory Exam: NORMAL BREATHING PATTERN - GI/Abdominal Exam Additional comments: Moderately distended abdomen. Midline incision intact. Skin edges well approximated - Exam Additional comments: Taylor in place. 25cc/12 hr output - Extremities Exam Extremities Exam: Pedal Edema - Neurological Exam Neurological Exam: Awake Additional comments: Opens eyes to verbal command. Assessment and Plan - Assessment and Plan (Free Text) Assessment: 51yo M with aortic dissection, mesenteric ischemia - Keep NPO - IV fluids, TPN - Pain control - Abx as per ID - No further general surgery intervention at present time - Awaiting possible transfer to [facility]U - Will follow Further recs as per Dr. Abhishek Brunson PGY1
--- NOTE | 2016-10-19 07:54 | CP.PCM.PN ---
<BoyKyle - Last Filed: 10/19/16 07:52> Subjective - Date & Time of Evaluation Date of Evaluation: 10/19/16 Time of Evaluation: 07:52 - Subjective Subjective: Vascular Surgery Progress note. Dr. Armendariz Pt seen and examined at bedside. No acute events overnight. Pt moans and groans to verbal command and palpation of the abdomen. opens eyes to verbal command. Does not respond to questions appropriately Objective - Vital Signs/Intake and Output Vital Signs (last 24 hours): Temp Pulse Resp BP Pulse Ox 99.5 F 73 36 H 150/59 L 96 10/19/16 04:00 10/19/16 06:00 10/19/16 06:00 10/19/16 06:00 10/19/16 06:00 Intake and Output: 10/19/16 10/19/16 06:59 18:59 Intake Total 1100 Output Total 525 Balance 575 - Medications Medications: Current Medications Acetaminophen (Tylenol 325mg Tab) 650 mg PO Q6 PRN PRN Reason: Fever >100.4 F Acetaminophen (Tylenol 650mg/20.3ml Solution Ud) 650 mg PO Q6 PRN PRN Reason: fever Last Admin: 10/18/16 20:40 Dose: 650 mg Albuterol/Ipratropium (Duoneb 3 Mg/0.5 Mg (3 Ml) Ud) 3 ml INH RQ6 PRN PRN Reason: Shortness of Breath Metronidazole (Flagyl 500mg/100ml Ns) 100 mls @ 100 mls/hr IVPB Q8 RUTHY Last Admin: 10/19/16 00:10 Dose: 100 mls/hr Pantoprazole Sodium 40 mg/ (Sodium Chloride) 100 mls @ 20 mls/hr IVPB Q5H RUTHY PRN Reason: 8 MG/HR Last Admin: 10/19/16 02:48 Dose: 20 mls/hr Meropenem 500 mg/ Sodium (Chloride) 100 mls @ 100 mls/hr IVPB Q12 RUTHY Last Admin: 10/18/16 20:25 Dose: 100 mls/hr Vancomycin HCl 750 mg/ Sodium (Chloride) 250 mls @ 166.667 mls/hr IVPB QOTHERDAY [facility] Last Admin: 10/17/16 13:45 Dose: 166.667 mls/hr Micafungin Sodium 100 mg/ (Sodium Chloride) 100 mls @ 100 mls/hr IVPB DAILY RUTHY Last Admin: 10/18/16 08:08 Dose: 100 mls/hr Sodium Acetate 100 meq/Calcium Gluconate 4.5 meq/Multivitamins/Vitamin C 10 ml/ Chromium/Copper/Manganese/Zinc 3 ml/ Amino Acids 1,072.6774 mls @ 60 mls/hr IV .[id number] ONE Stop: 10/19/16 09:22 Sodium Acetate 100 meq/Calcium Gluconate 4.5 meq/Amino Acids 1,059.6774 mls @ 60 mls/hr IV .[id number] ONE Stop: 10/19/16 09:09 Labetalol HCl (Trandate) 40 mg IVP Q4 RUTHY Last Admin: 10/19/16 05:05 Dose: 40 mg Labetalol HCl (Trandate) 20 mg IVP Q2 PRN PRN Reason: high blood pressure Last Admin: 10/18/16 22:58 Dose: 20 mg Morphine Sulfate (Morphine) 4 mg IVP Q4 PRN PRN Reason: Pain, severe (8-10) Last Admin: 10/19/16 00:11 Dose: 4 mg Ondansetron HCl (Zofran Inj) 4 mg IVP Q6 PRN PRN Reason: Nausea/Vomiting - Labs Labs: 10/19/16 04:20 10/18/16 04:20 PT 19.2 Seconds (9.8-13.1) H 10/19/16 04:20 INR 1.7 (0.9-1.2) H 10/19/16 04:20 APTT 41.7 Seconds (25.6-37.1) H D 10/18/16 04:20 - Head Exam Head Exam: ATRAUMATIC, NORMAL INSPECTION, NORMOCEPHALIC - Eye Exam Eye Exam: EOMI - ENT Exam ENT Exam: Mucous Membranes Moist Additional comments: NG in place to suction and 250cc/12hr output - GI/Abdominal Exam Additional comments: Diffusely tender to palpation. Distended. - Extremities Exam Extremities Exam: Pedal Edema Additional comments: No poikilothermia - Neurological Exam Neurological Exam: Awake Assessment and Plan - Assessment and Plan (Free Text) Assessment: 51yo M with aortic dissection, mesenteric ischemia - No plans for any acute vascular surgery intervention - Awaiting possible transfer to [facility] - continue current management Further recs as per Dr. Marcello Brunson PGY1 <Lobo Armendariz - Last Filed: 10/19/16 13:40> Objective - Vital Signs/Intake and Output Vital Signs (last 24 hours): Temp Pulse Resp BP Pulse Ox 100.1 F H 82 23 151/70 H 97 10/19/16 12:00 10/19/16 13:00 10/19/16 13:00 10/19/16 13:10 10/19/16 13:00 Intake and Output: 10/19/16 10/19/16 06:59 18:59 Intake Total 1100 710 Output Total 525 Balance 575 710 - Medications Medications: Current Medications Acetaminophen (Tylenol 325mg Tab) 650 mg PO Q6 PRN PRN Reason: Fever >100.4 F Acetaminophen (Tylenol 650mg/20.3ml Solution Ud) 650 mg PO Q6 PRN PRN Reason: fever Last Admin: 10/18/16 20:40 Dose: 650 mg Albuterol/Ipratropium (Duoneb 3 Mg/0.5 Mg (3 Ml) Ud) 3 ml INH RQ6 PRN PRN Reason: Shortness of Breath Metronidazole (Flagyl 500mg/100ml Ns) 100 mls @ 100 mls/hr IVPB Q8 [facility] Last Admin: 10/19/16 08:14 Dose: 100 mls/hr Pantoprazole Sodium 40 mg/ (Sodium Chloride) 100 mls @ 20 mls/hr IVPB Q5H RUTHY PRN Reason: 8 MG/HR Last Admin: 10/19/16 13:13 Dose: 20 mls/hr Meropenem 500 mg/ Sodium (Chloride) 100 mls @ 100 mls/hr IVPB Q12 [facility]UTH[facility] Last Admin: 10/19/16 08:14 Dose: 100 mls/hr Vancomycin HCl 750 mg/ Sodium (Chloride) 250 mls @ 166.667 mls/hr IVPB QOTHERDAY [facility] Last Admin: 10/19/16 08:17 Dose: 166.667 mls/hr Micafungin Sodium 100 mg/ (Sodium Chloride) 100 mls @ 100 mls/hr IVPB DAILY [facility] Last Admin: 10/19/16 08:15 Dose: 100 mls/hr Nitroglycerin/Dextrose (Nitroglycerin 50 Mg/250 Ml D5w) 50 mg in 250 mls @ 0.9 mls/hr IV .Q24H ONE; 3 MCG/MIN PRN Reason: Protocol Stop: 10/20/16 12:30 Last Admin: 10/19/16 13:01 Dose: 3 mcg/min, 0.9 mls/hr Labetalol HCl (Trandate) 40 mg IVP Q4 [facility]UTHY Last Admin: 10/19/16 13:10 Dose: 40 mg Labetalol HCl (Trandate) 20 mg IVP Q2 PRN PRN Reason: high blood pressure Last Admin: 10/18/16 22:58 Dose: 20 mg Morphine Sulfate (Morphine) 4 mg IVP Q4 PRN PRN Reason: Pain, severe (8-10) Last Admin: 10/19/16 00:11 Dose: 4 mg Ondansetron HCl (Zofran Inj) 4 mg IVP Q6 PRN PRN Reason: Nausea/Vomiting - Labs Labs: 10/19/16 04:20 10/19/16 08:40 PT 19.2 Seconds (9.8-13.1) H 10/19/16 04:20 INR 1.7 (0.9-1.2) H 10/19/16 04:20 APTT 41.7 Seconds (25.6-37.1) H D 10/18/16 04:20 Assessment and Plan - Assessment and Plan (Free Text) Plan: No acute events overnight. Patient is much more alert and communicative. Still complains of diffuse abdominal pain, but abdomen is not acute. Both lower extremities is warm with no signs of acute ischemia. Continue current care and observation.
[2016-10-19] MEDS: Meropenem 500 MG in Sodium Chloride 0.9% 100 ML IVPB SCH ×2 (08:14→20:24)
[2016-10-19] MEDS: Micafungin 100 MG in Sodium Chloride 0.9% 100 ML IVPB SCH (08:15)
[2016-10-19 09:36] LABS: ALB/GLOB RATIO 0.7 (1.0-2.1); ALBUMIN 2.9 g/dL (3.5-5.0); CALCIUM 8.5 mg/dL (8.4-10.2)
--- NOTE | 2016-10-19 10:15 | CP.PCM.PN ---
Subjective - Date & Time of Evaluation Date of Evaluation: 10/19/16 Time of Evaluation: 09:45 - Subjective Subjective: Low grade fever this morning 100.2 more alert however does not follow simple commands like he did yesterday NGT in place PICC line - TPN running BP controlled with IV Labetalol Objective - Vital Signs/Intake and Output Vital Signs (last 24 hours): Temp Pulse Resp BP Pulse Ox 100.2 F H 79 27 H 162/64 H 97 10/19/16 08:00 10/19/16 10:00 10/19/16 10:00 10/19/16 10:00 10/19/16 10:00 Intake and Output: 10/19/16 10/19/16 06:59 18:59 Intake Total 1100 670 Output Total 525 Balance 575 670 - Medications Medications: Current Medications Acetaminophen (Tylenol 325mg Tab) 650 mg PO Q6 PRN PRN Reason: Fever >100.4 F Acetaminophen (Tylenol 650mg/20.3ml Solution Ud) 650 mg PO Q6 PRN PRN Reason: fever Last Admin: 10/18/16 20:40 Dose: 650 mg Albuterol/Ipratropium (Duoneb 3 Mg/0.5 Mg (3 Ml) Ud) 3 ml INH RQ6 PRN PRN Reason: Shortness of Breath Metronidazole (Flagyl 500mg/100ml Ns) 100 mls @ 100 mls/hr IVPB Q8 [facility] Last Admin: 10/19/16 08:14 Dose: 100 mls/hr Pantoprazole Sodium 40 mg/ (Sodium Chloride) 100 mls @ 20 mls/hr IVPB Q5H [facility] PRN Reason: 8 MG/HR Last Admin: 10/19/16 08:15 Dose: 20 mls/hr Meropenem 500 mg/ Sodium (Chloride) 100 mls @ 100 mls/hr IVPB Q12 [facility] Last Admin: 10/19/16 08:14 Dose: 100 mls/hr Vancomycin HCl 750 mg/ Sodium (Chloride) 250 mls @ 166.667 mls/hr IVPB QOTHERDAY [facility] Last Admin: 10/19/16 08:17 Dose: 166.667 mls/hr Micafungin Sodium 100 mg/ (Sodium Chloride) 100 mls @ 100 mls/hr IVPB DAILY [facility] Last Admin: 10/19/16 08:15 Dose: 100 mls/hr Labetalol HCl (Trandate) 40 mg IVP Q4 [facility] Last Admin: 10/19/16 08:27 Dose: 40 mg Labetalol HCl (Trandate) 20 mg IVP Q2 PRN PRN Reason: high blood pressure Last Admin: 10/18/16 22:58 Dose: 20 mg Morphine Sulfate (Morphine) 4 mg IVP Q4 PRN PRN Reason: Pain, severe (8-10) Last Admin: 10/19/16 00:11 Dose: 4 mg Ondansetron HCl (Zofran Inj) 4 mg IVP Q6 PRN PRN Reason: Nausea/Vomiting - Labs Labs: 10/19/16 04:20 10/19/16 08:40 PT 19.2 Seconds (9.8-13.1) H 10/19/16 04:20 INR 1.7 (0.9-1.2) H 10/19/16 04:20 APTT 41.7 Seconds (25.6-37.1) H D 10/18/16 04:20 - Constitutional Appears: Chronically Ill On Venti mask, alert - Head Exam Head Exam: NORMAL INSPECTION, NORMOCEPHALIC - Eye Exam Eye Exam: EOMI, Normal appearance Pupil Exam: NORMAL ACCOMODATION - ENT Exam ENT Exam: Mucous Membranes Dry, Normal External Ear Exam - Neck Exam Neck Exam: Full ROM. absent: Meningismus - Respiratory Exam Respiratory Exam: Rales, Rhonchi Additional comments: On Venti Mask - Cardiovascular Exam Cardiovascular Exam: REGULAR RHYTHM, +S1, +S2 - GI/Abdominal Exam GI & Abdominal Exam: Distended, Tenderness hypoactive BS - Extremities Exam Additional comments: moves all extremities decrease periph pulses DP - Neurological Exam Neurological Exam: Awake Additional comments: more alert today but did not follow my commands today no verbal output - Psychiatric Exam Psychiatric exam: Flat Affect - Skin Skin Exam: Dry, Pallor Assessment and Plan (1) Acute diffuse ischemia of intestine Status: Acute (2) Septic shock Status: Acute (3) Acute renal failure Status: Acute (4) Shock liver Status: Acute (5) A-fib Status: Acute (6) Thrombocytopenia Status: Acute (7) Aortic dissection, thoracoabdominal Status: Acute - Assessment and Plan (Free Text) Assessment: 51 y/o male with PMH Type A aortic aneurysm repair 2 weeks ago at [facility] by Dr. Wheat , back pain, HTN,cocaine abuse history ( as per friends) presented with severe sharp abdominal pain associated with nausea and emesis for two days. In ER, pt found to have intractable abdominal pain, disproportionate to exam. CT showed evidence of mesenteric ischemia/infarction. Seen by surgery in ER and taken to OR for emergent exploratory laparatomy by Dr. Sanchez that showed ischemic small bowel and right colon. No surgical intervention could be done, the patient was closed up and transferred to ICU for medical care. He was intubated for airway support was placed on on Fentanyl drip for sedation and pain control . He was weaned off and extubated and at present on Venturi mask afebrile, drowsy , off Fentanyl drip , moaning ,following simple commands. CTA abdomen showed ; 1. Apparent resolution of pneumatosis intestinalis, central mesenteric venous gas,superior mesenteric venous gas, as well as portal venous gas. Small and large bowel are limited evaluation due to lack of oral contrast administration this patient. Enteric colitis is not completely excluded. Pancolitis is a possibility as discussed above. No free intrarenal gas. Limited abdominal and pelvic ascites. 2. Nodular changes related to the right kidney are stable and remain potentially suspicious for solid nodule. 3. 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 At and below the level of the celiac artery origin, artifacts obscure evaluation of the abdominal aorta. Consider follow-up chest and abdomen CT with oral and intravenous contrast for greater characterization. Family in [place] notified of pt's condition 1.Septic shock secondary to ischemic bowel, with Multi-organ Failure extubated on Venti mask saturating 97% off Fentanyl drip. on Morphine IV for pain control off levophed drip Critically ill with very poor prognosis General surgery, Vascular Sx, GI, pulmonary, ID on consult Continue Meropenem, Micafungin , Flagyl and Vancomycin 2. Thoracoabdominal Aortic Dissection, Recent Type A aortic aneurysm repair at [facility] CTA abd and pelvis showed Thoracoabdominal aortic dissection involving distal thoracic segment and proximal aortic segment. Vascular surgery consulted- discussed case with Dr Armendariz- rec to transfer pt back to [facility] for higher level of care. Contacted Dr Wheat from [facility]- reviewed imaging and said that dissection is Type and mgt is medical CTA of Chest 1. There is a type A aortic dissection which appears to arise approximately at the level of the right brachiocephalic artery takeoff. This extends into the right brachiocephalic artery and questionably into the base of the left subclavian artery. Additionally, dissection extends into the descending thoracic aorta as well as the upper abdominal aorta. This appears to resolve approximately at the level of the celiac trunk. Major thoracic and abdominal aortic branches appear adequately perfused. 2. There is a concern for possible thrombus within the right common iliac artery and extending into the right external iliac artery. This appears resolved by the level of the common femoral artery. 3. There appears to have been prior repair at the level of the aortic root. 4. Small pericardial effusion measuring 11 mm on series 5, image 128. 5. There are multifocal patchy opacities throughout both lungs with a mid upper lung zone predominance. These do demonstrate air bronchograms are most compatible to multifocal pneumonia. 6. Small bilateral pleural effusions with associated bibasilar compressive atelectasis. 7. There is reflux of contrast into the IVC and hepatic vein suggesting a degree of right heart failure. 8. Kidneys are unremarkable aside from an isodense lesion at the right midpole measuring 1.4 CM. This is incompletely characterized however is concerning for possible solid lesion. If indicated followup can be obtained. 9. There is mild ascites in both paracolic gutters. There is diffuse anasarca. 10. Diffusely fluid-filled small bowel loops without definite obstruction. Previously seen bowel pneumatosis is no longer identified. 11. There is diffuse fatty infiltration involving the wall of the colon. This is nonspecific but can be seen in long-standing inflammatory bowel disease. 3. Ischemic/Necrotic bowel Most likely secondary to hypoperfusion due to aortic dissection s/p exploratory laparatomy by general surgery showing necrotic small bowel and right colon No surgical intervention possible at this time Supportive care CTA abd and pelvis read as pancolitis. Surgery informed and following Heparin was stopped due to thrombocytopenia and possibility of HIT. Argatroban hepatically dosed was started and stopped due to bleeding from NGT and ETT Poor prognosis PICC line placed for TPN 4.Elevated transaminases likely Shock Liver NGT in place with bloody secretions 5. GOPI likely due to decrease perfusion Pt started on Hemodialysis on 10/08 Nephrology consult - Dr Claudia Law HD cath placed to right groin cont HD 6. Pt did not have CABG-- clarified with surgeon Cardio consult : Dr Putnam Echo showed normal EF 7.Paroxysmal A Fib with RVR episode resolved, now back in SR received Amiodarone, off drip Cardio consulted 8. Thrombocytopenia-- improving Heparin discontinued HIT antibody:weakly + Bloody secretions noted from NGT and ETT. Held Argatroban 9. Acute blood loss anemia/ UGI bleed With bloody output from NGTs on protonix drip monitor for now GI on consult Transfuse 2 units PRBC 10. Coagulopathy monitor VIT K FFP transfusion given 6 units 11. Hypertension started labetalol IV q 2 11.DVT prophylaxis SCD
--- NOTE | 2016-10-19 11:06 | CP.PCM.PN ---
Subjective - Date & Time of Evaluation Date of Evaluation: 10/19/16 Time of Evaluation: 11:05 - Subjective Subjective: ID Note- Pt. seen and examined today in ICU. remains on the ventimask. continues to have moaning but no new events overnight. Objective - Vital Signs/Intake and Output Vital Signs (last 24 hours): Temp Pulse Resp BP Pulse Ox 100.2 F H 79 27 H 162/64 H 97 10/19/16 08:00 10/19/16 10:00 10/19/16 10:00 10/19/16 10:00 10/19/16 10:00 Intake and Output: 10/19/16 10/19/16 06:59 18:59 Intake Total 1100 670 Output Total 525 Balance 575 670 - Medications Medications: Current Medications Acetaminophen (Tylenol 325mg Tab) 650 mg PO Q6 PRN PRN Reason: Fever >100.4 F Acetaminophen (Tylenol 650mg/20.3ml Solution Ud) 650 mg PO Q6 PRN PRN Reason: fever Last Admin: 10/18/16 20:40 Dose: 650 mg Albuterol/Ipratropium (Duoneb 3 Mg/0.5 Mg (3 Ml) Ud) 3 ml INH RQ6 PRN PRN Reason: Shortness of Breath Metronidazole (Flagyl 500mg/100ml Ns) 100 mls @ 100 mls/hr IVPB Q8 [facility] Last Admin: 10/19/16 08:14 Dose: 100 mls/hr Pantoprazole Sodium 40 mg/ (Sodium Chloride) 100 mls @ 20 mls/hr IVPB Q5H [facility] PRN Reason: 8 MG/HR Last Admin: 10/19/16 08:15 Dose: 20 mls/hr Meropenem 500 mg/ Sodium (Chloride) 100 mls @ 100 mls/hr IVPB Q12 [facility] Last Admin: 10/19/16 08:14 Dose: 100 mls/hr Vancomycin HCl 750 mg/ Sodium (Chloride) 250 mls @ 166.667 mls/hr IVPB QOTHERDAY [facility] Last Admin: 10/19/16 08:17 Dose: 166.667 mls/hr Micafungin Sodium 100 mg/ (Sodium Chloride) 100 mls @ 100 mls/hr IVPB DAILY [facility] Last Admin: 10/19/16 08:15 Dose: 100 mls/hr Labetalol HCl (Trandate) 40 mg IVP Q4 [facility] Last Admin: 10/19/16 08:27 Dose: 40 mg Labetalol HCl (Trandate) 20 mg IVP Q2 PRN PRN Reason: high blood pressure Last Admin: 10/18/16 22:58 Dose: 20 mg Morphine Sulfate (Morphine) 4 mg IVP Q4 PRN PRN Reason: Pain, severe (8-10) Last Admin: 10/19/16 00:11 Dose: 4 mg Ondansetron HCl (Zofran Inj) 4 mg IVP Q6 PRN PRN Reason: Nausea/Vomiting - Labs Labs: - Additional Findings Additional findings: Constitutional Appears: Toxic - Head Exam Head Exam: ATRAUMATIC - ENT Exam Additional comments: NGT- dark output - Respiratory Exam Additional comments: decreased breath sounds at bases no wheezing - Cardiovascular Exam Cardiovascular Exam: RRR, +S1, +S2 - GI/Abdominal Exam Additional comments: slightly less distended , hypoactivve BS midabdominal surgical site clean/ no discharge, no erythema tenderness to palp - Extremities Exam Extremities Exam: 2+ pitting edema b/l LE and upper ext - Neurological Exam Additional comments: awakens when name is called and moans lines- right femoral HD catheter right arm single lumen picc - is on TPN as per ICU team Laboratory Results - last 72 hr 10/16/16 10/16/16 10/17/16 08:55 12:02 04:35 WBC 14.9 H D RBC 2.87 L Hgb 8.1 L Hct 25.4 L MCV 88.5 MCH 28.4 MCHC 32.0 L RDW 17.1 H Plt Count 196 MPV 11.0 Neut % (Auto) 77.2 H Lymph % (Auto) 12.2 L [place] % (Auto) 9.3 Eos % (Auto) 0.6 Baso % (Auto) 0.7 Neut # 11.5 H Lymph # 1.8 [place] # 1.4 H Eos # 0.1 Baso # 0.1 PT INR APTT Sodium Potassium Chloride Carbon Dioxide Anion Gap BUN Creatinine Est GFR ( Amer) Est GFR (Non-Af Amer) Random Glucose Calcium Phosphorus Magnesium Ferritin Total Bilirubin AST ALT Alkaline Phosphatase Total Protein Albumin Globulin Albumin/Globulin Ratio Triglycerides UF Heparin Interp Negative Vitamin B12 Folate Vancomycin Trough Heparin-induced Plt Ab Weak positive H VALERY UFH Low Dose 0.1 0 VALEYR UFH Low Dose 0.5 0 VALERY UFH High Dose 100 0 Blood Type Antibody Screen Crossmatch BBK History Checked 10/17/16 10/17/16 10/18/16 04:35 04:35 04:20 WBC 8.5 RBC 2.38 L Hgb 6.8 L Hct 21.6 L MCV 90.6 D MCH 28.7 MCHC 31.6 L RDW 17.5 H Plt Count 159 MPV 10.7 Neut % (Auto) 70.5 Lymph % (Auto) 15.6 L [place] % (Auto) 11.9 H Eos % (Auto) 1.4 Baso % (Auto) 0.6 Neut # 6.0 Lymph # 1.3 [place] # 1.0 H Eos # 0.1 Baso # 0.0 PT 33.0 H INR 2.9 H APTT 60.3 H Sodium 141 Potassium 5.0 Chloride 101 Carbon Dioxide 23 Anion Gap 23 H BUN 107 H* D Creatinine 7.3 H Est GFR ( Amer) 10 Est GFR (Non-Af Amer) 8 Random Glucose 157 H Calcium 7.8 L Phosphorus Magnesium Ferritin Total Bilirubin 9.7 H AST 114 H ALT 79 H Alkaline Phosphatase 111 Total Protein 6.8 Albumin 2.9 L Globulin 3.9 Albumin/Globulin Ratio 0.7 L Triglycerides UF Heparin Interp Vitamin B12 Folate Vancomycin Trough Heparin-induced Plt Ab VALERY UFH Low Dose 0.1 VALERY UFH Low Dose 0.5 VALERY UFH High Dose 100 Blood Type Antibody Screen Crossmatch BBK History Checked 10/18/16 10/18/16 10/18/16 04:20 04:20 08:35 WBC RBC Hgb Hct MCV MCH MCHC RDW Plt Count MPV Neut % (Auto) Lymph % (Auto) [place] % (Auto) Eos % (Auto) Baso % (Auto) Neut # Lymph # [place] # Eos # Baso # PT 19.8 H D INR 1.7 H D APTT 41.7 H D Sodium 140 Potassium 4.0 Chloride 99 Carbon Dioxide 26 Anion Gap 19 BUN 64 H Creatinine 5.2 H Est GFR ( Amer) 14 Est GFR (Non-Af Amer) 12 Random Glucose 196 H Calcium 7.8 L Phosphorus 7.3 H Magnesium 2.6 H Ferritin Total Bilirubin 9.7 H AST 111 H ALT 65 Alkaline Phosphatase 95 Total Protein 6.7 Albumin 3.0 L Globulin 3.7 Albumin/Globulin Ratio 0.8 L Triglycerides UF Heparin Interp Vitamin B12 Folate Vancomycin Trough Heparin-induced Plt Ab VALERY UFH Low Dose 0.1 VALERY UFH Low Dose 0.5 VALERY UFH High Dose 100 Blood Type Antibody Screen Crossmatch BBK History Checked 10/18/16 10/18/16 10/19/16 08:35 18:41 04:20 WBC 8.8 8.3 RBC 3.22 L 3.21 L Hgb 9.3 L D 9.6 L Hct 29.2 L 29.7 L MCV 90.8 92.5 MCH 29.0 29.8 MCHC 32.0 L 32.2 L RDW 18.2 H 18.5 H Plt Count 163 169 MPV 10.6 11.0 Neut % (Auto) 74.7 69.0 Lymph % (Auto) 11.9 L 12.5 L [place] % (Auto) 10.3 H 15.1 H Eos % (Auto) 2.4 2.9 Baso % (Auto) 0.7 0.5 Neut # 6.6 5.8 Lymph # 1.0 1.0 [place] # 0.9 H 1.3 H Eos # 0.2 0.2 Baso # 0.1 0.0 PT INR APTT Sodium Potassium Chloride Carbon Dioxide Anion Gap BUN Creatinine Est GFR ( Amer) Est GFR (Non-Af Amer) Random Glucose Calcium Phosphorus Magnesium Ferritin Total Bilirubin AST ALT Alkaline Phosphatase Total Protein Albumin Globulin Albumin/Globulin Ratio Triglycerides UF Heparin Interp Vitamin B12 Folate Vancomycin Trough Heparin-induced Plt Ab VALERY UFH Low Dose 0.1 VALERY UFH Low Dose 0.5 VALERY UFH High Dose 100 Blood Type O POSITIVE Antibody Screen Negative Crossmatch See Detail BBK History Checked Patient has bt 10/19/16 10/19/16 10/19/16 04:20 04:20 08:40 WBC RBC Hgb Hct MCV MCH MCHC RDW Plt Count MPV Neut % (Auto) Lymph % (Auto) [place] % (Auto) Eos % (Auto) Baso % (Auto) Neut # Lymph # [place] # Eos # Baso # PT 19.2 H INR 1.7 H APTT Sodium 144 Potassium 4.2 Chloride 105 Carbon Dioxide 26 Anion Gap 16 BUN 50 H Creatinine 4.7 H Est GFR ( Amer) 16 Est GFR (Non-Af Amer) 13 Random Glucose 165 H Calcium 8.5 Phosphorus Magnesium Ferritin 207.0 Total Bilirubin 9.9 H AST 166 H D ALT 58 Alkaline Phosphatase 109 Total Protein 7.0 Albumin 2.9 L Globulin 4.0 H Albumin/Globulin Ratio 0.7 L Triglycerides UF Heparin Interp Vitamin B12 892 Folate 9.2 Vancomycin Trough Heparin-induced Plt Ab VALERY UFH Low Dose 0.1 VALERY UFH Low Dose 0.5 VALERY UFH High Dose 100 Blood Type Antibody Screen Crossmatch BBK History Checked 10/19/16 10/19/16 08:44 10:12 WBC RBC Hgb Hct MCV MCH MCHC RDW Plt Count MPV Neut % (Auto) Lymph % (Auto) [place] % (Auto) Eos % (Auto) Baso % (Auto) Neut # Lymph # [place] # Eos # Baso # PT INR APTT Sodium Potassium Chloride Carbon Dioxide Anion Gap BUN Creatinine Est GFR ( Amer) Est GFR (Non-Af Amer) Random Glucose Calcium Phosphorus 6.1 H Magnesium 2.5 H Ferritin Total Bilirubin AST ALT Alkaline Phosphatase Total Protein Albumin Globulin Albumin/Globulin Ratio Triglycerides 228 H UF Heparin Interp Vitamin B12 Folate Vancomycin Trough 7.3 Heparin-induced Plt Ab VALERY UFH Low Dose 0.1 VALERY UFH Low Dose 0.5 VALERY UFH High Dose 100 Blood Type Antibody Screen Crossmatch BBK History Checked Microbiology 10/13/16 14:10 Blood-Venous Blood Culture - Final NO GROWTH AFTER 5 DAYS 10/13/16 14:10 Blood-Venous Gram Stain - Final TEST NOT PERFORMED 10/13/16 14:10 Blood-Venous Blood Culture - Final NO GROWTH AFTER 5 DAYS 10/13/16 14:10 Blood-Venous Gram Stain - Final TEST NOT PERFORMED 10/13/16 15:35 Urine,Taylor Urine Culture - Final No Growth (<1,000 CFU/ML) 10/13/16 15:35 Trachasp Gram Stain - Final 10/13/16 15:35 Trachasp Sputum Culture - Final Yeast Species 10/06/16 11:10 Nose MRSA Culture (Admit) - Final MRSA NOT DETECTED Accession No. : [id number] Patient Name / ID : ALYCE MONTILLA / [id number] Exam Date : 10/19/2016 13:56:17 ( Approved ) Study Comment : Sex / Age : M / 51Y Creator : Derek Brown MD Dictator : Derek Brown MD Audit Officer : Group Billing Coordinator : Derek Brown MD Approver2 : Report Date : 10/19/2016 15:23:43 My Comment : HISTORY: r/o bowl obstruction COMPARISON: 10/18/2016 FINDINGS: BOWEL: There is minimal bowel gas with no obvious obstruction. Fluid-filled loops of bowel can give this appearance. BONES: Normal. OTHER FINDINGS: None. IMPRESSION: No obvious obstruction. Assessment and Plan (1) Acute diffuse ischemia of intestine Status: Acute (2) Acute renal failure Status: Acute (3) Hx of CABG Status: Acute (4) Shock liver Status: Acute (5) Severe sepsis Status: Acute - Assessment and Plan (Free Text) Assessment: A/P- 51 year old male with HTN s/p disected aortic aneurysm repair 2 weeks ago at [facility] was admitted on 10/06/2016 with abd pain found to have mesenteric ischemia, non operable and had remained on the vent since post ex lap in ICU and has developed ARF on emergent HD , sepsis, shock liver, respiratory failure and septic. s/p extubation 5 days ago fever 100.2 today second time sin past 2 days leukocytosis has resolved . blood cx- neg x 2 urine cx- neg trach asp cx- yeast species 1.mesenteric ischemia 2. ARF on HD 3.shock liver 4.sepsis 5. s/p thoracoabdominal aortic aneurysm disection repair 2 weeks ago at [facility] plan- advise to continue with IV meropenem day #7. advise to continue with HD dose IV vancomycin as well. keep trough <15. continue with IV flagyl as well. advise to continue with antifungal as well, day #5. check blood cx x 2 in light of new low grade fever one from the hD catheter, also TPN can cause line infections commonly and hence if possible would advise other possible routes of nutrition. All above d/w Principal Clerk Typist and the ICU team. ICU time 45 min.
--- NOTE | 2016-10-19 12:00 | CP.PCM.PN ---
Subjective - Date & Time of Evaluation Date of Evaluation: 10/19/16 Time of Evaluation: 12:01 - Subjective Subjective: NO RESPIRATORY DISTRESS ON O2 SUPPLEMENT Objective - Vital Signs/Intake and Output Vital Signs (last 24 hours): Temp Pulse Resp BP Pulse Ox 100.2 F H 79 27 H 162/64 H 97 10/19/16 08:00 10/19/16 10:00 10/19/16 10:00 10/19/16 10:00 10/19/16 10:00 Intake and Output: 10/19/16 10/19/16 06:59 18:59 Intake Total 1100 670 Output Total 525 Balance 575 670 - Medications Medications: Current Medications Acetaminophen (Tylenol 325mg Tab) 650 mg PO Q6 PRN PRN Reason: Fever >100.4 F Acetaminophen (Tylenol 650mg/20.3ml Solution Ud) 650 mg PO Q6 PRN PRN Reason: fever Last Admin: 10/18/16 20:40 Dose: 650 mg Albuterol/Ipratropium (Duoneb 3 Mg/0.5 Mg (3 Ml) Ud) 3 ml INH RQ6 PRN PRN Reason: Shortness of Breath Metronidazole (Flagyl 500mg/100ml Ns) 100 mls @ 100 mls/hr IVPB Q8 [facility] Last Admin: 10/19/16 08:14 Dose: 100 mls/hr Pantoprazole Sodium 40 mg/ (Sodium Chloride) 100 mls @ 20 mls/hr IVPB Q5H [facility] PRN Reason: 8 MG/HR Last Admin: 10/19/16 08:15 Dose: 20 mls/hr Meropenem 500 mg/ Sodium (Chloride) 100 mls @ 100 mls/hr IVPB Q12 [facility] Last Admin: 10/19/16 08:14 Dose: 100 mls/hr Vancomycin HCl 750 mg/ Sodium (Chloride) 250 mls @ 166.667 mls/hr IVPB QOTHERDAY [facility] Last Admin: 10/19/16 08:17 Dose: 166.667 mls/hr Micafungin Sodium 100 mg/ (Sodium Chloride) 100 mls @ 100 mls/hr IVPB DAILY [facility] Last Admin: 10/19/16 08:15 Dose: 100 mls/hr Labetalol HCl (Trandate) 40 mg IVP Q4 [facility] Last Admin: 10/19/16 08:27 Dose: 40 mg Labetalol HCl (Trandate) 20 mg IVP Q2 PRN PRN Reason: high blood pressure Last Admin: 10/18/16 22:58 Dose: 20 mg Morphine Sulfate (Morphine) 4 mg IVP Q4 PRN PRN Reason: Pain, severe (8-10) Last Admin: 10/19/16 00:11 Dose: 4 mg Ondansetron HCl (Zofran Inj) 4 mg IVP Q6 PRN PRN Reason: Nausea/Vomiting - Labs Labs: 10/19/16 04:20 10/19/16 08:40 PT 19.2 Seconds (9.8-13.1) H 10/19/16 04:20 INR 1.7 (0.9-1.2) H 10/19/16 04:20 APTT 41.7 Seconds (25.6-37.1) H D 10/18/16 04:20 - Constitutional Appears: Chronically Ill - Head Exam Head Exam: ATRAUMATIC, NORMAL INSPECTION, NORMOCEPHALIC - Eye Exam Eye Exam: EOMI, Normal appearance, PERRL Pupil Exam: NORMAL ACCOMODATION, PERRL - ENT Exam ENT Exam: Mucous Membranes Moist, Normal Exam - Neck Exam Neck Exam: Full ROM, Normal Inspection. absent: Lymphadenopathy - Respiratory Exam Respiratory Exam: Clear to Ausculation Bilateral, NORMAL BREATHING PATTERN - Cardiovascular Exam Cardiovascular Exam: REGULAR RHYTHM, +S1, +S2. absent: Murmur - GI/Abdominal Exam GI & Abdominal Exam: Soft, Normal Bowel Sounds. absent: Tenderness Additional comments: SURGICAL DRESSING IN PLACE - Rectal Exam Rectal Exam: NORMAL INSPECTION - Extremities Exam Extremities Exam: Full ROM, Normal Capillary Refill, Normal Inspection. absent : Joint Swelling, Pedal Edema - Back Exam Back Exam: NORMAL INSPECTION - Skin Skin Exam: Dry, Intact, Normal Color, Warm Assessment and Plan - Assessment and Plan (Free Text) Assessment: ISCHEMIC BOWEL S/P ANEURYSM REPAIR GOPI Plan: NO FURTHER PULMONARY INTERVENTION FOR NOW NO APPARENT PULMONARY PATHOLOGY WILL SIGN OFF CASE AND SEE AGAIN AT YOUR REQUEST
[2016-10-19 12:20] LABS: MAGNESIUM 2.5 MG/DL (1.6-2.3)
[2016-10-19] MEDS ORDERED: Nitroglycerin 50mg in D5W 50 MG/250 ML BOTTLE IV ONE (12:31)
--- NOTE | 2016-10-19 12:35 | PN ---
Dr Reeves , general surgeon Dictating doctor: Dada Talbot hospitalist from [facility] Patient is a 51 year old man with history of CABG 2 weeks ago and a history of hypertension that comes in for back pain, severe abdominal pain. At this point cannot get history of patient due to the fact that they are currently intubated. Basically, has what appears to be acute abdomen and was taken in for an emergency exploratory laparotomy, was opened and closed and was to taken to the ICU postoperatively. General surgeon called for cannot give past medical history. Past medical history: hypertension Surgical history: Coronary artery bypass graft ( CABG) Physical Exam: vitals in the hospital are as noted. General: this is a middle age men lyin in bed, intubated and in mild distress. Head: NT/AT, Eyes: PERRL ___, Neck is supple,no ___, no lymphadenopathy, lungs: ____ Heart: S1 and S2 abdomen is tendeder and distended, decreased bowel sounds, and some rebound and guarding. response to pain Laboratory: all have been review. WBCs - 12 .8 HGB - 9.7 HCT: 31.[address] - 151 RBC___1.6 lactic acid 6.3 AST 10.61____ ALT 7.26 Total biliriubin____: 2.9 CAT scan w/o contrast: Portal venous air____ Assesment and plan: 51 year old man which appears to be ____ small bowel ischemia. Etiollogy morrow this is more likey mesenteric____ischemia, likely patient threw a clot. Definitely will like to get an angiography to determine this, but at this point I am not sure there is any value given his worsening liver functionl. His LFTs are clearly elevated likely from the ischemic shock. From GI stand point antibiotic now, and po bed support moderate setting ____support moderate setting. Appreciated surgical and renal input will call paitnet with ____. Amanda Reeves Dada Talbot MD
[2016-10-19 12:51] LABS: FOLATE 9.2 ng/mL
--- NOTE | 2016-10-19 14:22 | PN ---
This is Dr. Jerel oHng dictating progress note on patient: Wilmer Fofana . DOS 10/09/2016 Patient in ICU Bed 423. Time spent: 35 minutes. Patient is seen and evaluated at the bedside.Events since admission reviewed. 51 year old male status post coronary artery bypass graft surgery, two weeks prior to admission. Admitted with diffuse abdominal pain. Noted to have ischemic bowel.l. Remains intubated on mechanical ventilation. AC/PRVC receipt rate 18 set at tidal volume of 550. PEEP amount 5. Oxygen supplement 100% ._ Rate 18, exhaled tidal volume 500 and 13 minute ventilation 9.6 electives. Saturating 100 percentage. ROS minimal response to painful stimuli. PmHx, Sx, SocHx, and Fhx reviewed and dated. Vitals: Temperature 97.7 HR 61, regular. BP 109/44 O2 100%. Intake 4,084. Output 1475. Positive balance 3509. Examination HEENT: Pupils 3-4 mm reactive. Conjunctivae: anicteric. Endotracheal tube in place, trachea central. Chest: bilateral breath sounds divination intensity. Clear to auscultation anteriorly and laterally. Heart: Rhythm regular, S1 S2 normal intensity. Abdomen: Distended, abdominal dressing intact and dry, no bowel sounds heard. Tympanic to percussion Extremity: Lower extremity edema, pulses cyanotic. Nuero: on ventilator. On fentanyl drip. No_response to verbal comments, responds to painful stimuli. Medications: Tylenol 650 q6 prn. Cefepime 2g IV daily. Flagyl 500 IV qr8.. Heparin 5,000 units Subq q8 hours. Morphine 2 mg IV q6 prn. Zofran formula IV q6 prn. Sodium bicarbonate 150 mEq in D5W at 200 ml per hour. LabData WBC: 18.1. Hemoglobin: 9.2. Hematocrit: 28.8. Platelet Count: 87. Neutrophils: 54. Bands: 19 Lymphocytes: 14 . PT: 18.5 and 1.6. PTT: 33.3. ABC Ph: 7.29. Protein: C 61. CO2: 93 sat 98.5%. On AC/PRV: 14, 550, 100%. SMA: 7 . Sodium: 139. Potassium: 4. (364.6) 96. Carbon dioxide: 28. Anion Gap: 19 .. Creatine: 5.51. Lactic acid: 6. Calcium 6.9. Uric acid 8.4. Total Bilirubin: 4.5. AST: 950. ALT: 551. Alkaline phosphatase: 172. Albumin: 2.5 Radiography X-ray: Chest X-ray , segmentalatlactasis. Impression: Nuero: Septic metabolic encephalopathy. On fentanyl drip for comfort and care. Cardiac: Status post coronary artery bypass graft surgery two weeks ago. Acute ischemic /necrotic bowel status post exploratory laparotomy. No surgical repair done to the extent of necrotic bowel. On sodium bicarbonate at 250 ml per hour. GI: Ischemic liver with elevated liver enzymes. Infectious disease, necrotic bowel associated with sepsis. On Cefepime and Flagyl. No further intervention. Plan as per GI and /or surgery. Renal: Acute renal failure associated with acute tubular necrosis. Seen by nephrology consult. Ongoing hemodialysis. Hematology: Leukocytosis with thrombocytopenia secondary to sepsis. Prognosis remains guarded. Best practice: Keep ahead of (584.3-587.3), GI prophylaxis with PPI. Maintain blood sugar below 180 mg. Jerel Hong MD
--- NOTE | 2016-10-19 15:29 | RAD ---
HISTORY: r/o bowl obstruction COMPARISON: 10/18/2016 FINDINGS: BOWEL: There is minimal bowel gas with no obvious obstruction. Fluid-filled loops of bowel can give this appearance. BONES: Normal. OTHER FINDINGS: None. IMPRESSION: No obvious obstruction.
[2016-10-19] MEDS ORDERED: CALCIUM GLUCONATE IV ONE (23:30)
[2016-10-19] MEDS ORDERED: SODIUM ACETATE IV ONE (23:30)
[2016-10-19] MEDS ORDERED: [UNRECOGNIZED DRUG - OTHER] IV ONE (23:30)
[2016-10-19] MEDS ORDERED: MAGNESIUM SULFATE IV ONE (23:30)
[2016-10-20] MEDS: Pantoprazole 40 MG in Sodium Chloride 0.9% 100 ML IVPB SCH ×5 (00:06→16:19)
[2016-10-20] MEDS: metroNIDAZOLE 500mg/100ml NS 100 ML IVPB SCH ×3 (00:20→16:20)
[2016-10-20] MEDS: Labetalol 5 mg/ml Inj 20ML IVP SCH ×6 (00:49→21:00)
[2016-10-20] MEDS: Morphine 4 MG/ML VIAL IVP PRN ×3 (07:45→16:25)
--- NOTE | 2016-10-20 07:58 | CP.PCM.PN ---
Subjective - Date & Time of Evaluation Date of Evaluation: 10/20/16 Time of Evaluation: 08:00 - Subjective Subjective: Patient seen and examined bedside. Critically ill male , lying in bed ,appears uncomfortable and in pain , moaning all the time. Does not respond any questions , does not follow any commands. On Venti mask FIo2 50 % saturating well O2Sat 98 % , afebrile last 12 hours on Tridil drip , BP 149/66 HR 74 No acute issues overnight Taylor in palce with 20 ml output PICC line to right forearm with TPN running NGT in palce with bilious output , 250 ml last 12 hours Waiting for bed in [facility] ICU Objective - Vital Signs/Intake and Output Vital Signs (last 24 hours): Temp Pulse Resp BP Pulse Ox 99.5 F 74 23 149/66 100 10/20/16 04:00 10/20/16 06:00 10/20/16 06:00 10/20/16 06:00 10/20/16 06:00 Intake and Output: 10/20/16 10/20/16 06:59 18:59 Intake Total 1592 Output Total 225 Balance 1367 - Medications Medications: Current Medications Acetaminophen (Tylenol 325mg Tab) 650 mg PO Q6 PRN PRN Reason: Fever >100.4 F Acetaminophen (Tylenol 650mg/20.3ml Solution Ud) 650 mg PO Q6 PRN PRN Reason: fever Last Admin: 10/18/16 20:40 Dose: 650 mg Albuterol/Ipratropium (Duoneb 3 Mg/0.5 Mg (3 Ml) Ud) 3 ml INH RQ6 PRN PRN Reason: Shortness of Breath Metronidazole (Flagyl 500mg/100ml Ns) 100 mls @ 100 mls/hr IVPB Q8 RUTHY Last Admin: 10/20/16 00:20 Dose: 100 mls/hr Pantoprazole Sodium 40 mg/ (Sodium Chloride) 100 mls @ 20 mls/hr IVPB Q5H RUTHY PRN Reason: 8 MG/HR Last Admin: 10/20/16 05:00 Dose: 20 mls/hr Meropenem 500 mg/ Sodium (Chloride) 100 mls @ 100 mls/hr IVPB Q12 RUTHY Last Admin: 10/19/16 20:24 Dose: 100 mls/hr Micafungin Sodium 100 mg/ (Sodium Chloride) 100 mls @ 100 mls/hr IVPB DAILY RUTHY Last Admin: 10/19/16 08:15 Dose: 100 mls/hr Nitroglycerin/Dextrose (Nitroglycerin 50 Mg/250 Ml D5w) 50 mg in 250 mls @ 0.9 mls/hr IV .Q24H ONE; 3 MCG/MIN PRN Reason: Protocol Stop: 10/20/16 12:30 Last Admin: 10/19/16 13:01 Dose: 3 mcg/min, 0.9 mls/hr Sodium Acetate 100 meq/Magnesium Sulfate 5 meq/Calcium Gluconate 4.5 meq/ Multivitamins/Vitamin C 10 ml/Chromium/Copper/Manganese/Zinc 3 ml/ Amino Acids 1,073.9089 mls @ 90 mls/hr IV .[id number] ONE Stop: 10/20/16 11:25 Last Admin: 10/20/16 02:20 Dose: 90 mls/hr Vancomycin HCl 750 mg/ Sodium (Chloride) 250 mls @ 166.667 mls/hr IVPB TTS RUTHY Labetalol HCl (Trandate) 40 mg IVP Q4 [facility] Last Admin: 10/20/16 05:09 Dose: 40 mg Labetalol HCl (Trandate) 20 mg IVP Q2 PRN PRN Reason: high blood pressure Last Admin: 10/18/16 22:58 Dose: 20 mg Morphine Sulfate (Morphine) 4 mg IVP Q4 PRN PRN Reason: Pain, severe (8-10) Last Admin: 10/20/16 07:45 Dose: 4 mg Ondansetron HCl (Zofran Inj) 4 mg IVP Q6 PRN PRN Reason: Nausea/Vomiting - Labs Labs: 10/19/16 04:20 10/19/16 08:40 PT 19.2 Seconds (9.8-13.1) H 10/19/16 04:20 INR 1.7 (0.9-1.2) H 10/19/16 04:20 APTT 41.7 Seconds (25.6-37.1) H D 10/18/16 04:20 - Constitutional Appears: Toxic, In Acute Distress - Head Exam Head Exam: ATRAUMATIC, NORMOCEPHALIC - Eye Exam Eye Exam: EOMI, PERRL, Scleral icterus - ENT Exam ENT Exam: Mucous Membranes Dry - Neck Exam Neck Exam: Normal Inspection - Respiratory Exam Respiratory Exam: absent: Prolonged Expiratory Phase Additional comments: coarse breath sounds bilaterally with no wheezing - Cardiovascular Exam Cardiovascular Exam: REGULAR RHYTHM, RRR, +S1, +S2. absent: JVD - GI/Abdominal Exam GI & Abdominal Exam: Distended, Tenderness, Hypoactive Bowel Sounds - Rectal Exam Rectal Exam: Deferred - Extremities Exam Extremities Exam: Normal Capillary Refill, Normal Inspection. absent: Calf Tenderness, Pedal Edema - Neurological Exam Neurological Exam: Alert, Awake Additional comments: does not follow any commands does not respond to any questions - Skin Skin Exam: Dry Additional comments: jaundiced left arm and upper right thigh small skin tears anasarca Assessment and Plan - Assessment and Plan (Free Text) Assessment: 51 y/o male with PMH Type A aortic aneurysm repair at [facility] by Dr. Wheat ( ), back pain, HTN,cocaine abuse history ( as per friends) presented with severe sharp abdominal pain associated with nausea and emesis for two days. In ER, pt found to have intractable abdominal pain, disproportionate to exam. CT showed evidence of mesenteric ischemia/infarction. Seen by surgery in ER and taken to OR for emergent exploratory laparatomy by Dr. Sanchez that showed ischemic small bowel and right colon. No surgical intervention could be done, the patient was closed up and transferred to ICU for medical care. He was intubated for airway support was placed on on Fentanyl drip for sedation and pain control . He was weaned off and extubated and at present on Venturi mask afebrile,moaning in pain , not following any commands but awake and alert to name calling , off Fentanyl drip , on TPN and Tridil drip for BP control. patient has been receiving HF for GOPI 1.Septic shock secondary to ischemic bowel, with Multi-organ Failure extubated on Venti mask FIO2 50 % saturating 98% off Fentanyl drip. on Morphine IV for pain control CT abdomen showed 1. resolution of pneumatosis intestinalis, central mesenteric venous gas,superior mesenteric venous gas, as well as portal venous gas. Small and large bowel are limited evaluation due to lack of oral contrast administration this patient. Enteric colitis is not completely excluded. Pancolitis is a possibility ,no free intrarenal gas. Limited abdominal and pelvic ascites. 2. 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 At and below the level of the celiac artery origin, artifacts obscure evaluation of the abdominal aorta Patient with GOPI on HD still anuric , with shock liver ( elevated LFT-s and mark ) and ischemic bowel Critically ill with very poor prognosis General surgery, Vascular Sx, GI, pulmonary, ID on consult Continue Meropenem, Micafungin , Flagyl and Vancomycin 2. Thoracoabdominal Aortic Dissection, Recent Type A aortic aneurysm repair at [facility] 09/17/16 CTA abd and pelvis showed Thoracoabdominal aortic dissection involving distal thoracic segment and proximal aortic segment. Vascular surgery consulted- discussed case with Dr Armendariz- rec to transfer pt back to [facility] for higher level of care. Contacted Dr Wheat from [facility]- reviewed imaging and said that patient does not need surgical correction only medical management patient waiting for transfer to [facility] ICU on Tridil drip for BP control 3. Ischemic/Necrotic bowel Most likely secondary to hypoperfusion due to aortic dissection s/p exploratory laparatomy by general surgery showing necrotic small bowel and right colon No surgical intervention possible at this time Supportive care CTA abd and pelvis read as pancolitis ,Diffusely fluid-filled small bowel loops without definite obstruction. Previously seen bowel pneumatosis is no longer identified. Surgery informed and following Heparin was stopped due to thrombocytopenia and possibility of HIT. Argatroban hepatically dosed was started and stopped due to bleeding from NGT and ETT Poor prognosis PICC line placed and TPN infusion on going Minimal trial of NGT feeding with only 22 ml started yesterday and stopped since abdomen became more distended and patient appeared in discomfort. No output from rectum since admission Continue pain control Dr. Noguera at [facility] was contacted about possible transfer for bowel transplant and recommended repair of aneurysm and no indication at present for transplant waiting transfer bed to [facility] 4.Elevated transaminases and bilirubin likely Shock Liver NGT in place with bilious secretions LFT-s trended down but bilirubin trending up today 9.9 most likely secondary to cholestasis 5. GOPI likely due to decrease perfusion Pt started on Hemodialysis on 10/08 Nephrology consult - Dr Claudia Law HD cath placed to right groin cont HD 6. Pt did not have CABG-- clarified with surgeon Cardio consult : Dr Putnam Echo showed normal EF 7.Paroxysmal A Fib with RVR episode resolved, now back in SR received Amiodarone, off drip Cardio consulted 8. Thrombocytopenia-- improved Heparin induced thrombocytopenia ruled out Bilious secretions noted from NGT 9. Acute blood loss anemia/ UGI bleed had bloody output from NGTs and now with bilious output on protonix drip monitor for now GI on consult Transfused 2 units PRBC 10. Coagulopathy INR trending down to 1.7 Given VIT K and 6 unit FFP 11. Hypertension uncontrolled on Tridil drip 11.DVT prophylaxis SCD
[2016-10-20] MEDS: Meropenem 500 MG in Sodium Chloride 0.9% 100 ML IVPB SCH ×2 (08:02→21:07)
[2016-10-20] MEDS: Micafungin 100 MG in Sodium Chloride 0.9% 100 ML IVPB SCH (08:03)
--- NOTE | 2016-10-20 08:43 | CP.PCM.PN ---
<Evelin Crane - Last Filed: 10/20/16 08:40> Subjective - Date & Time of Evaluation Date of Evaluation: 10/20/16 Time of Evaluation: 08:41 - Subjective Subjective: Surgery for Dr. alvarado Pt s&e. No changes since yesterday. Response to pain stimuli. NGT ford in place. Objective - Vital Signs/Intake and Output Vital Signs (last 24 hours): Temp Pulse Resp BP Pulse Ox 98.4 F 82 24 162/71 H 100 10/20/16 08:24 10/20/16 08:24 10/20/16 08:24 10/20/16 08:24 10/20/16 08:24 Intake and Output: 10/20/16 10/20/16 06:59 18:59 Intake Total 1592 Output Total 225 Balance 1367 - Medications Medications: Current Medications Acetaminophen (Tylenol 325mg Tab) 650 mg PO Q6 PRN PRN Reason: Fever >100.4 F Acetaminophen (Tylenol 650mg/20.3ml Solution Ud) 650 mg PO Q6 PRN PRN Reason: fever Last Admin: 10/18/16 20:40 Dose: 650 mg Albuterol/Ipratropium (Duoneb 3 Mg/0.5 Mg (3 Ml) Ud) 3 ml INH RQ6 PRN PRN Reason: Shortness of Breath Metronidazole (Flagyl 500mg/100ml Ns) 100 mls @ 100 mls/hr IVPB Q8 RUTHY Last Admin: 10/20/16 08:02 Dose: 100 mls/hr Pantoprazole Sodium 40 mg/ (Sodium Chloride) 100 mls @ 20 mls/hr IVPB Q5H RUTHY PRN Reason: 8 MG/HR Last Admin: 10/20/16 05:00 Dose: 20 mls/hr Meropenem 500 mg/ Sodium (Chloride) 100 mls @ 100 mls/hr IVPB Q12 RUTHY Last Admin: 10/20/16 08:02 Dose: 100 mls/hr Micafungin Sodium 100 mg/ (Sodium Chloride) 100 mls @ 100 mls/hr IVPB DAILY [facility] Last Admin: 10/20/16 08:03 Dose: 100 mls/hr Nitroglycerin/Dextrose (Nitroglycerin 50 Mg/250 Ml D5w) 50 mg in 250 mls @ 0.9 mls/hr IV .Q24H ONE; 3 MCG/MIN PRN Reason: Protocol Stop: 10/20/16 12:30 Last Admin: 10/19/16 13:01 Dose: 3 mcg/min, 0.9 mls/hr Sodium Acetate 100 meq/Magnesium Sulfate 5 meq/Calcium Gluconate 4.5 meq/ Multivitamins/Vitamin C 10 ml/Chromium/Copper/Manganese/Zinc 3 ml/ Amino Acids 1,073.9089 mls @ 90 mls/hr IV .[id number] ONE Stop: 10/20/16 11:25 Last Admin: 10/20/16 02:20 Dose: 90 mls/hr Vancomycin HCl 750 mg/ Sodium (Chloride) 250 mls @ 166.667 mls/hr IVPB TTS RUTHY Labetalol HCl (Trandate) 40 mg IVP Q4 RUTHY Last Admin: 10/20/16 05:09 Dose: 40 mg Labetalol HCl (Trandate) 20 mg IVP Q2 PRN PRN Reason: high blood pressure Last Admin: 10/18/16 22:58 Dose: 20 mg Morphine Sulfate (Morphine) 4 mg IVP Q4 PRN PRN Reason: Pain, severe (8-10) Last Admin: 10/20/16 07:45 Dose: 4 mg Ondansetron HCl (Zofran Inj) 4 mg IVP Q6 PRN PRN Reason: Nausea/Vomiting - Labs Labs: 10/19/16 04:20 10/19/16 08:40 PT 19.2 Seconds (9.8-13.1) H 10/19/16 04:20 INR 1.7 (0.9-1.2) H 10/19/16 04:20 APTT 41.7 Seconds (25.6-37.1) H D 10/18/16 04:20 - Constitutional Appears: No Acute Distress - Head Exam Head Exam: ATRAUMATIC, NORMAL INSPECTION, NORMOCEPHALIC - Eye Exam Pupil Exam: PERRL - ENT Exam ENT Exam: Mucous Membranes Moist, Normal Exam Additional comments: NGT - Neck Exam Neck Exam: Full ROM, Normal Inspection. absent: Lymphadenopathy - Respiratory Exam Respiratory Exam: Clear to Ausculation Bilateral, NORMAL BREATHING PATTERN - Cardiovascular Exam Cardiovascular Exam: REGULAR RHYTHM - GI/Abdominal Exam GI & Abdominal Exam: Distended, Firm, Tenderness, Normal Bowel Sounds Additional comments: Incision C/D/I. TTP - Exam Additional comments: Ford - Extremities Exam Extremities Exam: Normal Capillary Refill, Pedal Edema. absent: Tenderness - Neurological Exam Neurological Exam: Awake. absent: Alert, Normal Gait, Oriented x3 - Skin Skin Exam: Dry, Warm Assessment and Plan - Assessment and Plan (Free Text) Assessment: 51yo M with aortic dissection, mesenteric ischemia - Keep NPO - IV fluids, TPN - Pain control - Abx as per ID - No further general surgery intervention at present time - Awaiting possible transfer to [facility]U - Will follow Further recs as per Dr. Alvarado <Calixto Alvarado - Last Filed: 10/20/16 15:05> Subjective - Date & Time of Evaluation Time of Evaluation: 13:40 - Subjective Subjective: Patient was seen and examined at the bedside. Agree with resident's note above. Objective - Vital Signs/Intake and Output Vital Signs (last 24 hours): Temp Pulse Resp BP Pulse Ox 98.7 F 84 27 H 136/62 96 10/20/16 12:44 10/20/16 14:00 10/20/16 14:00 10/20/16 14:00 10/20/16 14:00 Intake and Output: 10/20/16 10/20/16 06:59 18:59 Intake Total 1592 1478 Output Total 225 2500 Balance 1367 -1022 - Medications Medications: Current Medications Acetaminophen (Tylenol 325mg Tab) 650 mg PO Q6 PRN PRN Reason: Fever >100.4 F Acetaminophen (Tylenol 650mg/20.3ml Solution Ud) 650 mg PO Q6 PRN PRN Reason: fever Last Admin: 10/18/16 20:40 Dose: 650 mg Albuterol/Ipratropium (Duoneb 3 Mg/0.5 Mg (3 Ml) Ud) 3 ml INH RQ6 PRN PRN Reason: Shortness of Breath Metronidazole (Flagyl 500mg/100ml Ns) 100 mls @ 100 mls/hr IVPB Q8 RUTHY Last Admin: 10/20/16 08:02 Dose: 100 mls/hr Pantoprazole Sodium 40 mg/ (Sodium Chloride) 100 mls @ 20 mls/hr IVPB Q5H RUTHY PRN Reason: 8 MG/HR Last Admin: 10/20/16 10:44 Dose: 20 mls/hr Meropenem 500 mg/ Sodium (Chloride) 100 mls @ 100 mls/hr IVPB Q12 RUTHY Last Admin: 10/20/16 08:02 Dose: 100 mls/hr Micafungin Sodium 100 mg/ (Sodium Chloride) 100 mls @ 100 mls/hr IVPB DAILY R[facility]Y Last Admin: 10/20/16 08:03 Dose: 100 mls/hr Vancomycin HCl 750 mg/ Sodium (Chloride) 250 mls @ 166.667 mls/hr IVPB TTS [facility] Last Admin: 10/20/16 10:45 Dose: 166.667 mls/hr Labetalol HCl (Trandate) 40 mg IVP Q4 RUTHY Last Admin: 10/20/16 10:46 Dose: 40 mg Labetalol HCl (Trandate) 20 mg IVP Q2 PRN PRN Reason: high blood pressure Last Admin: 10/18/16 22:58 Dose: 20 mg Morphine Sulfate (Morphine) 4 mg IVP Q4 PRN PRN Reason: Pain, severe (8-10) Last Admin: 10/20/16 11:49 Dose: 4 mg Ondansetron HCl (Zofran Inj) 4 mg IVP Q6 PRN PRN Reason: Nausea/Vomiting - Labs Labs: 10/20/16 08:54 10/20/16 08:54 PT 19.2 Seconds (9.8-13.1) H 10/19/16 04:20 INR 1.7 (0.9-1.2) H 10/19/16 04:20 APTT 41.7 Seconds (25.6-37.1) H D 10/18/16 04:20 Assessment and Plan - Assessment and Plan (Free Text) Plan: - Awaiting transfer to [facility] to the care of cardiothoracic surgeon - Continue care as per medical and ICU teams - No further general surgery intervention at present time
[2016-10-20 09:11] LABS: ALB/GLOB RATIO 0.7 (1.0-2.1); ALBUMIN 2.7 g/dL (3.5-5.0); BILIRUBIN,DIRECT 7.3 mg/ml (0.0-0.4); CALCIUM 8.4 mg/dL (8.4-10.2); MAGNESIUM 2.5 MG/DL (1.6-2.3)
[2016-10-20 09:12] LABS: BASO % 0.4 % (0.0-2.0); EOS # 0.2 K/uL (0.0-0.7); EOS % 2.6 % (0.0-4.0); HEMOGLOBIN 9.1 g/dL (12.0-18.0); LYMPH % 15.6 % (20.0-40.0); MEAN CELL VOLUME 92.1 fl (80.0-94.0); MEAN CORPUSCULAR HEMOGLOBIN 29.2 pg (27.0-31.0); MEAN CORPUSCULAR HGB CONC 31.7 g/dL (33.0-37.0); MEAN PLATELET VOLUME 11.4 fl (7.2-11.7); MONO # 1.4 K/uL (0.0-0.8); MONO % 21.2 % (0.0-10.0); NEUT % 60.2 % (50.0-75.0); NRBC % 3.5 % (0.0-0.0); PLATELET COUNT 174 K/uL (130-400); RBC 3.12 Mil/uL (4.40-5.90); RED CELL DISTRIBUTION WIDTH 21.2 % (11.5-14.5); WHITE BLOOD COUNT 6.7 K/uL (4.8-10.8)
--- NOTE | 2016-10-20 10:07 | CP.PCM.PN ---
<Evelin Crane - Last Filed: 10/20/16 10:05> Subjective - Date & Time of Evaluation Date of Evaluation: 10/20/16 Time of Evaluation: 10:05 - Subjective Subjective: Vascular surgery for Dr. Armendariz Pt s&e. Arousable. Response to pain stimuli. No response to verbal commands. Objective - Vital Signs/Intake and Output Vital Signs (last 24 hours): Temp Pulse Resp BP Pulse Ox 98.4 F 82 24 162/71 H 100 10/20/16 08:24 10/20/16 08:24 10/20/16 08:24 10/20/16 08:24 10/20/16 08:24 Intake and Output: 10/20/16 10/20/16 06:59 18:59 Intake Total 1592 232 Output Total 225 Balance 1367 232 - Medications Medications: Current Medications Acetaminophen (Tylenol 325mg Tab) 650 mg PO Q6 PRN PRN Reason: Fever >100.4 F Acetaminophen (Tylenol 650mg/20.3ml Solution Ud) 650 mg PO Q6 PRN PRN Reason: fever Last Admin: 10/18/16 20:40 Dose: 650 mg Albuterol/Ipratropium (Duoneb 3 Mg/0.5 Mg (3 Ml) Ud) 3 ml INH RQ6 PRN PRN Reason: Shortness of Breath Metronidazole (Flagyl 500mg/100ml Ns) 100 mls @ 100 mls/hr IVPB Q8 [facility] Last Admin: 10/20/16 08:02 Dose: 100 mls/hr Pantoprazole Sodium 40 mg/ (Sodium Chloride) 100 mls @ 20 mls/hr IVPB Q5H [facility] PRN Reason: 8 MG/HR Last Admin: 10/20/16 05:00 Dose: 20 mls/hr Meropenem 500 mg/ Sodium (Chloride) 100 mls @ 100 mls/hr IVPB Q12 [facility] Last Admin: 10/20/16 08:02 Dose: 100 mls/hr Micafungin Sodium 100 mg/ (Sodium Chloride) 100 mls @ 100 mls/hr IVPB DAILY [facility] Last Admin: 10/20/16 08:03 Dose: 100 mls/hr Nitroglycerin/Dextrose (Nitroglycerin 50 Mg/250 Ml D5w) 50 mg in 250 mls @ 0.9 mls/hr IV .Q24H ONE; 3 MCG/MIN PRN Reason: Protocol Stop: 10/20/16 12:30 Last Admin: 10/19/16 13:01 Dose: 3 mcg/min, 0.9 mls/hr Sodium Acetate 100 meq/Magnesium Sulfate 5 meq/Calcium Gluconate 4.5 meq/ Multivitamins/Vitamin C 10 ml/Chromium/Copper/Manganese/Zinc 3 ml/ Amino Acids 1,073.9089 mls @ 90 mls/hr IV .[id number] ONE Stop: 10/20/16 11:25 Last Admin: 10/20/16 02:20 Dose: 90 mls/hr Vancomycin HCl 750 mg/ Sodium (Chloride) 250 mls @ 166.667 mls/hr IVPB TTS [facility] Labetalol HCl (Trandate) 40 mg IVP Q4 [facility] Last Admin: 10/20/16 05:09 Dose: 40 mg Labetalol HCl (Trandate) 20 mg IVP Q2 PRN PRN Reason: high blood pressure Last Admin: 10/18/16 22:58 Dose: 20 mg Morphine Sulfate (Morphine) 4 mg IVP Q4 PRN PRN Reason: Pain, severe (8-10) Last Admin: 10/20/16 07:45 Dose: 4 mg Ondansetron HCl (Zofran Inj) 4 mg IVP Q6 PRN PRN Reason: Nausea/Vomiting - Labs Labs: 10/20/16 08:54 10/20/16 08:54 PT 19.2 Seconds (9.8-13.1) H 10/19/16 04:20 INR 1.7 (0.9-1.2) H 10/19/16 04:20 APTT 41.7 Seconds (25.6-37.1) H D 10/18/16 04:20 - Constitutional Appears: Toxic, In Acute Distress - Head Exam Head Exam: ATRAUMATIC, NORMAL INSPECTION, NORMOCEPHALIC - Eye Exam Eye Exam: Scleral icterus Pupil Exam: PERRL - ENT Exam ENT Exam: Mucous Membranes Moist, Normal Exam Additional comments: NGT - Neck Exam Neck Exam: Full ROM, Normal Inspection. absent: Lymphadenopathy - Respiratory Exam Respiratory Exam: absent: Respiratory Distress - Cardiovascular Exam Cardiovascular Exam: REGULAR RHYTHM - GI/Abdominal Exam GI & Abdominal Exam: Distended, Tenderness. absent: Guarding - Exam Additional comments: Taylor - Extremities Exam Extremities Exam: Normal Capillary Refill, Normal Inspection, Pedal Edema. absent: Joint Swelling - Back Exam Back Exam: NORMAL INSPECTION - Neurological Exam Neurological Exam: Awake - Skin Skin Exam: Dry, Intact, Warm Assessment and Plan - Assessment and Plan (Free Text) Assessment: 51yo M with aortic dissection, mesenteric ischemia - No plans for any acute vascular surgery intervention - Awaiting possible transfer to [facility] - continue current management Further recs as per Dr. Armendariz <Lobo Armendariz - Last Filed: 10/20/16 13:47> Objective - Vital Signs/Intake and Output Vital Signs (last 24 hours): Temp Pulse Resp BP Pulse Ox 98.7 F 74 21 144/66 97 10/20/16 12:44 10/20/16 12:44 10/20/16 12:44 10/20/16 12:44 10/20/16 12:44 Intake and Output: 10/20/16 10/20/16 06:59 18:59 Intake Total 1592 1046 Output Total 225 Balance 1367 1046 - Medications Medications: Current Medications Acetaminophen (Tylenol 325mg Tab) 650 mg PO Q6 PRN PRN Reason: Fever >100.4 F Acetaminophen (Tylenol 650mg/20.3ml Solution Ud) 650 mg PO Q6 PRN PRN Reason: fever Last Admin: 10/18/16 20:40 Dose: 650 mg Albuterol/Ipratropium (Duoneb 3 Mg/0.5 Mg (3 Ml) Ud) 3 ml INH RQ6 PRN PRN Reason: Shortness of Breath Metronidazole (Flagyl 500mg/100ml Ns) 100 mls @ 100 mls/hr IVPB Q8 [facility] Last Admin: 10/20/16 08:02 Dose: 100 mls/hr Pantoprazole Sodium 40 mg/ (Sodium Chloride) 100 mls @ 20 mls/hr IVPB Q5H [facility] PRN Reason: 8 MG/HR Last Admin: 10/20/16 10:44 Dose: 20 mls/hr Meropenem 500 mg/ Sodium (Chloride) 100 mls @ 100 mls/hr IVPB Q12 [facility] Last Admin: 10/20/16 08:02 Dose: 100 mls/hr Micafungin Sodium 100 mg/ (Sodium Chloride) 100 mls @ 100 mls/hr IVPB DAILY [facility] Last Admin: 10/20/16 08:03 Dose: 100 mls/hr Vancomycin HCl 750 mg/ Sodium (Chloride) 250 mls @ 166.667 mls/hr IVPB TTS [facility] Last Admin: 10/20/16 10:45 Dose: 166.667 mls/hr Labetalol HCl (Trandate) 40 mg IVP Q4 [facility] Last Admin: 10/20/16 10:46 Dose: 40 mg Labetalol HCl (Trandate) 20 mg IVP Q2 PRN PRN Reason: high blood pressure Last Admin: 10/18/16 22:58 Dose: 20 mg Morphine Sulfate (Morphine) 4 mg IVP Q4 PRN PRN Reason: Pain, severe (8-10) Last Admin: 10/20/16 11:49 Dose: 4 mg Ondansetron HCl (Zofran Inj) 4 mg IVP Q6 PRN PRN Reason: Nausea/Vomiting - Labs Labs: 10/20/16 08:54 10/20/16 08:54 PT 19.2 Seconds (9.8-13.1) H 10/19/16 04:20 INR 1.7 (0.9-1.2) H 10/19/16 04:20 APTT 41.7 Seconds (25.6-37.1) H D 10/18/16 04:20 Assessment and Plan - Assessment and Plan (Free Text) Plan: Patient seen and examined. Patient remains critically ill, but there are no acute issues or exacerbation of his condition this morning. Right lower extremity is warm with no signs of limb-threatening ischemia. Continue current treatment. Continue tight blood pressure control to keep systolic at or below 140mmHg. No immediate vascular surgical issues at present.
--- NOTE | 2016-10-20 11:42 | CP.CCUPN ---
CCU Subjective - Physician Review Events Since Last Encounter (Free Text): 10/20/16 11:39 lethargic , sleepy, non-verbal, HD in progress, BP has been stable and Ox sat is good, still oliguric, on TPN, reordered, labs reviewed. CCU Objective - Vital Signs / Intake & Output Vital Signs (Last 4 hours): Vital Signs Temp Pulse Resp BP Pulse Ox 10/20/16 10:46 160/84 H 10/20/16 10:00 82 29 H 160/84 H 97 10/20/16 08:24 98.4 F 82 24 162/71 H 100 Intake and Output (Last 8hrs): Intake & Output 10/19/16 10/20/16 10/20/16 22:59 06:59 14:59 Intake Total 1131 1028 564 Output Total 220 225 Balance 911 803 564 Intake: IV 931 928 464 Intake, Piggyback 200 100 100 Oral 0 Output: Gastric Amount 200 200 Stomach 200 200 Urine 20 25 Urethral (Taylor) 20 25 - Physical Exam Narrative Physical Exam (Free Text): 10/20/16 11:40 P/E Neck: NO JVD Lungs: No ronchi or crackles Abdomen: slightly distended, mild generelized tenderness, no gaurding ext: +1 edema heart: no gallop Head: Positive for: Atraumatic, Normocephalic Pupils: Positive for: PERRL Conjunctiva: Positive for: Normal. Negative for: Icteric Ears: Positive for: Normal Mouth: Positive for: Moist Mucous Membranes, Other (Dry Blood noticed in oral region. Blood noted via NG tube suction) Nose (External): Positive for: Atraumatic Nose (Internal): Positive for: Normal Inspection Neck: Positive for: Trachea Midline. Negative for: JVD Respiratory/Chest: Positive for: Decreased Breath Sounds, Rhonchi Cardiovascular: Positive for: Regular Rate and Rhythm, Tachycardic. Negative for: Murmurs, Rub Abdomen: Positive for: Tenderness (Generalized tenderness to palpate. Dressing clean dry and intact), Distention, Guarding Genitourinary Male: Positive for: Testicle Swelling Upper Extremity: Positive for: Normal Inspection, Edema Lower Extremity: Positive for: Cyanosis, Swelling, Other (Warm lower extremity b /l). Negative for: CALF TENDERNESS Neurological: Positive for: Other (Patient is able to follow comand and move all extremities.) Skin: Positive for: Warm, Other (+ anasarca). Negative for: Rashes Psychiatric: Positive for: Alert, Other (sedated). Negative for: Oriented x 3 - Medications Active Medications: Active Medications Generic Name Dose Route Start Last Admin Trade Name Freq PRN Reason Stop Dose Admin Acetaminophen 650 mg 10/06/16 15:27 Tylenol 325mg Tab PO Q6 PRN Fever >100.4 F Acetaminophen 650 mg 10/18/16 04:24 10/18/16 20:40 Tylenol 650mg/20.3ml Solution Ud PO 650 mg Q6 PRN Administration fever Albuterol/Ipratropium 3 ml 10/16/16 05:44 Duoneb 3 Mg/0.5 Mg (3 Ml) Ud INH RQ6 PRN Shortness of Breath Metronidazole 100 mls @ 100 mls/hr 10/08/16 11:15 10/20/16 08:02 Flagyl 500mg/100ml Ns IVPB 100 mls/hr Q8 [facility] Administration Pantoprazole Sodium 40 mg/ 100 mls @ 20 mls/hr 10/12/16 10:15 10/20/16 10:44 Sodium Chloride IVPB 20 mls/hr Q5H [facility] Administration 8 MG/HR Meropenem 500 mg/ Sodium 100 mls @ 100 mls/hr 10/13/16 21:00 10/20/16 08:02 Chloride IVPB 100 mls/hr Q12 [facility] Administration Micafungin Sodium 100 mg/ 100 mls @ 100 mls/hr 10/15/16 14:00 10/20/16 08:03 Sodium Chloride IVPB 100 mls/hr DAILY [facility] Administration Nitroglycerin/Dextrose 50 mg in 250 mls @ 0.9 mls/hr 10/19/16 12:31 10/19/16 13:01 Nitroglycerin 50 Mg/250 Ml D5w IV 10/20/16 12:30 3 mcg/min .Q24H ONE 0.9 mls/hr Protocol Administration 3 MCG/MIN Vancomycin HCl 750 mg/ Sodium 250 mls @ 166.667 mls/hr 10/20/16 09:00 10:45 Chloride IVPB 166.667 mls/hr TTS [facility] Administration Labetalol HCl 40 mg 10/17/16 10:21 10/20/16 10:46 Trandate IVP 40 mg Q4 [facility]Y Administration Labetalol HCl 20 mg 10/17/16 10:45 10/18/16 22:58 Trandate IVP 20 mg Q2 PRN Administration high blood pressure Morphine Sulfate 4 mg 10/14/16 16:50 10/20/16 07:45 Morphine IVP 4 mg Q4 PRN Administration Pain, severe (8-10) Ondansetron HCl 4 mg 10/06/16 15:27 Zofran Inj IVP Q6 PRN Nausea/Vomiting - Patient Studies Lab Studies: Microbiology Studies 10/18/16 21:35 Blood Culture - Preliminary Blood-Venous NO GROWTH AFTER 24 HOURS 10/18/16 21:11 Blood Culture - Preliminary Blood-Venous NO GROWTH AFTER 24 HOURS Lab Studies 10/20/16 10/20/16 10/20/16 Range/Units 08:54 08:54 08:54 WBC 6.7 (4.8-10.8) K/uL RBC 3.12 L (4.40-5.90) Mil/uL Hgb 9.1 L (12.0-18.0) g/dL Hct 28.7 L (35.0-51.0) % MCV 92.1 (80.0-94.0) fl MCH 29.2 (27.0-31.0) pg MCHC 31.7 L (33.0-37.0) g/dL RDW 21.2 H (11.5-14.5) % Plt Count 174 (130-400) K/uL MPV 11.4 (7.2-11.7) fl Neut % (Auto) 60.2 (50.0-75.0) % Lymph % (Auto) 15.6 L (20.0-40.0) % [place] % (Auto) 21.2 H (0.0-10.0) % Eos % (Auto) 2.6 (0.0-4.0) % Baso % (Auto) 0.4 (0.0-2.0) % Neut # 4.0 (1.8-7.0) K/uL Lymph # 1.0 (1.0-4.3) K/uL [place] # 1.4 H (0.0-0.8) K/uL Eos # 0.2 (0.0-0.7) K/uL Baso # 0.0 (0.0-0.2) K/uL Sodium 141 (132-148) mmol/l Potassium 3.8 (3.6-5.0) MMOL/L Chloride 101 (98-107) mmol/L Carbon Dioxide 26 (22-30) mmol/L Anion Gap 18 (10-20) BUN 84 H (9-20) mg/dl Creatinine 6.6 H (0.8-1.5) mg/dL Est GFR ( Amer) 11 Est GFR (Non-Af Amer) 9 Random Glucose 289 H (75-110) mg/dL Calcium 8.4 (8.4-10.2) mg/dL Phosphorus 5.9 H (2.5-4.5) mg/dl Magnesium 2.5 H (1.6-2.3) MG/DL Total Bilirubin 8.3 H (0.2-1.3) mg/dl Direct Bilirubin 7.3 H (0.0-0.4) mg/ml AST 66 H D (17-59) U/L ALT 47 (21-72) U/L Alkaline Phosphatase 92 (38-126) U/L Lactate Dehydrogenase 850 H (313-618) U/L Total Protein 6.6 (6.3-8.2) G/DL Albumin 2.7 L (3.5-5.0) g/dL Globulin 4.0 H (2.2-3.9) gm/dL Albumin/Globulin Ratio 0.7 L (1.0-2.1) Triglycerides (0-149) mg/DL Folate ng/mL RENAE, Poly Interpret Negative (NEGATIVE) 10/19/16 10/19/16 Range/Units 10:12 04:20 WBC (4.8-10.8) K/uL RBC (4.40-5.90) Mil/uL Hgb (12.0-18.0) g/dL Hct (35.0-51.0) % MCV (80.0-94.0) fl MCH (27.0-31.0) pg MCHC (33.0-37.0) g/dL RDW (11.5-14.5) % Plt Count (130-400) K/uL MPV (7.2-11.7) fl Neut % (Auto) (50.0-75.0) % Lymph % (Auto) (20.0-40.0) % [place] % (Auto) (0.0-10.0) % Eos % (Auto) (0.0-4.0) % Baso % (Auto) (0.0-2.0) % Neut # (1.8-7.0) K/uL Lymph # (1.0-4.3) K/uL [place] # (0.0-0.8) K/uL Eos # (0.0-0.7) K/uL Baso # (0.0-0.2) K/uL Sodium (132-148) mmol/l Potassium (3.6-5.0) MMOL/L Chloride (98-107) mmol/L Carbon Dioxide (22-30) mmol/L Anion Gap (10-20) BUN (9-20) mg/dl Creatinine (0.8-1.5) mg/dL Est GFR ( Amer) Est GFR (Non-Af Amer) Random Glucose (75-110) mg/dL Calcium (8.4-10.2) mg/dL Phosphorus 6.1 H (2.5-4.5) mg/dl Magnesium 2.5 H (1.6-2.3) MG/DL Total Bilirubin (0.2-1.3) mg/dl Direct Bilirubin (0.0-0.4) mg/ml AST (17-59) U/L ALT (21-72) U/L Alkaline Phosphatase (38-126) U/L Lactate Dehydrogenase (313-618) U/L Total Protein (6.3-8.2) G/DL Albumin (3.5-5.0) g/dL Globulin (2.2-3.9) gm/dL Albumin/Globulin Ratio (1.0-2.1) Triglycerides 228 H (0-149) mg/DL Folate 9.2 ng/mL RENAE, Poly Interpret (NEGATIVE) Laboratory Results - last 24 hr 10/19/16 10/19/16 10/20/16 04:20 10:12 08:54 WBC 6.7 RBC 3.12 L Hgb 9.1 L Hct 28.7 L MCV 92.1 MCH 29.2 MCHC 31.7 L RDW 21.2 H Plt Count 174 MPV 11.4 Neut % (Auto) 60.2 Lymph % (Auto) 15.6 L [place] % (Auto) 21.2 H Eos % (Auto) 2.6 Baso % (Auto) 0.4 Neut # 4.0 Lymph # 1.0 [place] # 1.4 H Eos # 0.2 Baso # 0.0 Sodium Potassium Chloride Carbon Dioxide Anion Gap BUN Creatinine Est GFR ( Amer) Est GFR (Non-Af Amer) Random Glucose Calcium Phosphorus 6.1 H Magnesium 2.5 H Total Bilirubin Direct Bilirubin AST ALT Alkaline Phosphatase Lactate Dehydrogenase Total Protein Albumin Globulin Albumin/Globulin Ratio Triglycerides 228 H Folate 9.2 RENAE, Poly Interpret 10/20/16 10/20/16 08:54 08:54 WBC RBC Hgb Hct MCV MCH MCHC RDW Plt Count MPV Neut % (Auto) Lymph % (Auto) [place] % (Auto) Eos % (Auto) Baso % (Auto) Neut # Lymph # [place] # Eos # Baso # Sodium 141 Potassium 3.8 Chloride 101 Carbon Dioxide 26 Anion Gap 18 BUN 84 H Creatinine 6.6 H Est GFR ( Amer) 11 Est GFR (Non-Af Amer) 9 Random Glucose 289 H Calcium 8.4 Phosphorus 5.9 H Magnesium 2.5 H Total Bilirubin 8.3 H Direct Bilirubin 7.3 H AST 66 H D ALT 47 Alkaline Phosphatase 92 Lactate Dehydrogenase 850 H Total Protein 6.6 Albumin 2.7 L Globulin 4.0 H Albumin/Globulin Ratio 0.7 L Triglycerides Folate RENAE, Poly Interpret Negative Assessment/Plan - Assessment and Plan (Free Text) Assessment: 1.Septic shock secondary to ischemic bowel, with Multi-organ Failure extubated on Venti mask FIO2 50 % saturating 98% CT abdomen report reviwed: resolution of pneumatosis intestinalis, central mesenteric venous gas,superior mesenteric venous gas, as well as portal venous gas. small abdominal and pelvic ascites. Patient with GOPI on HD still anuric , with shock liver ( elevated LFT-s and mark ) and ischemic bowel Critically ill with very poor prognosis General surgery, Vascular Sx, GI, pulmonary, ID on consult Continue Meropenem, Micafungin , Flagyl and Vancomycin 2. Thoracoabdominal Aortic Dissection, Recent Type A aortic aneurysm repair at [facility] 09/17/16 CTA abd and pelvis showed Thoracoabdominal aortic dissection involving distal thoracic segment and proximal aortic segment. Vascular surgery consulted- Dr Armendariz- rec to transfer pt back to [facility] for higher level of care. Dr Wheat from [facility]- reviewed imaging and said that patient does not need surgical correction only medical management patient waiting for transfer to [facility] ICU on Tridil drip for BP control 3. Ischemic/Necrotic bowel s/p exploratory laparatomy by general surgery showing necrotic small bowel and right colon No surgical intervention possible at this time Supportive care Surgery following Heparin was stopped due to thrombocytopenia and possibility of HIT. Argatroban hepatically dosed was started and stopped due to bleeding from NGT and ETT Poor prognosis On TPN, re-ordered , with minor adjustment in electrolytes Minimal trial of NGT feeding with only 22 ml started yesterday and stopped since abdomen became more distended and patient appeared in discomfort. No output from rectum since admission Continue pain control Dr. Noguera at [facility] was contacted about possible transfer for bowel transplant and recommended repair of aneurysm and no indication at present for transplant waiting transfer bed to [facility] 4- GOPI likely due to decrease perfusion Pt started on Hemodialysis on 10/08 HD in progress, ordered as per renal , 4 hours, UF 2 L 5. Thrombocytopenia-- improved Heparin induced thrombocytopenia ruled out Bilious secretions noted from NGT 6. Acute blood loss anemia/ UGI bleed had bloody output from NGTs and now with bilious output on protonix drip monitor for now GI on consult Transfused 2 units PRBC 7. Coagulopathy INR trending down to 1.7 Given VIT K and 6 unit FFP 8. Hypertension uncontrolled on Tridil drip 9.DVT prophylaxis SCD
[2016-10-20 11:58] LABS: ANISOCYTOSIS MODERATE; BANDS 6 % (0-2); LYMPHOCYTE 13 % (20-50); MONOCYTE 28 % (0-10); NEUTROPHIL 53 % (42-75); NUCLEATED RED BLOOD CELL 10 % (0-0); PLATELET ESTIMATE NORMAL (NORMAL); TOTAL CELLS COUNTED 100
[2016-10-20 11:59] LABS: GIANT PLATELETS PRESENT; HYPOCHROMIC MODERATE; LARGE PLATELETS PRESENT; POLYCHROMIC SLIGHT; TARGET CELLS SLIGHT
--- NOTE | 2016-10-20 12:56 | CP.PCM.PN ---
Subjective - Date & Time of Evaluation Date of Evaluation: 10/20/16 Time of Evaluation: 12:40 - Subjective Subjective: Intubated on ventilator support Currently on dialysis Objective - Vital Signs/Intake and Output Vital Signs (last 24 hours): Temp Pulse Resp BP Pulse Ox 98.7 F 74 21 144/66 97 10/20/16 12:44 10/20/16 12:44 10/20/16 12:44 10/20/16 12:44 10/20/16 12:44 Intake and Output: 10/20/16 10/20/16 06:59 18:59 Intake Total 1592 564 Output Total 225 Balance 1367 564 - Medications Medications: Current Medications Acetaminophen (Tylenol 325mg Tab) 650 mg PO Q6 PRN PRN Reason: Fever >100.4 F Acetaminophen (Tylenol 650mg/20.3ml Solution Ud) 650 mg PO Q6 PRN PRN Reason: fever Last Admin: 10/18/16 20:40 Dose: 650 mg Albuterol/Ipratropium (Duoneb 3 Mg/0.5 Mg (3 Ml) Ud) 3 ml INH RQ6 PRN PRN Reason: Shortness of Breath Metronidazole (Flagyl 500mg/100ml Ns) 100 mls @ 100 mls/hr IVPB Q8 [facility] Last Admin: 10/20/16 08:02 Dose: 100 mls/hr Pantoprazole Sodium 40 mg/ (Sodium Chloride) 100 mls @ 20 mls/hr IVPB Q5H [facility] PRN Reason: 8 MG/HR Last Admin: 10/20/16 10:44 Dose: 20 mls/hr Meropenem 500 mg/ Sodium (Chloride) 100 mls @ 100 mls/hr IVPB Q12 [facility] Last Admin: 10/20/16 08:02 Dose: 100 mls/hr Micafungin Sodium 100 mg/ (Sodium Chloride) 100 mls @ 100 mls/hr IVPB DAILY [facility] Last Admin: 10/20/16 08:03 Dose: 100 mls/hr Vancomycin HCl 750 mg/ Sodium (Chloride) 250 mls @ 166.667 mls/hr IVPB TTS [facility] Last Admin: 10/20/16 10:45 Dose: 166.667 mls/hr Labetalol HCl (Trandate) 40 mg IVP Q4 [facility] Last Admin: 10/20/16 10:46 Dose: 40 mg Labetalol HCl (Trandate) 20 mg IVP Q2 PRN PRN Reason: high blood pressure Last Admin: 10/18/16 22:58 Dose: 20 mg Morphine Sulfate (Morphine) 4 mg IVP Q4 PRN PRN Reason: Pain, severe (8-10) Last Admin: 10/20/16 11:49 Dose: 4 mg Ondansetron HCl (Zofran Inj) 4 mg IVP Q6 PRN PRN Reason: Nausea/Vomiting - Labs Labs: 10/20/16 08:54 10/20/16 08:54 PT 19.2 Seconds (9.8-13.1) H 10/19/16 04:20 INR 1.7 (0.9-1.2) H 10/19/16 04:20 APTT 41.7 Seconds (25.6-37.1) H D 10/18/16 04:20 - Respiratory Exam Additional comments: Lungs clear anteriorly. No wheezes - Cardiovascular Exam Cardiovascular Exam: REGULAR RHYTHM - GI/Abdominal Exam GI & Abdominal Exam: Distended - Extremities Exam Additional comments: Aii extrem edematous Assessment and Plan - Assessment and Plan (Free Text) Assessment: Acute renal failure requiring dialysis support Tolerating dialysis well Sepsis secondary to ischemic bowel S/P CABG, A> fib Thoraco abdominal aortic aneurysm HTN Plan: Continue HD support. Extra dialysis as needed UF as tolerated
[2016-10-20] MEDS ORDERED: SODIUM ACETATE IV ONE (15:45)
[2016-10-20] MEDS ORDERED: MAGNESIUM SULFATE IV ONE (15:45)
[2016-10-20] MEDS ORDERED: [UNRECOGNIZED DRUG - OTHER] IV ONE (15:45)
[2016-10-20] MEDS ORDERED: SODIUM CHLORIDE IV ONE (15:45)
[2016-10-20] MEDS: SODIUM CHLORIDE IV ONE (16:44)
[2016-10-20] MEDS: SODIUM ACETATE IV ONE (16:44)
[2016-10-20] MEDS: MAGNESIUM SULFATE IV ONE (16:44)
[2016-10-20] MEDS: [UNRECOGNIZED DRUG - OTHER] IV ONE (16:44)
[2016-10-21] MEDS: metroNIDAZOLE 500mg/100ml NS 100 ML IVPB SCH ×2 (01:00→08:18)
[2016-10-21] MEDS ORDERED: Nitroglycerin 50mg in D5W 50 MG/250 ML BOTTLE IV ONE ×2 (03:18→07:47)
[2016-10-21] MEDS: Pantoprazole 40 MG in Sodium Chloride 0.9% 100 ML IVPB SCH ×2 (04:25→04:27)
[2016-10-21] MEDS: [UNRECOGNIZED DRUG - OTHER] IV ONE (05:02)
[2016-10-21] MEDS: MAGNESIUM SULFATE IV ONE (05:02)
[2016-10-21] MEDS: SODIUM ACETATE IV ONE (05:02)
[2016-10-21] MEDS: SODIUM CHLORIDE IV ONE (05:02)
[2016-10-21] MEDS: Labetalol 5 mg/ml Inj 20ML IVP SCH (05:04)
[2016-10-21 07:56] LABS: HEMOGLOBIN 8.6 g/dL (12.0-18.0); MEAN CELL VOLUME 91.2 fl (80.0-94.0); MEAN CORPUSCULAR HEMOGLOBIN 29.1 pg (27.0-31.0); MEAN CORPUSCULAR HGB CONC 31.9 g/dL (33.0-37.0); RBC 2.95 Mil/uL (4.40-5.90); RED CELL DISTRIBUTION WIDTH 20.9 % (11.5-14.5); WHITE BLOOD COUNT 8.4 K/uL (4.8-10.8)
[2016-10-21] MEDS: Labetalol 5 mg/ml Inj 20ML IVP PRN (08:00)
[2016-10-21 08:04] LABS: CALCIUM 8.4 mg/dL (8.4-10.2)
[2016-10-21] MEDS: Micafungin 100 MG in Sodium Chloride 0.9% 100 ML IVPB SCH (08:18)
[2016-10-21 08:58] VITALS: TEMP 99.8
--- NOTE | 2016-10-21 09:01 | CP.CCUPN ---
CCU Subjective - Physician Review Events Since Last Encounter (Free Text): 10/21/16 08:57 Awake, responsive, BP has been stable, no tachycardia , Ox sat is good, but had ford's trauma, when he catheter got pulled by the patient when moving around and now has hematuria, tried to irrigate the catheter, unsuccessful, lots of clots, changed the catheter. Pt is not on anticoagulants at the moment, no significant drop in Hb, but might drop a little by tomorrow due to hematuria. On TPN, Had HD yesterday, still oliguric. To be transferred to [facility] later this morning, to be picked up at 9-30. CCU Objective - Vital Signs / Intake & Output Vital Signs (Last 4 hours): Vital Signs Pulse Resp BP Pulse Ox 10/21/16 06:00 85 20 147/76 95 10/21/16 05:04 84 172/75 H Intake and Output (Last 8hrs): Intake & Output 10/20/16 10/21/16 10/21/16 22:59 06:59 14:59 Intake Total 1587 1240 Output Total 210 Balance 1377 1240 Intake: IV 677 1140 Intake, Piggyback 550 100 Oral 0 TPN/PPN 360 Output: Gastric Amount 200 Stomach 200 Urine 10 Urethral (Ford) 10 - Physical Exam Physical Exam Limitations: Positive for: Other Head: Positive for: Atraumatic, Normocephalic Pupils: Positive for: PERRL Conjunctiva: Positive for: Normal. Negative for: Icteric Ears: Positive for: Normal Mouth: Positive for: Moist Mucous Membranes, Other (Dry Blood noticed in oral region. Blood noted via NG tube suction) Nose (External): Positive for: Atraumatic Nose (Internal): Positive for: Normal Inspection Neck: Positive for: Trachea Midline. Negative for: JVD Respiratory/Chest: Positive for: Decreased Breath Sounds, Rhonchi Cardiovascular: Positive for: Regular Rate and Rhythm, Tachycardic. Negative for: Murmurs, Rub Abdomen: Positive for: Tenderness (Generalized tenderness to palpate. Dressing clean dry and intact), Distention, Guarding Genitourinary Male: Positive for: Testicle Swelling Upper Extremity: Positive for: Normal Inspection, Edema Lower Extremity: Positive for: Cyanosis, Swelling, Other (Warm lower extremity b /l). Negative for: CALF TENDERNESS Neurological: Positive for: Other (Patient is able to follow comand and move all extremities.) Skin: Positive for: Warm, Other (+ anasarca). Negative for: Rashes Psychiatric: Positive for: Alert, Other (sedated). Negative for: Oriented x 3 - Medications Active Medications: Active Medications Generic Name Dose Route Start Last Admin Trade Name Freq PRN Reason Stop Dose Admin Acetaminophen 650 mg 10/06/16 15:27 Tylenol 325mg Tab PO Q6 PRN Fever >100.4 F Acetaminophen 650 mg 10/18/16 04:24 10/18/16 20:40 Tylenol 650mg/20.3ml Solution Ud PO 650 mg Q6 PRN Administration fever Albuterol/Ipratropium 3 ml 10/16/16 05:44 Duoneb 3 Mg/0.5 Mg (3 Ml) Ud INH RQ6 PRN Shortness of Breath Metronidazole 100 mls @ 100 mls/hr 10/08/16 11:15 10/21/16 08:18 Flagyl 500mg/100ml Ns IVPB 100 mls/hr Q8 RUTHY Administration Pantoprazole Sodium 40 mg/ 100 mls @ 20 mls/hr 10/12/16 10:15 10/21/16 04:27 Sodium Chloride IVPB 20 mls/hr Q5H RUTHY Administration 8 MG/HR Meropenem 500 mg/ Sodium 100 mls @ 100 mls/hr 10/13/16 21:00 10/20/16 21:07 Chloride IVPB 100 mls/hr Q12 RUTHY Administration Micafungin Sodium 100 mg/ 100 mls @ 100 mls/hr 10/15/16 14:00 10/21/16 08:18 Sodium Chloride IVPB 100 mls/hr DAILY RUTHY Administration Vancomycin HCl 750 mg/ Sodium 250 mls @ 166.667 mls/hr 10/20/16 09:00 10:45 Chloride IVPB 166.667 mls/hr TTS RUTHY Administration Sodium Chloride 30 meq/ Sodium 1,058.4089 mls @ 90 mls/hr 10/21/16 02:30 05:02 Acetate 80 meq/ Magnesium IV 10/21/16 14:15 90 mls/hr Sulfate 5 meq/ Calcium .[id number] ONE Administration Gluconate 4.5 meq/ Amino Acids Nitroglycerin/Dextrose 50 mg in 250 mls @ 7.5 mls/hr 10/21/16 07:47 10/21/16 08:30 Nitroglycerin 50 Mg/250 Ml D5w IV 10/22/16 07:46 7.5 mls/hr .Q24H ONE Administration Protocol 25 MCG/MIN Labetalol HCl 40 mg 10/17/16 10:21 10/21/16 05:04 Trandate IVP 40 mg Q4 RUTHY Administration Labetalol HCl 20 mg 10/17/16 10:45 10/21/16 08:00 Trandate IVP 20 mg Q2 PRN Administration high blood pressure Morphine Sulfate 4 mg 10/14/16 16:50 10/20/16 16:25 Morphine IVP 4 mg Q4 PRN Administration Pain, severe (8-10) Ondansetron HCl 4 mg 10/06/16 15:27 Zofran Inj IVP Q6 PRN Nausea/Vomiting - Patient Studies Lab Studies: Microbiology Studies 10/18/16 21:35 Blood Culture - Preliminary Blood-Venous NO GROWTH AFTER 48 HOURS 10/18/16 21:11 Blood Culture - Preliminary Blood-Venous NO GROWTH AFTER 48 HOURS Lab Studies 10/21/16 10/21/16 10/20/16 Range/Units 07:37 07:37 08:54 WBC 8.4 (4.8-10.8) K/uL RBC 2.95 L (4.40-5.90) Mil/uL Hgb 8.6 L (12.0-18.0) g/dL Hct 26.9 L (35.0-51.0) % MCV 91.2 (80.0-94.0) fl MCH 29.1 (27.0-31.0) pg MCHC 31.9 L (33.0-37.0) g/dL RDW 20.9 H (11.5-14.5) % Plt Count 116 L D (130-400) K/uL MPV (7.2-11.7) fl Neut % (Auto) (50.0-75.0) % Lymph % (Auto) (20.0-40.0) % [place] % (Auto) (0.0-10.0) % Eos % (Auto) (0.0-4.0) % Baso % (Auto) (0.0-2.0) % Neut # (1.8-7.0) K/uL Lymph # (1.0-4.3) K/uL [place] # (0.0-0.8) K/uL Eos # (0.0-0.7) K/uL Baso # (0.0-0.2) K/uL Neutrophils % (Manual) (42-75) % Band Neutrophils % (0-2) % Lymphocytes % (Manual) (20-50) % Monocytes % (Manual) (0-10) % Nucleated RBC % (0-0) % Platelet Estimate (NORMAL) Large Platelets Giant Platelets Polychromasia Hypochromasia (manual) Anisocytosis (manual) Target Cells Sodium 139 (132-148) mmol/l Potassium 3.6 (3.6-5.0) MMOL/L Chloride 99 (98-107) mmol/L Carbon Dioxide 27 (22-30) mmol/L Anion Gap 17 (10-20) BUN 68 H (9-20) mg/dl Creatinine 5.2 H (0.8-1.5) mg/dL Est GFR ( Amer) 14 Est GFR (Non-Af Amer) 12 Random Glucose 372 H (75-110) mg/dL Calcium 8.4 (8.4-10.2) mg/dL Phosphorus (2.5-4.5) mg/dl Magnesium (1.6-2.3) MG/DL Total Bilirubin (0.2-1.3) mg/dl Direct Bilirubin (0.0-0.4) mg/ml AST (17-59) U/L ALT (21-72) U/L Alkaline Phosphatase (38-126) U/L Lactate Dehydrogenase (313-618) U/L Total Protein (6.3-8.2) G/DL Albumin (3.5-5.0) g/dL Globulin (2.2-3.9) gm/dL Albumin/Globulin Ratio (1.0-2.1) RENAE, Poly Interpret Negative (NEGATIVE) 10/20/16 10/20/16 Range/Units 08:54 08:54 WBC 6.7 (4.8-10.8) K/uL RBC 3.12 L (4.40-5.90) Mil/uL Hgb 9.1 L (12.0-18.0) g/dL Hct 28.7 L (35.0-51.0) % MCV 92.1 (80.0-94.0) fl MCH 29.2 (27.0-31.0) pg MCHC 31.7 L (33.0-37.0) g/dL RDW 21.2 H (11.5-14.5) % Plt Count 174 (130-400) K/uL MPV 11.4 (7.2-11.7) fl Neut % (Auto) 60.2 (50.0-75.0) % Lymph % (Auto) 15.6 L (20.0-40.0) % [place] % (Auto) 21.2 H (0.0-10.0) % Eos % (Auto) 2.6 (0.0-4.0) % Baso % (Auto) 0.4 (0.0-2.0) % Neut # 4.0 (1.8-7.0) K/uL Lymph # 1.0 (1.0-4.3) K/uL [place] # 1.4 H (0.0-0.8) K/uL Eos # 0.2 (0.0-0.7) K/uL Baso # 0.0 (0.0-0.2) K/uL Neutrophils % (Manual) 53 (42-75) % Band Neutrophils % 6 H (0-2) % Lymphocytes % (Manual) 13 L (20-50) % Monocytes % (Manual) 28 H (0-10) % Nucleated RBC % 10 H (0-0) % Platelet Estimate Normal (NORMAL) Large Platelets Present Giant Platelets Present Polychromasia Slight Hypochromasia (manual) Moderate Anisocytosis (manual) Moderate Target Cells Slight Sodium 141 (132-148) mmol/l Potassium 3.8 (3.6-5.0) MMOL/L Chloride 101 (98-107) mmol/L Carbon Dioxide 26 (22-30) mmol/L Anion Gap 18 (10-20) BUN 84 H (9-20) mg/dl Creatinine 6.6 H (0.8-1.5) mg/dL Est GFR ( Amer) 11 Est GFR (Non-Af Amer) 9 Random Glucose 289 H (75-110) mg/dL Calcium 8.4 (8.4-10.2) mg/dL Phosphorus 5.9 H (2.5-4.5) mg/dl Magnesium 2.5 H (1.6-2.3) MG/DL Total Bilirubin 8.3 H (0.2-1.3) mg/dl Direct Bilirubin 7.3 H (0.0-0.4) mg/ml AST 66 H D (17-59) U/L ALT 47 (21-72) U/L Alkaline Phosphatase 92 (38-126) U/L Lactate Dehydrogenase 850 H (313-618) U/L Total Protein 6.6 (6.3-8.2) G/DL Albumin 2.7 L (3.5-5.0) g/dL Globulin 4.0 H (2.2-3.9) gm/dL Albumin/Globulin Ratio 0.7 L (1.0-2.1) RENAE, Poly Interpret (NEGATIVE) Laboratory Results - last 24 hr 10/20/16 10/20/16 10/20/16 08:54 08:54 08:54 WBC 6.7 RBC 3.12 L Hgb 9.1 L Hct 28.7 L MCV 92.1 MCH 29.2 MCHC 31.7 L RDW 21.2 H Plt Count 174 MPV 11.4 Neut % (Auto) 60.2 Lymph % (Auto) 15.6 L [place] % (Auto) 21.2 H Eos % (Auto) 2.6 Baso % (Auto) 0.4 Neut # 4.0 Lymph # 1.0 Searcy # 1.4 H Eos # 0.2 Baso # 0.0 Neutrophils % (Manual) 53 Band Neutrophils % 6 H Lymphocytes % (Manual) 13 L Monocytes % (Manual) 28 H Nucleated RBC % 10 H Platelet Estimate Normal Large Platelets Present Giant Platelets Present Polychromasia Slight Hypochromasia (manual) Moderate Anisocytosis (manual) Moderate Target Cells Slight Sodium 141 Potassium 3.8 Chloride 101 Carbon Dioxide 26 Anion Gap 18 BUN 84 H Creatinine 6.6 H Est GFR ( Amer) 11 Est GFR (Non-Af Amer) 9 Random Glucose 289 H Calcium 8.4 Phosphorus 5.9 H Magnesium 2.5 H Total Bilirubin 8.3 H Direct Bilirubin 7.3 H AST 66 H D ALT 47 Alkaline Phosphatase 92 Lactate Dehydrogenase 850 H Total Protein 6.6 Albumin 2.7 L Globulin 4.0 H Albumin/Globulin Ratio 0.7 L RENAE, Poly Interpret Negative 10/21/16 10/21/16 07:37 07:37 WBC 8.4 RBC 2.95 L Hgb 8.6 L Hct 26.9 L MCV 91.2 MCH 29.1 MCHC 31.9 L RDW 20.9 H Plt Count 116 L D MPV Neut % (Auto) Lymph % (Auto) [place] % (Auto) Eos % (Auto) Baso % (Auto) Neut # Lymph # [place] # Eos # Baso # Neutrophils % (Manual) Band Neutrophils % Lymphocytes % (Manual) Monocytes % (Manual) Nucleated RBC % Platelet Estimate Large Platelets Giant Platelets Polychromasia Hypochromasia (manual) Anisocytosis (manual) Target Cells Sodium 139 Potassium 3.6 Chloride 99 Carbon Dioxide 27 Anion Gap 17 BUN 68 H Creatinine 5.2 H Est GFR ( Amer) 14 Est GFR (Non-Af Amer) 12 Random Glucose 372 H Calcium 8.4 Phosphorus Magnesium Total Bilirubin Direct Bilirubin AST ALT Alkaline Phosphatase Lactate Dehydrogenase Total Protein Albumin Globulin Albumin/Globulin Ratio RENAE, Poly Interpret Review of Systems - Constitutional Constitutional: Weakness - EENT Eyes: As Per HPI Ears: As Per HPI - Cardiovascular Cardiovascular: UNREMARKABLE - Respiratory Respiratory: Dyspnea on Exertion - Gastrointestinal Gastrointestinal: Abdominal Pain - Genitourinary Genitourinary: Hematuria - Musculoskeletal Musculoskeletal: As Par HPI Assessment/Plan - Assessment and Plan (Free Text) Assessment: 1.Septic shock secondary to ischemic bowel, with Multi-organ Failure extubated on Venti mask FIO2 50 % saturating 98% CT abdomen report reviwed: resolution of pneumatosis intestinalis, central mesenteric venous gas,superior mesenteric venous gas, as well as portal venous gas. small abdominal and pelvic ascites. Patient with GOPI on HD still oliguric, had HD yesterday 10/20, , with shock liver ( elevated LFT-s and mark ) and ischemic bowel Critically ill with very poor prognosis General surgery, Vascular Sx, GI, pulmonary, ID on consult Continue Meropenem, Micafungin , Flagyl and Vancomycin 2. Thoracoabdominal Aortic Dissection, Recent Type A aortic aneurysm repair at [facility] 09/17/16 CTA abd and pelvis showed Thoracoabdominal aortic dissection involving distal thoracic segment and proximal aortic segment. Vascular surgery consulted- Dr Armendariz- rec to transfer pt back to [facility] for higher level of care. To be picked up at 9-30 this am. on Tridil drip for BP control 3. Ischemic/Necrotic bowel s/p exploratory laparatomy by general surgery showing necrotic small bowel and right colon No surgical intervention possible at this time Supportive care Surgery following Heparin was stopped due to thrombocytopenia and possibility of HIT. Argatroban hepatically dosed was started and stopped due to bleeding from NGT and ETT Poor prognosis On TPN, re-ordered , with minor adjustment in electrolytes [place] [facility] [place] for [place] transplant and recommended repair of aneurysm and no indication at present for transplant waiting transfer bed to SDU 4- GOPI likely due to decrease perfusion Pt started on Hemodialysis on 10/08 Had HD yesterday 10/20. 4 hours, UF 2 L 5. Thrombocytopenia-- improved Heparin induced thrombocytopenia ruled out: Plat 116 today Bilious secretions noted from NGT 6. Acute blood loss anemia/ UGI bleed had bloody output from NGTs and now with bilious output , also has hematuria now on protonix drip monitor for now GI on consult Transfused 2 units PRBC 7. Coagulopathy INR trending down to 1.7 Given VIT K and 6 unit FFP 8. Hypertension uncontrolled on Tridil drip 9.DVT prophylaxis SCD
--- NOTE | 2016-10-21 09:13 | CP.PCM.DIS ---
Provider - Provider Date of Admission: 10/06/16 14:18 Attending physician: Ade Crane DO Primary care physician: none Consults: ICU consult general and vascular surgery consult ID consult GI consult cardiology Hematology Nephrology Time Spent in preparation of Discharge (in minutes): 20 Hospital Course - Lab Results Lab Results: Micro Results 10/18/16 21:35 Blood-Venous Blood Culture - Preliminary NO GROWTH AFTER 48 HOURS 10/18/16 21:11 Blood-Venous Blood Culture - Preliminary NO GROWTH AFTER 48 HOURS 10/13/16 14:10 Blood-Venous Blood Culture - Final NO GROWTH AFTER 5 DAYS 10/13/16 14:10 Blood-Venous Gram Stain - Final TEST NOT PERFORMED 10/13/16 14:10 Blood-Venous Blood Culture - Final NO GROWTH AFTER 5 DAYS 10/13/16 14:10 Blood-Venous Gram Stain - Final TEST NOT PERFORMED 10/13/16 15:35 Urine,Ford Urine Culture - Final No Growth (<1,000 CFU/ML) 10/13/16 15:35 Trachasp Gram Stain - Final 10/13/16 15:35 Trachasp Sputum Culture - Final Yeast Species Most Recent Lab Values WBC 8.4 K/uL (4.8-10.8) 10/21/16 07:37 RBC 2.95 Mil/uL (4.40-5.90) L 10/21/16 07:37 Hgb 8.6 g/dL (12.0-18.0) L 10/21/16 07:37 Hct 26.9 % (35.0-51.0) L 10/21/16 07:37 MCV 91.2 fl (80.0-94.0) 10/21/16 07:37 MCH 29.1 pg (27.0-31.0) 10/21/16 07:37 MCHC 31.9 g/dL (33.0-37.0) L 10/21/16 07:37 RDW 20.9 % (11.5-14.5) H 10/21/16 07:37 Plt Count 116 K/uL (130-400) L D 10/21/16 07:37 MPV 11.4 fl (7.2-11.7) 10/20/16 08:54 Neut % (Auto) 60.2 % (50.0-75.0) 10/20/16 08:54 Lymph % (Auto) 15.6 % (20.0-40.0) L 10/20/16 08:54 Edmunds % (Auto) 21.2 % (0.0-10.0) H 10/20/16 08:54 Eos % (Auto) 2.6 % (0.0-4.0) 10/20/16 08:54 Baso % (Auto) 0.4 % (0.0-2.0) 10/20/16 08:54 Neut # 4.0 K/uL (1.8-7.0) 10/20/16 08:54 Lymph # 1.0 K/uL (1.0-4.3) 10/20/16 08:54 Edmunds # 1.4 K/uL (0.0-0.8) H 10/20/16 08:54 Eos # 0.2 K/uL (0.0-0.7) 10/20/16 08:54 Baso # 0.0 K/uL (0.0-0.2) 10/20/16 08:54 Neutrophils % (Manual) 53 % (42-75) 10/20/16 08:54 Band Neutrophils % 6 % (0-2) H 10/20/16 08:54 Lymphocytes % (Manual) 13 % (20-50) L 10/20/16 08:54 Reactive Lymphs % 3 % (0-0) H 10/09/16 04:20 Monocytes % (Manual) 28 % (0-10) H 10/20/16 08:54 Eosinophils % (Manual) 3 % (0-7) 10/10/16 04:20 Metamyelocytes % 3 % (0-0) H 10/07/16 06:00 Myelocytes % 1 % (0-0) H 10/09/16 04:20 Nucleated RBC % 10 % (0-0) H 10/20/16 08:54 Smudge Cells Present 10/09/16 04:20 Platelet Estimate Normal (NORMAL) 10/20/16 08:54 Large Platelets Present 10/20/16 08:54 Giant Platelets Present 10/20/16 08:54 Polychromasia Slight 10/20/16 08:54 Hypochromasia (manual) Moderate 10/20/16 08:54 Anisocytosis (manual) Moderate 10/20/16 08:54 Target Cells Slight 10/20/16 08:54 [place] Cells Slight 10/09/16 04:20 Acanthocytes (Spur) Moderate 10/09/16 04:20 PT 19.2 Seconds (9.8-13.1) H 10/19/16 04:20 INR 1.7 (0.9-1.2) H 10/19/16 04:20 APTT 41.7 Seconds (25.6-37.1) H D 10/18/16 04:20 Fibrinogen 601 mg/dl (200-400) H* 10/11/16 04:46 Puncture Site right radial 10/10/16 05:10 pCO2 39 mm/Hg (35-45) 10/15/16 05:50 pO2 96 mm/Hg (80-100) 10/15/16 05:50 HCO3 24.0 mmol/L (21-28) 10/15/16 05:50 ABG pH 7.39 (7.35-7.45) 10/15/16 05:50 ABG Total CO2 24.8 mmol/L (22-28) 10/15/16 05:50 ABG O2 Saturation 99.3 % (95-98) H 10/15/16 05:50 ABG O2 Content 13.1 ML/dL (15-23) L 10/15/16 05:50 ABG Base Excess -1.2 mmol/L (-2.0-3.0) 10/15/16 05:50 ABG Hemoglobin 9.6 g/dL (11.7-17.4) L 10/15/16 05:50 ABG Carboxyhemoglobin 1.7 % (0.5-1.5) H 10/15/16 05:50 POC ABG HHb (Measured) 0.7 % (0.0-5.0) 10/15/16 05:50 ABG Methemoglobin 1.9 % (0.0-3.0) 10/15/16 05:50 ABG O2 Capacity 13.2 mL/dL (16-24) L 10/15/16 05:50 Quirino Test Yes 10/15/16 05:50 ABG Potassium 4.5 mmol/L (3.6-5.2) 10/08/16 11:55 VBG pH 7.30 (7.32-7.43) L 10/08/16 11:56 VBG pCO2 29 mmHg (40-60) L 10/08/16 11:56 VBG HCO3 15.6 mmol/L 10/08/16 11:56 VBG Total CO2 15.2 mmol/L (22-28) L 10/08/16 11:56 VBG O2 Sat (Calc) 69.7 % (40-65) H 10/08/16 11:56 VBG Base Excess -10.7 mmol/L (0.0-2.0) L 10/08/16 11:56 VBG Potassium 3.4 mmol/L (3.6-5.2) L 10/08/16 11:56 A-a O2 Difference 212.0 mm/Hg 10/15/16 05:50 Hgb O2 Saturation 95.7 % (95.0-98.0) 10/15/16 05:50 Sodium 140.0 mmol/L (132-148) 10/08/16 11:56 Chloride 114.0 mmol/L (98-107) H 10/08/16 11:56 Glucose 96 mg/dL (75-110) 10/08/16 11:56 Lactate 5.6 mmol/L (0.7-2.1) H* 10/08/16 11:56 Vent Mode 50% vm 10/15/16 05:50 Mechanical Rate 18 10/14/16 05:17 FiO2 50.0 % 10/15/16 05:50 Tidal Volume 550 10/14/16 05:17 PEEP 5 10/14/16 11:01 Pressure Support 10 10/14/16 11:01 Crit Value Called To Dr bebeto franklin 10/09/16 04:47 Crit Value Called By Charlie 10/09/16 04:47 Crit Value Read Back Y 10/09/16 04:47 Blood Gas Notified Time 527 10/10/16 05:10 Sodium 139 mmol/l (132-148) 10/21/16 07:37 Potassium 3.6 MMOL/L (3.6-5.0) 10/21/16 07:37 Chloride 99 mmol/L (98-107) 10/21/16 07:37 Carbon Dioxide 27 mmol/L (22-30) 10/21/16 07:37 Anion Gap 17 (10-20) 10/21/16 07:37 BUN 68 mg/dl (9-20) H 10/21/16 07:37 Creatinine 5.2 mg/dL (0.8-1.5) H 10/21/16 07:37 Est GFR ( Amer) 14 10/21/16 07:37 Est GFR (Non-Af Amer) 12 10/21/16 07:37 Random Glucose 372 mg/dL (75-110) H 10/21/16 07:37 Lactic Acid 2.6 MMOL/L (0.7-2.1) H 10/15/16 04:20 Uric Acid 8.4 mg/Dl (3.5-8.5) 10/09/16 11:36 Calcium 8.4 mg/dL (8.4-10.2) 10/21/16 07:37 Phosphorus 5.9 mg/dl (2.5-4.5) H 10/20/16 08:54 Magnesium 2.5 MG/DL (1.6-2.3) H 10/20/16 08:54 Ferritin 207.0 ng/mL 10/19/16 04:20 Total Bilirubin 8.3 mg/dl (0.2-1.3) H 10/20/16 08:54 Direct Bilirubin 7.3 mg/ml (0.0-0.4) H 10/20/16 08:54 AST 66 U/L (17-59) H D 10/20/16 08:54 ALT 47 U/L (21-72) 10/20/16 08:54 Alkaline Phosphatase 92 U/L (38-126) 10/20/16 08:54 Lactate Dehydrogenase 850 U/L (313-618) H 10/20/16 08:54 Total Creatine Kinase 3949 U/L (55-170) H 10/09/16 11:36 Troponin I 0.0440 ng/mL (0.00-0.120) 10/06/16 12:15 Total Protein 6.6 G/DL (6.3-8.2) 10/20/16 08:54 Albumin 2.7 g/dL (3.5-5.0) L 10/20/16 08:54 Globulin 4.0 gm/dL (2.2-3.9) H 10/20/16 08:54 Albumin/Globulin Ratio 0.7 (1.0-2.1) L 10/20/16 08:54 Triglycerides 228 mg/DL (0-149) H 10/19/16 10:12 Lipase 46 U/L (23-300) 10/06/16 12:15 UF Heparin Interp Negative (Negative) 10/16/16 08:55 Vitamin B12 892 pg/mL (239-931) 10/19/16 04:20 Folate 9.2 ng/mL 10/19/16 04:20 Procalcitonin 43.44 NG/ML (0.19-0.49) H 10/15/16 04:20 Arterial Blood Potassium 4.5 mmol/L (3.6-5.2) 10/08/16 11:55 Venous Blood Potassium 3.4 mmol/L (3.6-5.2) L 10/08/16 11:56 Urine Color Jennifer (YELLOW) 10/13/16 15:35 Urine Clarity Cloudy (Clear) 10/13/16 15:35 Urine pH 5.0 (5.0-8.0) 10/13/16 15:35 Ur Specific [place] 1.020 (1.003-1.030) 10/13/16 15:35 Urine Protein 100 mg/dL (NEGATIVE) 10/13/16 15:35 Urine Glucose (UA) Neg mg/dL (Normal) 10/13/16 15:35 Urine Ketones Trace mg/dL (NEGATIVE) 10/13/16 15:35 Urine Blood Large (NEGATIVE) 10/13/16 15:35 Urine Nitrate Negative (NEGATIVE) 10/13/16 15:35 Urine Bilirubin Negative (NEGATIVE) 10/13/16 15:35 Urine Urobilinogen 0.2-1.0 mg/dL (0.2-1.0) 10/13/16 15:35 Ur Leukocyte Esterase Trace Frantz/uL (Negative) 10/13/16 15:35 Urine RBC (Auto) 57 /hpf (0-3) H 10/13/16 15:35 Urine Microscopic WBC 16 /hpf (0-5) H 10/13/16 15:35 Ur Squamous Epith Cells < 1 /hpf (0-5) 10/13/16 15:35 Urine Bacteria Rare (<OCC) 10/13/16 15:35 Urine Yeast (Budding) Mod /hpf (NEGATIVE) H 10/13/16 15:35 Urine Osmolality 341 mosm/kg (300-1000) 10/09/16 11:29 Ur Random Creatinine 126.6 mg/dL 10/09/16 11:29 Ur Random Sodium 23 mmol/L 10/09/16 11:29 Stool Occult Blood Positive (NEGATIVE) H 10/06/16 16:05 Vancomycin Trough 7.3 ug/mL (5.0-10.0) 10/19/16 08:44 Heparin-induced Plt Ab Weak positive (Negative) H 10/16/16 12:02 VALERY UFH Low Dose 0.1 0 % Release 10/16/16 08:55 VALERY UFH Low Dose 0.5 0 % Release 10/16/16 08:55 VALERY UFH High Dose 100 0 % Release 10/16/16 08:55 Hep Bs Antigen Negative (NEGATIVE) 10/08/16 21:44 Hep Bs Antibody Negative (NEGATIVE) 10/08/16 21:44 Hep B Core IgM Ab Negative (NEGATIVE) 10/08/16 21:44 HIV 1&2 Antibody Screen Negative (NEGATIVE) 10/15/16 14:31 Blood Type O POSITIVE 10/18/16 08:35 Blood Type Confirm O POSITIVE 10/06/16 16:59 Antibody Screen Negative 10/18/16 08:35 RENAE, Poly Interpret Negative (NEGATIVE) 10/20/16 08:54 Crossmatch See Detail 10/18/16 08:35 BBK History Checked Patient has bt 10/18/16 08:35 - Hospital Course Hospital Course: 51 y/o male with PMH Type A aortic aneurysm repair at [facility] by Dr. Wheat ( ), back pain, HTN,cocaine abuse history ( as per friends) presented with severe sharp abdominal pain associated with nausea and emesis for two days. In ER, pt found to have intractable abdominal pain, disproportionate to exam. CT showed evidence of mesenteric ischemia/infarction. Seen by surgery in ER and taken to OR for emergent exploratory laparatomy by Dr. Sanchez that showed ischemic small bowel and right colon. No surgical intervention could be done, the patient was closed up and transferred to ICU for medical care. He was intubated for airway support was placed on on Fentanyl drip for sedation and pain control . He was weaned off and extubated and at present on Venturi mask afebrile,moaning in pain , more awake today, following commands , complaining of abdominal pain, off Fentanyl drip , on TPN and Tridil drip for BP control. CTA abdomen and chest showed 1. resolution of pneumatosis intestinalis, central mesenteric venous gas,superior mesenteric venous gas, as well as portal venous gas. Small and large bowel are limited evaluation due to lack of oral contrast administration this patient. Enteric colitis is not completely excluded. Pancolitis is a possibility ,no free intrarenal gas. Limited abdominal and pelvic ascites. 2. 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 At and below the level of the celiac artery origin, artifacts obscure evaluation of the abdominal aorta [facility] Dr. Wheat was contacted and informed about patient's condition and findings in CT .Vascular surgery was consulted and recommended transfer to [facility] and continuation of medical management.Today will transfer patient to [facility] See below for details in care and management . 1.Septic shock secondary to ischemic bowel, with Multi-organ Failure s/p exploratory laparatomy that revealed ischemic bowel.Closed up since no surgical intervention was possible, transferred to ICu intubated At present extubated on Venti mask FIO2 50 % saturating 98% off Fentanyl drip. on Morphine IV for pain control CT abdomen showed 1. resolution of pneumatosis intestinalis, central mesenteric venous gas,superior mesenteric venous gas, as well as portal venous gas. Small and large bowel are limited evaluation due to lack of oral contrast administration this patient. Enteric colitis is not completely excluded. Pancolitis is a possibility ,no free intrarenal gas. Limited abdominal and pelvic ascites. 2. 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 At and below the level of the celiac artery origin, artifacts obscure evaluation of the abdominal aorta Patient with GOPI on HD still anuric ( last HD 10/20/16) , with shock liver ( elevated LFT-s and mark ) and ischemic bowel Critically ill with very poor prognosis General surgery, Vascular Sx, GI, pulmonary, ID on consult Continue Meropenem, Micafungin , Flagyl and Vancomycin on TPN for feeding 2. Thoracoabdominal Aortic Dissection, Recent Type A aortic aneurysm repair at [facility] 09/17/16 CTA abd and pelvis showed Thoracoabdominal aortic dissection involving distal thoracic segment and proximal aortic segment. Vascular surgery consulted- discussed case with Dr Armendariz- rec to transfer pt back to [facility] for higher level of care. Contacted Dr Wheat from [facility]- reviewed imaging and said that patient does not need surgical correction only medical management Will transfer patient today to [facility] ICU on Tridil drip for BP control 3. Ischemic/Necrotic bowel Most likely secondary to hypoperfusion due to aortic dissection s/p exploratory laparatomy by general surgery showing necrotic small bowel and right colon No surgical intervention possible at this time Supportive care CTA abd and pelvis read as pancolitis ,Diffusely fluid-filled small bowel loops without definite obstruction. Previously seen bowel pneumatosis is no longer identified. Surgery following initially was started on Heparin that was stopped since patient developed thrombocytopenia. HIT was ruled out Argatroban hepatically dosed was started and stopped due to bleeding from NGT and ETT Poor prognosis PICC line placed and TPN infusion ongoing Minimal trial of NGT feeding with only 22 ml started 10/24 and stopped since abdomen became more distended and patient appeared in discomfort. No output from rectum since admission Continue pain control Dr. Noguera at [facility] [place] contacted about possible transfer for bowel transplant and recommended repair of aneurysm and no indication at present for transplant Will transfer to [facility] today 4.Elevated transaminases and bilirubin likely Shock Liver NGT in place with bilious secretions LFT-s trended down but bilirubin trending up today 9.9 most likely secondary to cholestasis 5. GOPI likely due to decreased perfusion Pt started on Hemodialysis on 10/08. Last HD 10/20 Nephrology consult - Dr Claudia Law HD cath placed to right groin cont HD 6. Pt did not have CABG-- clarified with surgeon Cardio consult : Dr Putnam Echo showed normal EF 7.Paroxysmal A Fib with RVR episode resolved, now back in SR received Amiodarone, off drip Cardio consulted 8. Thrombocytopenia-- improved Heparin induced thrombocytopenia ruled out 9. Acute blood loss anemia/ UGI bleed had bloody output from NGTs and now with bilious output on protonix drip monitor for now GI on consult Transfused 2 units PRBC 10. Coagulopathy INR trending down to 1.7 Given VIT K and 6 unit FFP 11. Hypertension uncontrolled on Tridil drip 12. Hematuria Due to traumatic ford , patient pulled his ford overnight patient is anuric with 10-20 ml output. 12.DVT prophylaxis SCD Discharge Exam - Head Exam Head Exam: ATRAUMATIC, NORMAL INSPECTION, NORMOCEPHALIC Additional comments: more awake, alert , following simple commands - Eye Exam Eye Exam: EOMI, PERRL Pupil Exam: NORMAL ACCOMODATION - ENT Exam ENT Exam: Mucous Membranes Dry, Normal Exam - Neck Exam Neck exam: Normal Inspection - Respiratory Exam Respiratory Exam: Decreased Breath Sounds (bibasilar ), NORMAL BREATHING PATTERN. absent: Wheezes Additional comments: coarse breath sounds bilaterally - Cardiovascular Exam Cardiovascular Exam: REGULAR RHYTHM, RRR, +S1, +S2. absent: JVD - GI/Abdominal Exam GI & Abdominal Exam: Normal Bowel Sounds, Soft. absent: Distended, Guarding, Rebound, Tenderness - Rectal Exam Rectal Exam: Deferred - Extremities Exam Extremities exam: normal capillary refill, normal inspection, pedal pulses present Additional comments: anasarca - Neurological Exam Neurological exam: Alert Additional comments: awake , follows simple command - Psychiatric Exam Psychiatric exam: Flat Affect - Skin Skin Exam: Dry, Pallor, Warm Additional comments: LUE and right upper thigh skin tear Discharge Plan - Discharge Medications Prescriptions: Meropenem 500 mg IV Q12 #14 vial Metronidazole [Flagyl] 500 mg PO Q8 #21 tablet Micafungin [Mycamine] 100 mg IV DAILY #7 vial Pantoprazole 40mg/100ml IVPB [Protonix 40mg IVPB] 40 mg IV BID #20 bag Vancomycin [Vancomycin Inj] 750 mg IVPB TTS #7 vial - Follow Up Plan Condition: GUARDED Disposition: Trans to Other Acute Care Hosp Patient education suggested?: No Additional Instructions: Discharge to [facility] Admit to medical ICU under service on TPN for feeding
[2016-10-21] MEDS ORDERED: Nicardipine 20 MG/200 ML 20 MG/200 ML BAG IV ONE (09:39)
[2016-10-21 11:53] VITALS: O2SAT 94
[2016-10-21 11:54] VITALS: BP 142/67; PULSE 79; RESP 24
== END 2016-10-21 10:30 | disposition short-term general hospital (02) | DRG 853 ==
LOC: H.ER 11:42 → H.ERHOLD 14:18 → H.ICU/CCU 20:27
PROVIDERS: ADMIT Student in an Organized Health Care Education/Training Program; ATTEND Student in an Organized Health Care Education/Training Program
PROC: 0WJG0ZZ Inspection of Peritoneal Cavity, Open Approach (ICD-10-PCS; 2016-10-06)
PROC: 5A1955Z Respiratory Ventilation, Greater than 96 Consecutive Hours (ICD-10-PCS; 2016-10-06)
PROC: 0BH17EZ Insertion of Endotracheal Airway into Trachea, Via Natural or Artificial Opening (ICD-10-PCS; principal; 2016-10-06 18:00)
PROC: 06HM33Z Insertion of Infusion Device into Right Femoral Vein, Percutaneous Approach (ICD-10-PCS; 2016-10-08)
PROC: 5A1D60Z (ICD-10-PCS; 2016-10-09)
PROC: 02HV33Z Insertion of Infusion Device into Superior Vena Cava, Percutaneous Approach (ICD-10-PCS; 2016-10-15)
PROC: B518ZZA Fluoroscopy of Superior Vena Cava, Guidance (ICD-10-PCS; 2016-10-15)
PROC: B548ZZA Ultrasonography of Superior Vena Cava, Guidance (ICD-10-PCS; 2016-10-15)
DX: A41.9 Sepsis, unspecified organism (principal); K55.029 Acute infarction of small intestine, extent unspecified; I71.01 Dissection of thoracic aorta; I71.03 Dissection of thoracoabdominal aorta; J96.01 Acute respiratory failure with hypoxia; K72.00 Acute and subacute hepatic failure without coma; J90 Pleural effusion, not elsewhere classified; N17.0 Acute kidney failure with tubular necrosis; G93.41 Metabolic encephalopathy; J18.9 Pneumonia, unspecified organism; K55.049 Acute infarction of large intestine, extent unspecified; R65.21 Severe sepsis with septic shock; E87.4 Mixed disorder of acid-base balance; D68.9 Coagulation defect, unspecified; I31.3 Pericardial effusion (noninflammatory); D62 Acute posthemorrhagic anemia; J98.11 Atelectasis; K56.60 Unspecified intestinal obstruction; R18.8 Other ascites; K92.2 Gastrointestinal hemorrhage, unspecified; D69.59 Other secondary thrombocytopenia; D75.82 Heparin induced thrombocytopenia (HIT); I10 Essential (primary) hypertension; I25.10 Atherosclerotic heart disease of native coronary artery without angina pectoris; I48.0 Paroxysmal atrial fibrillation; I51.7 Cardiomegaly; K57.90 Diverticulosis of intestine, part unspecified, without perforation or abscess without bleeding; N20.0 Calculus of kidney; Z87.442 Personal history of urinary calculi; Z87.891 Personal history of nicotine dependence; Z88.8 Allergy status to other drugs, medicaments and biological substances; Z95.1 Presence of aortocoronary bypass graft; Z99.2 Dependence on renal dialysis; F14.10 Cocaine abuse, uncomplicated; I71.2 Thoracic aortic aneurysm, without rupture; R00.0 Tachycardia, unspecified; R06.82 Tachypnea, not elsewhere classified